=== PATIENT | female | born 1955 | race Hispanic/Latino ===

== ENCOUNTER 2016-11-04 11:19 | Inpatient (IN) | payer OTHER ==
--- NOTE | 2016-11-04 11:56 | C.PDOC ---
History Of Present Illness 61 y/o female PMHx diabetes, HTN, hyperthyroidism, depression, anxiety, peripheral edema brought in by EMS in rapid AFib, given 12.5 mg cardizem in the field. Pt states she "can't think straight" and reports occasional SOB. Denies headache, chest pain, nausea, vomiting, fever, abdominal pain, diarrhea, constipation or any other complaints. Pt is poor historian. Time Seen by Provider: 11/04/16 11:21 Chief Complaint (Nursing): Weakness/Neurological Deficit History Per: Patient History/Exam Limitations: no limitations Current Symptoms Are (Timing): Still Present Recent travel outside of the [place]: No Additional History Per: EMS Past Medical History Reviewed: Historical Data, Nursing Documentation, Vital Signs Vital Signs: Last Vital Signs Temp 99.4 F 11/04/16 11:32 Pulse 154 H 11/04/16 11:32 Resp 25 H 11/04/16 11:32 BP 148/88 11/04/16 11:32 Pulse Ox 90 L 11/04/16 12:00 - Medical History PMH: Anxiety, Arthritis, Bronchitis, Depression, Diabetes, HTN, Hyperthyroidism , Peripheral Edema - [facility] Procedures CENTRAL VENOUS CATHETER PLACEMENT WITH GUIDANCE (04/14/15) Family History: States: Unknown Family Hx - Social History Hx Tobacco Use: Yes Hx Alcohol Use: No Hx Substance Use: No - Immunization History Hx Tetanus Toxoid Vaccination: No Hx Influenza Vaccination: No Hx Pneumococcal Vaccination: No Review Of Systems Constitutional: Negative for: Fever, Chills Cardiovascular: Negative for: Chest Pain Respiratory: Positive for: Shortness of Breath Gastrointestinal: Negative for: Nausea, Vomiting, Abdominal Pain, Diarrhea, Constipation Neurological: Negative for: Headache Physical Exam - Physical Exam Appears: No Acute Distress, Unkempt, Other (obese) Skin: Warm, Dry Head: Atraumatic, Normacephalic Eye(s): bilateral: EOMI Neck: Normal ROM, Supple Chest: Symmetrical Cardiovascular: Rhythm Regular, No Murmur Respiratory: No Rales, No Rhonchi, Wheezing (scattered) Gastrointestinal/Abdominal: Soft, No Tenderness Extremity: Other (severe bilateral lower extremity cellulitis with bulla and oozing) Neurological/Psych: Oriented x3 ED Course And Treatment - Laboratory Results Result Diagrams: 11/04/16 12:14 11/04/16 12:14 O2 Sat by Pulse Oximetry: 90 (on room air) Pulse Ox Interpretation: Normal Medical Decision Making Medical Decision Making: Plan: EKG, CXR, labs, cardizem, UA Spoke with Dr. Carbajal, patient with DKA, needs ICU. Spoke with Dr. Redmond , will accept the admission Disposition Discussed With : Pablo Chin Doctor Will See Patient In The: Hospital - Disposition Disposition: HOSPITALIZED Disposition Time: 13:16 Condition: CRITICAL - Clinical Impression Clinical Impression: DKA (diabetic ketoacidoses), Diabetes, Bilateral lower leg cellulitis - Scribe Statement The provider has reviewed the documentation as recorded by the Emma Chen Provider Attestation: All medical record entries made by the Emma were at my direction and personally dictated by me. I have reviewed the chart and agree that the record accurately reflects my personal performance of the history, physical exam, medical decision making, and the department course for this patient. I have also personally directed, reviewed, and agree with the discharge instructions and disposition. Decision To Admit - Pt Status Changed To: Hospital Disposition Of: Inpatient - Admit Certification Admit to Inpatient:: After my assessment, the patient will require hospitalization for at least two midnights. This is because of the severity of symptoms shown, intensity of services needed, and/or the medical risk in this patient being treated as an outpatient. - InPatient: Physician Admission Certification: I certify that this patient requires 2 or more midnights of care for the following reason:: dka - . Bed Request Type: ICU Patient Diagnosis: DKA (diabetic ketoacidoses), Diabetes, Bilateral lower leg cellulitis
--- NOTE | 2016-11-04 12:04 | RAD ---
HISTORY: Sepsis Patient COMPARISON: 04/16/2015. FINDINGS: LUNGS: No focal airspace opacity. Hilar enlargement bilaterally. PLEURA: No significant pleural effusion identified, no pneumothorax apparent. CARDIOVASCULAR: Mildly enlarged cardiomediastinal silhouette when compared to prior radiograph. OSSEOUS STRUCTURES: No significant abnormalities. VISUALIZED UPPER ABDOMEN: Upper abdomen is suboptimally evaluated. OTHER FINDINGS: Interval removal of left-sided PICC. IMPRESSION: Bilateral hilar enlargement again noted. Interval removal of left-sided PICC. Mildly enlarged cardiomediastinal silhouette when compared to prior radiograph. Recommend PA lateral chest radiograph if possible.
[2016-11-04] MEDS ORDERED: (Novolin R) Insulin Human Regular 100 units/ml vial IV ONE (12:11)
[2016-11-04 12:22] LABS: BASO % 0.3 % (0.0-2.0)
[2016-11-04 12:26] LABS: CHLORIDE 91 mmol/L (98-107)
[2016-11-04 12:27] LABS: POTASSIUM 5.1 mmol/L (3.6-5.2); SODIUM 129 mmol/L (132-148)
[2016-11-04 12:28] LABS: INR 1.3
[2016-11-04 12:29] LABS: CARBON DIOXIDE 18 mmol/L (22-30); GFR AFRICAN-AMERICAN 55
[2016-11-04 12:30] LABS: ALB/GLOB RATIO 1.3 (1.0-2.1); ALKALINE PHOSPHATASE 157 U/L (38-126); ALT/SGPT 96 U/L (9-52); AST/SGOT 77 U/L (14-36); BILIRUBIN,TOTAL 1.3 mg/dL (0.2-1.3); BLOOD UREA NITROGEN 44 mg/dL (7-17); CALCIUM 8.9 mg/dl (8.6-10.4); TOTAL PROTEIN 6.1 g/dL (6.3-8.3)
[2016-11-04 12:31] LABS: MAGNESIUM 2.4 mg/dL (1.6-2.3)
[2016-11-04] MEDS ORDERED: (Novolin R) Insulin Human Regular 100 units/ml vial ONE (12:31)
[2016-11-04 12:34] LABS: VENOUS BLOOD GAS BASE EXCESS -4.5 mmol/L (0.0-2.0); VENOUS BLOOD GAS PCO2 59 mmHg (40-60); VENOUS BLOOD PH 7.22 (7.32-7.43)
[2016-11-04 12:40] LABS: RBC URINE 2 /hpf (0-3); URINE BACTERIA RARE (<OCC); URINE BILIRUBIN NEGATIVE (NEGATIVE); URINE BLOOD NEGATIVE (NEGATIVE); URINE COLOR Yellow (YELLOW); URINE GLUCOSE (UA) 3+ mg/dL (Normal); URINE KETONE NEGATIVE (NEGATIVE); URINE LEUKOCYTE ESTERASE NEG Leu/uL (Negative); URINE PROTEIN NEGATIVE (NEGATIVE); URINE UROBILINOGEN NORMAL mg/dL (0.2-1.0); WBC URINE 2 /hpf (0-5)
[2016-11-04 12:40] LABS: HEMATOCRIT 49.7 % (34.0-47.0); LYMPH % 9.5 % (20.0-40.0); MEAN CELL VOLUME 94.1 fL (81.0-99.0); MEAN CORPUSCULAR HEMOGLOBIN 29.2 pg (27.0-31.0); MEAN PLATELET VOLUME 9.4 fL (7.2-11.7); MONO # 0.9 K/uL (0.0-0.8); NRBC % 0.1 % (0.0-2.0); PLATELET COUNT 261 K/uL (130-400); RED CELL DISTRIBUTION WIDTH 15.2 % (11.5-14.5); WHITE BLOOD COUNT 10.5 K/uL (4.8-10.8)
[2016-11-04] MEDS ORDERED: Sodium Chloride 0.9% 1,000 ML IV ONE (12:43)
[2016-11-04 12:50] LABS: GLUCOSE,RANDOM 1023 mg/dL (65-105)
[2016-11-04 12:53] LABS: NEUTROPHIL 82 % (50-75); TOTAL CELLS COUNTED 100
[2016-11-04] MEDS ORDERED: Piperacillin/Tazobact 3.375 gm 100 ML IV STA (13:04)
[2016-11-04] MEDS ORDERED: Insulin Human Regular 100 UNIT in Sodium Chloride 0.9% 99 ML IV SCH ×2 (13:15→18:06)
--- NOTE | 2016-11-04 15:57 | CP.CCUPN ---
CCU Subjective - Physician Review Events Since Last Encounter (Free Text): 11/04/16 16:21 61 F with past medical history of diabetes, HTN, hyperthyroidism, depression, anxiety, and peripheral edema brought in by EMS in rapid A-fib and hyperglycemia. Patient was given 12.5 mg cardizem in the field. Patient had difficulties with thinking and reported occasional SOB. Patient was found to be in DKA, has a random glucose level of 1023. Urine is negative for ketones. Patient denies, headache, chest pain, nausea, vomiting, fever, abdominal pain, diarrhea, constipation. Patient is a poor historian due to altered mental status. She was started on IV Hydrations, insulin drip and cardiazem drip CCU Objective - Vital Signs / Intake & Output Vital Signs (Last 4 hours): Vital Signs Temp Pulse Resp BP Pulse Ox 11/04/16 14:30 98.9 F 133 H 22 156/98 H 96 11/04/16 13:18 90 L - Physical Exam Physical Exam Limitations: Positive for: Clinical Condition Head: Positive for: Atraumatic, Normocephalic Pupils: Positive for: PERRL. Negative for: Sluggish, Non-Reactive Extroacular Muscles: Positive for: EOMI. Negative for: Gaze Palsy Conjunctiva: Positive for: Normal. Negative for: Injected, Icteric Neck: Positive for: Normal Range of Motion, Trachea Midline. Negative for: Meningeal Signs, MIDLINE TENDERNESS, Paraspinal Tenderness, JVD, Lymphadenopathy , Bruit, Other Respiratory/Chest: Positive for: Wheezes, Decreased Breath Sounds. Negative for : Rales Cardiovascular: Positive for: Irregular Rhythm, Peripheal Pulses Present, Tachycardic. Negative for: Murmurs, Normal S1, S2 Abdomen: Negative for: Tenderness, Distention - Medications Active Medications: Active Medications Generic Name Dose Route Start Last Admin Trade Name Freq PRN Reason Stop Dose Admin Albuterol/Ipratropium 3 ml 11/04/16 15:49 Duoneb 3 Mg/0.5 Mg (3 Ml) Ud INH 11/04/16 15:50 RSTAT STA Diltiazem HCl 125 mg/ Sodium 125 mls @ 5 mls/hr 11/04/16 11:41 11/04/16 12:15 Chloride IV 11/05/16 11:40 5 mls/hr .Q24H ONE Administration 5 MG/HR Insulin Human Regular 100 unit 100 mls @ 2 mls/hr 11/04/16 13:15 11/04/16 14:00 / Sodium Chloride IV 2 mls/hr .Q24H CRISTOBAL Administration Vancomycin HCl 250 mls @ 166.667 mls/hr 11/04/16 13:15 Vancomycin 1gm In Normal Saline Addvantage IV STAT CRISTOBAL Nystatin 0 ea 11/04/16 18:00 Mycostatin Cream TOP TID CRISTOBAL - Patient Studies Lab Studies: Lab Studies 11/04/16 11/04/16 Range/Units 14:51 13:31 POC Glucose (mg/dL) > 500 H* > 500 H* (65-110) mg/dL Laboratory Results - last 24 hr 11/04/16 11/04/16 13:31 14:51 POC Glucose (mg/dL) > 500 H* > 500 H* Fingerstick Blood Sugar Results: 500 Assessment/Plan (1) DKA (diabetic ketoacidoses) Current Visit: Yes Status: Acute (2) Bilateral lower leg cellulitis Current Visit: Yes Status: Acute Comment: (3) Hypothyroidism Current Visit: No Status: Acute (4) Obesity (BMI 30-39.9) Current Visit: No Status: Acute (5) HTN (hypertension) Current Visit: No Status: Chronic Comment: (6) Lymphedema of both lower extremities Current Visit: No Status: Acute (7) Type II diabetes mellitus Current Visit: No Status: Acute (8) Hyperthyroidism Current Visit: No Status: Chronic Comment: TSH 0.05 follow up outpatient (9) Prophylactic measure Current Visit: No Status: Acute Comment: Lovenox 40mg SC daily Protonix 40mg PO Daily - Assessment and Plan (Free Text) Plan: Neuro: Neurochecks q4 Cardio: Rapid A-fib @ 168 bpm Diltiazem 125 @ 5 cc/hr IV Q24H, 15 mg/hr, titrate for HR control <100 NT Pro BNPL 9500 11/04 EKG: atrial fibrillation + RVR @ 153 bpm Pulm: Maintain O2 Sat >92% VBG pH 7.22, CO2 59, O2 45, HCO3 20.7, VBG O2 Sat 76.2 Imagin/17 CXR: bilateral hilar enlargement. Interval removal of left sided PICC, mildly enlarged cardiomediastinal silhouette when compared to prior radiographs. Lateral PA radiograph recommended. Endo: HHS Vs DKA SOsm 331, with glucose of 1023 Glucose 1023 Sodium 129 Potassium 5.1 Agressive hydration and volume resuscitations Insulin drip Human Regular 100 cc @ 2 cc/hr IV Q24H CRISTOBAL~ 100 units Novolin R / NS 99cc IV 2 cc/hr Accucheck q4 Monitor potassium q4~ GI: NPO, IV protonix Renal: BUN/Cr: 44/1.2 UA: pH 5.0, specific gravity 1.025, negative for ketones, 3+ H for Glucose Monitor I/Os Hyponatremic~ ID: Daily CBC IV Zosyn and IV Vancomycin Prophylaxis: DVT: SQ Lovenox GI: IV protonix
[2016-11-04] MEDS ORDERED: Albuterol-Ipratrop 3 mg / 0.5 (3 ml) UD INH STA (16:11)
[2016-11-04] MEDS ORDERED: Piperacillin/Tazobact 3.375 GM in Sodium Chloride 0.9% 100 ML IVPB STA (16:14)
--- NOTE | 2016-11-04 16:21 | RAD ---
HISTORY: R/O Congesion COMPARISON: Comparison is made to the previous study dated 11/04/2016 FINDINGS: LUNGS: No significant interval change in the lungs since the previous exam. PLEURA: Blunting of the right costophrenic angle. CARDIOVASCULAR: The heart is enlarged. OSSEOUS STRUCTURES: No significant abnormalities. VISUALIZED UPPER ABDOMEN: Normal. OTHER FINDINGS: None. IMPRESSION: No significant interval change compared to the previous study.
[2016-11-04] MEDS: Piperacill/Tazo 3.375gm in Dex 50 ML IVPB SCH ×2 (16:40→23:13)
[2016-11-04] MEDS ORDERED: Sodium Chloride 0.9% 1,000 ML IV SCH (18:15)
[2016-11-04] MEDS: Enoxaparin 40 mg Syringe SC SCH (18:24)
[2016-11-04] MEDS: Nystatin 100,000 Units/gm Cream(15 gm) TOP SCH (18:25)
[2016-11-04] MEDS: Vancomycin 1 gm/NS 200 ml 200 ML IVPB SCH (18:28)
[2016-11-04] MEDS ORDERED: Metoprolol 1 mg/ml Inj IVP STA (19:30)
[2016-11-04 19:41] LABS: ABG ALLEN TEST POS; ARTERIAL BLOOD HGB O2 SAT 96.9 % (95.0-98.0); DRAW SITE RRA; HHB 0.1 % (0.0-5.0)
[2016-11-04] MEDS: Metoprolol 1 mg/ml Inj IVP SCH (20:17)
[2016-11-04 21:49] LABS: POTASSIUM 4.3 mmol/L (3.6-5.2)
[2016-11-04 21:51] LABS: ALB/GLOB RATIO 1.2 (1.0-2.1); BILIRUBIN,TOTAL 0.8 mg/dL (0.2-1.3); PHOSPHOROUS 5.9 mg/dL (2.5-4.5); TOTAL PROTEIN 5.8 g/dL (6.3-8.3)
[2016-11-04 21:52] LABS: CALCIUM 8.8 mg/dl (8.6-10.4); MAGNESIUM 2.4 mg/dL (1.6-2.3)
[2016-11-05] MEDS: Dextrose 5%/0.45% NS 1,000 ML IV SCH ×2 (01:10→12:57)
[2016-11-05] MEDS ORDERED: Insulin Human Regular 100 UNIT in Sodium Chloride 0.9% 99 ML IV SCH (01:30)
[2016-11-05] MEDS: Metoprolol 1 mg/ml Inj IVP SCH ×4 (01:49→19:31)
[2016-11-05] MEDS: Vancomycin 1 gm/NS 200 ml 200 ML IVPB SCH ×2 (05:02→16:34)
[2016-11-05] MEDS: Piperacill/Tazo 3.375gm in Dex 50 ML IVPB SCH ×4 (05:02→21:45)
[2016-11-05 05:11] LABS: BASO % 0.2 % (0.0-2.0); EOS % 0.2 % (0.0-4.0); HEMATOCRIT 41.3 % (34.0-47.0); LYMPH # 3.1 K/uL (1.0-4.3); LYMPH % 16.8 % (20.0-40.0); MEAN CELL VOLUME 88.1 fL (81.0-99.0); MEAN CORPUSCULAR HEMOGLOBIN 29.3 pg (27.0-31.0); MEAN CORPUSCULAR HGB CONC 33.3 g/dL (33.0-37.0); MEAN PLATELET VOLUME 8.8 fL (7.2-11.7); MONO # 1.7 K/uL (0.0-0.8); RED CELL DISTRIBUTION WIDTH 14.3 % (11.5-14.5); WHITE BLOOD COUNT 18.6 K/uL (4.8-10.8)
[2016-11-05 05:24] LABS: POTASSIUM 4.3 mmol/L (3.6-5.2)
[2016-11-05 05:26] LABS: BILIRUBIN,TOTAL 1.2 mg/dL (0.2-1.3); TOTAL PROTEIN 5.5 g/dL (6.3-8.3)
[2016-11-05 05:27] LABS: CALCIUM 8.7 mg/dl (8.6-10.4)
[2016-11-05 05:28] LABS: MAGNESIUM 2.3 mg/dL (1.6-2.3)
[2016-11-05 08:35] LABS: ABG ALLEN TEST PO; ARTERIAL BLOOD HGB O2 SAT 96.2 % (95.0-98.0); CARBOXYHEMOGLOBIN 2.2 % (0.5-1.5); DRAW SITE RRA; HHB 0.6 % (0.0-5.0); METHEMOGLOBIN 0.9 % (0.0-3.0)
[2016-11-05] MEDS: Enoxaparin 40 mg Syringe SC SCH (09:11)
[2016-11-05] MEDS: Nystatin 100,000 Units/gm Cream(15 gm) TOP SCH ×3 (09:12→18:28)
[2016-11-05] MEDS: (Novolin R) Insulin Human Regular 100 units/ml vial SC SCH ×3 (12:56→21:30)
--- NOTE | 2016-11-05 18:58 | CP.CCUPN ---
CCU Subjective - Physician Review Events Since Last Encounter (Free Text): 11/05/16 18:55 Patient seen and examined in the intensive care unit. Case discussed in the morning rounds. Overnight placed on BiPAP for respiratory distress poorly Response Afebrile On Cardizem drip at 10 mg/h for atrial fibrillation with rapid ventricular response off insulin drip Swelling of the lower extremities CCU Objective - Vital Signs / Intake & Output Vital Signs (Last 4 hours): Vital Signs Temp Pulse Resp BP Pulse Ox 11/05/16 17:00 121 H 25 H 123/93 H 96 11/05/16 16:00 98.1 F 119 H 18 118/73 96 11/05/16 15:50 118 H 11/05/16 15:00 111 H 19 98 Intake and Output (Last 8hrs): Intake & Output 11/05/16 11/05/16 11/05/16 06:59 14:59 22:59 Intake Total 908 882 330 Output Total 375 340 225 Balance 533 542 105 Intake: Intake, IV Amount 908 882 330 Left Hand 80 80 30 Right Antecubital 800 800 300 Right Hand 28 2 Output: Urine 375 340 225 Urethral ([place]) 375 340 225 - Physical Exam Head: Positive for: Atraumatic, Normocephalic Pupils: Positive for: PERRL. Negative for: Sluggish, Non-Reactive Extroacular Muscles: Positive for: EOMI. Negative for: Gaze Palsy Conjunctiva: Positive for: Normal. Negative for: Injected, Icteric Neck: Positive for: Normal Range of Motion, Trachea Midline. Negative for: Meningeal Signs, MIDLINE TENDERNESS, Paraspinal Tenderness, JVD, Lymphadenopathy , Bruit, Other Respiratory/Chest: Positive for: Wheezes, Decreased Breath Sounds. Negative for : Rales Cardiovascular: Positive for: Irregular Rhythm, Peripheal Pulses Present, Tachycardic. Negative for: Murmurs, Normal S1, S2 Abdomen: Negative for: Tenderness, Distention Upper Extremity: Positive for: Normal Inspection Lower Extremity: Positive for: Edema - Medications Active Medications: Active Medications Generic Name Dose Route Start Last Admin Trade Name Freq PRN Reason Stop Dose Admin Enoxaparin Sodium 40 mg 11/04/16 16:45 11/05/16 09:11 Lovenox SC 40 mg DAILY CRISTOBAL Administration Piperacillin Sod/Tazobactam Sod 50 mls @ 100 mls/hr 11/04/16 16:45 11/05/16 16: 34 Zosyn 3.375 Gm Iv Premix IVPB 100 mls/hr Q6H CRISTOBAL Administration Vancomycin/Sodium Chloride 200 mls @ 133.333 mls/hr 11/04/16 17:00 11/05/16 16: 34 Vancocin IVPB 11/09/16 17:01 133.333 mls/hr Q12H CRISTOBAL Administration Dextrose/Sodium Chloride 1,000 mls @ 100 mls/hr 11/05/16 01:15 11/05/16 12:57 Dextrose 5%/0.45% Ns 1000 Ml IV 100 mls/hr .Q10H CRISTOBAL Administration Insulin Human Regular 0 unit 11/05/16 11:30 11/05/16 16:35 Novolin R SC 7 unit ACHS CRISTOBAL Administration Metoprolol Tartrate 5 mg 11/04/16 19:45 11/05/16 14:50 Lopressor IVP 5 mg Q6H CRISTOBAL Administration Nystatin 0 ea 11/04/16 18:00 11/05/16 18:28 Mycostatin Cream TOP 1 units TID CRISTOBAL Administration Pantoprazole Sodium 40 mg 11/04/16 16:45 11/05/16 09:11 Protonix Inj IVP 40 mg DAILY CRISTOBAL Administration - Patient Studies Lab Studies: Lab Studies 11/05/16 11/05/16 11/05/16 Range/Units 16:04 11:35 08:20 WBC (4.8-10.8) K/uL RBC (3.80-5.20) Mil/uL Hgb (11.0-16.0) g/dL Hct (34.0-47.0) % MCV (81.0-99.0) fL MCH (27.0-31.0) pg MCHC (33.0-37.0) g/dL RDW (11.5-14.5) % Plt Count (130-400) K/uL MPV (7.2-11.7) fL Neut % (Auto) (50.0-75.0) % Lymph % (Auto) (20.0-40.0) % Daggett % (Auto) (0.0-10.0) % Eos % (Auto) (0.0-4.0) % Baso % (Auto) (0.0-2.0) % Neut # (1.8-7.0) K/uL Lymph # (1.0-4.3) K/uL Daggett # (0.0-0.8) K/uL Eos # (0.0-0.7) K/uL Baso # (0.0-0.2) K/uL Puncture Site Rra pCO2 48 H (35-45) mm/Hg pO2 105 H (80-100) mm/Hg HCO3 27.5 (21-28) mmol/L ABG pH 7.39 (7.35-7.45) ABG Total CO2 30.6 H (22-28) mmol/L ABG O2 Saturation 99.4 H (95-98) % ABG Base Excess 3.3 H (-2.0-3.0) mmol/L ABG Hemoglobin 13.6 (11.7-17.4) g/dL ABG Carboxyhemoglobin 2.2 H (0.5-1.5) % POC ABG HHb (Measured) 0.6 (0.0-5.0) % ABG Methemoglobin 0.9 (0.0-3.0) % Chaz Test Po A-a O2 Difference 120.0 mm/Hg Respiratory Index 1.1 Hgb O2 Saturation 96.2 (95.0-98.0) % FiO2 40.0 % Inspiratory BiPAP 18 Expiratory BiPAP 5 Sodium (132-148) mmol/L Potassium (3.6-5.2) mmol/L Chloride (98-107) mmol/L Carbon Dioxide (22-30) mmol/L Anion Gap (10-20) BUN (7-17) mg/dL Creatinine (0.7-1.2) MG/DL Est GFR ( Amer) Est GFR (Non-Af Amer) POC Glucose (mg/dL) 273 H 307 H (65-110) mg/dL Random Glucose (65-105) mg/dL Calcium (8.6-10.4) mg/dl Phosphorus (2.5-4.5) mg/dL Magnesium (1.6-2.3) mg/dL Total Bilirubin (0.2-1.3) mg/dL AST (14-36) U/L ALT (9-52) U/L Alkaline Phosphatase (38-126) U/L Total Protein (6.3-8.3) g/dL Albumin (3.5-5.0) g/dL Globulin (2.2-3.9) gm/dL Albumin/Globulin Ratio (1.0-2.1) 11/05/16 11/05/16 11/05/16 Range/Units 07:47 07:03 06:08 WBC (4.8-10.8) K/uL RBC (3.80-5.20) Mil/uL Hgb (11.0-16.0) g/dL Hct (34.0-47.0) % MCV (81.0-99.0) fL MCH (27.0-31.0) pg MCHC (33.0-37.0) g/dL RDW (11.5-14.5) % Plt Count (130-400) K/uL MPV (7.2-11.7) fL Neut % (Auto) (50.0-75.0) % Lymph % (Auto) (20.0-40.0) % Daggett % (Auto) (0.0-10.0) % Eos % (Auto) (0.0-4.0) % Baso % (Auto) (0.0-2.0) % Neut # (1.8-7.0) K/uL Lymph # (1.0-4.3) K/uL Daggett # (0.0-0.8) K/uL Eos # (0.0-0.7) K/uL Baso # (0.0-0.2) K/uL Puncture Site pCO2 (35-45) mm/Hg pO2 (80-100) mm/Hg HCO3 (21-28) mmol/L ABG pH (7.35-7.45) ABG Total CO2 (22-28) mmol/L ABG O2 Saturation (95-98) % ABG Base Excess (-2.0-3.0) mmol/L ABG Hemoglobin (11.7-17.4) g/dL ABG Carboxyhemoglobin (0.5-1.5) % POC ABG HHb (Measured) (0.0-5.0) % ABG Methemoglobin (0.0-3.0) % Chaz Test A-a O2 Difference mm/Hg Respiratory Index Hgb O2 Saturation (95.0-98.0) % FiO2 % Inspiratory BiPAP Expiratory BiPAP Sodium (132-148) mmol/L Potassium (3.6-5.2) mmol/L Chloride (98-107) mmol/L Carbon Dioxide (22-30) mmol/L Anion Gap (10-20) BUN (7-17) mg/dL Creatinine (0.7-1.2) MG/DL Est GFR ( Amer) Est GFR (Non-Af Amer) POC Glucose (mg/dL) 217 H 215 H 186 H (65-110) mg/dL Random Glucose (65-105) mg/dL Calcium (8.6-10.4) mg/dl Phosphorus (2.5-4.5) mg/dL Magnesium (1.6-2.3) mg/dL Total Bilirubin (0.2-1.3) mg/dL AST (14-36) U/L ALT (9-52) U/L Alkaline Phosphatase (38-126) U/L Total Protein (6.3-8.3) g/dL Albumin (3.5-5.0) g/dL Globulin (2.2-3.9) gm/dL Albumin/Globulin Ratio (1.0-2.1) 11/05/16 11/05/16 11/05/16 Range/Units 05:08 05:01 04:03 WBC 18.6 H D (4.8-10.8) K/uL RBC 4.69 (3.80-5.20) Mil/uL Hgb 13.8 (11.0-16.0) g/dL Hct 41.3 (34.0-47.0) % MCV 88.1 D (81.0-99.0) fL MCH 29.3 (27.0-31.0) pg MCHC 33.3 (33.0-37.0) g/dL RDW 14.3 (11.5-14.5) % Plt Count 207 (130-400) K/uL MPV 8.8 (7.2-11.7) fL Neut % (Auto) 73.8 (50.0-75.0) % Lymph % (Auto) 16.8 L (20.0-40.0) % [place] % (Auto) 9.0 (0.0-10.0) % Eos % (Auto) 0.2 (0.0-4.0) % Baso % (Auto) 0.2 (0.0-2.0) % Neut # 13.7 H (1.8-7.0) K/uL Lymph # 3.1 (1.0-4.3) K/uL Daggett # 1.7 H (0.0-0.8) K/uL Eos # 0.0 (0.0-0.7) K/uL Baso # 0.0 (0.0-0.2) K/uL Puncture Site pCO2 (35-45) mm/Hg pO2 (80-100) mm/Hg HCO3 (21-28) mmol/L ABG pH (7.35-7.45) ABG Total CO2 (22-28) mmol/L ABG O2 Saturation (95-98) % ABG Base Excess (-2.0-3.0) mmol/L ABG Hemoglobin (11.7-17.4) g/dL ABG Carboxyhemoglobin (0.5-1.5) % POC ABG HHb (Measured) (0.0-5.0) % ABG Methemoglobin (0.0-3.0) % Chaz Test A-a O2 Difference mm/Hg Respiratory Index Hgb O2 Saturation (95.0-98.0) % FiO2 % Inspiratory BiPAP Expiratory BiPAP Sodium 138 (132-148) mmol/L Potassium 4.3 (3.6-5.2) mmol/L Chloride 102 (98-107) mmol/L Carbon Dioxide 25 (22-30) mmol/L Anion Gap 15 (10-20) BUN 52 H (7-17) mg/dL Creatinine 1.5 H (0.7-1.2) MG/DL Est GFR ( Amer) 43 Est GFR (Non-Af Amer) 35 POC Glucose (mg/dL) 175 H 116 H (65-110) mg/dL Random Glucose 163 H (65-105) mg/dL Calcium 8.7 (8.6-10.4) mg/dl Phosphorus 5.0 H (2.5-4.5) mg/dL Magnesium 2.3 (1.6-2.3) mg/dL Total Bilirubin 1.2 (0.2-1.3) mg/dL AST 105 H D (14-36) U/L ALT 122 H (9-52) U/L Alkaline Phosphatase 126 (38-126) U/L Total Protein 5.5 L (6.3-8.3) g/dL Albumin 2.7 L (3.5-5.0) g/dL Globulin 2.8 (2.2-3.9) gm/dL Albumin/Globulin Ratio 1.0 (1.0-2.1) 11/05/16 11/05/16 11/05/16 Range/Units 03:02 01:56 00:56 WBC (4.8-10.8) K/uL RBC (3.80-5.20) Mil/uL Hgb (11.0-16.0) g/dL Hct (34.0-47.0) % MCV (81.0-99.0) fL MCH (27.0-31.0) pg MCHC (33.0-37.0) g/dL RDW (11.5-14.5) % Plt Count (130-400) K/uL MPV (7.2-11.7) fL Neut % (Auto) (50.0-75.0) % Lymph % (Auto) (20.0-40.0) % [place] % (Auto) (0.0-10.0) % Eos % (Auto) (0.0-4.0) % Baso % (Auto) (0.0-2.0) % Neut # (1.8-7.0) K/uL Lymph # (1.0-4.3) K/uL [place] # (0.0-0.8) K/uL Eos # (0.0-0.7) K/uL Baso # (0.0-0.2) K/uL Puncture Site pCO2 (35-45) mm/Hg pO2 (80-100) mm/Hg HCO3 (21-28) mmol/L ABG pH (7.35-7.45) ABG Total CO2 (22-28) mmol/L ABG O2 Saturation (95-98) % ABG Base Excess (-2.0-3.0) mmol/L ABG Hemoglobin (11.7-17.4) g/dL ABG Carboxyhemoglobin (0.5-1.5) % POC ABG HHb (Measured) (0.0-5.0) % ABG Methemoglobin (0.0-3.0) % Chaz Test A-a O2 Difference mm/Hg Respiratory Index Hgb O2 Saturation (95.0-98.0) % FiO2 % Inspiratory BiPAP Expiratory BiPAP Sodium (132-148) mmol/L Potassium (3.6-5.2) mmol/L Chloride (98-107) mmol/L Carbon Dioxide (22-30) mmol/L Anion Gap (10-20) BUN (7-17) mg/dL Creatinine (0.7-1.2) MG/DL Est GFR ( Amer) Est GFR (Non-Af Amer) POC Glucose (mg/dL) 77 99 136 H (65-110) mg/dL Random Glucose (65-105) mg/dL Calcium (8.6-10.4) mg/dl Phosphorus (2.5-4.5) mg/dL Magnesium (1.6-2.3) mg/dL Total Bilirubin (0.2-1.3) mg/dL AST (14-36) U/L ALT (9-52) U/L Alkaline Phosphatase (38-126) U/L Total Protein (6.3-8.3) g/dL Albumin (3.5-5.0) g/dL Globulin (2.2-3.9) gm/dL Albumin/Globulin Ratio (1.0-2.1) 11/04/16 11/04/16 11/04/16 Range/Units 23:08 22:11 21:40 WBC (4.8-10.8) K/uL RBC (3.80-5.20) Mil/uL Hgb (11.0-16.0) g/dL Hct (34.0-47.0) % MCV (81.0-99.0) fL MCH (27.0-31.0) pg MCHC (33.0-37.0) g/dL RDW (11.5-14.5) % Plt Count (130-400) K/uL MPV (7.2-11.7) fL Neut % (Auto) (50.0-75.0) % Lymph % (Auto) (20.0-40.0) % [place] % (Auto) (0.0-10.0) % Eos % (Auto) (0.0-4.0) % Baso % (Auto) (0.0-2.0) % Neut # (1.8-7.0) K/uL Lymph # (1.0-4.3) K/uL [place]gett # (0.0-0.8) K/uL Eos # (0.0-0.7) K/uL Baso # (0.0-0.2) K/uL Puncture Site pCO2 (35-45) mm/Hg pO2 (80-100) mm/Hg HCO3 (21-28) mmol/L ABG pH (7.35-7.45) ABG Total CO2 (22-28) mmol/L ABG O2 Saturation (95-98) % ABG Base Excess (-2.0-3.0) mmol/L ABG Hemoglobin (11.7-17.4) g/dL ABG Carboxyhemoglobin (0.5-1.5) % POC ABG HHb (Measured) (0.0-5.0) % ABG Methemoglobin (0.0-3.0) % Chaz Test A-a O2 Difference mm/Hg Respiratory Index Hgb O2 Saturation (95.0-98.0) % FiO2 % Inspiratory BiPAP Expiratory BiPAP Sodium 139 (132-148) mmol/L Potassium 4.3 (3.6-5.2) mmol/L Chloride 100 (98-107) mmol/L Carbon Dioxide 21 L (22-30) mmol/L Anion Gap 22 H (10-20) BUN 47 H (7-17) mg/dL Creatinine 1.5 H (0.7-1.2) MG/DL Est GFR ( Amer) 43 Est GFR (Non-Af Amer) 35 POC Glucose (mg/dL) 211 H 232 H (65-110) mg/dL Random Glucose 365 H (65-105) mg/dL Calcium 8.8 (8.6-10.4) mg/dl Phosphorus 5.9 H (2.5-4.5) mg/dL Magnesium 2.4 H (1.6-2.3) mg/dL Total Bilirubin 0.8 (0.2-1.3) mg/dL AST 87 H (14-36) U/L ALT 105 H (9-52) U/L Alkaline Phosphatase 127 H (38-126) U/L Total Protein 5.8 L (6.3-8.3) g/dL Albumin 3.1 L (3.5-5.0) g/dL Globulin 2.6 (2.2-3.9) gm/dL Albumin/Globulin Ratio 1.2 (1.0-2.1) 11/04/16 11/04/16 11/04/16 Range/Units 20:59 20:04 19:35 WBC (4.8-10.8) K/uL RBC (3.80-5.20) Mil/uL Hgb (11.0-16.0) g/dL Hct (34.0-47.0) % MCV (81.0-99.0) fL MCH (27.0-31.0) pg MCHC (33.0-37.0) g/dL RDW (11.5-14.5) % Plt Count (130-400) K/uL MPV (7.2-11.7) fL Neut % (Auto) (50.0-75.0) % Lymph % (Auto) (20.0-40.0) % [place] % (Auto) (0.0-10.0) % Eos % (Auto) (0.0-4.0) % Baso % (Auto) (0.0-2.0) % Neut # (1.8-7.0) K/uL Lymph # (1.0-4.3) K/uL Daggett # (0.0-0.8) K/uL Eos # (0.0-0.7) K/uL Baso # (0.0-0.2) K/uL Puncture Site Rra pCO2 63 H (35-45) mm/Hg pO2 173 H (80-100) mm/Hg HCO3 21.8 (21-28) mmol/L ABG pH 7.21 L (7.35-7.45) ABG Total CO2 27.1 (22-28) mmol/L ABG O2 Saturation 99.9 H (95-98) % ABG Base Excess -4.0 L (-2.0-3.0) mmol/L ABG Hemoglobin 14.9 (11.7-17.4) g/dL ABG Carboxyhemoglobin 2.0 H (0.5-1.5) % POC ABG HHb (Measured) 0.1 (0.0-5.0) % ABG Methemoglobin 1.0 (0.0-3.0) % Chaz Test Pos A-a O2 Difference 176.0 mm/Hg Respiratory Index 1.0 Hgb O2 Saturation 96.9 (95.0-98.0) % FiO2 60.0 % Inspiratory BiPAP 12 Expiratory BiPAP 6 Sodium (132-148) mmol/L Potassium (3.6-5.2) mmol/L Chloride (98-107) mmol/L Carbon Dioxide (22-30) mmol/L Anion Gap (10-20) BUN (7-17) mg/dL Creatinine (0.7-1.2) MG/DL Est GFR ( Amer) Est GFR (Non-Af Amer) POC Glucose (mg/dL) 326 H 353 H (65-110) mg/dL Random Glucose (65-105) mg/dL Calcium (8.6-10.4) mg/dl Phosphorus (2.5-4.5) mg/dL Magnesium (1.6-2.3) mg/dL Total Bilirubin (0.2-1.3) mg/dL AST (14-36) U/L ALT (9-52) U/L Alkaline Phosphatase (38-126) U/L Total Protein (6.3-8.3) g/dL Albumin (3.5-5.0) g/dL Globulin (2.2-3.9) gm/dL Albumin/Globulin Ratio (1.0-2.1) 11/04/16 11/04/16 Range/Units 19:29 17:53 WBC (4.8-10.8) K/uL RBC (3.80-5.20) Mil/uL Hgb (11.0-16.0) g/dL Hct (34.0-47.0) % MCV (81.0-99.0) fL MCH (27.0-31.0) pg MCHC (33.0-37.0) g/dL RDW (11.5-14.5) % Plt Count (130-400) K/uL MPV (7.2-11.7) fL Neut % (Auto) (50.0-75.0) % Lymph % (Auto) (20.0-40.0) % [place]gett % (Auto) (0.0-10.0) % Eos % (Auto) (0.0-4.0) % Baso % (Auto) (0.0-2.0) % Neut # (1.8-7.0) K/uL Lymph # (1.0-4.3) K/uL [place]gett # (0.0-0.8) K/uL Eos # (0.0-0.7) K/uL Baso # (0.0-0.2) K/uL Puncture Site pCO2 (35-45) mm/Hg pO2 (80-100) mm/Hg HCO3 (21-28) mmol/L ABG pH (7.35-7.45) ABG Total CO2 (22-28) mmol/L ABG O2 Saturation (95-98) % ABG Base Excess (-2.0-3.0) mmol/L ABG Hemoglobin (11.7-17.4) g/dL ABG Carboxyhemoglobin (0.5-1.5) % POC ABG HHb (Measured) (0.0-5.0) % ABG Methemoglobin (0.0-3.0) % Chaz Test A-a O2 Difference mm/Hg Respiratory Index Hgb O2 Saturation (95.0-98.0) % FiO2 % Inspiratory BiPAP Expiratory BiPAP Sodium (132-148) mmol/L Potassium (3.6-5.2) mmol/L Chloride (98-107) mmol/L Carbon Dioxide (22-30) mmol/L Anion Gap (10-20) BUN (7-17) mg/dL Creatinine (0.7-1.2) MG/DL Est GFR ( Amer) Est GFR (Non-Af Amer) POC Glucose (mg/dL) 466 H* > 500 H* (65-110) mg/dL Random Glucose (65-105) mg/dL Calcium (8.6-10.4) mg/dl Phosphorus (2.5-4.5) mg/dL Magnesium (1.6-2.3) mg/dL Total Bilirubin (0.2-1.3) mg/dL AST (14-36) U/L ALT (9-52) U/L Alkaline Phosphatase (38-126) U/L Total Protein (6.3-8.3) g/dL Albumin (3.5-5.0) g/dL Globulin (2.2-3.9) gm/dL Albumin/Globulin Ratio (1.0-2.1) Laboratory Results - last 24 hr 11/04/16 11/04/16 11/04/16 17:53 19:29 19:35 WBC RBC Hgb Hct MCV MCH MCHC RDW Plt Count MPV Neut % (Auto) Lymph % (Auto) [place]gett % (Auto) Eos % (Auto) Baso % (Auto) Neut # Lymph # Daggett # Eos # Baso # Puncture Site Rra pCO2 63 H pO2 173 H HCO3 21.8 ABG pH 7.21 L ABG Total CO2 27.1 ABG O2 Saturation 99.9 H ABG Base Excess -4.0 L ABG Hemoglobin 14.9 ABG Carboxyhemoglobin 2.0 H POC ABG HHb (Measured) 0.1 ABG Methemoglobin 1.0 Chaz Test Pos A-a O2 Difference 176.0 Respiratory Index 1.0 Hgb O2 Saturation 96.9 FiO2 60.0 Inspiratory BiPAP 12 Expiratory BiPAP 6 Sodium Potassium Chloride Carbon Dioxide Anion Gap BUN Creatinine Est GFR ( Amer) Est GFR (Non-Af Amer) POC Glucose (mg/dL) > 500 H* 466 H* Random Glucose Calcium Phosphorus Magnesium Total Bilirubin AST ALT Alkaline Phosphatase Total Protein Albumin Globulin Albumin/Globulin Ratio 11/04/16 11/04/16 11/04/16 20:04 20:59 21:40 WBC RBC Hgb Hct MCV MCH MCHC RDW Plt Count MPV Neut % (Auto) Lymph % (Auto) [place] % (Auto) Eos % (Auto) Baso % (Auto) Neut # Lymph # [place]gett # Eos # Baso # Puncture Site pCO2 pO2 HCO3 ABG pH ABG Total CO2 ABG O2 Saturation ABG Base Excess ABG Hemoglobin ABG Carboxyhemoglobin POC ABG HHb (Measured) ABG Methemoglobin Chaz Test A-a O2 Difference Respiratory Index Hgb O2 Saturation FiO2 Inspiratory BiPAP Expiratory BiPAP Sodium 139 Potassium 4.3 Chloride 100 Carbon Dioxide 21 L Anion Gap 22 H BUN 47 H Creatinine 1.5 H Est GFR ( Amer) 43 Est GFR (Non-Af Amer) 35 POC Glucose (mg/dL) 353 H 326 H Random Glucose 365 H Calcium 8.8 Phosphorus 5.9 H Magnesium 2.4 H Total Bilirubin 0.8 AST 87 H ALT 105 H Alkaline Phosphatase 127 H Total Protein 5.8 L Albumin 3.1 L Globulin 2.6 Albumin/Globulin Ratio 1.2 11/04/16 11/04/16 11/05/16 22:11 23:08 00:56 WBC RBC Hgb Hct MCV MCH MCHC RDW Plt Count MPV Neut % (Auto) Lymph % (Auto) [place]gett % (Auto) Eos % (Auto) Baso % (Auto) Neut # Lymph # [place]gett # Eos # Baso # Puncture Site pCO2 pO2 HCO3 ABG pH ABG Total CO2 ABG O2 Saturation ABG Base Excess ABG Hemoglobin ABG Carboxyhemoglobin POC ABG HHb (Measured) ABG Methemoglobin Chaz Test A-a O2 Difference Respiratory Index Hgb O2 Saturation FiO2 Inspiratory BiPAP Expiratory BiPAP Sodium Potassium Chloride Carbon Dioxide Anion Gap BUN Creatinine Est GFR ( Amer) Est GFR (Non-Af Amer) POC Glucose (mg/dL) 232 H 211 H 136 H Random Glucose Calcium Phosphorus Magnesium Total Bilirubin AST ALT Alkaline Phosphatase Total Protein Albumin Globulin Albumin/Globulin Ratio 11/05/16 11/05/16 11/05/16 01:56 03:02 04:03 WBC RBC Hgb Hct MCV MCH MCHC RDW Plt Count MPV Neut % (Auto) Lymph % (Auto) [place] % (Auto) Eos % (Auto) Baso % (Auto) Neut # Lymph # [place]gett # Eos # Baso # Puncture Site pCO2 pO2 HCO3 ABG pH ABG Total CO2 ABG O2 Saturation ABG Base Excess ABG Hemoglobin ABG Carboxyhemoglobin POC ABG HHb (Measured) ABG Methemoglobin Chaz Test A-a O2 Difference Respiratory Index Hgb O2 Saturation FiO2 Inspiratory BiPAP Expiratory BiPAP Sodium Potassium Chloride Carbon Dioxide Anion Gap BUN Creatinine Est GFR ( Amer) Est GFR (Non-Af Amer) POC Glucose (mg/dL) 99 77 116 H Random Glucose Calcium Phosphorus Magnesium Total Bilirubin AST ALT Alkaline Phosphatase Total Protein Albumin Globulin Albumin/Globulin Ratio 11/05/16 11/05/16 11/05/16 05:01 05:08 06:08 WBC 18.6 H D RBC 4.69 Hgb 13.8 Hct 41.3 MCV 88.1 D MCH 29.3 MCHC 33.3 RDW 14.3 Plt Count 207 MPV 8.8 Neut % (Auto) 73.8 Lymph % (Auto) 16.8 L [place] % (Auto) 9.0 Eos % (Auto) 0.2 Baso % (Auto) 0.2 Neut # 13.7 H Lymph # 3.1 Daggett # 1.7 H Eos # 0.0 Baso # 0.0 Puncture Site pCO2 pO2 HCO3 ABG pH ABG Total CO2 ABG O2 Saturation ABG Base Excess ABG Hemoglobin ABG Carboxyhemoglobin POC ABG HHb (Measured) ABG Methemoglobin Chaz Test A-a O2 Difference Respiratory Index Hgb O2 Saturation FiO2 Inspiratory BiPAP Expiratory BiPAP Sodium 138 Potassium 4.3 Chloride 102 Carbon Dioxide 25 Anion Gap 15 BUN 52 H Creatinine 1.5 H Est GFR ( Amer) 43 Est GFR (Non-Af Amer) 35 POC Glucose (mg/dL) 175 H 186 H Random Glucose 163 H Calcium 8.7 Phosphorus 5.0 H Magnesium 2.3 Total Bilirubin 1.2 AST 105 H D ALT 122 H Alkaline Phosphatase 126 Total Protein 5.5 L Albumin 2.7 L Globulin 2.8 Albumin/Globulin Ratio 1.0 11/05/16 11/05/16 11/05/16 07:03 07:47 08:20 WBC RBC Hgb Hct MCV MCH MCHC RDW Plt Count MPV Neut % (Auto) Lymph % (Auto) [place] % (Auto) Eos % (Auto) Baso % (Auto) Neut # Lymph # [place] # Eos # Baso # Puncture Site Rra pCO2 48 H pO2 105 H HCO3 27.5 ABG pH 7.39 ABG Total CO2 30.6 H ABG O2 Saturation 99.4 H ABG Base Excess 3.3 H ABG Hemoglobin 13.6 ABG Carboxyhemoglobin 2.2 H POC ABG HHb (Measured) 0.6 ABG Methemoglobin 0.9 Chaz Test Po A-a O2 Difference 120.0 Respiratory Index 1.1 Hgb O2 Saturation 96.2 FiO2 40.0 Inspiratory BiPAP 18 Expiratory BiPAP 5 Sodium Potassium Chloride Carbon Dioxide Anion Gap BUN Creatinine Est GFR ( Amer) Est GFR (Non-Af Amer) POC Glucose (mg/dL) 215 H 217 H Random Glucose Calcium Phosphorus Magnesium Total Bilirubin AST ALT Alkaline Phosphatase Total Protein Albumin Globulin Albumin/Globulin Ratio 11/05/16 11/05/16 11:35 16:04 WBC RBC Hgb Hct MCV MCH MCHC RDW Plt Count MPV Neut % (Auto) Lymph % (Auto) [place] % (Auto) Eos % (Auto) Baso % (Auto) Neut # Lymph # [place] # Eos # Baso # Puncture Site pCO2 pO2 HCO3 ABG pH ABG Total CO2 ABG O2 Saturation ABG Base Excess ABG Hemoglobin ABG Carboxyhemoglobin POC ABG HHb (Measured) ABG Methemoglobin Chaz Test A-a O2 Difference Respiratory Index Hgb O2 Saturation FiO2 Inspiratory BiPAP Expiratory BiPAP Sodium Potassium Chloride Carbon Dioxide Anion Gap BUN Creatinine Est GFR ( Amer) Est GFR (Non-Af Amer) POC Glucose (mg/dL) 307 H 273 H Random Glucose Calcium Phosphorus Magnesium Total Bilirubin AST ALT Alkaline Phosphatase Total Protein Albumin Globulin Albumin/Globulin Ratio Fingerstick Blood Sugar Results: 273 Review of Systems - Review of Systems Systems not reviewed;Unavailable: Other (On BiPAP) Assessment/Plan (1) Atrial fibrillation with rapid ventricular response Current Visit: Yes Status: Acute Comment: Continue Cardizem drip Echocardiogram Anticoagulation (2) Bilateral lower leg cellulitis Current Visit: Yes Status: Acute Comment: Continue antibiotics and follow up culture and sensitivity (3) Hyperosmolar non-ketotic state in patient with type 2 diabetes mellitus Current Visit: Yes Status: Acute (4) Respiratory failure with hypoxia Current Visit: Yes Status: Acute
[2016-11-05] MEDS ORDERED: Enoxaparin 80 mg Syringe SC SCH (19:10)
[2016-11-05] MEDS: Sodium Chloride 0.9% 1,000 ML IV SCH (19:52)
[2016-11-06] MEDS: Metoprolol 1 mg/ml Inj IVP SCH ×4 (02:10→20:06)
[2016-11-06] MEDS: Piperacill/Tazo 3.375gm in Dex 50 ML IVPB SCH ×4 (04:19→21:50)
[2016-11-06] MEDS: Vancomycin 1 gm/NS 200 ml 200 ML IVPB SCH ×2 (04:20→17:42)
[2016-11-06 06:41] LABS: BASO % 0.2 % (0.0-2.0); EOS % 0.2 % (0.0-4.0); HEMATOCRIT 43.1 % (34.0-47.0); LYMPH # 1.5 K/uL (1.0-4.3); LYMPH % 12.2 % (20.0-40.0); MEAN CORPUSCULAR HEMOGLOBIN 29.1 pg (27.0-31.0); MEAN PLATELET VOLUME 8.9 fL (7.2-11.7); MONO # 0.9 K/uL (0.0-0.8); MONO % 7.7 % (0.0-10.0); RED CELL DISTRIBUTION WIDTH 14.7 % (11.5-14.5); WHITE BLOOD COUNT 12.3 K/uL (4.8-10.8)
[2016-11-06 06:52] LABS: CHLORIDE 102 mmol/L (98-107); POTASSIUM 4.4 mmol/L (3.6-5.2); SODIUM 141 mmol/L (132-148)
[2016-11-06 06:54] LABS: BILIRUBIN,TOTAL 1.8 mg/dL (0.2-1.3); CARBON DIOXIDE 29 mmol/L (22-30); GFR AFRICAN-AMERICAN > 60
[2016-11-06 06:55] LABS: MAGNESIUM 2.4 mg/dL (1.6-2.3); PHOSPHOROUS 3.9 mg/dL (2.5-4.5); TOTAL PROTEIN 5.7 g/dL (6.3-8.3)
[2016-11-06 07:12] LABS: ALB/GLOB RATIO 0.9 (1.0-2.1); ALKALINE PHOSPHATASE 152 U/L (38-126); AST/SGOT 99 U/L (14-36); BLOOD UREA NITROGEN 56 mg/dL (7-17); GLUCOSE,RANDOM 191 mg/dL (65-105)
[2016-11-06 07:13] LABS: ALT/SGPT 119 U/L (9-52); CALCIUM 8.6 mg/dl (8.6-10.4)
[2016-11-06] MEDS: (Novolin R) Insulin Human Regular 100 units/ml vial SC SCH ×4 (07:45→21:49)
[2016-11-06] MEDS: Nystatin 100,000 Units/gm Cream(15 gm) TOP SCH ×3 (09:51→17:43)
[2016-11-06 12:27] LABS: ABG ALLEN TEST PO; CARBOXYHEMOGLOBIN 2.1 % (0.5-1.5); DRAW SITE RRA; METHEMOGLOBIN 0.9 % (0.0-3.0)
--- NOTE | 2016-11-06 18:55 | CP.CCUPN ---
CCU Subjective - Physician Review Events Since Last Encounter (Free Text): 11/06/16 18:55 patient still requiring BiPAP, no clinical changes CCU Objective - Vital Signs / Intake & Output Vital Signs (Last 4 hours): Vital Signs Temp Pulse Resp BP Pulse Ox 11/06/16 18:00 111 H 18 130/73 96 11/06/16 17:00 112 H 18 116/78 96 11/06/16 16:00 98.1 F 98 H 16 109/60 99 11/06/16 15:43 108 H 11/06/16 15:00 108 H 15 94 L Intake and Output (Last 8hrs): Intake & Output 11/06/16 11/06/16 11/06/16 06:59 14:59 22:59 Intake Total 1108 940 420 Output Total 425 380 80 Balance 683 560 340 Weight 274 lb 6.4 oz Intake: Intake, IV Amount 1108 940 420 Left Hand 58 40 20 Right Antecubital 800 800 400 Right Hand 250 100 Output: Urine 425 380 80 Urethral ([place]) 425 380 80 Other: # Bowel Movements 0 0 0 - Physical Exam Head: Positive for: Atraumatic, Normocephalic Pupils: Positive for: PERRL. Negative for: Sluggish, Non-Reactive Extroacular Muscles: Positive for: EOMI. Negative for: Gaze Palsy Conjunctiva: Positive for: Normal. Negative for: Injected, Icteric Neck: Positive for: Normal Range of Motion, Trachea Midline. Negative for: Meningeal Signs, MIDLINE TENDERNESS, Paraspinal Tenderness, JVD, Lymphadenopathy , Bruit, Other Respiratory/Chest: Positive for: Wheezes, Decreased Breath Sounds. Negative for : Rales Cardiovascular: Positive for: Irregular Rhythm, Peripheal Pulses Present, Tachycardic. Negative for: Murmurs, Normal S1, S2 Abdomen: Negative for: Tenderness, Distention Upper Extremity: Positive for: Normal Inspection Lower Extremity: Positive for: Edema - Medications Active Medications: Active Medications Generic Name Dose Route Start Last Admin Trade Name Freq PRN Reason Stop Dose Admin Enoxaparin Sodium 70 mg 11/05/16 19:10 11/06/16 10:52 Lovenox SC 70 mg DAILY [facility] Administration Piperacillin Sod/Tazobactam Sod 50 mls @ 100 mls/hr 11/04/16 16:45 11/06/16 17: 42 Zosyn 3.375 Gm Iv Premix IVPB 100 mls/hr Q6H [facility] Administration Vancomycin/Sodium Chloride 200 mls @ 133.333 mls/hr 11/04/16 17:00 11/06/16 17: 42 Vancocin IVPB 11/09/16 17:01 133.333 mls/hr Q12H [facility] Administration Sodium Chloride 1,000 mls @ 100 mls/hr 11/05/16 19:30 11/05/16 19:52 Sodium Chloride 0.9% IV 100 mls/hr .Q10H [facility] Administration Diltiazem HCl 125 mg/ Sodium 125 mls @ 5 mls/hr 11/05/16 22:00 11/05/16 22:26 Chloride IV 5 mls/hr .Q24H [facility] Administration Protocol 5 MG/HR Insulin Human Regular 0 unit 11/05/16 11:30 11/06/16 17:45 Novolin R SC 4 unit ACHS [facility] Administration Metoprolol Tartrate 5 mg 11/04/16 19:45 11/06/16 15:09 Lopressor IVP 5 mg Q6H [facility] Administration Nystatin 0 ea 11/04/16 18:00 11/06/16 17:43 Mycostatin Cream TOP 1 units TID [facility] Administration Pantoprazole Sodium 40 mg 11/04/16 16:45 11/06/16 09:50 Protonix Inj IVP 40 mg DAILY [facility] Administration - Patient Studies Lab Studies: Microbiology Studies 11/04/16 17:30 MRSA Culture (Admit) - Final Naris MRSA NOT DETECTED Lab Studies 11/06/16 11/06/16 11/06/16 Range/Units 16:09 12:35 12:24 WBC (4.8-10.8) K/uL RBC (3.80-5.20) Mil/uL Hgb (11.0-16.0) g/dL Hct (34.0-47.0) % MCV (81.0-99.0) fL MCH (27.0-31.0) pg MCHC (33.0-37.0) g/dL RDW (11.5-14.5) % Plt Count (130-400) K/uL MPV (7.2-11.7) fL Neut % (Auto) (50.0-75.0) % Lymph % (Auto) (20.0-40.0) % Runnels % (Auto) (0.0-10.0) % Eos % (Auto) (0.0-4.0) % Baso % (Auto) (0.0-2.0) % Neut # (1.8-7.0) K/uL Lymph # (1.0-4.3) K/uL Runnels # (0.0-0.8) K/uL Eos # (0.0-0.7) K/uL Baso # (0.0-0.2) K/uL Puncture Site Rra pCO2 55 H (35-45) mm/Hg pO2 102 H (80-100) mm/Hg HCO3 24.7 (21-28) mmol/L ABG pH 7.30 L (7.35-7.45) ABG Total CO2 28.8 H (22-28) mmol/L ABG O2 Saturation 99.0 H (95-98) % ABG Base Excess -0.3 (-2.0-3.0) mmol/L ABG Hemoglobin 13.6 (11.7-17.4) g/dL ABG Carboxyhemoglobin 2.1 H (0.5-1.5) % POC ABG HHb (Measured) 1.0 (0.0-5.0) % ABG Methemoglobin 0.9 (0.0-3.0) % Chaz Test Po A-a O2 Difference 114.0 mm/Hg Respiratory Index 1.1 Hgb O2 Saturation 96.0 (95.0-98.0) % FiO2 40.0 % Inspiratory BiPAP 18 Expiratory BiPAP 5 Sodium (132-148) mmol/L Potassium (3.6-5.2) mmol/L Chloride (98-107) mmol/L Carbon Dioxide (22-30) mmol/L Anion Gap (10-20) BUN (7-17) mg/dL Creatinine (0.7-1.2) MG/DL Est GFR ( Amer) Est GFR (Non-Af Amer) POC Glucose (mg/dL) 202 H 222 H (65-110) mg/dL Random Glucose (65-105) mg/dL Calcium (8.6-10.4) mg/dl Phosphorus (2.5-4.5) mg/dL Magnesium (1.6-2.3) mg/dL Total Bilirubin (0.2-1.3) mg/dL AST (14-36) U/L ALT (9-52) U/L Alkaline Phosphatase (38-126) U/L Total Protein (6.3-8.3) g/dL Albumin (3.5-5.0) g/dL Globulin (2.2-3.9) gm/dL Albumin/Globulin Ratio (1.0-2.1) 11/06/16 11/06/16 11/05/16 Range/Units 08:14 06:28 21:09 WBC 12.3 H (4.8-10.8) K/uL RBC 4.73 (3.80-5.20) Mil/uL Hgb 13.8 (11.0-16.0) g/dL Hct 43.1 (34.0-47.0) % MCV 91.0 D (81.0-99.0) fL MCH 29.1 (27.0-31.0) pg MCHC 32.0 L (33.0-37.0) g/dL RDW 14.7 H (11.5-14.5) % Plt Count 185 (130-400) K/uL MPV 8.9 (7.2-11.7) fL Neut % (Auto) 79.7 H (50.0-75.0) % Lymph % (Auto) 12.2 L (20.0-40.0) % Runnels % (Auto) 7.7 (0.0-10.0) % Eos % (Auto) 0.2 (0.0-4.0) % Baso % (Auto) 0.2 (0.0-2.0) % Neut # 9.8 H (1.8-7.0) K/uL Lymph # 1.5 (1.0-4.3) K/uL Runnels # 0.9 H (0.0-0.8) K/uL Eos # 0.0 (0.0-0.7) K/uL Baso # 0.0 (0.0-0.2) K/uL Puncture Site pCO2 (35-45) mm/Hg pO2 (80-100) mm/Hg HCO3 (21-28) mmol/L ABG pH (7.35-7.45) ABG Total CO2 (22-28) mmol/L ABG O2 Saturation (95-98) % ABG Base Excess (-2.0-3.0) mmol/L ABG Hemoglobin (11.7-17.4) g/dL ABG Carboxyhemoglobin (0.5-1.5) % POC ABG HHb (Measured) (0.0-5.0) % ABG Methemoglobin (0.0-3.0) % Chaz Test A-a O2 Difference mm/Hg Respiratory Index Hgb O2 Saturation (95.0-98.0) % FiO2 % Inspiratory BiPAP Expiratory BiPAP Sodium 141 (132-148) mmol/L Potassium 4.4 (3.6-5.2) mmol/L Chloride 102 (98-107) mmol/L Carbon Dioxide 29 (22-30) mmol/L Anion Gap 13 (10-20) BUN 56 H (7-17) mg/dL Creatinine 1.0 (0.7-1.2) MG/DL Est GFR ( Amer) > 60 Est GFR (Non-Af Amer) 56 POC Glucose (mg/dL) 228 H 256 H (65-110) mg/dL Random Glucose 191 H (65-105) mg/dL Calcium 8.6 (8.6-10.4) mg/dl Phosphorus 3.9 (2.5-4.5) mg/dL Magnesium 2.4 H (1.6-2.3) mg/dL Total Bilirubin 1.8 H (0.2-1.3) mg/dL AST 99 H (14-36) U/L ALT 119 H (9-52) U/L Alkaline Phosphatase 152 H D (38-126) U/L Total Protein 5.7 L (6.3-8.3) g/dL Albumin 2.7 L (3.5-5.0) g/dL Globulin 3.1 (2.2-3.9) gm/dL Albumin/Globulin Ratio 0.9 L (1.0-2.1) Laboratory Results - last 24 hr 11/05/16 11/06/16 11/06/16 21:09 06:28 08:14 WBC 12.3 H RBC 4.73 Hgb 13.8 Hct 43.1 MCV 91.0 D MCH 29.1 MCHC 32.0 L RDW 14.7 H Plt Count 185 MPV 8.9 Neut % (Auto) 79.7 H Lymph % (Auto) 12.2 L Runnels % (Auto) 7.7 Eos % (Auto) 0.2 Baso % (Auto) 0.2 Neut # 9.8 H Lymph # 1.5 Runnels # 0.9 H Eos # 0.0 Baso # 0.0 Puncture Site pCO2 pO2 HCO3 ABG pH ABG Total CO2 ABG O2 Saturation ABG Base Excess ABG Hemoglobin ABG Carboxyhemoglobin POC ABG HHb (Measured) ABG Methemoglobin Chaz Test A-a O2 Difference Respiratory Index Hgb O2 Saturation FiO2 Inspiratory BiPAP Expiratory BiPAP Sodium 141 Potassium 4.4 Chloride 102 Carbon Dioxide 29 Anion Gap 13 BUN 56 H Creatinine 1.0 Est GFR ( Amer) > 60 Est GFR (Non-Af Amer) 56 POC Glucose (mg/dL) 256 H 228 H Random Glucose 191 H Calcium 8.6 Phosphorus 3.9 Magnesium 2.4 H Total Bilirubin 1.8 H AST 99 H ALT 119 H Alkaline Phosphatase 152 H D Total Protein 5.7 L Albumin 2.7 L Globulin 3.1 Albumin/Globulin Ratio 0.9 L 11/06/16 11/06/16 11/06/16 12:24 12:35 16:09 WBC RBC Hgb Hct MCV MCH MCHC RDW Plt Count MPV Neut % (Auto) Lymph % (Auto) Runnels % (Auto) Eos % (Auto) Baso % (Auto) Neut # Lymph # Runnels # Eos # Baso # Puncture Site Rra pCO2 55 H pO2 102 H HCO3 24.7 ABG pH 7.30 L ABG Total CO2 28.8 H ABG O2 Saturation 99.0 H ABG Base Excess -0.3 ABG Hemoglobin 13.6 ABG Carboxyhemoglobin 2.1 H POC ABG HHb (Measured) 1.0 ABG Methemoglobin 0.9 Chaz Test Po A-a O2 Difference 114.0 Respiratory Index 1.1 Hgb O2 Saturation 96.0 FiO2 40.0 Inspiratory BiPAP 18 Expiratory BiPAP 5 Sodium Potassium Chloride Carbon Dioxide Anion Gap BUN Creatinine Est GFR ( Amer) Est GFR (Non-Af Amer) POC Glucose (mg/dL) 222 H 202 H Random Glucose Calcium Phosphorus Magnesium Total Bilirubin AST ALT Alkaline Phosphatase Total Protein Albumin Globulin Albumin/Globulin Ratio Fingerstick Blood Sugar Results: 202 Review of Systems - Review of Systems All systems: reviewed and no additional remarkable complaints except Critical Care Progress Note - Nutrition Nutrition: Nutrition Category Date Time Status Dysphagia/Modified Consistency Diet [DIET] Diets 11/06/16 Lunch Active Assessment/Plan (1) Respiratory failure with hypoxia Assessment and plan: 61 F with past medical history of diabetes, HTN, hyperthyroidism, depression, anxiety, and peripheral edema brought in by EMS in rapid A-fib and hyperglycemia. Patient was given 12.5 mg cardizem in the field. Patient had difficulties with thinking and reported occasional SOB. Patient was found to be in DKA, has a random glucose level of 1023. Neuro: Alert and oriented 3 Pulm: Acute hypercarbic respiratory failure now on BiPAP, patient is not weaning well. CV: A. fib rate controlled with Cardizem drip and Lopressor 5 IV every 6 Hem: No acute issues Renal: No acute issues Endo: DM type II on short acting insulin sliding scale GI: Nothing by mouth while on BiPAP, if patient is able to come off BiPAP for at least 2 hours can start on dysphagia diet ID: Severe sepsis from cellulitis, continue vancomycin and Zosyn DVT proph - Lovenox GI proph - Protonix campa for strict I/O's during acute illness Code status - full code Crtical Care Time spent 35 minutes Multi-disciplinary rounds were performed with house staff, nursing, speech therapy, respiratory therapy, pharmacy and nutrition with integrated input from the primary team/attending and other consulting services. The documented time is cumulative and includes review of patient data/exams/labs/chart review and examination of the patient on rounds and throughout the day; time is exclusive of any procedures or teaching time. Current Visit: Yes Status: Acute
[2016-11-06] MEDS: Sodium Chloride 0.9% 1,000 ML IV SCH (19:17)
[2016-11-06] MEDS ORDERED: Albumin Human 25% (12.5 gm/50 ml) IV ONE (23:14)
--- NOTE | 2016-11-06 23:47 | CARD ---
APPROVED REPORT EKG Measurement Heart [id number] <Conclusion> Atrial fibrillation with rapid ventricular response with premature ventricular or aberrantly conducted complexes Rightward axis Abnormal QRS-T angle, consider primary T wave abnormality Abnormal ECG
--- NOTE | 2016-11-07 00:08 | CT ---
EXAM: CT Head Without Intravenous Contrast. CLINICAL HISTORY: 61 years old, female; Pain; Headache; Headache not specified; Additional info: Sepsis, lethargy, hypoxia, transaminitis. Exam contains motion due to patients state TECHNIQUE: Axial computed tomography images of the head/brain without intravenous contrast. This CT exam was performed using one or more of the following dose reduction techniques: automated exposure control, adjustment of the mA and/or kV according to patient size, and/or use of iterative reconstruction technique. EXAM DATE/TIME: Exam ordered 11/06/2016 10:06 PM COMPARISON: No relevant prior studies available. FINDINGS: Brain: Intracranial hemorrhage. There is extensive periventricular hypoattenuation which could reflect chronic small vessel ischemic changes, clinical correlation. There is question of mildly asymmetric hypoattenuation in the left frontal region for example series 3 it series 4 image 39. Clinical correlation. Ventricles are concordant with sulci. Ventricles: See above. Bones/joints: No fractures. Soft tissues: Unremarkable. Sinuses: Paranasal sinuses appear clear. Mastoid air cells: Mastoid air cells appear clear. IMPRESSION: No fracture , no hemorrhage, and no sinusitis. Hypoattenuation in the left frontal region, this may be mildly asymmetric, clinical correlation. If there is clinical suspicion for stroke, please note that other modalities are considered to be more specific and more sensitive than noncontrast head CT.
[2016-11-07] MEDS: Metoprolol 1 mg/ml Inj IVP SCH ×5 (00:33→19:44)
--- NOTE | 2016-11-07 00:46 | CT ---
EXAM: CT Abdomen and Pelvis Without Intravenous Contrast. CLINICAL HISTORY: 61 years old, female; Pain; Abdominal pain; Generalized; Chest pain; Type not specified; Additional info: Sepsis, lethargy, hypoxia, transaminitis. Exam contains motion due to patients state TECHNIQUE: Axial computed tomography images of the abdomen and pelvis without intravenous contrast. This CT exam was performed using one or more of the following dose reduction techniques: automated exposure control, adjustment of the mA and/or kV according to patient size, and/or use of iterative reconstruction technique. Coronal and sagittal reformatted images were created and reviewed. COMPARISON: No relevant prior studies available. FINDINGS: Lower thorax: see chest ct. ABDOMEN: Liver: Liver is prominent, 20 cm. questionable finding of a focal lesion coronal image 70 in the right lobe, this may be approximately 2.4 cm, this is not a definite finding on this limited study. Gallbladder and bile ducts: Unremarkable. No calcified stones. No ductal dilation. Pancreas: Unremarkable. No ductal dilation. Spleen: Unremarkable. No splenomegaly. Adrenals: Surgical clip versus calcification associated with the left adrenal gland. Diffuse prominence of the left adrenal gland with a discrete nodule not appreciated on this limited study. Severe diffuse prominence of the right adrenal gland. Noting extensive bilateral adrenal abnormalities in this clinical context advise laboratory correlation to exclude adrenal insufficiency. Kidneys and ureters: Bilateral perinephric stranding, correlate for infection. There is a 4 cm essentially hypoattenuating mass in the interpolar region of the right kidney as best seen coronal series 604 image 79, this finding is suspicious for neoplasm of renal origin. There is a finding isointense to kidney at the posterior aspect of the left kidney series 9 image 70, this 16 mm finding is not fully characterized. Stomach and bowel: There are no abdominal wall hernias containing bowel. Very limited evaluation of the bowel with no evidence to suggests obstruction. High attenuation which appears to represent oral contrast noted in the fecal material in the rectum. No mucosal thickening on both areas where the wall can be evaluated.. Appendix: No findings to suggest acute appendicitis. PELVIS: Bladder: Bladder collapsed around a Hemphill catheter. Reproductive: The left ovary as seen coronal series 604 image 68 may be mildly prominent for age, with details of ovarian anatomy not well seen on this noncontrast CT. ABDOMEN and PELVIS: Intraperitoneal space: No free intraperitoneal air. There is presacral ascites, with otherwise relatively little pathologic ascites noted. Bones/joints: Bony structures with no acute fractures, sclerotic finding left wing of the sacrum series 5 image 99 for which clinical correlation is suggested, statistically this is possibly a bone island. Severe degenerative spine changes. No dislocation. Soft tissues: There is extensive body wall edema in keeping with anasarca. There is a small amount of air in the subcutaneous tissues of the anterior abdomen on the left series 9 image 138, please correlate whether there may have been injection. There is no other evidence to suggest any acute abdominal process. Vasculature: Atherosclerotic changes with no evidence of abdominal aortic aneurysm. Lymph nodes: Lymph nodes in the abdomen and pelvis are of note for suspicion of paraesophageal nodes noted limitations of this study, pathologically enlarged left common iliac node series 5 image 94 is favored, prominent right common iliac node series 5 image 97 and may not meet size criteria for pathologic enlargement. Portacaval node series 5 image 68 may be upper limit of normal. Other findings: There is right greater than left induration about the superficial upper thigh and correlation for cellulitis or other pathology of the right lower extremity suggested. He there is fluid tracking in the show planes of the left thigh as seen series 9 image 198 and correlation for infection including possibilities of fasciitis/myositis is advised. IMPRESSION: Very limited evaluation for free air noting extensive artifacts with free air not favored . Changes of anasarca. Bilateral markedly abnormal adrenal glands, laboratory correlation for acute adrenal insufficiency advised. Renal lesion, 4 cm, solid, suspicious for malignancy. Correlation for possibilities of infectious processes in the lower extremities is advised noting findings in the upper thighs . Please refer to chest CT. Favored that the anasarca and presacral ascites are related to heart failure. The absence of intravenous contrast greatly limits evaluation of the parenchymal organs. The absence of oral contrast limits evaluation of the gastrointestinal tract. Motion is an additional source of limitations. EXAM: CT Chest Without Intravenous Contrast. CLINICAL HISTORY: 61 years old, female; Pain; Abdominal pain; Generalized; Chest pain; Type not specified; Additional info: Sepsis, lethargy, hypoxia, transaminitis. Exam contains motion due to patients state TECHNIQUE: Axial computed tomography images of the chest without intravenous contrast. This CT exam was performed using one or more of the following dose reduction techniques: automated exposure control, adjustment of the mA and/or kV according to patient size, and/or use of iterative reconstruction technique. Coronal and sagittal reformatted images were created and reviewed. EXAM DATE/TIME: Exam ordered 11/06/2016 10:06 PM COMPARISON: No relevant prior studies available. FINDINGS: Lungs: Lungs. Probable tree in bud findings in the lingula, it suggestive of infection. Atelectatic changes bilaterally associated with the pleural effusions. Left lung base, series 5 image 49, very limited evaluation cannot exclude a small mass or consolidation in that area. Pleural space: No pneumothorax. Pleural effusions, bilateral, right moderate to large, left is relatively small. Heart: There is massive cardiomegaly. There is calcification as seen series 5 image 44 not clearly localized but possibly associated with a papillary muscle. Calcification series 5 image 36 in keeping with coronary artery disease. There is pericardial fluid most prominent in the superior recesses, see for example series 5 image 21, clinical correlation. Thyroid: The thyroid gland is greatly enlarged with multiple calcified nodules, see for example series 6 image 10, with a calcified hypoattenuating mixed nodule in the right lobe, series 6 image 11 there is partial calcification of a nodule in the left lobe. Further investigation if these findings have not been previously evaluated. Bones/joints: Degenerative spine changes. No acute fracture. No dislocation. Soft tissues: Anasarca. Vasculature: The thoracic aorta shows no evidence of aneurysm. This noncontrast study is limited in evaluation for dissection. Lymph nodes: Lymph nodes. Coarse calcification in the left aspect of the neck series 6 image 9 could represent a calcified node although other suggest vascular calcification not excluded. Mediastinal nodes are abnormally prominent, for example precarinal series 6 image 50 multiple pathologically enlarged nodes are seen, favor that there are multiple additional, pathologically enlarged right paratracheal node favored series 6 image 45, as well as a pathologically enlarged node in the left para-aortic region series 6 image 47,13 mm short axis. Other findings: Changes of anasarca. IMPRESSION: Bilateral pleural effusions. Additional lung findings, clinical correlation for infection, although favor that majority of the pulmonary abnormalities are related to pulmonary vascular overload. Correlation for fluid status and exclusion of an acute coronary syndrome recommended. Extensive adenopathy and further evaluation for neoplasm is advised. Thyroid lesions as above, laboratory correlation and clarification of pathology is recommended. The absence of intravenous contrast limits evaluation. Motion is an additional source of limitations.
[2016-11-07 01:24] LABS: THYROID STIMULATING HORMONE < 0.02 mIU/L (0.46-4.68)
[2016-11-07] MEDS: Piperacill/Tazo 3.375gm in Dex 50 ML IVPB SCH ×4 (05:00→23:28)
[2016-11-07 05:35] LABS: ABG ALLEN TEST POS; ABG MECHANICAL RATE 16; ARTERIAL BLOOD HGB O2 SAT 96.3 % (95.0-98.0); CARBOXYHEMOGLOBIN 2.2 % (0.5-1.5); DRAW SITE RR; HHB 0.4 % (0.0-5.0); METHEMOGLOBIN 1.1 % (0.0-3.0)
[2016-11-07 06:41] LABS: BASO % 0.1 % (0.0-2.0); EOS % 0.4 % (0.0-4.0); HEMATOCRIT 42.9 % (34.0-47.0); LYMPH # 0.8 K/uL (1.0-4.3); LYMPH % 7.5 % (20.0-40.0); MEAN CELL VOLUME 91.7 fL (81.0-99.0); MEAN CORPUSCULAR HEMOGLOBIN 29.4 pg (27.0-31.0); MONO # 0.7 K/uL (0.0-0.8); MONO % 6.6 % (0.0-10.0); PLATELET COUNT 180 K/uL (130-400); RED CELL DISTRIBUTION WIDTH 14.6 % (11.5-14.5); WHITE BLOOD COUNT 10.2 K/uL (4.8-10.8)
[2016-11-07 06:46] LABS: CHLORIDE 101 mmol/L (98-107)
[2016-11-07 06:47] LABS: POTASSIUM 3.5 mmol/L (3.6-5.2); SODIUM 146 mmol/L (132-148)
[2016-11-07 06:49] LABS: ALB/GLOB RATIO 1.2 (1.0-2.1); ALKALINE PHOSPHATASE 177 U/L (38-126); ALT/SGPT 122 U/L (9-52); AST/SGOT 82 U/L (14-36); BILIRUBIN,TOTAL 1.8 mg/dL (0.2-1.3); BLOOD UREA NITROGEN 51 mg/dL (7-17); CARBON DIOXIDE 32 mmol/L (22-30); GFR AFRICAN-AMERICAN > 60; GLUCOSE,RANDOM 158 mg/dL (65-105); TOTAL PROTEIN 5.8 g/dL (6.3-8.3)
[2016-11-07 06:50] LABS: CALCIUM 8.6 mg/dl (8.6-10.4); MAGNESIUM 2.1 mg/dL (1.6-2.3); PHOSPHOROUS 3.8 mg/dL (2.5-4.5)
--- NOTE | 2016-11-07 07:29 | CP.PCM.PN ---
Subjective - Date & Time of Evaluation Date of Evaluation: 11/07/16 Time of Evaluation: 01:00 - Subjective Subjective: Patient evaluated earlier, as continuously needing bipap due to resp acidosis, hypoxia, patient also found to be anasarca, has afib, prior labs showing hyperthyroidism. Exam vitals reviewed Chest clear Abd soft, nt Ext 3+ pitting and nonpitting edema all 4 ext [employer] arousable, but confused CVS irregular tachycardia Skin anasarca TSH, b12, ammonia levels ordered. CT head ordered for any subacute event Ct chest/abd/pelvis ordered for anasarca, transaminitis Objective findings/Assessment TSH very low suggesting hyperthyroid with afib, ? tachycardia induced cardiomypathy CT brain shows left frontal area hypoatneuation subacute infarct likely CT chest abd/pelvis show b/l pleural effusion contributing probably co2 retention, cmg probably cause of anasarca, transaminitis b/l lower leg redness with lymphoedematous changes likely dermatitis patient is empirically on abx Plan DC ivf Asa for subacute stroke Therapeutic lovenox for afib Lasix anasarca and chf Echo for chf Carotid doppler for subacute stroke Tapazole for hyperthyroidism, pt also on cardizem, lopressor See orders for detail, critical care time 45mins. Objective - Vital Signs/Intake and Output Vital Signs (last 24 hours): Temp Pulse Resp BP Pulse Ox 98.8 F 112 H 18 144/65 98 11/07/16 04:00 11/07/16 07:00 11/07/16 07:00 11/07/16 07:00 11/07/16 07:00 Intake and Output: 11/07/16 11/07/16 06:59 18:59 Intake Total 447.5 Output Total 1205 Balance -757.5 - Medications Medications: Current Medications Aspirin (Aspirin Chewable) 81 mg PO DAILY CRISTOBAL Enoxaparin Sodium (Lovenox) 110 mg SC Q12 [facility] Furosemide (Lasix) 40 mg IVP DAILY [facility] Piperacillin Sod/Tazobactam Sod (Zosyn 3.375 Gm Iv Premix) 50 mls @ 100 mls/hr IVPB Q6H [facility]RIST[facility] Last Admin: 11/07/16 05:00 Dose: 100 mls/hr Vancomycin/Sodium Chloride (Vancocin) 200 mls @ 133.333 mls/hr IVPB Q12H [facility]ST[facility] Stop: 11/09/16 17:01 Last Admin: 11/06/16 17:42 Dose: 133.333 mls/hr Diltiazem HCl 125 mg/ Sodium (Chloride) 125 mls @ 5 mls/hr IV .Q24H CRISTOBAL; 5 MG/ HR PRN Reason: Protocol Last Admin: 11/06/16 21:44 Dose: 5 mls/hr Insulin Human Regular (Novolin R) 0 unit SC ACHS [facility] Last Admin: 11/06/16 21:49 Dose: 2 unit Methimazole (Tapazole) 5 mg PO TID [facility] Metoprolol Tartrate (Lopressor) 5 mg IVP Q6H [facility] Last Admin: 11/07/16 02:22 Dose: Not Given Nystatin (Mycostatin Cream) 0 ea TOP TID [facility] Last Admin: 11/06/16 17:43 Dose: 1 units Pantoprazole Sodium (Protonix Inj) 40 mg IVP DAILY [facility] Last Admin: 11/06/16 09:50 Dose: 40 mg - Labs Labs: 11/07/16 06:21 11/07/16 06:21 PT 14.3 SECONDS (9.7-12.2) H 11/04/16 12:14 INR 1.3 11/04/16 12:14 APTT 21 SECONDS (21-34) 11/04/16 12:14
[2016-11-07] MEDS: Vancomycin 1 gm/NS 200 ml 200 ML IVPB SCH (07:38)
[2016-11-07] MEDS: (Novolin R) Insulin Human Regular 100 units/ml vial SC SCH ×4 (08:28→23:00)
--- NOTE | 2016-11-07 08:41 | CP.CCUPN ---
<Eloina Allen - Last Filed: 11/07/16 08:41> CCU Objective - Vital Signs / Intake & Output Vital Signs (Last 4 hours): Vital Signs Pulse Resp BP Pulse Ox 11/07/16 07:49 112 H 11/07/16 07:00 112 H 18 144/65 98 11/07/16 06:10 118 H 11/07/16 06:00 106 H 16 144/57 L 99 11/07/16 05:00 114 H 17 133/67 97 Intake and Output (Last 8hrs): Intake & Output 11/06/16 11/07/16 11/07/16 22:59 06:59 14:59 Intake Total 790 77.5 10 Output Total 220 1065 75 Balance 570 -987.5 -65 Weight 268 lb 9.6 oz Intake: Intake, IV Amount 790 77.5 10 Left Hand 40 40 10 Right Antecubital 700 37.5 Right Hand 50 Oral 0 Output: Urine 220 1065 75 Urethral ([place]) 220 1065 75 Other: # Bowel Movements 1 0 0 - Physical Exam Head: Positive for: Atraumatic, Normocephalic Pupils: Positive for: PERRL. Negative for: Sluggish, Non-Reactive Extroacular Muscles: Positive for: EOMI. Negative for: Gaze Palsy Conjunctiva: Positive for: Normal. Negative for: Injected, Icteric Neck: Positive for: Normal Range of Motion, Trachea Midline. Negative for: Meningeal Signs, MIDLINE TENDERNESS, Paraspinal Tenderness, JVD, Lymphadenopathy , Bruit, Other Respiratory/Chest: Positive for: Wheezes, Decreased Breath Sounds. Negative for : Rales Cardiovascular: Positive for: Irregular Rhythm, Peripheal Pulses Present, Tachycardic. Negative for: Murmurs, Normal S1, S2 Abdomen: Negative for: Tenderness, Distention Upper Extremity: Positive for: Normal Inspection Lower Extremity: Positive for: Edema - Medications Active Medications: Active Medications Generic Name Dose Route Start Last Admin Trade Name Freq PRN Reason Stop Dose Admin Aspirin 81 mg 11/07/16 10:00 Aspirin Chewable PO DAILY [facility] Enoxaparin Sodium 110 mg 11/07/16 10:00 Lovenox SC Q12 [facility] Furosemide 40 mg 11/07/16 10:00 Lasix IVP DAILY [facility] Piperacillin Sod/Tazobactam Sod 50 mls @ 100 mls/hr 11/04/16 16:45 11/07/16 05: 00 Zosyn 3.375 Gm Iv Premix IVPB 100 mls/hr Q6H [facility] Administration Vancomycin/Sodium Chloride 200 mls @ 133.333 mls/hr 11/04/16 17:00 11/07/16 07: 38 Vancocin IVPB 11/09/16 17:01 133.333 mls/hr Q12H [facility] Administration Diltiazem HCl 125 mg/ Sodium 125 mls @ 5 mls/hr 11/05/16 22:00 11/06/16 21:44 Chloride IV 5 mls/hr .Q24H [facility] Administration Protocol 5 MG/HR Insulin Human Regular 0 unit 11/05/16 11:30 11/07/16 08:28 Novolin R SC 2 unit ACHS [facility] Administration Methimazole 5 mg 11/07/16 10:00 Tapazole PO TID [facility] Metoprolol Tartrate 5 mg 11/04/16 19:45 11/07/16 08:23 Lopressor IVP 5 mg Q6H [facility] Administration Nystatin 0 ea 11/04/16 18:00 11/06/16 17:43 Mycostatin Cream TOP 1 units TID [facility] Administration Pantoprazole Sodium 40 mg 11/04/16 16:45 11/06/16 09:50 Protonix Inj IVP 40 mg DAILY [facility] Administration - Patient Studies Lab Studies: Lab Studies 11/07/16 11/07/16 11/07/16 Range/Units 06:21 05:11 00:19 WBC 10.2 (4.8-10.8) K/uL RBC 4.68 (3.80-5.20) Mil/uL Hgb 13.8 (11.0-16.0) g/dL Hct 42.9 (34.0-47.0) % MCV 91.7 (81.0-99.0) fL MCH 29.4 (27.0-31.0) pg MCHC 32.0 L (33.0-37.0) g/dL RDW 14.6 H (11.5-14.5) % Plt Count 180 (130-400) K/uL MPV 9.0 (7.2-11.7) fL Neut % (Auto) 85.4 H (50.0-75.0) % Lymph % (Auto) 7.5 L (20.0-40.0) % [place] % (Auto) 6.6 (0.0-10.0) % Eos % (Auto) 0.4 (0.0-4.0) % Baso % (Auto) 0.1 (0.0-2.0) % Neut # 8.7 H (1.8-7.0) K/uL Lymph # 0.8 L (1.0-4.3) K/uL [place] # 0.7 (0.0-0.8) K/uL Eos # 0.0 (0.0-0.7) K/uL Baso # 0.0 (0.0-0.2) K/uL Puncture Site Rr pCO2 60 H (35-45) mm/Hg pO2 142 H (80-100) mm/Hg HCO3 28.6 H (21-28) mmol/L ABG pH 7.34 L (7.35-7.45) ABG Total CO2 34.2 H (22-28) mmol/L ABG O2 Saturation 99.6 H (95-98) % ABG Base Excess 4.8 H (-2.0-3.0) mmol/L ABG Hemoglobin 13.9 (11.7-17.4) g/dL ABG Carboxyhemoglobin 2.2 H (0.5-1.5) % POC ABG HHb (Measured) 0.4 (0.0-5.0) % ABG Methemoglobin 1.1 (0.0-3.0) % Chaz Test Pos A-a O2 Difference 140.0 mm/Hg Respiratory Index 1.0 Hgb O2 Saturation 96.3 (95.0-98.0) % Mechanical Rate 16 FiO2 50.0 % Inspiratory BiPAP 18 Expiratory BiPAP 5 Sodium 146 (132-148) mmol/L Potassium 3.5 L (3.6-5.2) mmol/L Chloride 101 (98-107) mmol/L Carbon Dioxide 32 H (22-30) mmol/L Anion Gap 17 (10-20) BUN 51 H (7-17) mg/dL Creatinine 0.9 (0.7-1.2) MG/DL Est GFR ( Amer) > 60 Est GFR (Non-Af Amer) > 60 POC Glucose (mg/dL) (65-110) mg/dL Random Glucose 158 H (65-105) mg/dL Calcium 8.6 (8.6-10.4) mg/dl Phosphorus 3.8 (2.5-4.5) mg/dL Magnesium 2.1 (1.6-2.3) mg/dL Total Bilirubin 1.8 H (0.2-1.3) mg/dL AST 82 H (14-36) U/L ALT 122 H (9-52) U/L Alkaline Phosphatase 177 H (38-126) U/L Ammonia 33 (9-33) umol/L Total Protein 5.8 L (6.3-8.3) g/dL Albumin 3.2 L (3.5-5.0) g/dL Globulin 2.7 (2.2-3.9) gm/dL Albumin/Globulin Ratio 1.2 (1.0-2.1) Vitamin B12 > 1000 H (239-931) pg/mL Free T4 3.13 H (0.78-2.19) ng/dL TSH 3rd Generation < 0.02 L (0.46-4.68) mIU/L Vancomycin Trough 15.9 H (5.0-10.0) ug/mL 11/06/16 11/06/16 11/06/16 Range/Units 21:11 16:09 12:35 WBC (4.8-10.8) K/uL RBC (3.80-5.20) Mil/uL Hgb (11.0-16.0) g/dL Hct (34.0-47.0) % MCV (81.0-99.0) fL MCH (27.0-31.0) pg MCHC (33.0-37.0) g/dL RDW (11.5-14.5) % Plt Count (130-400) K/uL MPV (7.2-11.7) fL Neut % (Auto) (50.0-75.0) % Lymph % (Auto) (20.0-40.0) % [place] % (Auto) (0.0-10.0) % Eos % (Auto) (0.0-4.0) % Baso % (Auto) (0.0-2.0) % Neut # (1.8-7.0) K/uL Lymph # (1.0-4.3) K/uL [place] # (0.0-0.8) K/uL Eos # (0.0-0.7) K/uL Baso # (0.0-0.2) K/uL Puncture Site pCO2 (35-45) mm/Hg pO2 (80-100) mm/Hg HCO3 (21-28) mmol/L ABG pH (7.35-7.45) ABG Total CO2 (22-28) mmol/L ABG O2 Saturation (95-98) % ABG Base Excess (-2.0-3.0) mmol/L ABG Hemoglobin (11.7-17.4) g/dL ABG Carboxyhemoglobin (0.5-1.5) % POC ABG HHb (Measured) (0.0-5.0) % ABG Methemoglobin (0.0-3.0) % Chaz Test A-a O2 Difference mm/Hg Respiratory Index Hgb O2 Saturation (95.0-98.0) % Mechanical Rate FiO2 % Inspiratory BiPAP Expiratory BiPAP Sodium (132-148) mmol/L Potassium (3.6-5.2) mmol/L Chloride (98-107) mmol/L Carbon Dioxide (22-30) mmol/L Anion Gap (10-20) BUN (7-17) mg/dL Creatinine (0.7-1.2) MG/DL Est GFR ( Amer) Est GFR (Non-Af Amer) POC Glucose (mg/dL) 159 H 202 H 222 H (65-110) mg/dL Random Glucose (65-105) mg/dL Calcium (8.6-10.4) mg/dl Phosphorus (2.5-4.5) mg/dL Magnesium (1.6-2.3) mg/dL Total Bilirubin (0.2-1.3) mg/dL AST (14-36) U/L ALT (9-52) U/L Alkaline Phosphatase (38-126) U/L Ammonia (9-33) umol/L Total Protein (6.3-8.3) g/dL Albumin (3.5-5.0) g/dL Globulin (2.2-3.9) gm/dL Albumin/Globulin Ratio (1.0-2.1) Vitamin B12 (239-931) pg/mL Free T4 (0.78-2.19) ng/dL TSH 3rd Generation (0.46-4.68) mIU/L Vancomycin Trough (5.0-10.0) ug/mL 11/06/16 Range/Units 12:24 WBC (4.8-10.8) K/uL RBC (3.80-5.20) Mil/uL Hgb (11.0-16.0) g/dL Hct (34.0-47.0) % MCV (81.0-99.0) fL MCH (27.0-31.0) pg MCHC (33.0-37.0) g/dL RDW (11.5-14.5) % Plt Count (130-400) K/uL MPV (7.2-11.7) fL Neut % (Auto) (50.0-75.0) % Lymph % (Auto) (20.0-40.0) % [place] % (Auto) (0.0-10.0) % Eos % (Auto) (0.0-4.0) % Baso % (Auto) (0.0-2.0) % Neut # (1.8-7.0) K/uL Lymph # (1.0-4.3) K/uL [place] # (0.0-0.8) K/uL Eos # (0.0-0.7) K/uL Baso # (0.0-0.2) K/uL Puncture Site Rra pCO2 55 H (35-45) mm/Hg pO2 102 H (80-100) mm/Hg HCO3 24.7 (21-28) mmol/L ABG pH 7.30 L (7.35-7.45) ABG Total CO2 28.8 H (22-28) mmol/L ABG O2 Saturation 99.0 H (95-98) % ABG Base Excess -0.3 (-2.0-3.0) mmol/L ABG Hemoglobin 13.6 (11.7-17.4) g/dL ABG Carboxyhemoglobin 2.1 H (0.5-1.5) % POC ABG HHb (Measured) 1.0 (0.0-5.0) % ABG Methemoglobin 0.9 (0.0-3.0) % Chaz Test Po A-a O2 Difference 114.0 mm/Hg Respiratory Index 1.1 Hgb O2 Saturation 96.0 (95.0-98.0) % Mechanical Rate FiO2 40.0 % Inspiratory BiPAP 18 Expiratory BiPAP 5 Sodium (132-148) mmol/L Potassium (3.6-5.2) mmol/L Chloride (98-107) mmol/L Carbon Dioxide (22-30) mmol/L Anion Gap (10-20) BUN (7-17) mg/dL Creatinine (0.7-1.2) MG/DL Est GFR ( Amer) Est GFR (Non-Af Amer) POC Glucose (mg/dL) (65-110) mg/dL Random Glucose (65-105) mg/dL Calcium (8.6-10.4) mg/dl Phosphorus (2.5-4.5) mg/dL Magnesium (1.6-2.3) mg/dL Total Bilirubin (0.2-1.3) mg/dL AST (14-36) U/L ALT (9-52) U/L Alkaline Phosphatase (38-126) U/L Ammonia (9-33) umol/L Total Protein (6.3-8.3) g/dL Albumin (3.5-5.0) g/dL Globulin (2.2-3.9) gm/dL Albumin/Globulin Ratio (1.0-2.1) Vitamin B12 (239-931) pg/mL Free T4 (0.78-2.19) ng/dL TSH 3rd Generation (0.46-4.68) mIU/L Vancomycin Trough (5.0-10.0) ug/mL Laboratory Results - last 24 hr 11/06/16 11/06/16 11/06/16 12:24 12:35 16:09 WBC RBC Hgb Hct MCV MCH MCHC RDW Plt Count MPV Neut % (Auto) Lymph % (Auto) [place] % (Auto) Eos % (Auto) Baso % (Auto) Neut # Lymph # [place] # Eos # Baso # Puncture Site Rra pCO2 55 H pO2 102 H HCO3 24.7 ABG pH 7.30 L ABG Total CO2 28.8 H ABG O2 Saturation 99.0 H ABG Base Excess -0.3 ABG Hemoglobin 13.6 ABG Carboxyhemoglobin 2.1 H POC ABG HHb (Measured) 1.0 ABG Methemoglobin 0.9 Chaz Test Po A-a O2 Difference 114.0 Respiratory Index 1.1 Hgb O2 Saturation 96.0 Mechanical Rate FiO2 40.0 Inspiratory BiPAP 18 Expiratory BiPAP 5 Sodium Potassium Chloride Carbon Dioxide Anion Gap BUN Creatinine Est GFR ( Amer) Est GFR (Non-Af Amer) POC Glucose (mg/dL) 222 H 202 H Random Glucose Calcium Phosphorus Magnesium Total Bilirubin AST ALT Alkaline Phosphatase Ammonia Total Protein Albumin Globulin Albumin/Globulin Ratio Vitamin B12 Free T4 TSH 3rd Generation Vancomycin Trough 11/06/16 11/07/16 11/07/16 21:11 00:19 05:11 WBC RBC Hgb Hct MCV MCH MCHC RDW Plt Count MPV Neut % (Auto) Lymph % (Auto) [place] % (Auto) Eos % (Auto) Baso % (Auto) Neut # Lymph # [place] # Eos # Baso # Puncture Site Rr pCO2 60 H pO2 142 H HCO3 28.6 H ABG pH 7.34 L ABG Total CO2 34.2 H ABG O2 Saturation 99.6 H ABG Base Excess 4.8 H ABG Hemoglobin 13.9 ABG Carboxyhemoglobin 2.2 H POC ABG HHb (Measured) 0.4 ABG Methemoglobin 1.1 Chaz Test Pos A-a O2 Difference 140.0 Respiratory Index 1.0 Hgb O2 Saturation 96.3 Mechanical Rate 16 FiO2 50.0 Inspiratory BiPAP 18 Expiratory BiPAP 5 Sodium Potassium Chloride Carbon Dioxide Anion Gap BUN Creatinine Est GFR ( Amer) Est GFR (Non-Af Amer) POC Glucose (mg/dL) 159 H Random Glucose Calcium Phosphorus Magnesium Total Bilirubin AST ALT Alkaline Phosphatase Ammonia 33 Total Protein Albumin Globulin Albumin/Globulin Ratio Vitamin B12 > 1000 H Free T4 3.13 H TSH 3rd Generation < 0.02 L Vancomycin Trough 11/07/16 06:21 WBC 10.2 RBC 4.68 Hgb 13.8 Hct 42.9 MCV 91.7 MCH 29.4 MCHC 32.0 L RDW 14.6 H Plt Count 180 MPV 9.0 Neut % (Auto) 85.4 H Lymph % (Auto) 7.5 L [place] % (Auto) 6.6 Eos % (Auto) 0.4 Baso % (Auto) 0.1 Neut # 8.7 H Lymph # 0.8 L [place] # 0.7 Eos # 0.0 Baso # 0.0 Puncture Site pCO2 pO2 HCO3 ABG pH ABG Total CO2 ABG O2 Saturation ABG Base Excess ABG Hemoglobin ABG Carboxyhemoglobin POC ABG HHb (Measured) ABG Methemoglobin Chaz Test A-a O2 Difference Respiratory Index Hgb O2 Saturation Mechanical Rate FiO2 Inspiratory BiPAP Expiratory BiPAP Sodium 146 Potassium 3.5 L Chloride 101 Carbon Dioxide 32 H Anion Gap 17 BUN 51 H Creatinine 0.9 Est GFR ( Amer) > 60 Est GFR (Non-Af Amer) > 60 POC Glucose (mg/dL) Random Glucose 158 H Calcium 8.6 Phosphorus 3.8 Magnesium 2.1 Total Bilirubin 1.8 H AST 82 H ALT 122 H Alkaline Phosphatase 177 H Ammonia Total Protein 5.8 L Albumin 3.2 L Globulin 2.7 Albumin/Globulin Ratio 1.2 Vitamin B12 Free T4 TSH 3rd Generation Vancomycin Trough 15.9 H Fingerstick Blood Sugar Results: 184 Critical Care Progress Note - Nutrition Nutrition: Nutrition Category Date Time Status Dysphagia/Modified Consistency Diet [DIET] Diets 11/06/16 Lunch Active <Darlene Baum - Last Filed: 11/07/16 16:04> CCU Subjective - Physician Review Events Since Last Encounter (Free Text): 11/07/16 16:04 61-year-old female with history of hypertension hyperthyroidism, anxiety depression peripheral edema. Patient was hospitalized with the altered mental status, and she was brought into the ICU. Patient also had episode of respiratory distress, placed on BiPAP. Currently in the intensive care unit. On BiPAP. Lastly the patient was treated for atrial fibrillation. On also congestive heart failure. Lasix was given. Responding to fluids. Overall condition is stable at this time,a history of hypertension hyperactive thyroidism depression anxiety peripheral edema. History of atrial fibrillation recently. Respiratory disturbance stable. Currently on antibiotic IV fluid. Lasix. We'll continue to monitor the respiratory status, BiPAP. Overall prognosis is guarded. CCU Objective - Vital Signs / Intake & Output Vital Signs (Last 4 hours): Vital Signs Pulse Resp BP Pulse Ox 11/07/16 15:48 123 H 11/07/16 14:00 106 H 18 131/59 L 98 11/07/16 13:12 100 H 11/07/16 13:00 100 H 19 127/63 97 Intake and Output (Last 8hrs): Intake & Output 11/07/16 11/07/16 11/07/16 06:59 14:59 22:59 Intake Total 77.5 295 Output Total 1065 75 Balance -987.5 220 Weight 268 lb 9.6 oz Intake: Intake, IV Amount 77.5 295 Left Hand 40 45 Right Antecubital 37.5 250 Oral 0 Output: Urine 1065 75 Urethral ([place]) 1065 75 Other: # Bowel Movements 0 0 - Medications Active Medications: Active Medications Generic Name Dose Route Start Last Admin Trade Name Freq PRN Reason Stop Dose Admin Aspirin 81 mg 11/07/16 10:00 11/07/16 09:13 Aspirin Chewable PO Not Given DAILY [facility] Enoxaparin Sodium 110 mg 11/07/16 10:00 11/07/16 09:19 Lovenox SC 110 mg Q12 [facility] Administration Furosemide 40 mg 11/07/16 10:00 11/07/16 09:13 Lasix IVP 40 mg DAILY [facility] Administration Piperacillin Sod/Tazobactam Sod 50 mls @ 100 mls/hr 11/04/16 16:45 11/07/16 11: 00 Zosyn 3.375 Gm Iv Premix IVPB 100 mls/hr Q6H [facility] Administration Diltiazem HCl 125 mg/ Sodium 125 mls @ 5 mls/hr 11/05/16 22:00 11/06/16 21:44 Chloride IV 5 mls/hr .Q24H [facility] Administration Protocol 5 MG/HR Insulin Human Regular 0 unit 11/05/16 11:30 11/07/16 12:10 Novolin R SC 2 unit ACHS [facility] Administration Methimazole 5 mg 11/07/16 10:00 11/07/16 13:57 Tapazole PO Not Given TID [facility] Metoprolol Tartrate 5 mg 11/04/16 19:45 11/07/16 13:56 Lopressor IVP 5 mg Q6H [facility] Administration Nystatin 0 ea 11/04/16 18:00 11/07/16 13:56 Mycostatin Cream TOP 1 units TID [facility] Administration Pantoprazole Sodium 40 mg 11/04/16 16:45 11/07/16 09:12 Protonix Inj IVP 40 mg DAILY [facility] Administration - Patient Studies Lab Studies: Lab Studies 11/07/16 11/07/16 11/07/16 Range/Units 12:05 08:28 06:21 WBC 10.2 (4.8-10.8) K/uL RBC 4.68 (3.80-5.20) Mil/uL Hgb 13.8 (11.0-16.0) g/dL Hct 42.9 (34.0-47.0) % MCV 91.7 (81.0-99.0) fL MCH 29.4 (27.0-31.0) pg MCHC 32.0 L (33.0-37.0) g/dL RDW 14.6 H (11.5-14.5) % Plt Count 180 (130-400) K/uL MPV 9.0 (7.2-11.7) fL Neut % (Auto) 85.4 H (50.0-75.0) % Lymph % (Auto) 7.5 L (20.0-40.0) % [place] % (Auto) 6.6 (0.0-10.0) % Eos % (Auto) 0.4 (0.0-4.0) % Baso % (Auto) 0.1 (0.0-2.0) % Neut # 8.7 H (1.8-7.0) K/uL Lymph # 0.8 L (1.0-4.3) K/uL [place] # 0.7 (0.0-0.8) K/uL Eos # 0.0 (0.0-0.7) K/uL Baso # 0.0 (0.0-0.2) K/uL Neutrophils % (Manual) 84 H (50-75) % Lymphocytes % (Manual) 8 L (20-40) % Reactive Lymphs % 2 H (0-0) % Monocytes % (Manual) 6 (0-10) % Platelet Estimate Normal (NORMAL) RBC Morphology Normal Puncture Site pCO2 (35-45) mm/Hg pO2 (80-100) mm/Hg HCO3 (21-28) mmol/L ABG pH (7.35-7.45) ABG Total CO2 (22-28) mmol/L ABG O2 Saturation (95-98) % ABG Base Excess (-2.0-3.0) mmol/L ABG Hemoglobin (11.7-17.4) g/dL ABG Carboxyhemoglobin (0.5-1.5) % POC ABG HHb (Measured) (0.0-5.0) % ABG Methemoglobin (0.0-3.0) % Chaz Test A-a O2 Difference mm/Hg Respiratory Index Hgb O2 Saturation (95.0-98.0) % Mechanical Rate FiO2 % Inspiratory BiPAP Expiratory BiPAP Sodium 146 (132-148) mmol/L Potassium 3.5 L (3.6-5.2) mmol/L Chloride 101 (98-107) mmol/L Carbon Dioxide 32 H (22-30) mmol/L Anion Gap 17 (10-20) BUN 51 H (7-17) mg/dL Creatinine 0.9 (0.7-1.2) MG/DL Est GFR ( Amer) > 60 Est GFR (Non-Af Amer) > 60 POC Glucose (mg/dL) 191 H 184 H (65-110) mg/dL Random Glucose 158 H (65-105) mg/dL Calcium 8.6 (8.6-10.4) mg/dl Phosphorus 3.8 (2.5-4.5) mg/dL Magnesium 2.1 (1.6-2.3) mg/dL Total Bilirubin 1.8 H (0.2-1.3) mg/dL AST 82 H (14-36) U/L ALT 122 H (9-52) U/L Alkaline Phosphatase 177 H (38-126) U/L Ammonia (9-33) umol/L Total Protein 5.8 L (6.3-8.3) g/dL Albumin 3.2 L (3.5-5.0) g/dL Globulin 2.7 (2.2-3.9) gm/dL Albumin/Globulin Ratio 1.2 (1.0-2.1) Vitamin B12 (239-931) pg/mL Free T4 (0.78-2.19) ng/dL TSH 3rd Generation (0.46-4.68) mIU/L Vancomycin Trough 15.9 H (5.0-10.0) ug/mL 11/07/16 11/07/16 11/06/16 Range/Units 05:11 00:19 21:11 WBC (4.8-10.8) K/uL RBC (3.80-5.20) Mil/uL Hgb (11.0-16.0) g/dL Hct (34.0-47.0) % MCV (81.0-99.0) fL MCH (27.0-31.0) pg MCHC (33.0-37.0) g/dL RDW (11.5-14.5) % Plt Count (130-400) K/uL MPV (7.2-11.7) fL Neut % (Auto) (50.0-75.0) % Lymph % (Auto) (20.0-40.0) % [place] % (Auto) (0.0-10.0) % Eos % (Auto) (0.0-4.0) % Baso % (Auto) (0.0-2.0) % Neut # (1.8-7.0) K/uL Lymph # (1.0-4.3) K/uL [place] # (0.0-0.8) K/uL Eos # (0.0-0.7) K/uL Baso # (0.0-0.2) K/uL Neutrophils % (Manual) (50-75) % Lymphocytes % (Manual) (20-40) % Reactive Lymphs % (0-0) % Monocytes % (Manual) (0-10) % Platelet Estimate (NORMAL) RBC Morphology Puncture Site Rr pCO2 60 H (35-45) mm/Hg pO2 142 H (80-100) mm/Hg HCO3 28.6 H (21-28) mmol/L ABG pH 7.34 L (7.35-7.45) ABG Total CO2 34.2 H (22-28) mmol/L ABG O2 Saturation 99.6 H (95-98) % ABG Base Excess 4.8 H (-2.0-3.0) mmol/L ABG Hemoglobin 13.9 (11.7-17.4) g/dL ABG Carboxyhemoglobin 2.2 H (0.5-1.5) % POC ABG HHb (Measured) 0.4 (0.0-5.0) % ABG Methemoglobin 1.1 (0.0-3.0) % Chaz Test Pos A-a O2 Difference 140.0 mm/Hg Respiratory Index 1.0 Hgb O2 Saturation 96.3 (95.0-98.0) % Mechanical Rate 16 FiO2 50.0 % Inspiratory BiPAP 18 Expiratory BiPAP 5 Sodium (132-148) mmol/L Potassium (3.6-5.2) mmol/L Chloride (98-107) mmol/L Carbon Dioxide (22-30) mmol/L Anion Gap (10-20) BUN (7-17) mg/dL Creatinine (0.7-1.2) MG/DL Est GFR ( Amer) Est GFR (Non-Af Amer) POC Glucose (mg/dL) 159 H (65-110) mg/dL Random Glucose (65-105) mg/dL Calcium (8.6-10.4) mg/dl Phosphorus (2.5-4.5) mg/dL Magnesium (1.6-2.3) mg/dL Total Bilirubin (0.2-1.3) mg/dL AST (14-36) U/L ALT (9-52) U/L Alkaline Phosphatase (38-126) U/L Ammonia 33 (9-33) umol/L Total Protein (6.3-8.3) g/dL Albumin (3.5-5.0) g/dL Globulin (2.2-3.9) gm/dL Albumin/Globulin Ratio (1.0-2.1) Vitamin B12 > 1000 H (239-931) pg/mL Free T4 3.13 H (0.78-2.19) ng/dL TSH 3rd Generation < 0.02 L (0.46-4.68) mIU/L Vancomycin Trough (5.0-10.0) ug/mL 11/06/16 Range/Units 16:09 WBC (4.8-10.8) K/uL RBC (3.80-5.20) Mil/uL Hgb (11.0-16.0) g/dL Hct (34.0-47.0) % MCV (81.0-99.0) fL MCH (27.0-31.0) pg MCHC (33.0-37.0) g/dL RDW (11.5-14.5) % Plt Count (130-400) K/uL MPV (7.2-11.7) fL Neut % (Auto) (50.0-75.0) % Lymph % (Auto) (20.0-40.0) % [place] % (Auto) (0.0-10.0) % Eos % (Auto) (0.0-4.0) % Baso % (Auto) (0.0-2.0) % Neut # (1.8-7.0) K/uL Lymph # (1.0-4.3) K/uL [place] # (0.0-0.8) K/uL Eos # (0.0-0.7) K/uL Baso # (0.0-0.2) K/uL Neutrophils % (Manual) (50-75) % Lymphocytes % (Manual) (20-40) % Reactive Lymphs % (0-0) % Monocytes % (Manual) (0-10) % Platelet Estimate (NORMAL) RBC Morphology Puncture Site pCO2 (35-45) mm/Hg pO2 (80-100) mm/Hg HCO3 (21-28) mmol/L ABG pH (7.35-7.45) ABG Total CO2 (22-28) mmol/L ABG O2 Saturation (95-98) % ABG Base Excess (-2.0-3.0) mmol/L ABG Hemoglobin (11.7-17.4) g/dL ABG Carboxyhemoglobin (0.5-1.5) % POC ABG HHb (Measured) (0.0-5.0) % ABG Methemoglobin (0.0-3.0) % Chaz Test A-a O2 Difference mm/Hg Respiratory Index Hgb O2 Saturation (95.0-98.0) % Mechanical Rate FiO2 % Inspiratory BiPAP Expiratory BiPAP Sodium (132-148) mmol/L Potassium (3.6-5.2) mmol/L Chloride (98-107) mmol/L Carbon Dioxide (22-30) mmol/L Anion Gap (10-20) BUN (7-17) mg/dL Creatinine (0.7-1.2) MG/DL Est GFR ( Amer) Est GFR (Non-Af Amer) POC Glucose (mg/dL) 202 H (65-110) mg/dL Random Glucose (65-105) mg/dL Calcium (8.6-10.4) mg/dl Phosphorus (2.5-4.5) mg/dL Magnesium (1.6-2.3) mg/dL Total Bilirubin (0.2-1.3) mg/dL AST (14-36) U/L ALT (9-52) U/L Alkaline Phosphatase (38-126) U/L Ammonia (9-33) umol/L Total Protein (6.3-8.3) g/dL Albumin (3.5-5.0) g/dL Globulin (2.2-3.9) gm/dL Albumin/Globulin Ratio (1.0-2.1) Vitamin B12 (239-931) pg/mL Free T4 (0.78-2.19) ng/dL TSH 3rd Generation (0.46-4.68) mIU/L Vancomycin Trough (5.0-10.0) ug/mL Laboratory Results - last 24 hr 11/06/16 11/06/16 11/07/16 16:09 21:11 00:19 WBC RBC Hgb Hct MCV MCH MCHC RDW Plt Count MPV Neut % (Auto) Lymph % (Auto) [place] % (Auto) Eos % (Auto) Baso % (Auto) Neut # Lymph # [place] # Eos # Baso # Neutrophils % (Manual) Lymphocytes % (Manual) Reactive Lymphs % Monocytes % (Manual) Platelet Estimate RBC Morphology Puncture Site pCO2 pO2 HCO3 ABG pH ABG Total CO2 ABG O2 Saturation ABG Base Excess ABG Hemoglobin ABG Carboxyhemoglobin POC ABG HHb (Measured) ABG Methemoglobin Chaz Test A-a O2 Difference Respiratory Index Hgb O2 Saturation Mechanical Rate FiO2 Inspiratory BiPAP Expiratory BiPAP Sodium Potassium Chloride Carbon Dioxide Anion Gap BUN Creatinine Est GFR ( Amer) Est GFR (Non-Af Amer) POC Glucose (mg/dL) 202 H 159 H Random Glucose Calcium Phosphorus Magnesium Total Bilirubin AST ALT Alkaline Phosphatase Ammonia 33 Total Protein Albumin Globulin Albumin/Globulin Ratio Vitamin B12 > 1000 H Free T4 3.13 H TSH 3rd Generation < 0.02 L Vancomycin Trough 11/07/16 11/07/16 11/07/16 05:11 06:21 08:28 WBC 10.2 RBC 4.68 Hgb 13.8 Hct 42.9 MCV 91.7 MCH 29.4 MCHC 32.0 L RDW 14.6 H Plt Count 180 MPV 9.0 Neut % (Auto) 85.4 H Lymph % (Auto) 7.5 L [place] % (Auto) 6.6 Eos % (Auto) 0.4 Baso % (Auto) 0.1 Neut # 8.7 H Lymph # 0.8 L [place] # 0.7 Eos # 0.0 Baso # 0.0 Neutrophils % (Manual) 84 H Lymphocytes % (Manual) 8 L Reactive Lymphs % 2 H Monocytes % (Manual) 6 Platelet Estimate Normal RBC Morphology Normal Puncture Site Rr pCO2 60 H pO2 142 H HCO3 28.6 H ABG pH 7.34 L ABG Total CO2 34.2 H ABG O2 Saturation 99.6 H ABG Base Excess 4.8 H ABG Hemoglobin 13.9 ABG Carboxyhemoglobin 2.2 H POC ABG HHb (Measured) 0.4 ABG Methemoglobin 1.1 Chaz Test Pos A-a O2 Difference 140.0 Respiratory Index 1.0 Hgb O2 Saturation 96.3 Mechanical Rate 16 FiO2 50.0 Inspiratory BiPAP 18 Expiratory BiPAP 5 Sodium 146 Potassium 3.5 L Chloride 101 Carbon Dioxide 32 H Anion Gap 17 BUN 51 H Creatinine 0.9 Est GFR ( Amer) > 60 Est GFR (Non-Af Amer) > 60 POC Glucose (mg/dL) 184 H Random Glucose 158 H Calcium 8.6 Phosphorus 3.8 Magnesium 2.1 Total Bilirubin 1.8 H AST 82 H ALT 122 H Alkaline Phosphatase 177 H Ammonia Total Protein 5.8 L Albumin 3.2 L Globulin 2.7 Albumin/Globulin Ratio 1.2 Vitamin B12 Free T4 TSH 3rd Generation Vancomycin Trough 15.9 H 11/07/16 12:05 WBC RBC Hgb Hct MCV MCH MCHC RDW Plt Count MPV Neut % (Auto) Lymph % (Auto) [place] % (Auto) Eos % (Auto) Baso % (Auto) Neut # Lymph # [place] # Eos # Baso # Neutrophils % (Manual) Lymphocytes % (Manual) Reactive Lymphs % Monocytes % (Manual) Platelet Estimate RBC Morphology Puncture Site pCO2 pO2 HCO3 ABG pH ABG Total CO2 ABG O2 Saturation ABG Base Excess ABG Hemoglobin ABG Carboxyhemoglobin POC ABG HHb (Measured) ABG Methemoglobin Chaz Test A-a O2 Difference Respiratory Index Hgb O2 Saturation Mechanical Rate FiO2 Inspiratory BiPAP Expiratory BiPAP Sodium Potassium Chloride Carbon Dioxide Anion Gap BUN Creatinine Est GFR ( Amer) Est GFR (Non-Af Amer) POC Glucose (mg/dL) 191 H Random Glucose Calcium Phosphorus Magnesium Total Bilirubin AST ALT Alkaline Phosphatase Ammonia Total Protein Albumin Globulin Albumin/Globulin Ratio Vitamin B12 Free T4 TSH 3rd Generation Vancomycin Trough Critical Care Progress Note - Nutrition Nutrition: Nutrition Category Date Time Status Dysphagia/Modified Consistency Diet [DIET] Diets 11/06/16 Lunch Active
[2016-11-07] MEDS ORDERED: Potassium Chloride 20 mEq 100 ML IVPB SCH (09:00)
[2016-11-07] MEDS: Potassium Chloride 10 mEq 100 ML IVPB SCH ×2 (09:12→12:06)
[2016-11-07] MEDS: Enoxaparin 120 mg Syringe SC SCH ×2 (09:19→23:00)
[2016-11-07] MEDS ORDERED: methIMAzole 5 MG TAB PO SCH (10:00)
[2016-11-07] MEDS: methIMAzole 5 MG TAB PO SCH ×3 (10:00→17:03)
[2016-11-07] MEDS: Nystatin 100,000 Units/gm Cream(15 gm) TOP SCH ×3 (10:00→17:06)
[2016-11-07 10:24] LABS: NEUTROPHIL 84 % (50-75); REACTIVE LYMPHOCYTES 2 % (0-0); TOTAL CELLS COUNTED 100
--- NOTE | 2016-11-07 11:05 | RAD ---
HISTORY: aspiration COMPARISON: Comparison chest 11/04/2016 FINDINGS: LUNGS: Bilateral lower lobe opacities may represent atelectasis and or infiltrate. Suspect bilateral effusions. Central pulmonary vasculature is also slightly increased ; findings could represent mild chronic compensated pulmonary edema/CHF PLEURA: No significant pleural effusion identified, no pneumothorax apparent. CARDIOVASCULAR: Cardiomegaly. OSSEOUS STRUCTURES: No significant abnormalities. VISUALIZED UPPER ABDOMEN: Normal. OTHER FINDINGS: None. IMPRESSION: Bilateral lower lobe opacities may represent atelectasis and or infiltrate. . Suspect bilateral effusions. Central pulmonary vasculature is also slightly increased ; findings could represent mild chronic compensated pulmonary edema/CHF Cardiomegaly.
--- NOTE | 2016-11-07 15:14 | CP.CCUPN ---
CCU Subjective - Physician Review Events Since Last Encounter (Free Text): 11/07/16 15:12 Patient is a 61 year old female who was brought to [facility] by EMS, where she was found to be in Rapid AFib. Patient was admitted and has since been given Cardizem drip. Additionally, patient required BiPAP for continuing shortness of breath. Patient seen and examined in ICU Patient continues to have difficulty conversing. Patient continues to require BiPAP for respiratory distress On Cardizem drip at 10 mg/h for atrial fibrillation with rapid ventricular response off insulin drip Subjective (Free Text): 11/07/16 15:16 Patient continues to demonstrate pitting edema in all extremities. Patient is arousable when questions are directed to her, however cannot respond with words, and furthermore appears confused. CCU Objective - Vital Signs / Intake & Output Vital Signs (Last 4 hours): Vital Signs Temp Pulse Resp BP Pulse Ox 11/07/16 14:00 106 H 18 131/59 L 98 11/07/16 13:12 100 H 11/07/16 13:00 100 H 19 127/63 97 11/07/16 12:00 97.7 F 98 H 18 127/63 98 Intake and Output (Last 8hrs): Intake & Output 11/07/16 11/07/16 11/07/16 06:59 14:59 22:59 Intake Total 77.5 295 Output Total 1065 75 Balance -987.5 220 Weight 268 lb 9.6 oz Intake: Intake, IV Amount 77.5 295 Left Hand 40 45 Right Antecubital 37.5 250 Oral 0 Output: Urine 1065 75 Urethral ([place]) 1065 75 Other: # Bowel Movements 0 0 - Physical Exam Head: Positive for: Atraumatic, Normocephalic Pupils: Positive for: PERRL. Negative for: Sluggish, Non-Reactive Extroacular Muscles: Positive for: EOMI. Negative for: Gaze Palsy Conjunctiva: Positive for: Normal. Negative for: Injected, Icteric Neck: Positive for: Normal Range of Motion, Trachea Midline. Negative for: Meningeal Signs, MIDLINE TENDERNESS, Paraspinal Tenderness, JVD, Lymphadenopathy , Bruit, Other Respiratory/Chest: Positive for: Wheezes, Decreased Breath Sounds. Negative for : Rales Cardiovascular: Positive for: Irregular Rhythm, Peripheal Pulses Present, Tachycardic. Negative for: Murmurs, Normal S1, S2 Abdomen: Negative for: Tenderness, Distention Upper Extremity: Positive for: Normal Inspection Lower Extremity: Positive for: Edema Neurological: Negative for: Speech Normal Psychiatric: Negative for: Alert, Oriented x 3 - Medications Active Medications: Active Medications Generic Name Dose Route Start Last Admin Trade Name Freq PRN Reason Stop Dose Admin Aspirin 81 mg 11/07/16 10:00 11/07/16 09:13 Aspirin Chewable PO Not Given DAILY CRISTOBAL Enoxaparin Sodium 110 mg 11/07/16 10:00 11/07/16 09:19 Lovenox SC 110 mg Q12 CRISTOBAL Administration Furosemide 40 mg 11/07/16 10:00 11/07/16 09:13 Lasix IVP 40 mg DAILY CRISTOBAL Administration Piperacillin Sod/Tazobactam Sod 50 mls @ 100 mls/hr 11/04/16 16:45 11/07/16 11: 00 Zosyn 3.375 Gm Iv Premix IVPB 100 mls/hr Q6H C[facility]STOBAL Administration Diltiazem HCl 125 mg/ Sodium 125 mls @ 5 mls/hr 11/05/16 22:00 11/06/16 21:44 Chloride IV 5 mls/hr .Q24H CRISTOBAL Administration Protocol 5 MG/HR Insulin Human Regular 0 unit 11/05/16 11:30 11/07/16 12:10 Novolin R SC 2 unit ACHS CRISTOBAL Administration Methimazole 5 mg 11/07/16 10:00 11/07/16 13:57 Tapazole PO Not Given TID CRISTOBAL Metoprolol Tartrate 5 mg 11/04/16 19:45 11/07/16 13:56 Lopressor IVP 5 mg Q6H [facility]AL Administration Nystatin 0 ea 11/04/16 18:00 11/07/16 13:56 Mycostatin Cream TOP 1 units TID CRISTOBAL Administration Pantoprazole Sodium 40 mg 11/04/16 16:45 11/07/16 09:12 Protonix Inj IVP 40 mg DAILY CRISTOBAL Administration - Patient Studies Lab Studies: Lab Studies 11/07/16 11/07/16 11/07/16 Range/Units 12:05 08:28 06:21 WBC 10.2 (4.8-10.8) K/uL RBC 4.68 (3.80-5.20) Mil/uL Hgb 13.8 (11.0-16.0) g/dL Hct 42.9 (34.0-47.0) % MCV 91.7 (81.0-99.0) fL MCH 29.4 (27.0-31.0) pg MCHC 32.0 L (33.0-37.0) g/dL RDW 14.6 H (11.5-14.5) % Plt Count 180 (130-400) K/uL MPV 9.0 (7.2-11.7) fL Neut % (Auto) 85.4 H (50.0-75.0) % Lymph % (Auto) 7.5 L (20.0-40.0) % Mcleod % (Auto) 6.6 (0.0-10.0) % Eos % (Auto) 0.4 (0.0-4.0) % Baso % (Auto) 0.1 (0.0-2.0) % Neut # 8.7 H (1.8-7.0) K/uL Lymph # 0.8 L (1.0-4.3) K/uL Mcleod # 0.7 (0.0-0.8) K/uL Eos # 0.0 (0.0-0.7) K/uL Baso # 0.0 (0.0-0.2) K/uL Neutrophils % (Manual) 84 H (50-75) % Lymphocytes % (Manual) 8 L (20-40) % Reactive Lymphs % 2 H (0-0) % Monocytes % (Manual) 6 (0-10) % Platelet Estimate Normal (NORMAL) RBC Morphology Normal Puncture Site pCO2 (35-45) mm/Hg pO2 (80-100) mm/Hg HCO3 (21-28) mmol/L ABG pH (7.35-7.45) ABG Total CO2 (22-28) mmol/L ABG O2 Saturation (95-98) % ABG Base Excess (-2.0-3.0) mmol/L ABG Hemoglobin (11.7-17.4) g/dL ABG Carboxyhemoglobin (0.5-1.5) % POC ABG HHb (Measured) (0.0-5.0) % ABG Methemoglobin (0.0-3.0) % Chaz Test A-a O2 Difference mm/Hg Respiratory Index Hgb O2 Saturation (95.0-98.0) % Mechanical Rate FiO2 % Inspiratory BiPAP Expiratory BiPAP Sodium 146 (132-148) mmol/L Potassium 3.5 L (3.6-5.2) mmol/L Chloride 101 (98-107) mmol/L Carbon Dioxide 32 H (22-30) mmol/L Anion Gap 17 (10-20) BUN 51 H (7-17) mg/dL Creatinine 0.9 (0.7-1.2) MG/DL Est GFR ( Amer) > 60 Est GFR (Non-Af Amer) > 60 POC Glucose (mg/dL) 191 H 184 H (65-110) mg/dL Random Glucose 158 H (65-105) mg/dL Calcium 8.6 (8.6-10.4) mg/dl Phosphorus 3.8 (2.5-4.5) mg/dL Magnesium 2.1 (1.6-2.3) mg/dL Total Bilirubin 1.8 H (0.2-1.3) mg/dL AST 82 H (14-36) U/L ALT 122 H (9-52) U/L Alkaline Phosphatase 177 H (38-126) U/L Ammonia (9-33) umol/L Total Protein 5.8 L (6.3-8.3) g/dL Albumin 3.2 L (3.5-5.0) g/dL Globulin 2.7 (2.2-3.9) gm/dL Albumin/Globulin Ratio 1.2 (1.0-2.1) Vitamin B12 (239-931) pg/mL Free T4 (0.78-2.19) ng/dL TSH 3rd Generation (0.46-4.68) mIU/L Vancomycin Trough 15.9 H (5.0-10.0) ug/mL 11/07/16 11/07/16 11/06/16 Range/Units 05:11 00:19 21:11 WBC (4.8-10.8) K/uL RBC (3.80-5.20) Mil/uL Hgb (11.0-16.0) g/dL Hct (34.0-47.0) % MCV (81.0-99.0) fL MCH (27.0-31.0) pg MCHC (33.0-37.0) g/dL RDW (11.5-14.5) % Plt Count (130-400) K/uL MPV (7.2-11.7) fL Neut % (Auto) (50.0-75.0) % Lymph % (Auto) (20.0-40.0) % Mcleod % (Auto) (0.0-10.0) % Eos % (Auto) (0.0-4.0) % Baso % (Auto) (0.0-2.0) % Neut # (1.8-7.0) K/uL Lymph # (1.0-4.3) K/uL Mcleod # (0.0-0.8) K/uL Eos # (0.0-0.7) K/uL Baso # (0.0-0.2) K/uL Neutrophils % (Manual) (50-75) % Lymphocytes % (Manual) (20-40) % Reactive Lymphs % (0-0) % Monocytes % (Manual) (0-10) % Platelet Estimate (NORMAL) RBC Morphology Puncture Site Rr pCO2 60 H (35-45) mm/Hg pO2 142 H (80-100) mm/Hg HCO3 28.6 H (21-28) mmol/L ABG pH 7.34 L (7.35-7.45) ABG Total CO2 34.2 H (22-28) mmol/L ABG O2 Saturation 99.6 H (95-98) % ABG Base Excess 4.8 H (-2.0-3.0) mmol/L ABG Hemoglobin 13.9 (11.7-17.4) g/dL ABG Carboxyhemoglobin 2.2 H (0.5-1.5) % POC ABG HHb (Measured) 0.4 (0.0-5.0) % ABG Methemoglobin 1.1 (0.0-3.0) % Chaz Test Pos A-a O2 Difference 140.0 mm/Hg Respiratory Index 1.0 Hgb O2 Saturation 96.3 (95.0-98.0) % Mechanical Rate 16 FiO2 50.0 % Inspiratory BiPAP 18 Expiratory BiPAP 5 Sodium (132-148) mmol/L Potassium (3.6-5.2) mmol/L Chloride (98-107) mmol/L Carbon Dioxide (22-30) mmol/L Anion Gap (10-20) BUN (7-17) mg/dL Creatinine (0.7-1.2) MG/DL Est GFR ( Amer) Est GFR (Non-Af Amer) POC Glucose (mg/dL) 159 H (65-110) mg/dL Random Glucose (65-105) mg/dL Calcium (8.6-10.4) mg/dl Phosphorus (2.5-4.5) mg/dL Magnesium (1.6-2.3) mg/dL Total Bilirubin (0.2-1.3) mg/dL AST (14-36) U/L ALT (9-52) U/L Alkaline Phosphatase (38-126) U/L Ammonia 33 (9-33) umol/L Total Protein (6.3-8.3) g/dL Albumin (3.5-5.0) g/dL Globulin (2.2-3.9) gm/dL Albumin/Globulin Ratio (1.0-2.1) Vitamin B12 > 1000 H (239-931) pg/mL Free T4 3.13 H (0.78-2.19) ng/dL TSH 3rd Generation < 0.02 L (0.46-4.68) mIU/L Vancomycin Trough (5.0-10.0) ug/mL 11/06/16 Range/Units 16:09 WBC (4.8-10.8) K/uL RBC (3.80-5.20) Mil/uL Hgb (11.0-16.0) g/dL Hct (34.0-47.0) % MCV (81.0-99.0) fL MCH (27.0-31.0) pg MCHC (33.0-37.0) g/dL RDW (11.5-14.5) % Plt Count (130-400) K/uL MPV (7.2-11.7) fL Neut % (Auto) (50.0-75.0) % Lymph % (Auto) (20.0-40.0) % Mcleod % (Auto) (0.0-10.0) % Eos % (Auto) (0.0-4.0) % Baso % (Auto) (0.0-2.0) % Neut # (1.8-7.0) K/uL Lymph # (1.0-4.3) K/uL Mcleod # (0.0-0.8) K/uL Eos # (0.0-0.7) K/uL Baso # (0.0-0.2) K/uL Neutrophils % (Manual) (50-75) % Lymphocytes % (Manual) (20-40) % Reactive Lymphs % (0-0) % Monocytes % (Manual) (0-10) % Platelet Estimate (NORMAL) RBC Morphology Puncture Site pCO2 (35-45) mm/Hg pO2 (80-100) mm/Hg HCO3 (21-28) mmol/L ABG pH (7.35-7.45) ABG Total CO2 (22-28) mmol/L ABG O2 Saturation (95-98) % ABG Base Excess (-2.0-3.0) mmol/L ABG Hemoglobin (11.7-17.4) g/dL ABG Carboxyhemoglobin (0.5-1.5) % POC ABG HHb (Measured) (0.0-5.0) % ABG Methemoglobin (0.0-3.0) % Chaz Test A-a O2 Difference mm/Hg Respiratory Index Hgb O2 Saturation (95.0-98.0) % Mechanical Rate FiO2 % Inspiratory BiPAP Expiratory BiPAP Sodium (132-148) mmol/L Potassium (3.6-5.2) mmol/L Chloride (98-107) mmol/L Carbon Dioxide (22-30) mmol/L Anion Gap (10-20) BUN (7-17) mg/dL Creatinine (0.7-1.2) MG/DL Est GFR ( Amer) Est GFR (Non-Af Amer) POC Glucose (mg/dL) 202 H (65-110) mg/dL Random Glucose (65-105) mg/dL Calcium (8.6-10.4) mg/dl Phosphorus (2.5-4.5) mg/dL Magnesium (1.6-2.3) mg/dL Total Bilirubin (0.2-1.3) mg/dL AST (14-36) U/L ALT (9-52) U/L Alkaline Phosphatase (38-126) U/L Ammonia (9-33) umol/L Total Protein (6.3-8.3) g/dL Albumin (3.5-5.0) g/dL Globulin (2.2-3.9) gm/dL Albumin/Globulin Ratio (1.0-2.1) Vitamin B12 (239-931) pg/mL Free T4 (0.78-2.19) ng/dL TSH 3rd Generation (0.46-4.68) mIU/L Vancomycin Trough (5.0-10.0) ug/mL Laboratory Results - last 24 hr 11/06/16 11/06/16 11/07/16 16:09 21:11 00:19 WBC RBC Hgb Hct MCV MCH MCHC RDW Plt Count MPV Neut % (Auto) Lymph % (Auto) Mcleod % (Auto) Eos % (Auto) Baso % (Auto) Neut # Lymph # Mcleod # Eos # Baso # Neutrophils % (Manual) Lymphocytes % (Manual) Reactive Lymphs % Monocytes % (Manual) Platelet Estimate RBC Morphology Puncture Site pCO2 pO2 HCO3 ABG pH ABG Total CO2 ABG O2 Saturation ABG Base Excess ABG Hemoglobin ABG Carboxyhemoglobin POC ABG HHb (Measured) ABG Methemoglobin Chaz Test A-a O2 Difference Respiratory Index Hgb O2 Saturation Mechanical Rate FiO2 Inspiratory BiPAP Expiratory BiPAP Sodium Potassium Chloride Carbon Dioxide Anion Gap BUN Creatinine Est GFR ( Amer) Est GFR (Non-Af Amer) POC Glucose (mg/dL) 202 H 159 H Random Glucose Calcium Phosphorus Magnesium Total Bilirubin AST ALT Alkaline Phosphatase Ammonia 33 Total Protein Albumin Globulin Albumin/Globulin Ratio Vitamin B12 > 1000 H Free T4 3.13 H TSH 3rd Generation < 0.02 L Vancomycin Trough 11/07/16 11/07/16 11/07/16 05:11 06:21 08:28 WBC 10.2 RBC 4.68 Hgb 13.8 Hct 42.9 MCV 91.7 MCH 29.4 MCHC 32.0 L RDW 14.6 H Plt Count 180 MPV 9.0 Neut % (Auto) 85.4 H Lymph % (Auto) 7.5 L Mcleod % (Auto) 6.6 Eos % (Auto) 0.4 Baso % (Auto) 0.1 Neut # 8.7 H Lymph # 0.8 L Mcleod # 0.7 Eos # 0.0 Baso # 0.0 Neutrophils % (Manual) 84 H Lymphocytes % (Manual) 8 L Reactive Lymphs % 2 H Monocytes % (Manual) 6 Platelet Estimate Normal RBC Morphology Normal Puncture Site Rr pCO2 60 H pO2 142 H HCO3 28.6 H ABG pH 7.34 L ABG Total CO2 34.2 H ABG O2 Saturation 99.6 H ABG Base Excess 4.8 H ABG Hemoglobin 13.9 ABG Carboxyhemoglobin 2.2 H POC ABG HHb (Measured) 0.4 ABG Methemoglobin 1.1 Chaz Test Pos A-a O2 Difference 140.0 Respiratory Index 1.0 Hgb O2 Saturation 96.3 Mechanical Rate 16 FiO2 50.0 Inspiratory BiPAP 18 Expiratory BiPAP 5 Sodium 146 Potassium 3.5 L Chloride 101 Carbon Dioxide 32 H Anion Gap 17 BUN 51 H Creatinine 0.9 Est GFR ( Amer) > 60 Est GFR (Non-Af Amer) > 60 POC Glucose (mg/dL) 184 H Random Glucose 158 H Calcium 8.6 Phosphorus 3.8 Magnesium 2.1 Total Bilirubin 1.8 H AST 82 H ALT 122 H Alkaline Phosphatase 177 H Ammonia Total Protein 5.8 L Albumin 3.2 L Globulin 2.7 Albumin/Globulin Ratio 1.2 Vitamin B12 Free T4 TSH 3rd Generation Vancomycin Trough 15.9 H 11/07/16 12:05 WBC RBC Hgb Hct MCV MCH MCHC RDW Plt Count MPV Neut % (Auto) Lymph % (Auto) Mcleod % (Auto) Eos % (Auto) Baso % (Auto) Neut # Lymph # Mcleod # Eos # Baso # Neutrophils % (Manual) Lymphocytes % (Manual) Reactive Lymphs % Monocytes % (Manual) Platelet Estimate RBC Morphology Puncture Site pCO2 pO2 HCO3 ABG pH ABG Total CO2 ABG O2 Saturation ABG Base Excess ABG Hemoglobin ABG Carboxyhemoglobin POC ABG HHb (Measured) ABG Methemoglobin Chaz Test A-a O2 Difference Respiratory Index Hgb O2 Saturation Mechanical Rate FiO2 Inspiratory BiPAP Expiratory BiPAP Sodium Potassium Chloride Carbon Dioxide Anion Gap BUN Creatinine Est GFR ( Amer) Est GFR (Non-Af Amer) POC Glucose (mg/dL) 191 H Random Glucose Calcium Phosphorus Magnesium Total Bilirubin AST ALT Alkaline Phosphatase Ammonia Total Protein Albumin Globulin Albumin/Globulin Ratio Vitamin B12 Free T4 TSH 3rd Generation Vancomycin Trough Fingerstick Blood Sugar Results: 184 Review of Systems - Review of Systems Systems not reviewed;Unavailable: Altered Mental Status Critical Care Progress Note - Nutrition Nutrition: Nutrition Category Date Time Status Dysphagia/Modified Consistency Diet [DIET] Diets 11/06/16 Lunch Active Assessment/Plan (1) Atrial fibrillation with rapid ventricular response Current Visit: Yes Status: Acute Comment: taper off Cardizem drip Continue Lopressor and start Cardizem through NG tube Continue anticoagulation and aspirin Check echocardiogram (2) Bilateral lower leg cellulitis Current Visit: Yes Status: Acute Comment: Continue antibiotics and follow up culture and sensitivity (3) Hyperosmolar non-ketotic state in patient with type 2 diabetes mellitus Current Visit: Yes Status: Acute (4) Respiratory failure with hypoxia Current Visit: Yes Status: Acute
[2016-11-07 17:41] LABS: ABG ALLEN TEST POS; CARBOXYHEMOGLOBIN 2.2 % (0.5-1.5); DRAW SITE RRA; HHB 0.9 % (0.0-5.0); METHEMOGLOBIN 0.9 % (0.0-3.0)
--- NOTE | 2016-11-07 20:22 | CP.PCM.CON ---
History of Present Illness - History of Present Illness History of Present Illness: Elderly female with rapid atrial fibrillation and CHF, poor historian. Past Patient History - Tetanus Immunizations Tetanus Immunization: Unknown - Past Medical History & Family History Past Medical History?: Yes - Past Social History Smoking Status: Current Some Days Smoker - CARDIAC Hx Hypertension: Yes Hx Peripheral Edema: Yes - PULMONARY Hx Bronchitis: Yes - NEUROLOGICAL Hx Neurological Disorder: No - HEENT Hx HEENT Problems: No Other/Comment: WEARS READING GLASSES. - RENAL Hx Chronic Kidney Disease: No - ENDOCRINE/METABOLIC Hx Hyperthyroidism: Yes - HEMATOLOGICAL/ONCOLOGICAL Hx Blood Disorders: Yes Hx Blood Transfusions: Yes Hx Blood Transfusion Reaction: No - INTEGUMENTARY Hx Cellulitis: Yes - MUSCULOSKELETAL/RHEUMATOLOGICAL Hx Arthritis: Yes Hx Falls: Yes - GASTROINTESTINAL Hx Gastrointestinal Disorders: No - GENITOURINARY/GYNECOLOGICAL Hx Genitourinary Disorders: No - PSYCHIATRIC Hx Anxiety: Yes Hx Depression: Yes Hx Substance Use: No - SURGICAL HISTORY Hx Surgeries: Yes Other/Comment: TUMOR FROM OVARIES REMOVED - ANESTHESIA Hx Anesthesia: Yes Hx Anesthesia Reactions: No Hx Malignant Hyperthermia: No Meds Allergies/Adverse Reactions: Allergies Allergy/AdvReac Type Severity Reaction Status Date / Time No Known Allergies Allergy Verified 11/04/16 11:37 - Medications Medications: Current Medications Aspirin (Aspirin Chewable) 81 mg PO DAILY [facility] Last Admin: 11/07/16 09:13 Dose: Not Given Enoxaparin Sodium (Lovenox) 110 mg SC Q12 [facility] Last Admin: 11/07/16 09:19 Dose: 110 mg Furosemide (Lasix) 40 mg IVP DAILY [facility] Last Admin: 11/07/16 09:13 Dose: 40 mg Piperacillin Sod/Tazobactam Sod (Zosyn 3.375 Gm Iv Premix) 50 mls @ 100 mls/hr IVPB Q6H [facility] Last Admin: 11/07/16 17:02 Dose: 100 mls/hr Diltiazem HCl 125 mg/ Sodium (Chloride) 125 mls @ 5 mls/hr IV .Q24H CRISTOBAL; 5 MG/ HR PRN Reason: Protocol Last Admin: 11/06/16 21:44 Dose: 5 mls/hr Insulin Human Regular (Novolin R) 0 unit SC ACHS [facility] Last Admin: 11/07/16 17:08 Dose: 6 unit Methimazole (Tapazole) 5 mg PO TID [facility] Last Admin: 11/07/16 17:03 Dose: Not Given Metoprolol Tartrate (Lopressor) 5 mg IVP Q6H [facility] Last Admin: 11/07/16 19:44 Dose: 5 mg Nystatin (Mycostatin Cream) 0 ea TOP TID [facility] Last Admin: 11/07/16 17:06 Dose: 1 units Pantoprazole Sodium (Protonix Inj) 40 mg IVP DAILY [facility] Last Admin: 11/07/16 09:12 Dose: 40 mg Physical Exam - Head Exam Head Exam: NORMAL INSPECTION - Neck Exam Neck exam: Positive for: Normal Inspection - Respiratory Exam Respiratory Exam: Decreased Breath Sounds - Cardiovascular Exam Cardiovascular Exam: Irregular Rhythm - Extremities Exam Extremities exam: Positive for: pedal edema Results - Vital Signs Recent Vital Signs: Last Vital Signs Temp 98.1 F 11/07/16 16:00 Pulse 116 H 11/07/16 19:00 Resp 21 11/07/16 19:00 BP 127/56 L 11/07/16 19:00 Pulse Ox 97 11/07/16 19:00 - Labs Result Diagrams: 11/07/16 06:21 11/07/16 06:21 Labs: Laboratory Results - last 24 hr 11/06/16 11/07/16 11/07/16 21:11 00:19 05:11 WBC RBC Hgb Hct MCV MCH MCHC RDW Plt Count MPV Neut % (Auto) Lymph % (Auto) [place] % (Auto) Eos % (Auto) Baso % (Auto) Neut # Lymph # [place] # Eos # Baso # Neutrophils % (Manual) Lymphocytes % (Manual) Reactive Lymphs % Monocytes % (Manual) Platelet Estimate RBC Morphology Puncture Site Rr pCO2 60 H pO2 142 H HCO3 28.6 H ABG pH 7.34 L ABG Total CO2 34.2 H ABG O2 Saturation 99.6 H ABG Base Excess 4.8 H ABG Hemoglobin 13.9 ABG Carboxyhemoglobin 2.2 H POC ABG HHb (Measured) 0.4 ABG Methemoglobin 1.1 Chaz Test Pos A-a O2 Difference 140.0 Respiratory Index 1.0 Hgb O2 Saturation 96.3 Liter Flow Mechanical Rate 16 FiO2 50.0 Inspiratory BiPAP 18 Expiratory BiPAP 5 Sodium Potassium Chloride Carbon Dioxide Anion Gap BUN Creatinine Est GFR ( Amer) Est GFR (Non-Af Amer) POC Glucose (mg/dL) 159 H Random Glucose Calcium Phosphorus Magnesium Total Bilirubin AST ALT Alkaline Phosphatase Ammonia 33 Total Protein Albumin Globulin Albumin/Globulin Ratio Vitamin B12 > 1000 H Free T4 3.13 H TSH 3rd Generation < 0.02 L Vancomycin Trough 11/07/16 11/07/16 11/07/16 06:21 08:28 12:05 WBC 10.2 RBC 4.68 Hgb 13.8 Hct 42.9 MCV 91.7 MCH 29.4 MCHC 32.0 L RDW 14.6 H Plt Count 180 MPV 9.0 Neut % (Auto) 85.4 H Lymph % (Auto) 7.5 L [place] % (Auto) 6.6 Eos % (Auto) 0.4 Baso % (Auto) 0.1 Neut # 8.7 H Lymph # 0.8 L [place] # 0.7 Eos # 0.0 Baso # 0.0 Neutrophils % (Manual) 84 H Lymphocytes % (Manual) 8 L Reactive Lymphs % 2 H Monocytes % (Manual) 6 Platelet Estimate Normal RBC Morphology Normal Puncture Site pCO2 pO2 HCO3 ABG pH ABG Total CO2 ABG O2 Saturation ABG Base Excess ABG Hemoglobin ABG Carboxyhemoglobin POC ABG HHb (Measured) ABG Methemoglobin Chaz Test A-a O2 Difference Respiratory Index Hgb O2 Saturation Liter Flow Mechanical Rate FiO2 Inspiratory BiPAP Expiratory BiPAP Sodium 146 Potassium 3.5 L Chloride 101 Carbon Dioxide 32 H Anion Gap 17 BUN 51 H Creatinine 0.9 Est GFR ( Amer) > 60 Est GFR (Non-Af Amer) > 60 POC Glucose (mg/dL) 184 H 191 H Random Glucose 158 H Calcium 8.6 Phosphorus 3.8 Magnesium 2.1 Total Bilirubin 1.8 H AST 82 H ALT 122 H Alkaline Phosphatase 177 H Ammonia Total Protein 5.8 L Albumin 3.2 L Globulin 2.7 Albumin/Globulin Ratio 1.2 Vitamin B12 Free T4 TSH 3rd Generation Vancomycin Trough 15.9 H 11/07/16 11/07/16 17:07 17:35 WBC RBC Hgb Hct MCV MCH MCHC RDW Plt Count MPV Neut % (Auto) Lymph % (Auto) [place] % (Auto) Eos % (Auto) Baso % (Auto) Neut # Lymph # [place] # Eos # Baso # Neutrophils % (Manual) Lymphocytes % (Manual) Reactive Lymphs % Monocytes % (Manual) Platelet Estimate RBC Morphology Puncture Site Rra pCO2 56 H pO2 97 HCO3 27.3 ABG pH 7.34 L ABG Total CO2 31.9 H ABG O2 Saturation 99.1 H ABG Base Excess 3.1 H ABG Hemoglobin 12.9 ABG Carboxyhemoglobin 2.2 H POC ABG HHb (Measured) 0.9 ABG Methemoglobin 0.9 Chaz Test Pos A-a O2 Difference 118.0 Respiratory Index 1.2 Hgb O2 Saturation 96.0 Liter Flow 40.0 Mechanical Rate FiO2 40.0 Inspiratory BiPAP 18 Expiratory BiPAP 5 Sodium Potassium Chloride Carbon Dioxide Anion Gap BUN Creatinine Est GFR ( Amer) Est GFR (Non-Af Amer) POC Glucose (mg/dL) 251 H Random Glucose Calcium Phosphorus Magnesium Total Bilirubin AST ALT Alkaline Phosphatase Ammonia Total Protein Albumin Globulin Albumin/Globulin Ratio Vitamin B12 Free T4 TSH 3rd Generation Vancomycin Trough - EKG Data EKG comments: Atrial fibrillation. Assessment & Plan (1) Atrial fibrillation with rapid ventricular response Assessment and Plan: Atrial fibrillation with rapid ventricular rate, Most likely hypertension and CHF may be contributing factor. Her LV systolic function appears to be normal with mild MR and diastolic dysfunction. May increase cardizem infusion to control rate. When patient is alert consider starting PO cardizem. For now continue lovenox and later start Eliquis BID. MaintainK more around 4 meq and Mg around 2. Supplement K. Status: Acute (2) Bilateral lower leg cellulitis Assessment and Plan: Most likely secondary to cellulitis and CHF. ABx and diuretics. Status: Acute (3) CHF (congestive heart failure) Assessment and Plan: Diastolic dysfunction. Continue diuretics. Treat cellulitis. Fluid restriction to 1.5 liter/24 hours. Status: Acute
[2016-11-07] MEDS ORDERED: Potassium Chloride 20 mEq 100 ML IVPB ONE (21:00)
[2016-11-08] MEDS: Metoprolol 1 mg/ml Inj IVP SCH ×4 (01:09→20:15)
[2016-11-08] MEDS: Piperacill/Tazo 3.375gm in Dex 50 ML IVPB SCH ×4 (04:02→23:00)
[2016-11-08 05:35] LABS: ABG ALLEN TEST POS; ARTERIAL BLOOD HGB O2 SAT 95.6 % (95.0-98.0); DRAW SITE RR; HHB -0.1 % (0.0-5.0); METHEMOGLOBIN 1.5 % (0.0-3.0)
[2016-11-08 06:01] LABS: BASO % 0.6 % (0.0-2.0); EOS % 0.4 % (0.0-4.0); HEMATOCRIT 41.5 % (34.0-47.0); LYMPH # 0.6 K/uL (1.0-4.3); LYMPH % 8.3 % (20.0-40.0); MEAN CELL VOLUME 92.3 fL (81.0-99.0); MEAN CORPUSCULAR HGB CONC 31.4 g/dL (33.0-37.0); MONO # 0.7 K/uL (0.0-0.8); MONO % 9.1 % (0.0-10.0); NRBC % 0.1 % (0.0-2.0); PLATELET COUNT 146 K/uL (130-400); RED CELL DISTRIBUTION WIDTH 15.2 % (11.5-14.5); WHITE BLOOD COUNT 7.6 K/uL (4.8-10.8)
[2016-11-08 06:10] LABS: CHLORIDE 105 mmol/L (98-107); SODIUM 151 mmol/L (132-148)
[2016-11-08 06:11] LABS: POTASSIUM 3.3 mmol/L (3.6-5.2)
[2016-11-08 06:12] LABS: ALB/GLOB RATIO 1.2 (1.0-2.1); BILIRUBIN,DIRECT 0.8 mg/dL (0.0-0.4); BILIRUBIN,TOTAL 1.7 mg/dL (0.2-1.3); GFR AFRICAN-AMERICAN > 60; TOTAL PROTEIN 5.4 g/dL (6.3-8.3)
[2016-11-08 06:13] LABS: ALB/GLOB RATIO 1.1 (1.0-2.1); ALKALINE PHOSPHATASE 135 U/L (38-126); ALT/SGPT 93 U/L (9-52); AST/SGOT 52 U/L (14-36); BILIRUBIN,TOTAL 1.6 mg/dL (0.2-1.3); BLOOD UREA NITROGEN 43 mg/dL (7-17); CARBON DIOXIDE 30 mmol/L (22-30); GLUCOSE,RANDOM 230 mg/dL (65-105); TOTAL PROTEIN 5.4 g/dL (6.3-8.3)
[2016-11-08 06:14] LABS: CALCIUM 8.9 mg/dl (8.6-10.4); MAGNESIUM 2.2 mg/dL (1.6-2.3); PHOSPHOROUS 2.4 mg/dL (2.5-4.5)
[2016-11-08] MEDS ORDERED: Potassium Chloride 20 mEq 100 ML IVPB ONE (06:27)
[2016-11-08] MEDS: (Novolin R) Insulin Human Regular 100 units/ml vial SC SCH ×3 (07:52→17:34)
[2016-11-08 08:20] LABS: NEUTROPHIL 85 % (50-75); REACTIVE LYMPHOCYTES 1 % (0-0); TOTAL CELLS COUNTED 100
[2016-11-08] MEDS ORDERED: Propofol 10 mg/ml Inj (20 ML) ONE (08:25)
[2016-11-08 09:37] LABS: ABG ALLEN TEST PS; ABG MECHANICAL RATE 16; ARTERIAL BLOOD HGB O2 SAT 96.5 % (95.0-98.0); ATERIAL BLOOD GAS PEEP 5; DRAW SITE RR; HHB 0.1 % (0.0-5.0); METHEMOGLOBIN 1.4 % (0.0-3.0)
[2016-11-08] MEDS: Nystatin 100,000 Units/gm Cream(15 gm) TOP SCH ×3 (09:59→17:21)
[2016-11-08] MEDS ORDERED: Potassium Phosphate 15 MMOLE in Sodium Chloride 0.9% 250 ML IVPB ONE (10:30)
--- NOTE | 2016-11-08 10:49 | CP.PCM.CON ---
History of Present Illness - History of Present Illness History of Present Illness: Patient is a 61 year old female who was brought to [facility] by EMS, where she was found to be in Rapid AFib. Patient was admitted and has since been given Cardizem drip. Additionally, patient required BiPAP for continuing shortness of breath. Patient seen and examined in ICU Patient continues to have difficulty conversing. Patient continues to require BiPAP for respiratory distress On Cardizem drip at 10 mg/h for atrial fibrillation with rapid ventricular response off insulin drip Review of Systems - Review of Systems Systems not reviewed;Unavailable: Respiratory Distress, Altered Mental Status Past Patient History - Tetanus Immunizations Tetanus Immunization: Unknown - Past Medical History & Family History Past Medical History?: Yes - Past Social History Smoking Status: Current Some Days Smoker - CARDIAC Hx Hypertension: Yes Hx Peripheral Edema: Yes - PULMONARY Hx Bronchitis: Yes - NEUROLOGICAL Hx Neurological Disorder: No - HEENT Hx HEENT Problems: No Other/Comment: WEARS READING GLASSES. - RENAL Hx Chronic Kidney Disease: No - ENDOCRINE/METABOLIC Hx Hyperthyroidism: Yes - HEMATOLOGICAL/ONCOLOGICAL Hx Blood Disorders: Yes Hx Blood Transfusions: Yes Hx Blood Transfusion Reaction: No - INTEGUMENTARY Hx Cellulitis: Yes - MUSCULOSKELETAL/RHEUMATOLOGICAL Hx Arthritis: Yes Hx Falls: Yes - GASTROINTESTINAL Hx Gastrointestinal Disorders: No - GENITOURINARY/GYNECOLOGICAL Hx Genitourinary Disorders: No - PSYCHIATRIC Hx Anxiety: Yes Hx Depression: Yes Hx Substance Use: No - SURGICAL HISTORY Hx Surgeries: Yes Other/Comment: TUMOR FROM OVARIES REMOVED - ANESTHESIA Hx Anesthesia: Yes Hx Anesthesia Reactions: No Hx Malignant Hyperthermia: No Meds Allergies/Adverse Reactions: Allergies Allergy/AdvReac Type Severity Reaction Status Date / Time No Known Allergies Allergy Verified 11/04/16 11:37 - Medications Medications: Current Medications Aspirin (Aspirin Chewable) 81 mg PO DAILY [facility] Last Admin: 11/07/16 09:13 Dose: Not Given Enoxaparin Sodium (Lovenox) 110 mg SC Q12 [facility] Last Admin: 11/07/16 23:00 Dose: 110 mg Furosemide (Lasix) 40 mg IVP DAILY [facility] Last Admin: 11/08/16 09:59 Dose: 40 mg Piperacillin Sod/Tazobactam Sod (Zosyn 3.375 Gm Iv Premix) 50 mls @ 100 mls/hr IVPB Q6H [facility] Last Admin: 11/08/16 10:01 Dose: 100 mls/hr Diltiazem HCl 125 mg/ Sodium (Chloride) 125 mls @ 5 mls/hr IV .Q24H CRISTOBAL; 5 MG/ HR PRN Reason: Protocol Last Admin: 11/07/16 21:02 Dose: 10 mls/hr Propofol (Diprivan) 100 mls @ 3.493 mls/hr IV .Q24H PRN; Protocol; 5 MCG/KG/MIN PRN Reason: TITRATE PER MD ORDER Last Admin: 11/08/16 08:50 Dose: 13.972 mls/hr Potassium Phosphate 15 mmole/ (Sodium Chloride) 255 mls @ 42.5 mls/hr IVPB ONCE ONE Stop: 11/08/16 16:29 Sodium Chloride (Sodium Chloride 0.45%) 1,000 mls @ 100 mls/hr IV .Q10H [facility] Insulin Human Regular (Novolin R) 0 unit SC ACHS [facility] Last Admin: 11/08/16 07:52 Dose: 2 unit Methimazole (Tapazole) 5 mg PO TID [facility] Last Admin: 11/07/16 17:03 Dose: Not Given Metoprolol Tartrate (Lopressor) 5 mg IVP Q6H [facility] Last Admin: 11/08/16 07:53 Dose: 5 mg Nystatin (Mycostatin Cream) 0 ea TOP TID [facility] Last Admin: 11/08/16 09:59 Dose: 1 units Pantoprazole Sodium (Protonix Inj) 40 mg IVP DAILY [facility] Last Admin: 11/08/16 09:58 Dose: 40 mg Physical Exam - Constitutional Appears: Unkempt - Head Exam Head Exam: NORMAL INSPECTION - Eye Exam Eye Exam: EOMI, PERRL - ENT Exam ENT Exam: Mucous Membranes Moist - Neck Exam Neck exam: Positive for: Normal Inspection - Respiratory Exam Respiratory Exam: Decreased Breath Sounds, Wheezes. absent: Rales - Cardiovascular Exam Cardiovascular Exam: Tachycardia, Irregular Rhythm, +S1, +S2. absent: Diastolic murmur, Systolic Murmur - GI/Abdominal Exam GI & Abdominal Exam: absent: Distended, Tenderness - Extremities Exam Extremities exam: Positive for: pedal edema - Neurological Exam Neurological exam: Altered Results - Vital Signs Recent Vital Signs: Last Vital Signs Temp 98.5 F 11/08/16 08:00 Pulse 101 H 11/08/16 10:00 Resp 17 03/21/17 10:00 BP 159/60 H 11/08/16 10:00 Pulse Ox 98 11/08/16 10:00 - Labs Result Diagrams: 11/08/16 05:53 11/08/16 05:53 Labs: Laboratory Results - last 24 hr 11/07/16 11/07/16 11/07/16 08:28 12:05 17:07 WBC RBC Hgb Hct MCV MCH MCHC RDW Plt Count MPV Neut % (Auto) Lymph % (Auto) [place] % (Auto) Eos % (Auto) Baso % (Auto) Neut # Lymph # [place] # Eos # Baso # Neutrophils % (Manual) Band Neutrophils % Lymphocytes % (Manual) Reactive Lymphs % Monocytes % (Manual) Platelet Estimate Anisocytosis (manual) Puncture Site pCO2 pO2 HCO3 ABG pH ABG Total CO2 ABG O2 Saturation ABG Base Excess ABG Hemoglobin ABG Carboxyhemoglobin POC ABG HHb (Measured) ABG Methemoglobin Chaz Test A-a O2 Difference Respiratory Index Hgb O2 Saturation Liter Flow Mechanical Rate FiO2 Tidal Volume PEEP Inspiratory BiPAP Expiratory BiPAP Sodium Potassium Chloride Carbon Dioxide Anion Gap BUN Creatinine Est GFR ( Amer) Est GFR (Non-Af Amer) POC Glucose (mg/dL) 184 H 191 H 251 H Random Glucose Hemoglobin A1c Calcium Phosphorus Magnesium Total Bilirubin Direct Bilirubin AST ALT Alkaline Phosphatase Total Protein Albumin Globulin Albumin/Globulin Ratio Triglycerides Cholesterol LDL Cholesterol Direct HDL Cholesterol 11/07/16 11/07/16 11/08/16 17:35 21:15 05:12 WBC RBC Hgb Hct MCV MCH MCHC RDW Plt Count MPV Neut % (Auto) Lymph % (Auto) [place] % (Auto) Eos % (Auto) Baso % (Auto) Neut # Lymph # [place] # Eos # Baso # Neutrophils % (Manual) Band Neutrophils % Lymphocytes % (Manual) Reactive Lymphs % Monocytes % (Manual) Platelet Estimate Anisocytosis (manual) Puncture Site Rra Rr pCO2 56 H 46 H pO2 97 109 H HCO3 27.3 24.5 ABG pH 7.34 L 7.35 ABG Total CO2 31.9 H 26.8 ABG O2 Saturation 99.1 H 100.1 H ABG Base Excess 3.1 H -0.5 ABG Hemoglobin 12.9 10.8 L ABG Carboxyhemoglobin 2.2 H 3.0 H POC ABG HHb (Measured) 0.9 -0.1 L ABG Methemoglobin 0.9 1.5 Chaz Test Pos Pos A-a O2 Difference 118.0 119.0 Respiratory Index 1.2 1.1 Hgb O2 Saturation 96.0 95.6 Liter Flow 40.0 Mechanical Rate FiO2 40.0 40.0 Tidal Volume PEEP Inspiratory BiPAP 18 18 Expiratory BiPAP 5 5 Sodium Potassium Chloride Carbon Dioxide Anion Gap BUN Creatinine Est GFR ( Amer) Est GFR (Non-Af Amer) POC Glucose (mg/dL) 183 H Random Glucose Hemoglobin A1c Calcium Phosphorus Magnesium Total Bilirubin Direct Bilirubin AST ALT Alkaline Phosphatase Total Protein Albumin Globulin Albumin/Globulin Ratio Triglycerides Cholesterol LDL Cholesterol Direct HDL Cholesterol 11/08/16 11/08/16 11/08/16 05:53 07:31 09:34 WBC 7.6 RBC 4.49 Hgb 13.0 Hct 41.5 MCV 92.3 MCH 29.0 MCHC 31.4 L RDW 15.2 H Plt Count 146 MPV 9.0 Neut % (Auto) 81.6 H Lymph % (Auto) 8.3 L [place] % (Auto) 9.1 Eos % (Auto) 0.4 Baso % (Auto) 0.6 Neut # 6.2 Lymph # 0.6 L [place] # 0.7 Eos # 0.0 Baso # 0.0 Neutrophils % (Manual) 85 H Band Neutrophils % 3 H Lymphocytes % (Manual) 6 L Reactive Lymphs % 1 H Monocytes % (Manual) 5 Platelet Estimate Normal Anisocytosis (manual) Slight Puncture Site Rr pCO2 65 H pO2 345 H HCO3 29.3 H ABG pH 7.32 L ABG Total CO2 35.5 H ABG O2 Saturation 99.9 H ABG Base Excess 5.6 H ABG Hemoglobin 12.1 ABG Carboxyhemoglobin 2.0 H POC ABG HHb (Measured) 0.1 ABG Methemoglobin 1.4 Chaz Test Ps A-a O2 Difference 287.0 Respiratory Index 0.8 Hgb O2 Saturation 96.5 Liter Flow Mechanical Rate 16 FiO2 100.0 Tidal Volume 500 PEEP 5 Inspiratory BiPAP Expiratory BiPAP Sodium 151 H Potassium 3.3 L Chloride 105 Carbon Dioxide 30 Anion Gap 19 BUN 43 H Creatinine 0.8 Est GFR ( Amer) > 60 Est GFR (Non-Af Amer) > 60 POC Glucose (mg/dL) 187 H Random Glucose 230 H Hemoglobin A1c 14.3 H D Calcium 8.9 Phosphorus 2.4 L Magnesium 2.2 Total Bilirubin 1.6 H Direct Bilirubin 0.8 H AST 52 H D ALT 93 H D Alkaline Phosphatase 135 H D Total Protein 5.4 L Albumin 2.8 L Globulin 2.6 Albumin/Globulin Ratio 1.1 Triglycerides 154 H D Cholesterol 108 LDL Cholesterol Direct 71 HDL Cholesterol 17 L Assessment & Plan (1) Atrial fibrillation with rapid ventricular response Assessment and Plan: Continue lopressor and start cardizem through NG tube Continue anticoagulation and ASA Check results of Echocardiogram Status: Acute (2) Bilateral lower leg cellulitis Status: Acute (3) Hyperosmolar non-ketotic state in patient with type 2 diabetes mellitus Status: Acute (4) Respiratory failure with hypoxia Status: Acute
[2016-11-08] MEDS: Sodium Chloride 0.45% 1,000 ML IV SCH ×2 (10:56→20:45)
[2016-11-08] MEDS: methIMAzole 5 MG TAB PO SCH ×3 (11:00→17:21)
[2016-11-08] MEDS: Enoxaparin 120 mg Syringe SC SCH ×2 (12:00→22:59)
--- NOTE | 2016-11-08 12:30 | RAD ---
HISTORY: post intubation COMPARISON: 11/08/2016 FINDINGS: Upper the endotracheal tube terminates 4.3 cm proximal to the elier. LUNGS: There is interval worsening of pulmonary venous congestion and development of interstitial pulmonary edema. PLEURA: There are worsening bilateral pleural effusions, larger on the right. CARDIOVASCULAR: There is mild cardiomegaly and prominent central vasculature. OSSEOUS STRUCTURES: No significant abnormalities. VISUALIZED UPPER ABDOMEN: Normal. OTHER FINDINGS: None. IMPRESSION: Worsening congestive heart failure. Endotracheal tube terminates 4.3 cm proximal to the elier.
--- NOTE | 2016-11-08 12:54 | VASCLAB ---
PROCEDURE: HISTORY: subacute stroke in the ct COMPARISON: None available. TECHNIQUE: Grayscale and duplex Doppler evaluation of the cervical carotid and vertebral arteries were performed. The common carotid, carotid bifurcations and cervical Internal Carotid Artery (ICA) and proximal External Carotid Artery (ECA) were evaluated. The vertebral arteries were evaluated for gross patency and flow direction. Report prepared by Jalen Valenzuela, BS, RVT FINDINGS: RIGHT CAROTID ARTERIES: 1. Common Carotid Artery: No significant focal plaque formation of the right common carotid artery. Maximum Peak Systolic velocity: 86 cm/sec: End-diastolic velocity 23 cm/sec. 2. Carotid Bifurcation: Calcific plaque formation. Maximum Peak Systolic velocity: 84 cm/sec: End-diastolic velocity 15 cm/sec. 3. Internal Carotid Artery: Plaque description: 3.1. Proximal Segment: Peak systolic velocity 88 cm/sec: End-diastolic velocity 21 cm/sec - % stenosis 0-15% 3.2. Middle Segment: Peak systolic velocity 100 cm/sec: End-diastolic velocity 23 cm/sec - % stenosis 0-15% 3.3. Distal Segment: Peak systolic velocity 112 cm/sec: End-diastolic velocity 33 cm/sec - % stenosis 0-15% 4. External Carotid Artery: No significant focal plaque formation. Peak systolic velocity 132 cm/sec 5. ICA/CCA Ratio: 1.3 LEFT CAROTID ARTERIES: 1. Common Carotid Artery: No significant focal plaque formation of the left common carotid artery. Maximum Peak Systolic velocity: 114 cm/sec: End-diastolic velocity 15 cm/sec. 2. Carotid Bifurcation: plaque formation. Maximum Peak Systolic velocity: 77 cm/sec: End-diastolic velocity 21 cm/sec. 3. Internal Carotid Artery: Plaque description: 3.1. Proximal Segment: Peak systolic velocity 93 cm/sec: End-diastolic velocity 27 cm/sec - % stenosis 0-15% 3.2. Middle Segment: Peak systolic velocity 111 cm/sec: End-diastolic velocity 37 cm/sec - % stenosis 0-15% 3.3. Distal Segment: Peak systolic velocity 119 cm/sec: End-diastolic velocity 35 cm/sec - % stenosis 0-15% 4. External Carotid Artery: No significant focal plaque formation. Peak systolic velocity 180 cm/sec 5. ICA/CCA Ratio: 1.0 VERTEBRAL ARTERIES: 1. Right Vertebral Artery: The right vertebral artery flow direction is antegrade. 2. Left Vertebral Artery: The left vertebral artery flow direction is antegrade. OTHER FINDINGS: 1. Right Brachial Blood pressure: 126 mmHg. 2. Left Brachial Blood pressure: mmHg. IMPRESSION: RIGHT: Duplex scan does not suggest hemodynamically significant stenosis of the right extracranial carotid arteries. LEFT: Duplex scan does not suggest hemodynamically significant stenosis of the left extracranial carotid arteries.
--- NOTE | 2016-11-08 12:55 | RAD ---
HISTORY: respiratory failure req bipap COMPARISON: 11/07/2016 FINDINGS: LUNGS: There is pulmonary venous congestion. There is a left retrocardiac opacity. PLEURA: No significant pleural effusion identified, no pneumothorax apparent. CARDIOVASCULAR: There is mild cardiomegaly. OSSEOUS STRUCTURES: No significant abnormalities. VISUALIZED UPPER ABDOMEN: Normal. OTHER FINDINGS: None. IMPRESSION: Mild cardiomegaly and pulmonary venous congestion. Left retrocardiac opacity may represent atelectasis/ pneumonia or pleural effusion. Follow-up is advised.
--- NOTE | 2016-11-08 12:59 | RAD ---
HISTORY: post TLC insertion COMPARISON: 11/08/2016 at 9:55 a.m. FINDINGS: Upper the endotracheal tube terminates 4.3 cm proximal to the elier. The right IJV line terminates in the SVC. The nasogastric tube terminates in the stomach. LUNGS: There is redemonstration of bilateral lower lobe airspace disease, worse on the right. There is no significant interval change in pulmonary venous congestion. PLEURA: There are bilateral pleural effusions. CARDIOVASCULAR: Normal. OSSEOUS STRUCTURES: No significant abnormalities. VISUALIZED UPPER ABDOMEN: Normal. OTHER FINDINGS: None. IMPRESSION: No change in bilateral lower lobe pneumonia and pleural effusions, worse on the right.
--- NOTE | 2016-11-08 13:06 | CP.CCUPN ---
<Eloina Allen - Last Filed: 11/08/16 13:20> CCU Subjective - Physician Review Subjective (Free Text): 11/08/16 13:06 Pt seen in mild distress requiring intubation. Two large pieces of dried mucus were extracted from the patient's throat obstructing vocal cords. Patient intubated. TLC line was also placed to ensure better IV access. As there is no power of management recruiter or legal guardian, an administrative consent was obtained for central line. An ROS could not be obtained at this time because patient is intubated and sedated. 11/08/16 13:21 CCU Objective - Vital Signs / Intake & Output Vital Signs (Last 4 hours): Vital Signs Temp Pulse Resp BP Pulse Ox 11/08/16 13:00 98 H 19 148/52 L 98 11/08/16 12:00 98.7 F 95 H 19 149/50 L 99 11/08/16 11:00 110 H 18 166/52 H 99 11/08/16 10:00 101 H 17 159/60 H 98 11/08/16 09:59 146/55 L Intake and Output (Last 8hrs): Intake & Output 11/07/16 11/08/16 11/08/16 22:59 06:59 14:59 Intake Total 150 130 146.6 Output Total 785 710 Balance -635 -580 146.6 Weight 256 lb 11.2 oz Intake: Intake, IV Amount 150 130 146.6 Left Hand 50 80 15 Right Hand 100 50 Left Forearm 131.6 Oral 0 0 Output: Urine 785 710 Urethral ([place]) 785 710 Other: # Bowel Movements 0 1 - Physical Exam Head: Positive for: Atraumatic, Normocephalic Pupils: Positive for: PERRL. Negative for: Sluggish, Non-Reactive Extroacular Muscles: Positive for: EOMI. Negative for: Gaze Palsy Conjunctiva: Positive for: Normal. Negative for: Injected, Icteric Neck: Positive for: Normal Range of Motion, Trachea Midline. Negative for: Meningeal Signs, MIDLINE TENDERNESS, Paraspinal Tenderness, JVD, Lymphadenopathy , Bruit, Other Respiratory/Chest: Positive for: Wheezes, Decreased Breath Sounds. Negative for : Rales Cardiovascular: Positive for: Irregular Rhythm, Peripheal Pulses Present, Tachycardic. Negative for: Murmurs, Normal S1, S2 Abdomen: Negative for: Tenderness, Distention Upper Extremity: Positive for: Normal Inspection Lower Extremity: Positive for: Edema Neurological: Negative for: Speech Normal Psychiatric: Negative for: Alert, Oriented x 3 - Medications Active Medications: Active Medications Generic Name Dose Route Start Last Admin Trade Name Freq PRN Reason Stop Dose Admin Aspirin 81 mg 11/07/16 10:00 11/08/16 11:00 Aspirin Chewable PO 81 mg DAILY CRISTOBAL Administration Enoxaparin Sodium 110 mg 11/07/16 10:00 11/07/16 23:00 Lovenox SC 110 mg Q12 CRISTOBAL Administration Furosemide 40 mg 11/07/16 10:00 11/08/16 09:59 Lasix IVP 40 mg DAILY CRISTOBAL Administration Piperacillin Sod/Tazobactam Sod 50 mls @ 100 mls/hr 11/04/16 16:45 11/08/16 10: 01 Zosyn 3.375 Gm Iv Premix IVPB 100 mls/hr Q6H CRISTOBAL Administration Diltiazem HCl 125 mg/ Sodium 125 mls @ 5 mls/hr 11/05/16 22:00 11/07/16 21:02 Chloride IV 10 mls/hr .Q24H CRISTOBAL Administration Protocol 5 MG/HR Propofol 100 mls @ 3.493 mls/hr 11/08/16 08:29 11/08/16 11:03 Diprivan IV 27.945 mls/hr .Q24H PRN Administration TITRATE PER MD ORDER Protocol 5 MCG/KG/MIN Potassium Phosphate 15 mmole/ 255 mls @ 42.5 mls/hr 11/08/16 10:30 11/08/16 10: 55 Sodium Chloride IVPB 11/08/16 16:29 42.5 mls/hr ONCE ONE Administration Sodium Chloride 1,000 mls @ 100 mls/hr 11/08/16 10:15 11/08/16 10:56 Sodium Chloride 0.45% IV 100 mls/hr .Q10H CRISTOBAL Administration Insulin Human Regular 0 unit 11/05/16 11:30 11/08/16 07:52 Novolin R SC 2 unit ACHS CRISTOBAL Administration Methimazole 5 mg 11/07/16 10:00 11/08/16 11:00 Tapazole PO 5 mg TID CRISTOBAL Administration Metoprolol Tartrate 5 mg 11/04/16 19:45 11/08/16 07:53 Lopressor IVP 5 mg Q6H CRISTOBAL Administration Nystatin 0 ea 11/04/16 18:00 11/08/16 09:59 Mycostatin Cream TOP 1 units TID CRISTOBAL Administration Pantoprazole Sodium 40 mg 11/04/16 16:45 11/08/16 09:58 Protonix Inj IVP 40 mg DAILY CRISTOBAL Administration - Patient Studies Lab Studies: Lab Studies 11/08/16 11/08/16 11/08/16 Range/Units 12:19 09:34 07:31 WBC (4.8-10.8) K/uL RBC (3.80-5.20) Mil/uL Hgb (11.0-16.0) g/dL Hct (34.0-47.0) % MCV (81.0-99.0) fL MCH (27.0-31.0) pg MCHC (33.0-37.0) g/dL RDW (11.5-14.5) % Plt Count (130-400) K/uL MPV (7.2-11.7) fL Neut % (Auto) (50.0-75.0) % Lymph % (Auto) (20.0-40.0) % Curry % (Auto) (0.0-10.0) % Eos % (Auto) (0.0-4.0) % Baso % (Auto) (0.0-2.0) % Neut # (1.8-7.0) K/uL Lymph # (1.0-4.3) K/uL Curry # (0.0-0.8) K/uL Eos # (0.0-0.7) K/uL Baso # (0.0-0.2) K/uL Neutrophils % (Manual) (50-75) % Band Neutrophils % (0-2) % Lymphocytes % (Manual) (20-40) % Reactive Lymphs % (0-0) % Monocytes % (Manual) (0-10) % Platelet Estimate (NORMAL) Anisocytosis (manual) Puncture Site Rr pCO2 65 H (35-45) mm/Hg pO2 345 H (80-100) mm/Hg HCO3 29.3 H (21-28) mmol/L ABG pH 7.32 L (7.35-7.45) ABG Total CO2 35.5 H (22-28) mmol/L ABG O2 Saturation 99.9 H (95-98) % ABG Base Excess 5.6 H (-2.0-3.0) mmol/L ABG Hemoglobin 12.1 (11.7-17.4) g/dL ABG Carboxyhemoglobin 2.0 H (0.5-1.5) % POC ABG HHb (Measured) 0.1 (0.0-5.0) % ABG Methemoglobin 1.4 (0.0-3.0) % Chaz Test Ps A-a O2 Difference 287.0 mm/Hg Respiratory Index 0.8 Hgb O2 Saturation 96.5 (95.0-98.0) % Liter Flow Mechanical Rate 16 FiO2 100.0 % Tidal Volume 500 PEEP 5 Inspiratory BiPAP Expiratory BiPAP Sodium (132-148) mmol/L Potassium (3.6-5.2) mmol/L Chloride (98-107) mmol/L Carbon Dioxide (22-30) mmol/L Anion Gap (10-20) BUN (7-17) mg/dL Creatinine (0.7-1.2) MG/DL Est GFR ( Amer) Est GFR (Non-Af Amer) POC Glucose (mg/dL) 286 H 187 H (65-110) mg/dL Random Glucose (65-105) mg/dL Hemoglobin A1c (4.2-6.5) % Calcium (8.6-10.4) mg/dl Phosphorus (2.5-4.5) mg/dL Magnesium (1.6-2.3) mg/dL Total Bilirubin (0.2-1.3) mg/dL Direct Bilirubin (0.0-0.4) mg/dL AST (14-36) U/L ALT (9-52) U/L Alkaline Phosphatase (38-126) U/L Total Protein (6.3-8.3) g/dL Albumin (3.5-5.0) g/dL Globulin (2.2-3.9) gm/dL Albumin/Globulin Ratio (1.0-2.1) Triglycerides (0-149) mg/dL Cholesterol (0-199) mg/dL LDL Cholesterol Direct (0-129) mg/dL HDL Cholesterol (30-70) mg/dL 11/08/16 11/08/16 11/07/16 Range/Units 05:53 05:12 21:15 WBC 7.6 (4.8-10.8) K/uL RBC 4.49 (3.80-5.20) Mil/uL Hgb 13.0 (11.0-16.0) g/dL Hct 41.5 (34.0-47.0) % MCV 92.3 (81.0-99.0) fL MCH 29.0 (27.0-31.0) pg MCHC 31.4 L (33.0-37.0) g/dL RDW 15.2 H (11.5-14.5) % Plt Count 146 (130-400) K/uL MPV 9.0 (7.2-11.7) fL Neut % (Auto) 81.6 H (50.0-75.0) % Lymph % (Auto) 8.3 L (20.0-40.0) % Curry % (Auto) 9.1 (0.0-10.0) % Eos % (Auto) 0.4 (0.0-4.0) % Baso % (Auto) 0.6 (0.0-2.0) % Neut # 6.2 (1.8-7.0) K/uL Lymph # 0.6 L (1.0-4.3) K/uL Curry # 0.7 (0.0-0.8) K/uL Eos # 0.0 (0.0-0.7) K/uL Baso # 0.0 (0.0-0.2) K/uL Neutrophils % (Manual) 85 H (50-75) % Band Neutrophils % 3 H (0-2) % Lymphocytes % (Manual) 6 L (20-40) % Reactive Lymphs % 1 H (0-0) % Monocytes % (Manual) 5 (0-10) % Platelet Estimate Normal (NORMAL) Anisocytosis (manual) Slight Puncture Site Rr pCO2 46 H (35-45) mm/Hg pO2 109 H (80-100) mm/Hg HCO3 24.5 (21-28) mmol/L ABG pH 7.35 (7.35-7.45) ABG Total CO2 26.8 (22-28) mmol/L ABG O2 Saturation 100.1 H (95-98) % ABG Base Excess -0.5 (-2.0-3.0) mmol/L ABG Hemoglobin 10.8 L (11.7-17.4) g/dL ABG Carboxyhemoglobin 3.0 H (0.5-1.5) % POC ABG HHb (Measured) -0.1 L (0.0-5.0) % ABG Methemoglobin 1.5 (0.0-3.0) % Chaz Test Pos A-a O2 Difference 119.0 mm/Hg Respiratory Index 1.1 Hgb O2 Saturation 95.6 (95.0-98.0) % Liter Flow Mechanical Rate FiO2 40.0 % Tidal Volume PEEP Inspiratory BiPAP 18 Expiratory BiPAP 5 Sodium 151 H (132-148) mmol/L Potassium 3.3 L (3.6-5.2) mmol/L Chloride 105 (98-107) mmol/L Carbon Dioxide 30 (22-30) mmol/L Anion Gap 19 (10-20) BUN 43 H (7-17) mg/dL Creatinine 0.8 (0.7-1.2) MG/DL Est GFR ( Amer) > 60 Est GFR (Non-Af Amer) > 60 POC Glucose (mg/dL) 183 H (65-110) mg/dL Random Glucose 230 H (65-105) mg/dL Hemoglobin A1c 14.3 H D (4.2-6.5) % Calcium 8.9 (8.6-10.4) mg/dl Phosphorus 2.4 L (2.5-4.5) mg/dL Magnesium 2.2 (1.6-2.3) mg/dL Total Bilirubin 1.7 H (0.2-1.3) mg/dL Direct Bilirubin 0.8 H (0.0-0.4) mg/dL AST 54 H (14-36) U/L ALT 101 H (9-52) U/L Alkaline Phosphatase 139 H (38-126) U/L Total Protein 5.4 L (6.3-8.3) g/dL Albumin 2.9 L (3.5-5.0) g/dL Globulin 2.5 (2.2-3.9) gm/dL Albumin/Globulin Ratio 1.2 (1.0-2.1) Triglycerides 154 H D (0-149) mg/dL Cholesterol 108 (0-199) mg/dL LDL Cholesterol Direct 71 (0-129) mg/dL HDL Cholesterol 17 L (30-70) mg/dL 11/07/16 11/07/16 Range/Units 17:35 17:07 WBC (4.8-10.8) K/uL RBC (3.80-5.20) Mil/uL Hgb (11.0-16.0) g/dL Hct (34.0-47.0) % MCV (81.0-99.0) fL MCH (27.0-31.0) pg MCHC (33.0-37.0) g/dL RDW (11.5-14.5) % Plt Count (130-400) K/uL MPV (7.2-11.7) fL Neut % (Auto) (50.0-75.0) % Lymph % (Auto) (20.0-40.0) % Curry % (Auto) (0.0-10.0) % Eos % (Auto) (0.0-4.0) % Baso % (Auto) (0.0-2.0) % Neut # (1.8-7.0) K/uL Lymph # (1.0-4.3) K/uL Curry # (0.0-0.8) K/uL Eos # (0.0-0.7) K/uL Baso # (0.0-0.2) K/uL Neutrophils % (Manual) (50-75) % Band Neutrophils % (0-2) % Lymphocytes % (Manual) (20-40) % Reactive Lymphs % (0-0) % Monocytes % (Manual) (0-10) % Platelet Estimate (NORMAL) Anisocytosis (manual) Puncture Site Rra pCO2 56 H (35-45) mm/Hg pO2 97 (80-100) mm/Hg HCO3 27.3 (21-28) mmol/L ABG pH 7.34 L (7.35-7.45) ABG Total CO2 31.9 H (22-28) mmol/L ABG O2 Saturation 99.1 H (95-98) % ABG Base Excess 3.1 H (-2.0-3.0) mmol/L ABG Hemoglobin 12.9 (11.7-17.4) g/dL ABG Carboxyhemoglobin 2.2 H (0.5-1.5) % POC ABG HHb (Measured) 0.9 (0.0-5.0) % ABG Methemoglobin 0.9 (0.0-3.0) % Chaz Test Pos A-a O2 Difference 118.0 mm/Hg Respiratory Index 1.2 Hgb O2 Saturation 96.0 (95.0-98.0) % Liter Flow 40.0 Mechanical Rate FiO2 40.0 % Tidal Volume PEEP Inspiratory BiPAP 18 Expiratory BiPAP 5 Sodium (132-148) mmol/L Potassium (3.6-5.2) mmol/L Chloride (98-107) mmol/L Carbon Dioxide (22-30) mmol/L Anion Gap (10-20) BUN (7-17) mg/dL Creatinine (0.7-1.2) MG/DL Est GFR ( Amer) Est GFR (Non-Af Amer) POC Glucose (mg/dL) 251 H (65-110) mg/dL Random Glucose (65-105) mg/dL Hemoglobin A1c (4.2-6.5) % Calcium (8.6-10.4) mg/dl Phosphorus (2.5-4.5) mg/dL Magnesium (1.6-2.3) mg/dL Total Bilirubin (0.2-1.3) mg/dL Direct Bilirubin (0.0-0.4) mg/dL AST (14-36) U/L ALT (9-52) U/L Alkaline Phosphatase (38-126) U/L Total Protein (6.3-8.3) g/dL Albumin (3.5-5.0) g/dL Globulin (2.2-3.9) gm/dL Albumin/Globulin Ratio (1.0-2.1) Triglycerides (0-149) mg/dL Cholesterol (0-199) mg/dL LDL Cholesterol Direct (0-129) mg/dL HDL Cholesterol (30-70) mg/dL Laboratory Results - last 24 hr 11/07/16 11/07/16 11/07/16 17:07 17:35 21:15 WBC RBC Hgb Hct MCV MCH MCHC RDW Plt Count MPV Neut % (Auto) Lymph % (Auto) Curry % (Auto) Eos % (Auto) Baso % (Auto) Neut # Lymph # Curry # Eos # Baso # Neutrophils % (Manual) Band Neutrophils % Lymphocytes % (Manual) Reactive Lymphs % Monocytes % (Manual) Platelet Estimate Anisocytosis (manual) Puncture Site Rra pCO2 56 H pO2 97 HCO3 27.3 ABG pH 7.34 L ABG Total CO2 31.9 H ABG O2 Saturation 99.1 H ABG Base Excess 3.1 H ABG Hemoglobin 12.9 ABG Carboxyhemoglobin 2.2 H POC ABG HHb (Measured) 0.9 ABG Methemoglobin 0.9 Chaz Test Pos A-a O2 Difference 118.0 Respiratory Index 1.2 Hgb O2 Saturation 96.0 Liter Flow 40.0 Mechanical Rate FiO2 40.0 Tidal Volume PEEP Inspiratory BiPAP 18 Expiratory BiPAP 5 Sodium Potassium Chloride Carbon Dioxide Anion Gap BUN Creatinine Est GFR ( Amer) Est GFR (Non-Af Amer) POC Glucose (mg/dL) 251 H 183 H Random Glucose Hemoglobin A1c Calcium Phosphorus Magnesium Total Bilirubin Direct Bilirubin AST ALT Alkaline Phosphatase Total Protein Albumin Globulin Albumin/Globulin Ratio Triglycerides Cholesterol LDL Cholesterol Direct HDL Cholesterol 11/08/16 11/08/16 11/08/16 05:12 05:53 07:31 WBC 7.6 RBC 4.49 Hgb 13.0 Hct 41.5 MCV 92.3 MCH 29.0 MCHC 31.4 L RDW 15.2 H Plt Count 146 MPV 9.0 Neut % (Auto) 81.6 H Lymph % (Auto) 8.3 L Curry % (Auto) 9.1 Eos % (Auto) 0.4 Baso % (Auto) 0.6 Neut # 6.2 Lymph # 0.6 L Curry # 0.7 Eos # 0.0 Baso # 0.0 Neutrophils % (Manual) 85 H Band Neutrophils % 3 H Lymphocytes % (Manual) 6 L Reactive Lymphs % 1 H Monocytes % (Manual) 5 Platelet Estimate Normal Anisocytosis (manual) Slight Puncture Site Rr pCO2 46 H pO2 109 H HCO3 24.5 ABG pH 7.35 ABG Total CO2 26.8 ABG O2 Saturation 100.1 H ABG Base Excess -0.5 ABG Hemoglobin 10.8 L ABG Carboxyhemoglobin 3.0 H POC ABG HHb (Measured) -0.1 L ABG Methemoglobin 1.5 Chaz Test Pos A-a O2 Difference 119.0 Respiratory Index 1.1 Hgb O2 Saturation 95.6 Liter Flow Mechanical Rate FiO2 40.0 Tidal Volume PEEP Inspiratory BiPAP 18 Expiratory BiPAP 5 Sodium 151 H Potassium 3.3 L Chloride 105 Carbon Dioxide 30 Anion Gap 19 BUN 43 H Creatinine 0.8 Est GFR ( Amer) > 60 Est GFR (Non-Af Amer) > 60 POC Glucose (mg/dL) 187 H Random Glucose 230 H Hemoglobin A1c 14.3 H D Calcium 8.9 Phosphorus 2.4 L Magnesium 2.2 Total Bilirubin 1.6 H Direct Bilirubin 0.8 H AST 52 H D ALT 93 H D Alkaline Phosphatase 135 H D Total Protein 5.4 L Albumin 2.8 L Globulin 2.6 Albumin/Globulin Ratio 1.1 Triglycerides 154 H D Cholesterol 108 LDL Cholesterol Direct 71 HDL Cholesterol 17 L 11/08/16 11/08/16 09:34 12:19 WBC RBC Hgb Hct MCV MCH MCHC RDW Plt Count MPV Neut % (Auto) Lymph % (Auto) Curry % (Auto) Eos % (Auto) Baso % (Auto) Neut # Lymph # Curry # Eos # Baso # Neutrophils % (Manual) Band Neutrophils % Lymphocytes % (Manual) Reactive Lymphs % Monocytes % (Manual) Platelet Estimate Anisocytosis (manual) Puncture Site Rr pCO2 65 H pO2 345 H HCO3 29.3 H ABG pH 7.32 L ABG Total CO2 35.5 H ABG O2 Saturation 99.9 H ABG Base Excess 5.6 H ABG Hemoglobin 12.1 ABG Carboxyhemoglobin 2.0 H POC ABG HHb (Measured) 0.1 ABG Methemoglobin 1.4 Chaz Test Ps A-a O2 Difference 287.0 Respiratory Index 0.8 Hgb O2 Saturation 96.5 Liter Flow Mechanical Rate 16 FiO2 100.0 Tidal Volume 500 PEEP 5 Inspiratory BiPAP Expiratory BiPAP Sodium Potassium Chloride Carbon Dioxide Anion Gap BUN Creatinine Est GFR ( Amer) Est GFR (Non-Af Amer) POC Glucose (mg/dL) 286 H Random Glucose Hemoglobin A1c Calcium Phosphorus Magnesium Total Bilirubin Direct Bilirubin AST ALT Alkaline Phosphatase Total Protein Albumin Globulin Albumin/Globulin Ratio Triglycerides Cholesterol LDL Cholesterol Direct HDL Cholesterol Fingerstick Blood Sugar Results: 184 Critical Care Progress Note - Nutrition Nutrition: Nutrition Category Date Time Status Dysphagia/Modified Consistency Diet [DIET] Diets 11/06/16 Lunch Active Assessment/Plan - Assessment and Plan (Free Text) Assessment: Patient with past medical history of diabetes, HTN, hyperthyroidism, depression , anxiety, peripheral edema brought in by EMS with altered mental status and in rapid A-fib and hyperglycemia. Patient continues to be observed and managed in the ICU with improving glucose levels and mentation. Patient continues to have a -fib @ 101 bpm. Patient intubated and sedated today. Plan: Neuro: Altered mental status Neurochecks q4 11/06 CT Head: hypoattenuation of the left frontal region. No fracture, no hemorrhage, and no sinusitis. Propofol @ 3.493 cc/hr IV Q24H (5 mcg/kg/min) Cardio: Rapid A-fib @ 168 bpm on admission Telemetry: 11/07: A-fib @ 90 bpm 11/04 NT Pro BNPL [id number] Imagin/20 Carotid doppler: preliminary report bilateral mild disease 11/07 Echocardiogram: EF 63% 11/04 EKG: atrial fibrillation + RVR @ 153 bpm Metoprolol titrate 5 mg IVP Q6H Diltiazem 125 @ 5 cc/hr IV Q24H, 5 mg/hr F/U Dr. Salomon [facility] Continue diuretic treatment Lasix 40 mg IVP Pulm: Maintain O2 Sat >92% ABG 11/08 pH 7.32 , CO2 65, O2 345, HCO3 29.3 11/07 pH 7.34, CO2 60, O2 142, HCO3 28.6 11/07 pH 7.30, CO2 55, O2 102, HCO3 24.7 VBG 11/04 pH 7.22, CO2 59, O2 45, HCO3 20.7, VBG O2 Sat 76.2 Imagin/21 CXR: pneumonia and effusions, lines adequately placed 11/07 CXR: bilateral lower lobe opacities parts counter representative of atelectasis and/or infiltrate. Suspect bilateral effusions. Central pulmonary vasculature is slightly increased. Findings represent mild chronic compensated pulmonary edema/ CHF 11/04 CXR: bilateral hilar enlargement. Interval removal of left sided PICC, mildly enlarged cardiomediastinal silhouette when compared to prior radiographs. Lateral PA radiograph recommended. 11/06 CT Abdomen/Pelvis: bilateral pleural effusions. Extensive adenopathy, thyroid lesions Endo: On admission: HHS v DKA . Dr. Thompson on board- F/U Hypokalemia - repleted Hemoglobin A1c - 14.3 Accucheck q4 Monitor potassium q4 Methimazole 5 mg PO TID 100 units Novolin R / NS 99cc IV 2 cc/hr GI: Tube Feeding F/U dietary reccs AST/ALT 52/93 ALP 135 ALP: 177 Daily CMP IVF NS @ 50 cc/hr : I/Os = 575/2215 = -1640 cc Monitor I/Os Renal: BUN/Cr: 43/0.8 UA: pH 5.0, specific gravity 1.025, negative ketones, 3+ Glucose Monitor I/Os Hypokalemia (3.3) - repleted Maintain K close to 4 and Mag close to 2 Heme: H&H: 13.0/41.5 Daily CBC ID: WBC: 7.6 (12.3>10.2>7.6) Neutro: 85 (82>84>85) Bands: 3 Daily CBC Zosyn 3.375 gm 50 cc @ 100cc/hr Nystatin TOP TID MSK: Hx of Cellulitis and venous insufficiency on bilateral anterior tibias - contraindication for SCDs Prophylaxis: DVT: ASA 81 mg PO daily, Lovenox 110 mg SC Q12 SCD contraindication due to venous insufficiency and cellulitis of bilateral lower extremities GI: Protonix 40 mg IVP daily <Aki Calle - Last Filed: 11/08/16 17:44> CCU Objective - Vital Signs / Intake & Output Vital Signs (Last 4 hours): Vital Signs Temp Pulse Resp BP Pulse Ox 11/08/16 17:00 89 21 123/62 99 11/08/16 16:00 97.8 F 92 H 20 111/51 L 100 11/08/16 15:00 88 20 153/65 H 99 11/08/16 14:00 92 H 21 153/55 H 99 Intake and Output (Last 8hrs): Intake & Output 11/08/16 11/08/16 11/08/16 06:59 14:59 22:59 Intake Total 130 310.5 217 Output Total 710 Balance -580 310.5 217 Weight 256 lb 11.2 oz Intake: Intake, IV Amount 130 300.5 187 Left Hand 80 15 Right Hand 50 Left Forearm 159.5 20 Right Internal Jugular 41 Right Distal Port 126 126 Internal Jugular Oral 0 10 30 Output: Urine 710 Urethral ([place]ill) 710 Other: # Bowel Movements 1 - Medications Active Medications: Active Medications Generic Name Dose Route Start Last Admin Trade Name Freq PRN Reason Stop Dose Admin Aspirin 81 mg 11/07/16 10:00 11/08/16 11:00 Aspirin Chewable PO 81 mg DAILY CRISTOBAL Administration Enoxaparin Sodium 110 mg 11/07/16 10:00 11/08/16 12:00 Lovenox SC 110 mg Q12 CRISTOBAL Administration Furosemide 40 mg 11/07/16 10:00 11/08/16 09:59 Lasix IVP 40 mg DAILY CRISTOBAL Administration Piperacillin Sod/Tazobactam Sod 50 mls @ 100 mls/hr 11/04/16 16:45 11/08/16 17: 20 Zosyn 3.375 Gm Iv Premix IVPB 100 mls/hr Q6H CRISTOBAL Administration Diltiazem HCl 125 mg/ Sodium 125 mls @ 5 mls/hr 11/05/16 22:00 11/08/16 10:30 Chloride IV 0 mg/hr .Q24H CRISTOBAL Titration Protocol 5 MG/HR Propofol 100 mls @ 3.493 mls/hr 11/08/16 08:29 11/08/16 17:22 Diprivan IV 20 mcg/kg/min .Q24H PRN Titration TITRATE PER MD ORDER Protocol 5 MCG/KG/MIN Sodium Chloride 1,000 mls @ 100 mls/hr 11/08/16 10:15 11/08/16 10:56 Sodium Chloride 0.45% IV 100 mls/hr .Q10H CRISTOBAL Administration Insulin Human Regular 0 unit 11/08/16 18:00 11/08/16 17:34 Novolin R SC 4 unit Q6H CRISTOBAL Administration Methimazole 5 mg 11/07/16 10:00 11/08/16 17:21 Tapazole PO 5 mg TID CRISTOBAL Administration Metoprolol Tartrate 5 mg 11/04/16 19:45 11/08/16 14:00 Lopressor IVP 5 mg Q6H CRISTOBAL Administration Nystatin 0 ea 11/04/16 18:00 11/08/16 17:21 Mycostatin Cream TOP 1 units TID CRISTOBAL Administration Pantoprazole Sodium 40 mg 11/04/16 16:45 11/08/16 09:58 Protonix Inj IVP 40 mg DAILY CRISTOBAL Administration - Patient Studies Lab Studies: Lab Studies 11/08/16 11/08/16 11/08/16 Range/Units 17:30 12:19 09:34 WBC (4.8-10.8) K/uL RBC (3.80-5.20) Mil/uL Hgb (11.0-16.0) g/dL Hct (34.0-47.0) % MCV (81.0-99.0) fL MCH (27.0-31.0) pg MCHC (33.0-37.0) g/dL RDW (11.5-14.5) % Plt Count (130-400) K/uL MPV (7.2-11.7) fL Neut % (Auto) (50.0-75.0) % Lymph % (Auto) (20.0-40.0) % Curry % (Auto) (0.0-10.0) % Eos % (Auto) (0.0-4.0) % Baso % (Auto) (0.0-2.0) % Neut # (1.8-7.0) K/uL Lymph # (1.0-4.3) K/uL Curry # (0.0-0.8) K/uL Eos # (0.0-0.7) K/uL Baso # (0.0-0.2) K/uL Neutrophils % (Manual) (50-75) % Band Neutrophils % (0-2) % Lymphocytes % (Manual) (20-40) % Reactive Lymphs % (0-0) % Monocytes % (Manual) (0-10) % Platelet Estimate (NORMAL) Anisocytosis (manual) Puncture Site Rr pCO2 65 H (35-45) mm/Hg pO2 345 H (80-100) mm/Hg HCO3 29.3 H (21-28) mmol/L ABG pH 7.32 L (7.35-7.45) ABG Total CO2 35.5 H (22-28) mmol/L ABG O2 Saturation 99.9 H (95-98) % ABG Base Excess 5.6 H (-2.0-3.0) mmol/L ABG Hemoglobin 12.1 (11.7-17.4) g/dL ABG Carboxyhemoglobin 2.0 H (0.5-1.5) % POC ABG HHb (Measured) 0.1 (0.0-5.0) % ABG Methemoglobin 1.4 (0.0-3.0) % Chaz Test Ps A-a O2 Difference 287.0 mm/Hg Respiratory Index 0.8 Hgb O2 Saturation 96.5 (95.0-98.0) % Liter Flow Mechanical Rate 16 FiO2 100.0 % Tidal Volume 500 PEEP 5 Inspiratory BiPAP Expiratory BiPAP Sodium (132-148) mmol/L Potassium (3.6-5.2) mmol/L Chloride (98-107) mmol/L Carbon Dioxide (22-30) mmol/L Anion Gap (10-20) BUN (7-17) mg/dL Creatinine (0.7-1.2) MG/DL Est GFR ( Amer) Est GFR (Non-Af Amer) POC Glucose (mg/dL) 241 H 286 H (65-110) mg/dL Random Glucose (65-105) mg/dL Hemoglobin A1c (4.2-6.5) % Calcium (8.6-10.4) mg/dl Phosphorus (2.5-4.5) mg/dL Magnesium (1.6-2.3) mg/dL Total Bilirubin (0.2-1.3) mg/dL Direct Bilirubin (0.0-0.4) mg/dL AST (14-36) U/L ALT (9-52) U/L Alkaline Phosphatase (38-126) U/L Total Protein (6.3-8.3) g/dL Albumin (3.5-5.0) g/dL Globulin (2.2-3.9) gm/dL Albumin/Globulin Ratio (1.0-2.1) Triglycerides (0-149) mg/dL Cholesterol (0-199) mg/dL LDL Cholesterol Direct (0-129) mg/dL HDL Cholesterol (30-70) mg/dL 11/08/16 11/08/16 11/08/16 Range/Units 07:31 05:53 05:12 WBC 7.6 (4.8-10.8) K/uL RBC 4.49 (3.80-5.20) Mil/uL Hgb 13.0 (11.0-16.0) g/dL Hct 41.5 (34.0-47.0) % MCV 92.3 (81.0-99.0) fL MCH 29.0 (27.0-31.0) pg MCHC 31.4 L (33.0-37.0) g/dL RDW 15.2 H (11.5-14.5) % Plt Count 146 (130-400) K/uL MPV 9.0 (7.2-11.7) fL Neut % (Auto) 81.6 H (50.0-75.0) % Lymph % (Auto) 8.3 L (20.0-40.0) % Curry % (Auto) 9.1 (0.0-10.0) % Eos % (Auto) 0.4 (0.0-4.0) % Baso % (Auto) 0.6 (0.0-2.0) % Neut # 6.2 (1.8-7.0) K/uL Lymph # 0.6 L (1.0-4.3) K/uL Curry # 0.7 (0.0-0.8) K/uL Eos # 0.0 (0.0-0.7) K/uL Baso # 0.0 (0.0-0.2) K/uL Neutrophils % (Manual) 85 H (50-75) % Band Neutrophils % 3 H (0-2) % Lymphocytes % (Manual) 6 L (20-40) % Reactive Lymphs % 1 H (0-0) % Monocytes % (Manual) 5 (0-10) % Platelet Estimate Normal (NORMAL) Anisocytosis (manual) Slight Puncture Site Rr pCO2 46 H (35-45) mm/Hg pO2 109 H (80-100) mm/Hg HCO3 24.5 (21-28) mmol/L ABG pH 7.35 (7.35-7.45) ABG Total CO2 26.8 (22-28) mmol/L ABG O2 Saturation 100.1 H (95-98) % ABG Base Excess -0.5 (-2.0-3.0) mmol/L ABG Hemoglobin 10.8 L (11.7-17.4) g/dL ABG Carboxyhemoglobin 3.0 H (0.5-1.5) % POC ABG HHb (Measured) -0.1 L (0.0-5.0) % ABG Methemoglobin 1.5 (0.0-3.0) % Chaz Test Pos A-a O2 Difference 119.0 mm/Hg Respiratory Index 1.1 Hgb O2 Saturation 95.6 (95.0-98.0) % Liter Flow Mechanical Rate FiO2 40.0 % Tidal Volume PEEP Inspiratory BiPAP 18 Expiratory BiPAP 5 Sodium 151 H (132-148) mmol/L Potassium 3.3 L (3.6-5.2) mmol/L Chloride 105 (98-107) mmol/L Carbon Dioxide 30 (22-30) mmol/L Anion Gap 19 (10-20) BUN 43 H (7-17) mg/dL Creatinine 0.8 (0.7-1.2) MG/DL Est GFR ( Amer) > 60 Est GFR (Non-Af Amer) > 60 POC Glucose (mg/dL) 187 H (65-110) mg/dL Random Glucose 230 H (65-105) mg/dL Hemoglobin A1c 14.3 H D (4.2-6.5) % Calcium 8.9 (8.6-10.4) mg/dl Phosphorus 2.4 L (2.5-4.5) mg/dL Magnesium 2.2 (1.6-2.3) mg/dL Total Bilirubin 1.7 H (0.2-1.3) mg/dL Direct Bilirubin 0.8 H (0.0-0.4) mg/dL AST 54 H (14-36) U/L ALT 101 H (9-52) U/L Alkaline Phosphatase 139 H (38-126) U/L Total Protein 5.4 L (6.3-8.3) g/dL Albumin 2.9 L (3.5-5.0) g/dL Globulin 2.5 (2.2-3.9) gm/dL Albumin/Globulin Ratio 1.2 (1.0-2.1) Triglycerides 154 H D (0-149) mg/dL Cholesterol 108 (0-199) mg/dL LDL Cholesterol Direct 71 (0-129) mg/dL HDL Cholesterol 17 L (30-70) mg/dL 11/07/16 11/07/16 Range/Units 21:15 17:35 WBC (4.8-10.8) K/uL RBC (3.80-5.20) Mil/uL Hgb (11.0-16.0) g/dL Hct (34.0-47.0) % MCV (81.0-99.0) fL MCH (27.0-31.0) pg MCHC (33.0-37.0) g/dL RDW (11.5-14.5) % Plt Count (130-400) K/uL MPV (7.2-11.7) fL Neut % (Auto) (50.0-75.0) % Lymph % (Auto) (20.0-40.0) % Curry % (Auto) (0.0-10.0) % Eos % (Auto) (0.0-4.0) % Baso % (Auto) (0.0-2.0) % Neut # (1.8-7.0) K/uL Lymph # (1.0-4.3) K/uL Curry # (0.0-0.8) K/uL Eos # (0.0-0.7) K/uL Baso # (0.0-0.2) K/uL Neutrophils % (Manual) (50-75) % Band Neutrophils % (0-2) % Lymphocytes % (Manual) (20-40) % Reactive Lymphs % (0-0) % Monocytes % (Manual) (0-10) % Platelet Estimate (NORMAL) Anisocytosis (manual) Puncture Site Rra pCO2 56 H (35-45) mm/Hg pO2 97 (80-100) mm/Hg HCO3 27.3 (21-28) mmol/L ABG pH 7.34 L (7.35-7.45) ABG Total CO2 31.9 H (22-28) mmol/L ABG O2 Saturation 99.1 H (95-98) % ABG Base Excess 3.1 H (-2.0-3.0) mmol/L ABG Hemoglobin 12.9 (11.7-17.4) g/dL ABG Carboxyhemoglobin 2.2 H (0.5-1.5) % POC ABG HHb (Measured) 0.9 (0.0-5.0) % ABG Methemoglobin 0.9 (0.0-3.0) % Chaz Test Pos A-a O2 Difference 118.0 mm/Hg Respiratory Index 1.2 Hgb O2 Saturation 96.0 (95.0-98.0) % Liter Flow 40.0 Mechanical Rate FiO2 40.0 % Tidal Volume PEEP Inspiratory BiPAP 18 Expiratory BiPAP 5 Sodium (132-148) mmol/L Potassium (3.6-5.2) mmol/L Chloride (98-107) mmol/L Carbon Dioxide (22-30) mmol/L Anion Gap (10-20) BUN (7-17) mg/dL Creatinine (0.7-1.2) MG/DL Est GFR ( Amer) Est GFR (Non-Af Amer) POC Glucose (mg/dL) 183 H (65-110) mg/dL Random Glucose (65-105) mg/dL Hemoglobin A1c (4.2-6.5) % Calcium (8.6-10.4) mg/dl Phosphorus (2.5-4.5) mg/dL Magnesium (1.6-2.3) mg/dL Total Bilirubin (0.2-1.3) mg/dL Direct Bilirubin (0.0-0.4) mg/dL AST (14-36) U/L ALT (9-52) U/L Alkaline Phosphatase (38-126) U/L Total Protein (6.3-8.3) g/dL Albumin (3.5-5.0) g/dL Globulin (2.2-3.9) gm/dL Albumin/Globulin Ratio (1.0-2.1) Triglycerides (0-149) mg/dL Cholesterol (0-199) mg/dL LDL Cholesterol Direct (0-129) mg/dL HDL Cholesterol (30-70) mg/dL Laboratory Results - last 24 hr 11/07/16 11/07/16 11/08/16 17:35 21:15 05:12 WBC RBC Hgb Hct MCV MCH MCHC RDW Plt Count MPV Neut % (Auto) Lymph % (Auto) Curry % (Auto) Eos % (Auto) Baso % (Auto) Neut # Lymph # Curry # Eos # Baso # Neutrophils % (Manual) Band Neutrophils % Lymphocytes % (Manual) Reactive Lymphs % Monocytes % (Manual) Platelet Estimate Anisocytosis (manual) Puncture Site Rra Rr pCO2 56 H 46 H pO2 97 109 H HCO3 27.3 24.5 ABG pH 7.34 L 7.35 ABG Total CO2 31.9 H 26.8 ABG O2 Saturation 99.1 H 100.1 H ABG Base Excess 3.1 H -0.5 ABG Hemoglobin 12.9 10.8 L ABG Carboxyhemoglobin 2.2 H 3.0 H POC ABG HHb (Measured) 0.9 -0.1 L ABG Methemoglobin 0.9 1.5 Chaz Test Pos Pos A-a O2 Difference 118.0 119.0 Respiratory Index 1.2 1.1 Hgb O2 Saturation 96.0 95.6 Liter Flow 40.0 Mechanical Rate FiO2 40.0 40.0 Tidal Volume PEEP Inspiratory BiPAP 18 18 Expiratory BiPAP 5 5 Sodium Potassium Chloride Carbon Dioxide Anion Gap BUN Creatinine Est GFR ( Amer) Est GFR (Non-Af Amer) POC Glucose (mg/dL) 183 H Random Glucose Hemoglobin A1c Calcium Phosphorus Magnesium Total Bilirubin Direct Bilirubin AST ALT Alkaline Phosphatase Total Protein Albumin Globulin Albumin/Globulin Ratio Triglycerides Cholesterol LDL Cholesterol Direct HDL Cholesterol 11/08/16 11/08/16 11/08/16 05:53 07:31 09:34 WBC 7.6 RBC 4.49 Hgb 13.0 Hct 41.5 MCV 92.3 MCH 29.0 MCHC 31.4 L RDW 15.2 H Plt Count 146 MPV 9.0 Neut % (Auto) 81.6 H Lymph % (Auto) 8.3 L Curry % (Auto) 9.1 Eos % (Auto) 0.4 Baso % (Auto) 0.6 Neut # 6.2 Lymph # 0.6 L Curry # 0.7 Eos # 0.0 Baso # 0.0 Neutrophils % (Manual) 85 H Band Neutrophils % 3 H Lymphocytes % (Manual) 6 L Reactive Lymphs % 1 H Monocytes % (Manual) 5 Platelet Estimate Normal Anisocytosis (manual) Slight Puncture Site Rr pCO2 65 H pO2 345 H HCO3 29.3 H ABG pH 7.32 L ABG Total CO2 35.5 H ABG O2 Saturation 99.9 H ABG Base Excess 5.6 H ABG Hemoglobin 12.1 ABG Carboxyhemoglobin 2.0 H POC ABG HHb (Measured) 0.1 ABG Methemoglobin 1.4 Chaz Test Ps A-a O2 Difference 287.0 Respiratory Index 0.8 Hgb O2 Saturation 96.5 Liter Flow Mechanical Rate 16 FiO2 100.0 Tidal Volume 500 PEEP 5 Inspiratory BiPAP Expiratory BiPAP Sodium 151 H Potassium 3.3 L Chloride 105 Carbon Dioxide 30 Anion Gap 19 BUN 43 H Creatinine 0.8 Est GFR ( Amer) > 60 Est GFR (Non-Af Amer) > 60 POC Glucose (mg/dL) 187 H Random Glucose 230 H Hemoglobin A1c 14.3 H D Calcium 8.9 Phosphorus 2.4 L Magnesium 2.2 Total Bilirubin 1.6 H Direct Bilirubin 0.8 H AST 52 H D ALT 93 H D Alkaline Phosphatase 135 H D Total Protein 5.4 L Albumin 2.8 L Globulin 2.6 Albumin/Globulin Ratio 1.1 Triglycerides 154 H D Cholesterol 108 LDL Cholesterol Direct 71 HDL Cholesterol 17 L 11/08/16 11/08/16 12:19 17:30 WBC RBC Hgb Hct MCV MCH MCHC RDW Plt Count MPV Neut % (Auto) Lymph % (Auto) Curry % (Auto) Eos % (Auto) Baso % (Auto) Neut # Lymph # Curry # Eos # Baso # Neutrophils % (Manual) Band Neutrophils % Lymphocytes % (Manual) Reactive Lymphs % Monocytes % (Manual) Platelet Estimate Anisocytosis (manual) Puncture Site pCO2 pO2 HCO3 ABG pH ABG Total CO2 ABG O2 Saturation ABG Base Excess ABG Hemoglobin ABG Carboxyhemoglobin POC ABG HHb (Measured) ABG Methemoglobin Chaz Test A-a O2 Difference Respiratory Index Hgb O2 Saturation Liter Flow Mechanical Rate FiO2 Tidal Volume PEEP Inspiratory BiPAP Expiratory BiPAP Sodium Potassium Chloride Carbon Dioxide Anion Gap BUN Creatinine Est GFR ( Amer) Est GFR (Non-Af Amer) POC Glucose (mg/dL) 286 H 241 H Random Glucose Hemoglobin A1c Calcium Phosphorus Magnesium Total Bilirubin Direct Bilirubin AST ALT Alkaline Phosphatase Total Protein Albumin Globulin Albumin/Globulin Ratio Triglycerides Cholesterol LDL Cholesterol Direct HDL Cholesterol Assessment/Plan (1) Atrial fibrillation with rapid ventricular response Current Visit: Yes Status: Acute Comment: taper off Cardizem drip Continue Lopressor and start Cardizem through NG tube Continue anticoagulation and aspirin Check echocardiogram (2) Bilateral lower leg cellulitis Current Visit: Yes Status: Acute Comment: Continue antibiotics and follow up culture and sensitivity (3) Hyperosmolar non-ketotic state in patient with type 2 diabetes mellitus Current Visit: Yes Status: Acute (4) Respiratory failure with hypoxia Current Visit: Yes Status: Acute Attending/Attestation - Attestation I have personally seen and examined this patient.: Yes I have fully participated in the care of the patient.: Yes I have reviewed all pertinent clinical information: Yes Notes (Text): 11/08/16 17:37 Patient seen and examined in the intensive care unit. Case discussed with all stress in the morning rounds. Patient intubated and put on ventilatory support for increasing respiratory distress and lethargy. Thick chunk of mucous plug removed from the throat TLC Catheter inserted in right internal jugular vein under aseptic conditions and local anesthesia without any complications Continue antibiotics, bronchodilators Follow-up culture and sensitivity Start NG tube feeding taper off Cardizem drip. Continue Lopressor and Lovenox
--- NOTE | 2016-11-08 18:15 | CP.PCM.PN ---
Subjective - Date & Time of Evaluation Date of Evaluation: 11/08/16 Time of Evaluation: 18:12 - Subjective Subjective: Got intubated due to respiratory distress, A-fib rate is controlled. Objective - Vital Signs/Intake and Output Vital Signs (last 24 hours): Temp Pulse Resp BP Pulse Ox 97.8 F 89 21 123/62 99 11/08/16 16:00 11/08/16 17:00 11/08/16 17:00 11/08/16 17:00 11/08/16 17:00 Intake and Output: 11/08/16 11/08/16 06:59 18:59 Intake Total 260 527.5 Output Total 1160 Balance -900 527.5 - Medications Medications: Current Medications Aspirin (Aspirin Chewable) 81 mg PO DAILY [facility] Last Admin: 11/08/16 11:00 Dose: 81 mg Enoxaparin Sodium (Lovenox) 110 mg SC Q12 [facility] Last Admin: 11/08/16 12:00 Dose: 110 mg Furosemide (Lasix) 40 mg IVP DAILY [facility] Last Admin: 11/08/16 09:59 Dose: 40 mg Piperacillin Sod/Tazobactam Sod (Zosyn 3.375 Gm Iv Premix) 50 mls @ 100 mls/hr IVPB Q6H [facility] Last Admin: 11/08/16 17:20 Dose: 100 mls/hr Diltiazem HCl 125 mg/ Sodium (Chloride) 125 mls @ 5 mls/hr IV .Q24H [facility]; 5 MG/ HR PRN Reason: Protocol Last Titration: 11/08/16 10:30 Dose: 0 mg/hr Propofol (Diprivan) 100 mls @ 3.493 mls/hr IV .Q24H PRN; Protocol; 5 MCG/KG/MIN PRN Reason: TITRATE PER MD ORDER Last Titration: 11/08/16 17:22 Dose: 20 mcg/kg/min Sodium Chloride (Sodium Chloride 0.45%) 1,000 mls @ 100 mls/hr IV .Q10H [facility] Last Admin: 11/08/16 10:56 Dose: 100 mls/hr Insulin Human Regular (Novolin R) 0 unit SC Q6H [facility] Last Admin: 11/08/16 17:34 Dose: 4 unit Methimazole (Tapazole) 5 mg PO TID [facility] Last Admin: 11/08/16 17:21 Dose: 5 mg Metoprolol Tartrate (Lopressor) 5 mg IVP Q6H [facility] Last Admin: 11/08/16 14:00 Dose: 5 mg Nystatin (Mycostatin Cream) 0 ea TOP TID [facility] Last Admin: 11/08/16 17:21 Dose: 1 units Pantoprazole Sodium (Protonix Inj) 40 mg IVP DAILY [facility] Last Admin: 11/08/16 09:58 Dose: 40 mg - Labs Labs: 11/08/16 05:53 11/08/16 05:53 PT 14.3 SECONDS (9.7-12.2) H 11/04/16 12:14 INR 1.3 11/04/16 12:14 APTT 21 SECONDS (21-34) 11/04/16 12:14 - Head Exam Head Exam: NORMOCEPHALIC - Neck Exam Neck Exam: Normal Inspection - Respiratory Exam Additional comments: Intubated and sedated. - Cardiovascular Exam Cardiovascular Exam: Irregular Rhythm Assessment and Plan (1) Atrial fibrillation with rapid ventricular response Assessment & Plan: Rate is controlled, need to treat underlying cause of distress. May use PRN cardizem infusion. Status: Acute (2) Bilateral lower leg cellulitis Assessment & Plan: Diurese as tolerated and maintain electrolyte balance. Status: Acute (3) CHF (congestive heart failure) Assessment & Plan: Diastolic dysfunction , fluid restriction. diuresis and electrolyte balance. Status: Acute
[2016-11-09] MEDS: (Novolin R) Insulin Human Regular 100 units/ml vial SC SCH ×4 (00:46→17:17)
[2016-11-09] MEDS: Metoprolol 1 mg/ml Inj IVP SCH ×4 (00:52→20:15)
[2016-11-09] MEDS: Piperacill/Tazo 3.375gm in Dex 50 ML IVPB SCH ×4 (04:30→22:00)
[2016-11-09 04:42] LABS: ABG ALLEN TEST POS; ABG MECHANICAL RATE 16; ARTERIAL BLOOD HGB O2 SAT 96.7 % (95.0-98.0); ATERIAL BLOOD GAS PEEP 5; CARBOXYHEMOGLOBIN 1.8 % (0.5-1.5); DRAW SITE RR; HHB 0.3 % (0.0-5.0); METHEMOGLOBIN 1.1 % (0.0-3.0)
[2016-11-09] MEDS: Sodium Chloride 0.45% 1,000 ML IV SCH ×2 (06:44→17:09)
[2016-11-09 06:51] LABS: CHLORIDE 106 mmol/L (98-107); SODIUM 153 mmol/L (132-148)
[2016-11-09 06:52] LABS: POTASSIUM 2.9 mmol/L (3.6-5.2)
[2016-11-09 06:53] LABS: GFR AFRICAN-AMERICAN > 60
[2016-11-09 06:54] LABS: ALKALINE PHOSPHATASE 117 U/L (38-126); ALT/SGPT 77 U/L (9-52); AST/SGOT 34 U/L (14-36); BILIRUBIN,TOTAL 1.5 mg/dL (0.2-1.3); BLOOD UREA NITROGEN 38 mg/dL (7-17); CARBON DIOXIDE 35 mmol/L (22-30); GLUCOSE,RANDOM 218 mg/dL (65-105); PHOSPHOROUS 1.8 mg/dL (2.5-4.5); TOTAL PROTEIN 5.1 g/dL (6.3-8.3)
[2016-11-09 06:55] LABS: CALCIUM 8.3 mg/dl (8.6-10.4); MAGNESIUM 2.2 mg/dL (1.6-2.3)
[2016-11-09 07:11] LABS: BASO % 0.1 % (0.0-2.0); EOS # 0.3 K/uL (0.0-0.7); EOS % 4.5 % (0.0-4.0); HEMATOCRIT 40.1 % (34.0-47.0); LYMPH # 1.1 K/uL (1.0-4.3); LYMPH % 18.5 % (20.0-40.0); MEAN CELL VOLUME 91.7 fL (81.0-99.0); MEAN CORPUSCULAR HEMOGLOBIN 29.5 pg (27.0-31.0); MEAN CORPUSCULAR HGB CONC 32.1 g/dL (33.0-37.0); MEAN PLATELET VOLUME 8.9 fL (7.2-11.7); MONO # 0.7 K/uL (0.0-0.8); MONO % 11.4 % (0.0-10.0); RED CELL DISTRIBUTION WIDTH 15.3 % (11.5-14.5); WHITE BLOOD COUNT 5.8 K/uL (4.8-10.8)
[2016-11-09] MEDS ORDERED: Potassium Phosphate 15 MMOLE in Sodium Chloride 0.9% 250 ML IVPB ONE (08:02)
--- NOTE | 2016-11-09 08:05 | CP.CCUPN ---
<Eloina Allen - Last Filed: 11/09/16 13:21> CCU Subjective - Physician Review Subjective (Free Text): 11/08/16 13:06 Pt seen in mild distress requiring intubation. Two large pieces of dried mucus were extracted from the patient's throat obstructing vocal cords. Patient intubated. TLC line was also placed to ensure better IV access. As there is no power of erisa attorney or legal guardian, an administrative consent was obtained for central line. An ROS could not be obtained at this time because patient is intubated and sedated. 11/09/16 13:15 Patient seen at beside intubated and sedated. GCS 8T (FiO2 60 PEEP 5 VT 500 RR 16). No acute events overnight per nursing. A fib is rate controlled. Patient is stable. New vent settings after rounds PRVC (FiO2 60, PEEP 5, RR 12 VT 500). ROS couldn't be obtained because patient is intubated and sedated. CCU Objective - Vital Signs / Intake & Output Intake and Output (Last 8hrs): Intake & Output 11/08/16 11/09/16 11/09/16 22:59 06:59 14:59 Intake Total 787 992 Output Total 610 480 Balance 177 512 Weight 245 lb Intake: Intake, IV Amount 707 912 Left Forearm 20 Right Internal Jugular 111 112 Right Distal Port 576 800 Internal Jugular Oral 80 80 Output: Urine 610 480 Urethral ([place]) 610 480 - Physical Exam Head: Positive for: Atraumatic, Normocephalic Pupils: Positive for: PERRL. Negative for: Sluggish, Non-Reactive Extroacular Muscles: Positive for: EOMI. Negative for: Gaze Palsy Conjunctiva: Positive for: Normal. Negative for: Injected, Icteric Neck: Positive for: Normal Range of Motion, Trachea Midline. Negative for: Meningeal Signs, MIDLINE TENDERNESS, Paraspinal Tenderness, JVD, Lymphadenopathy , Bruit, Other Respiratory/Chest: Positive for: Wheezes, Decreased Breath Sounds, Other ( intubated). Negative for: Rales Cardiovascular: Positive for: Irregular Rhythm, Peripheal Pulses Present, Tachycardic. Negative for: Murmurs, Normal S1, S2 Abdomen: Negative for: Tenderness, Distention Upper Extremity: Positive for: Normal Inspection Lower Extremity: Positive for: Edema Neurological: Negative for: Speech Normal Psychiatric: Negative for: Alert, Oriented x 3 - Medications Active Medications: Active Medications Generic Name Dose Route Start Last Admin Trade Name Freq PRN Reason Stop Dose Admin Aspirin 81 mg 11/07/16 10:00 11/08/16 11:00 Aspirin Chewable PO 81 mg DAILY CRISTOBAL Administration Enoxaparin Sodium 110 mg 11/07/16 10:00 11/08/16 22:59 Lovenox SC 110 mg Q12 CRISTOBAL Administration Furosemide 40 mg 11/07/16 10:00 11/08/16 09:59 Lasix IVP 40 mg DAILY CRISTOBAL Administration Piperacillin Sod/Tazobactam Sod 50 mls @ 100 mls/hr 11/04/16 16:45 11/09/16 04: 30 Zosyn 3.375 Gm Iv Premix IVPB 100 mls/hr Q6H CRISTOBAL Administration Diltiazem HCl 125 mg/ Sodium 125 mls @ 5 mls/hr 11/05/16 22:00 11/08/16 22:57 Chloride IV Not Given .Q24H CRISTOBAL Protocol 5 MG/HR Propofol 100 mls @ 3.493 mls/hr 11/08/16 08:29 11/09/16 06:46 Diprivan IV 14 mls/hr .Q24H PRN Administration TITRATE PER MD ORDER Protocol 5 MCG/KG/MIN Sodium Chloride 1,000 mls @ 100 mls/hr 11/08/16 10:15 11/09/16 06:44 Sodium Chloride 0.45% IV 100 mls/hr .Q10H CRISTOBAL Administration Potassium Chloride 100 mls @ 50 mls/hr 11/09/16 08:00 Potassium Chloride 20 Meq/100 Ml IVPB 11/09/16 13:59 Q2H CRISTOBAL Potassium Phosphate 15 mmole/ 255 mls @ 42.5 mls/hr 11/09/16 08:02 Sodium Chloride IVPB 11/09/16 14:01 ONCE ONE Insulin Human Regular 0 unit 11/08/16 18:00 11/09/16 06:37 Novolin R SC 4 unit Q6H CRISTOBAL Administration Methimazole 5 mg 11/07/16 10:00 11/08/16 17:21 Tapazole PO 5 mg TID CRISTOBAL Administration Metoprolol Tartrate 5 mg 11/04/16 19:45 11/09/16 00:52 Lopressor IVP 5 mg Q6H CRISTOBAL Administration Nystatin 0 ea 11/04/16 18:00 11/08/16 17:21 Mycostatin Cream TOP 1 units TID CRISTOBAL Administration Pantoprazole Sodium 40 mg 11/04/16 16:45 11/08/16 09:58 Protonix Inj IVP 40 mg DAILY CRISTOBAL Administration - Patient Studies Lab Studies: Lab Studies 11/09/16 11/09/16 11/09/16 Range/Units 06:30 06:05 04:25 WBC 5.8 (4.8-10.8) K/uL RBC 4.37 (3.80-5.20) Mil/uL Hgb 12.9 (11.0-16.0) g/dL Hct 40.1 (34.0-47.0) % MCV 91.7 (81.0-99.0) fL MCH 29.5 (27.0-31.0) pg MCHC 32.1 L (33.0-37.0) g/dL RDW 15.3 H (11.5-14.5) % Plt Count 125 L D (130-400) K/uL MPV 8.9 (7.2-11.7) fL Neut % (Auto) 65.5 (50.0-75.0) % Lymph % (Auto) 18.5 L (20.0-40.0) % Churchill % (Auto) 11.4 H (0.0-10.0) % Eos % (Auto) 4.5 H (0.0-4.0) % Baso % (Auto) 0.1 (0.0-2.0) % Neut # 3.8 (1.8-7.0) K/uL Lymph # 1.1 (1.0-4.3) K/uL Churchill # 0.7 (0.0-0.8) K/uL Eos # 0.3 (0.0-0.7) K/uL Baso # 0.0 (0.0-0.2) K/uL Neutrophils % (Manual) (50-75) % Band Neutrophils % (0-2) % Lymphocytes % (Manual) (20-40) % Reactive Lymphs % (0-0) % Monocytes % (Manual) (0-10) % Platelet Estimate (NORMAL) Anisocytosis (manual) Puncture Site Rr pCO2 44 (35-45) mm/Hg pO2 126 H (80-100) mm/Hg HCO3 36.2 H (21-28) mmol/L ABG pH 7.55 H (7.35-7.45) ABG Total CO2 39.9 H (22-28) mmol/L ABG O2 Saturation 99.7 H (95-98) % ABG Base Excess 14.5 H (-2.0-3.0) mmol/L ABG Hemoglobin 11.9 (11.7-17.4) g/dL ABG Carboxyhemoglobin 1.8 H (0.5-1.5) % POC ABG HHb (Measured) 0.3 (0.0-5.0) % ABG Methemoglobin 1.1 (0.0-3.0) % Chaz Test Pos A-a O2 Difference 247.0 mm/Hg Respiratory Index 2.0 Hgb O2 Saturation 96.7 (95.0-98.0) % Mechanical Rate 16 FiO2 60.0 % Tidal Volume 500 PEEP 5 Sodium 153 H (132-148) mmol/L Potassium 2.9 L (3.6-5.2) mmol/L Chloride 106 (98-107) mmol/L Carbon Dioxide 35 H (22-30) mmol/L Anion Gap 15 (10-20) BUN 38 H (7-17) mg/dL Creatinine 0.6 L (0.7-1.2) MG/DL Est GFR ( Amer) > 60 Est GFR (Non-Af Amer) > 60 POC Glucose (mg/dL) 215 H (65-110) mg/dL Random Glucose 218 H (65-105) mg/dL Hemoglobin A1c (4.2-6.5) % Calcium 8.3 L (8.6-10.4) mg/dl Phosphorus 1.8 L (2.5-4.5) mg/dL Magnesium 2.2 (1.6-2.3) mg/dL Total Bilirubin 1.5 H (0.2-1.3) mg/dL AST 34 (14-36) U/L ALT 77 H D (9-52) U/L Alkaline Phosphatase 117 (38-126) U/L Total Protein 5.1 L (6.3-8.3) g/dL Albumin 2.6 L (3.5-5.0) g/dL Globulin 2.5 (2.2-3.9) gm/dL Albumin/Globulin Ratio 1.0 (1.0-2.1) 11/08/16 11/08/16 11/08/16 Range/Units 23:56 17:30 12:19 WBC (4.8-10.8) K/uL RBC (3.80-5.20) Mil/uL Hgb (11.0-16.0) g/dL Hct (34.0-47.0) % MCV (81.0-99.0) fL MCH (27.0-31.0) pg MCHC (33.0-37.0) g/dL RDW (11.5-14.5) % Plt Count (130-400) K/uL MPV (7.2-11.7) fL Neut % (Auto) (50.0-75.0) % Lymph % (Auto) (20.0-40.0) % Churchill % (Auto) (0.0-10.0) % Eos % (Auto) (0.0-4.0) % Baso % (Auto) (0.0-2.0) % Neut # (1.8-7.0) K/uL Lymph # (1.0-4.3) K/uL Churchill # (0.0-0.8) K/uL Eos # (0.0-0.7) K/uL Baso # (0.0-0.2) K/uL Neutrophils % (Manual) (50-75) % Band Neutrophils % (0-2) % Lymphocytes % (Manual) (20-40) % Reactive Lymphs % (0-0) % Monocytes % (Manual) (0-10) % Platelet Estimate (NORMAL) Anisocytosis (manual) Puncture Site pCO2 (35-45) mm/Hg pO2 (80-100) mm/Hg HCO3 (21-28) mmol/L ABG pH (7.35-7.45) ABG Total CO2 (22-28) mmol/L ABG O2 Saturation (95-98) % ABG Base Excess (-2.0-3.0) mmol/L ABG Hemoglobin (11.7-17.4) g/dL ABG Carboxyhemoglobin (0.5-1.5) % POC ABG HHb (Measured) (0.0-5.0) % ABG Methemoglobin (0.0-3.0) % Chaz Test A-a O2 Difference mm/Hg Respiratory Index Hgb O2 Saturation (95.0-98.0) % Mechanical Rate FiO2 % Tidal Volume PEEP Sodium (132-148) mmol/L Potassium (3.6-5.2) mmol/L Chloride (98-107) mmol/L Carbon Dioxide (22-30) mmol/L Anion Gap (10-20) BUN (7-17) mg/dL Creatinine (0.7-1.2) MG/DL Est GFR ( Amer) Est GFR (Non-Af Amer) POC Glucose (mg/dL) 246 H 241 H 286 H (65-110) mg/dL Random Glucose (65-105) mg/dL Hemoglobin A1c (4.2-6.5) % Calcium (8.6-10.4) mg/dl Phosphorus (2.5-4.5) mg/dL Magnesium (1.6-2.3) mg/dL Total Bilirubin (0.2-1.3) mg/dL AST (14-36) U/L ALT (9-52) U/L Alkaline Phosphatase (38-126) U/L Total Protein (6.3-8.3) g/dL Albumin (3.5-5.0) g/dL Globulin (2.2-3.9) gm/dL Albumin/Globulin Ratio (1.0-2.1) 11/08/16 11/08/16 Range/Units 09:34 05:53 WBC (4.8-10.8) K/uL RBC (3.80-5.20) Mil/uL Hgb (11.0-16.0) g/dL Hct (34.0-47.0) % MCV (81.0-99.0) fL MCH (27.0-31.0) pg MCHC (33.0-37.0) g/dL RDW (11.5-14.5) % Plt Count (130-400) K/uL MPV (7.2-11.7) fL Neut % (Auto) (50.0-75.0) % Lymph % (Auto) (20.0-40.0) % Churchill % (Auto) (0.0-10.0) % Eos % (Auto) (0.0-4.0) % Baso % (Auto) (0.0-2.0) % Neut # (1.8-7.0) K/uL Lymph # (1.0-4.3) K/uL Churchill # (0.0-0.8) K/uL Eos # (0.0-0.7) K/uL Baso # (0.0-0.2) K/uL Neutrophils % (Manual) 85 H (50-75) % Band Neutrophils % 3 H (0-2) % Lymphocytes % (Manual) 6 L (20-40) % Reactive Lymphs % 1 H (0-0) % Monocytes % (Manual) 5 (0-10) % Platelet Estimate Normal (NORMAL) Anisocytosis (manual) Slight Puncture Site Rr pCO2 65 H (35-45) mm/Hg pO2 345 H (80-100) mm/Hg HCO3 29.3 H (21-28) mmol/L ABG pH 7.32 L (7.35-7.45) ABG Total CO2 35.5 H (22-28) mmol/L ABG O2 Saturation 99.9 H (95-98) % ABG Base Excess 5.6 H (-2.0-3.0) mmol/L ABG Hemoglobin 12.1 (11.7-17.4) g/dL ABG Carboxyhemoglobin 2.0 H (0.5-1.5) % POC ABG HHb (Measured) 0.1 (0.0-5.0) % ABG Methemoglobin 1.4 (0.0-3.0) % Chaz Test Ps A-a O2 Difference 287.0 mm/Hg Respiratory Index 0.8 Hgb O2 Saturation 96.5 (95.0-98.0) % Mechanical Rate 16 FiO2 100.0 % Tidal Volume 500 PEEP 5 Sodium (132-148) mmol/L Potassium (3.6-5.2) mmol/L Chloride (98-107) mmol/L Carbon Dioxide (22-30) mmol/L Anion Gap (10-20) BUN (7-17) mg/dL Creatinine (0.7-1.2) MG/DL Est GFR ( Amer) Est GFR (Non-Af Amer) POC Glucose (mg/dL) (65-110) mg/dL Random Glucose (65-105) mg/dL Hemoglobin A1c 14.3 H D (4.2-6.5) % Calcium (8.6-10.4) mg/dl Phosphorus (2.5-4.5) mg/dL Magnesium (1.6-2.3) mg/dL Total Bilirubin (0.2-1.3) mg/dL AST (14-36) U/L ALT (9-52) U/L Alkaline Phosphatase (38-126) U/L Total Protein (6.3-8.3) g/dL Albumin (3.5-5.0) g/dL Globulin (2.2-3.9) gm/dL Albumin/Globulin Ratio (1.0-2.1) Laboratory Results - last 24 hr 11/08/16 11/08/16 11/08/16 05:53 09:34 12:19 WBC RBC Hgb Hct MCV MCH MCHC RDW Plt Count MPV Neut % (Auto) Lymph % (Auto) Churchill % (Auto) Eos % (Auto) Baso % (Auto) Neut # Lymph # Churchill # Eos # Baso # Neutrophils % (Manual) 85 H Band Neutrophils % 3 H Lymphocytes % (Manual) 6 L Reactive Lymphs % 1 H Monocytes % (Manual) 5 Platelet Estimate Normal Anisocytosis (manual) Slight Puncture Site Rr pCO2 65 H pO2 345 H HCO3 29.3 H ABG pH 7.32 L ABG Total CO2 35.5 H ABG O2 Saturation 99.9 H ABG Base Excess 5.6 H ABG Hemoglobin 12.1 ABG Carboxyhemoglobin 2.0 H POC ABG HHb (Measured) 0.1 ABG Methemoglobin 1.4 Chaz Test Ps A-a O2 Difference 287.0 Respiratory Index 0.8 Hgb O2 Saturation 96.5 Mechanical Rate 16 FiO2 100.0 Tidal Volume 500 PEEP 5 Sodium Potassium Chloride Carbon Dioxide Anion Gap BUN Creatinine Est GFR ( Amer) Est GFR (Non-Af Amer) POC Glucose (mg/dL) 286 H Random Glucose Hemoglobin A1c 14.3 H D Calcium Phosphorus Magnesium Total Bilirubin AST ALT Alkaline Phosphatase Total Protein Albumin Globulin Albumin/Globulin Ratio 11/08/16 11/08/16 11/09/16 17:30 23:56 04:25 WBC RBC Hgb Hct MCV MCH MCHC RDW Plt Count MPV Neut % (Auto) Lymph % (Auto) Churchill % (Auto) Eos % (Auto) Baso % (Auto) Neut # Lymph # Churchill # Eos # Baso # Neutrophils % (Manual) Band Neutrophils % Lymphocytes % (Manual) Reactive Lymphs % Monocytes % (Manual) Platelet Estimate Anisocytosis (manual) Puncture Site Rr pCO2 44 pO2 126 H HCO3 36.2 H ABG pH 7.55 H ABG Total CO2 39.9 H ABG O2 Saturation 99.7 H ABG Base Excess 14.5 H ABG Hemoglobin 11.9 ABG Carboxyhemoglobin 1.8 H POC ABG HHb (Measured) 0.3 ABG Methemoglobin 1.1 Chaz Test Pos A-a O2 Difference 247.0 Respiratory Index 2.0 Hgb O2 Saturation 96.7 Mechanical Rate 16 FiO2 60.0 Tidal Volume 500 PEEP 5 Sodium Potassium Chloride Carbon Dioxide Anion Gap BUN Creatinine Est GFR ( Amer) Est GFR (Non-Af Amer) POC Glucose (mg/dL) 241 H 246 H Random Glucose Hemoglobin A1c Calcium Phosphorus Magnesium Total Bilirubin AST ALT Alkaline Phosphatase Total Protein Albumin Globulin Albumin/Globulin Ratio 11/09/16 11/09/16 06:05 06:30 WBC 5.8 RBC 4.37 Hgb 12.9 Hct 40.1 MCV 91.7 MCH 29.5 MCHC 32.1 L RDW 15.3 H Plt Count 125 L D MPV 8.9 Neut % (Auto) 65.5 Lymph % (Auto) 18.5 L Churchill % (Auto) 11.4 H Eos % (Auto) 4.5 H Baso % (Auto) 0.1 Neut # 3.8 Lymph # 1.1 Churchill # 0.7 Eos # 0.3 Baso # 0.0 Neutrophils % (Manual) Band Neutrophils % Lymphocytes % (Manual) Reactive Lymphs % Monocytes % (Manual) Platelet Estimate Anisocytosis (manual) Puncture Site pCO2 pO2 HCO3 ABG pH ABG Total CO2 ABG O2 Saturation ABG Base Excess ABG Hemoglobin ABG Carboxyhemoglobin POC ABG HHb (Measured) ABG Methemoglobin Chaz Test A-a O2 Difference Respiratory Index Hgb O2 Saturation Mechanical Rate FiO2 Tidal Volume PEEP Sodium 153 H Potassium 2.9 L Chloride 106 Carbon Dioxide 35 H Anion Gap 15 BUN 38 H Creatinine 0.6 L Est GFR ( Amer) > 60 Est GFR (Non-Af Amer) > 60 POC Glucose (mg/dL) 215 H Random Glucose 218 H Hemoglobin A1c Calcium 8.3 L Phosphorus 1.8 L Magnesium 2.2 Total Bilirubin 1.5 H AST 34 ALT 77 H D Alkaline Phosphatase 117 Total Protein 5.1 L Albumin 2.6 L Globulin 2.5 Albumin/Globulin Ratio 1.0 Fingerstick Blood Sugar Results: 215 Review of Systems - Review of Systems Review of Systems: as noted in subjective Assessment/Plan - Assessment and Plan (Free Text) Assessment: Patient with past medical history of diabetes, HTN, hyperthyroidism, depression , anxiety, peripheral edema brought in by EMS with altered mental status and in rapid A-fib and hyperglycemia. Patient continues to be observed and managed in the ICU with improving glucose levels. Patient continues to have a-fib @ 95 bpm. Atrial fibrillation is rate controlled. Plan: Neuro: Altered mental status Neurochecks q4 11/06 CT Head: hypoattenuation of the left frontal region. No fracture, no hemorrhage, and no sinusitis. Propofol @ 3.493 cc/hr IV Q24H (5 mcg/kg/min) Cardio: Hx of a-fib- rate controlled Telemetry: 11/07: A-fib @ 90 bpm 11/04 NT Pro BNPL 9500 Imagin/20 Carotid doppler: preliminary report bilateral mild disease 11/07 Echocardiogram: EF 65%, calcified mitral valve chordae leaflets. 11/04 EKG: atrial fibrillation + RVR @ 153 bpm Metoprolol titrate 5 mg IVP Q6H Diltiazem 125 @ 5 cc/hr IV Q24H, 5 mg/hr Pulm: Maintain O2 Sat >92% ABG 11/09 pH 7.55, CO2 44, O2 36.2, HCO3 36.2 Metabolic alkalosis- dec RR to 12 11/08 pH 7.32 , CO2 65, O2 345, HCO3 29.3 11/07 pH 7.34, CO2 60, O2 142, HCO3 28.6 11/07 pH 7.30, CO2 55, O2 102, HCO3 24.7 VBG 11/04 pH 7.22, CO2 59, O2 45, HCO3 20.7, VBG O2 Sat 76.2 Imagin/22 CXR: F/U final read 11/08 CXR: no change in bilateral lower blobe pneumonia and pleural effusions. Worse on right. Right IJ and NG tube in correct place. 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 Suspect bilateral effusions. Central pulmonary vasculature is slightly increased. Findings represent mild chronic compensated pulmonary edema/ CHF 11/04 CXR: bilateral hilar enlargement. Interval removal of left sided PICC, mildly enlarged cardiomediastinal silhouette when compared to prior radiographs. Lateral PA radiograph recommended. 11/06 CT Abdomen/Pelvis: bilateral pleural effusions. Extensive adenopathy, thyroid lesions Endo: HHS v DKA Admitting Glucose level 1023 Hypokalemia - repleted Hemoglobin A1c - 14.3 Accucheck q4 Methimazole 5 mg PO TID 100 units Novolin R / NS 99cc IV 2 cc/hr GI: Tube Feeding goal rrates 50 cc per dietary and include free water flushes AST/ALT 52/93 ALP 135 ALP: 177 Daily CMP IVF NS @ 100 cc/hr : I/Os = 2089.12/1749 = 339.5 Monitor I/Os Renal: BUN/Cr: 38/0.6 (43/0.8 > 48/0.6) UA: pH 5.0, specific gravity 1.025, negative ketones, 3+ Glucose Monitor I/Os Hypokalemia (2.9) - repleted Hypernatremia (153) - free water flushes Hypophosphatemia (1.8) - repleted Heme: H&H: 12.9/40.1 (13.0/41.5 > 12.9/40.1) Daily CBC ID: WBC: 5.8 (12.3>10.2>7.6>5.8) Daily CBC Zosyn 3.375 gm 50 cc @ 100cc/hr Nystatin TOP TID MSK: Hx of Cellulitis and venous insufficiency on bilateral anterior tibias - contraindication for SCDs Prophylaxis: DVT: ASA 81 mg PO daily, Lovenox 110 mg SC Q12 SCD contraindication due to venous insufficiency and cellulitis of bilateral lower extremities GI: Protonix 40 mg IVP daily <Aki Calle - Last Filed: 11/09/16 14:55> CCU Objective - Vital Signs / Intake & Output Vital Signs (Last 4 hours): Vital Signs Temp Pulse Resp BP Pulse Ox 11/09/16 14:00 109 H 21 133/56 L 100 11/09/16 13:00 108 H 19 130/55 L 100 11/09/16 12:00 98.6 F 93 H 18 127/66 100 11/09/16 11:00 99 H 16 140/64 100 Intake and Output (Last 8hrs): Intake & Output 11/08/16 11/09/16 11/09/16 22:59 06:59 14:59 Intake Total 787 992 889.5 Output Total 610 480 Balance 177 512 889.5 Weight 245 lb Intake: Intake, IV Amount 707 912 749.5 Left Forearm 20 Right Internal Jugular 111 112 112 Right Distal Port 576 800 637.5 Internal Jugular Oral 80 80 140 Output: Urine 610 480 Urethral ([place]) 610 480 - Medications Active Medications: Active Medications Generic Name Dose Route Start Last Admin Trade Name Freq PRN Reason Stop Dose Admin Aspirin 81 mg 11/07/16 10:00 11/09/16 09:59 Aspirin Chewable PO 81 mg DAILY CRISTOBAL Administration Enoxaparin Sodium 110 mg 11/07/16 10:00 11/09/16 09:59 Lovenox SC 110 mg Q12 CRISTOBAL Administration Furosemide 40 mg 11/07/16 10:00 11/09/16 09:59 Lasix IVP 40 mg DAILY CRISTOBAL Administration Piperacillin Sod/Tazobactam Sod 50 mls @ 100 mls/hr 11/04/16 16:45 11/09/16 10: 00 Zosyn 3.375 Gm Iv Premix IVPB 100 mls/hr Q6H CRISTOBAL Administration Diltiazem HCl 125 mg/ Sodium 125 mls @ 5 mls/hr 11/05/16 22:00 11/08/16 22:57 Chloride IV Not Given .Q24H CRISTOBAL Protocol 5 MG/HR Propofol 100 mls @ 3.493 mls/hr 11/08/16 08:29 11/09/16 11:06 Diprivan IV 14 mls/hr .Q24H PRN Administration TITRATE PER MD ORDER Protocol 5 MCG/KG/MIN Sodium Chloride 1,000 mls @ 100 mls/hr 11/08/16 10:15 11/09/16 06:44 Sodium Chloride 0.45% IV 100 mls/hr .Q10H CRISTOBAL Administration Insulin Human Regular 0 unit 11/08/16 18:00 11/09/16 12:40 Novolin R SC 6 unit Q6H CRISTOBAL Administration Methimazole 5 mg 11/07/16 10:00 11/09/16 09:59 Tapazole PO 5 mg TID CRISTOBAL Administration Metoprolol Tartrate 5 mg 11/04/16 19:45 11/09/16 12:44 Lopressor IVP 5 mg Q6H CRISTOBAL Administration Nystatin 0 ea 11/04/16 18:00 11/09/16 14:43 Mycostatin Cream TOP 1 units TID CRISTOBAL Administration Pantoprazole Sodium 40 mg 11/04/16 16:45 11/09/16 09:59 Protonix Inj IVP 40 mg DAILY CRISTOBAL Administration - Patient Studies Lab Studies: Lab Studies 11/09/16 11/09/16 11/09/16 Range/Units 11:54 06:30 06:05 WBC 5.8 (4.8-10.8) K/uL RBC 4.37 (3.80-5.20) Mil/uL Hgb 12.9 (11.0-16.0) g/dL Hct 40.1 (34.0-47.0) % MCV 91.7 (81.0-99.0) fL MCH 29.5 (27.0-31.0) pg MCHC 32.1 L (33.0-37.0) g/dL RDW 15.3 H (11.5-14.5) % Plt Count 125 L D (130-400) K/uL MPV 8.9 (7.2-11.7) fL Neut % (Auto) 65.5 (50.0-75.0) % Lymph % (Auto) 18.5 L (20.0-40.0) % Churchill % (Auto) 11.4 H (0.0-10.0) % Eos % (Auto) 4.5 H (0.0-4.0) % Baso % (Auto) 0.1 (0.0-2.0) % Neut # 3.8 (1.8-7.0) K/uL Lymph # 1.1 (1.0-4.3) K/uL Churchill # 0.7 (0.0-0.8) K/uL Eos # 0.3 (0.0-0.7) K/uL Baso # 0.0 (0.0-0.2) K/uL Puncture Site pCO2 (35-45) mm/Hg pO2 (80-100) mm/Hg HCO3 (21-28) mmol/L ABG pH (7.35-7.45) ABG Total CO2 (22-28) mmol/L ABG O2 Saturation (95-98) % ABG Base Excess (-2.0-3.0) mmol/L ABG Hemoglobin (11.7-17.4) g/dL ABG Carboxyhemoglobin (0.5-1.5) % POC ABG HHb (Measured) (0.0-5.0) % ABG Methemoglobin (0.0-3.0) % Chaz Test A-a O2 Difference mm/Hg Respiratory Index Hgb O2 Saturation (95.0-98.0) % Mechanical Rate FiO2 % Tidal Volume PEEP Sodium 153 H (132-148) mmol/L Potassium 2.9 L (3.6-5.2) mmol/L Chloride 106 (98-107) mmol/L Carbon Dioxide 35 H (22-30) mmol/L Anion Gap 15 (10-20) BUN 38 H (7-17) mg/dL Creatinine 0.6 L (0.7-1.2) MG/DL Est GFR ( Amer) > 60 Est GFR (Non-Af Amer) > 60 POC Glucose (mg/dL) 268 H 215 H (65-110) mg/dL Random Glucose 218 H (65-105) mg/dL Calcium 8.3 L (8.6-10.4) mg/dl Phosphorus 1.8 L (2.5-4.5) mg/dL Magnesium 2.2 (1.6-2.3) mg/dL Total Bilirubin 1.5 H (0.2-1.3) mg/dL AST 34 (14-36) U/L ALT 77 H D (9-52) U/L Alkaline Phosphatase 117 (38-126) U/L Total Protein 5.1 L (6.3-8.3) g/dL Albumin 2.6 L (3.5-5.0) g/dL Globulin 2.5 (2.2-3.9) gm/dL Albumin/Globulin Ratio 1.0 (1.0-2.1) 11/09/16 11/08/16 11/08/16 Range/Units 04:25 23:56 17:30 WBC (4.8-10.8) K/uL RBC (3.80-5.20) Mil/uL Hgb (11.0-16.0) g/dL Hct (34.0-47.0) % MCV (81.0-99.0) fL MCH (27.0-31.0) pg MCHC (33.0-37.0) g/dL RDW (11.5-14.5) % Plt Count (130-400) K/uL MPV (7.2-11.7) fL Neut % (Auto) (50.0-75.0) % Lymph % (Auto) (20.0-40.0) % Churchill % (Auto) (0.0-10.0) % Eos % (Auto) (0.0-4.0) % Baso % (Auto) (0.0-2.0) % Neut # (1.8-7.0) K/uL Lymph # (1.0-4.3) K/uL Churchill # (0.0-0.8) K/uL Eos # (0.0-0.7) K/uL Baso # (0.0-0.2) K/uL Puncture Site Rr pCO2 44 (35-45) mm/Hg pO2 126 H (80-100) mm/Hg HCO3 36.2 H (21-28) mmol/L ABG pH 7.55 H (7.35-7.45) ABG Total CO2 39.9 H (22-28) mmol/L ABG O2 Saturation 99.7 H (95-98) % ABG Base Excess 14.5 H (-2.0-3.0) mmol/L ABG Hemoglobin 11.9 (11.7-17.4) g/dL ABG Carboxyhemoglobin 1.8 H (0.5-1.5) % POC ABG HHb (Measured) 0.3 (0.0-5.0) % ABG Methemoglobin 1.1 (0.0-3.0) % Chaz Test Pos A-a O2 Difference 247.0 mm/Hg Respiratory Index 2.0 Hgb O2 Saturation 96.7 (95.0-98.0) % Mechanical Rate 16 FiO2 60.0 % Tidal Volume 500 PEEP 5 Sodium (132-148) mmol/L Potassium (3.6-5.2) mmol/L Chloride (98-107) mmol/L Carbon Dioxide (22-30) mmol/L Anion Gap (10-20) BUN (7-17) mg/dL Creatinine (0.7-1.2) MG/DL Est GFR ( Amer) Est GFR (Non-Af Amer) POC Glucose (mg/dL) 246 H 241 H (65-110) mg/dL Random Glucose (65-105) mg/dL Calcium (8.6-10.4) mg/dl Phosphorus (2.5-4.5) mg/dL Magnesium (1.6-2.3) mg/dL Total Bilirubin (0.2-1.3) mg/dL AST (14-36) U/L ALT (9-52) U/L Alkaline Phosphatase (38-126) U/L Total Protein (6.3-8.3) g/dL Albumin (3.5-5.0) g/dL Globulin (2.2-3.9) gm/dL Albumin/Globulin Ratio (1.0-2.1) Laboratory Results - last 24 hr 11/08/16 11/08/16 11/09/16 17:30 23:56 04:25 WBC RBC Hgb Hct MCV MCH MCHC RDW Plt Count MPV Neut % (Auto) Lymph % (Auto) Churchill % (Auto) Eos % (Auto) Baso % (Auto) Neut # Lymph # Churchill # Eos # Baso # Puncture Site Rr pCO2 44 pO2 126 H HCO3 36.2 H ABG pH 7.55 H ABG Total CO2 39.9 H ABG O2 Saturation 99.7 H ABG Base Excess 14.5 H ABG Hemoglobin 11.9 ABG Carboxyhemoglobin 1.8 H POC ABG HHb (Measured) 0.3 ABG Methemoglobin 1.1 Chaz Test Pos A-a O2 Difference 247.0 Respiratory Index 2.0 Hgb O2 Saturation 96.7 Mechanical Rate 16 FiO2 60.0 Tidal Volume 500 PEEP 5 Sodium Potassium Chloride Carbon Dioxide Anion Gap BUN Creatinine Est GFR ( Amer) Est GFR (Non-Af Amer) POC Glucose (mg/dL) 241 H 246 H Random Glucose Calcium Phosphorus Magnesium Total Bilirubin AST ALT Alkaline Phosphatase Total Protein Albumin Globulin Albumin/Globulin Ratio 11/09/16 11/09/16 11/09/16 06:05 06:30 11:54 WBC 5.8 RBC 4.37 Hgb 12.9 Hct 40.1 MCV 91.7 MCH 29.5 MCHC 32.1 L RDW 15.3 H Plt Count 125 L D MPV 8.9 Neut % (Auto) 65.5 Lymph % (Auto) 18.5 L Churchill % (Auto) 11.4 H Eos % (Auto) 4.5 H Baso % (Auto) 0.1 Neut # 3.8 Lymph # 1.1 Churchill # 0.7 Eos # 0.3 Baso # 0.0 Puncture Site pCO2 pO2 HCO3 ABG pH ABG Total CO2 ABG O2 Saturation ABG Base Excess ABG Hemoglobin ABG Carboxyhemoglobin POC ABG HHb (Measured) ABG Methemoglobin Chaz Test A-a O2 Difference Respiratory Index Hgb O2 Saturation Mechanical Rate FiO2 Tidal Volume PEEP Sodium 153 H Potassium 2.9 L Chloride 106 Carbon Dioxide 35 H Anion Gap 15 BUN 38 H Creatinine 0.6 L Est GFR ( Amer) > 60 Est GFR (Non-Af Amer) > 60 POC Glucose (mg/dL) 215 H 268 H Random Glucose 218 H Calcium 8.3 L Phosphorus 1.8 L Magnesium 2.2 Total Bilirubin 1.5 H AST 34 ALT 77 H D Alkaline Phosphatase 117 Total Protein 5.1 L Albumin 2.6 L Globulin 2.5 Albumin/Globulin Ratio 1.0 Assessment/Plan (1) Atrial fibrillation with rapid ventricular response Current Visit: Yes Status: Acute Comment: taper off Cardizem drip Continue Lopressor and start Cardizem through NG tube Continue anticoagulation and aspirin Check echocardiogram (2) Bilateral lower leg cellulitis Current Visit: Yes Status: Acute Comment: Continue antibiotics and follow up culture and sensitivity (3) Hyperosmolar non-ketotic state in patient with type 2 diabetes mellitus Current Visit: Yes Status: Acute (4) Respiratory failure with hypoxia Current Visit: Yes Status: Acute Attending/Attestation - Attestation I have personally seen and examined this patient.: Yes I have fully participated in the care of the patient.: Yes I have reviewed all pertinent clinical information: Yes Notes (Text): 11/09/16 14:51 Patient seen and examined in the intensive care unit. Case discussed with STAFF in the morning rounds. Remains intubated on ventilatory support Continue treatment for cellulitis and pneumonia Increase NG tube feeding as tolerated Cardizem drip Continue Lopressor
[2016-11-09] MEDS: Potassium Chloride 20 mEq 100 ML IVPB SCH ×3 (08:10→11:02)
--- NOTE | 2016-11-09 08:38 | CARD ---
APPROVED REPORT EXAM: Two-dimensional and M-mode echocardiogram with Doppler and color Doppler. Other Information Quality : GoodRhythm : NSR INDICATION Atrial Fibrillation RISK FACTORS Hypertension Diabetes M-Mode DIMENSIONS RVDd2.19 (2.1-3.2cm)Left Atrium (MM)3.83 (2.5-4.0cm) IVSd0.78 (0.7-1.1cm)Aortic Root2.69 (2.2-3.7cm) LVDd5.43 (4.0-5.6cm)Aortic Cusp Exc.1.91 (1.5-2.0cm) PWd1.13 (0.7-1.1cm)FS (%) 35 % LVDs3.55 (2.0-3.8cm)LVEF (%)63 (>50%) Aortic Valve AoV Peak Djqkcmej022.6cm/Marcos Peak GR.14mmHg Mitral Valve MV E Ntfqdgvz999.2cm/sMV A Lmrjjtrh58.1cm/sE/A ratio3.8 TDI E/Lateral E'0.0E/Medial E'0.0 Tricuspid Valve TR Peak [id number]/sTR Peak Gr.[id number] <Conclusion> Left ventricle: thickness: normal; size: normal; overall ejection fraction: 65%: diastolic filling pressures: elevated Mitral valve: calcified chordae leaflets: normal: excursion: normal; no significant trans-mitral gradient: mild incompetence: left atrium: normal Aortic valve: leaflets: normal: excursion: normal; no significant trans-aortic gradient: No significant incompetence: aortic root: normal Right sided Structures: Pulmonary valve: normal; no significant incompetence; Tricuspid valve: normal; no significant incompetence: Intra-cardiac hemodynamics: pulmonary systolic pressures: 36mmhg; central venous pressures: normal No pericardial effusion
--- NOTE | 2016-11-09 09:34 | HP ---
CHIEF COMPLAINT: Shortness of breath, feeling fatigued and tired. HISTORY OF PRESENT ILLNESS: The patient is a 61-year-old female with past medical history of hypertension, diabetes mellitus, hyperthyroidism, depression , anxiety, peripheral edema. Brought to the Emergency Room of [facility] by EMS in rapid atrial fibrillation. Given 12.5 of Cardizem in the field. The patient states she cannot think straight and her reports occasionally shortness of breath. Denies headache. No chest pain. No nausea, vomiting, diarrhea. No hematuria, no hematochezia. No swelling of the legs. No fever, no chills. We admitted the patient for weakness, neurological deficit. FAMILY HISTORY: Father and mother noncontributory. HABITS: No smoking, no drugs, no ethanol. PAST MEDICAL HISTORY: Hypertension, arthritis, bronchitis, depression, diabetes mellitus, hypertension, hyperthyroidism, peripheral edema, central venous catheter placement 04/14/2015. REVIEW OF SYSTEMS: The patient seen and examined on the bedside in the unit, still intubated, is not able to give a review of systems, but looks like no fever, no chills, no nausea, vomiting, diarrhea. PHYSICAL EXAMINATION: VITAL SIGNS: Temperature 99, blood pressure 120/90, respiratory rate 18, pulse oximetry 93%. HEENT: Head normocephalic, atraumatic. Eyes closed. Nose patent. Mucous membranes moist. The patient is intubated. NECK: Supple. No carotid bruit, no JVD, no thyromegaly. CHEST: Bilaterally symmetrical. HEART: S1, S2 positive. LUNGS: Clear to auscultation. ABDOMEN: Soft. Bowel sounds positive. No organomegaly. EXTREMITIES: No edema, no cyanosis, but there are kaur of stasis dermatitis. MEDICATIONS: Aspirin, Cardizem, NS, Diprivan, Lasix, Lopressor, Lovenox, Mycostatin cream, Novolin, Protonix, Tapazole, piperacillin/tazobactam, Zosyn. LABORATORIES: White blood cells 7.9, hemoglobin 13.hematocrit 41.5, platelets 149. Sodium 141, potassium 3.3, BUN 43, creatinine 0.8. Glucose 246, 241. Phosphorus 2.4. Total bilirubin 1.6, ASSESSMENT AND PLAN: The patient is a 61-year-old lady with , hypokalemia, diabetes mellitus, hypophosphatemia, abnormal liver function test, is admitted on the unit. Seen by chain sales consultant, Dr. Salomon. Got intubated due to respiratory distress, atrial fibrillation, rate controlled. Need to treat underlying cause of distress. May use p.r.n. Cardizem infusion. Bilateral lower extremity cellulitis, diuretics are tolerated and maintain electrolyte balance. Congestive heart failure. Appreciated Dr. Salomon's notes. Appreciated other doctor's input. Repeat labs. We will follow up. Lori Redmond MD cc: [id number] TT: 11/09/2016 08:04:43 en MTDD
[2016-11-09] MEDS: methIMAzole 5 MG TAB PO SCH ×3 (09:59→17:05)
[2016-11-09] MEDS: Enoxaparin 120 mg Syringe SC SCH ×2 (09:59→22:00)
[2016-11-09] MEDS: Nystatin 100,000 Units/gm Cream(15 gm) TOP SCH ×3 (10:05→17:09)
--- NOTE | 2016-11-09 12:19 | RAD ---
HISTORY: intubated COMPARISON: 11/08/2016 FINDINGS: LUNGS: Hazy opacity in both lung bases. PLEURA: Layering pleural effusions bilaterally right greater than left. CARDIOVASCULAR: Stable cardiomediastinal silhouette. OSSEOUS STRUCTURES: The osseous structures demonstrate degenerative changes. VISUALIZED UPPER ABDOMEN: Normal. OTHER FINDINGS: Right-sided catheter overlying the projection of the SVC. ET tube above the level of the tracheal bifurcation. Feeding tube with the distal tip coursing below the diaphragm. IMPRESSION: Bilateral pleural effusions with associated compressive atelectasis.
[2016-11-09] MEDS: Vitamins A & D Oint UD Foilpak TOP SCH (17:08)
[2016-11-09 18:00] LABS: POTASSIUM 3.9 mmol/L (3.6-5.2)
[2016-11-09 18:04] LABS: PHOSPHOROUS 2.9 mg/dL (2.5-4.5)
[2016-11-10] MEDS: Metoprolol 1 mg/ml Inj IVP SCH ×4 (02:01→21:11)
[2016-11-10] MEDS: (Novolin R) Insulin Human Regular 100 units/ml vial SC SCH ×4 (02:26→17:17)
[2016-11-10] MEDS: Sodium Chloride 0.45% 1,000 ML IV SCH (02:28)
--- NOTE | 2016-11-10 04:01 | PN ---
DATE: 11/09/2016 SUBJECTIVE: The patient is a 61-year-old female. The patient was seen and examined at the bedside, still intubated, sedated. No acute event noted overnight. Atrial fibrillation is rate controlled. The patient is stable. Has new setting of the vent. Cannot do review of systems because of the patient's condition. According to staff, 2 large pieces of dried mucus were extracted from the patient's throat, obstructing vocal cords. The patient is placed to get better IV access. No [id number] or legal guardian. No admission consent was obtained for central line. PHYSICAL EXAMINATION: VITAL SIGNS: Pulse 107, respiratory rate 13, oxygenation 93, blood pressure 126 /58, temperature 99.2. HEENT: Head normocephalic, atraumatic. Eyes closed. Nose: Patent. Mucous membranes: Moist. Still intubated. NECK: No JVD, no carotid bruit. CHEST: Bilaterally symmetrical. HEART: S1, S2 positive. LUNGS: Clear to auscultation. ABDOMEN: Soft. Bowel sounds positive. No organomegaly. EXTREMITIES: Swollen. MEDICATIONS: Aspirin, diltiazem, Lasix, Lovenox, Tapazole, Zosyn. LABORATORY DATA: White blood cells 5.8, hemoglobin 12.9, hematocrit 40.1, platelets 125. Sodium 152, potassium 2.9, BUN 13, creatinine 0.6, glucose 244. ASSESSMENT AND PLAN: The patient is a 61-year-old lady with leukocytosis, improved, thrombocytopenia, hypernatremia, hypokalemia, replaced with repeat potassium 3.9, renal insufficiency, hyperglycemia, hypocalcemia, hypophosphatemia, abnormal liver function tests, glucosuria, has respiratory failure and intubated, hyperosmolar nonketotic state in patient with type 2 diabetes mellitus, atrial fibrillation with rapid ventricular response. Tapering off Cardizem drip, continue Lopressor, and start Cardizem through NG tube. Continue anticoagulation, aspirin, and check echocardiogram for bilateral lower leg cellulitis. Seen by car refinisher, Dr. Salomon and reel stripper, Dr. Calle. GI prophylaxis, repeat labs. We will follow up. Lori Redmond MD cc: [id number] TT: 11/10/2016 04:00:35 Confirmation # [id number] Dictation # [id number] MTDD
[2016-11-10] MEDS: Piperacill/Tazo 3.375gm in Dex 50 ML IVPB SCH ×4 (04:37→21:55)
[2016-11-10 04:44] LABS: ABG ALLEN TEST POS; ABG MECHANICAL RATE 12; ARTERIAL BLOOD HGB O2 SAT 96.3 % (95.0-98.0); ATERIAL BLOOD GAS PEEP 5; CARBOXYHEMOGLOBIN 1.7 % (0.5-1.5); DRAW SITE RR
[2016-11-10 06:41] LABS: BASO % 0.4 % (0.0-2.0); CHLORIDE 109 mmol/L (98-107); EOS # 0.2 K/uL (0.0-0.7); EOS % 3.2 % (0.0-4.0); LYMPH # 1.4 K/uL (1.0-4.3); LYMPH % 18.8 % (20.0-40.0); MEAN CELL VOLUME 92.2 fL (81.0-99.0); MEAN CORPUSCULAR HEMOGLOBIN 29.1 pg (27.0-31.0); MEAN CORPUSCULAR HGB CONC 31.5 g/dL (33.0-37.0); MEAN PLATELET VOLUME 9.7 fL (7.2-11.7); MONO # 0.7 K/uL (0.0-0.8); MONO % 9.9 % (0.0-10.0); POTASSIUM 3.8 mmol/L (3.6-5.2); RED CELL DISTRIBUTION WIDTH 15.7 % (11.5-14.5); SODIUM 156 mmol/L (132-148); WHITE BLOOD COUNT 7.4 K/uL (4.8-10.8)
[2016-11-10 06:43] LABS: GFR AFRICAN-AMERICAN > 60
[2016-11-10 06:44] LABS: ALB/GLOB RATIO 0.8 (1.0-2.1); ALKALINE PHOSPHATASE 95 U/L (38-126); ALT/SGPT 64 U/L (9-52); AST/SGOT 22 U/L (14-36); BLOOD UREA NITROGEN 40 mg/dL (7-17); CALCIUM 8.5 mg/dl (8.6-10.4); CARBON DIOXIDE 36 mmol/L (22-30); GLUCOSE,RANDOM 229 mg/dL (65-105); PHOSPHOROUS 2.5 mg/dL (2.5-4.5); TOTAL PROTEIN 5.5 g/dL (6.3-8.3)
[2016-11-10 06:45] LABS: MAGNESIUM 2.2 mg/dL (1.6-2.3)
[2016-11-10] MEDS ORDERED: Acetaminophen 650mg/20.3ml solution UD PO PRN (07:59)
--- NOTE | 2016-11-10 08:50 | CP.CCUPN ---
<Eloina Allen - Last Filed: 11/10/16 17:19> CCU Subjective - Physician Review Subjective (Free Text): 11/08/16 13:06 Pt seen in mild distress requiring intubation. Two large pieces of dried mucus were extracted from the patient's throat obstructing vocal cords. Patient intubated. TLC line was also placed to ensure better IV access. As there is no power of roll former or legal guardian, an administrative consent was obtained for central line. An ROS could not be obtained at this time because patient is intubated and sedated. 11/09/16 13:15 Patient seen at beside intubated and sedated. GCS 8T (FiO2 60 PEEP 5 VT 500 RR 16). No acute events overnight per nursing. A fib is rate controlled. Patient is stable. New vent settings after rounds PRVC (FiO2 60, PEEP 5, RR 12 VT 500). ROS couldn't be obtained because patient is intubated and sedated. 11/10/16 16:50 Pt seen and examined in no acute distress. Patient spiked a fever during overnight shift which initially responded to Tylenol and later returned during the morning shift. Patient administered tylenol and cooling blankets. Patient underwent thoracentesis for pleural effusion. Tolerated procedure well. Patient is rate controlled. ROS couldn't be obtained because patient is intubated and sedated. CCU Objective - Vital Signs / Intake & Output Vital Signs (Last 4 hours): Vital Signs Pulse Resp BP Pulse Ox 11/10/16 06:11 105 H 13 111/54 L 99 11/10/16 06:00 101 H 13 98 11/10/16 05:53 108 H 12 99 11/10/16 05:11 113 H 11 L 128/51 L 95 11/10/16 05:00 110 H 20 98 Intake and Output (Last 8hrs): Intake & Output 11/09/16 11/10/16 11/10/16 22:59 06:59 14:59 Intake Total 1239.5 1237 Output Total 350 325 Balance 889.5 912 Weight 265 lb 11.2 oz Intake: Intake, IV Amount 919.5 997 Right Internal Jugular 112 112 Right Distal Port 712.5 800 Internal Jugular Right Distal Port 95 85 Oral 220 240 Other 100 Output: Urine 350 325 Urethral ([place]) 350 325 - Physical Exam Head: Positive for: Atraumatic, Normocephalic Pupils: Positive for: PERRL. Negative for: Sluggish, Non-Reactive Extroacular Muscles: Positive for: EOMI. Negative for: Gaze Palsy Conjunctiva: Positive for: Normal. Negative for: Injected, Icteric Neck: Positive for: Normal Range of Motion, Trachea Midline. Negative for: Meningeal Signs, MIDLINE TENDERNESS, Paraspinal Tenderness, JVD, Lymphadenopathy , Bruit, Other Respiratory/Chest: Positive for: Wheezes, Decreased Breath Sounds, Other ( intubated). Negative for: Rales Cardiovascular: Positive for: Irregular Rhythm, Peripheal Pulses Present, Tachycardic. Negative for: Murmurs, Normal S1, S2 Abdomen: Negative for: Tenderness, Distention Upper Extremity: Positive for: Normal Inspection Lower Extremity: Positive for: Edema Neurological: Negative for: Speech Normal Psychiatric: Negative for: Alert, Oriented x 3 - Medications Active Medications: Active Medications Generic Name Dose Route Start Last Admin Trade Name Freq PRN Reason Stop Dose Admin Acetaminophen 650 mg 11/10/16 07:59 11/10/16 08:06 Tylenol 650mg/20.3ml Solution Ud PO 650 mg Q6 PRN Administration Fever >100.4 F Aspirin 81 mg 11/07/16 10:00 11/09/16 09:59 Aspirin Chewable PO 81 mg DAILY CRISTOBAL Administration Enoxaparin Sodium 110 mg 11/07/16 10:00 11/09/16 22:00 Lovenox SC 110 mg Q12 CRISTOBAL Administration Furosemide 40 mg 11/07/16 10:00 11/09/16 09:59 Lasix IVP 40 mg DAILY CRISTOBAL Administration Piperacillin Sod/Tazobactam Sod 50 mls @ 100 mls/hr 11/04/16 16:45 11/10/16 04: 37 Zosyn 3.375 Gm Iv Premix IVPB 100 mls/hr Q6H CRISTOBAL Administration Diltiazem HCl 125 mg/ Sodium 125 mls @ 5 mls/hr 11/05/16 22:00 11/09/16 22:02 Chloride IV 10 mls/hr .Q24H CRISTOBAL Administration Protocol 5 MG/HR Propofol 100 mls @ 3.493 mls/hr 11/08/16 08:29 11/10/16 07:03 Diprivan IV 14 mls/hr .Q24H PRN Administration TITRATE PER MD ORDER Protocol 5 MCG/KG/MIN Sodium Chloride 1,000 mls @ 100 mls/hr 11/08/16 10:15 11/10/16 02:28 Sodium Chloride 0.45% IV 100 mls/hr .Q10H CRISTOBAL Administration Insulin Human Regular 0 unit 11/08/16 18:00 11/10/16 06:57 Novolin R SC 2 unit Q6H CRISTOBAL Administration Methimazole 5 mg 11/07/16 10:00 11/09/16 17:05 Tapazole PO 5 mg TID CRISTOBAL Administration Metoprolol Tartrate 5 mg 11/04/16 19:45 11/10/16 06:58 Lopressor IVP 5 mg Q6H CRISTOBAL Administration Nystatin 0 ea 11/04/16 18:00 11/09/16 17:09 Mycostatin Cream TOP 1 units TID CRISTOBAL Administration Pantoprazole Sodium 40 mg 11/04/16 16:45 11/09/16 09:59 Protonix Inj IVP 40 mg DAILY CRISTOBAL Administration Vitamin A 1 ea 11/09/16 18:00 11/09/16 17:08 Vitamin A & D Oint Ud Foilpak TOP 1 ea BID CRISTOBAL Administration - Patient Studies Lab Studies: Lab Studies 11/10/16 11/10/16 11/10/16 Range/Units 06:25 05:50 04:30 WBC 7.4 (4.8-10.8) K/uL RBC 4.44 (3.80-5.20) Mil/uL Hgb 12.9 (11.0-16.0) g/dL Hct 41.0 (34.0-47.0) % MCV 92.2 (81.0-99.0) fL MCH 29.1 (27.0-31.0) pg MCHC 31.5 L (33.0-37.0) g/dL RDW 15.7 H (11.5-14.5) % Plt Count 135 (130-400) K/uL MPV 9.7 (7.2-11.7) fL Neut % (Auto) 67.7 (50.0-75.0) % Lymph % (Auto) 18.8 L (20.0-40.0) % [place] % (Auto) 9.9 (0.0-10.0) % Eos % (Auto) 3.2 (0.0-4.0) % Baso % (Auto) 0.4 (0.0-2.0) % Neut # 5.0 (1.8-7.0) K/uL Lymph # 1.4 (1.0-4.3) K/uL [place] # 0.7 (0.0-0.8) K/uL Eos # 0.2 (0.0-0.7) K/uL Baso # 0.0 (0.0-0.2) K/uL Puncture Site Rr pCO2 52 H (35-45) mm/Hg pO2 118 H (80-100) mm/Hg HCO3 31.6 H (21-28) mmol/L ABG pH 7.43 (7.35-7.45) ABG Total CO2 36.1 H (22-28) mmol/L ABG O2 Saturation 99.0 H (95-98) % ABG Base Excess 8.6 H (-2.0-3.0) mmol/L ABG Hemoglobin 12.7 (11.7-17.4) g/dL ABG Carboxyhemoglobin 1.7 H (0.5-1.5) % POC ABG HHb (Measured) 1.0 (0.0-5.0) % ABG Methemoglobin 1.0 (0.0-3.0) % Chaz Test Pos A-a O2 Difference 174.0 mm/Hg Respiratory Index 1.5 Hgb O2 Saturation 96.3 (95.0-98.0) % Mechanical Rate 12 FiO2 50.0 % Tidal Volume 500 PEEP 5 Sodium 156 H (132-148) mmol/L Potassium 3.8 (3.6-5.2) mmol/L Chloride 109 H (98-107) mmol/L Carbon Dioxide 36 H (22-30) mmol/L Anion Gap 15 (10-20) BUN 40 H (7-17) mg/dL Creatinine 0.8 (0.7-1.2) MG/DL Est GFR ( Amer) > 60 Est GFR (Non-Af Amer) > 60 POC Glucose (mg/dL) 195 H (65-110) mg/dL Random Glucose 229 H (65-105) mg/dL Calcium 8.5 L (8.6-10.4) mg/dl Phosphorus 2.5 (2.5-4.5) mg/dL Magnesium 2.2 (1.6-2.3) mg/dL Total Bilirubin 1.0 (0.2-1.3) mg/dL AST 22 (14-36) U/L ALT 64 H (9-52) U/L Alkaline Phosphatase 95 (38-126) U/L Total Protein 5.5 L (6.3-8.3) g/dL Albumin 2.5 L (3.5-5.0) g/dL Globulin 3.0 (2.2-3.9) gm/dL Albumin/Globulin Ratio 0.8 L (1.0-2.1) 11/09/16 11/09/16 11/09/16 Range/Units 23:53 17:43 17:11 WBC (4.8-10.8) K/uL RBC (3.80-5.20) Mil/uL Hgb (11.0-16.0) g/dL Hct (34.0-47.0) % MCV (81.0-99.0) fL MCH (27.0-31.0) pg MCHC (33.0-37.0) g/dL RDW (11.5-14.5) % Plt Count (130-400) K/uL MPV (7.2-11.7) fL Neut % (Auto) (50.0-75.0) % Lymph % (Auto) (20.0-40.0) % [place] % (Auto) (0.0-10.0) % Eos % (Auto) (0.0-4.0) % Baso % (Auto) (0.0-2.0) % Neut # (1.8-7.0) K/uL Lymph # (1.0-4.3) K/uL [place] # (0.0-0.8) K/uL Eos # (0.0-0.7) K/uL Baso # (0.0-0.2) K/uL Puncture Site pCO2 (35-45) mm/Hg pO2 (80-100) mm/Hg HCO3 (21-28) mmol/L ABG pH (7.35-7.45) ABG Total CO2 (22-28) mmol/L ABG O2 Saturation (95-98) % ABG Base Excess (-2.0-3.0) mmol/L ABG Hemoglobin (11.7-17.4) g/dL ABG Carboxyhemoglobin (0.5-1.5) % POC ABG HHb (Measured) (0.0-5.0) % ABG Methemoglobin (0.0-3.0) % Chaz Test A-a O2 Difference mm/Hg Respiratory Index Hgb O2 Saturation (95.0-98.0) % Mechanical Rate FiO2 % Tidal Volume PEEP Sodium (132-148) mmol/L Potassium 3.9 (3.6-5.2) mmol/L Chloride (98-107) mmol/L Carbon Dioxide (22-30) mmol/L Anion Gap (10-20) BUN (7-17) mg/dL Creatinine (0.7-1.2) MG/DL Est GFR ( Amer) Est GFR (Non-Af Amer) POC Glucose (mg/dL) 191 H 244 H (65-110) mg/dL Random Glucose (65-105) mg/dL Calcium (8.6-10.4) mg/dl Phosphorus 2.9 (2.5-4.5) mg/dL Magnesium (1.6-2.3) mg/dL Total Bilirubin (0.2-1.3) mg/dL AST (14-36) U/L ALT (9-52) U/L Alkaline Phosphatase (38-126) U/L Total Protein (6.3-8.3) g/dL Albumin (3.5-5.0) g/dL Globulin (2.2-3.9) gm/dL Albumin/Globulin Ratio (1.0-2.1) 11/09/16 Range/Units 11:54 WBC (4.8-10.8) K/uL RBC (3.80-5.20) Mil/uL Hgb (11.0-16.0) g/dL Hct (34.0-47.0) % MCV (81.0-99.0) fL MCH (27.0-31.0) pg MCHC (33.0-37.0) g/dL RDW (11.5-14.5) % Plt Count (130-400) K/uL MPV (7.2-11.7) fL Neut % (Auto) (50.0-75.0) % Lymph % (Auto) (20.0-40.0) % [place] % (Auto) (0.0-10.0) % Eos % (Auto) (0.0-4.0) % Baso % (Auto) (0.0-2.0) % Neut # (1.8-7.0) K/uL Lymph # (1.0-4.3) K/uL [place] # (0.0-0.8) K/uL Eos # (0.0-0.7) K/uL Baso # (0.0-0.2) K/uL Puncture Site pCO2 (35-45) mm/Hg pO2 (80-100) mm/Hg HCO3 (21-28) mmol/L ABG pH (7.35-7.45) ABG Total CO2 (22-28) mmol/L ABG O2 Saturation (95-98) % ABG Base Excess (-2.0-3.0) mmol/L ABG Hemoglobin (11.7-17.4) g/dL ABG Carboxyhemoglobin (0.5-1.5) % POC ABG HHb (Measured) (0.0-5.0) % ABG Methemoglobin (0.0-3.0) % Chaz Test A-a O2 Difference mm/Hg Respiratory Index Hgb O2 Saturation (95.0-98.0) % Mechanical Rate FiO2 % Tidal Volume PEEP Sodium (132-148) mmol/L Potassium (3.6-5.2) mmol/L Chloride (98-107) mmol/L Carbon Dioxide (22-30) mmol/L Anion Gap (10-20) BUN (7-17) mg/dL Creatinine (0.7-1.2) MG/DL Est GFR ( Amer) Est GFR (Non-Af Amer) POC Glucose (mg/dL) 268 H (65-110) mg/dL Random Glucose (65-105) mg/dL Calcium (8.6-10.4) mg/dl Phosphorus (2.5-4.5) mg/dL Magnesium (1.6-2.3) mg/dL Total Bilirubin (0.2-1.3) mg/dL AST (14-36) U/L ALT (9-52) U/L Alkaline Phosphatase (38-126) U/L Total Protein (6.3-8.3) g/dL Albumin (3.5-5.0) g/dL Globulin (2.2-3.9) gm/dL Albumin/Globulin Ratio (1.0-2.1) Laboratory Results - last 24 hr 11/09/16 11/09/16 11/09/16 11:54 17:11 17:43 WBC RBC Hgb Hct MCV MCH MCHC RDW Plt Count MPV Neut % (Auto) Lymph % (Auto) [place] % (Auto) Eos % (Auto) Baso % (Auto) Neut # Lymph # [place] # Eos # Baso # Puncture Site pCO2 pO2 HCO3 ABG pH ABG Total CO2 ABG O2 Saturation ABG Base Excess ABG Hemoglobin ABG Carboxyhemoglobin POC ABG HHb (Measured) ABG Methemoglobin Chaz Test A-a O2 Difference Respiratory Index Hgb O2 Saturation Mechanical Rate FiO2 Tidal Volume PEEP Sodium Potassium 3.9 Chloride Carbon Dioxide Anion Gap BUN Creatinine Est GFR ( Amer) Est GFR (Non-Af Amer) POC Glucose (mg/dL) 268 H 244 H Random Glucose Calcium Phosphorus 2.9 Magnesium Total Bilirubin AST ALT Alkaline Phosphatase Total Protein Albumin Globulin Albumin/Globulin Ratio 11/09/16 11/10/16 11/10/16 23:53 04:30 05:50 WBC RBC Hgb Hct MCV MCH MCHC RDW Plt Count MPV Neut % (Auto) Lymph % (Auto) [place] % (Auto) Eos % (Auto) Baso % (Auto) Neut # Lymph # [place] # Eos # Baso # Puncture Site Rr pCO2 52 H pO2 118 H HCO3 31.6 H ABG pH 7.43 ABG Total CO2 36.1 H ABG O2 Saturation 99.0 H ABG Base Excess 8.6 H ABG Hemoglobin 12.7 ABG Carboxyhemoglobin 1.7 H POC ABG HHb (Measured) 1.0 ABG Methemoglobin 1.0 Chaz Test Pos A-a O2 Difference 174.0 Respiratory Index 1.5 Hgb O2 Saturation 96.3 Mechanical Rate 12 FiO2 50.0 Tidal Volume 500 PEEP 5 Sodium Potassium Chloride Carbon Dioxide Anion Gap BUN Creatinine Est GFR ( Amer) Est GFR (Non-Af Amer) POC Glucose (mg/dL) 191 H 195 H Random Glucose Calcium Phosphorus Magnesium Total Bilirubin AST ALT Alkaline Phosphatase Total Protein Albumin Globulin Albumin/Globulin Ratio 11/10/16 06:25 WBC 7.4 RBC 4.44 Hgb 12.9 Hct 41.0 MCV 92.2 MCH 29.1 MCHC 31.5 L RDW 15.7 H Plt Count 135 MPV 9.7 Neut % (Auto) 67.7 Lymph % (Auto) 18.8 L [place] % (Auto) 9.9 Eos % (Auto) 3.2 Baso % (Auto) 0.4 Neut # 5.0 Lymph # 1.4 [place] # 0.7 Eos # 0.2 Baso # 0.0 Puncture Site pCO2 pO2 HCO3 ABG pH ABG Total CO2 ABG O2 Saturation ABG Base Excess ABG Hemoglobin ABG Carboxyhemoglobin POC ABG HHb (Measured) ABG Methemoglobin Chaz Test A-a O2 Difference Respiratory Index Hgb O2 Saturation Mechanical Rate FiO2 Tidal Volume PEEP Sodium 156 H Potassium 3.8 Chloride 109 H Carbon Dioxide 36 H Anion Gap 15 BUN 40 H Creatinine 0.8 Est GFR ( Amer) > 60 Est GFR (Non-Af Amer) > 60 POC Glucose (mg/dL) Random Glucose 229 H Calcium 8.5 L Phosphorus 2.5 Magnesium 2.2 Total Bilirubin 1.0 AST 22 ALT 64 H Alkaline Phosphatase 95 Total Protein 5.5 L Albumin 2.5 L Globulin 3.0 Albumin/Globulin Ratio 0.8 L Fingerstick Blood Sugar Results: 195 Review of Systems - Review of Systems Review of Systems: as noted in subjective Assessment/Plan - Assessment and Plan (Free Text) Assessment: Patient with past medical history of diabetes, HTN, hyperthyroidism, depression , anxiety, peripheral edema brought in by EMS with altered mental status and in rapid A-fib and hyperglycemia. Patient continues to be observed and managed in the ICU with uncontrolled blood sugar levels. A fib is rate controlled. Patient is s/p thoracentesis. Plan: Neuro: Altered mental status Neurochecks q4 11/06 CT Head: hypoattenuation of the left frontal region. No fracture, no hemorrhage, and no sinusitis. Propofol @ 3.493 cc/hr IV Q24H (5 mcg/kg/min) Cardio: Intermittently in A-fib- rate controlled with Diltiazem drip Lopressor 5 mg IV Q6 ASA 81 mg Telemetry: 11/07: A-fib @ 90 bpm 11/04 NT Pro BNPL 9500 Imagin/20 Carotid doppler: preliminary report bilateral mild disease 11/07 Echocardiogram: EF 65%, calcified mitral valve chordae leaflets. 11/04 EKG: atrial fibrillation + RVR @ 153 bpm Metoprolol titrate 5 mg IVP Q6H Diltiazem 125 @ 5 cc/hr IV Q24H, 5 mg/hr . Will attempt to slowly wean off drip. Monitor Pulm: Maintain O2 Sat >92% ABG 11/10 pH 7.43, CO@ 52, O2118, HCO3 31.6 (Inc RR to 14) 11/09 pH 7.55, CO2 44, O2 36.2, HCO3 36.2 Metabolic alkalosis- dec RR to 12 11/10: CXR- mild central pulm vascular congestive changes with b/l lower lobe alveolar infiltrates and b/l effusions- Thoracentesis today 700 cc of yellow fluid removed from right lung. F/U studies Solumedrol 40 mg IV q12 Endo: HHS v DKA ISS high dose Levemir 10 units now, begin Insulin SC Q6 Hemoglobin A1c - 14.3 Accucheck q4 Methimazole 5 mg PO TID GI: Tube Feeding goal rates 50 cc per dietary and include free water flushes Daily CMP : Monitor I/Os [place] in place Renal: BUN/Cr: 40/0.8 Hypernatremia (153) - free water flushes Heme: Daily CBC ID: Stable 7.4 Daily CBC Zosyn 3.375 gm D/C tmrw Nystatin TOP TID MSK: Hx of Cellulitis and venous insufficiency on bilateral anterior tibias - contraindication for SCDs Venous dopplers- F/U Prophylaxis: DVT: ASA 81 mg PO daily, Lovenox 110 mg SC Q12 SCD contraindication due to venous insufficiency and cellulitis of bilateral lower extremities GI: Protonix 40 mg IVP daily <Andrew Plaza - Last Filed: 11/10/16 18:36> CCU Objective - Vital Signs / Intake & Output Vital Signs (Last 4 hours): Vital Signs Temp Pulse Resp BP Pulse Ox 11/10/16 18:00 98.2 F 92 H 14 146/80 100 11/10/16 17:00 92 H 14 114/67 100 11/10/16 16:00 97.7 F 86 16 110/71 99 11/10/16 15:00 85 14 123/66 99 Intake and Output (Last 8hrs): Intake & Output 11/10/16 11/10/16 11/10/16 06:59 14:59 22:59 Intake Total 1237 929 295.5 Output Total 325 340 465 Balance 912 589 -169.5 Weight 265 lb 11.2 oz Intake: Intake, IV Amount 997 609 15.5 Right Internal Jugular 112 46 15.5 Right Distal Port 800 500 Internal Jugular Right Distal Port 85 63 Oral 240 270 180 Other 50 100 Output: Urine 325 340 465 Urethral ([place]) 325 340 465 - Medications Active Medications: Active Medications Generic Name Dose Route Start Last Admin Trade Name Freq PRN Reason Stop Dose Admin Acetaminophen 650 mg 11/10/16 07:59 11/10/16 08:06 Tylenol 650mg/20.3ml Solution Ud PO 650 mg Q6 PRN Administration Fever >100.4 F Aspirin 81 mg 11/07/16 10:00 11/10/16 09:11 Aspirin Chewable PO 81 mg DAILY CRISTOBAL Administration Enoxaparin Sodium 110 mg 11/07/16 10:00 11/10/16 09:12 Lovenox SC 110 mg Q12 CRISTOBAL Administration Furosemide 40 mg 11/07/16 10:00 11/10/16 09:11 Lasix IVP 40 mg DAILY CRISTOBAL Administration Piperacillin Sod/Tazobactam Sod 50 mls @ 100 mls/hr 11/04/16 16:45 11/10/16 17: 22 Zosyn 3.375 Gm Iv Premix IVPB 11/11/16 23:00 100 mls/hr Q6H CRISTOBAL Administration Diltiazem HCl 125 mg/ Sodium 125 mls @ 5 mls/hr 11/05/16 22:00 11/10/16 13:00 Chloride IV 0 mg/hr .Q24H CRISTOBAL Titration Protocol 5 MG/HR Propofol 100 mls @ 3.493 mls/hr 11/08/16 08:29 11/10/16 17:33 Diprivan IV 6.986 mls/hr .Q24H PRN Administration TITRATE PER MD ORDER Protocol 5 MCG/KG/MIN Insulin Human Regular 0 unit 11/10/16 12:00 11/10/16 17:17 Novolin R SC 4 unit Q6 CRISTOBAL Administration Protocol Methimazole 5 mg 11/07/16 10:00 11/10/16 17:12 Tapazole PO 5 mg TID CRISTOBAL Administration Methylprednisolone 40 mg 11/10/16 22:00 Solu-Medrol IVP Q12 CRISTOBAL Metoprolol Tartrate 5 mg 11/04/16 19:45 11/10/16 15:00 Lopressor IVP 5 mg Q6H CRISTOBAL Administration Nystatin 0 ea 11/04/16 18:00 11/10/16 17:13 Mycostatin Cream TOP 1 units TID CRISTOBAL Administration Pantoprazole Sodium 40 mg 11/04/16 16:45 11/10/16 09:11 Protonix Inj IVP 40 mg DAILY CRISTOBAL Administration Vitamin A 1 ea 11/09/16 18:00 11/10/16 17:23 Vitamin A & D Oint Ud Foilpak TOP 1 ea BID CRISTOBAL Administration - Patient Studies Lab Studies: Lab Studies 11/10/16 11/10/16 11/10/16 Range/Units 17:16 15:30 11:58 WBC (4.8-10.8) K/uL RBC (3.80-5.20) Mil/uL Hgb (11.0-16.0) g/dL Hct (34.0-47.0) % MCV (81.0-99.0) fL MCH (27.0-31.0) pg MCHC (33.0-37.0) g/dL RDW (11.5-14.5) % Plt Count (130-400) K/uL MPV (7.2-11.7) fL Neut % (Auto) (50.0-75.0) % Lymph % (Auto) (20.0-40.0) % [place] % (Auto) (0.0-10.0) % Eos % (Auto) (0.0-4.0) % Baso % (Auto) (0.0-2.0) % Neut # (1.8-7.0) K/uL Lymph # (1.0-4.3) K/uL [place] # (0.0-0.8) K/uL Eos # (0.0-0.7) K/uL Baso # (0.0-0.2) K/uL PT (9.7-12.2) SECONDS INR APTT (21-34) SECONDS Puncture Site pCO2 (35-45) mm/Hg pO2 (80-100) mm/Hg HCO3 (21-28) mmol/L ABG pH (7.35-7.45) ABG Total CO2 (22-28) mmol/L ABG O2 Saturation (95-98) % ABG Base Excess (-2.0-3.0) mmol/L ABG Hemoglobin (11.7-17.4) g/dL ABG Carboxyhemoglobin (0.5-1.5) % POC ABG HHb (Measured) (0.0-5.0) % ABG Methemoglobin (0.0-3.0) % Chaz Test A-a O2 Difference mm/Hg Respiratory Index Hgb O2 Saturation (95.0-98.0) % Mechanical Rate FiO2 % Tidal Volume PEEP Sodium (132-148) mmol/L Potassium (3.6-5.2) mmol/L Chloride (98-107) mmol/L Carbon Dioxide (22-30) mmol/L Anion Gap (10-20) BUN (7-17) mg/dL Creatinine (0.7-1.2) MG/DL Est GFR ( Amer) Est GFR (Non-Af Amer) POC Glucose (mg/dL) 168 H 245 H (65-110) mg/dL Random Glucose (65-105) mg/dL Calcium (8.6-10.4) mg/dl Phosphorus (2.5-4.5) mg/dL Magnesium (1.6-2.3) mg/dL Total Bilirubin (0.2-1.3) mg/dL AST (14-36) U/L ALT (9-52) U/L Alkaline Phosphatase (38-126) U/L Total Protein (6.3-8.3) g/dL Albumin (3.5-5.0) g/dL Globulin (2.2-3.9) gm/dL Albumin/Globulin Ratio (1.0-2.1) Fluid Source Pleural/thoracentesi 11/10/16 11/10/16 11/10/16 Range/Units 11:37 06:25 05:50 WBC 7.4 (4.8-10.8) K/uL RBC 4.44 (3.80-5.20) Mil/uL Hgb 12.9 (11.0-16.0) g/dL Hct 41.0 (34.0-47.0) % MCV 92.2 (81.0-99.0) fL MCH 29.1 (27.0-31.0) pg MCHC 31.5 L (33.0-37.0) g/dL RDW 15.7 H (11.5-14.5) % Plt Count 135 (130-400) K/uL MPV 9.7 (7.2-11.7) fL Neut % (Auto) 67.7 (50.0-75.0) % Lymph % (Auto) 18.8 L (20.0-40.0) % [place] % (Auto) 9.9 (0.0-10.0) % Eos % (Auto) 3.2 (0.0-4.0) % Baso % (Auto) 0.4 (0.0-2.0) % Neut # 5.0 (1.8-7.0) K/uL Lymph # 1.4 (1.0-4.3) K/uL [place] # 0.7 (0.0-0.8) K/uL Eos # 0.2 (0.0-0.7) K/uL Baso # 0.0 (0.0-0.2) K/uL PT 13.1 H (9.7-12.2) SECONDS INR 1.2 APTT 54 H (21-34) SECONDS Puncture Site pCO2 (35-45) mm/Hg pO2 (80-100) mm/Hg HCO3 (21-28) mmol/L ABG pH (7.35-7.45) ABG Total CO2 (22-28) mmol/L ABG O2 Saturation (95-98) % ABG Base Excess (-2.0-3.0) mmol/L ABG Hemoglobin (11.7-17.4) g/dL ABG Carboxyhemoglobin (0.5-1.5) % POC ABG HHb (Measured) (0.0-5.0) % ABG Methemoglobin (0.0-3.0) % Chaz Test A-a O2 Difference mm/Hg Respiratory Index Hgb O2 Saturation (95.0-98.0) % Mechanical Rate FiO2 % Tidal Volume PEEP Sodium 156 H (132-148) mmol/L Potassium 3.8 (3.6-5.2) mmol/L Chloride 109 H (98-107) mmol/L Carbon Dioxide 36 H (22-30) mmol/L Anion Gap 15 (10-20) BUN 40 H (7-17) mg/dL Creatinine 0.8 (0.7-1.2) MG/DL Est GFR ( Amer) > 60 Est GFR (Non-Af Amer) > 60 POC Glucose (mg/dL) 195 H (65-110) mg/dL Random Glucose 229 H (65-105) mg/dL Calcium 8.5 L (8.6-10.4) mg/dl Phosphorus 2.5 (2.5-4.5) mg/dL Magnesium 2.2 (1.6-2.3) mg/dL Total Bilirubin 1.0 (0.2-1.3) mg/dL AST 22 (14-36) U/L ALT 64 H (9-52) U/L Alkaline Phosphatase 95 (38-126) U/L Total Protein 5.5 L (6.3-8.3) g/dL Albumin 2.5 L (3.5-5.0) g/dL Globulin 3.0 (2.2-3.9) gm/dL Albumin/Globulin Ratio 0.8 L (1.0-2.1) Fluid Source 11/10/16 11/09/16 Range/Units 04:30 23:53 WBC (4.8-10.8) K/uL RBC (3.80-5.20) Mil/uL Hgb (11.0-16.0) g/dL Hct (34.0-47.0) % MCV (81.0-99.0) fL MCH (27.0-31.0) pg MCHC (33.0-37.0) g/dL RDW (11.5-14.5) % Plt Count (130-400) K/uL MPV (7.2-11.7) fL Neut % (Auto) (50.0-75.0) % Lymph % (Auto) (20.0-40.0) % [place] % (Auto) (0.0-10.0) % Eos % (Auto) (0.0-4.0) % Baso % (Auto) (0.0-2.0) % Neut # (1.8-7.0) K/uL Lymph # (1.0-4.3) K/uL [place] # (0.0-0.8) K/uL Eos # (0.0-0.7) K/uL Baso # (0.0-0.2) K/uL PT (9.7-12.2) SECONDS INR APTT (21-34) SECONDS Puncture Site Rr pCO2 52 H (35-45) mm/Hg pO2 118 H (80-100) mm/Hg HCO3 31.6 H (21-28) mmol/L ABG pH 7.43 (7.35-7.45) ABG Total CO2 36.1 H (22-28) mmol/L ABG O2 Saturation 99.0 H (95-98) % ABG Base Excess 8.6 H (-2.0-3.0) mmol/L ABG Hemoglobin 12.7 (11.7-17.4) g/dL ABG Carboxyhemoglobin 1.7 H (0.5-1.5) % POC ABG HHb (Measured) 1.0 (0.0-5.0) % ABG Methemoglobin 1.0 (0.0-3.0) % Chaz Test Pos A-a O2 Difference 174.0 mm/Hg Respiratory Index 1.5 Hgb O2 Saturation 96.3 (95.0-98.0) % Mechanical Rate 12 FiO2 50.0 % Tidal Volume 500 PEEP 5 Sodium (132-148) mmol/L Potassium (3.6-5.2) mmol/L Chloride (98-107) mmol/L Carbon Dioxide (22-30) mmol/L Anion Gap (10-20) BUN (7-17) mg/dL Creatinine (0.7-1.2) MG/DL Est GFR ( Amer) Est GFR (Non-Af Amer) POC Glucose (mg/dL) 191 H (65-110) mg/dL Random Glucose (65-105) mg/dL Calcium (8.6-10.4) mg/dl Phosphorus (2.5-4.5) mg/dL Magnesium (1.6-2.3) mg/dL Total Bilirubin (0.2-1.3) mg/dL AST (14-36) U/L ALT (9-52) U/L Alkaline Phosphatase (38-126) U/L Total Protein (6.3-8.3) g/dL Albumin (3.5-5.0) g/dL Globulin (2.2-3.9) gm/dL Albumin/Globulin Ratio (1.0-2.1) Fluid Source Laboratory Results - last 24 hr 11/09/16 11/10/16 11/10/16 23:53 04:30 05:50 WBC RBC Hgb Hct MCV MCH MCHC RDW Plt Count MPV Neut % (Auto) Lymph % (Auto) [place] % (Auto) Eos % (Auto) Baso % (Auto) Neut # Lymph # [place] # Eos # Baso # PT INR APTT Puncture Site Rr pCO2 52 H pO2 118 H HCO3 31.6 H ABG pH 7.43 ABG Total CO2 36.1 H ABG O2 Saturation 99.0 H ABG Base Excess 8.6 H ABG Hemoglobin 12.7 ABG Carboxyhemoglobin 1.7 H POC ABG HHb (Measured) 1.0 ABG Methemoglobin 1.0 Chaz Test Pos A-a O2 Difference 174.0 Respiratory Index 1.5 Hgb O2 Saturation 96.3 Mechanical Rate 12 FiO2 50.0 Tidal Volume 500 PEEP 5 Sodium Potassium Chloride Carbon Dioxide Anion Gap BUN Creatinine Est GFR ( Amer) Est GFR (Non-Af Amer) POC Glucose (mg/dL) 191 H 195 H Random Glucose Calcium Phosphorus Magnesium Total Bilirubin AST ALT Alkaline Phosphatase Total Protein Albumin Globulin Albumin/Globulin Ratio Fluid Source 11/10/16 11/10/16 11/10/16 06:25 11:37 11:58 WBC 7.4 RBC 4.44 Hgb 12.9 Hct 41.0 MCV 92.2 MCH 29.1 MCHC 31.5 L RDW 15.7 H Plt Count 135 MPV 9.7 Neut % (Auto) 67.7 Lymph % (Auto) 18.8 L [place] % (Auto) 9.9 Eos % (Auto) 3.2 Baso % (Auto) 0.4 Neut # 5.0 Lymph # 1.4 [place] # 0.7 Eos # 0.2 Baso # 0.0 PT 13.1 H INR 1.2 APTT 54 H Puncture Site pCO2 pO2 HCO3 ABG pH ABG Total CO2 ABG O2 Saturation ABG Base Excess ABG Hemoglobin ABG Carboxyhemoglobin POC ABG HHb (Measured) ABG Methemoglobin Chaz Test A-a O2 Difference Respiratory Index Hgb O2 Saturation Mechanical Rate FiO2 Tidal Volume PEEP Sodium 156 H Potassium 3.8 Chloride 109 H Carbon Dioxide 36 H Anion Gap 15 BUN 40 H Creatinine 0.8 Est GFR ( Amer) > 60 Est GFR (Non-Af Amer) > 60 POC Glucose (mg/dL) 245 H Random Glucose 229 H Calcium 8.5 L Phosphorus 2.5 Magnesium 2.2 Total Bilirubin 1.0 AST 22 ALT 64 H Alkaline Phosphatase 95 Total Protein 5.5 L Albumin 2.5 L Globulin 3.0 Albumin/Globulin Ratio 0.8 L Fluid Source 11/10/16 11/10/16 15:30 17:16 WBC RBC Hgb Hct MCV MCH MCHC RDW Plt Count MPV Neut % (Auto) Lymph % (Auto) [place] % (Auto) Eos % (Auto) Baso % (Auto) Neut # Lymph # [place] # Eos # Baso # PT INR APTT Puncture Site pCO2 pO2 HCO3 ABG pH ABG Total CO2 ABG O2 Saturation ABG Base Excess ABG Hemoglobin ABG Carboxyhemoglobin POC ABG HHb (Measured) ABG Methemoglobin Chaz Test A-a O2 Difference Respiratory Index Hgb O2 Saturation Mechanical Rate FiO2 Tidal Volume PEEP Sodium Potassium Chloride Carbon Dioxide Anion Gap BUN Creatinine Est GFR ( Amer) Est GFR (Non-Af Amer) POC Glucose (mg/dL) 168 H Random Glucose Calcium Phosphorus Magnesium Total Bilirubin AST ALT Alkaline Phosphatase Total Protein Albumin Globulin Albumin/Globulin Ratio Fluid Source Pleural/thoracentesi Assessment/Plan (1) Respiratory failure with hypoxia Current Visit: Yes Status: Acute Attending/Attestation - Attestation I have personally seen and examined this patient.: Yes I have fully participated in the care of the patient.: Yes I have reviewed all pertinent clinical information: Yes Notes (Text): 11/10/16 18:36 I have seen and examined the patient. Medical records, lab studies, and imaging were reviewed by me and a management plan was formulated on multidisciplinary rounds with resident Dr. Allen. I agree with their above documented assessment and plan. Critical Care Time 35 minutes. Multi-disciplinary rounds were performed with house staff, nursing, speech therapy, respiratory therapy, pharmacy and nutrition with integrated input from the primary team/attending and other consulting services. The documented time is cumulative and includes review of patient data/exams/labs/chart review and examination of the patient on rounds and throughout the day; time is exclusive of any procedures or teaching time.
[2016-11-10] MEDS: Vitamins A & D Oint UD Foilpak TOP SCH ×2 (09:11→17:23)
[2016-11-10] MEDS: Enoxaparin 120 mg Syringe SC SCH ×2 (09:12→21:11)
[2016-11-10] MEDS: methIMAzole 5 MG TAB PO SCH ×3 (09:12→17:12)
[2016-11-10] MEDS: Nystatin 100,000 Units/gm Cream(15 gm) TOP SCH ×3 (09:13→17:13)
--- NOTE | 2016-11-10 11:35 | CP.PCM.PN ---
Subjective - Date & Time of Evaluation Date of Evaluation: 11/10/16 Time of Evaluation: 10:50 - Subjective Subjective: Patient seen and examined in the intensive care unit. Remains intubated on ventilatory support Sedated on Diprivan Tolerating feeding Afebrile Restarted on Cardizem drip Objective - Vital Signs/Intake and Output Vital Signs (last 24 hours): Temp Pulse Resp BP Pulse Ox 102.3 F H 114 H 14 134/61 98 11/10/16 09:00 11/10/16 09:00 11/10/16 09:00 11/10/16 09:11 11/10/16 09:00 Intake and Output: 11/10/16 11/10/16 06:59 18:59 Intake Total 1868 512 Output Total 480 125 Balance 1388 387 - Medications Medications: Current Medications Acetaminophen (Tylenol 650mg/20.3ml Solution Ud) 650 mg PO Q6 PRN PRN Reason: Fever >100.4 F Last Admin: 11/10/16 08:06 Dose: 650 mg Aspirin (Aspirin Chewable) 81 mg PO DAILY [facility] Last Admin: 11/10/16 09:11 Dose: 81 mg Enoxaparin Sodium (Lovenox) 110 mg SC Q12 [facility] Last Admin: 11/10/16 09:12 Dose: 110 mg Furosemide (Lasix) 40 mg IVP DAILY [facility] Last Admin: 11/10/16 09:11 Dose: 40 mg Piperacillin Sod/Tazobactam Sod (Zosyn 3.375 Gm Iv Premix) 50 mls @ 100 mls/hr IVPB Q6H [facility] Last Admin: 11/10/16 04:37 Dose: 100 mls/hr Diltiazem HCl 125 mg/ Sodium (Chloride) 125 mls @ 5 mls/hr IV .Q24H [facility]; 5 MG/ HR PRN Reason: Protocol Last Admin: 11/09/16 22:02 Dose: 10 mls/hr Propofol (Diprivan) 100 mls @ 3.493 mls/hr IV .Q24H PRN; Protocol; 5 MCG/KG/MIN PRN Reason: TITRATE PER MD ORDER Last Admin: 11/10/16 07:03 Dose: 14 mls/hr Sodium Chloride (Sodium Chloride 0.45%) 1,000 mls @ 100 mls/hr IV .Q10H [facility] Last Admin: 11/10/16 02:28 Dose: 100 mls/hr Insulin Human Regular (Novolin R) 0 unit SC Q6H [facility] Last Admin: 11/10/16 06:57 Dose: 2 unit Methimazole (Tapazole) 5 mg PO TID [facility] Last Admin: 11/10/16 09:12 Dose: 5 mg Methylprednisolone (Solu-Medrol) 40 mg IVP Q12 [facility] Metoprolol Tartrate (Lopressor) 5 mg IVP Q6H [facility] Last Admin: 11/10/16 06:58 Dose: 5 mg Nystatin (Mycostatin Cream) 0 ea TOP TID [facility] Last Admin: 11/10/16 09:13 Dose: 1 units Pantoprazole Sodium (Protonix Inj) 40 mg IVP DAILY [facility] Last Admin: 11/10/16 09:11 Dose: 40 mg Vitamin A (Vitamin A & D Oint Ud Foilpak) 1 ea TOP BID [facility] Last Admin: 11/10/16 09:11 Dose: 1 ea - Labs Labs: 11/10/16 06:25 11/10/16 06:25 PT 14.3 SECONDS (9.7-12.2) H 11/04/16 12:14 INR 1.3 11/04/16 12:14 APTT 21 SECONDS (21-34) 11/04/16 12:14 - Head Exam Head Exam: ATRAUMATIC, NORMOCEPHALIC - Eye Exam Eye Exam: Normal appearance - ENT Exam ENT Exam: Mucous Membranes Moist - Neck Exam Neck Exam: Normal Inspection - Respiratory Exam Respiratory Exam: Decreased Breath Sounds - Cardiovascular Exam Cardiovascular Exam: Irregular Rhythm - GI/Abdominal Exam GI & Abdominal Exam: Soft, Normal Bowel Sounds - Extremities Exam Extremities Exam: Pedal Edema Assessment and Plan (1) Respiratory failure with hypoxia Assessment & Plan: WEAN TOLERATED increasing Rt pleural effusion, possible thoracentesis Continue antibiotics Continue feeding Status: Acute (2) Atrial fibrillation with rapid ventricular response Status: Acute (3) Bilateral lower leg cellulitis Status: Acute (4) Hyperosmolar non-ketotic state in patient with type 2 diabetes mellitus Status: Acute
[2016-11-10] MEDS ORDERED: Insulin Detemir 100 units/ml Vial (Levemir) SC STA (11:40)
[2016-11-10] MEDS ORDERED: (Novolin R) Insulin Human Regular 100 units/ml vial SC SCH (11:45)
[2016-11-10 11:51] LABS: INR 1.2
--- NOTE | 2016-11-10 13:26 | RAD ---
HISTORY: intubated COMPARISON: Comparison made with chest radiograph 11/09/2016. FINDINGS: LUNGS: In situ ETT, tip of which lies approximately 5.3 cm above elier. NGT is present, the tip of which has not been included on this film though distal aspect does lie well below EG junction. No change right IJ central venous line with tip in the SVC. Mild central pulmonary vascular congestion with bilateral lower lobe alveolar-type infiltrates and bilateral effusions. PLEURA: No apparent pneumothorax apparent. CARDIOVASCULAR: Cardiomegaly. OSSEOUS STRUCTURES: No significant abnormalities. VISUALIZED UPPER ABDOMEN: Normal. OTHER FINDINGS: None. IMPRESSION: No support lines and tubes as above. Mild central pulmonary vascular congestive changes with bilateral lower lobe alveolar-type infiltrates and bilateral effusions.
--- NOTE | 2016-11-10 14:17 | PCM.SURG1 ---
Surgeon's Initial Post Op Note - Surgeon's Notes Surgeon: Jasbir Catalan MD Bridge Crane Operator: NONE Type of Anesthesia: Local Pre-Operative Diagnosis: Right pleural effusion Operative Findings: US showed moderate right effusion Post-Operative Diagnosis: Right pleural effusion Operation Performed: US guided right thoracentesis. Specimen/Specimens Removed: 700 cc of yellow fluid Estimated Blood Loss: EBL {In ML}: 0 Blood Products Given: N/A Drains Used: No Drains Post-Op Condition: Poor Date of Surgery/Procedure: 11/10/16 Time of Surgery/Procedure: 14:25
[2016-11-10 15:32] LABS: BODY FLUID TYPE PLEURAL/THORACENTESI
[2016-11-10 19:59] LABS: BF GROSS APPEARANCE CLEAR (CLEAR)
[2016-11-10 20:00] LABS: BODY FLUID TOTAL COUNT 100 (0-0)
[2016-11-10] MEDS: MethylPREDNISolone 40 mg Vial IVP SCH (21:11)
[2016-11-11] MEDS: (Novolin R) Insulin Human Regular 100 units/ml vial SC SCH ×4 (01:10→18:00)
[2016-11-11] MEDS: Metoprolol 1 mg/ml Inj IVP SCH ×4 (01:13→22:10)
[2016-11-11 04:24] LABS: ABG ALLEN TEST POS; ABG MECHANICAL RATE 14; ARTERIAL BLOOD HGB O2 SAT 96.6 % (95.0-98.0); ATERIAL BLOOD GAS PEEP 5; CARBOXYHEMOGLOBIN 1.8 % (0.5-1.5); DRAW SITE RR; HHB 0.5 % (0.0-5.0); METHEMOGLOBIN 1.2 % (0.0-3.0)
[2016-11-11] MEDS: Piperacill/Tazo 3.375gm in Dex 50 ML IVPB SCH ×4 (05:12→22:16)
[2016-11-11 06:44] LABS: CHLORIDE 110 mmol/L (98-107)
[2016-11-11 06:45] LABS: POTASSIUM 4.1 mmol/L (3.6-5.2); SODIUM 155 mmol/L (132-148)
[2016-11-11 06:46] LABS: BASO % 0.2 % (0.0-2.0); EOS % 0.3 % (0.0-4.0); HEMATOCRIT 43.6 % (34.0-47.0); LYMPH # 0.8 K/uL (1.0-4.3); LYMPH % 14.5 % (20.0-40.0); MEAN CELL VOLUME 92.2 fL (81.0-99.0); MEAN CORPUSCULAR HEMOGLOBIN 28.9 pg (27.0-31.0); MEAN CORPUSCULAR HGB CONC 31.4 g/dL (33.0-37.0); MEAN PLATELET VOLUME 9.8 fL (7.2-11.7); MONO # 0.4 K/uL (0.0-0.8); MONO % 6.4 % (0.0-10.0); RED CELL DISTRIBUTION WIDTH 15.5 % (11.5-14.5); WHITE BLOOD COUNT 5.6 K/uL (4.8-10.8)
[2016-11-11 06:47] LABS: ALB/GLOB RATIO 0.9 (1.0-2.1); ALKALINE PHOSPHATASE 89 U/L (38-126); ALT/SGPT 56 U/L (9-52); AST/SGOT 29 U/L (14-36); BLOOD UREA NITROGEN 37 mg/dL (7-17); CARBON DIOXIDE 36 mmol/L (22-30); GFR AFRICAN-AMERICAN > 60; GLUCOSE,RANDOM 222 mg/dL (65-105); PHOSPHOROUS 3.7 mg/dL (2.5-4.5); TOTAL PROTEIN 5.8 g/dL (6.3-8.3)
[2016-11-11 06:48] LABS: CALCIUM 8.6 mg/dl (8.6-10.4); MAGNESIUM 2.2 mg/dL (1.6-2.3)
[2016-11-11] MEDS: MethylPREDNISolone 40 mg Vial IVP SCH ×2 (09:27→22:11)
[2016-11-11] MEDS: Enoxaparin 120 mg Syringe SC SCH ×2 (09:28→22:17)
[2016-11-11] MEDS: Vitamins A & D Oint UD Foilpak TOP SCH ×2 (09:28→18:10)
[2016-11-11] MEDS: methIMAzole 5 MG TAB PO SCH ×3 (09:29→18:10)
--- NOTE | 2016-11-11 09:34 | CP.PCM.PN ---
Subjective - Date & Time of Evaluation Date of Evaluation: 11/11/16 Time of Evaluation: 07:30 - Subjective Subjective: Patient seen and examined in the intensive care unit. Remains intubated on ventilatory support Status post thoracentesis 700 mL of fluid removed awake But does not follow commands Afebrile Objective - Vital Signs/Intake and Output Vital Signs (last 24 hours): Temp Pulse Resp BP Pulse Ox 99.7 F H 123 H 14 143/55 L 100 11/11/16 08:00 11/11/16 09:13 11/11/16 09:13 11/11/16 09:28 11/11/16 09:13 Intake and Output: 11/11/16 11/11/16 06:59 18:59 Intake Total 352.5 181.5 Output Total 250 95 Balance 102.5 86.5 - Medications Medications: Current Medications Acetaminophen (Tylenol 650mg/20.3ml Solution Ud) 650 mg PO Q6 PRN PRN Reason: Fever >100.4 F Last Admin: 11/10/16 08:06 Dose: 650 mg Aspirin (Aspirin Chewable) 81 mg PO DAILY [facility] Last Admin: 11/11/16 09:28 Dose: 81 mg Enoxaparin Sodium (Lovenox) 110 mg SC Q12 [facility] Last Admin: 11/11/16 09:28 Dose: 110 mg Furosemide (Lasix) 40 mg IVP DAILY [facility] Last Admin: 11/11/16 09:28 Dose: 40 mg Piperacillin Sod/Tazobactam Sod (Zosyn 3.375 Gm Iv Premix) 50 mls @ 100 mls/hr IVPB Q6H [facility] Stop: 11/11/16 23:00 Last Admin: 11/11/16 05:12 Dose: 100 mls/hr Propofol (Diprivan) 100 mls @ 3.493 mls/hr IV .Q24H PRN; Protocol; 5 MCG/KG/MIN PRN Reason: TITRATE PER MD ORDER Last Admin: 11/11/16 03:57 Dose: 10.479 mls/hr Insulin Human Regular (Novolin R) 0 unit SC Q6 [facility] PRN Reason: Protocol Last Admin: 11/11/16 06:11 Dose: 6 unit Methimazole (Tapazole) 5 mg PO TID [facility] Last Admin: 11/11/16 09:29 Dose: 5 mg Methylprednisolone (Solu-Medrol) 40 mg IVP Q12 [facility] Last Admin: 11/11/16 09:27 Dose: 40 mg Metoprolol Tartrate (Lopressor) 2.5 mg IVP Q6H [facility] Last Admin: 11/11/16 08:25 Dose: 2.5 mg Nystatin (Mycostatin Cream) 0 ea TOP TID [facility] Last Admin: 11/10/16 17:13 Dose: 1 units Pantoprazole Sodium (Protonix Inj) 40 mg IVP DAILY [facility] Last Admin: 11/11/16 09:27 Dose: 40 mg Vitamin A (Vitamin A & D Oint Ud Foilpak) 1 ea TOP BID [facility] Last Admin: 11/11/16 09:28 Dose: 1 ea - Labs Labs: 11/11/16 06:00 11/11/16 06:00 PT 13.1 SECONDS (9.7-12.2) H 11/10/16 11:37 INR 1.2 11/10/16 11:37 APTT 54 SECONDS (21-34) H 11/10/16 11:37 - Head Exam Head Exam: ATRAUMATIC, NORMOCEPHALIC - ENT Exam ENT Exam: Mucous Membranes Moist - Neck Exam Neck Exam: Normal Inspection - Respiratory Exam Respiratory Exam: Decreased Breath Sounds - Cardiovascular Exam Cardiovascular Exam: Irregular Rhythm - GI/Abdominal Exam GI & Abdominal Exam: Soft, Normal Bowel Sounds - Extremities Exam Extremities Exam: Pedal Edema Assessment and Plan (1) Respiratory failure with hypoxia Assessment & Plan: Continue ventilatory support and CPAP trial Taper off sedation Continue antibiotics Status post thoracentesis On IV steroids and nebulizer Status: Acute (2) Atrial fibrillation with rapid ventricular response Status: Acute (3) Bilateral lower leg cellulitis Status: Acute (4) Hyperosmolar non-ketotic state in patient with type 2 diabetes mellitus Status: Acute
[2016-11-11] MEDS: Nystatin 100,000 Units/gm Cream(15 gm) TOP SCH ×3 (09:52→18:10)
--- NOTE | 2016-11-11 10:06 | RAD ---
HISTORY: s/p thoracentesis- intubated COMPARISON: No prior. FINDINGS: LUNGS: Hazy opacity in both lung bases. PLEURA: Previously seen layering right-sided pleural effusion has somewhat resolved. Small left-sided pleural effusions seen. No pneumothorax seen. CARDIOVASCULAR: Mildly enlarged cardiomediastinal silhouette essentially unchanged. OSSEOUS STRUCTURES: The osseous structures demonstrate degenerative changes. VISUALIZED UPPER ABDOMEN: Upper abdomen is suboptimally evaluated. OTHER FINDINGS: Presumed right-sided vascular catheter with the tip overlying the projection of the SVC, it ET tube with the tip above the tracheal bifurcation and the feeding tube with the tip below the diaphragms again seen. IMPRESSION: Somewhat resolved right-sided pleural effusion. No pneumothorax apparent.
--- NOTE | 2016-11-11 10:58 | CP.CCUPN ---
CCU Subjective - Physician Review Subjective (Free Text): 11/08/16 13:06 Pt seen in mild distress requiring intubation. Two large pieces of dried mucus were extracted from the patient's throat obstructing vocal cords. Patient intubated. TLC line was also placed to ensure better IV access. As there is no power of real estate associate attorney or legal guardian, an administrative consent was obtained for central line. An ROS could not be obtained at this time because patient is intubated and sedated. 11/09/16 13:15 Patient seen at beside intubated and sedated. GCS 8T (FiO2 60 PEEP 5 VT 500 RR 16). No acute events overnight per nursing. A fib is rate controlled. Patient is stable. New vent settings after rounds PRVC (FiO2 60, PEEP 5, RR 12 VT 500). ROS couldn't be obtained because patient is intubated and sedated. 11/10/16 16:50 Pt seen and examined in no acute distress. Patient spiked a fever during overnight shift which initially responded to Tylenol and later returned during the morning shift. Patient administered tylenol and cooling blankets. Patient underwent thoracentesis for pleural effusion. Tolerated procedure well. Patient is rate controlled. ROS couldn't be obtained because patient is intubated and sedated. 11/11/16 8:34 Pt seen and examined in no acute distress. Patient seen at beside intubated and sedated. (FiO2 50 PEEP 5 RR 14 VT 500). Patient is awake, but does not follow commands. Patient has low grade fever this morning (T max 100.2, T 99.0-100.2). A fib is rate controlled. Patient is stable. ROS couldn't be obtained because patient was intubated and sedated at the time of evaluation Critical Care Time Spent (in minutes): 36 CCU Objective - Vital Signs / Intake & Output Vital Signs (Last 4 hours): Vital Signs Temp Pulse Resp BP Pulse Ox 11/11/16 10:13 133 H 12 130/80 100 11/11/16 10:00 112 H 14 99 11/11/16 09:28 143/55 L 11/11/16 09:22 118 H 12 100 11/11/16 09:13 123 H 14 143/55 L 100 11/11/16 09:00 117 H 15 100 11/11/16 08:13 119 H 14 151/72 H 99 11/11/16 08:00 99.7 F H 11/11/16 07:18 113 H 14 143/81 99 Intake and Output (Last 8hrs): Intake & Output 11/10/16 11/11/16 11/11/16 22:59 06:59 14:59 Intake Total 587.5 60.5 292.0 Output Total 665 50 195 Balance -77.5 10.5 97.0 Intake: Intake, IV Amount 107.5 10.5 42.0 Right Internal Jugular 57.5 10.5 42.0 Right Distal Port 50 Internal Jugular Oral 380 50 Tube Feeding 200 Other 100 50 Output: Urine 665 50 195 Urethral ([place]) 665 50 195 - Physical Exam Head: Positive for: Atraumatic, Normocephalic Pupils: Positive for: PERRL. Negative for: Sluggish, Non-Reactive Extroacular Muscles: Positive for: EOMI. Negative for: Gaze Palsy Conjunctiva: Positive for: Normal. Negative for: Injected, Icteric Mouth: Positive for: Moist Mucous Membranes Neck: Positive for: Normal Range of Motion, Trachea Midline. Negative for: Meningeal Signs, MIDLINE TENDERNESS, Paraspinal Tenderness, JVD, Lymphadenopathy , Bruit, Other Respiratory/Chest: Positive for: Wheezes, Decreased Breath Sounds, Other ( intubated). Negative for: Rales Cardiovascular: Positive for: Irregular Rhythm, Peripheal Pulses Present, Tachycardic. Negative for: Murmurs, Normal S1, S2 Abdomen: Negative for: Tenderness, Distention Upper Extremity: Positive for: Normal Inspection Lower Extremity: Positive for: Edema Neurological: Negative for: Speech Normal Psychiatric: Negative for: Alert, Oriented x 3 - Medications Active Medications: Active Medications Generic Name Dose Route Start Last Admin Trade Name Freq PRN Reason Stop Dose Admin Acetaminophen 650 mg 11/10/16 07:59 11/10/16 08:06 Tylenol 650mg/20.3ml Solution Ud PO 650 mg Q6 PRN Administration Fever >100.4 F Aspirin 81 mg 11/07/16 10:00 11/11/16 09:28 Aspirin Chewable PO 81 mg DAILY CRISTOBAL Administration Diltiazem HCl 180 mg 11/11/16 11:00 Cardizem Cd PO DAILY [facility] Enoxaparin Sodium 110 mg 11/07/16 10:00 11/11/16 09:28 Lovenox SC 110 mg Q12 CRISTOBAL Administration Furosemide 40 mg 11/07/16 10:00 11/11/16 09:28 Lasix IVP 40 mg DAILY CRISTOBAL Administration Piperacillin Sod/Tazobactam Sod 50 mls @ 100 mls/hr 11/04/16 16:45 11/11/16 10: 31 Zosyn 3.375 Gm Iv Premix IVPB 11/11/16 23:00 100 mls/hr Q6H CRISTOBAL Administration Propofol 100 mls @ 3.493 mls/hr 11/08/16 08:29 11/11/16 03:57 Diprivan IV 10.479 mls/hr .Q24H PRN Administration TITRATE PER MD ORDER Protocol 5 MCG/KG/MIN Insulin Human Regular 0 unit 11/10/16 12:00 11/11/16 06:11 Novolin R SC 6 unit Q6 CRISTOBAL Administration Protocol Methimazole 5 mg 11/07/16 10:00 11/11/16 09:29 Tapazole PO 5 mg TID CRISTOBAL Administration Methylprednisolone 40 mg 11/10/16 22:00 11/11/16 09:27 Solu-Medrol IVP 40 mg Q12 CRISTOBAL Administration Metoprolol Tartrate 2.5 mg 11/10/16 20:14 11/11/16 08:25 Lopressor IVP 2.5 mg Q6H CRISTOBAL Administration Nystatin 0 ea 11/04/16 18:00 11/11/16 09:52 Mycostatin Cream TOP 1 units TID CRISTOBAL Administration Pantoprazole Sodium 40 mg 11/04/16 16:45 11/11/16 09:27 Protonix Inj IVP 40 mg DAILY CRISTOBAL Administration Vitamin A 1 ea 11/09/16 18:00 11/11/16 09:28 Vitamin A & D Oint Ud Foilpak TOP 1 ea BID CRISTOBAL Administration - Patient Studies Lab Studies: Lab Studies 11/11/16 11/11/16 11/11/16 Range/Units 06:00 05:54 04:15 WBC 5.6 (4.8-10.8) K/uL RBC 4.73 (3.80-5.20) Mil/uL Hgb 13.7 (11.0-16.0) g/dL Hct 43.6 (34.0-47.0) % MCV 92.2 (81.0-99.0) fL MCH 28.9 (27.0-31.0) pg MCHC 31.4 L (33.0-37.0) g/dL RDW 15.5 H (11.5-14.5) % Plt Count 129 L (130-400) K/uL MPV 9.8 (7.2-11.7) fL Neut % (Auto) 78.6 H (50.0-75.0) % Lymph % (Auto) 14.5 L (20.0-40.0) % [place] % (Auto) 6.4 (0.0-10.0) % Eos % (Auto) 0.3 (0.0-4.0) % Baso % (Auto) 0.2 (0.0-2.0) % Neut # 4.4 (1.8-7.0) K/uL Lymph # 0.8 L (1.0-4.3) K/uL [place] # 0.4 (0.0-0.8) K/uL Eos # 0.0 (0.0-0.7) K/uL Baso # 0.0 (0.0-0.2) K/uL PT (9.7-12.2) SECONDS INR APTT (21-34) SECONDS Puncture Site Rr pCO2 51 H (35-45) mm/Hg pO2 155 H (80-100) mm/Hg HCO3 33.9 H (21-28) mmol/L ABG pH 7.47 H (7.35-7.45) ABG Total CO2 38.7 H (22-28) mmol/L ABG O2 Saturation 99.5 H (95-98) % ABG Base Excess 11.5 H (-2.0-3.0) mmol/L ABG Hemoglobin 13.7 (11.7-17.4) g/dL ABG Carboxyhemoglobin 1.8 H (0.5-1.5) % POC ABG HHb (Measured) 0.5 (0.0-5.0) % ABG Methemoglobin 1.2 (0.0-3.0) % Chaz Test Pos A-a O2 Difference 138.0 mm/Hg Respiratory Index 0.9 Hgb O2 Saturation 96.6 (95.0-98.0) % Mechanical Rate 14 FiO2 50.0 % Tidal Volume 500 PEEP 5 Sodium 155 H (132-148) mmol/L Potassium 4.1 (3.6-5.2) mmol/L Chloride 110 H (98-107) mmol/L Carbon Dioxide 36 H (22-30) mmol/L Anion Gap 13 (10-20) BUN 37 H (7-17) mg/dL Creatinine 0.7 (0.7-1.2) MG/DL Est GFR ( Amer) > 60 Est GFR (Non-Af Amer) > 60 POC Glucose (mg/dL) 228 H (65-110) mg/dL Random Glucose 222 H (65-105) mg/dL Calcium 8.6 (8.6-10.4) mg/dl Phosphorus 3.7 (2.5-4.5) mg/dL Magnesium 2.2 (1.6-2.3) mg/dL Total Bilirubin 1.0 (0.2-1.3) mg/dL AST 29 (14-36) U/L ALT 56 H (9-52) U/L Alkaline Phosphatase 89 (38-126) U/L Total Protein 5.8 L (6.3-8.3) g/dL Albumin 2.7 L (3.5-5.0) g/dL Globulin 3.1 (2.2-3.9) gm/dL Albumin/Globulin Ratio 0.9 L (1.0-2.1) Fluid Source Fluid Appearance (CLEAR) Fluid WBC (0.0-300.0) /mm3 Fluid RBC (0.0-0.0) /mm3 Fluid Tot Cell Count (0-0) Fluid Neutrophils (0-0) % Fluid Lymphocytes (0-0) % Fld Monocyte/Macrophag (0-0) % Fluid Comment 11/11/16 11/10/16 11/10/16 Range/Units 00:28 17:16 15:30 WBC (4.8-10.8) K/uL RBC (3.80-5.20) Mil/uL Hgb (11.0-16.0) g/dL Hct (34.0-47.0) % MCV (81.0-99.0) fL MCH (27.0-31.0) pg MCHC (33.0-37.0) g/dL RDW (11.5-14.5) % Plt Count (130-400) K/uL MPV (7.2-11.7) fL Neut % (Auto) (50.0-75.0) % Lymph % (Auto) (20.0-40.0) % [place] % (Auto) (0.0-10.0) % Eos % (Auto) (0.0-4.0) % Baso % (Auto) (0.0-2.0) % Neut # (1.8-7.0) K/uL Lymph # (1.0-4.3) K/uL [place] # (0.0-0.8) K/uL Eos # (0.0-0.7) K/uL Baso # (0.0-0.2) K/uL PT (9.7-12.2) SECONDS INR APTT (21-34) SECONDS Puncture Site pCO2 (35-45) mm/Hg pO2 (80-100) mm/Hg HCO3 (21-28) mmol/L ABG pH (7.35-7.45) ABG Total CO2 (22-28) mmol/L ABG O2 Saturation (95-98) % ABG Base Excess (-2.0-3.0) mmol/L ABG Hemoglobin (11.7-17.4) g/dL ABG Carboxyhemoglobin (0.5-1.5) % POC ABG HHb (Measured) (0.0-5.0) % ABG Methemoglobin (0.0-3.0) % Chaz Test A-a O2 Difference mm/Hg Respiratory Index Hgb O2 Saturation (95.0-98.0) % Mechanical Rate FiO2 % Tidal Volume PEEP Sodium (132-148) mmol/L Potassium (3.6-5.2) mmol/L Chloride (98-107) mmol/L Carbon Dioxide (22-30) mmol/L Anion Gap (10-20) BUN (7-17) mg/dL Creatinine (0.7-1.2) MG/DL Est GFR ( Amer) Est GFR (Non-Af Amer) POC Glucose (mg/dL) 193 H 168 H (65-110) mg/dL Random Glucose (65-105) mg/dL Calcium (8.6-10.4) mg/dl Phosphorus (2.5-4.5) mg/dL Magnesium (1.6-2.3) mg/dL Total Bilirubin (0.2-1.3) mg/dL AST (14-36) U/L ALT (9-52) U/L Alkaline Phosphatase (38-126) U/L Total Protein (6.3-8.3) g/dL Albumin (3.5-5.0) g/dL Globulin (2.2-3.9) gm/dL Albumin/Globulin Ratio (1.0-2.1) Fluid Source Pleural/thoracentesi Fluid Appearance Clear (CLEAR) Fluid WBC 170.0 (0.0-300.0) /mm3 Fluid RBC 424.0 H (0.0-0.0) /mm3 Fluid Tot Cell Count 100 H (0-0) Fluid Neutrophils 2.0 H (0-0) % Fluid Lymphocytes 90.0 H (0-0) % Fld Monocyte/Macrophag 8 H (0-0) % Fluid Comment 11/10/16 11/10/16 Range/Units 11:58 11:37 WBC (4.8-10.8) K/uL RBC (3.80-5.20) Mil/uL Hgb (11.0-16.0) g/dL Hct (34.0-47.0) % MCV (81.0-99.0) fL MCH (27.0-31.0) pg MCHC (33.0-37.0) g/dL RDW (11.5-14.5) % Plt Count (130-400) K/uL MPV (7.2-11.7) fL Neut % (Auto) (50.0-75.0) % Lymph % (Auto) (20.0-40.0) % [place] % (Auto) (0.0-10.0) % Eos % (Auto) (0.0-4.0) % Baso % (Auto) (0.0-2.0) % Neut # (1.8-7.0) K/uL Lymph # (1.0-4.3) K/uL [place] # (0.0-0.8) K/uL Eos # (0.0-0.7) K/uL Baso # (0.0-0.2) K/uL PT 13.1 H (9.7-12.2) SECONDS INR 1.2 APTT 54 H (21-34) SECONDS Puncture Site pCO2 (35-45) mm/Hg pO2 (80-100) mm/Hg HCO3 (21-28) mmol/L ABG pH (7.35-7.45) ABG Total CO2 (22-28) mmol/L ABG O2 Saturation (95-98) % ABG Base Excess (-2.0-3.0) mmol/L ABG Hemoglobin (11.7-17.4) g/dL ABG Carboxyhemoglobin (0.5-1.5) % POC ABG HHb (Measured) (0.0-5.0) % ABG Methemoglobin (0.0-3.0) % Chaz Test A-a O2 Difference mm/Hg Respiratory Index Hgb O2 Saturation (95.0-98.0) % Mechanical Rate FiO2 % Tidal Volume PEEP Sodium (132-148) mmol/L Potassium (3.6-5.2) mmol/L Chloride (98-107) mmol/L Carbon Dioxide (22-30) mmol/L Anion Gap (10-20) BUN (7-17) mg/dL Creatinine (0.7-1.2) MG/DL Est GFR ( Amer) Est GFR (Non-Af Amer) POC Glucose (mg/dL) 245 H (65-110) mg/dL Random Glucose (65-105) mg/dL Calcium (8.6-10.4) mg/dl Phosphorus (2.5-4.5) mg/dL Magnesium (1.6-2.3) mg/dL Total Bilirubin (0.2-1.3) mg/dL AST (14-36) U/L ALT (9-52) U/L Alkaline Phosphatase (38-126) U/L Total Protein (6.3-8.3) g/dL Albumin (3.5-5.0) g/dL Globulin (2.2-3.9) gm/dL Albumin/Globulin Ratio (1.0-2.1) Fluid Source Fluid Appearance (CLEAR) Fluid WBC (0.0-300.0) /mm3 Fluid RBC (0.0-0.0) /mm3 Fluid Tot Cell Count (0-0) Fluid Neutrophils (0-0) % Fluid Lymphocytes (0-0) % Fld Monocyte/Macrophag (0-0) % Fluid Comment Laboratory Results - last 24 hr 11/10/16 11/10/16 11/10/16 11:37 11:58 15:30 WBC RBC Hgb Hct MCV MCH MCHC RDW Plt Count MPV Neut % (Auto) Lymph % (Auto) [place] % (Auto) Eos % (Auto) Baso % (Auto) Neut # Lymph # [place] # Eos # Baso # PT 13.1 H INR 1.2 APTT 54 H Puncture Site pCO2 pO2 HCO3 ABG pH ABG Total CO2 ABG O2 Saturation ABG Base Excess ABG Hemoglobin ABG Carboxyhemoglobin POC ABG HHb (Measured) ABG Methemoglobin Chaz Test A-a O2 Difference Respiratory Index Hgb O2 Saturation Mechanical Rate FiO2 Tidal Volume PEEP Sodium Potassium Chloride Carbon Dioxide Anion Gap BUN Creatinine Est GFR ( Amer) Est GFR (Non-Af Amer) POC Glucose (mg/dL) 245 H Random Glucose Calcium Phosphorus Magnesium Total Bilirubin AST ALT Alkaline Phosphatase Total Protein Albumin Globulin Albumin/Globulin Ratio Fluid Source Pleural/thoracentesi Fluid Appearance Clear Fluid WBC 170.0 Fluid RBC 424.0 H Fluid Tot Cell Count 100 H Fluid Neutrophils 2.0 H Fluid Lymphocytes 90.0 H Fld Monocyte/Macrophag 8 H Fluid Comment 11/10/16 11/11/16 11/11/16 17:16 00:28 04:15 WBC RBC Hgb Hct MCV MCH MCHC RDW Plt Count MPV Neut % (Auto) Lymph % (Auto) [place] % (Auto) Eos % (Auto) Baso % (Auto) Neut # Lymph # [place] # Eos # Baso # PT INR APTT Puncture Site Rr pCO2 51 H pO2 155 H HCO3 33.9 H ABG pH 7.47 H ABG Total CO2 38.7 H ABG O2 Saturation 99.5 H ABG Base Excess 11.5 H ABG Hemoglobin 13.7 ABG Carboxyhemoglobin 1.8 H POC ABG HHb (Measured) 0.5 ABG Methemoglobin 1.2 Chaz Test Pos A-a O2 Difference 138.0 Respiratory Index 0.9 Hgb O2 Saturation 96.6 Mechanical Rate 14 FiO2 50.0 Tidal Volume 500 PEEP 5 Sodium Potassium Chloride Carbon Dioxide Anion Gap BUN Creatinine Est GFR ( Amer) Est GFR (Non-Af Amer) POC Glucose (mg/dL) 168 H 193 H Random Glucose Calcium Phosphorus Magnesium Total Bilirubin AST ALT Alkaline Phosphatase Total Protein Albumin Globulin Albumin/Globulin Ratio Fluid Source Fluid Appearance Fluid WBC Fluid RBC Fluid Tot Cell Count Fluid Neutrophils Fluid Lymphocytes Fld Monocyte/Macrophag Fluid Comment 11/11/16 11/11/16 05:54 06:00 WBC 5.6 RBC 4.73 Hgb 13.7 Hct 43.6 MCV 92.2 MCH 28.9 MCHC 31.4 L RDW 15.5 H Plt Count 129 L MPV 9.8 Neut % (Auto) 78.6 H Lymph % (Auto) 14.5 L [place] % (Auto) 6.4 Eos % (Auto) 0.3 Baso % (Auto) 0.2 Neut # 4.4 Lymph # 0.8 L [place] # 0.4 Eos # 0.0 Baso # 0.0 PT INR APTT Puncture Site pCO2 pO2 HCO3 ABG pH ABG Total CO2 ABG O2 Saturation ABG Base Excess ABG Hemoglobin ABG Carboxyhemoglobin POC ABG HHb (Measured) ABG Methemoglobin Chaz Test A-a O2 Difference Respiratory Index Hgb O2 Saturation Mechanical Rate FiO2 Tidal Volume PEEP Sodium 155 H Potassium 4.1 Chloride 110 H Carbon Dioxide 36 H Anion Gap 13 BUN 37 H Creatinine 0.7 Est GFR ( Amer) > 60 Est GFR (Non-Af Amer) > 60 POC Glucose (mg/dL) 228 H Random Glucose 222 H Calcium 8.6 Phosphorus 3.7 Magnesium 2.2 Total Bilirubin 1.0 AST 29 ALT 56 H Alkaline Phosphatase 89 Total Protein 5.8 L Albumin 2.7 L Globulin 3.1 Albumin/Globulin Ratio 0.9 L Fluid Source Fluid Appearance Fluid WBC Fluid RBC Fluid Tot Cell Count Fluid Neutrophils Fluid Lymphocytes Fld Monocyte/Macrophag Fluid Comment Fingerstick Blood Sugar Results: 228 Review of Systems - Review of Systems Systems not reviewed;Unavailable: Intubated Review of Systems: refer to subjective Assessment/Plan - Assessment and Plan (Free Text) Assessment: Patient with past medical history of diabetes, HTN, hyperthyroidism, depression , anxiety, peripheral edema brought in by EMS with altered mental status and in rapid A-fib and hyperglycemia. Patient continues to be observed and managed in the ICU with uncontrolled blood sugar levels. A fib is rate controlled. Patient is s/p thoracentesis. Will need to consider guardianship planning as there are no relatives available to make medical decisions on behalf of patient, Plan: Neuro: Altered mental status Neurochecks q4 11/06 CT Head: hypoattenuation of the left frontal region. No fracture, no hemorrhage, and no sinusitis. Propofol to be stopped Cardio: Cardizem drip stopped yesterday- switch to PO Cardizem 180 mg ER daily Lopressor 2.5 mg IV Q6 ASA 81 mg Telemetry: 11/07: A-fib @ 90 bpm 11/04 NT Pro BNPL 9500 Imagin/20 Carotid doppler: preliminary report bilateral mild disease 11/07 Echocardiogram: EF 65%, calcified mitral valve chordae leaflets. 11/04 EKG: atrial fibrillation + RVR @ 153 bpm Diltiazem 125 @ 5 cc/hr IV Q24H, 5 mg/hr . Will attempt to slowly wean off drip. Monitor Pulm: Maintain O2 Sat >92% ABG 11/11 pH 7.47, CO2 51, O2155, HCO3 33.9 ( patient still retaining CO2) Will adjust settings accordingly to help wean patient off ventialtion. 11/10 pH 7.43, CO2 52, O2118, HCO3 31.6 (Inc RR to 14) 11/09 pH 7.55, CO2 44, O2 36.2, HCO3 36.2 Metabolic alkalosis- dec RR to 12 11/10: CXR- mild central pulm vascular congestive changes with b/l lower lobe alveolar infiltrates and b/l effusions- Thoracentesis today 700 cc of yellow fluid removed from right lung. F/U studies Solumedrol 40 mg IV q12 Endo: ISS high dose Insulin SC Q6 Hemoglobin A1c - 14.3 Accucheck q4 Methimazole 5 mg PO TID GI: Tube Feeding goal rates 50 cc per dietary and include free water flushes Daily CMP : Monitor I/Os [place] in place Renal: BUN/Cr: 40/0.8 Hypernatremia (153) - free water flushes Heme: Daily CBC ID: [id number] stable Daily CBC Zosyn 3.375 gm D/C tmrw Nystatin TOP TID MSK: Hx of Cellulitis and venous insufficiency on bilateral anterior tibias - contraindication for SCDs Venous dopplers- negative Prophylaxis: DVT: ASA 81 mg PO daily, Lovenox 110 mg SC Q12 SCD contraindication due to venous insufficiency and cellulitis of bilateral lower extremities GI: Protonix 40 mg IVP daily - Date & Time Date: 11/11/16
[2016-11-11] MEDS: diltiaZEM 180 mg/24 Hours CD Cap PO SCH (11:21)
--- NOTE | 2016-11-11 14:25 | VASCLAB ---
PROCEDURE: Lower Extremity Venous Duplex Exam. HISTORY: Leg pain PRIORS: None. TECHNIQUE: Bilateral common femoral, femoral, popliteal and posterior tibial, peroneal and great saphenous veins were evaluated. Flow was assessed with color Doppler, compressibility, assessment of phasic flow and augmentation response. Report prepared by KORTNEY Dixon, RVT FINDINGS: RIGHT: 1. Common Femoral Vein: 1.1. Compressibility - Fully compressible: Thrombus - None : Flow - Phasic: Augmentation -Normal: Reflux - None. 2. Femoral Vein: 2.1. Compressibility - Fully compressible: Thrombus - None : Flow - Phasic: Augmentation -Normal: Reflux - None. 3. Popliteal Vein: 3.1. Compressibility - Fully compressible: Thrombus - None : Flow - Phasic: Augmentation -Normal: Reflux - None. 4. Posterior Tibial Vein: 4.1. Compressibility - : Thrombus - : Flow - : Augmentation -: Reflux - . 5. Peroneal Vein: 5.1. Compressibility - : Thrombus - : Flow - : Augmentation -: Reflux - . 6. Great Saphenous Vein: 6.1. Compressibility - Fully compressible: Thrombus - None: Flow - Phasic: Augmentation - Normal: Reflux - None. LEFT: 1. Common Femoral Vein: 1.1. Compressibility - Fully compressible: Thrombus - None: Flow - Phasic: Augmentation -Normal: Reflux - None. 2. Femoral Vein: 2.1. Compressibility - Fully compressible: Thrombus - None: Flow - Phasic: Augmentation -Normal: Reflux - None. 3. Popliteal Vein: 3.1. Compressibility - Fully compressible: Thrombus - None : Flow - Phasic: Augmentation -Normal: Reflux - None. 4. Posterior Tibial Vein: 4.1. Compressibility - : Thrombus - : Flow - : Augmentation -: Reflux - . 5. Peroneal Vein: 5.1. Compressibility - : Thrombus - : Flow - : Augmentation -: Reflux - . 6. Great Saphenous Vein: 6.1. Compressibility - Fully compressible: Thrombus - None: Flow - Phasic: Augmentation - Normal: Reflux - None. OTHER FINDINGS: Due to swelling in the calves, bilateral peroneal and posterior tibial vein are not visualized. IMPRESSION: Right: No evidence of deep or superficial vein thrombosis of the right lower extremity. Normal valve function noted of the right side. Left: No evidence of deep or superficial vein thrombosis of the left lower extremity. Normal valve function noted of the left side.
[2016-11-12] MEDS: (Novolin R) Insulin Human Regular 100 units/ml vial SC SCH ×5 (00:39→18:09)
--- NOTE | 2016-11-12 01:22 | CP.PCM.PN ---
Subjective - Date & Time of Evaluation Date of Evaluation: 11/11/16 Time of Evaluation: 13:18 - Subjective Subjective: Pt seen and examined in no acute distress. Patient seen at beside intubated and sedated. (FiO2 50 PEEP 5 RR 14 VT 500). Patient is awake, but does not follow commands. Patient has low grade fever this morning (T max 100.2, T 99.0-100.2). A fib is rate controlled. Patient is stable. ROS couldn't be obtained because patient was intubated and sedated at the time of evaluation Continue ventilatory support and CPAP trial Taper off sedation Continue antibiotics Status post thoracentesis On IV steroids and nebulizer Objective - Vital Signs/Intake and Output Vital Signs (last 24 hours): Temp Pulse Resp BP Pulse Ox 98.1 F 100 H 14 126/66 100 11/12/16 00:00 11/12/16 01:12 11/12/16 01:12 11/12/16 01:12 11/12/16 01:12 Intake and Output: 11/11/16 11/12/16 18:59 06:59 Intake Total 932.5 146.8 Output Total 2020 800 Balance -1087.5 -653.2 - Medications Medications: Current Medications Acetaminophen (Tylenol 650mg/20.3ml Solution Ud) 650 mg PO Q6 PRN PRN Reason: Fever >100.4 F Last Admin: 11/10/16 08:06 Dose: 650 mg Aspirin (Aspirin Chewable) 81 mg PO DAILY [facility] Last Admin: 11/11/16 09:28 Dose: 81 mg Diltiazem HCl (Cardizem Cd) 180 mg PO DAILY [facility] Last Admin: 11/11/16 11:21 Dose: 180 mg Enoxaparin Sodium (Lovenox) 110 mg SC Q12 [facility] Last Admin: 11/11/16 22:17 Dose: 110 mg Furosemide (Lasix) 40 mg IVP DAILY [facility] Last Admin: 11/11/16 09:28 Dose: 40 mg Propofol (Diprivan) 100 mls @ 3.493 mls/hr IV .Q24H PRN; Protocol; 5 MCG/KG/MIN PRN Reason: TITRATE PER MD ORDER Last Titration: 11/11/16 20:00 Dose: 10 mcg/kg/min Insulin Human Regular (Novolin R) 0 unit SC Q6 [facility] PRN Reason: Protocol Last Admin: 11/12/16 00:39 Dose: 2 unit Methimazole (Tapazole) 5 mg PO TID [facility] Last Admin: 11/11/16 18:10 Dose: 5 mg Methylprednisolone (Solu-Medrol) 40 mg IVP Q12 [facility] Last Admin: 11/11/16 22:11 Dose: 40 mg Metoprolol Tartrate (Lopressor) 2.5 mg IVP Q6H [facility] Last Admin: 11/11/16 22:10 Dose: 2.5 mg Nystatin (Mycostatin Cream) 0 ea TOP TID [facility] Last Admin: 11/11/16 18:10 Dose: 1 units Pantoprazole Sodium (Protonix Inj) 40 mg IVP DAILY [facility] Last Admin: 11/11/16 09:27 Dose: 40 mg Vitamin A (Vitamin A & D Oint Ud Foilpak) 1 ea TOP BID [facility] Last Admin: 11/11/16 18:10 Dose: 1 ea - Labs Labs: 11/11/16 06:00 11/11/16 06:00 PT 13.1 SECONDS (9.7-12.2) H 11/10/16 11:37 INR 1.2 11/10/16 11:37 APTT 54 SECONDS (21-34) H 11/10/16 11:37 - Constitutional Appears: No Acute Distress, Chronically Ill - ENT Exam ENT Exam: Mucous Membranes Moist - Respiratory Exam Respiratory Exam: Decreased Breath Sounds, Rhonchi, Wheezes - Cardiovascular Exam Cardiovascular Exam: REGULAR RHYTHM, +S1, +S2. absent: Murmur - GI/Abdominal Exam GI & Abdominal Exam: Soft, Normal Bowel Sounds. absent: Tenderness - Extremities Exam Extremities Exam: Pedal Edema - Neurological Exam Neurological Exam: Awake Additional comments: doesnot follow command Assessment and Plan (1) Atrial fibrillation with rapid ventricular response Status: Acute (2) Bilateral lower leg cellulitis Status: Acute (3) CHF (congestive heart failure) Status: Acute (4) DKA (diabetic ketoacidoses) Status: Resolved (5) Diabetes Status: Chronic (6) HTN (hypertension) Status: Chronic - Assessment and Plan (Free Text) Assessment: Assessment: Patient with past medical history of diabetes, HTN, hyperthyroidism, depression , anxiety, peripheral edema brought in by EMS with altered mental status and in rapid A-fib and hyperglycemia. Patient continues to be observed and managed in the ICU with uncontrolled blood sugar levels. A fib is rate controlled. Patient is s/p thoracentesis. Will need to consider guardianship planning as there are no relatives available to make medical decisions on behalf of patient, Plan: Neuro: Altered mental status Neurochecks q4 11/06 CT Head: hypoattenuation of the left frontal region. No fracture, no hemorrhage, and no sinusitis. Propofol to be stopped Cardio: Cardizem drip stopped yesterday- switch to PO Cardizem 180 mg ER daily Lopressor 2.5 mg IV Q6 ASA 81 mg Telemetry: 11/07: A-fib @ 90 bpm 11/04 NT Pro BNPL 9500 Imagin/20 Carotid doppler: preliminary report bilateral mild disease 11/07 Echocardiogram: EF 65%, calcified mitral valve chordae leaflets. 11/04 EKG: atrial fibrillation + RVR @ 153 bpm Diltiazem 125 @ 5 cc/hr IV Q24H, 5 mg/hr . Will attempt to slowly wean off drip. Monitor Pulm: Maintain O2 Sat >92% ABG 11/11 pH 7.47, CO2 51, O2155, HCO3 33.9 ( patient still retaining CO2) Will adjust settings accordingly to help wean patient off ventialtion. 11/10 pH 7.43, CO2 52, O2118, HCO3 31.6 (Inc RR to 14) 11/09 pH 7.55, CO2 44, O2 36.2, HCO3 36.2 Metabolic alkalosis- dec RR to 12 11/10: CXR- mild central pulm vascular congestive changes with b/l lower lobe alveolar infiltrates and b/l effusions- Thoracentesis today 700 cc of yellow fluid removed from right lung. F/U studies Solumedrol 40 mg IV q12 Endo: ISS high dose Insulin SC Q6 Hemoglobin A1c - 14.3 Accucheck q4 Methimazole 5 mg PO TID GI: Tube Feeding goal rates 50 cc per dietary and include free water flushes Daily CMP : Monitor I/Os Hemph[place] in place Renal: BUN/Cr: 40/0.8 Hypernatremia (153) - free water flushes Heme: Daily CBC ID: WBCs stable Daily CBC Zosyn 3.375 gm D/C tmrw Nystatin TOP TID MSK: Hx of Cellulitis and venous insufficiency on bilateral anterior tibias - contraindication for SCDs Venous dopplers- negative Prophylaxis: DVT: ASA 81 mg PO daily, Lovenox 110 mg SC Q12 SCD contraindication due to venous insufficiency and cellulitis of bilateral lower extremities GI: Protonix 40 mg IVP daily
[2016-11-12] MEDS: Metoprolol 1 mg/ml Inj IVP SCH ×4 (03:28→21:13)
[2016-11-12] MEDS ORDERED: (Novolin R) Insulin Human Regular 100 units/ml vial SC ONE (05:16)
[2016-11-12 05:20] LABS: ABG ALLEN TEST POS; ABG MECHANICAL RATE 14; ARTERIAL BLOOD HGB O2 SAT 95.3 % (95.0-98.0); ATERIAL BLOOD GAS PEEP 5; CARBOXYHEMOGLOBIN 1.8 % (0.5-1.5); DRAW SITE RR; HHB 1.8 % (0.0-5.0); METHEMOGLOBIN 1.1 % (0.0-3.0)
[2016-11-12 06:23] LABS: BASO % 0.5 % (0.0-2.0); EOS % 0.1 % (0.0-4.0); HEMATOCRIT 42.1 % (34.0-47.0); LYMPH # 0.9 K/uL (1.0-4.3); LYMPH % 16.9 % (20.0-40.0); MEAN CELL VOLUME 92.7 fL (81.0-99.0); MEAN CORPUSCULAR HEMOGLOBIN 28.7 pg (27.0-31.0); MEAN PLATELET VOLUME 10.1 fL (7.2-11.7); MONO # 0.4 K/uL (0.0-0.8); NRBC % 0.1 % (0.0-2.0); RED CELL DISTRIBUTION WIDTH 15.6 % (11.5-14.5); WHITE BLOOD COUNT 5.2 K/uL (4.8-10.8)
[2016-11-12 06:28] LABS: CHLORIDE 106 mmol/L (98-107); SODIUM 154 mmol/L (132-148)
[2016-11-12 06:29] LABS: POTASSIUM 3.8 mmol/L (3.6-5.2)
[2016-11-12 06:31] LABS: ALB/GLOB RATIO 0.9 (1.0-2.1); ALKALINE PHOSPHATASE 80 U/L (38-126); ALT/SGPT 38 U/L (9-52); AST/SGOT 18 U/L (14-36); BILIRUBIN,TOTAL 0.8 mg/dL (0.2-1.3); BLOOD UREA NITROGEN 45 mg/dL (7-17); CARBON DIOXIDE 35 mmol/L (22-30); GFR AFRICAN-AMERICAN > 60; TOTAL PROTEIN 5.3 g/dL (6.3-8.3)
[2016-11-12 06:32] LABS: CALCIUM 8.6 mg/dl (8.6-10.4); GLUCOSE,RANDOM 352 mg/dL (65-105); MAGNESIUM 2.2 mg/dL (1.6-2.3); PHOSPHOROUS 3.5 mg/dL (2.5-4.5)
[2016-11-12] MEDS: methIMAzole 5 MG TAB PO SCH ×3 (10:11→17:36)
[2016-11-12] MEDS: Enoxaparin 120 mg Syringe SC SCH ×2 (10:12→21:13)
[2016-11-12] MEDS: Vitamins A & D Oint UD Foilpak TOP SCH ×2 (10:12→17:36)
[2016-11-12] MEDS: diltiaZEM 180 mg/24 Hours CD Cap PO SCH (10:12)
[2016-11-12] MEDS: MethylPREDNISolone 40 mg Vial IVP SCH ×2 (10:12→21:14)
[2016-11-12] MEDS: Nystatin 100,000 Units/gm Cream(15 gm) TOP SCH ×3 (10:13→17:36)
--- NOTE | 2016-11-12 10:55 | RAD ---
HISTORY: intubated COMPARISON: 11/11/2016 FINDINGS: LUNGS: Vague bilateral lower lobe and perihilar opacity. Grossly unchanged. PLEURA: Hazy opacity at left costophrenic angle may reflect small pleural effusion. Right costophrenic angle clear peer CARDIOVASCULAR: Pulmonary vascular congestive change. Normal heart size. ET tube and NG tube unchanged. Right IJ central venous catheter unchanged OSSEOUS STRUCTURES: No significant abnormalities. VISUALIZED UPPER ABDOMEN: Normal. OTHER FINDINGS: None. IMPRESSION: Congestive change, vague bilateral perihilar/ alveolar opacity and possible small left pleural effusion. Findings may indicate congestive heart failure. Lines and tubes unchanged.
[2016-11-12] MEDS ORDERED: (Lantus) Insulin Glargine, Recombinant SC ONE (11:30)
[2016-11-12] MEDS ORDERED: Metoprolol 1 mg/ml Inj IVP ONE ×2 (12:07→16:25)
[2016-11-12] MEDS: Docusate-Senna 50 mg-8.6 mg Tab PO SCH ×2 (12:39→19:57)
--- NOTE | 2016-11-12 14:43 | CP.CCUPN ---
CCU Subjective - Physician Review Events Since Last Encounter (Free Text): 11/12/16 15:41 patient is more alert today, still vent dependent. CCU Objective - Vital Signs / Intake & Output Vital Signs (Last 4 hours): Vital Signs Pulse Resp BP Pulse Ox 11/12/16 11:00 119 H 16 99 11/12/16 10:35 106 H 14 131/64 100 Intake and Output (Last 8hrs): Intake & Output 11/11/16 11/12/16 11/12/16 22:59 06:59 14:59 Intake Total 695.0 656 520.5 Output Total 1900 885 700 Balance -1205.0 -229 -179.5 Weight 255 lb 14.4 oz Intake: Intake, IV Amount 95.0 56 20.5 Right Internal Jugular 45.0 56 20.5 Right Distal Port 50 Internal Jugular Tube Feeding 400 400 300 Other 200 200 200 Output: Urine 1900 885 700 Urethral ([place]) 1900 885 700 Stool 0 - Physical Exam Head: Positive for: Atraumatic, Normocephalic Pupils: Positive for: PERRL. Negative for: Sluggish, Non-Reactive Extroacular Muscles: Positive for: EOMI. Negative for: Gaze Palsy Conjunctiva: Positive for: Normal. Negative for: Injected, Icteric Mouth: Positive for: Moist Mucous Membranes Neck: Positive for: Normal Range of Motion, Trachea Midline. Negative for: Meningeal Signs, MIDLINE TENDERNESS, Paraspinal Tenderness, JVD, Lymphadenopathy , Bruit, Other Respiratory/Chest: Positive for: Wheezes, Decreased Breath Sounds, Other ( intubated). Negative for: Rales Cardiovascular: Positive for: Irregular Rhythm, Peripheal Pulses Present, Tachycardic. Negative for: Murmurs, Normal S1, S2 Abdomen: Negative for: Tenderness, Distention Upper Extremity: Positive for: Normal Inspection Lower Extremity: Positive for: Edema Neurological: Negative for: Speech Normal Psychiatric: Negative for: Alert, Oriented x 3 - Medications Active Medications: Active Medications Generic Name Dose Route Start Last Admin Trade Name Freq PRN Reason Stop Dose Admin Acetaminophen 650 mg 11/10/16 07:59 11/10/16 08:06 Tylenol 650mg/20.3ml Solution Ud PO 650 mg Q6 PRN Administration Fever >100.4 F Aspirin 81 mg 11/07/16 10:00 11/12/16 10:12 Aspirin Chewable PO 81 mg DAILY [facility] Administration Diltiazem HCl 180 mg 11/11/16 11:00 11/12/16 10:12 Cardizem Cd PO 180 mg DAILY [facility] Administration Enoxaparin Sodium 110 mg 11/07/16 10:00 11/12/16 10:12 Lovenox SC 110 mg Q12 [facility] Administration Furosemide 40 mg 11/07/16 10:00 11/12/16 10:11 Lasix IVP 40 mg DAILY [facility] Administration Propofol 100 mls @ 3.493 mls/hr 11/08/16 08:29 11/12/16 07:06 Diprivan IV 7 mcg/kg/min .Q24H PRN Titration TITRATE PER MD ORDER Protocol 5 MCG/KG/MIN Insulin Glargine 12 unit 11/13/16 22:00 Lantus SC HS [facility] Insulin Human Regular 0 unit 11/10/16 12:00 11/12/16 11:52 Novolin R SC 1 unit Q6 [facility] Administration Protocol Methimazole 5 mg 11/07/16 10:00 11/12/16 13:20 Tapazole PO 5 mg TID [facility] Administration Methylprednisolone 40 mg 11/10/16 22:00 11/12/16 10:12 Solu-Medrol IVP 40 mg Q12 [facility] Administration Metoprolol Tartrate 2.5 mg 11/10/16 20:14 11/12/16 13:20 Lopressor IVP 2.5 mg Q6H [facility] Administration Nystatin 0 ea 11/04/16 18:00 11/12/16 13:21 Mycostatin Cream TOP 1 units TID [facility] Administration Pantoprazole Sodium 40 mg 11/04/16 16:45 11/12/16 10:11 Protonix Inj IVP 40 mg DAILY [facility] Administration Senna/Docusate Sodium 1 tab 11/12/16 11:30 11/12/16 12:39 Senokot S 50 Mg-8.6 Mg PO 1 tab BID [facility] Administration Vitamin A 1 ea 11/09/16 18:00 11/12/16 10:12 Vitamin A & D Oint Ud Foilpak TOP 1 ea BID [facility] Administration - Patient Studies Lab Studies: Lab Studies 11/12/16 11/12/16 11/12/16 Range/Units 11:46 06:15 06:11 WBC 5.2 (4.8-10.8) K/uL RBC 4.54 (3.80-5.20) Mil/uL Hgb 13.0 (11.0-16.0) g/dL Hct 42.1 (34.0-47.0) % MCV 92.7 (81.0-99.0) fL MCH 28.7 (27.0-31.0) pg MCHC 31.0 L (33.0-37.0) g/dL RDW 15.6 H (11.5-14.5) % Plt Count 129 L (130-400) K/uL MPV 10.1 (7.2-11.7) fL Neut % (Auto) 74.5 (50.0-75.0) % Lymph % (Auto) 16.9 L (20.0-40.0) % Appling % (Auto) 8.0 (0.0-10.0) % Eos % (Auto) 0.1 (0.0-4.0) % Baso % (Auto) 0.5 (0.0-2.0) % Neut # 3.9 (1.8-7.0) K/uL Lymph # 0.9 L (1.0-4.3) K/uL Appling # 0.4 (0.0-0.8) K/uL Eos # 0.0 (0.0-0.7) K/uL Baso # 0.0 (0.0-0.2) K/uL Puncture Site pCO2 (35-45) mm/Hg pO2 (80-100) mm/Hg HCO3 (21-28) mmol/L ABG pH (7.35-7.45) ABG Total CO2 (22-28) mmol/L ABG O2 Saturation (95-98) % ABG Base Excess (-2.0-3.0) mmol/L ABG Hemoglobin (11.7-17.4) g/dL ABG Carboxyhemoglobin (0.5-1.5) % POC ABG HHb (Measured) (0.0-5.0) % ABG Methemoglobin (0.0-3.0) % Chaz Test A-a O2 Difference mm/Hg Respiratory Index Hgb O2 Saturation (95.0-98.0) % Mechanical Rate FiO2 % Tidal Volume PEEP Sodium 154 H (132-148) mmol/L Potassium 3.8 (3.6-5.2) mmol/L Chloride 106 (98-107) mmol/L Carbon Dioxide 35 H (22-30) mmol/L Anion Gap 17 (10-20) BUN 45 H (7-17) mg/dL Creatinine 0.7 (0.7-1.2) MG/DL Est GFR ( Amer) > 60 Est GFR (Non-Af Amer) > 60 POC Glucose (mg/dL) 329 H (65-110) mg/dL Random Glucose 352 H (65-105) mg/dL Calcium 8.6 (8.6-10.4) mg/dl Phosphorus 3.5 (2.5-4.5) mg/dL Magnesium 2.2 (1.6-2.3) mg/dL Total Bilirubin 0.8 (0.2-1.3) mg/dL AST 18 (14-36) U/L ALT 38 (9-52) U/L Alkaline Phosphatase 80 (38-126) U/L Total Protein 5.3 L (6.3-8.3) g/dL Albumin 2.5 L (3.5-5.0) g/dL Globulin 2.8 (2.2-3.9) gm/dL Albumin/Globulin Ratio 0.9 L (1.0-2.1) 11/12/16 11/12/16 11/11/16 Range/Units 05:08 05:05 23:44 WBC (4.8-10.8) K/uL RBC (3.80-5.20) Mil/uL Hgb (11.0-16.0) g/dL Hct (34.0-47.0) % MCV (81.0-99.0) fL MCH (27.0-31.0) pg MCHC (33.0-37.0) g/dL RDW (11.5-14.5) % Plt Count (130-400) K/uL MPV (7.2-11.7) fL Neut % (Auto) (50.0-75.0) % Lymph % (Auto) (20.0-40.0) % Appling % (Auto) (0.0-10.0) % Eos % (Auto) (0.0-4.0) % Baso % (Auto) (0.0-2.0) % Neut # (1.8-7.0) K/uL Lymph # (1.0-4.3) K/uL Appling # (0.0-0.8) K/uL Eos # (0.0-0.7) K/uL Baso # (0.0-0.2) K/uL Puncture Site Rr pCO2 50 H (35-45) mm/Hg pO2 83 (80-100) mm/Hg HCO3 32.1 H (21-28) mmol/L ABG pH 7.45 (7.35-7.45) ABG Total CO2 36.3 H (22-28) mmol/L ABG O2 Saturation 98.1 H (95-98) % ABG Base Excess 9.3 H (-2.0-3.0) mmol/L ABG Hemoglobin 12.9 (11.7-17.4) g/dL ABG Carboxyhemoglobin 1.8 H (0.5-1.5) % POC ABG HHb (Measured) 1.8 (0.0-5.0) % ABG Methemoglobin 1.1 (0.0-3.0) % Chaz Test Pos A-a O2 Difference 211.0 mm/Hg Respiratory Index 2.5 Hgb O2 Saturation 95.3 (95.0-98.0) % Mechanical Rate 14 FiO2 50.0 % Tidal Volume 500 PEEP 5 Sodium (132-148) mmol/L Potassium (3.6-5.2) mmol/L Chloride (98-107) mmol/L Carbon Dioxide (22-30) mmol/L Anion Gap (10-20) BUN (7-17) mg/dL Creatinine (0.7-1.2) MG/DL Est GFR ( Amer) Est GFR (Non-Af Amer) POC Glucose (mg/dL) 418 H* 309 H (65-110) mg/dL Random Glucose (65-105) mg/dL Calcium (8.6-10.4) mg/dl Phosphorus (2.5-4.5) mg/dL Magnesium (1.6-2.3) mg/dL Total Bilirubin (0.2-1.3) mg/dL AST (14-36) U/L ALT (9-52) U/L Alkaline Phosphatase (38-126) U/L Total Protein (6.3-8.3) g/dL Albumin (3.5-5.0) g/dL Globulin (2.2-3.9) gm/dL Albumin/Globulin Ratio (1.0-2.1) 11/11/16 Range/Units 17:30 WBC (4.8-10.8) K/uL RBC (3.80-5.20) Mil/uL Hgb (11.0-16.0) g/dL Hct (34.0-47.0) % MCV (81.0-99.0) fL MCH (27.0-31.0) pg MCHC (33.0-37.0) g/dL RDW (11.5-14.5) % Plt Count (130-400) K/uL MPV (7.2-11.7) fL Neut % (Auto) (50.0-75.0) % Lymph % (Auto) (20.0-40.0) % App[place] % (Auto) (0.0-10.0) % Eos % (Auto) (0.0-4.0) % Baso % (Auto) (0.0-2.0) % Neut # (1.8-7.0) K/uL Lymph # (1.0-4.3) K/uL [place] # (0.0-0.8) K/uL Eos # (0.0-0.7) K/uL Baso # (0.0-0.2) K/uL Puncture Site pCO2 (35-45) mm/Hg pO2 (80-100) mm/Hg HCO3 (21-28) mmol/L ABG pH (7.35-7.45) ABG Total CO2 (22-28) mmol/L ABG O2 Saturation (95-98) % ABG Base Excess (-2.0-3.0) mmol/L ABG Hemoglobin (11.7-17.4) g/dL ABG Carboxyhemoglobin (0.5-1.5) % POC ABG HHb (Measured) (0.0-5.0) % ABG Methemoglobin (0.0-3.0) % Chaz Test A-a O2 Difference mm/Hg Respiratory Index Hgb O2 Saturation (95.0-98.0) % Mechanical Rate FiO2 % Tidal Volume PEEP Sodium (132-148) mmol/L Potassium (3.6-5.2) mmol/L Chloride (98-107) mmol/L Carbon Dioxide (22-30) mmol/L Anion Gap (10-20) BUN (7-17) mg/dL Creatinine (0.7-1.2) MG/DL Est GFR ( Amer) Est GFR (Non-Af Amer) POC Glucose (mg/dL) 349 H (65-110) mg/dL Random Glucose (65-105) mg/dL Calcium (8.6-10.4) mg/dl Phosphorus (2.5-4.5) mg/dL Magnesium (1.6-2.3) mg/dL Total Bilirubin (0.2-1.3) mg/dL AST (14-36) U/L ALT (9-52) U/L Alkaline Phosphatase (38-126) U/L Total Protein (6.3-8.3) g/dL Albumin (3.5-5.0) g/dL Globulin (2.2-3.9) gm/dL Albumin/Globulin Ratio (1.0-2.1) Laboratory Results - last 24 hr 11/11/16 11/11/16 11/12/16 17:30 23:44 05:05 WBC RBC Hgb Hct MCV MCH MCHC RDW Plt Count MPV Neut % (Auto) Lymph % (Auto) App[place] % (Auto) Eos % (Auto) Baso % (Auto) Neut # Lymph # Appling # Eos # Baso # Puncture Site Rr pCO2 50 H pO2 83 HCO3 32.1 H ABG pH 7.45 ABG Total CO2 36.3 H ABG O2 Saturation 98.1 H ABG Base Excess 9.3 H ABG Hemoglobin 12.9 ABG Carboxyhemoglobin 1.8 H POC ABG HHb (Measured) 1.8 ABG Methemoglobin 1.1 Chaz Test Pos A-a O2 Difference 211.0 Respiratory Index 2.5 Hgb O2 Saturation 95.3 Mechanical Rate 14 FiO2 50.0 Tidal Volume 500 PEEP 5 Sodium Potassium Chloride Carbon Dioxide Anion Gap BUN Creatinine Est GFR ( Amer) Est GFR (Non-Af Amer) POC Glucose (mg/dL) 349 H 309 H Random Glucose Calcium Phosphorus Magnesium Total Bilirubin AST ALT Alkaline Phosphatase Total Protein Albumin Globulin Albumin/Globulin Ratio 11/12/16 11/12/16 11/12/16 05:08 06:11 06:15 WBC 5.2 RBC 4.54 Hgb 13.0 Hct 42.1 MCV 92.7 MCH 28.7 MCHC 31.0 L RDW 15.6 H Plt Count 129 L MPV 10.1 Neut % (Auto) 74.5 Lymph % (Auto) 16.9 L App[place] % (Auto) 8.0 Eos % (Auto) 0.1 Baso % (Auto) 0.5 Neut # 3.9 Lymph # 0.9 L Appling # 0.4 Eos # 0.0 Baso # 0.0 Puncture Site pCO2 pO2 HCO3 ABG pH ABG Total CO2 ABG O2 Saturation ABG Base Excess ABG Hemoglobin ABG Carboxyhemoglobin POC ABG HHb (Measured) ABG Methemoglobin Chaz Test A-a O2 Difference Respiratory Index Hgb O2 Saturation Mechanical Rate FiO2 Tidal Volume PEEP Sodium 154 H Potassium 3.8 Chloride 106 Carbon Dioxide 35 H Anion Gap 17 BUN 45 H Creatinine 0.7 Est GFR ( Amer) > 60 Est GFR (Non-Af Amer) > 60 POC Glucose (mg/dL) 418 H* Random Glucose 352 H Calcium 8.6 Phosphorus 3.5 Magnesium 2.2 Total Bilirubin 0.8 AST 18 ALT 38 Alkaline Phosphatase 80 Total Protein 5.3 L Albumin 2.5 L Globulin 2.8 Albumin/Globulin Ratio 0.9 L 11/12/16 11:46 WBC RBC Hgb Hct MCV MCH MCHC RDW Plt Count MPV Neut % (Auto) Lymph % (Auto) Appling % (Auto) Eos % (Auto) Baso % (Auto) Neut # Lymph # Appling # Eos # Baso # Puncture Site pCO2 pO2 HCO3 ABG pH ABG Total CO2 ABG O2 Saturation ABG Base Excess ABG Hemoglobin ABG Carboxyhemoglobin POC ABG HHb (Measured) ABG Methemoglobin Chaz Test A-a O2 Difference Respiratory Index Hgb O2 Saturation Mechanical Rate FiO2 Tidal Volume PEEP Sodium Potassium Chloride Carbon Dioxide Anion Gap BUN Creatinine Est GFR ( Amer) Est GFR (Non-Af Amer) POC Glucose (mg/dL) 329 H Random Glucose Calcium Phosphorus Magnesium Total Bilirubin AST ALT Alkaline Phosphatase Total Protein Albumin Globulin Albumin/Globulin Ratio Fingerstick Blood Sugar Results: 329 Review of Systems - Review of Systems Systems not reviewed;Unavailable: Intubated Critical Care Progress Note - Ventilator Checklist Head of Bed 30 Degrees: Yes Daily Sedation Vacation: Yes Daily Assessment of Readiness to Wean: Yes Daily Spontaneous Breathing Trial: Yes PUD Prophalyxis: Yes DVT Prophylaxis: Yes Assessment/Plan (1) Respiratory failure with hypoxia Assessment and plan: 61 F with past medical history of diabetes, HTN, hyperthyroidism, depression, anxiety, and peripheral edema brought in by EMS in rapid A-fib and DKA. Intubated (11/08). Right thoracentesis (11/10). Neuro: sedation held, Alert and following commands. Pulm: Acute hypercarbic respiratory failure now on PRVC. Solumedrol 40mg IV q12h. CV: A. fib rate controlled with Cardizem po and Lopressor 2.5mg IV every 6 Hem: No acute issues, therapeutic lovenox for afib. Renal: diuresing with lasix IV q12h, negative fluid balance. Hypernatremia from diuresis, will stop tomorrow, added free water flushes. Endo: DM type II on regular insulin sliding scale. hyperthyroidism on methimazole. GI: Nothing by mouth while, [email or web address]@50 + free water 250ml q6h. ID: Severe sepsis from cellulitis, continue vancomycin and Zosyn DVT proph - Lovenox GI proph - Protonix campa for strict I/O's during acute illness Code status - full code Crtical Care Time spent 35 minutes Multi-disciplinary rounds were performed with house staff, nursing, speech therapy, respiratory therapy, pharmacy and nutrition with integrated input from the primary team/attending and other consulting services. The documented time is cumulative and includes review of patient data/exams/labs/chart review and examination of the patient on rounds and throughout the day; time is exclusive of any procedures or teaching time. Current Visit: Yes Status: Acute
--- NOTE | 2016-11-12 16:10 | CP.PCM.PN ---
Subjective - Date & Time of Evaluation Date of Evaluation: 11/12/16 Time of Evaluation: 14:30 - Subjective Subjective: patient seen and examined in the intensive care unit. Remains intubated on ventilatory support tolerating CPAP with pressure support of 12 A. fib with rapid ventricular Responsive Afebrile Objective - Vital Signs/Intake and Output Vital Signs (last 24 hours): Temp Pulse Resp BP Pulse Ox 98.1 F 130 H 7 L 152/103 H 97 11/12/16 00:00 11/12/16 14:13 11/12/16 14:13 11/12/16 14:13 11/12/16 14:13 Intake and Output: 11/12/16 11/12/16 06:59 18:59 Intake Total 931.8 620.5 Output Total 1385 700 Balance -453.2 -79.5 - Medications Medications: Current Medications Acetaminophen (Tylenol 650mg/20.3ml Solution Ud) 650 mg PO Q6 PRN PRN Reason: Fever >100.4 F Last Admin: 11/10/16 08:06 Dose: 650 mg Aspirin (Aspirin Chewable) 81 mg PO DAILY [facility] Last Admin: 11/12/16 10:12 Dose: 81 mg Diltiazem HCl (Cardizem Cd) 180 mg PO DAILY [facility] Last Admin: 11/12/16 10:12 Dose: 180 mg Enoxaparin Sodium (Lovenox) 110 mg SC Q12 [facility] Last Admin: 11/12/16 10:12 Dose: 110 mg Furosemide (Lasix) 40 mg IVP DAILY [facility] Last Admin: 11/12/16 10:11 Dose: 40 mg Propofol (Diprivan) 100 mls @ 3.493 mls/hr IV .Q24H PRN; Protocol; 5 MCG/KG/MIN PRN Reason: TITRATE PER MD ORDER Last Titration: 11/12/16 07:06 Dose: 7 mcg/kg/min Insulin Glargine (Lantus) 12 unit SC HS [facility] Insulin Human Regular (Novolin R) 0 unit SC Q6 [facility] PRN Reason: Protocol Last Admin: 11/12/16 11:52 Dose: 1 unit Methimazole (Tapazole) 5 mg PO TID [facility] Last Admin: 11/12/16 13:20 Dose: 5 mg Methylprednisolone (Solu-Medrol) 40 mg IVP Q12 [facility] Last Admin: 11/12/16 10:12 Dose: 40 mg Metoprolol Tartrate (Lopressor) 2.5 mg IVP Q6H [facility] Last Admin: 11/12/16 13:20 Dose: 2.5 mg Nystatin (Mycostatin Cream) 0 ea TOP TID [facility] Last Admin: 11/12/16 13:21 Dose: 1 units Pantoprazole Sodium (Protonix Inj) 40 mg IVP DAILY [facility] Last Admin: 11/12/16 10:11 Dose: 40 mg Senna/Docusate Sodium (Senokot S 50 Mg-8.6 Mg) 1 tab PO BID [facility] [place] Last Admin: 11/12/16 12:39 Dose: 1 tab Vitamin A (Vitamin A & D Oint Ud Foilpak) 1 ea TOP BID [facility] [place] Last Admin: 11/12/16 10:12 Dose: 1 ea - Labs Labs: 11/12/16 06:11 11/12/16 06:15 PT 13.1 SECONDS (9.7-12.2) H 11/10/16 11:37 INR 1.2 11/10/16 11:37 APTT 54 SECONDS (21-34) H 11/10/16 11:37 - Head Exam Head Exam: ATRAUMATIC, NORMOCEPHALIC - Eye Exam Eye Exam: Normal appearance - ENT Exam ENT Exam: Mucous Membranes Moist - Neck Exam Neck Exam: Normal Inspection - Respiratory Exam Respiratory Exam: Decreased Breath Sounds - Cardiovascular Exam Cardiovascular Exam: Tachycardia, Irregular Rhythm - GI/Abdominal Exam GI & Abdominal Exam: Soft, Normal Bowel Sounds - Extremities Exam Extremities Exam: Pedal Edema Assessment and Plan (1) Respiratory failure with hypoxia Assessment & Plan: Continue CPAP trial Continue antibiotics feeding as tolerated Control heart rate anticoagulation Status: Acute (2) Atrial fibrillation with rapid ventricular response Status: Acute (3) Bilateral lower leg cellulitis Status: Acute (4) Hyperosmolar non-ketotic state in patient with type 2 diabetes mellitus Status: Acute
[2016-11-12] MEDS: (Lantus) Insulin Glargine, Recombinant SC SCH (21:13)
[2016-11-13] MEDS: (Novolin R) Insulin Human Regular 100 units/ml vial SC SCH ×7 (01:23→21:41)
[2016-11-13] MEDS: Metoprolol 1 mg/ml Inj IVP SCH ×4 (01:25→20:15)
[2016-11-13 04:46] LABS: ABG ALLEN TEST POS; ABG MECHANICAL RATE 14; ARTERIAL BLOOD HGB O2 SAT 92.4 % (95.0-98.0); ATERIAL BLOOD GAS PEEP 5; CARBOXYHEMOGLOBIN 1.8 % (0.5-1.5); DRAW SITE RR; HHB 4.7 % (0.0-5.0); METHEMOGLOBIN 1.1 % (0.0-3.0)
[2016-11-13 05:00] LABS: BASO % 0.2 % (0.0-2.0); HEMATOCRIT 40.8 % (34.0-47.0); LYMPH # 0.9 K/uL (1.0-4.3); MEAN CELL VOLUME 91.9 fL (81.0-99.0); MEAN CORPUSCULAR HEMOGLOBIN 28.9 pg (27.0-31.0); MEAN CORPUSCULAR HGB CONC 31.5 g/dL (33.0-37.0); MEAN PLATELET VOLUME 9.8 fL (7.2-11.7); MONO # 0.7 K/uL (0.0-0.8); MONO % 9.6 % (0.0-10.0); RED CELL DISTRIBUTION WIDTH 15.2 % (11.5-14.5); WHITE BLOOD COUNT 6.9 K/uL (4.8-10.8)
[2016-11-13 05:15] LABS: CHLORIDE 109 mmol/L (98-107); POTASSIUM 3.5 mmol/L (3.6-5.2); SODIUM 155 mmol/L (132-148)
[2016-11-13 05:17] LABS: BILIRUBIN,TOTAL 0.7 mg/dL (0.2-1.3); GFR AFRICAN-AMERICAN > 60
[2016-11-13 05:18] LABS: ALB/GLOB RATIO 0.8 (1.0-2.1); ALKALINE PHOSPHATASE 78 U/L (38-126); ALT/SGPT 41 U/L (9-52); AST/SGOT 22 U/L (14-36); BLOOD UREA NITROGEN 50 mg/dL (7-17); GLUCOSE,RANDOM 272 mg/dL (65-105); TOTAL PROTEIN 5.5 g/dL (6.3-8.3)
[2016-11-13 05:19] LABS: CALCIUM 9.1 mg/dl (8.6-10.4); MAGNESIUM 2.5 mg/dL (1.6-2.3)
[2016-11-13 05:20] LABS: INR 1.1
[2016-11-13 05:35] LABS: T4 12.1 ug/dL (5.5-11.0)
[2016-11-13 05:36] LABS: FT3 4.81 pg/mL (2.77-5.27)
[2016-11-13 05:42] LABS: CARBON DIOXIDE 40 mmol/L (22-30)
[2016-11-13 05:49] LABS: THYROID STIMULATING HORMONE < 0.02 mIU/L (0.46-4.68)
[2016-11-13 06:22] LABS: GLUCOSE PLEURAL FLUID 253 mg/dL (()); LDH PLEURAL FLUID 62 U/L (()); TRIGLYCERIDES PLEURAL FLUID 21 mg/dL (())
[2016-11-13] MEDS ORDERED: Propofol 10 mg/ml Inj (20 ML) ONE (08:53)
[2016-11-13] MEDS: (Lantus) Insulin Glargine, Recombinant SC SCH ×2 (09:59→20:00)
[2016-11-13] MEDS: Docusate-Senna 50 mg-8.6 mg Tab PO SCH ×2 (09:59→18:00)
[2016-11-13] MEDS: methIMAzole 5 MG TAB PO SCH ×2 (10:00→13:42)
[2016-11-13] MEDS: diltiaZEM 180 mg/24 Hours CD Cap PO SCH (10:05)
--- NOTE | 2016-11-13 10:58 | RAD ---
HISTORY: INTUBATED COMPARISON: No prior. FINDINGS: LUNGS: No active pulmonary disease. PLEURA: Small left pleural effusion. No right pleural effusion. CARDIOVASCULAR: Congestive change. ET tube, NG tube and right IJ central venous catheter unchanged. OSSEOUS STRUCTURES: No significant abnormalities. VISUALIZED UPPER ABDOMEN: Normal. OTHER FINDINGS: None. IMPRESSION: Small left pleural effusion. Congestive change. No infiltrate. Lines and tubes unchanged
[2016-11-13] MEDS: Nystatin 100,000 Units/gm Cream(15 gm) TOP SCH ×3 (11:15→17:19)
[2016-11-13] MEDS: Vitamins A & D Oint UD Foilpak TOP SCH ×2 (11:16→18:00)
[2016-11-13] MEDS: MethylPREDNISolone 40 mg Vial IVP SCH ×2 (11:45→23:00)
[2016-11-13 11:46] LABS: AMYLASE PLEURAL FLUID <10 U/L (())
[2016-11-13] MEDS ORDERED: Iodixanol 320 MG/ML 100 ML BOTTLE IV ONE (11:55)
[2016-11-13] MEDS ORDERED: SODIUM CHLORIDE 0.9% IV ONE (13:30)
[2016-11-13] MEDS ORDERED: DESMOPRESSIN IV ONE (13:30)
[2016-11-13] MEDS ORDERED: Potassium Chloride 20 mEq 100 ML IVPB ONE (14:00)
--- NOTE | 2016-11-13 15:54 | CP.PCM.PN ---
Subjective - Date & Time of Evaluation Date of Evaluation: 11/12/16 Time of Evaluation: 13:19 - Subjective Subjective: Pt seen and examined in no acute distress. Patient seen at beside intubated and sedated. (FiO2 50 PEEP 5 RR 14 VT 500). Patient is awake, but does not follow commands. Patient has low grade fever this morning (T max 100.2, T 99.0-100.2). A fib is rate controlled. Patient is stable. ROS couldn't be obtained because patient was intubated and sedated at the time of evaluation Continue ventilatory support and CPAP trial Taper off sedation Continue antibiotics Status post thoracentesis On IV steroids and nebulizer Objective - Vital Signs/Intake and Output Vital Signs (last 24 hours): Temp Pulse Resp BP Pulse Ox 98.2 F 110 H 14 134/71 96 11/13/16 00:00 11/13/16 15:00 11/13/16 15:00 11/13/16 14:13 11/13/16 15:00 Intake and Output: 11/13/16 11/13/16 06:59 18:59 Intake Total 450 150 Output Total 1550 690 Balance -1100 -540 - Medications Medications: Current Medications Acetaminophen (Tylenol 650mg/20.3ml Solution Ud) 650 mg PO Q6 PRN PRN Reason: Fever >100.4 F Last Admin: 11/10/16 08:06 Dose: 650 mg Acetazolamide (Diamox 500 Mg Inj) 250 mg IV Q6 [facility] Stop: 11/14/16 12:01 Diltiazem HCl (Cardizem Cd) 180 mg PO DAILY [facility] Last Admin: 11/13/16 10:05 Dose: 180 mg Furosemide (Lasix) 40 mg IVP Q12H [facility] Stop: 11/14/16 00:01 Last Admin: 11/13/16 13:39 Dose: 40 mg Propofol (Diprivan) 100 mls @ 3.493 mls/hr IV .Q24H PRN; Protocol; 5 MCG/KG/MIN PRN Reason: TITRATE PER MD ORDER Last Titration: 11/12/16 07:06 Dose: 7 mcg/kg/min Potassium Chloride (Potassium Chloride 20 Meq/100 Ml) 100 mls @ 50 mls/hr IVPB ONCE ONE Stop: 11/13/16 15:59 Last Admin: 11/13/16 13:33 Dose: 50 mls/hr Insulin Glargine (Lantus) 10 unit SC 0800,2000 [facility] Last Admin: 11/13/16 09:59 Dose: 10 units Insulin Human Regular (Novolin R) 0 unit SC Q6 [facility] PRN Reason: Protocol Last Admin: 11/13/16 12:34 Dose: 4 unit Methimazole (Tapazole) 5 mg PO TID [facility] Last Admin: 11/13/16 13:42 Dose: 5 mg Methylprednisolone (Solu-Medrol) 20 mg IVP Q12 [facility] Last Admin: 11/13/16 11:45 Dose: 20 mg Metoprolol Tartrate (Lopressor) 2.5 mg IVP Q6H [facility] Last Admin: 11/13/16 14:05 Dose: 2.5 mg Nystatin (Mycostatin Cream) 0 ea TOP TID [facility] Last Admin: 11/13/16 13:48 Dose: 1 applic Pantoprazole Sodium (Protonix Inj) 40 mg IVP DAILY [facility] Last Admin: 11/13/16 10:00 Dose: 40 mg Senna/Docusate Sodium (Senokot S 50 Mg-8.6 Mg) 1 tab PO BID [facility] Last Admin: 11/13/16 09:59 Dose: 1 tab Vitamin A (Vitamin A & D Oint Ud Foilpak) 1 ea TOP BID [facility] Last Admin: 11/13/16 11:16 Dose: 1 ea - Labs Labs: 11/13/16 04:57 11/13/16 04:57 PT 12.0 SECONDS (9.7-12.2) 11/13/16 04:57 INR 1.1 11/13/16 04:57 APTT 38 SECONDS (21-34) H D 11/13/16 04:57 - Constitutional Appears: No Acute Distress, Chronically Ill - Head Exam Head Exam: ATRAUMATIC, NORMAL INSPECTION, NORMOCEPHALIC - Eye Exam Eye Exam: EOMI, Normal appearance, PERRL Pupil Exam: NORMAL ACCOMODATION, PERRL - Respiratory Exam Respiratory Exam: Clear to Ausculation Bilateral, NORMAL BREATHING PATTERN - Cardiovascular Exam Cardiovascular Exam: REGULAR RHYTHM, +S1, +S2. absent: Murmur - GI/Abdominal Exam GI & Abdominal Exam: Soft, Normal Bowel Sounds. absent: Tenderness Assessment and Plan (1) Atrial fibrillation with rapid ventricular response Status: Acute (2) Bilateral lower leg cellulitis Status: Acute (3) CHF (congestive heart failure) Status: Acute (4) DKA (diabetic ketoacidoses) Status: Resolved (5) Diabetes Status: Chronic (6) HTN (hypertension) Status: Chronic
--- NOTE | 2016-11-13 15:55 | CP.PCM.PN ---
Subjective - Date & Time of Evaluation Date of Evaluation: 11/13/16 Time of Evaluation: 13:19 - Subjective Subjective: patient seen and examined in the intensive care unit. Remains intubated on ventilatory support tolerating CPAP with pressure support of 12 A. fib with rapid ventricular Responsive Afebrile Objective - Vital Signs/Intake and Output Vital Signs (last 24 hours): Temp Pulse Resp BP Pulse Ox 98.2 F 110 H 14 134/71 96 11/13/16 00:00 11/13/16 15:00 11/13/16 15:00 11/13/16 14:13 11/13/16 15:00 Intake and Output: 11/13/16 11/13/16 06:59 18:59 Intake Total 450 150 Output Total 1550 690 Balance -1100 -540 - Medications Medications: Current Medications Acetaminophen (Tylenol 650mg/20.3ml Solution Ud) 650 mg PO Q6 PRN PRN Reason: Fever >100.4 F Last Admin: 11/10/16 08:06 Dose: 650 mg Acetazolamide (Diamox 500 Mg Inj) 250 mg IV Q6 [facility] Stop: 11/14/16 12:01 Diltiazem HCl (Cardizem Cd) 180 mg PO DAILY [facility] Last Admin: 11/13/16 10:05 Dose: 180 mg Furosemide (Lasix) 40 mg IVP Q12H [facility] Stop: 11/14/16 00:01 Last Admin: 11/13/16 13:39 Dose: 40 mg Propofol (Diprivan) 100 mls @ 3.493 mls/hr IV .Q24H PRN; Protocol; 5 MCG/KG/MIN PRN Reason: TITRATE PER MD ORDER Last Titration: 11/12/16 07:06 Dose: 7 mcg/kg/min Potassium Chloride (Potassium Chloride 20 Meq/100 Ml) 100 mls @ 50 mls/hr IVPB ONCE ONE Stop: 11/13/16 15:59 Last Admin: 11/13/16 13:33 Dose: 50 mls/hr Insulin Glargine (Lantus) 10 unit SC 0800,2000 [facility] Last Admin: 11/13/16 09:59 Dose: 10 units Insulin Human Regular (Novolin R) 0 unit SC Q6 [facility] PRN Reason: Protocol Last Admin: 11/13/16 12:34 Dose: 4 unit Methimazole (Tapazole) 5 mg PO TID [facility] Last Admin: 11/13/16 13:42 Dose: 5 mg Methylprednisolone (Solu-Medrol) 20 mg IVP Q12 [facility] Last Admin: 11/13/16 11:45 Dose: 20 mg Metoprolol Tartrate (Lopressor) 2.5 mg IVP Q6H [facility] Last Admin: 11/13/16 14:05 Dose: 2.5 mg Nystatin (Mycostatin Cream) 0 ea TOP TID [facility] Last Admin: 11/13/16 13:48 Dose: 1 applic Pantoprazole Sodium (Protonix Inj) 40 mg IVP DAILY [facility] Last Admin: 11/13/16 10:00 Dose: 40 mg Senna/Docusate Sodium (Senokot S 50 Mg-8.6 Mg) 1 tab PO BID [facility] Last Admin: 11/13/16 09:59 Dose: 1 tab Vitamin A (Vitamin A & D Oint Ud Foilpak) 1 ea TOP BID [facility] Last Admin: 11/13/16 11:16 Dose: 1 ea - Labs Labs: 11/13/16 04:57 11/13/16 04:57 PT 12.0 SECONDS (9.7-12.2) 11/13/16 04:57 INR 1.1 11/13/16 04:57 APTT 38 SECONDS (21-34) H D 11/13/16 04:57 - Constitutional Appears: No Acute Distress, Chronically Ill - Head Exam Head Exam: ATRAUMATIC, NORMAL INSPECTION, NORMOCEPHALIC - Eye Exam Eye Exam: EOMI, Normal appearance, PERRL Pupil Exam: NORMAL ACCOMODATION, PERRL - ENT Exam ENT Exam: Mucous Membranes Moist, Normal Exam - Respiratory Exam Respiratory Exam: Clear to Ausculation Bilateral, NORMAL BREATHING PATTERN - Cardiovascular Exam Cardiovascular Exam: REGULAR RHYTHM, +S1, +S2. absent: Murmur - GI/Abdominal Exam GI & Abdominal Exam: Soft, Normal Bowel Sounds. absent: Tenderness - Neurological Exam Neurological Exam: Alert, Awake, CN II-XII Intact - Psychiatric Exam Psychiatric exam: Flat Affect Assessment and Plan (1) Atrial fibrillation with rapid ventricular response Status: Acute (2) Bilateral lower leg cellulitis Status: Acute (3) CHF (congestive heart failure) Status: Acute (4) DKA (diabetic ketoacidoses) Status: Resolved (5) Diabetes Status: Chronic (6) HTN (hypertension) Status: Chronic
--- NOTE | 2016-11-13 16:28 | CP.CCUPN ---
CCU Subjective - Physician Review Events Since Last Encounter (Free Text): 11/13/16 16:27 Patient is alert, not tolerating pressure support trials well, is having nasopharyngeal bleed today. CCU Objective - Vital Signs / Intake & Output Vital Signs (Last 4 hours): Vital Signs Pulse Resp BP Pulse Ox 11/13/16 15:00 110 H 14 96 11/13/16 14:13 110 H 14 134/71 97 11/13/16 14:00 106 H 14 97 11/13/16 13:39 144/66 11/13/16 13:13 110 H 14 134/66 97 11/13/16 13:00 98 H 14 96 Intake and Output (Last 8hrs): Intake & Output 11/13/16 11/13/16 11/13/16 06:59 14:59 22:59 Intake Total 250 150 0 Output Total 3426 773 1334 Balance -925 -190 -1300 Weight 255 lb 14.4 oz Intake: Intake, IV Amount 150 0 Right Distal Port 150 Internal Jugular Right Distal Port 0 0 Tube Feeding 250 0 0 Output: Urine 750 721 3351 Urethral ([place]) [phone] Stool 0 0 Other 200 - Physical Exam Head: Positive for: Atraumatic, Normocephalic Pupils: Positive for: PERRL. Negative for: Sluggish, Non-Reactive Extroacular Muscles: Positive for: EOMI. Negative for: Gaze Palsy Conjunctiva: Positive for: Normal. Negative for: Injected, Icteric Mouth: Positive for: Moist Mucous Membranes Neck: Positive for: Normal Range of Motion, Trachea Midline. Negative for: Meningeal Signs, MIDLINE TENDERNESS, Paraspinal Tenderness, JVD, Lymphadenopathy , Bruit, Other Respiratory/Chest: Positive for: Wheezes, Decreased Breath Sounds, Other ( intubated). Negative for: Rales Cardiovascular: Positive for: Irregular Rhythm, Peripheal Pulses Present, Tachycardic. Negative for: Murmurs, Normal S1, S2 Abdomen: Negative for: Tenderness, Distention Upper Extremity: Positive for: Normal Inspection Lower Extremity: Positive for: Edema Neurological: Negative for: Speech Normal Psychiatric: Negative for: Alert, Oriented x 3 - Medications Active Medications: Active Medications Generic Name Dose Route Start Last Admin Trade Name Freq PRN Reason Stop Dose Admin Acetaminophen 650 mg 11/10/16 07:59 11/10/16 08:06 Tylenol 650mg/20.3ml Solution Ud PO 650 mg Q6 PRN Administration Fever >100.4 F Acetazolamide 250 mg 11/13/16 18:00 Diamox 500 Mg Inj IV 11/14/16 12:01 Q6 [facility] Diltiazem HCl 180 mg 11/11/16 11:00 11/13/16 10:05 Cardizem Cd PO 180 mg DAILY [facility] Administration Furosemide 40 mg 11/13/16 12:00 11/13/16 13:39 Lasix IVP 11/14/16 00:01 40 mg Q12H [facility] Administration Propofol 100 mls @ 3.493 mls/hr 11/08/16 08:29 11/12/16 07:06 Diprivan IV 7 mcg/kg/min .Q24H PRN Titration TITRATE PER MD ORDER Protocol 5 MCG/KG/MIN Insulin Glargine 10 unit 11/12/16 21:00 11/13/16 09:59 Lantus SC 10 units 0800,2000 [facility] Administration Insulin Human Regular 0 unit 11/13/16 08:40 11/13/16 12:34 Novolin R SC 4 unit Q6 [facility] Administration Protocol Methimazole 5 mg 11/07/16 10:00 11/13/16 13:42 Tapazole PO 5 mg TID [facility] Administration Methylprednisolone 20 mg 11/13/16 09:30 11/13/16 11:45 Solu-Medrol IVP 20 mg Q12 [facility] Administration Metoprolol Tartrate 2.5 mg 11/10/16 20:14 11/13/16 14:05 Lopressor IVP 2.5 mg Q6H [facility] Administration Nystatin 0 ea 11/04/16 18:00 11/13/16 13:48 Mycostatin Cream TOP 1 applic TID [facility] Administration Oxymetazoline HCl 0 ml 11/13/16 16:30 Afrin 0.05% NS Q12H [facility] Pantoprazole Sodium 40 mg 11/04/16 16:45 11/13/16 10:00 Protonix Inj IVP 40 mg DAILY [facility] Administration Senna/Docusate Sodium 1 tab 11/12/16 11:30 11/13/16 09:59 Senokot S 50 Mg-8.6 Mg PO 1 tab BID [facility] Administration Vitamin A 1 ea 11/09/16 18:00 11/13/16 11:16 Vitamin A & D Oint Ud Foilpak TOP 1 ea BID [facility] Administration - Patient Studies Lab Studies: Lab Studies 11/13/16 11/13/16 11/13/16 Range/Units 13:43 12:05 04:57 WBC 6.9 (4.8-10.8) K/uL RBC 4.44 (3.80-5.20) Mil/uL Hgb 12.8 (11.0-16.0) g/dL Hct 40.8 (34.0-47.0) % MCV 91.9 (81.0-99.0) fL MCH 28.9 (27.0-31.0) pg MCHC 31.5 L (33.0-37.0) g/dL RDW 15.2 H (11.5-14.5) % Plt Count 147 (130-400) K/uL MPV 9.8 (7.2-11.7) fL Neut % (Auto) 77.2 H (50.0-75.0) % Lymph % (Auto) 13.0 L (20.0-40.0) % Howell % (Auto) 9.6 (0.0-10.0) % Eos % (Auto) 0.0 (0.0-4.0) % Baso % (Auto) 0.2 (0.0-2.0) % Neut # 5.3 (1.8-7.0) K/uL Lymph # 0.9 L (1.0-4.3) K/uL Howell # 0.7 (0.0-0.8) K/uL Eos # 0.0 (0.0-0.7) K/uL Baso # 0.0 (0.0-0.2) K/uL PT 12.0 (9.7-12.2) SECONDS INR 1.1 APTT 38 H D (21-34) SECONDS Puncture Site pCO2 (35-45) mm/Hg pO2 (80-100) mm/Hg HCO3 (21-28) mmol/L ABG pH (7.35-7.45) ABG Total CO2 (22-28) mmol/L ABG O2 Saturation (95-98) % ABG Base Excess (-2.0-3.0) mmol/L ABG Hemoglobin (11.7-17.4) g/dL ABG Carboxyhemoglobin (0.5-1.5) % POC ABG HHb (Measured) (0.0-5.0) % ABG Methemoglobin (0.0-3.0) % Chaz Test A-a O2 Difference mm/Hg Respiratory Index Hgb O2 Saturation (95.0-98.0) % Mechanical Rate FiO2 % Tidal Volume PEEP Sodium 155 H (132-148) mmol/L Potassium 3.5 L (3.6-5.2) mmol/L Chloride 109 H (98-107) mmol/L Carbon Dioxide 40 H* (22-30) mmol/L Anion Gap 10 (10-20) BUN 50 H (7-17) mg/dL Creatinine 0.8 (0.7-1.2) MG/DL Est GFR ( Amer) > 60 Est GFR (Non-Af Amer) > 60 POC Glucose (mg/dL) 204 H (65-110) mg/dL Random Glucose 272 H (65-105) mg/dL Calcium 9.1 (8.6-10.4) mg/dl Phosphorus 3.0 (2.5-4.5) mg/dL Magnesium 2.5 H (1.6-2.3) mg/dL Total Bilirubin 0.7 (0.2-1.3) mg/dL AST 22 (14-36) U/L ALT 41 (9-52) U/L Alkaline Phosphatase 78 (38-126) U/L Total Protein 5.5 L (6.3-8.3) g/dL Albumin 2.4 L (3.5-5.0) g/dL Globulin 3.1 (2.2-3.9) gm/dL Albumin/Globulin Ratio 0.8 L (1.0-2.1) Free T4 2.31 H (0.78-2.19) ng/dL Thyroxine (T4) 12.1 H (5.5-11.0) ug/dL Total T3 2.00 (1.49-2.60) nmol/L TSH 3rd Generation < 0.02 L (0.46-4.68) mIU/L Pleural Total Protein (()) g/dL Pleural LDH (()) U/L Pleural Glucose (()) mg/dL Pleural Amylase (()) U/L Pleural Lipase (<10) U/L Pleural Cholesterol (()) Pleural Triglycerides (()) mg/dL Blood Type A POSITIVE Blood Type Confirm A POSITIVE Antibody Screen Negative 11/13/16 11/12/16 11/12/16 Range/Units 04:35 23:35 17:59 WBC (4.8-10.8) K/uL RBC (3.80-5.20) Mil/uL Hgb (11.0-16.0) g/dL Hct (34.0-47.0) % MCV (81.0-99.0) fL MCH (27.0-31.0) pg MCHC (33.0-37.0) g/dL RDW (11.5-14.5) % Plt Count (130-400) K/uL MPV (7.2-11.7) fL Neut % (Auto) (50.0-75.0) % Lymph % (Auto) (20.0-40.0) % Howell % (Auto) (0.0-10.0) % Eos % (Auto) (0.0-4.0) % Baso % (Auto) (0.0-2.0) % Neut # (1.8-7.0) K/uL Lymph # (1.0-4.3) K/uL Howell # (0.0-0.8) K/uL Eos # (0.0-0.7) K/uL Baso # (0.0-0.2) K/uL PT (9.7-12.2) SECONDS INR APTT (21-34) SECONDS Puncture Site Rr pCO2 57 H (35-45) mm/Hg pO2 63 L (80-100) mm/Hg HCO3 38.2 H (21-28) mmol/L ABG pH 7.49 H (7.35-7.45) ABG Total CO2 45.1 H (22-28) mmol/L ABG O2 Saturation 95.2 (95-98) % ABG Base Excess 17.2 H (-2.0-3.0) mmol/L ABG Hemoglobin 12.9 (11.7-17.4) g/dL ABG Carboxyhemoglobin 1.8 H (0.5-1.5) % POC ABG HHb (Measured) 4.7 (0.0-5.0) % ABG Methemoglobin 1.1 (0.0-3.0) % Chaz Test Pos A-a O2 Difference 222.0 mm/Hg Respiratory Index 3.5 Hgb O2 Saturation 92.4 L (95.0-98.0) % Mechanical Rate 14 FiO2 50.0 % Tidal Volume 500 PEEP 5 Sodium (132-148) mmol/L Potassium (3.6-5.2) mmol/L Chloride (98-107) mmol/L Carbon Dioxide (22-30) mmol/L Anion Gap (10-20) BUN (7-17) mg/dL Creatinine (0.7-1.2) MG/DL Est GFR ( Amer) Est GFR (Non-Af Amer) POC Glucose (mg/dL) 339 H 331 H (65-110) mg/dL Random Glucose (65-105) mg/dL Calcium (8.6-10.4) mg/dl Phosphorus (2.5-4.5) mg/dL Magnesium (1.6-2.3) mg/dL Total Bilirubin (0.2-1.3) mg/dL AST (14-36) U/L ALT (9-52) U/L Alkaline Phosphatase (38-126) U/L Total Protein (6.3-8.3) g/dL Albumin (3.5-5.0) g/dL Globulin (2.2-3.9) gm/dL Albumin/Globulin Ratio (1.0-2.1) Free T4 (0.78-2.19) ng/dL Thyroxine (T4) (5.5-11.0) ug/dL Total T3 (1.49-2.60) nmol/L TSH 3rd Generation (0.46-4.68) mIU/L Pleural Total Protein (()) g/dL Pleural LDH (()) U/L Pleural Glucose (()) mg/dL Pleural Amylase (()) U/L Pleural Lipase (<10) U/L Pleural Cholesterol (()) Pleural Triglycerides (()) mg/dL Blood Type Blood Type Confirm Antibody Screen 11/12/16 11/10/16 Range/Units 17:43 15:30 WBC (4.8-10.8) K/uL RBC (3.80-5.20) Mil/uL Hgb (11.0-16.0) g/dL Hct (34.0-47.0) % MCV (81.0-99.0) fL MCH (27.0-31.0) pg MCHC (33.0-37.0) g/dL RDW (11.5-14.5) % Plt Count (130-400) K/uL MPV (7.2-11.7) fL Neut % (Auto) (50.0-75.0) % Lymph % (Auto) (20.0-40.0) % Howell % (Auto) (0.0-10.0) % Eos % (Auto) (0.0-4.0) % Baso % (Auto) (0.0-2.0) % Neut # (1.8-7.0) K/uL Lymph # (1.0-4.3) K/uL Howell # (0.0-0.8) K/uL Eos # (0.0-0.7) K/uL Baso # (0.0-0.2) K/uL PT (9.7-12.2) SECONDS INR APTT (21-34) SECONDS Puncture Site pCO2 (35-45) mm/Hg pO2 (80-100) mm/Hg HCO3 (21-28) mmol/L ABG pH (7.35-7.45) ABG Total CO2 (22-28) mmol/L ABG O2 Saturation (95-98) % ABG Base Excess (-2.0-3.0) mmol/L ABG Hemoglobin (11.7-17.4) g/dL ABG Carboxyhemoglobin (0.5-1.5) % POC ABG HHb (Measured) (0.0-5.0) % ABG Methemoglobin (0.0-3.0) % Chaz Test A-a O2 Difference mm/Hg Respiratory Index Hgb O2 Saturation (95.0-98.0) % Mechanical Rate FiO2 % Tidal Volume PEEP Sodium (132-148) mmol/L Potassium (3.6-5.2) mmol/L Chloride (98-107) mmol/L Carbon Dioxide (22-30) mmol/L Anion Gap (10-20) BUN (7-17) mg/dL Creatinine (0.7-1.2) MG/DL Est GFR ( Amer) Est GFR (Non-Af Amer) POC Glucose (mg/dL) > 500 H* (65-110) mg/dL Random Glucose (65-105) mg/dL Calcium (8.6-10.4) mg/dl Phosphorus (2.5-4.5) mg/dL Magnesium (1.6-2.3) mg/dL Total Bilirubin (0.2-1.3) mg/dL AST (14-36) U/L ALT (9-52) U/L Alkaline Phosphatase (38-126) U/L Total Protein (6.3-8.3) g/dL Albumin (3.5-5.0) g/dL Globulin (2.2-3.9) gm/dL Albumin/Globulin Ratio (1.0-2.1) Free T4 (0.78-2.19) ng/dL Thyroxine (T4) (5.5-11.0) ug/dL Total T3 (1.49-2.60) nmol/L TSH 3rd Generation (0.46-4.68) mIU/L Pleural Total Protein <3.0 (()) g/dL Pleural LDH 62 (()) U/L Pleural Glucose 253 (()) mg/dL Pleural Amylase <10 (()) U/L Pleural Lipase 8.0 (<10) U/L Pleural Cholesterol see note (()) Pleural Triglycerides 21 (()) mg/dL Blood Type Blood Type Confirm Antibody Screen Laboratory Results - last 24 hr 11/10/16 11/12/16 11/12/16 15:30 17:43 17:59 WBC RBC Hgb Hct MCV MCH MCHC RDW Plt Count MPV Neut % (Auto) Lymph % (Auto) Howell % (Auto) Eos % (Auto) Baso % (Auto) Neut # Lymph # Howell # Eos # Baso # PT INR APTT Puncture Site pCO2 pO2 HCO3 ABG pH ABG Total CO2 ABG O2 Saturation ABG Base Excess ABG Hemoglobin ABG Carboxyhemoglobin POC ABG HHb (Measured) ABG Methemoglobin Chaz Test A-a O2 Difference Respiratory Index Hgb O2 Saturation Mechanical Rate FiO2 Tidal Volume PEEP Sodium Potassium Chloride Carbon Dioxide Anion Gap BUN Creatinine Est GFR ( Amer) Est GFR (Non-Af Amer) POC Glucose (mg/dL) > 500 H* 331 H Random Glucose Calcium Phosphorus Magnesium Total Bilirubin AST ALT Alkaline Phosphatase Total Protein Albumin Globulin Albumin/Globulin Ratio Free T4 Thyroxine (T4) Total T3 TSH 3rd Generation Pleural Total Protein <3.0 Pleural LDH 62 Pleural Glucose 253 Pleural Amylase <10 Pleural Lipase 8.0 Pleural Cholesterol see note Pleural Triglycerides 21 Blood Type Blood Type Confirm Antibody Screen 11/12/16 11/13/16 11/13/16 23:35 04:35 04:57 WBC 6.9 RBC 4.44 Hgb 12.8 Hct 40.8 MCV 91.9 MCH 28.9 MCHC 31.5 L RDW 15.2 H Plt Count 147 MPV 9.8 Neut % (Auto) 77.2 H Lymph % (Auto) 13.0 L Howell % (Auto) 9.6 Eos % (Auto) 0.0 Baso % (Auto) 0.2 Neut # 5.3 Lymph # 0.9 L Howell # 0.7 Eos # 0.0 Baso # 0.0 PT 12.0 INR 1.1 APTT 38 H D Puncture Site Rr pCO2 57 H pO2 63 L HCO3 38.2 H ABG pH 7.49 H ABG Total CO2 45.1 H ABG O2 Saturation 95.2 ABG Base Excess 17.2 H ABG Hemoglobin 12.9 ABG Carboxyhemoglobin 1.8 H POC ABG HHb (Measured) 4.7 ABG Methemoglobin 1.1 Chaz Test Pos A-a O2 Difference 222.0 Respiratory Index 3.5 Hgb O2 Saturation 92.4 L Mechanical Rate 14 FiO2 50.0 Tidal Volume 500 PEEP 5 Sodium 155 H Potassium 3.5 L Chloride 109 H Carbon Dioxide 40 H* Anion Gap 10 BUN 50 H Creatinine 0.8 Est GFR ( Amer) > 60 Est GFR (Non-Af Amer) > 60 POC Glucose (mg/dL) 339 H Random Glucose 272 H Calcium 9.1 Phosphorus 3.0 Magnesium 2.5 H Total Bilirubin 0.7 AST 22 ALT 41 Alkaline Phosphatase 78 Total Protein 5.5 L Albumin 2.4 L Globulin 3.1 Albumin/Globulin Ratio 0.8 L Free T4 2.31 H Thyroxine (T4) 12.1 H Total T3 2.00 TSH 3rd Generation < 0.02 L Pleural Total Protein Pleural LDH Pleural Glucose Pleural Amylase Pleural Lipase Pleural Cholesterol Pleural Triglycerides Blood Type Blood Type Confirm Antibody Screen 11/13/16 11/13/16 12:05 13:43 WBC RBC Hgb Hct MCV MCH MCHC RDW Plt Count MPV Neut % (Auto) Lymph % (Auto) Howell % (Auto) Eos % (Auto) Baso % (Auto) Neut # Lymph # Howell # Eos # Baso # PT INR APTT Puncture Site pCO2 pO2 HCO3 ABG pH ABG Total CO2 ABG O2 Saturation ABG Base Excess ABG Hemoglobin ABG Carboxyhemoglobin POC ABG HHb (Measured) ABG Methemoglobin Chaz Test A-a O2 Difference Respiratory Index Hgb O2 Saturation Mechanical Rate FiO2 Tidal Volume PEEP Sodium Potassium Chloride Carbon Dioxide Anion Gap BUN Creatinine Est GFR ( Amer) Est GFR (Non-Af Amer) POC Glucose (mg/dL) 204 H Random Glucose Calcium Phosphorus Magnesium Total Bilirubin AST ALT Alkaline Phosphatase Total Protein Albumin Globulin Albumin/Globulin Ratio Free T4 Thyroxine (T4) Total T3 TSH 3rd Generation Pleural Total Protein Pleural LDH Pleural Glucose Pleural Amylase Pleural Lipase Pleural Cholesterol Pleural Triglycerides Blood Type A POSITIVE Blood Type Confirm A POSITIVE Antibody Screen Negative Fingerstick Blood Sugar Results: 204 Review of Systems - Review of Systems Systems not reviewed;Unavailable: Intubated Critical Care Progress Note - Ventilator Checklist Head of Bed 30 Degrees: Yes Daily Sedation Vacation: Yes Daily Assessment of Readiness to Wean: Yes Daily Spontaneous Breathing Trial: Yes PUD Prophalyxis: Yes DVT Prophylaxis: Yes Assessment/Plan (1) Respiratory failure with hypoxia Assessment and plan: 61 F with past medical history of diabetes, HTN, hyperthyroidism, depression, anxiety, and peripheral edema brought in by EMS in rapid A-fib and DKA. Intubated (11/08). Right thoracentesis (11/10). Neuro: sedation held, Alert and following commands. Pulm: Acute hypercarbic respiratory failure now on PRVC. Tapering Solumedrol 20mg IV q12h. CV: A. fib rate controlled with Cardizem po and Lopressor 2.5mg IV every 6 Hem: Bleeding from nasal or oropharynx, holding therapeutic lovenox for afib; and holding aspirin, giving platelets and DDAVP. Renal: Stopping diuresis today as patient was becoming alkalotic which was corrected with Diamox, negative fluid balance. Hypernatremia from diuresis, will stop tomorrow, added free water flushes. Endo: DM type II on regular insulin sliding scale, lantus 10 units q12h. hyperthyroidism on methimazole. GI: Nothing by mouth while, [email or web address]@50 + free water 250ml q6h. ID: Severe sepsis from cellulitis, continue vancomycin and Zosyn DVT proph - Lovenox GI proph - Protonix campa for strict I/O's during acute illness Code status - full code Crtical Care Time spent 35 minutes Multi-disciplinary rounds were performed with house staff, nursing, speech therapy, respiratory therapy, pharmacy and nutrition with integrated input from the primary team/attending and other consulting services. The documented time is cumulative and includes review of patient data/exams/labs/chart review and examination of the patient on rounds and throughout the day; time is exclusive of any procedures or teaching time. Current Visit: Yes Status: Acute
--- NOTE | 2016-11-13 16:31 | CP.PCM.PN ---
Subjective - Date & Time of Evaluation Date of Evaluation: 11/13/16 Time of Evaluation: 15:00 - Subjective Subjective: Patient seen and examined in the intensive care unit. Bleeding from the mouth and through the NG tube noted Lovenox and aspirin on hold since yesterday Patient received DDAVP and getting platelets Awake on ventilator support A. fib with rapid rate Objective - Vital Signs/Intake and Output Vital Signs (last 24 hours): Temp Pulse Resp BP Pulse Ox 98.2 F 110 H 14 134/71 96 11/13/16 00:00 11/13/16 15:00 11/13/16 15:00 11/13/16 14:13 11/13/16 15:00 Intake and Output: 11/13/16 11/13/16 06:59 18:59 Intake Total 450 150 Output Total 1550 1640 Balance -1100 -1490 - Medications Medications: Current Medications Acetaminophen (Tylenol 650mg/20.3ml Solution Ud) 650 mg PO Q6 PRN PRN Reason: Fever >100.4 F Last Admin: 11/10/16 08:06 Dose: 650 mg Acetazolamide (Diamox 500 Mg Inj) 250 mg IV Q6 [facility] Stop: 11/14/16 12:01 Diltiazem HCl (Cardizem Cd) 180 mg PO DAILY [facility] Last Admin: 11/13/16 10:05 Dose: 180 mg Furosemide (Lasix) 40 mg IVP Q12H [facility] Stop: 11/14/16 00:01 Last Admin: 11/13/16 13:39 Dose: 40 mg Propofol (Diprivan) 100 mls @ 3.493 mls/hr IV .Q24H PRN; Protocol; 5 MCG/KG/MIN PRN Reason: TITRATE PER MD ORDER Last Titration: 11/12/16 07:06 Dose: 7 mcg/kg/min Insulin Glargine (Lantus) 10 unit SC 0800,1999 [facility] Last Admin: 11/13/16 09:59 Dose: 10 units Insulin Human Regular (Novolin R) 0 unit SC Q6 [facility] PRN Reason: Protocol Last Admin: 11/13/16 12:34 Dose: 4 unit Methimazole (Tapazole) 5 mg PO TID [facility] Last Admin: 11/13/16 13:42 Dose: 5 mg Methylprednisolone (Solu-Medrol) 20 mg IVP Q12 [facility] Last Admin: 11/13/16 11:45 Dose: 20 mg Metoprolol Tartrate (Lopressor) 2.5 mg IVP Q6H [facility] Last Admin: 11/13/16 14:05 Dose: 2.5 mg Nystatin (Mycostatin Cream) 0 ea TOP TID [facility] Last Admin: 11/13/16 13:48 Dose: 1 applic Oxymetazoline HCl (Afrin 0.05%) 0 ml NS Q12H [facility] Pantoprazole Sodium (Protonix Inj) 40 mg IVP DAILY [facility] Last Admin: 11/13/16 10:00 Dose: 40 mg Senna/Docusate Sodium (Senokot S 50 Mg-8.6 Mg) 1 tab PO BID [facility] Last Admin: 11/13/16 09:59 Dose: 1 tab Vitamin A (Vitamin A & D Oint Ud Foilpak) 1 ea TOP BID [facility] Last Admin: 11/13/16 11:16 Dose: 1 ea - Labs Labs: 11/13/16 04:57 11/13/16 04:57 PT 12.0 SECONDS (9.7-12.2) 11/13/16 04:57 INR 1.1 11/13/16 04:57 APTT 38 SECONDS (21-34) H D 11/13/16 04:57 - Head Exam Head Exam: ATRAUMATIC, NORMOCEPHALIC - Eye Exam Eye Exam: Normal appearance - ENT Exam ENT Exam: Mucous Membranes Moist - Neck Exam Neck Exam: Normal Inspection - Respiratory Exam Respiratory Exam: Rales - Cardiovascular Exam Cardiovascular Exam: Irregular Rhythm - GI/Abdominal Exam GI & Abdominal Exam: Soft, Normal Bowel Sounds Assessment and Plan (1) Respiratory failure with hypoxia Assessment & Plan: ENT evaluation from bleeding from the mouth, most likely bleeding from nose Platelet transfusion ventilatory support Status: Acute (2) Atrial fibrillation with rapid ventricular response Status: Acute (3) Bilateral lower leg cellulitis Status: Acute (4) Hyperosmolar non-ketotic state in patient with type 2 diabetes mellitus Status: Acute
[2016-11-13 16:44] LABS: FUNCTIONING PLTS 79 K/uL; PLT BASE COUNT 148 K/uL; PLT(ADP) 69 K/uL
[2016-11-13] MEDS ORDERED: Oxymetazoline 0.05% Nasal Spray (30 ml) NS SCH (16:45)
[2016-11-13 17:46] LABS: BASO # 0.1 K/uL (0.0-0.2); BASO % 0.5 % (0.0-2.0); EOS % 0.1 % (0.0-4.0); HEMATOCRIT 39.6 % (34.0-47.0); LYMPH # 1.5 K/uL (1.0-4.3); LYMPH % 14.5 % (20.0-40.0); MEAN CELL VOLUME 91.7 fL (81.0-99.0); MEAN CORPUSCULAR HGB CONC 31.6 g/dL (33.0-37.0); MEAN PLATELET VOLUME 9.9 fL (7.2-11.7); MONO % 9.8 % (0.0-10.0); RED CELL DISTRIBUTION WIDTH 15.1 % (11.5-14.5); WHITE BLOOD COUNT 10.4 K/uL (4.8-10.8)
[2016-11-13] MEDS ORDERED: Iodixanol 320 mg/ml 150 ml Bottle IV ONE (17:58)
--- NOTE | 2016-11-13 18:01 | PCM.PROC ---
Procedures Attestation:: I certify that I have explained the specified Operation(s) or Procedure(s), risks, benefits and reasonable alternatives to the Patient and/or other person responsible. The opportunity was given to ask questions and all questions answered - Epistaxis Control Consent Obtained: verbal consent Nostril: Right Nose Prepped With: oxymetazoline Direct Inspection: unable to visualize Clots Removed by: suction Device Inserted: hemostatic balloon Patient Tolerated Procedure: well, no complications
[2016-11-13 20:46] LABS: BASO # 0.1 K/uL (0.0-0.2); BASO % 0.6 % (0.0-2.0); EOS % 0.1 % (0.0-4.0); LYMPH # 1.3 K/uL (1.0-4.3); LYMPH % 15.5 % (20.0-40.0); MEAN CELL VOLUME 91.5 fL (81.0-99.0); MEAN CORPUSCULAR HEMOGLOBIN 28.9 pg (27.0-31.0); MEAN CORPUSCULAR HGB CONC 31.5 g/dL (33.0-37.0); MEAN PLATELET VOLUME 9.5 fL (7.2-11.7); MONO # 0.6 K/uL (0.0-0.8); MONO % 7.6 % (0.0-10.0); RED CELL DISTRIBUTION WIDTH 14.9 % (11.5-14.5); WHITE BLOOD COUNT 8.4 K/uL (4.8-10.8)
--- NOTE | 2016-11-13 20:56 | CP.PCM.CON ---
History of Present Illness - History of Present Illness History of Present Illness: uncontrolled DM Past Patient History - Tetanus Immunizations Tetanus Immunization: Unknown - Past Medical History & Family History Past Medical History?: Yes - Past Social History Smoking Status: Current Some Days Smoker - CARDIAC Hx Hypertension: Yes Hx Peripheral Edema: Yes - PULMONARY Hx Bronchitis: Yes - NEUROLOGICAL Hx Neurological Disorder: No - HEENT Hx HEENT Problems: No Other/Comment: WEARS READING GLASSES. - RENAL Hx Chronic Kidney Disease: No - ENDOCRINE/METABOLIC Hx Hyperthyroidism: Yes - HEMATOLOGICAL/ONCOLOGICAL Hx Blood Disorders: Yes Hx Blood Transfusions: Yes Hx Blood Transfusion Reaction: No - INTEGUMENTARY Hx Cellulitis: Yes - MUSCULOSKELETAL/RHEUMATOLOGICAL Hx Arthritis: Yes Hx Falls: Yes - GASTROINTESTINAL Hx Gastrointestinal Disorders: No - GENITOURINARY/GYNECOLOGICAL Hx Genitourinary Disorders: No - PSYCHIATRIC Hx Anxiety: Yes Hx Depression: Yes Hx Substance Use: No - SURGICAL HISTORY Hx Surgeries: Yes Other/Comment: TUMOR FROM OVARIES REMOVED - ANESTHESIA Hx Anesthesia: Yes Hx Anesthesia Reactions: No Hx Malignant Hyperthermia: No Meds Allergies/Adverse Reactions: Allergies Allergy/AdvReac Type Severity Reaction Status Date / Time No Known Allergies Allergy Verified 11/04/16 11:37 - Medications Medications: Current Medications Acetaminophen (Tylenol 650 Mg Supp) 650 mg WA Q6 PRN PRN Reason: temperature >101 F Last Admin: 11/13/16 20:15 Dose: 650 mg Acetazolamide (Diamox 500 Mg Inj) 250 mg IV Q6 [facility] Stop: 11/14/16 12:01 Last Admin: 11/13/16 17:20 Dose: 250 mg Diltiazem HCl (Cardizem Cd) 180 mg PO DAILY [facility] Last Admin: 11/13/16 10:05 Dose: 180 mg Furosemide (Lasix) 40 mg IVP Q12H [facility] Stop: 11/14/16 00:01 Last Admin: 11/13/16 13:39 Dose: 40 mg Propofol (Diprivan) 100 mls @ 3.493 mls/hr IV .Q24H PRN; Protocol; 5 MCG/KG/MIN PRN Reason: TITRATE PER MD ORDER Last Titration: 11/12/16 07:06 Dose: 7 mcg/kg/min Insulin Glargine (Lantus) 10 unit SC 0800,2000 [facility] Last Admin: 11/13/16 20:00 Dose: Not Given Insulin Human Regular (Novolin R) 0 unit SC Q6 [facility] PRN Reason: Protocol Last Admin: 11/13/16 12:34 Dose: 4 unit Methimazole (Tapazole) 10 mg PO BID [facility] Methylprednisolone (Solu-Medrol) 20 mg IVP Q12 [facility] Last Admin: 11/13/16 11:45 Dose: 20 mg Metoprolol Tartrate (Lopressor) 2.5 mg IVP Q6H [facility] Last Admin: 11/13/16 20:15 Dose: 2.5 mg Nystatin (Mycostatin Cream) 0 ea TOP TID [facility] Last Admin: 11/13/16 17:19 Dose: 1 applic Oxymetazoline HCl (Afrin 0.05%) 0 ml NS Q12H [facility] Pantoprazole Sodium (Protonix Inj) 40 mg IVP DAILY [facility] Last Admin: 11/13/16 10:00 Dose: 40 mg Senna/Docusate Sodium (Senokot S 50 Mg-8.6 Mg) 1 tab PO BID [facility] Last Admin: 11/13/16 09:59 Dose: 1 tab Vitamin A (Vitamin A & D Oint Ud Foilpak) 1 ea TOP BID [facility] Last Admin: 11/13/16 11:16 Dose: 1 ea Results - Vital Signs Recent Vital Signs: Last Vital Signs Temp 101.1 F H 11/13/16 20:15 Pulse 110 H 11/13/16 15:00 Resp 14 11/13/16 15:00 BP 134/71 11/13/16 14:13 Pulse Ox 96 11/13/16 15:00 - Labs Result Diagrams: 11/13/16 17:40 11/13/16 04:57 Labs: Laboratory Results - last 24 hr 11/10/16 11/12/16 11/13/16 15:30 23:35 04:35 WBC RBC Hgb Hct MCV MCH MCHC RDW Plt Count MPV Neut % (Auto) Lymph % (Auto) Collier % (Auto) Eos % (Auto) Baso % (Auto) Neut # Lymph # Collier # Eos # Baso # PT INR APTT Plt Function Assay Puncture Site Rr pCO2 57 H pO2 63 L HCO3 38.2 H ABG pH 7.49 H ABG Total CO2 45.1 H ABG O2 Saturation 95.2 ABG Base Excess 17.2 H ABG Hemoglobin 12.9 ABG Carboxyhemoglobin 1.8 H POC ABG HHb (Measured) 4.7 ABG Methemoglobin 1.1 Chaz Test Pos A-a O2 Difference 222.0 Respiratory Index 3.5 Hgb O2 Saturation 92.4 L Mechanical Rate 14 FiO2 50.0 Tidal Volume 500 PEEP 5 Sodium Potassium Chloride Carbon Dioxide Anion Gap BUN Creatinine Est GFR ( Amer) Est GFR (Non-Af Amer) POC Glucose (mg/dL) 339 H Random Glucose Calcium Phosphorus Magnesium Total Bilirubin AST ALT Alkaline Phosphatase Total Protein Albumin Globulin Albumin/Globulin Ratio Free T4 Thyroxine (T4) Total T3 TSH 3rd Generation Pleural Total Protein <3.0 Pleural LDH 62 Pleural Glucose 253 Pleural Amylase <10 Pleural Lipase 8.0 Pleural Cholesterol see note Pleural Triglycerides 21 Blood Type Blood Type Confirm Antibody Screen 11/13/16 11/13/16 11/13/16 04:57 12:05 13:43 WBC 6.9 RBC 4.44 Hgb 12.8 Hct 40.8 MCV 91.9 MCH 28.9 MCHC 31.5 L RDW 15.2 H Plt Count 147 MPV 9.8 Neut % (Auto) 77.2 H Lymph % (Auto) 13.0 L Collier % (Auto) 9.6 Eos % (Auto) 0.0 Baso % (Auto) 0.2 Neut # 5.3 Lymph # 0.9 L Collier # 0.7 Eos # 0.0 Baso # 0.0 PT 12.0 INR 1.1 APTT 38 H D Plt Function Assay Puncture Site pCO2 pO2 HCO3 ABG pH ABG Total CO2 ABG O2 Saturation ABG Base Excess ABG Hemoglobin ABG Carboxyhemoglobin POC ABG HHb (Measured) ABG Methemoglobin Chaz Test A-a O2 Difference Respiratory Index Hgb O2 Saturation Mechanical Rate FiO2 Tidal Volume PEEP Sodium 155 H Potassium 3.5 L Chloride 109 H Carbon Dioxide 40 H* Anion Gap 10 BUN 50 H Creatinine 0.8 Est GFR ( Amer) > 60 Est GFR (Non-Af Amer) > 60 POC Glucose (mg/dL) 204 H Random Glucose 272 H Calcium 9.1 Phosphorus 3.0 Magnesium 2.5 H Total Bilirubin 0.7 AST 22 ALT 41 Alkaline Phosphatase 78 Total Protein 5.5 L Albumin 2.4 L Globulin 3.1 Albumin/Globulin Ratio 0.8 L Free T4 2.31 H Thyroxine (T4) 12.1 H Total T3 2.00 TSH 3rd Generation < 0.02 L Pleural Total Protein Pleural LDH Pleural Glucose Pleural Amylase Pleural Lipase Pleural Cholesterol Pleural Triglycerides Blood Type A POSITIVE Blood Type Confirm A POSITIVE Antibody Screen Negative 11/13/16 11/13/16 11/13/16 16:26 17:40 17:59 WBC 10.4 D RBC 4.32 Hgb 12.5 Hct 39.6 MCV 91.7 MCH 29.0 MCHC 31.6 L RDW 15.1 H Plt Count 164 MPV 9.9 Neut % (Auto) 75.1 H Lymph % (Auto) 14.5 L Collier % (Auto) 9.8 Eos % (Auto) 0.1 Baso % (Auto) 0.5 Neut # 7.8 H Lymph # 1.5 Collier # 1.0 H Eos # 0.0 Baso # 0.1 PT INR APTT Plt Function Assay 79 Puncture Site pCO2 pO2 HCO3 ABG pH ABG Total CO2 ABG O2 Saturation ABG Base Excess ABG Hemoglobin ABG Carboxyhemoglobin POC ABG HHb (Measured) ABG Methemoglobin Chaz Test A-a O2 Difference Respiratory Index Hgb O2 Saturation Mechanical Rate FiO2 Tidal Volume PEEP Sodium Potassium Chloride Carbon Dioxide Anion Gap BUN Creatinine Est GFR ( Amer) Est GFR (Non-Af Amer) POC Glucose (mg/dL) 158 H Random Glucose Calcium Phosphorus Magnesium Total Bilirubin AST ALT Alkaline Phosphatase Total Protein Albumin Globulin Albumin/Globulin Ratio Free T4 Thyroxine (T4) Total T3 TSH 3rd Generation Pleural Total Protein Pleural LDH Pleural Glucose Pleural Amylase Pleural Lipase Pleural Cholesterol Pleural Triglycerides Blood Type Blood Type Confirm Antibody Screen Assessment & Plan (1) Diabetes mellitus, insulin dependent (IDDM), uncontrolled Assessment and Plan: Endocrine consult reason for consult: uncontrolled diabetes source : chrart review , pt awake , alert with OGT tube for bleeding unable to give history & as per chart review poor historian is 61 y/o admitted for a fib with rapid venttirucular resonse & DKA / bilateral lower extremities cellulites ,pt was intubated & also started on insulin drip glucose on admission 1023 . also was started on steroid 40 mg po bid , endocrine was contacted yesterday 11/12 for uncontrolled IDDM glucose in 300- 400 , lantus was changed to 10 bid & d/c novolog coverage high dose , start humalin R low dose coverage q6h & start humalin R 4 units q6h while on continous feeding . & also pt with hyperthyroidism started on tapazole 5 mg po tid today continous feeding on hold for bleeding epistaxis vs upper GI , steroids was decreased to 20 bid blood glucose log :150-200 today , NO hypoglycemia Allergy NKDA Past medical history : HTN , pedal edema Past surgical history : not documented Psychiatry history : (+) psychiatry disorder Social history : (+)smoking , ETOH use , illicit drug use Family history : unknown ROS: Constitutional: no fever ,tiredness/weakness .HEENT: no earache, change in voice .Respiratory: no cough, sob . CVS :no chest pain, no palpitations . Abdomen : no abdominal pain, no nausea /vomiting , no change bowel movement . 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 Extremities : (+) edema , no tremors . Skin: no itching, no rash Physical exam Well developed Awake & alert , with tube , bleeding bp 134/71 R 14 R pulse 110 , T 101.1 HEENT: norm cephalic, atraumatic , no lid lag , no exophthalmos , mild stare NECK: supple, no palpable lymphadenopathy THYROID: unable to palpable thyroid , not tender CHEST: fair air entry, bilateral, CVS: S1,S2 , tachycardia ABDOMEN: bowel sound present, benign, obese, no wide purple striae , no bruises EXTREMITIES: bilateral hyper pigmented skin with edema, clubbing or cyanosis, no palpable hand tremors Skin : acanthosis nigricans lab: tsh < 0.02 ,ft4 2.31 , t4 12.1 , a1c 14 , wbc 10.4 Assessment uncontrolled IDDM hyperthyroidisim with afib , on cardiazem & lopressor bilateral cellutitis a fib bleeding /fever obesity Plan -continue lantus 10 units bid continue humalin R low dose coverage q6h hold humalin r 4 units q6h , off feeding increase tapazole 10 mg po bid f/u thyroid antibodies Status: Chronic (2) Hyperthyroidism Status: Chronic (3) Atrial fibrillation with rapid ventricular response Status: Acute (4) Bilateral lower leg cellulitis Status: Acute
[2016-11-13] MEDS ORDERED: (Lantus) Insulin Glargine, Recombinant SC SCH ×2 (22:00)
--- NOTE | 2016-11-14 00:07 | OP ---
PROCEDURE DATE: 11/13/2016 PREOPERATIVE DIAGNOSIS: Posterior epistaxis. POSTOPERATIVE DIAGNOSIS: Posterior epistaxis. PROCEDURE: Posterior pack. PROCEDURE IN DETAIL: The patient was already intubated in the supine position. A Hemphill catheter was inserted in the nasal cavity. The balloon was inflated into the nasopharynx. Vaseline gauze was us ed to pack the nose going from posterior to anterior direction on the right where the Hemphill catheter was placed. The left side was also packed using Vaseline gauze going from a posterior to anterior di rection. Clamp was placed on the Hemphill catheter and was secured in position. Care was taken to make sure that the clamp was not putting pressure on the nasal ala. Bleeding was controlled. The patien t tolerated procedure well. Alexis Gupta MD cc: [id number] TT: 11/14/2016 00:06:51 [email or web address]
[2016-11-14] MEDS: Metoprolol 1 mg/ml Inj IVP SCH ×4 (02:00→19:49)
[2016-11-14 04:58] LABS: ABG ALLEN TEST POS; ABG MECHANICAL RATE 14; ARTERIAL BLOOD HGB O2 SAT 96.7 % (95.0-98.0); ATERIAL BLOOD GAS PEEP 5; CARBOXYHEMOGLOBIN 2.1 % (0.5-1.5); DRAW SITE RR; METHEMOGLOBIN 1.2 % (0.0-3.0)
[2016-11-14] MEDS: (Novolin R) Insulin Human Regular 100 units/ml vial SC SCH ×4 (05:50→18:08)
[2016-11-14] MEDS: Oxymetazoline 0.05% Nasal Spray (30 ml) NS SCH ×2 (06:00→17:22)
[2016-11-14 06:44] LABS: HEMATOCRIT 37.4 % (34.0-47.0); MEAN CELL VOLUME 91.8 fL (81.0-99.0); MEAN CORPUSCULAR HEMOGLOBIN 28.9 pg (27.0-31.0); MEAN CORPUSCULAR HGB CONC 31.5 g/dL (33.0-37.0); MEAN PLATELET VOLUME 10.1 fL (7.2-11.7); RED CELL DISTRIBUTION WIDTH 14.6 % (11.5-14.5); WHITE BLOOD COUNT 11.1 K/uL (4.8-10.8)
[2016-11-14 07:07] LABS: CHLORIDE 104 mmol/L (98-107); POTASSIUM 3.2 mmol/L (3.6-5.2); SODIUM 151 mmol/L (132-148)
[2016-11-14 07:09] LABS: ALB/GLOB RATIO 0.9 (1.0-2.1); ALKALINE PHOSPHATASE 72 U/L (38-126); ALT/SGPT 43 U/L (9-52); AST/SGOT 32 U/L (14-36); BILIRUBIN,TOTAL 1.4 mg/dL (0.2-1.3); BLOOD UREA NITROGEN 41 mg/dL (7-17); CARBON DIOXIDE 35 mmol/L (22-30); GFR AFRICAN-AMERICAN > 60; TOTAL PROTEIN 5.2 g/dL (6.3-8.3)
[2016-11-14 07:10] LABS: GLUCOSE,RANDOM 288 mg/dL (65-105); MAGNESIUM 2.1 mg/dL (1.6-2.3); PHOSPHOROUS 4.5 mg/dL (2.5-4.5)
--- NOTE | 2016-11-14 07:30 | CP.CCUPN ---
<Eloina Allen - Last Filed: 11/14/16 15:35> CCU Subjective - Physician Review Subjective (Free Text): 11/08/16 13:06 Pt seen in mild distress requiring intubation. Two large pieces of dried mucus were extracted from the patient's throat obstructing vocal cords. Patient intubated. TLC line was also placed to ensure better IV access. As there is no power of deputy attorney general or legal guardian, an administrative consent was obtained for central line. An ROS could not be obtained at this time because patient is intubated and sedated. 11/09/16 13:15 Patient seen at beside intubated and sedated. GCS 8T (FiO2 60 PEEP 5 VT 500 RR 16). No acute events overnight per nursing. A fib is rate controlled. Patient is stable. New vent settings after rounds PRVC (FiO2 60, PEEP 5, RR 12 VT 500). ROS couldn't be obtained because patient is intubated and sedated. 11/10/16 16:50 Pt seen and examined in no acute distress. Patient spiked a fever during overnight shift which initially responded to Tylenol and later returned during the morning shift. Patient administered tylenol and cooling blankets. Patient underwent thoracentesis for pleural effusion. Tolerated procedure well. Patient is rate controlled. ROS couldn't be obtained because patient is intubated and sedated. 11/11/16 8:34 Pt seen and examined in no acute distress. Patient seen at beside intubated and sedated. (FiO2 50 PEEP 5 RR 14 VT 500). Patient is awake, but does not follow commands. Patient has low grade fever this morning (T max 100.2, T 99.0-100.2). A fib is rate controlled. Patient is stable. ROS couldn't be obtained because patient was intubated and sedated at the time of evaluation 11/14/16 15:35 Patient seen at bedside in no acute distress. Patient intubated with vent settings of FiO2 50%, RR 14, PEEP 5, TV 500% and is saturating well at 100%. GCS 10T (E4 VT M6). Patient's last dose of propofol was given 11/12. Patient opens eyes spontaneously and moves extremities on her own. CPAP trial was done after morning rounds. Patient was tachycardic prior to morning rounds, but is currently rate controlled. Patient is stable. Patient spiked a fever overnight and is currently having a low grade fever (T max 101.1, T current 99.3). ROS could not be obtained because patient is intubated at time of evaluation. Over the weekend, NGT removed and replaced with OGT with Afrin spray in nose bilaterally. Right sided nasal packing inserted where NGT had been. CCU Objective - Vital Signs / Intake & Output Vital Signs (Last 4 hours): Vital Signs Temp Pulse Resp BP Pulse Ox 11/14/16 06:03 118 H 13 104/59 L 100 11/14/16 05:03 108 H 14 105/60 100 11/14/16 04:04 106 H 14 123/57 L 100 11/14/16 04:00 98.7 F Intake and Output (Last 8hrs): Intake & Output 11/13/16 11/14/16 11/14/16 22:59 06:59 14:59 Intake Total 200 500 Output Total 2200 4200 Balance -2000 -3700 Weight 239 lb 10.279 oz Intake: Intake, IV Amount 200 Right Distal Port 0 Right Proximal Port 200 Internal Jugular Oral 500 Tube Feeding 0 Output: Drainage 400 OGT 400 Urine 1900 3800 Urethral ([place]) 1900 3800 Stool 0 Other 300 - Physical Exam Head: Positive for: Atraumatic, Normocephalic Pupils: Positive for: PERRL. Negative for: Sluggish, Non-Reactive Extroacular Muscles: Positive for: EOMI. Negative for: Gaze Palsy Conjunctiva: Positive for: Normal. Negative for: Injected, Icteric Mouth: Positive for: Moist Mucous Membranes Nose (Internal): Positive for: Other (packing in place) Neck: Positive for: Normal Range of Motion, Trachea Midline. Negative for: Meningeal Signs, MIDLINE TENDERNESS, Paraspinal Tenderness, JVD, Lymphadenopathy , Bruit, Other Respiratory/Chest: Positive for: Wheezes, Decreased Breath Sounds, Other ( intubated). Negative for: Rales Cardiovascular: Positive for: Irregular Rhythm, Peripheal Pulses Present, Tachycardic. Negative for: Murmurs, Normal S1, S2 Abdomen: Negative for: Tenderness, Distention Upper Extremity: Positive for: Normal Inspection Lower Extremity: Positive for: Edema Neurological: Negative for: Speech Normal Psychiatric: Negative for: Alert, Oriented x 3 - Medications Active Medications: Active Medications Generic Name Dose Route Start Last Admin Trade Name Freq PRN Reason Stop Dose Admin Acetaminophen 650 mg 11/13/16 20:13 11/13/16 20:15 Tylenol 650 Mg Supp TN 650 mg Q6 PRN Administration temperature >101 F Acetazolamide 250 mg 11/13/16 18:00 11/14/16 05:50 Diamox 500 Mg Inj IV 11/14/16 12:01 250 mg Q6 CRISTOBAL Administration Diltiazem HCl 180 mg 11/11/16 11:00 11/13/16 10:05 Cardizem Cd PO 180 mg DAILY CRISTOBAL Administration Propofol 100 mls @ 3.493 mls/hr 11/08/16 08:29 11/12/16 07:06 Diprivan IV 7 mcg/kg/min .Q24H PRN Titration TITRATE PER MD ORDER Protocol 5 MCG/KG/MIN Insulin Glargine 10 unit 11/12/16 21:00 11/13/16 20:00 Lantus SC Not Given 08,1999 [facility] Insulin Human Regular 0 unit 11/13/16 08:40 11/14/16 05:50 Novolin R SC 8 unit Q6 CRISTOBAL Administration Protocol Methimazole 10 mg 11/14/16 10:00 Tapazole PO BID CRISTOBAL Methylprednisolone 20 mg 11/13/16 09:30 11/13/16 23:00 Solu-Medrol IVP 20 mg Q12 CRISTOBAL Administration Metoprolol Tartrate 2.5 mg 11/10/16 20:14 11/14/16 02:00 Lopressor IVP 2.5 mg Q6H CRISTOBAL Administration Nystatin 0 ea 11/04/16 18:00 11/13/16 17:19 Mycostatin Cream TOP 1 applic TID CRISTOBAL Administration Oxymetazoline HCl 0 ml 11/14/16 06:00 11/14/16 06:00 Afrin 0.05% NS Not Given Q12H CRISTOBAL Pantoprazole Sodium 40 mg 11/04/16 16:45 11/13/16 10:00 Protonix Inj IVP 40 mg DAILY CRISTOBAL Administration Senna/Docusate Sodium 1 tab 11/12/16 11:30 11/13/16 18:00 Senokot S 50 Mg-8.6 Mg PO Not Given BID CRISTOBAL Vitamin A 1 ea 11/09/16 18:00 11/13/16 18:00 Vitamin A & D Oint Ud Foilpak TOP 1 ea BID CRISTOBAL Administration - Patient Studies Lab Studies: Lab Studies 11/14/16 11/14/16 11/14/16 Range/Units 06:34 06:33 05:45 WBC 11.1 H (4.8-10.8) K/uL RBC 4.08 (3.80-5.20) Mil/uL Hgb 11.8 (11.0-16.0) g/dL Hct 37.4 (34.0-47.0) % MCV 91.8 (81.0-99.0) fL MCH 28.9 (27.0-31.0) pg MCHC 31.5 L (33.0-37.0) g/dL RDW 14.6 H (11.5-14.5) % Plt Count 160 (130-400) K/uL MPV 10.1 (7.2-11.7) fL Neut % (Auto) (50.0-75.0) % Lymph % (Auto) (20.0-40.0) % Robertson % (Auto) (0.0-10.0) % Eos % (Auto) (0.0-4.0) % Baso % (Auto) (0.0-2.0) % Neut # (1.8-7.0) K/uL Lymph # (1.0-4.3) K/uL Robertson # (0.0-0.8) K/uL Eos # (0.0-0.7) K/uL Baso # (0.0-0.2) K/uL Plt Function Assay K/uL Puncture Site pCO2 (35-45) mm/Hg pO2 (80-100) mm/Hg HCO3 (21-28) mmol/L ABG pH (7.35-7.45) ABG Total CO2 (22-28) mmol/L ABG O2 Saturation (95-98) % ABG Base Excess (-2.0-3.0) mmol/L ABG Hemoglobin (11.7-17.4) g/dL ABG Carboxyhemoglobin (0.5-1.5) % POC ABG HHb (Measured) (0.0-5.0) % ABG Methemoglobin (0.0-3.0) % Chaz Test A-a O2 Difference mm/Hg Respiratory Index Hgb O2 Saturation (95.0-98.0) % Mechanical Rate FiO2 % Tidal Volume PEEP Sodium 151 H (132-148) mmol/L Potassium 3.2 L (3.6-5.2) mmol/L Chloride 104 (98-107) mmol/L Carbon Dioxide 35 H (22-30) mmol/L Anion Gap 15 (10-20) BUN 41 H (7-17) mg/dL Creatinine 0.9 (0.7-1.2) MG/DL Est GFR ( Amer) > 60 Est GFR (Non-Af Amer) > 60 POC Glucose (mg/dL) 311 H (65-110) mg/dL Random Glucose 288 H (65-105) mg/dL Calcium 9.0 (8.6-10.4) mg/dl Phosphorus 4.5 (2.5-4.5) mg/dL Magnesium 2.1 (1.6-2.3) mg/dL Total Bilirubin 1.4 H (0.2-1.3) mg/dL AST 32 (14-36) U/L ALT 43 (9-52) U/L Alkaline Phosphatase 72 (38-126) U/L Total Protein 5.2 L (6.3-8.3) g/dL Albumin 2.5 L (3.5-5.0) g/dL Globulin 2.7 (2.2-3.9) gm/dL Albumin/Globulin Ratio 0.9 L (1.0-2.1) Pleural Amylase (()) U/L Pleural Lipase (<10) U/L Blood Type Blood Type Confirm Antibody Screen 11/14/16 11/14/16 11/13/16 Range/Units 04:35 00:01 20:41 WBC 8.4 (4.8-10.8) K/uL RBC 4.04 (3.80-5.20) Mil/uL Hgb 11.7 (11.0-16.0) g/dL Hct 37.0 (34.0-47.0) % MCV 91.5 (81.0-99.0) fL MCH 28.9 (27.0-31.0) pg MCHC 31.5 L (33.0-37.0) g/dL RDW 14.9 H (11.5-14.5) % Plt Count 158 (130-400) K/uL MPV 9.5 (7.2-11.7) fL Neut % (Auto) 76.2 H (50.0-75.0) % Lymph % (Auto) 15.5 L (20.0-40.0) % Robertson % (Auto) 7.6 (0.0-10.0) % Eos % (Auto) 0.1 (0.0-4.0) % Baso % (Auto) 0.6 (0.0-2.0) % Neut # 6.4 (1.8-7.0) K/uL Lymph # 1.3 (1.0-4.3) K/uL Robertson # 0.6 (0.0-0.8) K/uL Eos # 0.0 (0.0-0.7) K/uL Baso # 0.1 (0.0-0.2) K/uL Plt Function Assay K/uL Puncture Site Rr pCO2 43 (35-45) mm/Hg pO2 198 H (80-100) mm/Hg HCO3 32.9 H (21-28) mmol/L ABG pH 7.51 H (7.35-7.45) ABG Total CO2 35.6 H (22-28) mmol/L ABG O2 Saturation 100.0 H (95-98) % ABG Base Excess 10.2 H (-2.0-3.0) mmol/L ABG Hemoglobin 11.6 L (11.7-17.4) g/dL ABG Carboxyhemoglobin 2.1 H (0.5-1.5) % POC ABG HHb (Measured) 0.0 (0.0-5.0) % ABG Methemoglobin 1.2 (0.0-3.0) % Chaz Test Pos A-a O2 Difference 105.0 mm/Hg Respiratory Index 0.5 Hgb O2 Saturation 96.7 (95.0-98.0) % Mechanical Rate 14 FiO2 50.0 % Tidal Volume 500 PEEP 5 Sodium (132-148) mmol/L Potassium (3.6-5.2) mmol/L Chloride (98-107) mmol/L Carbon Dioxide (22-30) mmol/L Anion Gap (10-20) BUN (7-17) mg/dL Creatinine (0.7-1.2) MG/DL Est GFR ( Amer) Est GFR (Non-Af Amer) POC Glucose (mg/dL) 226 H (65-110) mg/dL Random Glucose (65-105) mg/dL Calcium (8.6-10.4) mg/dl Phosphorus (2.5-4.5) mg/dL Magnesium (1.6-2.3) mg/dL Total Bilirubin (0.2-1.3) mg/dL AST (14-36) U/L ALT (9-52) U/L Alkaline Phosphatase (38-126) U/L Total Protein (6.3-8.3) g/dL Albumin (3.5-5.0) g/dL Globulin (2.2-3.9) gm/dL Albumin/Globulin Ratio (1.0-2.1) Pleural Amylase (()) U/L Pleural Lipase (<10) U/L Blood Type Blood Type Confirm Antibody Screen 11/13/16 11/13/16 11/13/16 Range/Units 17:59 17:40 16:26 WBC 10.4 D (4.8-10.8) K/uL RBC 4.32 (3.80-5.20) Mil/uL Hgb 12.5 (11.0-16.0) g/dL Hct 39.6 (34.0-47.0) % MCV 91.7 (81.0-99.0) fL MCH 29.0 (27.0-31.0) pg MCHC 31.6 L (33.0-37.0) g/dL RDW 15.1 H (11.5-14.5) % Plt Count 164 (130-400) K/uL MPV 9.9 (7.2-11.7) fL Neut % (Auto) 75.1 H (50.0-75.0) % Lymph % (Auto) 14.5 L (20.0-40.0) % Robertson % (Auto) 9.8 (0.0-10.0) % Eos % (Auto) 0.1 (0.0-4.0) % Baso % (Auto) 0.5 (0.0-2.0) % Neut # 7.8 H (1.8-7.0) K/uL Lymph # 1.5 (1.0-4.3) K/uL Robertson # 1.0 H (0.0-0.8) K/uL Eos # 0.0 (0.0-0.7) K/uL Baso # 0.1 (0.0-0.2) K/uL Plt Function Assay 79 K/uL Puncture Site pCO2 (35-45) mm/Hg pO2 (80-100) mm/Hg HCO3 (21-28) mmol/L ABG pH (7.35-7.45) ABG Total CO2 (22-28) mmol/L ABG O2 Saturation (95-98) % ABG Base Excess (-2.0-3.0) mmol/L ABG Hemoglobin (11.7-17.4) g/dL ABG Carboxyhemoglobin (0.5-1.5) % POC ABG HHb (Measured) (0.0-5.0) % ABG Methemoglobin (0.0-3.0) % Chaz Test A-a O2 Difference mm/Hg Respiratory Index Hgb O2 Saturation (95.0-98.0) % Mechanical Rate FiO2 % Tidal Volume PEEP Sodium (132-148) mmol/L Potassium (3.6-5.2) mmol/L Chloride (98-107) mmol/L Carbon Dioxide (22-30) mmol/L Anion Gap (10-20) BUN (7-17) mg/dL Creatinine (0.7-1.2) MG/DL Est GFR ( Amer) Est GFR (Non-Af Amer) POC Glucose (mg/dL) 158 H (65-110) mg/dL Random Glucose (65-105) mg/dL Calcium (8.6-10.4) mg/dl Phosphorus (2.5-4.5) mg/dL Magnesium (1.6-2.3) mg/dL Total Bilirubin (0.2-1.3) mg/dL AST (14-36) U/L ALT (9-52) U/L Alkaline Phosphatase (38-126) U/L Total Protein (6.3-8.3) g/dL Albumin (3.5-5.0) g/dL Globulin (2.2-3.9) gm/dL Albumin/Globulin Ratio (1.0-2.1) Pleural Amylase (()) U/L Pleural Lipase (<10) U/L Blood Type Blood Type Confirm Antibody Screen 11/13/16 11/13/16 11/10/16 Range/Units 13:43 12:05 15:30 WBC (4.8-10.8) K/uL RBC (3.80-5.20) Mil/uL Hgb (11.0-16.0) g/dL Hct (34.0-47.0) % MCV (81.0-99.0) fL MCH (27.0-31.0) pg MCHC (33.0-37.0) g/dL RDW (11.5-14.5) % Plt Count (130-400) K/uL MPV (7.2-11.7) fL Neut % (Auto) (50.0-75.0) % Lymph % (Auto) (20.0-40.0) % Robertson % (Auto) (0.0-10.0) % Eos % (Auto) (0.0-4.0) % Baso % (Auto) (0.0-2.0) % Neut # (1.8-7.0) K/uL Lymph # (1.0-4.3) K/uL Robertson # (0.0-0.8) K/uL Eos # (0.0-0.7) K/uL Baso # (0.0-0.2) K/uL Plt Function Assay K/uL Puncture Site pCO2 (35-45) mm/Hg pO2 (80-100) mm/Hg HCO3 (21-28) mmol/L ABG pH (7.35-7.45) ABG Total CO2 (22-28) mmol/L ABG O2 Saturation (95-98) % ABG Base Excess (-2.0-3.0) mmol/L ABG Hemoglobin (11.7-17.4) g/dL ABG Carboxyhemoglobin (0.5-1.5) % POC ABG HHb (Measured) (0.0-5.0) % ABG Methemoglobin (0.0-3.0) % Chaz Test A-a O2 Difference mm/Hg Respiratory Index Hgb O2 Saturation (95.0-98.0) % Mechanical Rate FiO2 % Tidal Volume PEEP Sodium (132-148) mmol/L Potassium (3.6-5.2) mmol/L Chloride (98-107) mmol/L Carbon Dioxide (22-30) mmol/L Anion Gap (10-20) BUN (7-17) mg/dL Creatinine (0.7-1.2) MG/DL Est GFR ( Amer) Est GFR (Non-Af Amer) POC Glucose (mg/dL) 204 H (65-110) mg/dL Random Glucose (65-105) mg/dL Calcium (8.6-10.4) mg/dl Phosphorus (2.5-4.5) mg/dL Magnesium (1.6-2.3) mg/dL Total Bilirubin (0.2-1.3) mg/dL AST (14-36) U/L ALT (9-52) U/L Alkaline Phosphatase (38-126) U/L Total Protein (6.3-8.3) g/dL Albumin (3.5-5.0) g/dL Globulin (2.2-3.9) gm/dL Albumin/Globulin Ratio (1.0-2.1) Pleural Amylase <10 (()) U/L Pleural Lipase 8.0 (<10) U/L Blood Type A POSITIVE Blood Type Confirm A POSITIVE Antibody Screen Negative Laboratory Results - last 24 hr 11/10/16 11/13/16 11/13/16 15:30 12:05 13:43 WBC RBC Hgb Hct MCV MCH MCHC RDW Plt Count MPV Neut % (Auto) Lymph % (Auto) Robertson % (Auto) Eos % (Auto) Baso % (Auto) Neut # Lymph # Robertson # Eos # Baso # Plt Function Assay Puncture Site pCO2 pO2 HCO3 ABG pH ABG Total CO2 ABG O2 Saturation ABG Base Excess ABG Hemoglobin ABG Carboxyhemoglobin POC ABG HHb (Measured) ABG Methemoglobin Chaz Test A-a O2 Difference Respiratory Index Hgb O2 Saturation Mechanical Rate FiO2 Tidal Volume PEEP Sodium Potassium Chloride Carbon Dioxide Anion Gap BUN Creatinine Est GFR ( Amer) Est GFR (Non-Af Amer) POC Glucose (mg/dL) 204 H Random Glucose Calcium Phosphorus Magnesium Total Bilirubin AST ALT Alkaline Phosphatase Total Protein Albumin Globulin Albumin/Globulin Ratio Pleural Amylase <10 Pleural Lipase 8.0 Blood Type A POSITIVE Blood Type Confirm A POSITIVE Antibody Screen Negative 11/13/16 11/13/16 11/13/16 16:26 17:40 17:59 WBC 10.4 D RBC 4.32 Hgb 12.5 Hct 39.6 MCV 91.7 MCH 29.0 MCHC 31.6 L RDW 15.1 H Plt Count 164 MPV 9.9 Neut % (Auto) 75.1 H Lymph % (Auto) 14.5 L Robertson % (Auto) 9.8 Eos % (Auto) 0.1 Baso % (Auto) 0.5 Neut # 7.8 H Lymph # 1.5 Robertson # 1.0 H Eos # 0.0 Baso # 0.1 Plt Function Assay 79 Puncture Site pCO2 pO2 HCO3 ABG pH ABG Total CO2 ABG O2 Saturation ABG Base Excess ABG Hemoglobin ABG Carboxyhemoglobin POC ABG HHb (Measured) ABG Methemoglobin Chaz Test A-a O2 Difference Respiratory Index Hgb O2 Saturation Mechanical Rate FiO2 Tidal Volume PEEP Sodium Potassium Chloride Carbon Dioxide Anion Gap BUN Creatinine Est GFR ( Amer) Est GFR (Non-Af Amer) POC Glucose (mg/dL) 158 H Random Glucose Calcium Phosphorus Magnesium Total Bilirubin AST ALT Alkaline Phosphatase Total Protein Albumin Globulin Albumin/Globulin Ratio Pleural Amylase Pleural Lipase Blood Type Blood Type Confirm Antibody Screen 11/13/16 11/14/16 11/14/16 20:41 00:01 04:35 WBC 8.4 RBC 4.04 Hgb 11.7 Hct 37.0 MCV 91.5 MCH 28.9 MCHC 31.5 L RDW 14.9 H Plt Count 158 MPV 9.5 Neut % (Auto) 76.2 H Lymph % (Auto) 15.5 L Robertson % (Auto) 7.6 Eos % (Auto) 0.1 Baso % (Auto) 0.6 Neut # 6.4 Lymph # 1.3 Robertson # 0.6 Eos # 0.0 Baso # 0.1 Plt Function Assay Puncture Site Rr pCO2 43 pO2 198 H HCO3 32.9 H ABG pH 7.51 H ABG Total CO2 35.6 H ABG O2 Saturation 100.0 H ABG Base Excess 10.2 H ABG Hemoglobin 11.6 L ABG Carboxyhemoglobin 2.1 H POC ABG HHb (Measured) 0.0 ABG Methemoglobin 1.2 Chaz Test Pos A-a O2 Difference 105.0 Respiratory Index 0.5 Hgb O2 Saturation 96.7 Mechanical Rate 14 FiO2 50.0 Tidal Volume 500 PEEP 5 Sodium Potassium Chloride Carbon Dioxide Anion Gap BUN Creatinine Est GFR ( Amer) Est GFR (Non-Af Amer) POC Glucose (mg/dL) 226 H Random Glucose Calcium Phosphorus Magnesium Total Bilirubin AST ALT Alkaline Phosphatase Total Protein Albumin Globulin Albumin/Globulin Ratio Pleural Amylase Pleural Lipase Blood Type Blood Type Confirm Antibody Screen 11/14/16 11/14/16 11/14/16 05:45 06:33 06:34 WBC 11.1 H RBC 4.08 Hgb 11.8 Hct 37.4 MCV 91.8 MCH 28.9 MCHC 31.5 L RDW 14.6 H Plt Count 160 MPV 10.1 Neut % (Auto) Lymph % (Auto) Robertson % (Auto) Eos % (Auto) Baso % (Auto) Neut # Lymph # Robertson # Eos # Baso # Plt Function Assay Puncture Site pCO2 pO2 HCO3 ABG pH ABG Total CO2 ABG O2 Saturation ABG Base Excess ABG Hemoglobin ABG Carboxyhemoglobin POC ABG HHb (Measured) ABG Methemoglobin Chaz Test A-a O2 Difference Respiratory Index Hgb O2 Saturation Mechanical Rate FiO2 Tidal Volume PEEP Sodium 151 H Potassium 3.2 L Chloride 104 Carbon Dioxide 35 H Anion Gap 15 BUN 41 H Creatinine 0.9 Est GFR ( Amer) > 60 Est GFR (Non-Af Amer) > 60 POC Glucose (mg/dL) 311 H Random Glucose 288 H Calcium 9.0 Phosphorus 4.5 Magnesium 2.1 Total Bilirubin 1.4 H AST 32 ALT 43 Alkaline Phosphatase 72 Total Protein 5.2 L Albumin 2.5 L Globulin 2.7 Albumin/Globulin Ratio 0.9 L Pleural Amylase Pleural Lipase Blood Type Blood Type Confirm Antibody Screen Fingerstick Blood Sugar Results: 311 Review of Systems - Review of Systems Systems not reviewed;Unavailable: Intubated Review of Systems: see subjective Assessment/Plan - Assessment and Plan (Free Text) Assessment: 61 F with history of hyperthyroidism, admitted to ED for hyperglycemia, altered mental status, and a-fib. Patient was admitted to ICU for treatment of DKA and patient continues to be monitored in the ICU. Over the weekend, patient had an episode of epistaxis, which is currently being monitored. Patient will be tried on CPAP today. Plan: Neuro: Neurochecks Q4 GCS 10T (E4 VT M6) Sedation: Propofol 100 cc @ 3.493 cc/hr IV Q24H (5 mcg/kg/min) Cardiovascular: HR stable, continue to monitor. May need to adjust BP meds if HR unstable Imagin/26 CT neck: no significant evidence of lymphadenopathy, moderately enlarged ET and NG tube CTA of chest/abdomen/pelvis: suspicious mass lesion at right kidney midpole 4.2 x 4.5. Moderate enlargement of bilateral adrenal gland with right > left. low attenuation nodules. increase in size of left pleural effusion since pervious study. complete collapse of left lower lobe. 2.8 cm low-attenuation lesion at anterior upper portion of spleen. foci of cortical irregularity and lucency in spine and right ribs. cardiomegaly 11/13 CTA of chest/abdomen/pelvis: f/u 11/10 Duplex scan lower extremity artery: no evidence of deep or superficial vein thrombosis of Right and Left lower extremity. 11/09 Echocardiogram: LVEF 65%, elevated diastolic filling pressures. Metoprolol 2.5 mg IVP Q6H CRISTOBAL Acetazolamide 250 mg IV Q6 CRISTOBAL Amiodarone HCl 200 mg PO TID Pulmonary: f/u CPAP trial vent settings 11/14 Vent Setings: FiO2 50%, RR 14, PEEP 5, TV 500% and is saturating well at 100%. 11/14 pH 7.51, CO2 43, O2 198, HCO3 32.9 Imagin/27 CXR: biapical thickening with upper lobe granulomatous changes. moderate venous congestion. prominent bibasilar airspace opacities with moderate left and small right pleural effusion 11/13 CXR: small left pleural effusion. congestive change. no infiltrates Endo: DKA v HHS Diabetes History of Hyperthyroidism Methimazole 10 mg PO BID CRISTOBAL Novolin R Q6H CRISTOBAL Lantus 15 units 0600 and 2000 CRISTOBAL Accucheck Q6 ACHS GI: Fluid differential Pathologist review - few sheets of reactive mesothelial cells. scattered lymphocytes, macrophages, and RBCs negative for malignant cells. mildly inflamed pleural fluid negative for malignant cells. Senna/Docusate 50 mg - 8.6 mg 1 tab PO BID Vitamin A & D oint UD foilpak 1 ea TOP BID CRISTOBAL Daily CMP /Nephro: 850/6740 = -5890 Monitor I/Os Hemphill Inserted Maintain Hemphill care BUN/Cr: 41/0.9 Hypokalemia - repleted Monitor I/Os Daily CMP Heme: H&H 11.8/37.4 epistaxis episode x 1 Oxymetazoline Hcl NS Q12H CRISTOBAL Daily CBC ID: Daily CBC Nystatin TOP TID CRISTOBAL Acetaminophen 650 mg TN Q6 PRN temperature >101 F Prophylaxis: DVT: SCDs, other anticoagulation held due to episode of epistaxis GI: Protonix 40 mg IVP daily <Darlene Baum - Last Filed: 11/14/16 19:00> CCU Objective - Vital Signs / Intake & Output Vital Signs (Last 4 hours): Vital Signs Temp Pulse Resp BP Pulse Ox 11/14/16 17:04 118 H 14 146/60 100 11/14/16 16:04 123 H 14 144/57 L 100 11/14/16 16:00 99.9 F H 128 H 14 100 11/14/16 15:03 119 H 15 129/37 L 100 11/14/16 15:00 124 H 17 100 Intake and Output (Last 8hrs): Intake & Output 11/14/16 11/14/16 11/14/16 06:59 14:59 22:59 Intake Total 500 360 100 Output Total 4200 1055 475 Balance -3700 -695 -375 Weight 239 lb 10.279 oz Intake: Intake, IV Amount 300 Right Proximal Port 300 Internal Jugular Oral 500 Tube Feeding 60 100 Output: Drainage 400 OGT 400 Urine 3800 1055 475 Urethral (Hemphill) 3800 1055 475 - Medications Active Medications: Active Medications Generic Name Dose Route Start Last Admin Trade Name Freq PRN Reason Stop Dose Admin Acetaminophen 650 mg 11/13/16 20:13 11/14/16 14:46 Tylenol 650 Mg Supp TN 650 mg Q6 PRN Administration temperature >101 F Amiodarone HCl 200 mg 11/14/16 10:00 11/14/16 17:25 Cordarone PO 200 mg TID CRISTOBAL Administration Propofol 100 mls @ 3.493 mls/hr 11/08/16 08:29 11/12/16 07:06 Diprivan IV 7 mcg/kg/min .Q24H PRN Titration TITRATE PER MD ORDER Protocol 5 MCG/KG/MIN Diltiazem HCl 125 mg/ Sodium 125 mls @ 5 mls/hr 11/14/16 19:00 Chloride IV .Q24H [facility] Protocol 5 MG/HR Insulin Glargine 15 unit 11/14/16 10:14 Lantus SC 0800,2000 [facility] Insulin Human Regular 0 unit 11/13/16 08:40 11/14/16 18:08 Novolin R SC 8 unit Q6 CRISTOBAL Administration Protocol Methimazole 10 mg 11/14/16 10:00 11/14/16 17:26 Tapazole PO 10 mg BID [facility] Administration Methylprednisolone 20 mg 11/13/16 09:30 11/14/16 09:14 Solu-Medrol IVP 20 mg Q12 [facility] Administration Metoprolol Tartrate 2.5 mg 11/10/16 20:14 11/14/16 14:47 Lopressor IVP 2.5 mg Q6H [facility] Administration Nystatin 0 ea 11/04/16 18:00 11/14/16 17:26 Mycostatin Cream TOP 1 applic TID [facility] Administration Oxymetazoline HCl 0 ml 11/14/16 06:00 11/14/16 17:22 Afrin 0.05% NS Not Given Q12H [facility] Pantoprazole Sodium 40 mg 11/04/16 16:45 11/14/16 09:13 Protonix Inj IVP 40 mg DAILY [facility] Administration Senna/Docusate Sodium 1 tab 11/12/16 11:30 11/14/16 17:26 Senokot S 50 Mg-8.6 Mg PO 1 tab BID [facility] Administration Vitamin A 1 ea 11/09/16 18:00 11/14/16 17:26 Vitamin A & D Oint Ud Foilpak TOP 1 ea BID [facility] Administration - Patient Studies Lab Studies: Lab Studies 11/14/16 11/14/16 11/14/16 Range/Units 17:48 11:26 06:34 WBC 11.1 H (4.8-10.8) K/uL RBC 4.08 (3.80-5.20) Mil/uL Hgb 11.8 (11.0-16.0) g/dL Hct 37.4 (34.0-47.0) % MCV 91.8 (81.0-99.0) fL MCH 28.9 (27.0-31.0) pg MCHC 31.5 L (33.0-37.0) g/dL RDW 14.6 H (11.5-14.5) % Plt Count 160 (130-400) K/uL MPV 10.1 (7.2-11.7) fL Neut % (Auto) (50.0-75.0) % Lymph % (Auto) (20.0-40.0) % Robertson % (Auto) (0.0-10.0) % Eos % (Auto) (0.0-4.0) % Baso % (Auto) (0.0-2.0) % Neut # (1.8-7.0) K/uL Lymph # (1.0-4.3) K/uL Robertson # (0.0-0.8) K/uL Eos # (0.0-0.7) K/uL Baso # (0.0-0.2) K/uL Puncture Site pCO2 (35-45) mm/Hg pO2 (80-100) mm/Hg HCO3 (21-28) mmol/L ABG pH (7.35-7.45) ABG Total CO2 (22-28) mmol/L ABG O2 Saturation (95-98) % ABG Base Excess (-2.0-3.0) mmol/L ABG Hemoglobin (11.7-17.4) g/dL ABG Carboxyhemoglobin (0.5-1.5) % POC ABG HHb (Measured) (0.0-5.0) % ABG Methemoglobin (0.0-3.0) % Chaz Test A-a O2 Difference mm/Hg Respiratory Index Hgb O2 Saturation (95.0-98.0) % Mechanical Rate FiO2 % Tidal Volume PEEP Sodium (132-148) mmol/L Potassium (3.6-5.2) mmol/L Chloride (98-107) mmol/L Carbon Dioxide (22-30) mmol/L Anion Gap (10-20) BUN (7-17) mg/dL Creatinine (0.7-1.2) MG/DL Est GFR ( Amer) Est GFR (Non-Af Amer) POC Glucose (mg/dL) 302 H 255 H (65-110) mg/dL Random Glucose (65-105) mg/dL Calcium (8.6-10.4) mg/dl Phosphorus (2.5-4.5) mg/dL Magnesium (1.6-2.3) mg/dL Total Bilirubin (0.2-1.3) mg/dL AST (14-36) U/L ALT (9-52) U/L Alkaline Phosphatase (38-126) U/L Total Protein (6.3-8.3) g/dL Albumin (3.5-5.0) g/dL Globulin (2.2-3.9) gm/dL Albumin/Globulin Ratio (1.0-2.1) 11/14/16 11/14/16 11/14/16 Range/Units 06:33 05:45 04:35 WBC (4.8-10.8) K/uL RBC (3.80-5.20) Mil/uL Hgb (11.0-16.0) g/dL Hct (34.0-47.0) % MCV (81.0-99.0) fL MCH (27.0-31.0) pg MCHC (33.0-37.0) g/dL RDW (11.5-14.5) % Plt Count (130-400) K/uL MPV (7.2-11.7) fL Neut % (Auto) (50.0-75.0) % Lymph % (Auto) (20.0-40.0) % Robertson % (Auto) (0.0-10.0) % Eos % (Auto) (0.0-4.0) % Baso % (Auto) (0.0-2.0) % Neut # (1.8-7.0) K/uL Lymph # (1.0-4.3) K/uL Robertson # (0.0-0.8) K/uL Eos # (0.0-0.7) K/uL Baso # (0.0-0.2) K/uL Puncture Site Rr pCO2 43 (35-45) mm/Hg pO2 198 H (80-100) mm/Hg HCO3 32.9 H (21-28) mmol/L ABG pH 7.51 H (7.35-7.45) ABG Total CO2 35.6 H (22-28) mmol/L ABG O2 Saturation 100.0 H (95-98) % ABG Base Excess 10.2 H (-2.0-3.0) mmol/L ABG Hemoglobin 11.6 L (11.7-17.4) g/dL ABG Carboxyhemoglobin 2.1 H (0.5-1.5) % POC ABG HHb (Measured) 0.0 (0.0-5.0) % ABG Methemoglobin 1.2 (0.0-3.0) % Chaz Test Pos A-a O2 Difference 105.0 mm/Hg Respiratory Index 0.5 Hgb O2 Saturation 96.7 (95.0-98.0) % Mechanical Rate 14 FiO2 50.0 % Tidal Volume 500 PEEP 5 Sodium 151 H (132-148) mmol/L Potassium 3.2 L (3.6-5.2) mmol/L Chloride 104 (98-107) mmol/L Carbon Dioxide 35 H (22-30) mmol/L Anion Gap 15 (10-20) BUN 41 H (7-17) mg/dL Creatinine 0.9 (0.7-1.2) MG/DL Est GFR ( Amer) > 60 Est GFR (Non-Af Amer) > 60 POC Glucose (mg/dL) 311 H (65-110) mg/dL Random Glucose 288 H (65-105) mg/dL Calcium 9.0 (8.6-10.4) mg/dl Phosphorus 4.5 (2.5-4.5) mg/dL Magnesium 2.1 (1.6-2.3) mg/dL Total Bilirubin 1.4 H (0.2-1.3) mg/dL AST 32 (14-36) U/L ALT 43 (9-52) U/L Alkaline Phosphatase 72 (38-126) U/L Total Protein 5.2 L (6.3-8.3) g/dL Albumin 2.5 L (3.5-5.0) g/dL Globulin 2.7 (2.2-3.9) gm/dL Albumin/Globulin Ratio 0.9 L (1.0-2.1) 11/14/16 11/13/16 Range/Units 00:01 20:41 WBC 8.4 (4.8-10.8) K/uL RBC 4.04 (3.80-5.20) Mil/uL Hgb 11.7 (11.0-16.0) g/dL Hct 37.0 (34.0-47.0) % MCV 91.5 (81.0-99.0) fL MCH 28.9 (27.0-31.0) pg MCHC 31.5 L (33.0-37.0) g/dL RDW 14.9 H (11.5-14.5) % Plt Count 158 (130-400) K/uL MPV 9.5 (7.2-11.7) fL Neut % (Auto) 76.2 H (50.0-75.0) % Lymph % (Auto) 15.5 L (20.0-40.0) % Robertson % (Auto) 7.6 (0.0-10.0) % Eos % (Auto) 0.1 (0.0-4.0) % Baso % (Auto) 0.6 (0.0-2.0) % Neut # 6.4 (1.8-7.0) K/uL Lymph # 1.3 (1.0-4.3) K/uL Robertson # 0.6 (0.0-0.8) K/uL Eos # 0.0 (0.0-0.7) K/uL Baso # 0.1 (0.0-0.2) K/uL Puncture Site pCO2 (35-45) mm/Hg pO2 (80-100) mm/Hg HCO3 (21-28) mmol/L ABG pH (7.35-7.45) ABG Total CO2 (22-28) mmol/L ABG O2 Saturation (95-98) % ABG Base Excess (-2.0-3.0) mmol/L ABG Hemoglobin (11.7-17.4) g/dL ABG Carboxyhemoglobin (0.5-1.5) % POC ABG HHb (Measured) (0.0-5.0) % ABG Methemoglobin (0.0-3.0) % Chaz Test A-a O2 Difference mm/Hg Respiratory Index Hgb O2 Saturation (95.0-98.0) % Mechanical Rate FiO2 % Tidal Volume PEEP Sodium (132-148) mmol/L Potassium (3.6-5.2) mmol/L Chloride (98-107) mmol/L Carbon Dioxide (22-30) mmol/L Anion Gap (10-20) BUN (7-17) mg/dL Creatinine (0.7-1.2) MG/DL Est GFR ( Amer) Est GFR (Non-Af Amer) POC Glucose (mg/dL) 226 H (65-110) mg/dL Random Glucose (65-105) mg/dL Calcium (8.6-10.4) mg/dl Phosphorus (2.5-4.5) mg/dL Magnesium (1.6-2.3) mg/dL Total Bilirubin (0.2-1.3) mg/dL AST (14-36) U/L ALT (9-52) U/L Alkaline Phosphatase (38-126) U/L Total Protein (6.3-8.3) g/dL Albumin (3.5-5.0) g/dL Globulin (2.2-3.9) gm/dL Albumin/Globulin Ratio (1.0-2.1) Laboratory Results - last 24 hr 11/13/16 11/14/16 11/14/16 20:41 00:01 04:35 WBC 8.4 RBC 4.04 Hgb 11.7 Hct 37.0 MCV 91.5 MCH 28.9 MCHC 31.5 L RDW 14.9 H Plt Count 158 MPV 9.5 Neut % (Auto) 76.2 H Lymph % (Auto) 15.5 L Robertson % (Auto) 7.6 Eos % (Auto) 0.1 Baso % (Auto) 0.6 Neut # 6.4 Lymph # 1.3 Robertson # 0.6 Eos # 0.0 Baso # 0.1 Puncture Site Rr pCO2 43 pO2 198 H HCO3 32.9 H ABG pH 7.51 H ABG Total CO2 35.6 H ABG O2 Saturation 100.0 H ABG Base Excess 10.2 H ABG Hemoglobin 11.6 L ABG Carboxyhemoglobin 2.1 H POC ABG HHb (Measured) 0.0 ABG Methemoglobin 1.2 Chaz Test Pos A-a O2 Difference 105.0 Respiratory Index 0.5 Hgb O2 Saturation 96.7 Mechanical Rate 14 FiO2 50.0 Tidal Volume 500 PEEP 5 Sodium Potassium Chloride Carbon Dioxide Anion Gap BUN Creatinine Est GFR ( Amer) Est GFR (Non-Af Amer) POC Glucose (mg/dL) 226 H Random Glucose Calcium Phosphorus Magnesium Total Bilirubin AST ALT Alkaline Phosphatase Total Protein Albumin Globulin Albumin/Globulin Ratio 11/14/16 11/14/16 11/14/16 05:45 06:33 06:34 WBC 11.1 H RBC 4.08 Hgb 11.8 Hct 37.4 MCV 91.8 MCH 28.9 MCHC 31.5 L RDW 14.6 H Plt Count 160 MPV 10.1 Neut % (Auto) Lymph % (Auto) Robertson % (Auto) Eos % (Auto) Baso % (Auto) Neut # Lymph # Robertson # Eos # Baso # Puncture Site pCO2 pO2 HCO3 ABG pH ABG Total CO2 ABG O2 Saturation ABG Base Excess ABG Hemoglobin ABG Carboxyhemoglobin POC ABG HHb (Measured) ABG Methemoglobin Chaz Test A-a O2 Difference Respiratory Index Hgb O2 Saturation Mechanical Rate FiO2 Tidal Volume PEEP Sodium 151 H Potassium 3.2 L Chloride 104 Carbon Dioxide 35 H Anion Gap 15 BUN 41 H Creatinine 0.9 Est GFR ( Amer) > 60 Est GFR (Non-Af Amer) > 60 POC Glucose (mg/dL) 311 H Random Glucose 288 H Calcium 9.0 Phosphorus 4.5 Magnesium 2.1 Total Bilirubin 1.4 H AST 32 ALT 43 Alkaline Phosphatase 72 Total Protein 5.2 L Albumin 2.5 L Globulin 2.7 Albumin/Globulin Ratio 0.9 L 11/14/16 11/14/16 11:26 17:48 WBC RBC Hgb Hct MCV MCH MCHC RDW Plt Count MPV Neut % (Auto) Lymph % (Auto) Robertson % (Auto) Eos % (Auto) Baso % (Auto) Neut # Lymph # Robertson # Eos # Baso # Puncture Site pCO2 pO2 HCO3 ABG pH ABG Total CO2 ABG O2 Saturation ABG Base Excess ABG Hemoglobin ABG Carboxyhemoglobin POC ABG HHb (Measured) ABG Methemoglobin Chaz Test A-a O2 Difference Respiratory Index Hgb O2 Saturation Mechanical Rate FiO2 Tidal Volume PEEP Sodium Potassium Chloride Carbon Dioxide Anion Gap BUN Creatinine Est GFR ( Amer) Est GFR (Non-Af Amer) POC Glucose (mg/dL) 255 H 302 H Random Glucose Calcium Phosphorus Magnesium Total Bilirubin AST ALT Alkaline Phosphatase Total Protein Albumin Globulin Albumin/Globulin Ratio Attending/Attestation - Attestation I have personally seen and examined this patient.: Yes I have fully participated in the care of the patient.: Yes I have reviewed all pertinent clinical information: Yes Notes (Text): 11/14/16 19:00 Patient is still on ventilator, currently unable to extubate, tachycardia noted , not able to control the ventricular rate, started Cardizem drip. Overall prognosis is poor. Patient is not sedated, but the drowsiness noted. Continue the current ventilator. Continue the supportive care, CPAP trial as tolerated and will follow the patient
[2016-11-14] MEDS: Potassium Chloride 20 mEq 100 ML IVPB SCH ×3 (08:15→10:59)
--- NOTE | 2016-11-14 08:36 | RAD ---
PROCEDURE: CHEST RADIOGRAPH, 1 VIEW HISTORY: pt intubated COMPARISON: 11/13/2016 FINDINGS: LUNGS: Lines and tubes in stable position. Biapical pleural thickening with upper lobe granulomatous changes. Moderate venous congestion. Prominent bibasilar airspace opacities with moderate left and small right pleural effusion. PLEURA: As above. CARDIOVASCULAR: Normal. OSSEOUS STRUCTURES: Degenerative changes in the spine and shoulders. VISUALIZED UPPER ABDOMEN: Normal. OTHER FINDINGS: None. IMPRESSION: Lines and tubes in stable position. Biapical pleural thickening with upper lobe granulomatous changes. Moderate venous congestion. Prominent bibasilar airspace opacities with moderate left and small right pleural effusion.
[2016-11-14] MEDS: (Lantus) Insulin Glargine, Recombinant SC SCH ×2 (08:39→19:52)
[2016-11-14] MEDS: diltiaZEM 180 mg/24 Hours CD Cap PO SCH (09:12)
[2016-11-14] MEDS: Docusate-Senna 50 mg-8.6 mg Tab PO SCH ×2 (09:13→17:26)
[2016-11-14] MEDS: Nystatin 100,000 Units/gm Cream(15 gm) TOP SCH ×3 (09:13→17:26)
[2016-11-14] MEDS: MethylPREDNISolone 40 mg Vial IVP SCH ×2 (09:14→22:00)
[2016-11-14] MEDS: Vitamins A & D Oint UD Foilpak TOP SCH ×2 (09:15→17:26)
--- NOTE | 2016-11-14 10:59 | CP.PCM.PN ---
Subjective - Date & Time of Evaluation Date of Evaluation: 11/14/16 Time of Evaluation: 08:30 - Subjective Subjective: Patient seen and examined in the intensive care unit. Status post nasal packing with no further bleeding Sedated on ventilatory support Objective - Vital Signs/Intake and Output Vital Signs (last 24 hours): Temp Pulse Resp BP Pulse Ox 99.3 F 103 H 14 134/74 100 11/14/16 08:00 11/14/16 10:03 11/14/16 10:03 11/14/16 10:03 11/14/16 10:03 Intake and Output: 11/14/16 11/14/16 06:59 18:59 Intake Total 700 200 Output Total 5100 550 Balance -4400 -350 - Medications Medications: Current Medications Acetaminophen (Tylenol 650 Mg Supp) 650 mg DC Q6 PRN PRN Reason: temperature >101 F Last Admin: 11/13/16 20:15 Dose: 650 mg Acetazolamide (Diamox 500 Mg Inj) 250 mg IV Q6 [facility] Stop: 11/14/16 12:01 Last Admin: 11/14/16 05:50 Dose: 250 mg Amiodarone HCl (Cordarone) 200 mg PO TID [facility] Last Admin: 11/14/16 09:13 Dose: 200 mg Diltiazem HCl (Cardizem Cd) 180 mg PO DAILY [facility] Last Admin: 11/14/16 09:12 Dose: 180 mg Propofol (Diprivan) 100 mls @ 3.493 mls/hr IV .Q24H PRN; Protocol; 5 MCG/KG/MIN PRN Reason: TITRATE PER MD ORDER Last Titration: 11/12/16 07:06 Dose: 7 mcg/kg/min Potassium Chloride (Potassium Chloride 20 Meq/100 Ml) 100 mls @ 50 mls/hr IVPB Q2H [facility] Stop: 11/14/16 13:44 Last Admin: 11/14/16 09:21 Dose: 50 mls/hr Insulin Glargine (Lantus) 15 unit SC 0800,2000 [facility] Insulin Human Regular (Novolin R) 0 unit SC Q6 [facility] PRN Reason: Protocol Last Admin: 11/14/16 05:50 Dose: 8 unit Methimazole (Tapazole) 10 mg PO BID [facility] Last Admin: 11/14/16 09:14 Dose: 10 mg Methylprednisolone (Solu-Medrol) 20 mg IVP Q12 [facility] Last Admin: 11/14/16 09:14 Dose: 20 mg Metoprolol Tartrate (Lopressor) 2.5 mg IVP Q6H [facility] Last Admin: 11/14/16 08:35 Dose: 2.5 mg Nystatin (Mycostatin Cream) 0 ea TOP TID [facility] Last Admin: 11/14/16 09:13 Dose: 1 applic Oxymetazoline HCl (Afrin 0.05%) 0 ml NS Q12H [facility] Last Admin: 11/14/16 06:00 Dose: Not Given Pantoprazole Sodium (Protonix Inj) 40 mg IVP DAILY [facility] Last Admin: 11/14/16 09:13 Dose: 40 mg Senna/Docusate Sodium (Senokot S 50 Mg-8.6 Mg) 1 tab PO BID [facility] Last Admin: 11/14/16 09:13 Dose: 1 tab Vitamin A (Vitamin A & D Oint Ud Foilpak) 1 ea TOP BID [facility] Last Admin: 11/14/16 09:15 Dose: 1 ea - Labs Labs: 11/14/16 06:34 11/14/16 06:33 PT 12.0 SECONDS (9.7-12.2) 11/13/16 04:57 INR 1.1 11/13/16 04:57 APTT 38 SECONDS (21-34) H D 11/13/16 04:57 - Head Exam Head Exam: ATRAUMATIC, NORMOCEPHALIC - Eye Exam Eye Exam: Normal appearance - ENT Exam ENT Exam: Mucous Membranes Moist - Neck Exam Neck Exam: Normal Inspection - Respiratory Exam Respiratory Exam: Decreased Breath Sounds - Cardiovascular Exam Cardiovascular Exam: Irregular Rhythm - GI/Abdominal Exam GI & Abdominal Exam: Soft, Normal Bowel Sounds Assessment and Plan (1) Respiratory failure with hypoxia Status: Acute (2) Atrial fibrillation with rapid ventricular response Status: Acute (3) Bilateral lower leg cellulitis Status: Acute (4) Hyperosmolar non-ketotic state in patient with type 2 diabetes mellitus Status: Acute
--- NOTE | 2016-11-14 12:31 | CT ---
PROCEDURE: CT Chest, Abdomen and Pelvis with intravenous contrast HISTORY: r/o PE, assess abdomen for sources of infection COMPARISON: COMPARISON IS MADE TO THE PREVIOUS STUDY DATED 11/06/2016 TECHNIQUE: IV dose administered: 70 mL of Visipaque 320 Radiation dose: Total exam DLP = 1827.92 mGy-cm. FINDINGS: No evidence of filling defect in the pulmonary artery to suggest acute pulmonary embolus. CT CHEST WITH CONTRAST: LUNGS: Complete collapse of the left lower lobe. Partial atelectasis of the right lower lobe. The ET tube is seen at appropriate position. MEDIASTINUM: The thoracic aorta is ectatic and tortuous. The main pulmonary artery is mildly to moderately enlarged. The heart is enlarged. LYMPH NODES: Mildly enlarged precarinal lymph nodes are seen. There is NG tube seen extending to the stomach. PLEURA: Interval increase in the size of the left pleural effusion since the previous exam. Moderate to large right pleural effusion is again seen BONES: Foci of cortical irregularity seen at the right ribs of uncertain etiology. The possibility of osseous metastasis is not totally excluded. OTHER FINDINGS: None. CT ABDOMEN AND PELVIS: LIVER: Mild hepatomegaly is noted. No evidence of mass lesion in the liver. GALLBLADDER AND BILE DUCTS: Unremarkable. PANCREAS: Unremarkable. No gross lesion or ductal dilatation. SPLEEN: Slightly low-attenuation 2.8 centimeter lesion seen at the anterior aspect of the spleen. ADRENALS: Nodular enlargement of the adrenal glands is again noted right larger than left. KIDNEYS AND URETERS: Suspicious for 4.2 x 4.5 centimeter mass lesion at the midpole right kidney. No evidence of hydronephrosis. There is high attenuation exophytic lesion at the midpole left kidney measures 1.7 centimeter. VASCULATURE: Unremarkable. No aortic aneurysm. BOWEL: Unremarkable. No obstruction. No gross mural thickening. APPENDIX: No evidence of appendicitis PERITONEUM: Unremarkable. No free fluid. No free air. LYMPH NODES: Unremarkable. No enlarged lymph nodes. BLADDER: Hemphill catheter is seen in the bladder. The bladder is partially distended contains small amount of air. REPRODUCTIVE: The uterus and adnexa are not visualized. BONES: Heterogeneous density in the osseous structures. OTHER FINDINGS: None. IMPRESSION: Suspicious for mass lesion at the right kidney midpole measures 4.2 x 4.5. If indicated further assessment by ultrasound may be obtained. Moderate enlargement of the adrenal glands seen right more than left contains slightly low-attenuation nodules. Findings could be due to adrenal hyperplasia versus adrenal neoplasm. Interval increase in the size of left pleural effusion since the previous study. Complete collapse of the left lower lobe. 2.8 centimeter slightly low-attenuation lesion at the anterior upper portion of the spleen. Mild anasarca. Suspicious for foci of cortical irregularity and lucency seen in the spine and right ribs. If clinically warranted further assessment by bone scan may be obtained. Cardiomegaly. Preliminary report was submitted by [facility].
--- NOTE | 2016-11-14 13:59 | CT ---
PROCEDURE: CT NECK WITH CONTRAST HISTORY: esophageal bleeding COMPARISON: None TECHNIQUE: CT of the neck with intravenous contrast. Coronal and sagittal reformats generated. Intravenous contrast dose: 35 mL Visipaque 320 Radiation dose: DLP 500.99 mGy-cm FINDINGS: NASOPHARYNX: Fullness and fluid density seen at the nasopharynx. The possibility of soft tissue swelling also is not totally excluded. There is occlusion of the posterior nasal cavity more severe on the left side. SUPRAHYOID NECK: There is endotracheal tube and OG tube seen in place. There is also fluid density surrounding the tubes and filling the oral cavity and hypopharynx. INFRAHYOID NECK: The assessment is limited with the presence of ETT and OG tube. MASS: Limited assessment. GLANDS: Parotid and submandibular glands unremarkable. The thyroid gland is mildly to moderately enlarged. There are multiple low-attenuation nodules. LYMPH NODES: Normal. No lymphadenopathy. CERVICAL SPINE: Moderate degenerative changes. VASCULAR STRUCTURES: Unremarkable. OTHER FINDINGS: None. IMPRESSION: ET tube and OG tube seen in place surrounding with fluid density which filling the nasopharynx and oropharynx. Right jugular catheter in place. No evidence of significant lymphadenopathy. Limited assessment of the nasopharynx ,oropharynx and the hypopharynx with the presence of ET tube and NG tube. Moderately enlarged thyroid gland contains multiple nodules. Preliminary report was submitted by [facility].
--- NOTE | 2016-11-14 16:52 | CT ---
PROCEDURE: CT of the lower extremities with contrast. HISTORY: r/o osteomyelitis COMPARISON: No prior similar study available for comparison. TECHNIQUE: Axial and reformatted coronal and sagittal CT images of the lower extremities were obtained from above the knee to the toes after IV contrast administration. FINDINGS: There is diffuse soft tissue swelling and subcutaneous stranding in the legs more prominent at the proximal and midportion and around the knees. There is also skin thickening which is more prominent medially. No evidence of discrete fluid collection. No evidence of osteomyelitis. Moderate osteoarthritic degenerative changes at the knee joints. [id number] arthritic degenerative changes at the ankles. IMPRESSION: Soft tissue swelling and stranding associated with skin thickening suggestive of cellulitis. No evidence of discrete abscess formation. Moderate to severe osteoarthritic changes at the knees and [id number] degenerative changes at the ankles. Preliminary report was submitted by [facility].
[2016-11-14] MEDS: Acetaminophen 650mg/20.3ml solution UD GT PRN (20:29)
--- NOTE | 2016-11-14 22:38 | CP.PCM.PN ---
Subjective - Date & Time of Evaluation Date of Evaluation: 11/14/16 Time of Evaluation: 13:34 - Subjective Subjective: Patient seen at bedside in no acute distress. Patient intubated with vent settings of FiO2 50%, RR 14, PEEP 5, TV 500% and is saturating well at 100%. GCS 10T (E4 VT M6). Patient's last dose of propofol was given 11/12. Patient opens eyes spontaneously and moves extremities on her own. CPAP trial was done after morning rounds. Patient was tachycardic prior to morning rounds, but is currently rate controlled. Patient is stable. Patient spiked a fever overnight and is currently having a low grade fever (T max 101.1, T current 99.3). ROS could not be obtained because patient is intubated at time of evaluation. Over the weekend, NGT removed and replaced with OGT with Afrin spray in nose bilaterally. Right sided nasal packing inserted where NGT had been. Objective - Vital Signs/Intake and Output Vital Signs (last 24 hours): Temp Pulse Resp BP Pulse Ox 101 F H 146 H 17 137/77 100 11/14/16 20:00 11/14/16 20:00 11/14/16 20:00 11/14/16 19:53 11/14/16 20:00 Intake and Output: 11/14/16 11/15/16 18:59 06:59 Intake Total 750 235 Output Total 1680 175 Balance -930 60 - Medications Medications: Current Medications Acetaminophen (Tylenol 650mg/20.3ml Solution Ud) 650 mg GT Q6 PRN PRN Reason: Fever >100.4 F Last Admin: 11/14/16 20:29 Dose: 650 mg Amiodarone HCl (Cordarone) 200 mg PO TID [facility] Last Admin: 11/14/16 17:25 Dose: 200 mg Propofol (Diprivan) 100 mls @ 3.493 mls/hr IV .Q24H PRN; Protocol; 5 MCG/KG/MIN PRN Reason: TITRATE PER MD ORDER Last Titration: 11/14/16 07:00 Dose: 0 mcg/kg/min Diltiazem HCl 125 mg/ Sodium (Chloride) 125 mls @ 5 mls/hr IV .Q24H [facility]; 5 MG/ HR PRN Reason: Protocol Last Admin: 11/14/16 19:49 Dose: 5 mls/hr Insulin Glargine (Lantus) 15 unit SC 0800,2000 [facility] Last Admin: 11/14/16 19:52 Dose: 15 units Insulin Human Regular (Novolin R) 0 unit SC Q6 [facility] PRN Reason: Protocol Last Admin: 11/14/16 18:08 Dose: 8 unit Methimazole (Tapazole) 10 mg PO BID [facility] Last Admin: 11/14/16 17:26 Dose: 10 mg Methylprednisolone (Solu-Medrol) 20 mg IVP Q12 [facility] Last Admin: 11/14/16 09:14 Dose: 20 mg Metoprolol Tartrate (Lopressor) 2.5 mg IVP Q6H [facility] Last Admin: 11/14/16 19:49 Dose: 2.5 mg Nystatin (Mycostatin Cream) 0 ea TOP TID [facility] Last Admin: 11/14/16 17:26 Dose: 1 applic Oxymetazoline HCl (Afrin 0.05%) 0 ml NS Q12H [facility] Last Admin: 11/14/16 17:22 Dose: Not Given Pantoprazole Sodium (Protonix Inj) 40 mg IVP DAILY [facility] Last Admin: 11/14/16 09:13 Dose: 40 mg Senna/Docusate Sodium (Senokot S 50 Mg-8.6 Mg) 1 tab PO BID [facility] Last Admin: 11/14/16 17:26 Dose: 1 tab Vitamin A (Vitamin A & D Oint Ud Foilpak) 1 ea TOP BID [facility] Last Admin: 11/14/16 17:26 Dose: 1 ea - Labs Labs: 11/14/16 06:34 11/14/16 06:33 PT 12.0 SECONDS (9.7-12.2) 11/13/16 04:57 INR 1.1 11/13/16 04:57 APTT 38 SECONDS (21-34) H D 11/13/16 04:57 - Constitutional Appears: No Acute Distress, Chronically Ill - Head Exam Head Exam: ATRAUMATIC, NORMAL INSPECTION, NORMOCEPHALIC - Eye Exam Eye Exam: EOMI, Normal appearance, PERRL Pupil Exam: NORMAL ACCOMODATION, PERRL - ENT Exam ENT Exam: Mucous Membranes Moist, Normal Exam - Respiratory Exam Respiratory Exam: Decreased Breath Sounds, Rales, Rhonchi - Cardiovascular Exam Cardiovascular Exam: REGULAR RHYTHM, +S1, +S2. absent: Murmur - GI/Abdominal Exam GI & Abdominal Exam: Soft, Normal Bowel Sounds. absent: Tenderness - Rectal Exam Rectal Exam: Deferred - Extremities Exam Extremities Exam: Pedal Edema - Neurological Exam Neurological Exam: Alert, Awake - Skin Skin Exam: Erythema, Pallor, Rash Assessment and Plan (1) Atrial fibrillation with rapid ventricular response Status: Acute (2) Bilateral lower leg cellulitis Status: Acute (3) CHF (congestive heart failure) Status: Acute (4) DKA (diabetic ketoacidoses) Status: Resolved (5) Diabetes Status: Chronic (6) HTN (hypertension) Status: Chronic
[2016-11-15] MEDS: (Novolin R) Insulin Human Regular 100 units/ml vial SC SCH ×5 (00:48→23:59)
[2016-11-15] MEDS: Metoprolol 1 mg/ml Inj IVP SCH ×4 (02:17→20:29)
[2016-11-15 05:00] LABS: ABG ALLEN TEST POS; ABG MECHANICAL RATE 14; ARTERIAL BLOOD HGB O2 SAT 94.7 % (95.0-98.0); ATERIAL BLOOD GAS PEEP 5; CARBOXYHEMOGLOBIN 2.3 % (0.5-1.5); DRAW SITE RR; HHB 2.1 % (0.0-5.0); METHEMOGLOBIN 0.9 % (0.0-3.0)
[2016-11-15] MEDS: Oxymetazoline 0.05% Nasal Spray (30 ml) NS SCH (05:37)
[2016-11-15 06:50] LABS: CHLORIDE 107 mmol/L (98-107); POTASSIUM 3.1 mmol/L (3.6-5.2); SODIUM 152 mmol/L (132-148)
[2016-11-15 06:52] LABS: BILIRUBIN,TOTAL 1.1 mg/dL (0.2-1.3); GFR AFRICAN-AMERICAN > 60
[2016-11-15 06:53] LABS: ALKALINE PHOSPHATASE 77 U/L (38-126); ALT/SGPT 37 U/L (9-52); AST/SGOT 20 U/L (14-36); BLOOD UREA NITROGEN 39 mg/dL (7-17); CARBON DIOXIDE 35 mmol/L (22-30); GLUCOSE,RANDOM 229 mg/dL (65-105); PHOSPHOROUS 3.1 mg/dL (2.5-4.5); TOTAL PROTEIN 5.5 g/dL (6.3-8.3)
[2016-11-15 06:54] LABS: CALCIUM 9.1 mg/dl (8.6-10.4); MAGNESIUM 2.3 mg/dL (1.6-2.3)
[2016-11-15 07:14] LABS: BASO # 0.1 K/uL (0.0-0.2); BASO % 0.3 % (0.0-2.0); HEMATOCRIT 36.5 % (34.0-47.0); LYMPH # 0.9 K/uL (1.0-4.3); LYMPH % 5.1 % (20.0-40.0); MEAN CELL VOLUME 91.5 fL (81.0-99.0); MEAN CORPUSCULAR HEMOGLOBIN 28.6 pg (27.0-31.0); MEAN CORPUSCULAR HGB CONC 31.2 g/dL (33.0-37.0); MEAN PLATELET VOLUME 10.4 fL (7.2-11.7); MONO # 0.7 K/uL (0.0-0.8); MONO % 4.1 % (0.0-10.0); PLATELET COUNT 172 K/uL (130-400); RED CELL DISTRIBUTION WIDTH 14.7 % (11.5-14.5); WHITE BLOOD COUNT 17.2 K/uL (4.8-10.8)
[2016-11-15] MEDS: (Lantus) Insulin Glargine, Recombinant SC SCH ×2 (08:32→20:28)
--- NOTE | 2016-11-15 08:43 | RAD ---
HISTORY: intubated COMPARISON: 11/14/2016 FINDINGS: LUNGS: Lines and tubes stable position. Persistent moderate left and small right pleural effusion. Moderate to severe venous congestion. Bibasilar airspace opacities. PLEURA: As above. CARDIOVASCULAR: Calcification at the aortic knob. Mild cardiomegaly. OSSEOUS STRUCTURES: No significant abnormalities. VISUALIZED UPPER ABDOMEN: Normal. OTHER FINDINGS: None. IMPRESSION: No significant interval change.
[2016-11-15 09:02] LABS: NEUTROPHIL 85 % (50-75); TOTAL CELLS COUNTED 100
[2016-11-15] MEDS: MethylPREDNISolone 40 mg Vial IVP SCH (10:09)
[2016-11-15] MEDS: Nystatin 100,000 Units/gm Cream(15 gm) TOP SCH ×3 (10:10→18:24)
[2016-11-15] MEDS: Vitamins A & D Oint UD Foilpak TOP SCH ×2 (10:10→18:23)
[2016-11-15] MEDS ORDERED: Potassium Chloride 20 mEq/15 ml LIQ UD PO ONE ×2 (10:30→13:00)
[2016-11-15] MEDS: Docusate-Senna 50 mg-8.6 mg Tab PO SCH ×2 (10:33→18:20)
--- NOTE | 2016-11-15 11:06 | CP.PCM.PN ---
Subjective - Date & Time of Evaluation Date of Evaluation: 11/15/16 Time of Evaluation: 11:03 - Subjective Subjective: no epistaxis. Pack removed. patient on vent and can not give history. Pack removed. head: atraumatic face: can not assess const: well fed com: can not assess external nose and ears: no masses, no lesions nose: deviated septum, no bleeding oc/op: limited exam due to et tube and og tube. NO masses, no lesions, no bloody PND lips/gums: limited exam due to et tube and og tube. neck: supple thyroid: no goiter lymph: no lad a/p: epistaxis resolved deviated septum Objective - Vital Signs/Intake and Output Vital Signs (last 24 hours): Temp Pulse Resp BP Pulse Ox 98.4 F 102 H 16 133/60 99 11/15/16 04:00 11/15/16 09:00 11/15/16 09:00 11/15/16 08:01 11/15/16 09:00 Intake and Output: 11/15/16 11/15/16 06:59 18:59 Intake Total 1255 165 Output Total 1170 165 Balance 85 0 - Medications Medications: Current Medications Acetaminophen (Tylenol 650mg/20.3ml Solution Ud) 650 mg GT Q6 PRN PRN Reason: Fever >100.4 F Last Admin: 11/14/16 20:29 Dose: 650 mg Amiodarone HCl (Cordarone) 200 mg PO TID [facility] Last Admin: 11/15/16 10:09 Dose: 200 mg Propofol (Diprivan) 100 mls @ 3.493 mls/hr IV .Q24H PRN; Protocol; 5 MCG/KG/MIN PRN Reason: TITRATE PER MD ORDER Last Titration: 11/14/16 07:00 Dose: 0 mcg/kg/min Diltiazem HCl 125 mg/ Sodium (Chloride) 125 mls @ 5 mls/hr IV .Q24H [facility]; 5 MG/ HR PRN Reason: Protocol Last Admin: 11/14/16 19:49 Dose: 5 mls/hr Insulin Glargine (Lantus) 15 unit SC 0800,2000 [facility] Last Admin: 11/15/16 08:32 Dose: 15 units Insulin Human Regular (Novolin R) 0 unit SC Q6 [facility] PRN Reason: Protocol Last Admin: 11/15/16 05:56 Dose: 6 unit Methimazole (Tapazole) 10 mg PO BID [facility] Last Admin: 11/15/16 10:09 Dose: 10 mg Methylprednisolone (Solu-Medrol) 20 mg IVP Q12 [facility] Last Admin: 11/15/16 10:09 Dose: 20 mg Metoprolol Tartrate (Lopressor) 2.5 mg IVP Q6H [facility] Last Admin: 11/15/16 08:32 Dose: 2.5 mg Nystatin (Mycostatin Cream) 0 ea TOP TID [facility] Last Admin: 11/15/16 10:10 Dose: 1 applic Oxymetazoline HCl (Afrin 0.05%) 0 ml NS Q12H [facility] Last Admin: 11/15/16 05:37 Dose: Not Given Pantoprazole Sodium (Protonix Inj) 40 mg IVP DAILY [facility] Last Admin: 11/15/16 10:09 Dose: 40 mg Potassium Chloride (Potassium Chloride Oral Soln) 20 meq PO ONCE ONE Stop: 11/15/16 13:01 Senna/Docusate Sodium (Senokot S 50 Mg-8.6 Mg) 1 tab PO BID [facility] Last Admin: 11/15/16 10:33 Dose: Not Given Vitamin A (Vitamin A & D Oint Ud Foilpak) 1 ea TOP BID [facility] Last Admin: 11/15/16 10:10 Dose: 1 ea - Labs Labs: 11/15/16 06:30 11/15/16 06:30 PT 12.0 SECONDS (9.7-12.2) 11/13/16 04:57 INR 1.1 11/13/16 04:57 APTT 38 SECONDS (21-34) H D 11/13/16 04:57
--- NOTE | 2016-11-15 12:32 | CP.PCM.PN ---
Subjective - Date & Time of Evaluation Date of Evaluation: 11/15/16 Time of Evaluation: 09:30 - Subjective Subjective: patient seen and examined in the intensive care unit. Remains intubated on ventilatory support Sedated on Diprivan Nasal packing removed and no more epistaxis CAT scan of the chest noted Being treated for pneumonia Objective - Vital Signs/Intake and Output Vital Signs (last 24 hours): Temp Pulse Resp BP Pulse Ox 98.4 F 102 H 16 133/60 99 11/15/16 04:00 11/15/16 09:00 11/15/16 09:00 11/15/16 08:01 11/15/16 09:00 Intake and Output: 11/15/16 11/15/16 06:59 18:59 Intake Total 1255 165 Output Total 1170 165 Balance 85 0 - Medications Medications: Current Medications Acetaminophen (Tylenol 650mg/20.3ml Solution Ud) 650 mg GT Q6 PRN PRN Reason: Fever >100.4 F Last Admin: 11/14/16 20:29 Dose: 650 mg Acetazolamide (Diamox 500 Mg Inj) 500 mg IV Q8H [facility] Stop: 11/16/16 03:46 Amiodarone HCl (Cordarone) 200 mg PO Q8H [facility] Diltiazem HCl (Cardizem) 60 mg PO Q6 [facility] Propofol (Diprivan) 100 mls @ 3.493 mls/hr IV .Q24H PRN; Protocol; 5 MCG/KG/MIN PRN Reason: TITRATE PER MD ORDER Last Titration: 11/14/16 07:00 Dose: 0 mcg/kg/min Diltiazem HCl 125 mg/ Sodium (Chloride) 125 mls @ 5 mls/hr IV .Q24H [facility]; 5 MG/ HR PRN Reason: Protocol Last Admin: 11/14/16 19:49 Dose: 5 mls/hr Imipenem/Cilastatin Sodium 1, (000 mg/ Sodium Chloride) 250 mls @ 250 mls/hr IVPB Q8H [facility] Vancomycin HCl 1,500 mg/ (Sodium Chloride) 500 mls @ 250 mls/hr IVPB Q12H [facility] Insulin Glargine (Lantus) 15 unit SC 0800,2000 [facility] Last Admin: 11/15/16 08:32 Dose: 15 units Insulin Human Regular (Novolin R) 0 unit SC Q6 [facility] PRN Reason: Protocol Last Admin: 11/15/16 05:56 Dose: 6 unit Methimazole (Tapazole) 10 mg PO BID [facility] Last Admin: 11/15/16 10:09 Dose: 10 mg Methylprednisolone (Solu-Medrol) 20 mg IVP Q12 [facility] Last Admin: 11/15/16 10:09 Dose: 20 mg Metoprolol Tartrate (Lopressor) 2.5 mg IVP Q6H [facility] Last Admin: 11/15/16 08:32 Dose: 2.5 mg Nystatin (Mycostatin Cream) 0 ea TOP TID [facility] Last Admin: 11/15/16 10:10 Dose: 1 applic Pantoprazole Sodium (Protonix Inj) 40 mg IVP DAILY [facility] Last Admin: 11/15/16 10:09 Dose: 40 mg Potassium Chloride (Potassium Chloride Oral Soln) 20 meq PO ONCE ONE Stop: 11/15/16 13:01 Senna/Docusate Sodium (Senokot S 50 Mg-8.6 Mg) 1 tab PO BID [facility] Last Admin: 11/15/16 10:33 Dose: Not Given Vitamin A (Vitamin A & D Oint Ud Foilpak) 1 ea TOP BID [facility] Last Admin: 11/15/16 10:10 Dose: 1 ea - Labs Labs: 11/15/16 06:30 11/15/16 06:30 PT 12.0 SECONDS (9.7-12.2) 11/13/16 04:57 INR 1.1 11/13/16 04:57 APTT 38 SECONDS (21-34) H D 11/13/16 04:57 - Head Exam Head Exam: ATRAUMATIC, NORMOCEPHALIC - Neck Exam Neck Exam: Normal Inspection - Respiratory Exam Respiratory Exam: Decreased Breath Sounds - Extremities Exam Extremities Exam: Pedal Edema - Neurological Exam Neurological Exam: Altered Assessment and Plan (1) Respiratory failure with hypoxia Assessment & Plan: Continue ventilatory support Sedation vacation and CPAP trial Continue antibiotics per ID Consider left thoracentesis Fiberoptic bronchoscopy to rule out left lung collapse Continue feeding and amiodarone Status: Acute (2) Atrial fibrillation with rapid ventricular response Status: Acute (3) Bilateral lower leg cellulitis Status: Acute (4) Hyperosmolar non-ketotic state in patient with type 2 diabetes mellitus Status: Acute
[2016-11-15] MEDS ORDERED: EPINEPHrine 1 mg/ml (1:1000) Inj ONE (12:47)
[2016-11-15] MEDS ORDERED: Sodium Chloride 0.9% 0 ML IV ONE (12:47)
[2016-11-15] MEDS ORDERED: Lidocaine 2% Inj (20ml) ONE (12:59)
[2016-11-15] MEDS: Potassium Chloride 20 mEq 100 ML IVPB SCH ×2 (13:27→16:19)
[2016-11-15] MEDS ORDERED: Rocuronium 10 mg/ml (5 ml) IV ONE (13:50)
[2016-11-15] MEDS ORDERED: Midazolam 2 MG/2 ML VIAL IVP ONE (13:50)
[2016-11-15] MEDS ORDERED: Propofol 10 mg/ml Inj (20 ML) IV ONE (13:50)
[2016-11-15 14:25] LABS: URINE BILIRUBIN NEGATIVE (NEGATIVE); URINE BLOOD NEGATIVE (NEGATIVE); URINE COLOR Yellow (YELLOW); URINE GLUCOSE (UA) 3+ mg/dL (Normal); URINE KETONE NEGATIVE (NEGATIVE); URINE LEUKOCYTE ESTERASE NEG Leu/uL (Negative); URINE PROTEIN NEGATIVE (NEGATIVE)
[2016-11-15 14:29] LABS: WBC URINE 3 /hpf (0-5)
--- NOTE | 2016-11-15 14:55 | CP.PCM.CON ---
History of Present Illness - History of Present Illness History of Present Illness: Surgery: Dr. Avalos CC: pleural effusions HPI: Patient is a 61 y/o female currently intubated in the ICU 2/2 respiratory failure on 11/08/16. History obtained from EMR. Patient was brought to ER on for AMS and feeling weak found to be in Afib w/ RVR as well as DKA. Patient was admitted and medically treated in the ICU. Patient was requiring bipap for respiratory distress and subsequently got intubated on 11/08 for failure. Patient had underwent CT scan on the which showed bilateral pleural effusions, adenopathy, and atelectasis (see full report). Repeat Ct scan was performed on 11/13 which showed similar findings w/ in increase in size of pleural effusions. Patient was also noted to have a leukocytosis yesteday so antibiotics subsequently started. No procedures to drain pleural effusions has been attempted up to date. Patient to undergo bedside bronch with ICU attending today. PMH: DMII, A fib, HTN, Hyperthyroid, Depression, Anxiety PSH: unknown-documented hx of ovarian tumor removed Social: documented hx of tobacco use Review of Systems - Review of Systems Systems not reviewed;Unavailable: Intubated Past Patient History - Tetanus Immunizations Tetanus Immunization: Unknown - Past Medical History & Family History Past Medical History?: Yes - Past Social History Smoking Status: Current Some Days Smoker - CARDIAC Hx Hypertension: Yes Hx Peripheral Edema: Yes - PULMONARY Hx Bronchitis: Yes - NEUROLOGICAL Hx Neurological Disorder: No - HEENT Hx HEENT Problems: No Other/Comment: WEARS READING GLASSES. - RENAL Hx Chronic Kidney Disease: No - ENDOCRINE/METABOLIC Hx Hyperthyroidism: Yes - HEMATOLOGICAL/ONCOLOGICAL Hx Blood Disorders: Yes Hx Blood Transfusions: Yes Hx Blood Transfusion Reaction: No - INTEGUMENTARY Hx Cellulitis: Yes - MUSCULOSKELETAL/RHEUMATOLOGICAL Hx Arthritis: Yes Hx Falls: Yes - GASTROINTESTINAL Hx Gastrointestinal Disorders: No - GENITOURINARY/GYNECOLOGICAL Hx Genitourinary Disorders: No - PSYCHIATRIC Hx Anxiety: Yes Hx Depression: Yes Hx Substance Use: No - SURGICAL HISTORY Hx Surgeries: Yes Other/Comment: TUMOR FROM OVARIES REMOVED - ANESTHESIA Hx Anesthesia: Yes Hx Anesthesia Reactions: No Hx Malignant Hyperthermia: No Meds Allergies/Adverse Reactions: Allergies Allergy/AdvReac Type Severity Reaction Status Date / Time No Known Allergies Allergy Verified 11/04/16 11:37 - Medications Medications: Current Medications Acetaminophen (Tylenol 650mg/20.3ml Solution Ud) 650 mg GT Q6 PRN PRN Reason: Fever >100.4 F Last Admin: 11/14/16 20:29 Dose: 650 mg Acetazolamide (Diamox 500 Mg Inj) 500 mg IV Q8H [facility] Stop: 11/16/16 07:01 Amiodarone HCl (Cordarone) 200 mg PO Q8H [facility] Diltiazem HCl (Cardizem) 60 mg PO Q6 [facility] Propofol (Diprivan) 100 mls @ 3.493 mls/hr IV .Q24H PRN; Protocol; 5 MCG/KG/MIN PRN Reason: TITRATE PER MD ORDER Last Titration: 11/14/16 07:00 Dose: 0 mcg/kg/min Diltiazem HCl 125 mg/ Sodium (Chloride) 125 mls @ 5 mls/hr IV .Q24H [facility]; 5 MG/ HR PRN Reason: Protocol Last Admin: 11/14/16 19:49 Dose: 5 mls/hr Imipenem/Cilastatin Sodium 1, (000 mg/ Sodium Chloride) 250 mls @ 250 mls/hr IVPB Q8H [facility] Last Admin: 11/15/16 13:16 Dose: 250 mls/hr Vancomycin HCl 1,500 mg/ (Sodium Chloride) 500 mls @ 250 mls/hr IVPB Q12H [facility] Potassium Chloride (Potassium Chloride 20 Meq/100 Ml) 100 mls @ 50 mls/hr IVPB Q2H [facility] Stop: 11/15/16 17:59 Last Admin: 11/15/16 13:27 Dose: 50 mls/hr Insulin Glargine (Lantus) 15 unit SC 0800,1999 [facility] Last Admin: 11/15/16 08:32 Dose: 15 units Insulin Human Regular (Novolin R) 0 unit SC Q6 [facility] PRN Reason: Protocol Last Admin: 11/15/16 13:16 Dose: 6 unit Methimazole (Tapazole) 10 mg PO BID [facility] Last Admin: 11/15/16 10:09 Dose: 10 mg Methylprednisolone (Solu-Medrol) 20 mg IVP Q12 [facility] Last Admin: 11/15/16 10:09 Dose: 20 mg Metoprolol Tartrate (Lopressor) 2.5 mg IVP Q6H [facility] Last Admin: 11/15/16 08:32 Dose: 2.5 mg Nystatin (Mycostatin Cream) 0 ea TOP TID [facility] Last Admin: 11/15/16 10:10 Dose: 1 applic Pantoprazole Sodium (Protonix Inj) 40 mg IVP DAILY [facility] Last Admin: 11/15/16 10:09 Dose: 40 mg Senna/Docusate Sodium (Senokot S 50 Mg-8.6 Mg) 1 tab PO BID [facility] Last Admin: 11/15/16 10:33 Dose: Not Given Vitamin A (Vitamin A & D Oint Ud Foilpak) 1 ea TOP BID [facility] Last Admin: 11/15/16 10:10 Dose: 1 ea Physical Exam - Constitutional Appears: Non-toxic, Chronically Ill Additional comments: intubated and sedated - Head Exam Head Exam: ATRAUMATIC, NORMOCEPHALIC Additional comments: ET and OGT in place - ENT Exam ENT Exam: Mucous Membranes Dry - Respiratory Exam Respiratory Exam: absent: Respiratory Distress Additional comments: on mechanical ventilation - Cardiovascular Exam Cardiovascular Exam: Tachycardia, Irregular Rhythm - GI/Abdominal Exam GI & Abdominal Exam: Soft. absent: Distended, Tenderness - Extremities Exam Extremities exam: Positive for: pedal edema. Negative for: calf tenderness - Neurological Exam Additional comments: sedated Results - Vital Signs Recent Vital Signs: Last Vital Signs Temp 98.4 F 11/15/16 04:00 Pulse 102 H 11/15/16 09:00 Resp 16 11/15/16 09:00 BP 133/60 11/15/16 08:01 Pulse Ox 99 11/15/16 09:00 - Labs Result Diagrams: 11/15/16 06:30 11/15/16 06:30 Labs: Laboratory Results - last 24 hr 11/10/16 11/13/16 11/14/16 15:30 04:57 17:48 WBC RBC Hgb Hct MCV MCH MCHC RDW Plt Count MPV Neut % (Auto) Lymph % (Auto) [place] % (Auto) Eos % (Auto) Baso % (Auto) Neut # Lymph # [place] # Eos # Baso # Neutrophils % (Manual) Band Neutrophils % Lymphocytes % (Manual) Monocytes % (Manual) Platelet Estimate RBC Morphology Puncture Site pCO2 pO2 HCO3 ABG pH ABG Total CO2 ABG O2 Saturation ABG Base Excess ABG Hemoglobin ABG Carboxyhemoglobin POC ABG HHb (Measured) ABG Methemoglobin Chaz Test A-a O2 Difference Respiratory Index Hgb O2 Saturation Mechanical Rate FiO2 Tidal Volume PEEP Sodium Potassium Chloride Carbon Dioxide Anion Gap BUN Creatinine Est GFR ( Amer) Est GFR (Non-Af Amer) POC Glucose (mg/dL) 302 H Random Glucose Calcium Phosphorus Magnesium Total Bilirubin AST ALT Alkaline Phosphatase Total Protein Albumin Globulin Albumin/Globulin Ratio Urine Color Urine Clarity Urine pH Ur Specific [place] Urine Protein Urine Glucose (UA) Urine Ketones Urine Blood Urine Nitrate Urine Bilirubin Urine Urobilinogen Ur Leukocyte Esterase Urine WBC (Auto) Urine Yeast (Budding) Fluid Albumin 0.6 Thyroperoxidase Ab <1 Thyroglobulin Antibody <1 11/14/16 11/15/16 11/15/16 23:42 04:30 05:38 WBC RBC Hgb Hct MCV MCH MCHC RDW Plt Count MPV Neut % (Auto) Lymph % (Auto) [place] % (Auto) Eos % (Auto) Baso % (Auto) Neut # Lymph # [place] # Eos # Baso # Neutrophils % (Manual) Band Neutrophils % Lymphocytes % (Manual) Monocytes % (Manual) Platelet Estimate RBC Morphology Puncture Site Rr pCO2 61 H pO2 76 L HCO3 31.6 H ABG pH 7.38 ABG Total CO2 38.0 H ABG O2 Saturation 97.8 ABG Base Excess 8.7 H ABG Hemoglobin 13.7 ABG Carboxyhemoglobin 2.3 H POC ABG HHb (Measured) 2.1 ABG Methemoglobin 0.9 Chaz Test Pos A-a O2 Difference 204.0 Respiratory Index 2.7 Hgb O2 Saturation 94.7 L Mechanical Rate 14 FiO2 50.0 Tidal Volume 500 PEEP 5 Sodium Potassium Chloride Carbon Dioxide Anion Gap BUN Creatinine Est GFR ( Amer) Est GFR (Non-Af Amer) POC Glucose (mg/dL) 282 H < 20 L* Random Glucose Calcium Phosphorus Magnesium Total Bilirubin AST ALT Alkaline Phosphatase Total Protein Albumin Globulin Albumin/Globulin Ratio Urine Color Urine Clarity Urine pH Ur Specific [place] Urine Protein Urine Glucose (UA) Urine Ketones Urine Blood Urine Nitrate Urine Bilirubin Urine Urobilinogen Ur Leukocyte Esterase Urine WBC (Auto) Urine Yeast (Budding) Fluid Albumin Thyroperoxidase Ab Thyroglobulin Antibody 11/15/16 11/15/16 11/15/16 05:41 06:30 12:49 WBC 17.2 H D RBC 3.99 Hgb 11.4 Hct 36.5 MCV 91.5 MCH 28.6 MCHC 31.2 L RDW 14.7 H Plt Count 172 MPV 10.4 Neut % (Auto) 90.5 H Lymph % (Auto) 5.1 L [place] % (Auto) 4.1 Eos % (Auto) 0.0 Baso % (Auto) 0.3 Neut # 15.5 H Lymph # 0.9 L [place] # 0.7 Eos # 0.0 Baso # 0.1 Neutrophils % (Manual) 85 H Band Neutrophils % 3 H Lymphocytes % (Manual) 10 L Monocytes % (Manual) 2 Platelet Estimate Normal RBC Morphology Normal Puncture Site pCO2 pO2 HCO3 ABG pH ABG Total CO2 ABG O2 Saturation ABG Base Excess ABG Hemoglobin ABG Carboxyhemoglobin POC ABG HHb (Measured) ABG Methemoglobin Chaz Test A-a O2 Difference Respiratory Index Hgb O2 Saturation Mechanical Rate FiO2 Tidal Volume PEEP Sodium 152 H Potassium 3.1 L Chloride 107 Carbon Dioxide 35 H Anion Gap 13 BUN 39 H Creatinine 0.7 Est GFR ( Amer) > 60 Est GFR (Non-Af Amer) > 60 POC Glucose (mg/dL) 267 H 288 H Random Glucose 229 H Calcium 9.1 Phosphorus 3.1 Magnesium 2.3 Total Bilirubin 1.1 AST 20 ALT 37 Alkaline Phosphatase 77 Total Protein 5.5 L Albumin 2.8 L Globulin 2.8 Albumin/Globulin Ratio 1.0 Urine Color Urine Clarity Urine pH Ur Specific [place] Urine Protein Urine Glucose (UA) Urine Ketones Urine Blood Urine Nitrate Urine Bilirubin Urine Urobilinogen Ur Leukocyte Esterase Urine WBC (Auto) Urine Yeast (Budding) Fluid Albumin Thyroperoxidase Ab Thyroglobulin Antibody 11/15/16 13:25 WBC RBC Hgb Hct MCV MCH MCHC RDW Plt Count MPV Neut % (Auto) Lymph % (Auto) [place] % (Auto) Eos % (Auto) Baso % (Auto) Neut # Lymph # [place] # Eos # Baso # Neutrophils % (Manual) Band Neutrophils % Lymphocytes % (Manual) Monocytes % (Manual) Platelet Estimate RBC Morphology Puncture Site pCO2 pO2 HCO3 ABG pH ABG Total CO2 ABG O2 Saturation ABG Base Excess ABG Hemoglobin ABG Carboxyhemoglobin POC ABG HHb (Measured) ABG Methemoglobin Chaz Test A-a O2 Difference Respiratory Index Hgb O2 Saturation Mechanical Rate FiO2 Tidal Volume PEEP Sodium Potassium Chloride Carbon Dioxide Anion Gap BUN Creatinine Est GFR ( Amer) Est GFR (Non-Af Amer) POC Glucose (mg/dL) Random Glucose Calcium Phosphorus Magnesium Total Bilirubin AST ALT Alkaline Phosphatase Total Protein Albumin Globulin Albumin/Globulin Ratio Urine Color Yellow Urine Clarity Hazy Urine pH 6.0 Ur Specific [place] 1.028 Urine Protein Negative Urine Glucose (UA) 3+ H Urine Ketones Negative Urine Blood Negative Urine Nitrate Negative Urine Bilirubin Negative Urine Urobilinogen 4.0 H Ur Leukocyte Esterase Neg Urine WBC (Auto) 3 Urine Yeast (Budding) Many H Fluid Albumin Thyroperoxidase Ab Thyroglobulin Antibody Assessment & Plan - Assessment and Plan (Free Text) Assessment: 61 y/o female w/ respiratory failure, intubated on 11/08, w/ bilateral pleural effusions Plan: -f/u bronch results and sputum studies -cont abx at this time for underlying pna -chest PT -will review CT scans further to determine need for surgical intervention -medical management per primary -d/w Dr. Robbie Bruno PGY1 - Date & Time Date: 11/15/16 Time: 15:08
--- NOTE | 2016-11-15 15:42 | CP.CCUPN ---
Addendum entered and electronically signed by Eloina Allen DO 11/15/16 15 :52: Pulm: Considerations for thoracentesis vs VATS procedure due to suspected loculations noted on imaging. Surgery will review CT scans to determine need for surgical intervention. F/U Surg and Pulm reccs. Original Note: <Eloina Allen - Last Filed: 11/15/16 15:39> CCU Subjective - Physician Review Subjective (Free Text): 11/08/16 13:06 Pt seen in mild distress requiring intubation. Two large pieces of dried mucus were extracted from the patient's throat obstructing vocal cords. Patient intubated. TLC line was also placed to ensure better IV access. 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 An ROS could not be obtained at this time because patient is intubated and sedated. 11/09/16 13:15 Patient seen at beside intubated and sedated. GCS 8T (FiO2 60 PEEP 5 VT 500 RR 16). No acute events overnight per nursing. A fib is rate controlled. Patient is stable. New vent settings after rounds PRVC (FiO2 60, PEEP 5, RR 12 VT 500). ROS couldn't be obtained because patient is intubated and sedated. 11/10/16 16:50 Pt seen and examined in no acute distress. Patient spiked a fever during overnight shift which initially responded to Tylenol and later returned during the morning shift. Patient administered tylenol and cooling blankets. Patient underwent thoracentesis for pleural effusion. Tolerated procedure well. Patient is rate controlled. ROS couldn't be obtained because patient is intubated and sedated. 11/11/16 8:34 Pt seen and examined in no acute distress. Patient seen at beside intubated and sedated. (FiO2 50 PEEP 5 RR 14 VT 500). Patient is awake, but does not follow commands. Patient has low grade fever this morning (T max 100.2, T 99.0-100.2). A fib is rate controlled. Patient is stable. ROS couldn't be obtained because patient was intubated and sedated at the time of evaluation 11/14/16 15:35 Patient seen at bedside in no acute distress. Patient intubated with vent settings of FiO2 50%, RR 14, PEEP 5, TV 500% and is saturating well at 100%. GCS 10T (E4 VT M6). Patient's last dose of propofol was given 11/12. Patient opens eyes spontaneously and moves extremities on her own. CPAP trial was done after morning rounds. Patient was tachycardic prior to morning rounds, but is currently rate controlled. Patient is stable. Patient spiked a fever overnight and is currently having a low grade fever (T max 101.1, T current 99.3). ROS could not be obtained because patient is intubated at time of evaluation. Over the weekend, NGT removed and replaced with OGT with Afrin spray in nose bilaterally. Right sided nasal packing inserted where NGT had been. 11/15/16 15:39 Patient seen at bedside in no acute distress. Patient intubated with vent settings of FiO2 50%, RR 14, PEEP 5, TV 500% and is saturating well at 100%. GCS 10T (E4 VT M6). Patient's last dose of propofol was given 11/12. Patient opens eyes spontaneously and moves extremities on her own. Patient is stable but still lethargic. Patient spiked a fever overnight and has normal temperature now (T max 101, T current 98.4). ROS could not be obtained because patient is intubated and lethargic at time of evaluation. CCU Objective - Vital Signs / Intake & Output Intake and Output (Last 8hrs): Intake & Output 11/15/16 11/15/16 11/15/16 06:59 14:59 22:59 Intake Total 930 165 Output Total 825 165 Balance 105 0 Weight 256 lb 9.889 oz Intake: Intake, IV Amount 40 15 Right Proximal Port 40 15 Internal Jugular Tube Feeding 390 150 Other 500 Output: Urine 825 165 Urethral ([place]) 825 165 - Physical Exam Head: Positive for: Atraumatic, Normocephalic Pupils: Positive for: PERRL. Negative for: Sluggish, Non-Reactive Extroacular Muscles: Positive for: EOMI. Negative for: Gaze Palsy Conjunctiva: Positive for: Normal. Negative for: Injected, Icteric Mouth: Positive for: Moist Mucous Membranes Neck: Positive for: Normal Range of Motion, Trachea Midline. Negative for: Meningeal Signs, MIDLINE TENDERNESS, Paraspinal Tenderness, JVD, Lymphadenopathy , Bruit, Other Respiratory/Chest: Positive for: Wheezes, Decreased Breath Sounds, Other ( intubated). Negative for: Rales Cardiovascular: Positive for: Irregular Rhythm, Peripheal Pulses Present, Tachycardic. Negative for: Murmurs, Normal S1, S2 Abdomen: Negative for: Tenderness, Distention Upper Extremity: Positive for: Normal Inspection Lower Extremity: Positive for: Edema Neurological: Negative for: Speech Normal Psychiatric: Negative for: Alert, Oriented x 3 - Medications Active Medications: Active Medications Generic Name Dose Route Start Last Admin Trade Name Freq PRN Reason Stop Dose Admin Acetaminophen 650 mg 11/14/16 20:10 11/14/16 20:29 Tylenol 650mg/20.3ml Solution Ud GT 650 mg Q6 PRN Administration Fever >100.4 F Acetazolamide 500 mg 11/15/16 15:00 11/15/16 15:12 Diamox 500 Mg Inj IV 11/16/16 07:01 500 mg Q8H CRISTOBAL Administration Amiodarone HCl 200 mg 11/15/16 18:00 Cordarone PO Q8H CRISTOBAL Diltiazem HCl 60 mg 11/15/16 12:00 11/15/16 12:00 Cardizem PO Not Given Q6 CRISTOBAL Propofol 100 mls @ 3.493 mls/hr 11/08/16 08:29 11/14/16 07:00 Diprivan IV 0 mcg/kg/min .Q24H PRN Titration TITRATE PER MD ORDER Protocol 5 MCG/KG/MIN Diltiazem HCl 125 mg/ Sodium 125 mls @ 5 mls/hr 11/14/16 19:00 11/14/16 19:49 Chloride IV 5 mls/hr .Q24H CRISTOBAL Administration Protocol 5 MG/HR Imipenem/Cilastatin Sodium 1, 250 mls @ 250 mls/hr 11/15/16 13:00 11/15/16 13: 16 000 mg/ Sodium Chloride IVPB 250 mls/hr Q8H CRISTOBAL Administration Vancomycin HCl 1,500 mg/ 500 mls @ 250 mls/hr 11/15/16 12:00 11/15/16 15:14 Sodium Chloride IVPB 250 mls/hr Q12H CRISTOBAL Administration Potassium Chloride 100 mls @ 50 mls/hr 11/15/16 14:00 11/15/16 13:27 Potassium Chloride 20 Meq/100 Ml IVPB 11/15/16 17:59 50 mls/hr Q2H CRISTOBAL Administration Insulin Glargine 15 unit 11/14/16 10:14 11/15/16 08:32 Lantus SC 15 units 0800,1999 CRISTOBAL Administration Insulin Human Regular 0 unit 11/13/16 08:40 11/15/16 13:16 Novolin R SC 6 unit Q6 CRISTOBAL Administration Protocol Methimazole 10 mg 11/14/16 10:00 11/15/16 10:09 Tapazole PO 10 mg BID CRISTOBAL Administration Methylprednisolone 20 mg 11/13/16 09:30 11/15/16 10:09 Solu-Medrol IVP 20 mg Q12 CRISTOBAL Administration Metoprolol Tartrate 2.5 mg 11/10/16 20:14 11/15/16 15:07 Lopressor IVP 2.5 mg Q6H CRISTOBAL Administration Nystatin 0 ea 11/04/16 18:00 11/15/16 15:13 Mycostatin Cream TOP 1 applic TID CRISTOBAL Administration Pantoprazole Sodium 40 mg 11/04/16 16:45 11/15/16 10:09 Protonix Inj IVP 40 mg DAILY CRISTOBAL Administration Senna/Docusate Sodium 1 tab 11/12/16 11:30 11/15/16 10:33 Senokot S 50 Mg-8.6 Mg PO Not Given BID CRISTOBAL Vitamin A 1 ea 11/09/16 18:00 11/15/16 10:10 Vitamin A & D Oint Ud Foilpak TOP 1 ea BID CRISTOBAL Administration - Patient Studies Lab Studies: Lab Studies 11/15/16 11/15/16 11/15/16 Range/Units 13:25 12:49 06:30 WBC 17.2 H D (4.8-10.8) K/uL RBC 3.99 (3.80-5.20) Mil/uL Hgb 11.4 (11.0-16.0) g/dL Hct 36.5 (34.0-47.0) % MCV 91.5 (81.0-99.0) fL MCH 28.6 (27.0-31.0) pg MCHC 31.2 L (33.0-37.0) g/dL RDW 14.7 H (11.5-14.5) % Plt Count 172 (130-400) K/uL MPV 10.4 (7.2-11.7) fL Neut % (Auto) 90.5 H (50.0-75.0) % Lymph % (Auto) 5.1 L (20.0-40.0) % Holt % (Auto) 4.1 (0.0-10.0) % Eos % (Auto) 0.0 (0.0-4.0) % Baso % (Auto) 0.3 (0.0-2.0) % Neut # 15.5 H (1.8-7.0) K/uL Lymph # 0.9 L (1.0-4.3) K/uL Holt # 0.7 (0.0-0.8) K/uL Eos # 0.0 (0.0-0.7) K/uL Baso # 0.1 (0.0-0.2) K/uL Neutrophils % (Manual) 85 H (50-75) % Band Neutrophils % 3 H (0-2) % Lymphocytes % (Manual) 10 L (20-40) % Monocytes % (Manual) 2 (0-10) % Platelet Estimate Normal (NORMAL) RBC Morphology Normal Puncture Site pCO2 (35-45) mm/Hg pO2 (80-100) mm/Hg HCO3 (21-28) mmol/L ABG pH (7.35-7.45) ABG Total CO2 (22-28) mmol/L ABG O2 Saturation (95-98) % ABG Base Excess (-2.0-3.0) mmol/L ABG Hemoglobin (11.7-17.4) g/dL ABG Carboxyhemoglobin (0.5-1.5) % POC ABG HHb (Measured) (0.0-5.0) % ABG Methemoglobin (0.0-3.0) % Chaz Test A-a O2 Difference mm/Hg Respiratory Index Hgb O2 Saturation (95.0-98.0) % Mechanical Rate FiO2 % Tidal Volume PEEP Sodium 152 H (132-148) mmol/L Potassium 3.1 L (3.6-5.2) mmol/L Chloride 107 (98-107) mmol/L Carbon Dioxide 35 H (22-30) mmol/L Anion Gap 13 (10-20) BUN 39 H (7-17) mg/dL Creatinine 0.7 (0.7-1.2) MG/DL Est GFR ( Amer) > 60 Est GFR (Non-Af Amer) > 60 POC Glucose (mg/dL) 288 H (65-110) mg/dL Random Glucose 229 H (65-105) mg/dL Calcium 9.1 (8.6-10.4) mg/dl Phosphorus 3.1 (2.5-4.5) mg/dL Magnesium 2.3 (1.6-2.3) mg/dL Total Bilirubin 1.1 (0.2-1.3) mg/dL AST 20 (14-36) U/L ALT 37 (9-52) U/L Alkaline Phosphatase 77 (38-126) U/L Total Protein 5.5 L (6.3-8.3) g/dL Albumin 2.8 L (3.5-5.0) g/dL Globulin 2.8 (2.2-3.9) gm/dL Albumin/Globulin Ratio 1.0 (1.0-2.1) Urine Color Yellow (YELLOW) Urine Clarity Hazy (Clear) Urine pH 6.0 (5.0-8.0) Ur Specific [place] 1.028 (1.003-1.030) Urine Protein Negative (NEGATIVE) mg/dL Urine Glucose (UA) 3+ H (Normal) mg/dL Urine Ketones Negative (NEGATIVE) mg/dL Urine Blood Negative (NEGATIVE) Urine Nitrate Negative (NEGATIVE) Urine Bilirubin Negative (NEGATIVE) Urine Urobilinogen 4.0 H (0.2-1.0) mg/dL Ur Leukocyte Esterase Neg (Negative) Mary/uL Urine WBC (Auto) 3 (0-5) /hpf Urine Yeast (Budding) Many H (NEGATIVE) /hpf Fluid Albumin (()) g/dL Thyroperoxidase Ab (<9) IU/mL Thyroglobulin Antibody (< OR = 1) IU/mL 11/15/16 11/15/16 11/15/16 Range/Units 05:41 05:38 04:30 WBC (4.8-10.8) K/uL RBC (3.80-5.20) Mil/uL Hgb (11.0-16.0) g/dL Hct (34.0-47.0) % MCV (81.0-99.0) fL MCH (27.0-31.0) pg MCHC (33.0-37.0) g/dL RDW (11.5-14.5) % Plt Count (130-400) K/uL MPV (7.2-11.7) fL Neut % (Auto) (50.0-75.0) % Lymph % (Auto) (20.0-40.0) % Holt % (Auto) (0.0-10.0) % Eos % (Auto) (0.0-4.0) % Baso % (Auto) (0.0-2.0) % Neut # (1.8-7.0) K/uL Lymph # (1.0-4.3) K/uL Holt # (0.0-0.8) K/uL Eos # (0.0-0.7) K/uL Baso # (0.0-0.2) K/uL Neutrophils % (Manual) (50-75) % Band Neutrophils % (0-2) % Lymphocytes % (Manual) (20-40) % Monocytes % (Manual) (0-10) % Platelet Estimate (NORMAL) RBC Morphology Puncture Site Rr pCO2 61 H (35-45) mm/Hg pO2 76 L (80-100) mm/Hg HCO3 31.6 H (21-28) mmol/L ABG pH 7.38 (7.35-7.45) ABG Total CO2 38.0 H (22-28) mmol/L ABG O2 Saturation 97.8 (95-98) % ABG Base Excess 8.7 H (-2.0-3.0) mmol/L ABG Hemoglobin 13.7 (11.7-17.4) g/dL ABG Carboxyhemoglobin 2.3 H (0.5-1.5) % POC ABG HHb (Measured) 2.1 (0.0-5.0) % ABG Methemoglobin 0.9 (0.0-3.0) % Chaz Test Pos A-a O2 Difference 204.0 mm/Hg Respiratory Index 2.7 Hgb O2 Saturation 94.7 L (95.0-98.0) % Mechanical Rate 14 FiO2 50.0 % Tidal Volume 500 PEEP 5 Sodium (132-148) mmol/L Potassium (3.6-5.2) mmol/L Chloride (98-107) mmol/L Carbon Dioxide (22-30) mmol/L Anion Gap (10-20) BUN (7-17) mg/dL Creatinine (0.7-1.2) MG/DL Est GFR ( Amer) Est GFR (Non-Af Amer) POC Glucose (mg/dL) 267 H < 20 L* (65-110) mg/dL Random Glucose (65-105) mg/dL Calcium (8.6-10.4) mg/dl Phosphorus (2.5-4.5) mg/dL Magnesium (1.6-2.3) mg/dL Total Bilirubin (0.2-1.3) mg/dL AST (14-36) U/L ALT (9-52) U/L Alkaline Phosphatase (38-126) U/L Total Protein (6.3-8.3) g/dL Albumin (3.5-5.0) g/dL Globulin (2.2-3.9) gm/dL Albumin/Globulin Ratio (1.0-2.1) Urine Color (YELLOW) Urine Clarity (Clear) Urine pH (5.0-8.0) Ur Specific [place] (1.003-1.030) Urine Protein (NEGATIVE) mg/dL Urine Glucose (UA) (Normal) mg/dL Urine Ketones (NEGATIVE) mg/dL Urine Blood (NEGATIVE) Urine Nitrate (NEGATIVE) Urine Bilirubin (NEGATIVE) Urine Urobilinogen (0.2-1.0) mg/dL Ur Leukocyte Esterase (Negative) Mary/uL Urine WBC (Auto) (0-5) /hpf Urine Yeast (Budding) (NEGATIVE) /hpf Fluid Albumin (()) g/dL Thyroperoxidase Ab (<9) IU/mL Thyroglobulin Antibody (< OR = 1) IU/mL 11/14/16 11/14/16 11/13/16 Range/Units 23:42 17:48 04:57 WBC (4.8-10.8) K/uL RBC (3.80-5.20) Mil/uL Hgb (11.0-16.0) g/dL Hct (34.0-47.0) % MCV (81.0-99.0) fL MCH (27.0-31.0) pg MCHC (33.0-37.0) g/dL RDW (11.5-14.5) % Plt Count (130-400) K/uL MPV (7.2-11.7) fL Neut % (Auto) (50.0-75.0) % Lymph % (Auto) (20.0-40.0) % Holt % (Auto) (0.0-10.0) % Eos % (Auto) (0.0-4.0) % Baso % (Auto) (0.0-2.0) % Neut # (1.8-7.0) K/uL Lymph # (1.0-4.3) K/uL Holt # (0.0-0.8) K/uL Eos # (0.0-0.7) K/uL Baso # (0.0-0.2) K/uL Neutrophils % (Manual) (50-75) % Band Neutrophils % (0-2) % Lymphocytes % (Manual) (20-40) % Monocytes % (Manual) (0-10) % Platelet Estimate (NORMAL) RBC Morphology Puncture Site pCO2 (35-45) mm/Hg pO2 (80-100) mm/Hg HCO3 (21-28) mmol/L ABG pH (7.35-7.45) ABG Total CO2 (22-28) mmol/L ABG O2 Saturation (95-98) % ABG Base Excess (-2.0-3.0) mmol/L ABG Hemoglobin (11.7-17.4) g/dL ABG Carboxyhemoglobin (0.5-1.5) % POC ABG HHb (Measured) (0.0-5.0) % ABG Methemoglobin (0.0-3.0) % Chaz Test A-a O2 Difference mm/Hg Respiratory Index Hgb O2 Saturation (95.0-98.0) % Mechanical Rate FiO2 % Tidal Volume PEEP Sodium (132-148) mmol/L Potassium (3.6-5.2) mmol/L Chloride (98-107) mmol/L Carbon Dioxide (22-30) mmol/L Anion Gap (10-20) BUN (7-17) mg/dL Creatinine (0.7-1.2) MG/DL Est GFR ( Amer) Est GFR (Non-Af Amer) POC Glucose (mg/dL) 282 H 302 H (65-110) mg/dL Random Glucose (65-105) mg/dL Calcium (8.6-10.4) mg/dl Phosphorus (2.5-4.5) mg/dL Magnesium (1.6-2.3) mg/dL Total Bilirubin (0.2-1.3) mg/dL AST (14-36) U/L ALT (9-52) U/L Alkaline Phosphatase (38-126) U/L Total Protein (6.3-8.3) g/dL Albumin (3.5-5.0) g/dL Globulin (2.2-3.9) gm/dL Albumin/Globulin Ratio (1.0-2.1) Urine Color (YELLOW) Urine Clarity (Clear) Urine pH (5.0-8.0) Ur Specific [place] (1.003-1.030) Urine Protein (NEGATIVE) mg/dL Urine Glucose (UA) (Normal) mg/dL Urine Ketones (NEGATIVE) mg/dL Urine Blood (NEGATIVE) Urine Nitrate (NEGATIVE) Urine Bilirubin (NEGATIVE) Urine Urobilinogen (0.2-1.0) mg/dL Ur Leukocyte Esterase (Negative) Mary/uL Urine WBC (Auto) (0-5) /hpf Urine Yeast (Budding) (NEGATIVE) /hpf Fluid Albumin (()) g/dL Thyroperoxidase Ab <1 (<9) IU/mL Thyroglobulin Antibody <1 (< OR = 1) IU/mL 11/10/16 Range/Units 15:30 WBC (4.8-10.8) K/uL RBC (3.80-5.20) Mil/uL Hgb (11.0-16.0) g/dL Hct (34.0-47.0) % MCV (81.0-99.0) fL MCH (27.0-31.0) pg MCHC (33.0-37.0) g/dL RDW (11.5-14.5) % Plt Count (130-400) K/uL MPV (7.2-11.7) fL Neut % (Auto) (50.0-75.0) % Lymph % (Auto) (20.0-40.0) % Holt % (Auto) (0.0-10.0) % Eos % (Auto) (0.0-4.0) % Baso % (Auto) (0.0-2.0) % Neut # (1.8-7.0) K/uL Lymph # (1.0-4.3) K/uL Holt # (0.0-0.8) K/uL Eos # (0.0-0.7) K/uL Baso # (0.0-0.2) K/uL Neutrophils % (Manual) (50-75) % Band Neutrophils % (0-2) % Lymphocytes % (Manual) (20-40) % Monocytes % (Manual) (0-10) % Platelet Estimate (NORMAL) RBC Morphology Puncture Site pCO2 (35-45) mm/Hg pO2 (80-100) mm/Hg HCO3 (21-28) mmol/L ABG pH (7.35-7.45) ABG Total CO2 (22-28) mmol/L ABG O2 Saturation (95-98) % ABG Base Excess (-2.0-3.0) mmol/L ABG Hemoglobin (11.7-17.4) g/dL ABG Carboxyhemoglobin (0.5-1.5) % POC ABG HHb (Measured) (0.0-5.0) % ABG Methemoglobin (0.0-3.0) % Chaz Test A-a O2 Difference mm/Hg Respiratory Index Hgb O2 Saturation (95.0-98.0) % Mechanical Rate FiO2 % Tidal Volume PEEP Sodium (132-148) mmol/L Potassium (3.6-5.2) mmol/L Chloride (98-107) mmol/L Carbon Dioxide (22-30) mmol/L Anion Gap (10-20) BUN (7-17) mg/dL Creatinine (0.7-1.2) MG/DL Est GFR ( Amer) Est GFR (Non-Af Amer) POC Glucose (mg/dL) (65-110) mg/dL Random Glucose (65-105) mg/dL Calcium (8.6-10.4) mg/dl Phosphorus (2.5-4.5) mg/dL Magnesium (1.6-2.3) mg/dL Total Bilirubin (0.2-1.3) mg/dL AST (14-36) U/L ALT (9-52) U/L Alkaline Phosphatase (38-126) U/L Total Protein (6.3-8.3) g/dL Albumin (3.5-5.0) g/dL Globulin (2.2-3.9) gm/dL Albumin/Globulin Ratio (1.0-2.1) Urine Color (YELLOW) Urine Clarity (Clear) Urine pH (5.0-8.0) Ur Specific [place] (1.003-1.030) Urine Protein (NEGATIVE) mg/dL Urine Glucose (UA) (Normal) mg/dL Urine Ketones (NEGATIVE) mg/dL Urine Blood (NEGATIVE) Urine Nitrate (NEGATIVE) Urine Bilirubin (NEGATIVE) Urine Urobilinogen (0.2-1.0) mg/dL Ur Leukocyte Esterase (Negative) Mary/uL Urine WBC (Auto) (0-5) /hpf Urine Yeast (Budding) (NEGATIVE) /hpf Fluid Albumin 0.6 (()) g/dL Thyroperoxidase Ab (<9) IU/mL Thyroglobulin Antibody (< OR = 1) IU/mL Laboratory Results - last 24 hr 11/10/16 11/13/16 11/14/16 15:30 04:57 17:48 WBC RBC Hgb Hct MCV MCH MCHC RDW Plt Count MPV Neut % (Auto) Lymph % (Auto) Holt % (Auto) Eos % (Auto) Baso % (Auto) Neut # Lymph # Holt # Eos # Baso # Neutrophils % (Manual) Band Neutrophils % Lymphocytes % (Manual) Monocytes % (Manual) Platelet Estimate RBC Morphology Puncture Site pCO2 pO2 HCO3 ABG pH ABG Total CO2 ABG O2 Saturation ABG Base Excess ABG Hemoglobin ABG Carboxyhemoglobin POC ABG HHb (Measured) ABG Methemoglobin Chaz Test A-a O2 Difference Respiratory Index Hgb O2 Saturation Mechanical Rate FiO2 Tidal Volume PEEP Sodium Potassium Chloride Carbon Dioxide Anion Gap BUN Creatinine Est GFR ( Amer) Est GFR (Non-Af Amer) POC Glucose (mg/dL) 302 H Random Glucose Calcium Phosphorus Magnesium Total Bilirubin AST ALT Alkaline Phosphatase Total Protein Albumin Globulin Albumin/Globulin Ratio Urine Color Urine Clarity Urine pH Ur Specific [place] Urine Protein Urine Glucose (UA) Urine Ketones Urine Blood Urine Nitrate Urine Bilirubin Urine Urobilinogen Ur Leukocyte Esterase Urine WBC (Auto) Urine Yeast (Budding) Fluid Albumin 0.6 Thyroperoxidase Ab <1 Thyroglobulin Antibody <1 03/11/15/16 11/15/16 23:42 04:30 05:38 WBC RBC Hgb Hct MCV MCH MCHC RDW Plt Count MPV Neut % (Auto) Lymph % (Auto) Holt % (Auto) Eos % (Auto) Baso % (Auto) Neut # Lymph # Holt # Eos # Baso # Neutrophils % (Manual) Band Neutrophils % Lymphocytes % (Manual) Monocytes % (Manual) Platelet Estimate RBC Morphology Puncture Site Rr pCO2 61 H pO2 76 L HCO3 31.6 H ABG pH 7.38 ABG Total CO2 38.0 H ABG O2 Saturation 97.8 ABG Base Excess 8.7 H ABG Hemoglobin 13.7 ABG Carboxyhemoglobin 2.3 H POC ABG HHb (Measured) 2.1 ABG Methemoglobin 0.9 Chaz Test Pos A-a O2 Difference 204.0 Respiratory Index 2.7 Hgb O2 Saturation 94.7 L Mechanical Rate 14 FiO2 50.0 Tidal Volume 500 PEEP 5 Sodium Potassium Chloride Carbon Dioxide Anion Gap BUN Creatinine Est GFR ( Amer) Est GFR (Non-Af Amer) POC Glucose (mg/dL) 282 H < 20 L* Random Glucose Calcium Phosphorus Magnesium Total Bilirubin AST ALT Alkaline Phosphatase Total Protein Albumin Globulin Albumin/Globulin Ratio Urine Color Urine Clarity Urine pH Ur Specific [place] Urine Protein Urine Glucose (UA) Urine Ketones Urine Blood Urine Nitrate Urine Bilirubin Urine Urobilinogen Ur Leukocyte Esterase Urine WBC (Auto) Urine Yeast (Budding) Fluid Albumin Thyroperoxidase Ab Thyroglobulin Antibody 11/15/16 11/15/16 11/15/16 05:41 06:30 12:49 WBC 17.2 H D RBC 3.99 Hgb 11.4 Hct 36.5 MCV 91.5 MCH 28.6 MCHC 31.2 L RDW 14.7 H Plt Count 172 MPV 10.4 Neut % (Auto) 90.5 H Lymph % (Auto) 5.1 L Holt % (Auto) 4.1 Eos % (Auto) 0.0 Baso % (Auto) 0.3 Neut # 15.5 H Lymph # 0.9 L Holt # 0.7 Eos # 0.0 Baso # 0.1 Neutrophils % (Manual) 85 H Band Neutrophils % 3 H Lymphocytes % (Manual) 10 L Monocytes % (Manual) 2 Platelet Estimate Normal RBC Morphology Normal Puncture Site pCO2 pO2 HCO3 ABG pH ABG Total CO2 ABG O2 Saturation ABG Base Excess ABG Hemoglobin ABG Carboxyhemoglobin POC ABG HHb (Measured) ABG Methemoglobin Chaz Test A-a O2 Difference Respiratory Index Hgb O2 Saturation Mechanical Rate FiO2 Tidal Volume PEEP Sodium 152 H Potassium 3.1 L Chloride 107 Carbon Dioxide 35 H Anion Gap 13 BUN 39 H Creatinine 0.7 Est GFR ( Amer) > 60 Est GFR (Non-Af Amer) > 60 POC Glucose (mg/dL) 267 H 288 H Random Glucose 229 H Calcium 9.1 Phosphorus 3.1 Magnesium 2.3 Total Bilirubin 1.1 AST 20 ALT 37 Alkaline Phosphatase 77 Total Protein 5.5 L Albumin 2.8 L Globulin 2.8 Albumin/Globulin Ratio 1.0 Urine Color Urine Clarity Urine pH Ur Specific [place] Urine Protein Urine Glucose (UA) Urine Ketones Urine Blood Urine Nitrate Urine Bilirubin Urine Urobilinogen Ur Leukocyte Esterase Urine WBC (Auto) Urine Yeast (Budding) Fluid Albumin Thyroperoxidase Ab Thyroglobulin Antibody 11/15/16 13:25 WBC RBC Hgb Hct MCV MCH MCHC RDW Plt Count MPV Neut % (Auto) Lymph % (Auto) Holt % (Auto) Eos % (Auto) Baso % (Auto) Neut # Lymph # [place] # Eos # Baso # Neutrophils % (Manual) Band Neutrophils % Lymphocytes % (Manual) Monocytes % (Manual) Platelet Estimate RBC Morphology Puncture Site pCO2 pO2 HCO3 ABG pH ABG Total CO2 ABG O2 Saturation ABG Base Excess ABG Hemoglobin ABG Carboxyhemoglobin POC ABG HHb (Measured) ABG Methemoglobin Chaz Test A-a O2 Difference Respiratory Index Hgb O2 Saturation Mechanical Rate FiO2 Tidal Volume PEEP Sodium Potassium Chloride Carbon Dioxide Anion Gap BUN Creatinine Est GFR ( Amer) Est GFR (Non-Af Amer) POC Glucose (mg/dL) Random Glucose Calcium Phosphorus Magnesium Total Bilirubin AST ALT Alkaline Phosphatase Total Protein Albumin Globulin Albumin/Globulin Ratio Urine Color Yellow Urine Clarity Hazy Urine pH 6.0 Ur Specific [place] 1.028 Urine Protein Negative Urine Glucose (UA) 3+ H Urine Ketones Negative Urine Blood Negative Urine Nitrate Negative Urine Bilirubin Negative Urine Urobilinogen 4.0 H Ur Leukocyte Esterase Neg Urine WBC (Auto) 3 Urine Yeast (Budding) Many H Fluid Albumin Thyroperoxidase Ab Thyroglobulin Antibody Fingerstick Blood Sugar Results: 288 Review of Systems - Review of Systems Systems not reviewed;Unavailable: Intubated Review of Systems: see subjective Assessment/Plan - Assessment and Plan (Free Text) Assessment: 61 F with history of hyperthyroidism, admitted to ED for hyperglycemia, altered mental status, and a-fib. Patient was admitted to ICU for treatment of DKA and patient continues to be monitored in the ICU. Over the weekend, patient had an episode of epistaxis, which appears to have resolved. Plan: Neuro: Neurochecks Q4 Sedation: Propofol 100 cc @ 3.493 cc/hr IV Q24H (5 mcg/kg/min) HEENT: Packing removed. Cont to monitor site. Cont to monitor Hgb/Hct Afrin discontinued Cardiovascular: Imagin/26 CT soft tissue neck: no significant evidence of lymphadenopathy, moderately enlarged ET and NG tube. 11/13 CT Lower extremity: soft tissue swelling/stranding suggestive of cellulitis. no evidence of abscess. 11/13 CTA of chest/abdomen/pelvis: suspicious mass lesion at right kidney midpole 4.2 x 4.5. Moderate enlargement of bilateral adrenal gland with right > left. low attenuation nodules. increase in size of left pleural effusion since pervious study. complete collapse of left lower lobe. 2.8 cm low-attenuation lesion at anterior upper portion of spleen. foci of cortical irregularity and lucency in spine and right ribs. cardiomegaly 11/10 Duplex scan lower extremity artery: no evidence of deep or superficial vein thrombosis of Right and Left lower extremity. 11/09 Echocardiogram: LVEF 65%, elevated diastolic filling pressures. 11/04 EKG: atrial fibrillation with RVR, PVCs @ [address] consult - Dr. Scooter Avalos - f/u on VATS consideration d/t pleural effusion/ loculations found on CTA of chest Metoprolol 2.5 mg IVP Q6H CRISTOBAL Acetazolamide 250 mg IV Q6 CRISTOBAL Amiodarone HCl 200 mg PO TID Pulmonary ET tube advanced 2 cm Vent settings: 11/15 FiO2 50%, RR 14, PEEP 5, TV 500 11/14 FiO2 50%, RR 14, PEEP 5, TV 500 and is saturating well at 100%. AB/28 pH 7.38, CO2 61, O2 76, HCO3 31.6 11/14 pH 7.51, CO2 43, O2 198, HCO3 32.9 Imagin/28 CXR: no significant interval change from 11/14. Considerations for bronch in light of uptrending WBCs, fever. F/U bronch studies .Solumedrol 10 Q12 IV 11/14 CXR: biapical thickening with upper lobe granulomatous changes. moderate venous congestion. prominent bibasilar airspace opacities with moderate left and small right pleural effusion 11/13 CXR: small left pleural effusion. congestive change. no infiltrates Endo: HHS Diabetes History of Hyperthyroidism Methimazole 10 mg PO BID CRISTOBAL Novolin R Q6H CRISTOBAL Lantus 15 units 0600 and 2000 CRISTOBAL Accucheck Q6 ACHS GI Fluid differential Pathologist review - few sheets of reactive mesothelial cells. scattered lymphocytes, macrophages, and RBCs negative for malignant cells. mildly inflamed pleural fluid negative for malignant cells. Senna/Docusate 50 mg - 8.6 mg 1 tab PO BID Vitamin A & D oint UD foilpak 1 ea TOP BID CRISTOBAL Daily CMP Nephro/: = -845 Monitor I/Os Hemphill Inserted Maintain Hemphill care BUN/Cr:39/0.7 (41/0.9>39/0.7) Hypokalemia - repleted Monitor I/Os Daily CMP Heme: H&H 11.4/36.5 Daily CBC ID: Uptrending WBCs Neutrophil 85 Bands 3 Daily CBC Nystatin TOP TID CRISTOBAL Acetaminophen 650 mg VT Q6 PRN temperature >101 F Vancomycin 1500 mg, 500 cc @ 250 cc/hr IVPB Q12H Imipenem/Cilastatin 1 Gm 250 cc @ 250 cc/hr IVPB Q8H CRISTOBAL F/U Vanco trough in AM F/U Bates cultures, bronch cultures smear Prophylaxis DVT: SCDs, ASA 81 mg, Lovenox 110mg SC Q12 GI: Pepcid <Jeny-FittaMorena - Last Filed: 11/15/16 16:12> CCU Objective - Vital Signs / Intake & Output Intake and Output (Last 8hrs): Intake & Output 11/15/16 11/15/16 11/15/16 06:59 14:59 22:59 Intake Total 930 165 Output Total 825 165 Balance 105 0 Weight 256 lb 9.889 oz Intake: Intake, IV Amount 40 15 Right Proximal Port 40 15 Internal Jugular Tube Feeding 390 150 Other 500 Output: Urine 825 165 Urethral (Hemphill) 825 165 - Medications Active Medications: Active Medications Generic Name Dose Route Start Last Admin Trade Name Freq PRN Reason Stop Dose Admin Acetaminophen 650 mg 11/14/16 20:10 11/14/16 20:29 Tylenol 650mg/20.3ml Solution Ud GT 650 mg Q6 PRN Administration Fever >100.4 F Acetazolamide 500 mg 11/15/16 15:00 11/15/16 15:12 Diamox 500 Mg Inj IV 11/16/16 07:01 500 mg Q8H CRISTOBAL Administration Amiodarone HCl 200 mg 11/15/16 18:00 Cordarone PO Q8H CRISTOBAL Diltiazem HCl 60 mg 11/15/16 12:00 11/15/16 12:00 Cardizem PO Not Given Q6 CRISTOBAL Enoxaparin Sodium 110 mg 11/15/16 22:00 Lovenox SC Q12 CRISTOBAL Propofol 100 mls @ 3.493 mls/hr 11/08/16 08:29 11/14/16 07:00 Diprivan IV 0 mcg/kg/min .Q24H PRN Titration TITRATE PER MD ORDER Protocol 5 MCG/KG/MIN Diltiazem HCl 125 mg/ Sodium 125 mls @ 5 mls/hr 11/14/16 19:00 11/14/16 19:49 Chloride IV 5 mls/hr .Q24H CRISTOBAL Administration Protocol 5 MG/HR Imipenem/Cilastatin Sodium 1, 250 mls @ 250 mls/hr 11/15/16 13:00 11/15/16 13: 16 000 mg/ Sodium Chloride IVPB 250 mls/hr Q8H CRISTOBAL Administration Vancomycin HCl 1,500 mg/ 500 mls @ 250 mls/hr 11/15/16 12:00 11/15/16 15:14 Sodium Chloride IVPB 250 mls/hr Q12H CRISTOBAL Administration Potassium Chloride 100 mls @ 50 mls/hr 11/15/16 14:00 11/15/16 13:27 Potassium Chloride 20 Meq/100 Ml IVPB 11/15/16 17:59 50 mls/hr Q2H CRISTOBAL Administration Insulin Glargine 15 unit 11/14/16 10:14 11/15/16 08:32 Lantus SC 15 units 0800,2000 CRISTOBAL Administration Insulin Human Regular 0 unit 11/13/16 08:40 11/15/16 13:16 Novolin R SC 6 unit Q6 CRISTOBAL Administration Protocol Methimazole 10 mg 11/14/16 10:00 11/15/16 10:09 Tapazole PO 10 mg BID CRISTOBAL Administration Methylprednisolone 10 mg 11/15/16 22:00 Solu-Medrol IVP Q12 CRISTOBAL Metoprolol Tartrate 2.5 mg 11/10/16 20:14 11/15/16 15:07 Lopressor IVP 2.5 mg Q6H CRISTOBAL Administration Nystatin 0 ea 11/04/16 18:00 11/15/16 15:13 Mycostatin Cream TOP 1 applic TID CRISTOBAL Administration Pantoprazole Sodium 40 mg 11/04/16 16:45 11/15/16 10:09 Protonix Inj IVP 40 mg DAILY CRISTOBAL Administration Senna/Docusate Sodium 1 tab 11/12/16 11:30 11/15/16 10:33 Senokot S 50 Mg-8.6 Mg PO Not Given BID CRISTOBAL Vitamin A 1 ea 11/09/16 18:00 11/15/16 10:10 Vitamin A & D Oint Ud Foilpak TOP 1 ea BID CRISTOBAL Administration - Patient Studies Lab Studies: Lab Studies 11/15/16 11/15/16 11/15/16 Range/Units 13:25 12:49 06:30 WBC 17.2 H D (4.8-10.8) K/uL RBC 3.99 (3.80-5.20) Mil/uL Hgb 11.4 (11.0-16.0) g/dL Hct 36.5 (34.0-47.0) % MCV 91.5 (81.0-99.0) fL MCH 28.6 (27.0-31.0) pg MCHC 31.2 L (33.0-37.0) g/dL RDW 14.7 H (11.5-14.5) % Plt Count 172 (130-400) K/uL MPV 10.4 (7.2-11.7) fL Neut % (Auto) 90.5 H (50.0-75.0) % Lymph % (Auto) 5.1 L (20.0-40.0) % Holt % (Auto) 4.1 (0.0-10.0) % Eos % (Auto) 0.0 (0.0-4.0) % Baso % (Auto) 0.3 (0.0-2.0) % Neut # 15.5 H (1.8-7.0) K/uL Lymph # 0.9 L (1.0-4.3) K/uL Holt # 0.7 (0.0-0.8) K/uL Eos # 0.0 (0.0-0.7) K/uL Baso # 0.1 (0.0-0.2) K/uL Neutrophils % (Manual) 85 H (50-75) % Band Neutrophils % 3 H (0-2) % Lymphocytes % (Manual) 10 L (20-40) % Monocytes % (Manual) 2 (0-10) % Platelet Estimate Normal (NORMAL) RBC Morphology Normal Puncture Site pCO2 (35-45) mm/Hg pO2 (80-100) mm/Hg HCO3 (21-28) mmol/L ABG pH (7.35-7.45) ABG Total CO2 (22-28) mmol/L ABG O2 Saturation (95-98) % ABG Base Excess (-2.0-3.0) mmol/L ABG Hemoglobin (11.7-17.4) g/dL ABG Carboxyhemoglobin (0.5-1.5) % POC ABG HHb (Measured) (0.0-5.0) % ABG Methemoglobin (0.0-3.0) % Chaz Test A-a O2 Difference mm/Hg Respiratory Index Hgb O2 Saturation (95.0-98.0) % Mechanical Rate FiO2 % Tidal Volume PEEP Sodium 152 H (132-148) mmol/L Potassium 3.1 L (3.6-5.2) mmol/L Chloride 107 (98-107) mmol/L Carbon Dioxide 35 H (22-30) mmol/L Anion Gap 13 (10-20) BUN 39 H (7-17) mg/dL Creatinine 0.7 (0.7-1.2) MG/DL Est GFR ( Amer) > 60 Est GFR (Non-Af Amer) > 60 POC Glucose (mg/dL) 288 H (65-110) mg/dL Random Glucose 229 H (65-105) mg/dL Calcium 9.1 (8.6-10.4) mg/dl Phosphorus 3.1 (2.5-4.5) mg/dL Magnesium 2.3 (1.6-2.3) mg/dL Total Bilirubin 1.1 (0.2-1.3) mg/dL AST 20 (14-36) U/L ALT 37 (9-52) U/L Alkaline Phosphatase 77 (38-126) U/L Total Protein 5.5 L (6.3-8.3) g/dL Albumin 2.8 L (3.5-5.0) g/dL Globulin 2.8 (2.2-3.9) gm/dL Albumin/Globulin Ratio 1.0 (1.0-2.1) Urine Color Yellow (YELLOW) Urine Clarity Hazy (Clear) Urine pH 6.0 (5.0-8.0) Ur Specific [place] 1.028 (1.003-1.030) Urine Protein Negative (NEGATIVE) mg/dL Urine Glucose (UA) 3+ H (Normal) mg/dL Urine Ketones Negative (NEGATIVE) mg/dL Urine Blood Negative (NEGATIVE) Urine Nitrate Negative (NEGATIVE) Urine Bilirubin Negative (NEGATIVE) Urine Urobilinogen 4.0 H (0.2-1.0) mg/dL Ur Leukocyte Esterase Neg (Negative) Mary/uL Urine WBC (Auto) 3 (0-5) /hpf Urine Yeast (Budding) Many H (NEGATIVE) /hpf Fluid Albumin (()) g/dL Thyroperoxidase Ab (<9) IU/mL Thyroglobulin Antibody (< OR = 1) IU/mL 11/15/16 11/15/16 11/15/16 Range/Units 05:41 05:38 04:30 WBC (4.8-10.8) K/uL RBC (3.80-5.20) Mil/uL Hgb (11.0-16.0) g/dL Hct (34.0-47.0) % MCV (81.0-99.0) fL MCH (27.0-31.0) pg MCHC (33.0-37.0) g/dL RDW (11.5-14.5) % Plt Count (130-400) K/uL MPV (7.2-11.7) fL Neut % (Auto) (50.0-75.0) % Lymph % (Auto) (20.0-40.0) % Holt % (Auto) (0.0-10.0) % Eos % (Auto) (0.0-4.0) % Baso % (Auto) (0.0-2.0) % Neut # (1.8-7.0) K/uL Lymph # (1.0-4.3) K/uL Holt # (0.0-0.8) K/uL Eos # (0.0-0.7) K/uL Baso # (0.0-0.2) K/uL Neutrophils % (Manual) (50-75) % Band Neutrophils % (0-2) % Lymphocytes % (Manual) (20-40) % Monocytes % (Manual) (0-10) % Platelet Estimate (NORMAL) RBC Morphology Puncture Site Rr pCO2 61 H (35-45) mm/Hg pO2 76 L (80-100) mm/Hg HCO3 31.6 H (21-28) mmol/L ABG pH 7.38 (7.35-7.45) ABG Total CO2 38.0 H (22-28) mmol/L ABG O2 Saturation 97.8 (95-98) % ABG Base Excess 8.7 H (-2.0-3.0) mmol/L ABG Hemoglobin 13.7 (11.7-17.4) g/dL ABG Carboxyhemoglobin 2.3 H (0.5-1.5) % POC ABG HHb (Measured) 2.1 (0.0-5.0) % ABG Methemoglobin 0.9 (0.0-3.0) % Chaz Test Pos A-a O2 Difference 204.0 mm/Hg Respiratory Index 2.7 Hgb O2 Saturation 94.7 L (95.0-98.0) % Mechanical Rate 14 FiO2 50.0 % Tidal Volume 500 PEEP 5 Sodium (132-148) mmol/L Potassium (3.6-5.2) mmol/L Chloride (98-107) mmol/L Carbon Dioxide (22-30) mmol/L Anion Gap (10-20) BUN (7-17) mg/dL Creatinine (0.7-1.2) MG/DL Est GFR ( Amer) Est GFR (Non-Af Amer) POC Glucose (mg/dL) 267 H < 20 L* (65-110) mg/dL Random Glucose (65-105) mg/dL Calcium (8.6-10.4) mg/dl Phosphorus (2.5-4.5) mg/dL Magnesium (1.6-2.3) mg/dL Total Bilirubin (0.2-1.3) mg/dL AST (14-36) U/L ALT (9-52) U/L Alkaline Phosphatase (38-126) U/L Total Protein (6.3-8.3) g/dL Albumin (3.5-5.0) g/dL Globulin (2.2-3.9) gm/dL Albumin/Globulin Ratio (1.0-2.1) Urine Color (YELLOW) Urine Clarity (Clear) Urine pH (5.0-8.0) Ur Specific [place] (1.003-1.030) Urine Protein (NEGATIVE) mg/dL Urine Glucose (UA) (Normal) mg/dL Urine Ketones (NEGATIVE) mg/dL Urine Blood (NEGATIVE) Urine Nitrate (NEGATIVE) Urine Bilirubin (NEGATIVE) Urine Urobilinogen (0.2-1.0) mg/dL Ur Leukocyte Esterase (Negative) Mary/uL Urine WBC (Auto) (0-5) /hpf Urine Yeast (Budding) (NEGATIVE) /hpf Fluid Albumin (()) g/dL Thyroperoxidase Ab (<9) IU/mL Thyroglobulin Antibody (< OR = 1) IU/mL 11/14/16 11/14/16 11/13/16 Range/Units 23:42 17:48 04:57 WBC (4.8-10.8) K/uL RBC (3.80-5.20) Mil/uL Hgb (11.0-16.0) g/dL Hct (34.0-47.0) % MCV (81.0-99.0) fL MCH (27.0-31.0) pg MCHC (33.0-37.0) g/dL RDW (11.5-14.5) % Plt Count (130-400) K/uL MPV (7.2-11.7) fL Neut % (Auto) (50.0-75.0) % Lymph % (Auto) (20.0-40.0) % Holt % (Auto) (0.0-10.0) % Eos % (Auto) (0.0-4.0) % Baso % (Auto) (0.0-2.0) % Neut # (1.8-7.0) K/uL Lymph # (1.0-4.3) K/uL Holt # (0.0-0.8) K/uL Eos # (0.0-0.7) K/uL Baso # (0.0-0.2) K/uL Neutrophils % (Manual) (50-75) % Band Neutrophils % (0-2) % Lymphocytes % (Manual) (20-40) % Monocytes % (Manual) (0-10) % Platelet Estimate (NORMAL) RBC Morphology Puncture Site pCO2 (35-45) mm/Hg pO2 (80-100) mm/Hg HCO3 (21-28) mmol/L ABG pH (7.35-7.45) ABG Total CO2 (22-28) mmol/L ABG O2 Saturation (95-98) % ABG Base Excess (-2.0-3.0) mmol/L ABG Hemoglobin (11.7-17.4) g/dL ABG Carboxyhemoglobin (0.5-1.5) % POC ABG HHb (Measured) (0.0-5.0) % ABG Methemoglobin (0.0-3.0) % Chaz Test A-a O2 Difference mm/Hg Respiratory Index Hgb O2 Saturation (95.0-98.0) % Mechanical Rate FiO2 % Tidal Volume PEEP Sodium (132-148) mmol/L Potassium (3.6-5.2) mmol/L Chloride (98-107) mmol/L Carbon Dioxide (22-30) mmol/L Anion Gap (10-20) BUN (7-17) mg/dL Creatinine (0.7-1.2) MG/DL Est GFR ( Amer) Est GFR (Non-Af Amer) POC Glucose (mg/dL) 282 H 302 H (65-110) mg/dL Random Glucose (65-105) mg/dL Calcium (8.6-10.4) mg/dl Phosphorus (2.5-4.5) mg/dL Magnesium (1.6-2.3) mg/dL Total Bilirubin (0.2-1.3) mg/dL AST (14-36) U/L ALT (9-52) U/L Alkaline Phosphatase (38-126) U/L Total Protein (6.3-8.3) g/dL Albumin (3.5-5.0) g/dL Globulin (2.2-3.9) gm/dL Albumin/Globulin Ratio (1.0-2.1) Urine Color (YELLOW) Urine Clarity (Clear) Urine pH (5.0-8.0) Ur Specific [place] (1.003-1.030) Urine Protein (NEGATIVE) mg/dL Urine Glucose (UA) (Normal) mg/dL Urine Ketones (NEGATIVE) mg/dL Urine Blood (NEGATIVE) Urine Nitrate (NEGATIVE) Urine Bilirubin (NEGATIVE) Urine Urobilinogen (0.2-1.0) mg/dL Ur Leukocyte Esterase (Negative) Mary/uL Urine WBC (Auto) (0-5) /hpf Urine Yeast (Budding) (NEGATIVE) /hpf Fluid Albumin (()) g/dL Thyroperoxidase Ab <1 (<9) IU/mL Thyroglobulin Antibody <1 (< OR = 1) IU/mL 11/10/16 Range/Units 15:30 WBC (4.8-10.8) K/uL RBC (3.80-5.20) Mil/uL Hgb (11.0-16.0) g/dL Hct (34.0-47.0) % MCV (81.0-99.0) fL MCH (27.0-31.0) pg MCHC (33.0-37.0) g/dL RDW (11.5-14.5) % Plt Count (130-400) K/uL MPV (7.2-11.7) fL Neut % (Auto) (50.0-75.0) % Lymph % (Auto) (20.0-40.0) % Holt % (Auto) (0.0-10.0) % Eos % (Auto) (0.0-4.0) % Baso % (Auto) (0.0-2.0) % Neut # (1.8-7.0) K/uL Lymph # (1.0-4.3) K/uL Holt # (0.0-0.8) K/uL Eos # (0.0-0.7) K/uL Baso # (0.0-0.2) K/uL Neutrophils % (Manual) (50-75) % Band Neutrophils % (0-2) % Lymphocytes % (Manual) (20-40) % Monocytes % (Manual) (0-10) % Platelet Estimate (NORMAL) RBC Morphology Puncture Site pCO2 (35-45) mm/Hg pO2 (80-100) mm/Hg HCO3 (21-28) mmol/L ABG pH (7.35-7.45) ABG Total CO2 (22-28) mmol/L ABG O2 Saturation (95-98) % ABG Base Excess (-2.0-3.0) mmol/L ABG Hemoglobin (11.7-17.4) g/dL ABG Carboxyhemoglobin (0.5-1.5) % POC ABG HHb (Measured) (0.0-5.0) % ABG Methemoglobin (0.0-3.0) % Chaz Test A-a O2 Difference mm/Hg Respiratory Index Hgb O2 Saturation (95.0-98.0) % Mechanical Rate FiO2 % Tidal Volume PEEP Sodium (132-148) mmol/L Potassium (3.6-5.2) mmol/L Chloride (98-107) mmol/L Carbon Dioxide (22-30) mmol/L Anion Gap (10-20) BUN (7-17) mg/dL Creatinine (0.7-1.2) MG/DL Est GFR ( Amer) Est GFR (Non-Af Amer) POC Glucose (mg/dL) (65-110) mg/dL Random Glucose (65-105) mg/dL Calcium (8.6-10.4) mg/dl Phosphorus (2.5-4.5) mg/dL Magnesium (1.6-2.3) mg/dL Total Bilirubin (0.2-1.3) mg/dL AST (14-36) U/L ALT (9-52) U/L Alkaline Phosphatase (38-126) U/L Total Protein (6.3-8.3) g/dL Albumin (3.5-5.0) g/dL Globulin (2.2-3.9) gm/dL Albumin/Globulin Ratio (1.0-2.1) Urine Color (YELLOW) Urine Clarity (Clear) Urine pH (5.0-8.0) Ur Specific [place] (1.003-1.030) Urine Protein (NEGATIVE) mg/dL Urine Glucose (UA) (Normal) mg/dL Urine Ketones (NEGATIVE) mg/dL Urine Blood (NEGATIVE) Urine Nitrate (NEGATIVE) Urine Bilirubin (NEGATIVE) Urine Urobilinogen (0.2-1.0) mg/dL Ur Leukocyte Esterase (Negative) Mary/uL Urine WBC (Auto) (0-5) /hpf Urine Yeast (Budding) (NEGATIVE) /hpf Fluid Albumin 0.6 (()) g/dL Thyroperoxidase Ab (<9) IU/mL Thyroglobulin Antibody (< OR = 1) IU/mL Laboratory Results - last 24 hr 11/10/16 11/13/16 11/14/16 15:30 04:57 17:48 WBC RBC Hgb Hct MCV MCH MCHC RDW Plt Count MPV Neut % (Auto) Lymph % (Auto) Holt % (Auto) Eos % (Auto) Baso % (Auto) Neut # Lymph # Holt # Eos # Baso # Neutrophils % (Manual) Band Neutrophils % Lymphocytes % (Manual) Monocytes % (Manual) Platelet Estimate RBC Morphology Puncture Site pCO2 pO2 HCO3 ABG pH ABG Total CO2 ABG O2 Saturation ABG Base Excess ABG Hemoglobin ABG Carboxyhemoglobin POC ABG HHb (Measured) ABG Methemoglobin Chaz Test A-a O2 Difference Respiratory Index Hgb O2 Saturation Mechanical Rate FiO2 Tidal Volume PEEP Sodium Potassium Chloride Carbon Dioxide Anion Gap BUN Creatinine Est GFR ( Amer) Est GFR (Non-Af Amer) POC Glucose (mg/dL) 302 H Random Glucose Calcium Phosphorus Magnesium Total Bilirubin AST ALT Alkaline Phosphatase Total Protein Albumin Globulin Albumin/Globulin Ratio Urine Color Urine Clarity Urine pH Ur Specific [place] Urine Protein Urine Glucose (UA) Urine Ketones Urine Blood Urine Nitrate Urine Bilirubin Urine Urobilinogen Ur Leukocyte Esterase Urine WBC (Auto) Urine Yeast (Budding) Fluid Albumin 0.6 Thyroperoxidase Ab <1 Thyroglobulin Antibody <1 11/14/16 11/15/16 11/15/16 23:42 04:30 05:38 WBC RBC Hgb Hct MCV MCH MCHC RDW Plt Count MPV Neut % (Auto) Lymph % (Auto) Holt % (Auto) Eos % (Auto) Baso % (Auto) Neut # Lymph # Holt # Eos # Baso # Neutrophils % (Manual) Band Neutrophils % Lymphocytes % (Manual) Monocytes % (Manual) Platelet Estimate RBC Morphology Puncture Site Rr pCO2 61 H pO2 76 L HCO3 31.6 H ABG pH 7.38 ABG Total CO2 38.0 H ABG O2 Saturation 97.8 ABG Base Excess 8.7 H ABG Hemoglobin 13.7 ABG Carboxyhemoglobin 2.3 H POC ABG HHb (Measured) 2.1 ABG Methemoglobin 0.9 Chaz Test Pos A-a O2 Difference 204.0 Respiratory Index 2.7 Hgb O2 Saturation 94.7 L Mechanical Rate 14 FiO2 50.0 Tidal Volume 500 PEEP 5 Sodium Potassium Chloride Carbon Dioxide Anion Gap BUN Creatinine Est GFR ( Amer) Est GFR (Non-Af Amer) POC Glucose (mg/dL) 282 H < 20 L* Random Glucose Calcium Phosphorus Magnesium Total Bilirubin AST ALT Alkaline Phosphatase Total Protein Albumin Globulin Albumin/Globulin Ratio Urine Color Urine Clarity Urine pH Ur Specific [place] Urine Protein Urine Glucose (UA) Urine Ketones Urine Blood Urine Nitrate Urine Bilirubin Urine Urobilinogen Ur Leukocyte Esterase Urine WBC (Auto) Urine Yeast (Budding) Fluid Albumin Thyroperoxidase Ab Thyroglobulin Antibody 11/15/16 11/15/16 11/15/16 05:41 06:30 12:49 WBC 17.2 H D RBC 3.99 Hgb 11.4 Hct 36.5 MCV 91.5 MCH 28.6 MCHC 31.2 L RDW 14.7 H Plt Count 172 MPV 10.4 Neut % (Auto) 90.5 H Lymph % (Auto) 5.1 L Holt % (Auto) 4.1 Eos % (Auto) 0.0 Baso % (Auto) 0.3 Neut # 15.5 H Lymph # 0.9 L Holt # 0.7 Eos # 0.0 Baso # 0.1 Neutrophils % (Manual) 85 H Band Neutrophils % 3 H Lymphocytes % (Manual) 10 L Monocytes % (Manual) 2 Platelet Estimate Normal RBC Morphology Normal Puncture Site pCO2 pO2 HCO3 ABG pH ABG Total CO2 ABG O2 Saturation ABG Base Excess ABG Hemoglobin ABG Carboxyhemoglobin POC ABG HHb (Measured) ABG Methemoglobin Chaz Test A-a O2 Difference Respiratory Index Hgb O2 Saturation Mechanical Rate FiO2 Tidal Volume PEEP Sodium 152 H Potassium 3.1 L Chloride 107 Carbon Dioxide 35 H Anion Gap 13 BUN 39 H Creatinine 0.7 Est GFR ( Amer) > 60 Est GFR (Non-Af Amer) > 60 POC Glucose (mg/dL) 267 H 288 H Random Glucose 229 H Calcium 9.1 Phosphorus 3.1 Magnesium 2.3 Total Bilirubin 1.1 AST 20 ALT 37 Alkaline Phosphatase 77 Total Protein 5.5 L Albumin 2.8 L Globulin 2.8 Albumin/Globulin Ratio 1.0 Urine Color Urine Clarity Urine pH Ur Specific [place] Urine Protein Urine Glucose (UA) Urine Ketones Urine Blood Urine Nitrate Urine Bilirubin Urine Urobilinogen Ur Leukocyte Esterase Urine WBC (Auto) Urine Yeast (Budding) Fluid Albumin Thyroperoxidase Ab Thyroglobulin Antibody 11/15/16 13:25 WBC RBC Hgb Hct MCV MCH MCHC RDW Plt Count MPV Neut % (Auto) Lymph % (Auto) Holt % (Auto) Eos % (Auto) Baso % (Auto) Neut # Lymph # Holt # Eos # Baso # Neutrophils % (Manual) Band Neutrophils % Lymphocytes % (Manual) Monocytes % (Manual) Platelet Estimate RBC Morphology Puncture Site pCO2 pO2 HCO3 ABG pH ABG Total CO2 ABG O2 Saturation ABG Base Excess ABG Hemoglobin ABG Carboxyhemoglobin POC ABG HHb (Measured) ABG Methemoglobin Chaz Test A-a O2 Difference Respiratory Index Hgb O2 Saturation Mechanical Rate FiO2 Tidal Volume PEEP Sodium Potassium Chloride Carbon Dioxide Anion Gap BUN Creatinine Est GFR ( Amer) Est GFR (Non-Af Amer) POC Glucose (mg/dL) Random Glucose Calcium Phosphorus Magnesium Total Bilirubin AST ALT Alkaline Phosphatase Total Protein Albumin Globulin Albumin/Globulin Ratio Urine Color Yellow Urine Clarity Hazy Urine pH 6.0 Ur Specific [place] 1.028 Urine Protein Negative Urine Glucose (UA) 3+ H Urine Ketones Negative Urine Blood Negative Urine Nitrate Negative Urine Bilirubin Negative Urine Urobilinogen 4.0 H Ur Leukocyte Esterase Neg Urine WBC (Auto) 3 Urine Yeast (Budding) Many H Fluid Albumin Thyroperoxidase Ab Thyroglobulin Antibody Attending/Attestation - Attestation I have personally seen and examined this patient.: Yes I have fully participated in the care of the patient.: Yes I have reviewed all pertinent clinical information: Yes Notes (Text): 11/15/16 16:07 Patient seen and examined in the morning. Clinically deteriorating. she was very communicative this past monday. Still on a. fib, rythm changs to a. fibe/flutter, on cardizem drip, add cardizem po. minimal secretions, but review of CT scan of the chest done over the weekend shows possible loculated effusion and lung collapse. bronchoscopy done with no occlusion, moderate amount of thick white-green mucosa in deep bronchi, sample suctioned and sent to lab. Started patient on meropenem and vancomycin, bal sent , ua sent. Spoke to Ct for possible VATS. Decrease steroids to 10 mg IV q12h.
[2016-11-15] MEDS: Enoxaparin 120 mg Syringe SC SCH (21:21)
[2016-11-15] MEDS ORDERED: MethylPREDNISolone 40 mg Vial IVP SCH (22:00)
--- NOTE | 2016-11-15 22:14 | CP.PCM.PN ---
Subjective - Date & Time of Evaluation Date of Evaluation: 11/15/16 Time of Evaluation: 22:11 - Subjective Subjective: uncontrolled IDDM Objective - Vital Signs/Intake and Output Vital Signs (last 24 hours): Temp Pulse Resp BP Pulse Ox 100.1 F H 97 H 14 151/79 H 98 11/15/16 16:00 11/15/16 22:00 11/15/16 22:00 11/15/16 22:00 11/15/16 20:00 Intake and Output: 11/15/16 11/16/16 18:59 06:59 Intake Total 1280 490 Output Total 800 375 Balance 480 115 - Medications Medications: Current Medications Acetaminophen (Tylenol 650mg/20.3ml Solution Ud) 650 mg GT Q6 PRN PRN Reason: Fever >100.4 F Last Admin: 11/14/16 20:29 Dose: 650 mg Acetazolamide (Diamox 500 Mg Inj) 500 mg IV Q8H CRISTOBAL Stop: 11/16/16 07:01 Last Admin: 11/15/16 15:12 Dose: 500 mg Amiodarone HCl (Cordarone) 200 mg PO Q8H CRISTOBAL Last Admin: 11/15/16 18:19 Dose: 200 mg Diltiazem HCl (Cardizem) 60 mg PO Q6 CRISTOBAL Last Admin: 11/15/16 18:19 Dose: 60 mg Enoxaparin Sodium (Lovenox) 110 mg SC Q12 CRISTOBAL Last Admin: 11/15/16 21:21 Dose: 110 mg Propofol (Diprivan) 100 mls @ 3.493 mls/hr IV .Q24H PRN; Protocol; 5 MCG/KG/MIN PRN Reason: TITRATE PER MD ORDER Last Titration: 11/14/16 07:00 Dose: 0 mcg/kg/min Diltiazem HCl 125 mg/ Sodium (Chloride) 125 mls @ 5 mls/hr IV .Q24H CRISTOBAL; 5 MG/ HR PRN Reason: Protocol Last Admin: 11/15/16 15:00 Dose: 10 mls/hr Imipenem/Cilastatin Sodium 1, (000 mg/ Sodium Chloride) 250 mls @ 250 mls/hr IVPB Q8H CRISTOBAL Last Admin: 11/15/16 20:29 Dose: 250 mls/hr Vancomycin HCl 1,500 mg/ (Sodium Chloride) 500 mls @ 250 mls/hr IVPB Q12H [facility] Last Admin: 11/15/16 15:14 Dose: 250 mls/hr Insulin Glargine (Lantus) 15 unit SC 0800,2000 [facility] Last Admin: 11/15/16 20:28 Dose: 15 units Insulin Human Regular (Novolin R) 0 unit SC Q6 [facility] PRN Reason: Protocol Last Admin: 11/15/16 18:20 Dose: 4 unit Methimazole (Tapazole) 10 mg PO BID [facility] Last Admin: 11/15/16 18:20 Dose: 10 mg Methylprednisolone (Solu-Medrol) 10 mg IVP Q12 [facility] Last Admin: 11/15/16 21:20 Dose: 10 mg Metoprolol Tartrate (Lopressor) 2.5 mg IVP Q6H [facility] Last Admin: 11/15/16 20:29 Dose: 2.5 mg Nystatin (Mycostatin Cream) 0 ea TOP TID [facility] Last Admin: 11/15/16 18:24 Dose: 1 applic Pantoprazole Sodium (Protonix Inj) 40 mg IVP DAILY [facility] Last Admin: 11/15/16 10:09 Dose: 40 mg Senna/Docusate Sodium (Senokot S 50 Mg-8.6 Mg) 1 tab PO BID [facility] Last Admin: 11/15/16 18:20 Dose: 1 tab Vitamin A (Vitamin A & D Oint Ud Foilpak) 1 ea TOP BID [facility] Last Admin: 11/15/16 18:23 Dose: 1 ea - Labs Labs: 11/15/16 06:30 11/15/16 06:30 PT 12.0 SECONDS (9.7-12.2) 11/13/16 04:57 INR 1.1 11/13/16 04:57 APTT 38 SECONDS (21-34) H D 11/13/16 04:57 Assessment and Plan (1) Diabetes mellitus, insulin dependent (IDDM), uncontrolled Assessment & Plan: Endocrine consult reason for consult: uncontrolled diabetes source : chrart review , pt awake , alert with OGT tube for bleeding unable to give history & as per chart review poor historian is 61 y/o admitted for a fib with rapid venttirucular resonse & DKA / bilateral lower extremities cellulites ,pt was intubated & also started on insulin drip glucose on admission 1023 . also was started on steroid 40 mg po bid , endocrine was contacted yesterday 11/12 for uncontrolled IDDM glucose in 300- 400 , lantus was changed to 10 bid & d/c novolog coverage high dose , start humalin R low dose coverage q6h & start humalin R 4 units q6h while on continous feeding . & also pt with hyperthyroidism started on tapazole 5 mg po tid blood glucose log : 200 -300 , now on steroid 10 mg bid NO hypoglycemia Allergy NKDA Past medical history : HTN , pedal edema Past surgical history : not documented Psychiatry history : (+) psychiatry disorder Social history : (+)smoking , ETOH use , illicit drug use Family history : unknown ROS: Constitutional: no fever ,tiredness/weakness .HEENT: no earache, change in voice .Respiratory: no cough, sob . CVS :no chest pain, no palpitations . Abdomen : no abdominal pain, no nausea /vomiting , no change bowel movement . STEMHOLE BORER : no light-headedness, dizziness. Extremities : (+) edema , no tremors . Skin: no itching, no rash Physical exam Well developed intubated , on continuos feeding bp 151/79 pulse 93 , T 101.1 HEENT: norm cephalic, atraumatic , no lid lag , no exophthalmos , mild stare NECK: supple, no palpable lymphadenopathy THYROID: unable to palpable thyroid , not tender CHEST: fair air entry, bilateral, CVS: S1,S2 , ABDOMEN: bowel sound present, benign, obese, no wide purple striae , no bruises EXTREMITIES: bilateral hyper pigmented skin with edema, clubbing or cyanosis, no palpable hand tremors Skin : acanthosis nigricans lab: thyroid antibodies (-) tsh < 0.02 ,ft4 2.31 , t4 12.1 , a1c 14 , wbc 10.4 Assessment uncontrolled IDDM steroids induced hyperglycemia hyperthyroidisim with afib , on cardiazem & lopressor bilateral cellutitis a fib bleeding /fever /sepsis obesity Plan -increase lantus 17 bid decrease humalin R low dose coverage q6h resume humalin R 4 units q6h if glucose >200 continue tapazole 10 mg po bid obtain TSH , free t3& ft4 Status: Chronic (2) Hyperthyroidism Status: Chronic (3) Atrial fibrillation with rapid ventricular response Status: Acute (4) Bilateral lower leg cellulitis Status: Acute
[2016-11-15] MEDS ORDERED: (Novolin R) Insulin Human Regular 100 units/ml vial SC SCH (22:21)
[2016-11-15] MEDS ORDERED: (Lantus) Insulin Glargine, Recombinant SC SCH (22:26)
[2016-11-16] MEDS: Metoprolol 1 mg/ml Inj IVP SCH ×2 (02:13→08:58)
[2016-11-16] MEDS: (Novolin R) Insulin Human Regular 100 units/ml vial SC SCH ×3 (05:32→19:03)
[2016-11-16 05:51] LABS: ABG ALLEN TEST POS; ABG MECHANICAL RATE 14; ARTERIAL BLOOD HGB O2 SAT 96.9 % (95.0-98.0); ATERIAL BLOOD GAS PEEP 5; CARBOXYHEMOGLOBIN 1.6 % (0.5-1.5); DRAW SITE RRAD; HHB 0.4 % (0.0-5.0); METHEMOGLOBIN 1.1 % (0.0-3.0)
[2016-11-16 06:05] LABS: BASO % 0.2 % (0.0-2.0); EOS % 0.1 % (0.0-4.0); HEMATOCRIT 30.2 % (34.0-47.0); LYMPH # 0.8 K/uL (1.0-4.3); LYMPH % 7.1 % (20.0-40.0); MEAN CELL VOLUME 92.6 fL (81.0-99.0); MEAN CORPUSCULAR HEMOGLOBIN 28.6 pg (27.0-31.0); MEAN CORPUSCULAR HGB CONC 30.9 g/dL (33.0-37.0); MEAN PLATELET VOLUME 10.4 fL (7.2-11.7); MONO # 0.8 K/uL (0.0-0.8); MONO % 6.8 % (0.0-10.0); PLATELET COUNT 151 K/uL (130-400); RED CELL DISTRIBUTION WIDTH 15.2 % (11.5-14.5); WHITE BLOOD COUNT 11.6 K/uL (4.8-10.8)
[2016-11-16 06:19] LABS: CHLORIDE 114 mmol/L (98-107); POTASSIUM 3.3 mmol/L (3.6-5.2); SODIUM 153 mmol/L (132-148)
[2016-11-16 06:21] LABS: GFR AFRICAN-AMERICAN > 60
[2016-11-16 06:22] LABS: ALB/GLOB RATIO 0.8 (1.0-2.1); ALKALINE PHOSPHATASE 63 U/L (38-126); ALT/SGPT 33 U/L (9-52); AST/SGOT 11 U/L (14-36); BILIRUBIN,TOTAL 0.6 mg/dL (0.2-1.3); BLOOD UREA NITROGEN 37 mg/dL (7-17); CARBON DIOXIDE 32 mmol/L (22-30); GLUCOSE,RANDOM 287 mg/dL (65-105); PHOSPHOROUS 2.5 mg/dL (2.5-4.5); TOTAL PROTEIN 5.1 g/dL (6.3-8.3)
[2016-11-16 06:23] LABS: CALCIUM 9.2 mg/dl (8.6-10.4); MAGNESIUM 2.3 mg/dL (1.6-2.3)
[2016-11-16 06:39] LABS: FT3 4.63 pg/mL (2.77-5.27); T4 8.88 ug/dL (5.5-11.0)
[2016-11-16 06:53] LABS: THYROID STIMULATING HORMONE < 0.02 mIU/L (0.46-4.68)
--- NOTE | 2016-11-16 08:11 | CP.CCUPN ---
<Eloina Allen - Last Filed: 11/16/16 13:09> CCU Subjective - Physician Review Subjective (Free Text): 11/08/16 13:06 Pt seen in mild distress requiring intubation. Two large pieces of dried mucus were extracted from the patient's throat obstructing vocal cords. Patient intubated. TLC line was also placed to ensure better IV access. As there is no power of finance attorney or legal guardian, an administrative consent was obtained for central line. An ROS could not be obtained at this time because patient is intubated and sedated. 11/09/16 13:15 Patient seen at beside intubated and sedated. GCS 8T (FiO2 60 PEEP 5 VT 500 RR 16). No acute events overnight per nursing. A fib is rate controlled. Patient is stable. New vent settings after rounds PRVC (FiO2 60, PEEP 5, RR 12 VT 500). ROS couldn't be obtained because patient is intubated and sedated. 11/10/16 16:50 Pt seen and examined in no acute distress. Patient spiked a fever during overnight shift which initially responded to Tylenol and later returned during the morning shift. Patient administered tylenol and cooling blankets. Patient underwent thoracentesis for pleural effusion. Tolerated procedure well. Patient is rate controlled. ROS couldn't be obtained because patient is intubated and sedated. 11/11/16 8:34 Pt seen and examined in no acute distress. Patient seen at beside intubated and sedated. (FiO2 50 PEEP 5 RR 14 VT 500). Patient is awake, but does not follow commands. Patient has low grade fever this morning (T max 100.2, T 99.0-100.2). A fib is rate controlled. Patient is stable. ROS couldn't be obtained because patient was intubated and sedated at the time of evaluation 11/14/16 15:35 Patient seen at bedside in no acute distress. Patient intubated with vent settings of FiO2 50%, RR 14, PEEP 5, TV 500% and is saturating well at 100%. GCS 10T (E4 VT M6). Patient's last dose of propofol was given 11/12. Patient opens eyes spontaneously and moves extremities on her own. CPAP trial was done after morning rounds. Patient was tachycardic prior to morning rounds, but is currently rate controlled. Patient is stable. Patient spiked a fever overnight and is currently having a low grade fever (T max 101.1, T current 99.3). ROS could not be obtained because patient is intubated at time of evaluation. Over the weekend, NGT removed and replaced with OGT with Afrin spray in nose bilaterally. Right sided nasal packing inserted where NGT had been. 11/15/16 15:39 Patient seen at bedside in no acute distress. Patient intubated with vent settings of FiO2 50%, RR 14, PEEP 5, TV 500% and is saturating well at 100%. GCS 10T (E4 VT M6). Patient's last dose of propofol was given 11/12. Patient opens eyes spontaneously and moves extremities on her own. Patient is stable but still lethargic. Patient spiked a fever overnight and has normal temperature now (T max 101, T current 98.4). ROS could not be obtained because patient is intubated and lethargic at time of evaluation. 11/16/16 13:09 Patient seen at bedside in no acute distress. Patient intubated with vent settings of FiO2 50%, RR 14, PEEP 5, TV 500% and is saturating well at 100%. Patient is stable but still lethargic. Patient spiked a fever overnight and has normal temperature now (T max 101.4, T current 101.3). ROS could not be obtained because patient is intubated at time of evaluation. CCU Objective - Vital Signs / Intake & Output Vital Signs (Last 4 hours): Vital Signs Pulse Resp BP Pulse Ox 11/16/16 07:00 84 14 98 11/16/16 06:50 93 H 19 125/56 L 11/16/16 06:17 89 13 99 11/16/16 06:00 70 14 99 11/16/16 05:50 78 14 120/55 L 99 11/16/16 05:16 82 14 99 11/16/16 05:00 89 15 96 11/16/16 04:50 98 H 16 131/65 96 11/16/16 04:14 78 14 98 Intake and Output (Last 8hrs): Intake & Output 11/15/16 11/16/16 11/16/16 22:59 06:59 14:59 Intake Total 1330 1430 60 Output Total 720 950 100 Balance 610 480 -40 Weight 250 lb 7.122 oz Intake: Intake, IV Amount 930 830 10 Right Distal Port 500 Right Proximal Port 80 80 10 Internal Jugular Right Medial Port 350 750 Internal Jugular Tube Feeding 400 400 50 Other 200 Output: Urine 720 950 100 Urethral ([place]) 720 950 100 Other: # Bowel Movements 1 - Physical Exam Head: Positive for: Atraumatic, Normocephalic Pupils: Positive for: PERRL. Negative for: Sluggish, Non-Reactive Extroacular Muscles: Positive for: EOMI. Negative for: Gaze Palsy Conjunctiva: Positive for: Normal. Negative for: Injected, Icteric Mouth: Positive for: Moist Mucous Membranes Neck: Positive for: Normal Range of Motion, Trachea Midline. Negative for: Meningeal Signs, MIDLINE TENDERNESS, Paraspinal Tenderness, JVD, Lymphadenopathy , Bruit, Other Respiratory/Chest: Positive for: Wheezes, Decreased Breath Sounds, Other ( intubated). Negative for: Rales Cardiovascular: Positive for: Irregular Rhythm, Peripheal Pulses Present, Tachycardic. Negative for: Murmurs, Normal S1, S2 Abdomen: Negative for: Tenderness, Distention Upper Extremity: Positive for: Normal Inspection Lower Extremity: Positive for: Edema Neurological: Negative for: Speech Normal Psychiatric: Negative for: Alert, Oriented x 3 - Medications Active Medications: Active Medications Generic Name Dose Route Start Last Admin Trade Name Freq PRN Reason Stop Dose Admin Acetaminophen 650 mg 11/14/16 20:10 11/14/16 20:29 Tylenol 650mg/20.3ml Solution Ud GT 650 mg Q6 PRN Administration Fever >100.4 F Amiodarone HCl 200 mg 11/15/16 18:00 11/16/16 02:14 Cordarone PO 200 mg Q8H CRISTOBAL Administration Diltiazem HCl 60 mg 11/15/16 12:00 11/16/16 06:29 Cardizem PO 60 mg Q6 CRISTOBAL Administration Enoxaparin Sodium 110 mg 11/15/16 22:00 11/15/16 21:21 Lovenox SC 110 mg Q12 CRISTOBAL Administration Propofol 100 mls @ 3.493 mls/hr 11/08/16 08:29 11/14/16 07:00 Diprivan IV 0 mcg/kg/min .Q24H PRN Titration TITRATE PER MD ORDER Protocol 5 MCG/KG/MIN Diltiazem HCl 125 mg/ Sodium 125 mls @ 5 mls/hr 11/14/16 19:00 11/16/16 04:03 Chloride IV 10 mls/hr .Q24H CRISTOBAL Administration Protocol 5 MG/HR Imipenem/Cilastatin Sodium 1, 250 mls @ 250 mls/hr 11/15/16 13:00 11/16/16 05: 12 000 mg/ Sodium Chloride IVPB 250 mls/hr Q8H CRISTOBAL Administration Vancomycin HCl 1,500 mg/ 500 mls @ 250 mls/hr 11/15/16 12:00 11/16/16 00:04 Sodium Chloride IVPB 250 mls/hr Q12H CRISTOBAL Administration Insulin Glargine 17 unit 11/15/16 22:26 Lantus SC 0800,2000 CRISTOBAL Insulin Human Regular 4 unit 11/15/16 22:38 11/16/16 05:32 Novolin R SC 4 unit Q6 CRISTOBAL Administration Protocol Methimazole 10 mg 11/14/16 10:00 11/15/16 18:20 Tapazole PO 10 mg BID CRISTOBAL Administration Methylprednisolone 10 mg 11/15/16 22:00 11/15/16 21:20 Solu-Medrol IVP 10 mg Q12 CRISTOBAL Administration Metoprolol Tartrate 2.5 mg 11/10/16 20:14 11/16/16 02:13 Lopressor IVP 2.5 mg Q6H CRISTOBAL Administration Nystatin 0 ea 11/04/16 18:00 11/15/16 18:24 Mycostatin Cream TOP 1 applic TID CRISTOBAL Administration Pantoprazole Sodium 40 mg 11/04/16 16:45 11/15/16 10:09 Protonix Inj IVP 40 mg DAILY CRISTOBAL Administration Senna/Docusate Sodium 1 tab 11/12/16 11:30 11/15/16 18:20 Senokot S 50 Mg-8.6 Mg PO 1 tab BID CRISTOBAL Administration Vitamin A 1 ea 11/09/16 18:00 11/15/16 18:23 Vitamin A & D Oint Ud Foilpak TOP 1 ea BID CRISTOBAL Administration - Patient Studies Lab Studies: Lab Studies 11/16/16 11/16/16 11/16/16 Range/Units 05:55 05:27 05:15 WBC 11.6 H (4.8-10.8) K/uL RBC 3.26 L (3.80-5.20) Mil/uL Hgb 9.3 L D (11.0-16.0) g/dL Hct 30.2 L (34.0-47.0) % MCV 92.6 (81.0-99.0) fL MCH 28.6 (27.0-31.0) pg MCHC 30.9 L (33.0-37.0) g/dL RDW 15.2 H (11.5-14.5) % Plt Count 151 (130-400) K/uL MPV 10.4 (7.2-11.7) fL Neut % (Auto) 85.8 H (50.0-75.0) % Lymph % (Auto) 7.1 L (20.0-40.0) % Mcmullen % (Auto) 6.8 (0.0-10.0) % Eos % (Auto) 0.1 (0.0-4.0) % Baso % (Auto) 0.2 (0.0-2.0) % Neut # 10.0 H (1.8-7.0) K/uL Lymph # 0.8 L (1.0-4.3) K/uL Mcmullen # 0.8 (0.0-0.8) K/uL Eos # 0.0 (0.0-0.7) K/uL Baso # 0.0 (0.0-0.2) K/uL Neutrophils % (Manual) (50-75) % Band Neutrophils % (0-2) % Lymphocytes % (Manual) (20-40) % Monocytes % (Manual) (0-10) % Platelet Estimate (NORMAL) RBC Morphology Puncture Site Rrad pCO2 48 H (35-45) mm/Hg pO2 129 H (80-100) mm/Hg HCO3 30.2 H (21-28) mmol/L ABG pH 7.43 (7.35-7.45) ABG Total CO2 33.4 H (22-28) mmol/L ABG O2 Saturation 99.6 H (95-98) % ABG Base Excess 6.7 H (-2.0-3.0) mmol/L ABG Hemoglobin 9.0 L (11.7-17.4) g/dL ABG Carboxyhemoglobin 1.6 H (0.5-1.5) % POC ABG HHb (Measured) 0.4 (0.0-5.0) % ABG Methemoglobin 1.1 (0.0-3.0) % Chaz Test Pos A-a O2 Difference 168.0 mm/Hg Respiratory Index 1.3 Hgb O2 Saturation 96.9 (95.0-98.0) % Mechanical Rate 14 FiO2 50.0 % Tidal Volume 500 PEEP 5 Sodium 153 H (132-148) mmol/L Potassium 3.3 L (3.6-5.2) mmol/L Chloride 114 H (98-107) mmol/L Carbon Dioxide 32 H (22-30) mmol/L Anion Gap 10 (10-20) BUN 37 H (7-17) mg/dL Creatinine 0.8 (0.7-1.2) MG/DL Est GFR ( Amer) > 60 Est GFR (Non-Af Amer) > 60 POC Glucose (mg/dL) 282 H (65-110) mg/dL Random Glucose 287 H (65-105) mg/dL Calcium 9.2 (8.6-10.4) mg/dl Phosphorus 2.5 (2.5-4.5) mg/dL Magnesium 2.3 (1.6-2.3) mg/dL Total Bilirubin 0.6 (0.2-1.3) mg/dL AST 11 L D (14-36) U/L ALT 33 (9-52) U/L Alkaline Phosphatase 63 (38-126) U/L Total Protein 5.1 L (6.3-8.3) g/dL Albumin 2.2 L D (3.5-5.0) g/dL Globulin 2.9 (2.2-3.9) gm/dL Albumin/Globulin Ratio 0.8 L (1.0-2.1) Free T4 2.59 H (0.78-2.19) ng/dL Thyroxine (T4) 8.88 (5.5-11.0) ug/dL TSH 3rd Generation < 0.02 L (0.46-4.68) mIU/L Urine Color (YELLOW) Urine Clarity (Clear) Urine pH (5.0-8.0) Ur Specific [place] (1.003-1.030) Urine Protein (NEGATIVE) mg/dL Urine Glucose (UA) (Normal) mg/dL Urine Ketones (NEGATIVE) mg/dL Urine Blood (NEGATIVE) Urine Nitrate (NEGATIVE) Urine Bilirubin (NEGATIVE) Urine Urobilinogen (0.2-1.0) mg/dL Ur Leukocyte Esterase (Negative) Mary/uL Urine WBC (Auto) (0-5) /hpf Urine Yeast (Budding) (NEGATIVE) /hpf Vancomycin Trough 27.6 H (5.0-10.0) ug/mL 11/15/16 11/15/16 11/15/16 Range/Units 23:52 18:07 16:14 WBC (4.8-10.8) K/uL RBC (3.80-5.20) Mil/uL Hgb (11.0-16.0) g/dL Hct (34.0-47.0) % MCV (81.0-99.0) fL MCH (27.0-31.0) pg MCHC (33.0-37.0) g/dL RDW (11.5-14.5) % Plt Count (130-400) K/uL MPV (7.2-11.7) fL Neut % (Auto) (50.0-75.0) % Lymph % (Auto) (20.0-40.0) % Mcmullen % (Auto) (0.0-10.0) % Eos % (Auto) (0.0-4.0) % Baso % (Auto) (0.0-2.0) % Neut # (1.8-7.0) K/uL Lymph # (1.0-4.3) K/uL Mcmullen # (0.0-0.8) K/uL Eos # (0.0-0.7) K/uL Baso # (0.0-0.2) K/uL Neutrophils % (Manual) (50-75) % Band Neutrophils % (0-2) % Lymphocytes % (Manual) (20-40) % Monocytes % (Manual) (0-10) % Platelet Estimate (NORMAL) RBC Morphology Puncture Site pCO2 (35-45) mm/Hg pO2 (80-100) mm/Hg HCO3 (21-28) mmol/L ABG pH (7.35-7.45) ABG Total CO2 (22-28) mmol/L ABG O2 Saturation (95-98) % ABG Base Excess (-2.0-3.0) mmol/L ABG Hemoglobin (11.7-17.4) g/dL ABG Carboxyhemoglobin (0.5-1.5) % POC ABG HHb (Measured) (0.0-5.0) % ABG Methemoglobin (0.0-3.0) % Chaz Test A-a O2 Difference mm/Hg Respiratory Index Hgb O2 Saturation (95.0-98.0) % Mechanical Rate FiO2 % Tidal Volume PEEP Sodium (132-148) mmol/L Potassium (3.6-5.2) mmol/L Chloride (98-107) mmol/L Carbon Dioxide (22-30) mmol/L Anion Gap (10-20) BUN (7-17) mg/dL Creatinine (0.7-1.2) MG/DL Est GFR ( Amer) Est GFR (Non-Af Amer) POC Glucose (mg/dL) 312 H 241 H 216 H (65-110) mg/dL Random Glucose (65-105) mg/dL Calcium (8.6-10.4) mg/dl Phosphorus (2.5-4.5) mg/dL Magnesium (1.6-2.3) mg/dL Total Bilirubin (0.2-1.3) mg/dL AST (14-36) U/L ALT (9-52) U/L Alkaline Phosphatase (38-126) U/L Total Protein (6.3-8.3) g/dL Albumin (3.5-5.0) g/dL Globulin (2.2-3.9) gm/dL Albumin/Globulin Ratio (1.0-2.1) Free T4 (0.78-2.19) ng/dL Thyroxine (T4) (5.5-11.0) ug/dL TSH 3rd Generation (0.46-4.68) mIU/L Urine Color (YELLOW) Urine Clarity (Clear) Urine pH (5.0-8.0) Ur Specific [place] (1.003-1.030) Urine Protein (NEGATIVE) mg/dL Urine Glucose (UA) (Normal) mg/dL Urine Ketones (NEGATIVE) mg/dL Urine Blood (NEGATIVE) Urine Nitrate (NEGATIVE) Urine Bilirubin (NEGATIVE) Urine Urobilinogen (0.2-1.0) mg/dL Ur Leukocyte Esterase (Negative) Mary/uL Urine WBC (Auto) (0-5) /hpf Urine Yeast (Budding) (NEGATIVE) /hpf Vancomycin Trough (5.0-10.0) ug/mL 11/15/16 11/15/16 11/15/16 Range/Units 13:25 12:49 06:30 WBC (4.8-10.8) K/uL RBC (3.80-5.20) Mil/uL Hgb (11.0-16.0) g/dL Hct (34.0-47.0) % MCV (81.0-99.0) fL MCH (27.0-31.0) pg MCHC (33.0-37.0) g/dL RDW (11.5-14.5) % Plt Count (130-400) K/uL MPV (7.2-11.7) fL Neut % (Auto) (50.0-75.0) % Lymph % (Auto) (20.0-40.0) % Mcmullen % (Auto) (0.0-10.0) % Eos % (Auto) (0.0-4.0) % Baso % (Auto) (0.0-2.0) % Neut # (1.8-7.0) K/uL Lymph # (1.0-4.3) K/uL Mcmullen # (0.0-0.8) K/uL Eos # (0.0-0.7) K/uL Baso # (0.0-0.2) K/uL Neutrophils % (Manual) 85 H (50-75) % Band Neutrophils % 3 H (0-2) % Lymphocytes % (Manual) 10 L (20-40) % Monocytes % (Manual) 2 (0-10) % Platelet Estimate Normal (NORMAL) RBC Morphology Normal Puncture Site pCO2 (35-45) mm/Hg pO2 (80-100) mm/Hg HCO3 (21-28) mmol/L ABG pH (7.35-7.45) ABG Total CO2 (22-28) mmol/L ABG O2 Saturation (95-98) % ABG Base Excess (-2.0-3.0) mmol/L ABG Hemoglobin (11.7-17.4) g/dL ABG Carboxyhemoglobin (0.5-1.5) % POC ABG HHb (Measured) (0.0-5.0) % ABG Methemoglobin (0.0-3.0) % Chaz Test A-a O2 Difference mm/Hg Respiratory Index Hgb O2 Saturation (95.0-98.0) % Mechanical Rate FiO2 % Tidal Volume PEEP Sodium (132-148) mmol/L Potassium (3.6-5.2) mmol/L Chloride (98-107) mmol/L Carbon Dioxide (22-30) mmol/L Anion Gap (10-20) BUN (7-17) mg/dL Creatinine (0.7-1.2) MG/DL Est GFR ( Amer) Est GFR (Non-Af Amer) POC Glucose (mg/dL) 288 H (65-110) mg/dL Random Glucose (65-105) mg/dL Calcium (8.6-10.4) mg/dl Phosphorus (2.5-4.5) mg/dL Magnesium (1.6-2.3) mg/dL Total Bilirubin (0.2-1.3) mg/dL AST (14-36) U/L ALT (9-52) U/L Alkaline Phosphatase (38-126) U/L Total Protein (6.3-8.3) g/dL Albumin (3.5-5.0) g/dL Globulin (2.2-3.9) gm/dL Albumin/Globulin Ratio (1.0-2.1) Free T4 (0.78-2.19) ng/dL Thyroxine (T4) (5.5-11.0) ug/dL TSH 3rd Generation (0.46-4.68) mIU/L Urine Color Yellow (YELLOW) Urine Clarity Hazy (Clear) Urine pH 6.0 (5.0-8.0) Ur Specific [place] 1.028 (1.003-1.030) Urine Protein Negative (NEGATIVE) mg/dL Urine Glucose (UA) 3+ H (Normal) mg/dL Urine Ketones Negative (NEGATIVE) mg/dL Urine Blood Negative (NEGATIVE) Urine Nitrate Negative (NEGATIVE) Urine Bilirubin Negative (NEGATIVE) Urine Urobilinogen 4.0 H (0.2-1.0) mg/dL Ur Leukocyte Esterase Neg (Negative) Mary/uL Urine WBC (Auto) 3 (0-5) /hpf Urine Yeast (Budding) Many H (NEGATIVE) /hpf Vancomycin Trough (5.0-10.0) ug/mL Laboratory Results - last 24 hr 11/15/16 11/15/16 11/15/16 06:30 12:49 13:25 WBC RBC Hgb Hct MCV MCH MCHC RDW Plt Count MPV Neut % (Auto) Lymph % (Auto) Mcmullen % (Auto) Eos % (Auto) Baso % (Auto) Neut # Lymph # Mcmullen # Eos # Baso # Neutrophils % (Manual) 85 H Band Neutrophils % 3 H Lymphocytes % (Manual) 10 L Monocytes % (Manual) 2 Platelet Estimate Normal RBC Morphology Normal Puncture Site pCO2 pO2 HCO3 ABG pH ABG Total CO2 ABG O2 Saturation ABG Base Excess ABG Hemoglobin ABG Carboxyhemoglobin POC ABG HHb (Measured) ABG Methemoglobin Chaz Test A-a O2 Difference Respiratory Index Hgb O2 Saturation Mechanical Rate FiO2 Tidal Volume PEEP Sodium Potassium Chloride Carbon Dioxide Anion Gap BUN Creatinine Est GFR ( Amer) Est GFR (Non-Af Amer) POC Glucose (mg/dL) 288 H Random Glucose Calcium Phosphorus Magnesium Total Bilirubin AST ALT Alkaline Phosphatase Total Protein Albumin Globulin Albumin/Globulin Ratio Free T4 Thyroxine (T4) TSH 3rd Generation Urine Color Yellow Urine Clarity Hazy Urine pH 6.0 Ur Specific [place] 1.028 Urine Protein Negative Urine Glucose (UA) 3+ H Urine Ketones Negative Urine Blood Negative Urine Nitrate Negative Urine Bilirubin Negative Urine Urobilinogen 4.0 H Ur Leukocyte Esterase Neg Urine WBC (Auto) 3 Urine Yeast (Budding) Many H Vancomycin Trough 11/15/16 11/15/16 11/15/16 16:14 18:07 23:52 WBC RBC Hgb Hct MCV MCH MCHC RDW Plt Count MPV Neut % (Auto) Lymph % (Auto) Mcmullen % (Auto) Eos % (Auto) Baso % (Auto) Neut # Lymph # Mcmullen # Eos # Baso # Neutrophils % (Manual) Band Neutrophils % Lymphocytes % (Manual) Monocytes % (Manual) Platelet Estimate RBC Morphology Puncture Site pCO2 pO2 HCO3 ABG pH ABG Total CO2 ABG O2 Saturation ABG Base Excess ABG Hemoglobin ABG Carboxyhemoglobin POC ABG HHb (Measured) ABG Methemoglobin Chaz Test A-a O2 Difference Respiratory Index Hgb O2 Saturation Mechanical Rate FiO2 Tidal Volume PEEP Sodium Potassium Chloride Carbon Dioxide Anion Gap BUN Creatinine Est GFR ( Amer) Est GFR (Non-Af Amer) POC Glucose (mg/dL) 216 H 241 H 312 H Random Glucose Calcium Phosphorus Magnesium Total Bilirubin AST ALT Alkaline Phosphatase Total Protein Albumin Globulin Albumin/Globulin Ratio Free T4 Thyroxine (T4) TSH 3rd Generation Urine Color Urine Clarity Urine pH Ur Specific [place] Urine Protein Urine Glucose (UA) Urine Ketones Urine Blood Urine Nitrate Urine Bilirubin Urine Urobilinogen Ur Leukocyte Esterase Urine WBC (Auto) Urine Yeast (Budding) Vancomycin Trough 11/16/16 11/16/16 11/16/16 05:15 05:27 05:55 WBC 11.6 H RBC 3.26 L Hgb 9.3 L D Hct 30.2 L MCV 92.6 MCH 28.6 MCHC 30.9 L RDW 15.2 H Plt Count 151 MPV 10.4 Neut % (Auto) 85.8 H Lymph % (Auto) 7.1 L Mcmullen % (Auto) 6.8 Eos % (Auto) 0.1 Baso % (Auto) 0.2 Neut # 10.0 H Lymph # 0.8 L Mcmullen # 0.8 Eos # 0.0 Baso # 0.0 Neutrophils % (Manual) Band Neutrophils % Lymphocytes % (Manual) Monocytes % (Manual) Platelet Estimate RBC Morphology Puncture Site Rrad pCO2 48 H pO2 129 H HCO3 30.2 H ABG pH 7.43 ABG Total CO2 33.4 H ABG O2 Saturation 99.6 H ABG Base Excess 6.7 H ABG Hemoglobin 9.0 L ABG Carboxyhemoglobin 1.6 H POC ABG HHb (Measured) 0.4 ABG Methemoglobin 1.1 Chaz Test Pos A-a O2 Difference 168.0 Respiratory Index 1.3 Hgb O2 Saturation 96.9 Mechanical Rate 14 FiO2 50.0 Tidal Volume 500 PEEP 5 Sodium 153 H Potassium 3.3 L Chloride 114 H Carbon Dioxide 32 H Anion Gap 10 BUN 37 H Creatinine 0.8 Est GFR ( Amer) > 60 Est GFR (Non-Af Amer) > 60 POC Glucose (mg/dL) 282 H Random Glucose 287 H Calcium 9.2 Phosphorus 2.5 Magnesium 2.3 Total Bilirubin 0.6 AST 11 L D ALT 33 Alkaline Phosphatase 63 Total Protein 5.1 L Albumin 2.2 L D Globulin 2.9 Albumin/Globulin Ratio 0.8 L Free T4 2.59 H Thyroxine (T4) 8.88 TSH 3rd Generation < 0.02 L Urine Color Urine Clarity Urine pH Ur Specific [place] Urine Protein Urine Glucose (UA) Urine Ketones Urine Blood Urine Nitrate Urine Bilirubin Urine Urobilinogen Ur Leukocyte Esterase Urine WBC (Auto) Urine Yeast (Budding) Vancomycin Trough 27.6 H Fingerstick Blood Sugar Results: 282 Review of Systems - Review of Systems Systems not reviewed;Unavailable: Intubated Review of Systems: see subjective Assessment/Plan - Assessment and Plan (Free Text) Assessment: 61 F with history of hyperthyroidism, admitted to ED for hyperglycemia, altered mental status, and a-fib. Patient was admitted to ICU for treatment of DKA and patient continues to be monitored in the ICU. Over the weekend, patient had an episode of epistaxis, which appears to have resolved. Patient's ventilatory status remains unchanged. Patient is s/p bronchoscopy 11/15 ; awaiting pathology read on specimen collection. Plan: Neuro: Neurochecks Q4 GCS 10T (E4 VT M6) Sedation: Propofol 100 cc @ 3.493 cc/hr IV Q24H (5 mcg/kg/min) Cardiovascular: Imagin/26 CT soft tissue neck: no significant evidence of lymphadenopathy, moderately enlarged ET and NG tube. 11/09 Echocardiogram: LVEF 65%, elevated diastolic filling pressures. 11/04 EKG: atrial fibrillation with RVR, PVCs @ 153 bpm Metoprolol 2.5 mg IVP Q6H CRISTOBAL Amiodarone HCl 200 mg PO TID Taper off diltiazem IV and change to PO Diltiazem 60 mg PO Q6 CRISTOBAL Pulmonary: CT Surgery consult - Dr. Avalos - f/u on VATS considerations pleural effusion/loculations found on CTA of chest 11/13 CTA of chest/abdomen/pelvis: suspicious mass lesion at right kidney midpole 4.2 x 4.5. Moderate enlargement of bilateral adrenal gland with right > left. low attenuation nodules. increase in size of left pleural effusion since pervious study. complete collapse of left lower lobe. 2.8 cm low-attenuation lesion at anterior upper portion of spleen. foci of cortical irregularity and lucency in spine and right ribs. cardiomegaly Vent settings: 11/16 FiO2 40%, RR 14, PEEP 5, TV 500 11/15 FiO2 50%, RR 14, PEEP 5, TV 500 11/14 FiO2 50%, RR 14, PEEP 5, TV 500 and is saturating well at 100%. AB/29 pH 7.43, CO2 48, O2 129, HCO3 30.2 11/15 pH 7.38, CO2 61, O2 76, HCO3 31.6 11/14 pH 7.51, CO2 43, O2 198, HCO3 32.9 Imagin/29 CXR: Moderate to severe venous congestion with bibasilar airspace opacities and bilateral pleural effusions 11/15 CXR: no significant interval change 11/14 CXR: biapical thickening with upper lobe granulomatous changes. moderate venous congestion. prominent bibasilar airspace opacities with moderate left and small right pleural effusion 11/13 CXR: small left pleural effusion. congestive change. no infiltrates Solumedrol 10 mg IVP daily Endo: HHS Diabetes - uncontrolled History of Hyperthyroidism T4 2.59 TSH <0.02 Methimazole 10 mg PO BID CRISTOBAL Novolin R 4 unit SC Q6H CRISTOBAL Lantus 20 units 0600 and 2000 CRISTOBAL Accucheck Q6 ACHS GI Tube feeds with free water flushes Fluid differential Pathologist review - few sheets of reactive mesothelial cells. scattered lymphocytes, macrophages, and RBCs negative for malignant cells. mildly inflamed pleural fluid negative for malignant cells. Daily CMP Albumin 2.2 Senna/Docusate 50 mg - DC Vitamin A & D oint UD foilpak 1 ea TOP BID CRISTOBAL : 3200/2125 = 1075 Monitor I/Os Hemphill Inserted Maintain Hemphill care Nephro: BUN/Cr:39/0.7 (41/0.9>39/0.7) Hypernatremia Hypokalemia - repleted Acetazolamide 500 mg IV Q8 [facility] ( 3 doses only) Monitor I/Os Daily CMP Heme: H&H 9.3/30.2 (11.4/36.5 > 9.3/30.2) Daily CBC MSK: 11/10 Duplex scan lower extremity artery: no evidence of deep or superficial vein thrombosis of Right and Left lower extremity. 11/13 CT Lower extremity: soft tissue swelling/stranding suggestive of cellulitis. no evidence of abscess. ID: WBC 11.6 (11.1>17.2>11.6) decrease in white count. Daily CBC Nystatin TOP TID CRISTOBAL Acetaminophen 650 mg HI Q6 PRN temperature >101 F Vancomycin 1500 mg, 500 cc @ 250 cc/hr IVPB Q12H Imipenem/Cilastatin 1 Gm 250 cc @ 250 cc/hr IVPB Q8H CRISTOBAL Prophylaxis DVT: SCDs, Lovenox 110 mg SC Q12 CRISTOBAL Social: Patient may require guardianship as there is no legal appointed guardian to make medical decisions on behalf of patient. <Morena Dean - Last Filed: 11/16/16 15:08> CCU Objective - Vital Signs / Intake & Output Vital Signs (Last 4 hours): Vital Signs Pulse Resp BP Pulse Ox 11/16/16 13:50 88 18 133/55 L 94 L 11/16/16 12:50 85 17 130/58 L 91 L 11/16/16 11:50 91 H 14 128/51 L 95 Intake and Output (Last 8hrs): Intake & Output 11/15/16 11/16/16 11/16/16 22:59 06:59 14:59 Intake Total 1330 1430 60 Output Total 720 950 100 Balance 610 480 -40 Weight 250 lb 7.122 oz Intake: Intake, IV Amount 930 830 10 Right Distal Port 500 Right Proximal Port 80 80 10 Internal Jugular Right Medial Port 350 750 Internal Jugular Tube Feeding 400 400 50 Other 200 Output: Urine 720 950 100 Urethral ([place]) 720 950 100 Other: # Bowel Movements 1 - Medications Active Medications: Active Medications Generic Name Dose Route Start Last Admin Trade Name Freq PRN Reason Stop Dose Admin Acetaminophen 650 mg 11/14/16 20:10 11/16/16 08:59 Tylenol 650mg/20.3ml Solution Ud GT 650 mg Q6 PRN Administration Fever >100.4 F Acetazolamide 500 mg 11/16/16 10:15 11/16/16 13:09 Diamox 500 Mg Inj IV 11/17/16 02:16 500 mg Q8H CRISTOBAL Administration Amiodarone HCl 200 mg 11/15/16 18:00 11/16/16 10:27 Cordarone PO 200 mg Q8H CRISTOBAL Administration Diltiazem HCl 60 mg 11/15/16 12:00 11/16/16 13:09 Cardizem PO 60 mg Q6 CRISTOBAL Administration Enoxaparin Sodium 110 mg 11/15/16 22:00 11/16/16 10:27 Lovenox SC 110 mg Q12 CRISTOBAL Administration Propofol 100 mls @ 3.493 mls/hr 11/08/16 08:29 11/14/16 07:00 Diprivan IV 0 mcg/kg/min .Q24H PRN Titration TITRATE PER MD ORDER Protocol 5 MCG/KG/MIN Diltiazem HCl 125 mg/ Sodium 125 mls @ 5 mls/hr 11/14/16 19:00 11/16/16 10:00 Chloride IV 8 mg/hr .Q24H CRISTOBAL Titration Protocol 5 MG/HR Imipenem/Cilastatin Sodium 1, 250 mls @ 250 mls/hr 11/15/16 13:00 11/16/16 05: 12 000 mg/ Sodium Chloride IVPB 250 mls/hr Q8H [facility] Administration Vancomycin HCl 1,500 mg/ 500 mls @ 250 mls/hr 11/15/16 12:00 11/16/16 13:10 Sodium Chloride IVPB 250 mls/hr Q12H [facility] Administration Insulin Glargine 20 unit 11/16/16 20:00 Lantus SC 0800,2000 [facility] Insulin Human Regular 4 unit 11/15/16 22:38 11/16/16 13:08 Novolin R SC 4 unit Q6 [facility] Administration Protocol Methimazole 10 mg 11/14/16 10:00 11/16/16 10:27 Tapazole PO 10 mg BID [facility] Administration Methylprednisolone 10 mg 11/17/16 10:00 Solu-Medrol IVP DAILY [facility] Metoprolol Succinate 12.5 mg 11/16/16 10:30 Toprol Xl PO DAILY [facility] Nystatin 0 ea 11/04/16 18:00 11/16/16 10:44 Mycostatin Cream TOP 1 applic TID [facility] Administration Pantoprazole Sodium 40 mg 11/04/16 16:45 11/16/16 10:26 Protonix Inj IVP 40 mg DAILY [facility] Administration Sodium Bicarbonate 50 meq 11/16/16 14:30 Sodium Bicarbonate (8.4%) 50 Meq Syringe IVP 11/16/16 14:31 ONCE ONE Vitamin A 1 ea 11/09/16 18:00 11/16/16 10:27 Vitamin A & D Oint Ud Foilpak TOP 1 ea BID [facility] Administration - Patient Studies Lab Studies: Lab Studies 11/16/16 11/16/16 11/16/16 Range/Units 11:58 05:55 05:27 WBC 11.6 H (4.8-10.8) K/uL RBC 3.26 L (3.80-5.20) Mil/uL Hgb 9.3 L D (11.0-16.0) g/dL Hct 30.2 L (34.0-47.0) % MCV 92.6 (81.0-99.0) fL MCH 28.6 (27.0-31.0) pg MCHC 30.9 L (33.0-37.0) g/dL RDW 15.2 H (11.5-14.5) % Plt Count 151 (130-400) K/uL MPV 10.4 (7.2-11.7) fL Neut % (Auto) 85.8 H (50.0-75.0) % Lymph % (Auto) 7.1 L (20.0-40.0) % Mcmullen % (Auto) 6.8 (0.0-10.0) % Eos % (Auto) 0.1 (0.0-4.0) % Baso % (Auto) 0.2 (0.0-2.0) % Neut # 10.0 H (1.8-7.0) K/uL Lymph # 0.8 L (1.0-4.3) K/uL Mcmullen # 0.8 (0.0-0.8) K/uL Eos # 0.0 (0.0-0.7) K/uL Baso # 0.0 (0.0-0.2) K/uL Neutrophils % (Manual) 80 H (50-75) % Lymphocytes % (Manual) 14 L (20-40) % Monocytes % (Manual) 5 (0-10) % Eosinophils % (Manual) 1 (0-4) % Platelet Estimate Normal (NORMAL) Hypochromasia (manual) Slight Poikilocytosis (manual Slight Anisocytosis (manual) Slight Puncture Site pCO2 (35-45) mm/Hg pO2 (80-100) mm/Hg HCO3 (21-28) mmol/L ABG pH (7.35-7.45) ABG Total CO2 (22-28) mmol/L ABG O2 Saturation (95-98) % ABG Base Excess (-2.0-3.0) mmol/L ABG Hemoglobin (11.7-17.4) g/dL ABG Carboxyhemoglobin (0.5-1.5) % POC ABG HHb (Measured) (0.0-5.0) % ABG Methemoglobin (0.0-3.0) % Chaz Test A-a O2 Difference mm/Hg Respiratory Index Hgb O2 Saturation (95.0-98.0) % Mechanical Rate FiO2 % Tidal Volume PEEP Sodium 153 H (132-148) mmol/L Potassium 3.3 L (3.6-5.2) mmol/L Chloride 114 H (98-107) mmol/L Carbon Dioxide 32 H (22-30) mmol/L Anion Gap 10 (10-20) BUN 37 H (7-17) mg/dL Creatinine 0.8 (0.7-1.2) MG/DL Est GFR ( Amer) > 60 Est GFR (Non-Af Amer) > 60 POC Glucose (mg/dL) 353 H 282 H (65-110) mg/dL Random Glucose 287 H (65-105) mg/dL Calcium 9.2 (8.6-10.4) mg/dl Phosphorus 2.5 (2.5-4.5) mg/dL Magnesium 2.3 (1.6-2.3) mg/dL Total Bilirubin 0.6 (0.2-1.3) mg/dL AST 11 L D (14-36) U/L ALT 33 (9-52) U/L Alkaline Phosphatase 63 (38-126) U/L Total Protein 5.1 L (6.3-8.3) g/dL Albumin 2.2 L D (3.5-5.0) g/dL Globulin 2.9 (2.2-3.9) gm/dL Albumin/Globulin Ratio 0.8 L (1.0-2.1) Free T4 2.59 H (0.78-2.19) ng/dL Thyroxine (T4) 8.88 (5.5-11.0) ug/dL TSH 3rd Generation < 0.02 L (0.46-4.68) mIU/L Vancomycin Trough 27.6 H (5.0-10.0) ug/mL 11/16/16 11/15/16 11/15/16 Range/Units 05:15 23:52 18:07 WBC (4.8-10.8) K/uL RBC (3.80-5.20) Mil/uL Hgb (11.0-16.0) g/dL Hct (34.0-47.0) % MCV (81.0-99.0) fL MCH (27.0-31.0) pg MCHC (33.0-37.0) g/dL RDW (11.5-14.5) % Plt Count (130-400) K/uL MPV (7.2-11.7) fL Neut % (Auto) (50.0-75.0) % Lymph % (Auto) (20.0-40.0) % Mcmullen % (Auto) (0.0-10.0) % Eos % (Auto) (0.0-4.0) % Baso % (Auto) (0.0-2.0) % Neut # (1.8-7.0) K/uL Lymph # (1.0-4.3) K/uL Mcmullen # (0.0-0.8) K/uL Eos # (0.0-0.7) K/uL Baso # (0.0-0.2) K/uL Neutrophils % (Manual) (50-75) % Lymphocytes % (Manual) (20-40) % Monocytes % (Manual) (0-10) % Eosinophils % (Manual) (0-4) % Platelet Estimate (NORMAL) Hypochromasia (manual) Poikilocytosis (manual Anisocytosis (manual) Puncture Site Rrad pCO2 48 H (35-45) mm/Hg pO2 129 H (80-100) mm/Hg HCO3 30.2 H (21-28) mmol/L ABG pH 7.43 (7.35-7.45) ABG Total CO2 33.4 H (22-28) mmol/L ABG O2 Saturation 99.6 H (95-98) % ABG Base Excess 6.7 H (-2.0-3.0) mmol/L ABG Hemoglobin 9.0 L (11.7-17.4) g/dL ABG Carboxyhemoglobin 1.6 H (0.5-1.5) % POC ABG HHb (Measured) 0.4 (0.0-5.0) % ABG Methemoglobin 1.1 (0.0-3.0) % Chaz Test Pos A-a O2 Difference 168.0 mm/Hg Respiratory Index 1.3 Hgb O2 Saturation 96.9 (95.0-98.0) % Mechanical Rate 14 FiO2 50.0 % Tidal Volume 500 PEEP 5 Sodium (132-148) mmol/L Potassium (3.6-5.2) mmol/L Chloride (98-107) mmol/L Carbon Dioxide (22-30) mmol/L Anion Gap (10-20) BUN (7-17) mg/dL Creatinine (0.7-1.2) MG/DL Est GFR ( Amer) Est GFR (Non-Af Amer) POC Glucose (mg/dL) 312 H 241 H (65-110) mg/dL Random Glucose (65-105) mg/dL Calcium (8.6-10.4) mg/dl Phosphorus (2.5-4.5) mg/dL Magnesium (1.6-2.3) mg/dL Total Bilirubin (0.2-1.3) mg/dL AST (14-36) U/L ALT (9-52) U/L Alkaline Phosphatase (38-126) U/L Total Protein (6.3-8.3) g/dL Albumin (3.5-5.0) g/dL Globulin (2.2-3.9) gm/dL Albumin/Globulin Ratio (1.0-2.1) Free T4 (0.78-2.19) ng/dL Thyroxine (T4) (5.5-11.0) ug/dL TSH 3rd Generation (0.46-4.68) mIU/L Vancomycin Trough (5.0-10.0) ug/mL 11/15/16 Range/Units 16:14 WBC (4.8-10.8) K/uL RBC (3.80-5.20) Mil/uL Hgb (11.0-16.0) g/dL Hct (34.0-47.0) % MCV (81.0-99.0) fL MCH (27.0-31.0) pg MCHC (33.0-37.0) g/dL RDW (11.5-14.5) % Plt Count (130-400) K/uL MPV (7.2-11.7) fL Neut % (Auto) (50.0-75.0) % Lymph % (Auto) (20.0-40.0) % Mcmullen % (Auto) (0.0-10.0) % Eos % (Auto) (0.0-4.0) % Baso % (Auto) (0.0-2.0) % Neut # (1.8-7.0) K/uL Lymph # (1.0-4.3) K/uL Mcmullen # (0.0-0.8) K/uL Eos # (0.0-0.7) K/uL Baso # (0.0-0.2) K/uL Neutrophils % (Manual) (50-75) % Lymphocytes % (Manual) (20-40) % Monocytes % (Manual) (0-10) % Eosinophils % (Manual) (0-4) % Platelet Estimate (NORMAL) Hypochromasia (manual) Poikilocytosis (manual Anisocytosis (manual) Puncture Site pCO2 (35-45) mm/Hg pO2 (80-100) mm/Hg HCO3 (21-28) mmol/L ABG pH (7.35-7.45) ABG Total CO2 (22-28) mmol/L ABG O2 Saturation (95-98) % ABG Base Excess (-2.0-3.0) mmol/L ABG Hemoglobin (11.7-17.4) g/dL ABG Carboxyhemoglobin (0.5-1.5) % POC ABG HHb (Measured) (0.0-5.0) % ABG Methemoglobin (0.0-3.0) % Chaz Test A-a O2 Difference mm/Hg Respiratory Index Hgb O2 Saturation (95.0-98.0) % Mechanical Rate FiO2 % Tidal Volume PEEP Sodium (132-148) mmol/L Potassium (3.6-5.2) mmol/L Chloride (98-107) mmol/L Carbon Dioxide (22-30) mmol/L Anion Gap (10-20) BUN (7-17) mg/dL Creatinine (0.7-1.2) MG/DL Est GFR ( Amer) Est GFR (Non-Af Amer) POC Glucose (mg/dL) 216 H (65-110) mg/dL Random Glucose (65-105) mg/dL Calcium (8.6-10.4) mg/dl Phosphorus (2.5-4.5) mg/dL Magnesium (1.6-2.3) mg/dL Total Bilirubin (0.2-1.3) mg/dL AST (14-36) U/L ALT (9-52) U/L Alkaline Phosphatase (38-126) U/L Total Protein (6.3-8.3) g/dL Albumin (3.5-5.0) g/dL Globulin (2.2-3.9) gm/dL Albumin/Globulin Ratio (1.0-2.1) Free T4 (0.78-2.19) ng/dL Thyroxine (T4) (5.5-11.0) ug/dL TSH 3rd Generation (0.46-4.68) mIU/L Vancomycin Trough (5.0-10.0) ug/mL Laboratory Results - last 24 hr 11/15/16 11/15/16 11/15/16 16:14 18:07 23:52 WBC RBC Hgb Hct MCV MCH MCHC RDW Plt Count MPV Neut % (Auto) Lymph % (Auto) Mcmullen % (Auto) Eos % (Auto) Baso % (Auto) Neut # Lymph # Mcmullen # Eos # Baso # Neutrophils % (Manual) Lymphocytes % (Manual) Monocytes % (Manual) Eosinophils % (Manual) Platelet Estimate Hypochromasia (manual) Poikilocytosis (manual Anisocytosis (manual) Puncture Site pCO2 pO2 HCO3 ABG pH ABG Total CO2 ABG O2 Saturation ABG Base Excess ABG Hemoglobin ABG Carboxyhemoglobin POC ABG HHb (Measured) ABG Methemoglobin Chaz Test A-a O2 Difference Respiratory Index Hgb O2 Saturation Mechanical Rate FiO2 Tidal Volume PEEP Sodium Potassium Chloride Carbon Dioxide Anion Gap BUN Creatinine Est GFR ( Amer) Est GFR (Non-Af Amer) POC Glucose (mg/dL) 216 H 241 H 312 H Random Glucose Calcium Phosphorus Magnesium Total Bilirubin AST ALT Alkaline Phosphatase Total Protein Albumin Globulin Albumin/Globulin Ratio Free T4 Thyroxine (T4) TSH 3rd Generation Vancomycin Trough 11/16/16 11/16/16 11/16/16 05:15 05:27 05:55 WBC 11.6 H RBC 3.26 L Hgb 9.3 L D Hct 30.2 L MCV 92.6 MCH 28.6 MCHC 30.9 L RDW 15.2 H Plt Count 151 MPV 10.4 Neut % (Auto) 85.8 H Lymph % (Auto) 7.1 L Mcmullen % (Auto) 6.8 Eos % (Auto) 0.1 Baso % (Auto) 0.2 Neut # 10.0 H Lymph # 0.8 L Mcmullen # 0.8 Eos # 0.0 Baso # 0.0 Neutrophils % (Manual) 80 H Lymphocytes % (Manual) 14 L Monocytes % (Manual) 5 Eosinophils % (Manual) 1 Platelet Estimate Normal Hypochromasia (manual) Slight Poikilocytosis (manual Slight Anisocytosis (manual) Slight Puncture Site Rrad pCO2 48 H pO2 129 H HCO3 30.2 H ABG pH 7.43 ABG Total CO2 33.4 H ABG O2 Saturation 99.6 H ABG Base Excess 6.7 H ABG Hemoglobin 9.0 L ABG Carboxyhemoglobin 1.6 H POC ABG HHb (Measured) 0.4 ABG Methemoglobin 1.1 Chaz Test Pos A-a O2 Difference 168.0 Respiratory Index 1.3 Hgb O2 Saturation 96.9 Mechanical Rate 14 FiO2 50.0 Tidal Volume 500 PEEP 5 Sodium 153 H Potassium 3.3 L Chloride 114 H Carbon Dioxide 32 H Anion Gap 10 BUN 37 H Creatinine 0.8 Est GFR ( Amer) > 60 Est GFR (Non-Af Amer) > 60 POC Glucose (mg/dL) 282 H Random Glucose 287 H Calcium 9.2 Phosphorus 2.5 Magnesium 2.3 Total Bilirubin 0.6 AST 11 L D ALT 33 Alkaline Phosphatase 63 Total Protein 5.1 L Albumin 2.2 L D Globulin 2.9 Albumin/Globulin Ratio 0.8 L Free T4 2.59 H Thyroxine (T4) 8.88 TSH 3rd Generation < 0.02 L Vancomycin Trough 27.6 H 11/16/16 11:58 WBC RBC Hgb Hct MCV MCH MCHC RDW Plt Count MPV Neut % (Auto) Lymph % (Auto) Mcmullen % (Auto) Eos % (Auto) Baso % (Auto) Neut # Lymph # Mcmullen # Eos # Baso # Neutrophils % (Manual) Lymphocytes % (Manual) Monocytes % (Manual) Eosinophils % (Manual) Platelet Estimate Hypochromasia (manual) Poikilocytosis (manual Anisocytosis (manual) Puncture Site pCO2 pO2 HCO3 ABG pH ABG Total CO2 ABG O2 Saturation ABG Base Excess ABG Hemoglobin ABG Carboxyhemoglobin POC ABG HHb (Measured) ABG Methemoglobin Chaz Test A-a O2 Difference Respiratory Index Hgb O2 Saturation Mechanical Rate FiO2 Tidal Volume PEEP Sodium Potassium Chloride Carbon Dioxide Anion Gap BUN Creatinine Est GFR ( Amer) Est GFR (Non-Af Amer) POC Glucose (mg/dL) 353 H Random Glucose Calcium Phosphorus Magnesium Total Bilirubin AST ALT Alkaline Phosphatase Total Protein Albumin Globulin Albumin/Globulin Ratio Free T4 Thyroxine (T4) TSH 3rd Generation Vancomycin Trough Attending/Attestation - Attestation I have personally seen and examined this patient.: Yes I have fully participated in the care of the patient.: Yes I have reviewed all pertinent clinical information: Yes Notes (Text): 11/16/16 14:54 Patient seen and examined in am. A little bit more awake than yesterday, grimacing to pain, opened eyes to voice some times. wbc count has decreased, spiked fever. minimal secretions through ET tube, bronchoscopy again today to clean secretions , as sooon as bronchoscopy reached left main bronchus lots of secretions visualized., more than yesterday, cleaned, no intrabronchial obstructions visualized. x-ray today shows LLL more opened compared to yesterday (after first bronchoscopy).
[2016-11-16 08:16] LABS: EOSINOPHIL 1 % (0-4); NEUTROPHIL 80 % (50-75); TOTAL CELLS COUNTED 100
[2016-11-16] MEDS ORDERED: Potassium Chloride 20 mEq/15 ml LIQ UD PO ONE ×3 (08:30→16:30)
--- NOTE | 2016-11-16 08:52 | RAD ---
HISTORY: intubated COMPARISON: 11/15/2016 FINDINGS: LUNGS: Lines and tubes stable position. Moderate to severe venous congestion with bibasilar airspace opacities and bilateral pleural effusions. PLEURA: As above. CARDIOVASCULAR: Cardiomegaly. Calcification at the aortic knob. OSSEOUS STRUCTURES: No significant abnormalities. VISUALIZED UPPER ABDOMEN: Normal. OTHER FINDINGS: None. IMPRESSION: Lines and tubes stable position. Moderate to severe venous congestion with bibasilar airspace opacities and bilateral pleural effusions. Cardiomegaly. Calcification at the aortic knob.
[2016-11-16] MEDS: Acetaminophen 650mg/20.3ml solution UD GT PRN (08:59)
--- NOTE | 2016-11-16 09:19 | CP.PCM.PN ---
Subjective - Date & Time of Evaluation Date of Evaluation: 11/16/16 Time of Evaluation: 07:30 - Subjective Subjective: patient seen and examined in the intensive care unit. Intubated on ventilatory support Sedated but responds by opening eyes Status post bronchoscopy with copious thick secretions Remains febrile Seen by surgery Objective - Vital Signs/Intake and Output Vital Signs (last 24 hours): Temp Pulse Resp BP Pulse Ox 98.3 F 84 14 125/56 L 98 11/16/16 04:00 11/16/16 07:00 11/16/16 07:00 11/16/16 06:50 11/16/16 07:00 Intake and Output: 11/16/16 11/16/16 06:59 18:59 Intake Total 1920 60 Output Total 1325 100 Balance 595 -40 - Medications Medications: Current Medications Acetaminophen (Tylenol 650mg/20.3ml Solution Ud) 650 mg GT Q6 PRN PRN Reason: Fever >100.4 F Last Admin: 11/16/16 08:59 Dose: 650 mg Amiodarone HCl (Cordarone) 200 mg PO Q8H [facility] Last Admin: 11/16/16 02:14 Dose: 200 mg Diltiazem HCl (Cardizem) 60 mg PO Q6 [facility] Last Admin: 11/16/16 06:29 Dose: 60 mg Enoxaparin Sodium (Lovenox) 110 mg SC Q12 [facility] Last Admin: 11/15/16 21:21 Dose: 110 mg Propofol (Diprivan) 100 mls @ 3.493 mls/hr IV .Q24H PRN; Protocol; 5 MCG/KG/MIN PRN Reason: TITRATE PER MD ORDER Last Titration: 11/14/16 07:00 Dose: 0 mcg/kg/min Diltiazem HCl 125 mg/ Sodium (Chloride) 125 mls @ 5 mls/hr IV .Q24H [facility]; 5 MG/ HR PRN Reason: Protocol Last Admin: 11/16/16 04:03 Dose: 10 mls/hr Imipenem/Cilastatin Sodium 1, (000 mg/ Sodium Chloride) 250 mls @ 250 mls/hr IVPB Q8H [facility] Last Admin: 11/16/16 05:12 Dose: 250 mls/hr Vancomycin HCl 1,500 mg/ (Sodium Chloride) 500 mls @ 250 mls/hr IVPB Q12H [facility] Last Admin: 11/16/16 00:04 Dose: 250 mls/hr Insulin Glargine (Lantus) 17 unit SC 0800,1999 [facility] Last Admin: 11/16/16 08:58 Dose: 17 u Insulin Human Regular (Novolin R) 4 unit SC Q6 [facility] PRN Reason: Protocol Last Admin: 11/16/16 05:32 Dose: 4 unit Methimazole (Tapazole) 10 mg PO BID [facility] Last Admin: 11/15/16 18:20 Dose: 10 mg Methylprednisolone (Solu-Medrol) 10 mg IVP Q12 [facility] Last Admin: 11/15/16 21:20 Dose: 10 mg Metoprolol Tartrate (Lopressor) 2.5 mg IVP Q6H [facility] Last Admin: 11/16/16 08:58 Dose: 2.5 mg Nystatin (Mycostatin Cream) 0 ea TOP TID [facility] Last Admin: 11/15/16 18:24 Dose: 1 applic Pantoprazole Sodium (Protonix Inj) 40 mg IVP DAILY [facility] Last Admin: 11/15/16 10:09 Dose: 40 mg Senna/Docusate Sodium (Senokot S 50 Mg-8.6 Mg) 1 tab PO BID [facility] Last Admin: 11/15/16 18:20 Dose: 1 tab Vitamin A (Vitamin A & D Oint Ud Foilpak) 1 ea TOP BID [facility] Last Admin: 11/15/16 18:23 Dose: 1 ea - Labs Labs: 11/16/16 05:55 11/16/16 05:55 PT 12.0 SECONDS (9.7-12.2) 11/13/16 04:57 INR 1.1 11/13/16 04:57 APTT 38 SECONDS (21-34) H D 11/13/16 04:57 - Head Exam Head Exam: ATRAUMATIC, NORMOCEPHALIC - ENT Exam ENT Exam: Mucous Membranes Moist - Neck Exam Neck Exam: Normal Inspection - Respiratory Exam Respiratory Exam: Decreased Breath Sounds - Cardiovascular Exam Cardiovascular Exam: Irregular Rhythm - GI/Abdominal Exam GI & Abdominal Exam: Soft, Normal Bowel Sounds Assessment and Plan (1) Respiratory failure with hypoxia Assessment & Plan: remains febrile with left possible loculated effusion rule out empyema Continue antibiotics wean as tolerated CT surgery consult Status: Acute (2) Atrial fibrillation with rapid ventricular response Status: Acute (3) Bilateral lower leg cellulitis Status: Acute (4) Hyperosmolar non-ketotic state in patient with type 2 diabetes mellitus Status: Acute
[2016-11-16] MEDS: Enoxaparin 120 mg Syringe SC SCH ×2 (10:27→21:05)
[2016-11-16] MEDS: Vitamins A & D Oint UD Foilpak TOP SCH ×2 (10:27→19:18)
[2016-11-16] MEDS ORDERED: (Lantus) Insulin Glargine, Recombinant SC SCH (10:30)
[2016-11-16] MEDS: Nystatin 100,000 Units/gm Cream(15 gm) TOP SCH ×3 (10:44→19:08)
[2016-11-16] MEDS ORDERED: EPINEPHrine 1 mg/ml (1:1000) Inj ONE (14:04)
[2016-11-16] MEDS ORDERED: Lidocaine 1% Inj (20ml) ONE (14:05)
--- NOTE | 2016-11-16 14:09 | CP.PCM.CON ---
History of Present Illness - History of Present Illness History of Present Illness: Reason for consultation: bilateral pleural effusions and resp failure. Requested by: The pt s/e and intubated on ventilator. Reviewed progress notes and imaging studies. The pt was brought to ER on 11/04 for AMS and Afib and DKA. Intubated on 11/[address] at that time showed bilat pleural effusions.(right effusion is removed). Repeat ct showed mediastinal shift to left, a completed atelectasis of basal seg of left lower lobe, and narrowing of bronchus leading to the basal seg.(most likely mucus plug), some pleural effusions without evidence of compressive atelectasis of lungs. a/p: 1. Bilateral pleural effusions. 2. Complete obstructive atelectasis from mucus plugs, basal segments of left lower lobe. 3. Pleural effusions -no surgical interventions at this time. Past Patient History - Tetanus Immunizations Tetanus Immunization: Unknown - Past Medical History & Family History Past Medical History?: Yes - Past Social History Smoking Status: Current Some Days Smoker - CARDIAC Hx Hypertension: Yes Hx Peripheral Edema: Yes - PULMONARY Hx Bronchitis: Yes - NEUROLOGICAL Hx Neurological Disorder: No - HEENT Hx HEENT Problems: No Other/Comment: WEARS READING GLASSES. - RENAL Hx Chronic Kidney Disease: No - ENDOCRINE/METABOLIC Hx Hyperthyroidism: Yes - HEMATOLOGICAL/ONCOLOGICAL Hx Blood Disorders: Yes Hx Blood Transfusions: Yes Hx Blood Transfusion Reaction: No - INTEGUMENTARY Hx Cellulitis: Yes - MUSCULOSKELETAL/RHEUMATOLOGICAL Hx Arthritis: Yes Hx Falls: Yes - GASTROINTESTINAL Hx Gastrointestinal Disorders: No - GENITOURINARY/GYNECOLOGICAL Hx Genitourinary Disorders: No - PSYCHIATRIC Hx Anxiety: Yes Hx Depression: Yes Hx Substance Use: No - SURGICAL HISTORY Hx Surgeries: Yes Other/Comment: TUMOR FROM OVARIES REMOVED - ANESTHESIA Hx Anesthesia: Yes Hx Anesthesia Reactions: No Hx Malignant Hyperthermia: No Meds Allergies/Adverse Reactions: Allergies Allergy/AdvReac Type Severity Reaction Status Date / Time No Known Allergies Allergy Verified 11/04/16 11:37 - Medications Medications: Current Medications Acetaminophen (Tylenol 650mg/20.3ml Solution Ud) 650 mg GT Q6 PRN PRN Reason: Fever >100.4 F Last Admin: 11/16/16 08:59 Dose: 650 mg Acetazolamide (Diamox 500 Mg Inj) 500 mg IV Q8H [facility] Stop: 11/17/16 02:16 Last Admin: 11/16/16 13:09 Dose: 500 mg Amiodarone HCl (Cordarone) 200 mg PO Q8H [facility] Last Admin: 11/16/16 10:27 Dose: 200 mg Diltiazem HCl (Cardizem) 60 mg PO Q6 [facility] Last Admin: 11/16/16 13:09 Dose: 60 mg Enoxaparin Sodium (Lovenox) 110 mg SC Q12 [facility] Last Admin: 11/16/16 10:27 Dose: 110 mg Propofol (Diprivan) 100 mls @ 3.493 mls/hr IV .Q24H PRN; Protocol; 5 MCG/KG/MIN PRN Reason: TITRATE PER MD ORDER Last Titration: 11/14/16 07:00 Dose: 0 mcg/kg/min Diltiazem HCl 125 mg/ Sodium (Chloride) 125 mls @ 5 mls/hr IV .Q24H [facility]; 5 MG/ HR PRN Reason: Protocol Last Titration: 11/16/16 10:00 Dose: 8 mg/hr Imipenem/Cilastatin Sodium 1, (000 mg/ Sodium Chloride) 250 mls @ 250 mls/hr IVPB Q8H [facility] Last Admin: 11/16/16 05:12 Dose: 250 mls/hr Vancomycin HCl 1,500 mg/ (Sodium Chloride) 500 mls @ 250 mls/hr IVPB Q12H [facility] Last Admin: 11/16/16 13:10 Dose: 250 mls/hr Insulin Glargine (Lantus) 20 unit SC 0800,2000 [facility] Insulin Human Regular (Novolin R) 4 unit SC Q6 [facility] PRN Reason: Protocol Last Admin: 11/16/16 13:08 Dose: 4 unit Methimazole (Tapazole) 10 mg PO BID [facility] Last Admin: 11/16/16 10:27 Dose: 10 mg Methylprednisolone (Solu-Medrol) 10 mg IVP DAILY [facility] Metoprolol Succinate (Toprol Xl) 12.5 mg PO DAILY [facility] Nystatin (Mycostatin Cream) 0 ea TOP TID [facility] Last Admin: 11/16/16 10:44 Dose: 1 applic Pantoprazole Sodium (Protonix Inj) 40 mg IVP DAILY [facility] Last Admin: 11/16/16 10:26 Dose: 40 mg Potassium Chloride (Potassium Chloride Oral Soln) 40 meq PO ONCE ONE Stop: 11/16/16 14:01 Vitamin A (Vitamin A & D Oint Ud Foilpak) 1 ea TOP BID [facility] Last Admin: 11/16/16 10:27 Dose: 1 ea Results - Vital Signs Recent Vital Signs: Last Vital Signs Temp 101.3 F H 11/16/16 09:59 Pulse 84 11/16/16 07:00 Resp 14 11/16/16 07:00 BP 125/56 L 11/16/16 06:50 Pulse Ox 98 11/16/16 07:00 - Labs Result Diagrams: 11/16/16 05:55 11/16/16 05:55 Labs: Laboratory Results - last 24 hr 11/15/16 11/15/16 11/15/16 13:25 16:14 18:07 WBC RBC Hgb Hct MCV MCH MCHC RDW Plt Count MPV Neut % (Auto) Lymph % (Auto) [place] % (Auto) Eos % (Auto) Baso % (Auto) Neut # Lymph # [place] # Eos # Baso # Neutrophils % (Manual) Lymphocytes % (Manual) Monocytes % (Manual) Eosinophils % (Manual) Platelet Estimate Hypochromasia (manual) Poikilocytosis (manual Anisocytosis (manual) Puncture Site pCO2 pO2 HCO3 ABG pH ABG Total CO2 ABG O2 Saturation ABG Base Excess ABG Hemoglobin ABG Carboxyhemoglobin POC ABG HHb (Measured) ABG Methemoglobin Chaz Test A-a O2 Difference Respiratory Index Hgb O2 Saturation Mechanical Rate FiO2 Tidal Volume PEEP Sodium Potassium Chloride Carbon Dioxide Anion Gap BUN Creatinine Est GFR ( Amer) Est GFR (Non-Af Amer) POC Glucose (mg/dL) 216 H 241 H Random Glucose Calcium Phosphorus Magnesium Total Bilirubin AST ALT Alkaline Phosphatase Total Protein Albumin Globulin Albumin/Globulin Ratio Free T4 Thyroxine (T4) TSH 3rd Generation Urine Color Yellow Urine Clarity Hazy Urine pH 6.0 Ur Specific [place] 1.028 Urine Protein Negative Urine Glucose (UA) 3+ H Urine Ketones Negative Urine Blood Negative Urine Nitrate Negative Urine Bilirubin Negative Urine Urobilinogen 4.0 H Ur Leukocyte Esterase Neg Urine WBC (Auto) 3 Urine Yeast (Budding) Many H Vancomycin Trough 11/15/16 11/16/16 11/16/16 23:52 05:15 05:27 WBC RBC Hgb Hct MCV MCH MCHC RDW Plt Count MPV Neut % (Auto) Lymph % (Auto) [place] % (Auto) Eos % (Auto) Baso % (Auto) Neut # Lymph # [place] # Eos # Baso # Neutrophils % (Manual) Lymphocytes % (Manual) Monocytes % (Manual) Eosinophils % (Manual) Platelet Estimate Hypochromasia (manual) Poikilocytosis (manual Anisocytosis (manual) Puncture Site Rrad pCO2 48 H pO2 129 H HCO3 30.2 H ABG pH 7.43 ABG Total CO2 33.4 H ABG O2 Saturation 99.6 H ABG Base Excess 6.7 H ABG Hemoglobin 9.0 L ABG Carboxyhemoglobin 1.6 H POC ABG HHb (Measured) 0.4 ABG Methemoglobin 1.1 Chaz Test Pos A-a O2 Difference 168.0 Respiratory Index 1.3 Hgb O2 Saturation 96.9 Mechanical Rate 14 FiO2 50.0 Tidal Volume 500 PEEP 5 Sodium Potassium Chloride Carbon Dioxide Anion Gap BUN Creatinine Est GFR ( Amer) Est GFR (Non-Af Amer) POC Glucose (mg/dL) 312 H 282 H Random Glucose Calcium Phosphorus Magnesium Total Bilirubin AST ALT Alkaline Phosphatase Total Protein Albumin Globulin Albumin/Globulin Ratio Free T4 Thyroxine (T4) TSH 3rd Generation Urine Color Urine Clarity Urine pH Ur Specific [place] Urine Protein Urine Glucose (UA) Urine Ketones Urine Blood Urine Nitrate Urine Bilirubin Urine Urobilinogen Ur Leukocyte Esterase Urine WBC (Auto) Urine Yeast (Budding) Vancomycin Trough 11/16/16 11/16/16 05:55 11:58 WBC 11.6 H RBC 3.26 L Hgb 9.3 L D Hct 30.2 L MCV 92.6 MCH 28.6 MCHC 30.9 L RDW 15.2 H Plt Count 151 MPV 10.4 Neut % (Auto) 85.8 H Lymph % (Auto) 7.1 L [place] % (Auto) 6.8 Eos % (Auto) 0.1 Baso % (Auto) 0.2 Neut # 10.0 H Lymph # 0.8 L [place] # 0.8 Eos # 0.0 Baso # 0.0 Neutrophils % (Manual) 80 H Lymphocytes % (Manual) 14 L Monocytes % (Manual) 5 Eosinophils % (Manual) 1 Platelet Estimate Normal Hypochromasia (manual) Slight Poikilocytosis (manual Slight Anisocytosis (manual) Slight Puncture Site pCO2 pO2 HCO3 ABG pH ABG Total CO2 ABG O2 Saturation ABG Base Excess ABG Hemoglobin ABG Carboxyhemoglobin POC ABG HHb (Measured) ABG Methemoglobin Chaz Test A-a O2 Difference Respiratory Index Hgb O2 Saturation Mechanical Rate FiO2 Tidal Volume PEEP Sodium 153 H Potassium 3.3 L Chloride 114 H Carbon Dioxide 32 H Anion Gap 10 BUN 37 H Creatinine 0.8 Est GFR ( Amer) > 60 Est GFR (Non-Af Amer) > 60 POC Glucose (mg/dL) 353 H Random Glucose 287 H Calcium 9.2 Phosphorus 2.5 Magnesium 2.3 Total Bilirubin 0.6 AST 11 L D ALT 33 Alkaline Phosphatase 63 Total Protein 5.1 L Albumin 2.2 L D Globulin 2.9 Albumin/Globulin Ratio 0.8 L Free T4 2.59 H Thyroxine (T4) 8.88 TSH 3rd Generation < 0.02 L Urine Color Urine Clarity Urine pH Ur Specific [place] Urine Protein Urine Glucose (UA) Urine Ketones Urine Blood Urine Nitrate Urine Bilirubin Urine Urobilinogen Ur Leukocyte Esterase Urine WBC (Auto) Urine Yeast (Budding) Vancomycin Trough 27.6 H
[2016-11-16] MEDS ORDERED: Propofol 10 mg/ml Inj (20 ML) IV ONE (14:15)
[2016-11-16] MEDS ORDERED: Midazolam 2 MG/2 ML VIAL IVP ONE (14:15)
[2016-11-16] MEDS ORDERED: Sodium Bicarbonate (8.4%) 50 Meq Syringe IVP ONE (14:30)
[2016-11-16] MEDS ORDERED: Sodium Bicarbonate (8.4%) 50 Meq Syringe ONE (14:31)
[2016-11-16] MEDS: Metoprolol Succinate 12.5 mg XL PO SCH (16:42)
[2016-11-16] MEDS: (Lantus) Insulin Glargine, Recombinant SC SCH (20:46)
--- NOTE | 2016-11-16 21:59 | CP.PCM.PN ---
Subjective - Date & Time of Evaluation Date of Evaluation: 11/15/16 Time of Evaluation: 13:40 - Subjective Subjective: Patient seen at bedside in no acute distress.Pt is on Mv with vent settings of FiO2 50%, RR 14, PEEP 5, TV 500% and is saturating well at 100%, is sick, has bilateral pleural effusion with infiltrates, DKA resolved, GCS 10T (E4 VT M6). Patient opens eyes spontaneously and moves extremities on her own. Patient is stable but still lethargic. Patient spiked a fever overnight and has normal temperature now (T max 101, T current 98.4). Objective - Vital Signs/Intake and Output Vital Signs (last 24 hours): Temp Pulse Resp BP Pulse Ox 97.7 F 86 17 125/49 L 100 11/16/16 20:00 11/16/16 20:49 11/16/16 20:49 11/16/16 20:50 11/16/16 20:49 Intake and Output: 11/16/16 11/17/16 18:59 06:59 Intake Total 1445 Output Total 850 Balance 595 - Medications Medications: Current Medications Acetaminophen (Tylenol 650mg/20.3ml Solution Ud) 650 mg GT Q6 PRN PRN Reason: Fever >100.4 F Last Admin: 11/16/16 08:59 Dose: 650 mg Acetazolamide (Diamox 500 Mg Inj) 500 mg IV Q8H [facility] Stop: 11/17/16 02:16 Last Admin: 11/16/16 19:53 Dose: 500 mg Amiodarone HCl (Cordarone) 200 mg PO Q8H [facility] Last Admin: 11/16/16 19:03 Dose: 200 mg Diltiazem HCl (Cardizem) 60 mg PO Q6 [facility] Last Admin: 11/16/16 19:03 Dose: 60 mg Enoxaparin Sodium (Lovenox) 110 mg SC Q12 [facility] Last Admin: 11/16/16 21:05 Dose: 110 mg Propofol (Diprivan) 100 mls @ 3.493 mls/hr IV .Q24H PRN; Protocol; 5 MCG/KG/MIN PRN Reason: TITRATE PER MD ORDER Last Titration: 11/14/16 07:00 Dose: 0 mcg/kg/min Diltiazem HCl 125 mg/ Sodium (Chloride) 125 mls @ 5 mls/hr IV .Q24H [facility]; 5 MG/ HR PRN Reason: Protocol Last Admin: 11/16/16 19:44 Dose: Not Given Imipenem/Cilastatin Sodium 1, (000 mg/ Sodium Chloride) 250 mls @ 250 mls/hr IVPB Q8H [facility] Last Admin: 11/16/16 20:49 Dose: 250 mls/hr Vancomycin HCl 1,500 mg/ (Sodium Chloride) 500 mls @ 250 mls/hr IVPB Q12H [facility] Last Admin: 11/16/16 13:10 Dose: 250 mls/hr Insulin Glargine (Lantus) 20 unit SC 0800,2000 [facility] Last Admin: 11/16/16 20:46 Dose: 20 units Insulin Human Regular (Novolin R) 4 unit SC Q6 [facility] PRN Reason: Protocol Last Admin: 11/16/16 19:03 Dose: 4 unit Methimazole (Tapazole) 10 mg PO BID [facility] Last Admin: 11/16/16 19:03 Dose: 10 mg Methylprednisolone (Solu-Medrol) 10 mg IVP DAILY [facility] Metoprolol Succinate (Toprol Xl) 12.5 mg PO DAILY [facility] Last Admin: 11/16/16 16:42 Dose: Not Given Nystatin (Mycostatin Cream) 0 ea TOP TID [facility] Last Admin: 11/16/16 19:08 Dose: 1 applic Pantoprazole Sodium (Protonix Inj) 40 mg IVP DAILY [facility] Last Admin: 11/16/16 10:26 Dose: 40 mg Vitamin A (Vitamin A & D Oint Ud Foilpak) 1 ea TOP BID [facility] Last Admin: 11/16/16 19:18 Dose: Not Given - Labs Labs: 11/16/16 05:55 11/16/16 05:55 PT 12.0 SECONDS (9.7-12.2) 11/13/16 04:57 INR 1.1 11/13/16 04:57 APTT 38 SECONDS (21-34) H D 11/13/16 04:57 - Constitutional Appears: Confused, Chronically Ill - Head Exam Head Exam: ATRAUMATIC, NORMAL INSPECTION, NORMOCEPHALIC - Eye Exam Eye Exam: EOMI, Normal appearance, PERRL Pupil Exam: NORMAL ACCOMODATION, PERRL - Respiratory Exam Respiratory Exam: Decreased Breath Sounds, Rales, Rhonchi - Cardiovascular Exam Cardiovascular Exam: REGULAR RHYTHM, +S1, +S2. absent: Murmur - GI/Abdominal Exam GI & Abdominal Exam: Soft, Normal Bowel Sounds. absent: Tenderness Assessment and Plan (1) Atrial fibrillation with rapid ventricular response Status: Acute (2) Bilateral lower leg cellulitis Status: Acute (3) CHF (congestive heart failure) Status: Acute (4) DKA (diabetic ketoacidoses) Status: Resolved (5) Diabetes Status: Chronic (6) HTN (hypertension) Status: Chronic
--- NOTE | 2016-11-16 22:02 | CP.PCM.PN ---
Subjective - Date & Time of Evaluation Date of Evaluation: 11/16/16 Time of Evaluation: 13:41 - Subjective Subjective: Patient seen at bedside in no acute distress.remains o mechanical ventilator with vent settings of FiO2 50%, RR 14, PEEP 5, TV 500% and is saturating well at 100%. Patient is stable but still lethargic Objective - Vital Signs/Intake and Output Vital Signs (last 24 hours): Temp Pulse Resp BP Pulse Ox 97.7 F 86 17 125/49 L 100 11/16/16 20:00 11/16/16 20:49 11/16/16 20:49 11/16/16 20:50 11/16/16 20:49 Intake and Output: 11/16/16 11/17/16 18:59 06:59 Intake Total 1445 Output Total 850 Balance 595 - Medications Medications: Current Medications Acetaminophen (Tylenol 650mg/20.3ml Solution Ud) 650 mg GT Q6 PRN PRN Reason: Fever >100.4 F Last Admin: 11/16/16 08:59 Dose: 650 mg Acetazolamide (Diamox 500 Mg Inj) 500 mg IV Q8H [facility] Stop: 11/17/16 02:16 Last Admin: 11/16/16 19:53 Dose: 500 mg Amiodarone HCl (Cordarone) 200 mg PO Q8H [facility] Last Admin: 11/16/16 19:03 Dose: 200 mg Diltiazem HCl (Cardizem) 60 mg PO Q6 [facility] Last Admin: 11/16/16 19:03 Dose: 60 mg Enoxaparin Sodium (Lovenox) 110 mg SC Q12 [facility] Last Admin: 11/16/16 21:05 Dose: 110 mg Propofol (Diprivan) 100 mls @ 3.493 mls/hr IV .Q24H PRN; Protocol; 5 MCG/KG/MIN PRN Reason: TITRATE PER MD ORDER Last Titration: 11/14/16 07:00 Dose: 0 mcg/kg/min Diltiazem HCl 125 mg/ Sodium (Chloride) 125 mls @ 5 mls/hr IV .Q24H [facility]; 5 MG/ HR PRN Reason: Protocol Last Admin: 11/16/16 19:44 Dose: Not Given Imipenem/Cilastatin Sodium 1, (000 mg/ Sodium Chloride) 250 mls @ 250 mls/hr IVPB Q8H [facility] Last Admin: 11/16/16 20:49 Dose: 250 mls/hr Vancomycin HCl 1,500 mg/ (Sodium Chloride) 500 mls @ 250 mls/hr IVPB Q12H [facility] Last Admin: 11/16/16 13:10 Dose: 250 mls/hr Insulin Glargine (Lantus) 20 unit SC 0800,2000 [facility] Last Admin: 11/16/16 20:46 Dose: 20 units Insulin Human Regular (Novolin R) 4 unit SC Q6 [facility] PRN Reason: Protocol Last Admin: 11/16/16 19:03 Dose: 4 unit Methimazole (Tapazole) 10 mg PO BID [facility] Last Admin: 11/16/16 19:03 Dose: 10 mg Methylprednisolone (Solu-Medrol) 10 mg IVP DAILY [facility] Metoprolol Succinate (Toprol Xl) 12.5 mg PO DAILY [facility] Last Admin: 11/16/16 16:42 Dose: Not Given Nystatin (Mycostatin Cream) 0 ea TOP TID [facility] Last Admin: 11/16/16 19:08 Dose: 1 applic Pantoprazole Sodium (Protonix Inj) 40 mg IVP DAILY [facility] Last Admin: 11/16/16 10:26 Dose: 40 mg Vitamin A (Vitamin A & D Oint Ud Foilpak) 1 ea TOP BID [facility] Last Admin: 11/16/16 19:18 Dose: Not Given - Labs Labs: 11/16/16 05:55 11/16/16 05:55 PT 12.0 SECONDS (9.7-12.2) 11/13/16 04:57 INR 1.1 11/13/16 04:57 APTT 38 SECONDS (21-34) H D 11/13/16 04:57 - Constitutional Appears: No Acute Distress, Chronically Ill - Head Exam Head Exam: ATRAUMATIC, NORMAL INSPECTION, NORMOCEPHALIC - Eye Exam Eye Exam: EOMI, Normal appearance, PERRL Pupil Exam: NORMAL ACCOMODATION, PERRL - Respiratory Exam Respiratory Exam: Decreased Breath Sounds, Rales, Rhonchi - Cardiovascular Exam Cardiovascular Exam: REGULAR RHYTHM, +S1, +S2. absent: Murmur - GI/Abdominal Exam GI & Abdominal Exam: Soft, Normal Bowel Sounds. absent: Tenderness Assessment and Plan (1) Atrial fibrillation with rapid ventricular response Status: Acute (2) Bilateral lower leg cellulitis Status: Acute (3) CHF (congestive heart failure) Status: Acute (4) DKA (diabetic ketoacidoses) Status: Resolved (5) Diabetes Assessment & Plan: un controlled blood sugars are fluctuating Status: Chronic (6) HTN (hypertension) Status: Chronic
[2016-11-17] MEDS: (Novolin R) Insulin Human Regular 100 units/ml vial SC SCH ×4 (00:10→17:49)
[2016-11-17 05:51] LABS: ABG ALLEN TEST POS; ABG MECHANICAL RATE 14; ARTERIAL BLOOD HGB O2 SAT 96.7 % (95.0-98.0); ATERIAL BLOOD GAS PEEP 5; CARBOXYHEMOGLOBIN 1.7 % (0.5-1.5); DRAW SITE RRAD; HHB 0.5 % (0.0-5.0); METHEMOGLOBIN 1.2 % (0.0-3.0)
--- NOTE | 2016-11-17 06:43 | CP.CCUPN ---
<Eloina Allen - Last Filed: 11/17/16 06:43> CCU Subjective - Physician Review Subjective (Free Text): 11/08/16 13:06 Pt seen in mild distress requiring intubation. Two large pieces of dried mucus were extracted from the patient's throat obstructing vocal cords. Patient intubated. TLC line was also placed to ensure better IV access. 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 An ROS could not be obtained at this time because patient is intubated and sedated. 11/09/16 13:15 Patient seen at beside intubated and sedated. GCS 8T (FiO2 60 PEEP 5 VT 500 RR 16). No acute events overnight per nursing. A fib is rate controlled. Patient is stable. New vent settings after rounds PRVC (FiO2 60, PEEP 5, RR 12 VT 500). ROS couldn't be obtained because patient is intubated and sedated. 11/10/16 16:50 Pt seen and examined in no acute distress. Patient spiked a fever during overnight shift which initially responded to Tylenol and later returned during the morning shift. Patient administered tylenol and cooling blankets. Patient underwent thoracentesis for pleural effusion. Tolerated procedure well. Patient is rate controlled. ROS couldn't be obtained because patient is intubated and sedated. 11/11/16 8:34 Pt seen and examined in no acute distress. Patient seen at beside intubated and sedated. (FiO2 50 PEEP 5 RR 14 VT 500). Patient is awake, but does not follow commands. Patient has low grade fever this morning (T max 100.2, T 99.0-100.2). A fib is rate controlled. Patient is stable. ROS couldn't be obtained because patient was intubated and sedated at the time of evaluation 11/14/16 15:35 Patient seen at bedside in no acute distress. Patient intubated with vent settings of FiO2 50%, RR 14, PEEP 5, TV 500% and is saturating well at 100%. GCS 10T (E4 VT M6). Patient's last dose of propofol was given 11/12. Patient opens eyes spontaneously and moves extremities on her own. CPAP trial was done after morning rounds. Patient was tachycardic prior to morning rounds, but is currently rate controlled. Patient is stable. Patient spiked a fever overnight and is currently having a low grade fever (T max 101.1, T current 99.3). ROS could not be obtained because patient is intubated at time of evaluation. Over the weekend, NGT removed and replaced with OGT with Afrin spray in nose bilaterally. Right sided nasal packing inserted where NGT had been. 11/15/16 15:39 Patient seen at bedside in no acute distress. Patient intubated with vent settings of FiO2 50%, RR 14, PEEP 5, TV 500% and is saturating well at 100%. GCS 10T (E4 VT M6). Patient's last dose of propofol was given 11/12. Patient opens eyes spontaneously and moves extremities on her own. Patient is stable but still lethargic. Patient spiked a fever overnight and has normal temperature now (T max 101, T current 98.4). ROS could not be obtained because patient is intubated and lethargic at time of evaluation. 11/16/16 13:09 Patient seen at bedside in no acute distress. Patient intubated with vent settings of FiO2 50%, RR 14, PEEP 5, TV 500% and is saturating well at 100%. Patient is stable but still lethargic. Patient spiked a fever overnight and has normal temperature now (T max 101.4, T current 101.3). ROS could not be obtained because patient is intubated at time of evaluation. CCU Objective - Vital Signs / Intake & Output Vital Signs (Last 4 hours): Vital Signs Temp Pulse Resp BP Pulse Ox 11/17/16 04:00 98.5 F 96 H 20 97 11/17/16 03:58 98 H 20 134/70 96 11/17/16 03:57 96 H 16 96 11/17/16 02:59 122/81 11/17/16 02:55 90 18 97 Intake and Output (Last 8hrs): Intake & Output 11/16/16 11/16/16 11/17/16 14:59 22:59 06:59 Intake Total 879 684 9731 Output Total 600 490 400 Balance 374 443 703 Intake: Intake, IV Amount 574 533 503 Right Distal Port 500 250 Right Proximal Port 74 33 3 Internal Jugular Right Medial Port 250 500 Internal Jugular Tube Feeding 400 400 250 Other 350 Output: Urine 600 490 400 Urethral (Hemphill) 600 490 400 Other: # Bowel Movements 2 - Physical Exam Head: Positive for: Atraumatic, Normocephalic Pupils: Positive for: PERRL. Negative for: Sluggish, Non-Reactive Extroacular Muscles: Positive for: EOMI. Negative for: Gaze Palsy Conjunctiva: Positive for: Normal. Negative for: Injected, Icteric Mouth: Positive for: Moist Mucous Membranes Nose (Internal): Positive for: Other (packing in place) Neck: Positive for: Normal Range of Motion, Trachea Midline. Negative for: Meningeal Signs, MIDLINE TENDERNESS, Paraspinal Tenderness, JVD, Lymphadenopathy , Bruit, Other Respiratory/Chest: Positive for: Wheezes, Decreased Breath Sounds, Other ( intubated). Negative for: Rales Cardiovascular: Positive for: Irregular Rhythm, Peripheal Pulses Present, Tachycardic. Negative for: Murmurs, Normal S1, S2 Abdomen: Negative for: Tenderness, Distention Upper Extremity: Positive for: Normal Inspection Lower Extremity: Positive for: Edema Neurological: Negative for: Speech Normal Psychiatric: Negative for: Alert, Oriented x 3 - Medications Active Medications: Active Medications Generic Name Dose Route Start Last Admin Trade Name Freq PRN Reason Stop Dose Admin Acetaminophen 650 mg 11/14/16 20:10 11/16/16 08:59 Tylenol 650mg/20.3ml Solution Ud GT 650 mg Q6 PRN Administration Fever >100.4 F Amiodarone HCl 200 mg 11/15/16 18:00 11/17/16 02:38 Cordarone PO 200 mg Q8H [facility] Administration Diltiazem HCl 60 mg 11/15/16 12:00 11/17/16 05:59 Cardizem PO 60 mg Q6 [facility] Administration Enoxaparin Sodium 110 mg 11/15/16 22:00 11/16/16 21:05 Lovenox SC 110 mg Q12 [facility] Administration Propofol 100 mls @ 3.493 mls/hr 11/08/16 08:29 11/14/16 07:00 Diprivan IV 0 mcg/kg/min .Q24H PRN Titration TITRATE PER MD ORDER Protocol 5 MCG/KG/MIN Diltiazem HCl 125 mg/ Sodium 125 mls @ 5 mls/hr 11/14/16 19:00 11/17/16 00:00 Chloride IV 0 mg/hr .Q24H [facility] Titration Protocol 5 MG/HR Imipenem/Cilastatin Sodium 1, 250 mls @ 250 mls/hr 11/15/16 13:00 11/17/16 04: 25 000 mg/ Sodium Chloride IVPB 250 mls/hr Q8H [facility] Administration Vancomycin HCl 1,500 mg/ 500 mls @ 250 mls/hr 11/15/16 12:00 11/17/16 00:04 Sodium Chloride IVPB 250 mls/hr Q12H [facility] Administration Insulin Glargine 20 unit 11/16/16 20:00 11/16/16 20:46 Lantus SC 20 units 0800,2000 [facility] Administration Insulin Human Regular 4 unit 11/15/16 22:38 11/17/16 05:59 Novolin R SC 4 unit Q6 [facility] Administration Protocol Methimazole 10 mg 11/14/16 10:00 11/16/16 19:03 Tapazole PO 10 mg BID [facility] Administration Methylprednisolone 10 mg 11/17/16 10:00 Solu-Medrol IVP DAILY [facility] Metoprolol Succinate 12.5 mg 11/16/16 10:30 11/16/16 16:42 Toprol Xl PO Not Given DAILY [facility] Nystatin 0 ea 11/04/16 18:00 11/16/16 19:08 Mycostatin Cream TOP 1 applic TID [facility] Administration Pantoprazole Sodium 40 mg 11/04/16 16:45 11/16/16 10:26 Protonix Inj IVP 40 mg DAILY [facility] Administration Vitamin A 1 ea 11/09/16 18:00 11/16/16 19:18 Vitamin A & D Oint Ud Foilpak TOP Not Given BID [facility] - Patient Studies Lab Studies: Microbiology Studies 11/15/16 12:15 Blood Culture - Preliminary Blood-Thru Central Line NO GROWTH AFTER 24 HOURS 11/15/16 12:45 Blood Culture - Preliminary Blood-Thru Central Line NO GROWTH AFTER 24 HOURS Lab Studies 11/17/16 11/17/16 11/17/16 Range/Units 05:54 05:22 00:38 Neutrophils % (Manual) (50-75) % Lymphocytes % (Manual) (20-40) % Monocytes % (Manual) (0-10) % Eosinophils % (Manual) (0-4) % Platelet Estimate (NORMAL) Hypochromasia (manual) Poikilocytosis (manual Anisocytosis (manual) Puncture Site Rrad pCO2 51 H (35-45) mm/Hg pO2 116 H (80-100) mm/Hg HCO3 27.0 (21-28) mmol/L ABG pH 7.36 (7.35-7.45) ABG Total CO2 30.4 H (22-28) mmol/L ABG O2 Saturation 99.5 H (95-98) % ABG Base Excess 2.7 (-2.0-3.0) mmol/L ABG Hemoglobin 9.8 L (11.7-17.4) g/dL ABG Carboxyhemoglobin 1.7 H (0.5-1.5) % POC ABG HHb (Measured) 0.5 (0.0-5.0) % ABG Methemoglobin 1.2 (0.0-3.0) % Chaz Test Pos A-a O2 Difference 177.0 mm/Hg Respiratory Index 1.5 Hgb O2 Saturation 96.7 (95.0-98.0) % Mechanical Rate 14 FiO2 50.0 % Tidal Volume 500 PEEP 5 POC Glucose (mg/dL) 204 H (65-110) mg/dL Free T4 (0.78-2.19) ng/dL TSH 3rd Generation (0.46-4.68) mIU/L Vancomycin Trough 16.1 H (5.0-10.0) ug/mL 11/16/16 11/16/16 11/16/16 Range/Units 23:27 17:50 11:58 Neutrophils % (Manual) (50-75) % Lymphocytes % (Manual) (20-40) % Monocytes % (Manual) (0-10) % Eosinophils % (Manual) (0-4) % Platelet Estimate (NORMAL) Hypochromasia (manual) Poikilocytosis (manual Anisocytosis (manual) Puncture Site pCO2 (35-45) mm/Hg pO2 (80-100) mm/Hg HCO3 (21-28) mmol/L ABG pH (7.35-7.45) ABG Total CO2 (22-28) mmol/L ABG O2 Saturation (95-98) % ABG Base Excess (-2.0-3.0) mmol/L ABG Hemoglobin (11.7-17.4) g/dL ABG Carboxyhemoglobin (0.5-1.5) % POC ABG HHb (Measured) (0.0-5.0) % ABG Methemoglobin (0.0-3.0) % Chaz Test A-a O2 Difference mm/Hg Respiratory Index Hgb O2 Saturation (95.0-98.0) % Mechanical Rate FiO2 % Tidal Volume PEEP POC Glucose (mg/dL) 276 H 253 H 353 H (65-110) mg/dL Free T4 (0.78-2.19) ng/dL TSH 3rd Generation (0.46-4.68) mIU/L Vancomycin Trough (5.0-10.0) ug/mL 11/16/16 Range/Units 05:55 Neutrophils % (Manual) 80 H (50-75) % Lymphocytes % (Manual) 14 L (20-40) % Monocytes % (Manual) 5 (0-10) % Eosinophils % (Manual) 1 (0-4) % Platelet Estimate Normal (NORMAL) Hypochromasia (manual) Slight Poikilocytosis (manual Slight Anisocytosis (manual) Slight Puncture Site pCO2 (35-45) mm/Hg pO2 (80-100) mm/Hg HCO3 (21-28) mmol/L ABG pH (7.35-7.45) ABG Total CO2 (22-28) mmol/L ABG O2 Saturation (95-98) % ABG Base Excess (-2.0-3.0) mmol/L ABG Hemoglobin (11.7-17.4) g/dL ABG Carboxyhemoglobin (0.5-1.5) % POC ABG HHb (Measured) (0.0-5.0) % ABG Methemoglobin (0.0-3.0) % Chaz Test A-a O2 Difference mm/Hg Respiratory Index Hgb O2 Saturation (95.0-98.0) % Mechanical Rate FiO2 % Tidal Volume PEEP POC Glucose (mg/dL) (65-110) mg/dL Free T4 2.59 H (0.78-2.19) ng/dL TSH 3rd Generation < 0.02 L (0.46-4.68) mIU/L Vancomycin Trough (5.0-10.0) ug/mL Laboratory Results - last 24 hr 11/16/16 11/16/16 11/16/16 05:55 11:58 17:50 Neutrophils % (Manual) 80 H Lymphocytes % (Manual) 14 L Monocytes % (Manual) 5 Eosinophils % (Manual) 1 Platelet Estimate Normal Hypochromasia (manual) Slight Poikilocytosis (manual Slight Anisocytosis (manual) Slight Puncture Site pCO2 pO2 HCO3 ABG pH ABG Total CO2 ABG O2 Saturation ABG Base Excess ABG Hemoglobin ABG Carboxyhemoglobin POC ABG HHb (Measured) ABG Methemoglobin Chaz Test A-a O2 Difference Respiratory Index Hgb O2 Saturation Mechanical Rate FiO2 Tidal Volume PEEP POC Glucose (mg/dL) 353 H 253 H Free T4 2.59 H TSH 3rd Generation < 0.02 L Vancomycin Trough 11/16/16 11/17/16 11/17/16 23:27 00:38 05:22 Neutrophils % (Manual) Lymphocytes % (Manual) Monocytes % (Manual) Eosinophils % (Manual) Platelet Estimate Hypochromasia (manual) Poikilocytosis (manual Anisocytosis (manual) Puncture Site Rrad pCO2 51 H pO2 116 H HCO3 27.0 ABG pH 7.36 ABG Total CO2 30.4 H ABG O2 Saturation 99.5 H ABG Base Excess 2.7 ABG Hemoglobin 9.8 L ABG Carboxyhemoglobin 1.7 H POC ABG HHb (Measured) 0.5 ABG Methemoglobin 1.2 Chaz Test Pos A-a O2 Difference 177.0 Respiratory Index 1.5 Hgb O2 Saturation 96.7 Mechanical Rate 14 FiO2 50.0 Tidal Volume 500 PEEP 5 POC Glucose (mg/dL) 276 H Free T4 TSH 3rd Generation Vancomycin Trough 16.1 H 11/17/16 05:54 Neutrophils % (Manual) Lymphocytes % (Manual) Monocytes % (Manual) Eosinophils % (Manual) Platelet Estimate Hypochromasia (manual) Poikilocytosis (manual Anisocytosis (manual) Puncture Site pCO2 pO2 HCO3 ABG pH ABG Total CO2 ABG O2 Saturation ABG Base Excess ABG Hemoglobin ABG Carboxyhemoglobin POC ABG HHb (Measured) ABG Methemoglobin Chaz Test A-a O2 Difference Respiratory Index Hgb O2 Saturation Mechanical Rate FiO2 Tidal Volume PEEP POC Glucose (mg/dL) 204 H Free T4 TSH 3rd Generation Vancomycin Trough Fingerstick Blood Sugar Results: 204 <Morena Dean - Last Filed: 11/17/16 20:17> CCU Subjective - Physician Review Events Since Last Encounter (Free Text): 11/17/16 20:16 seen and examined in the morning, much more awake, no fever, waved hello, wbc count decreasing, tolerated fio2 of 40% with out desaturating. CCU Objective - Vital Signs / Intake & Output Vital Signs (Last 4 hours): Vital Signs Pulse Resp BP Pulse Ox 11/17/16 19:00 67 14 100 11/17/16 18:58 72 14 112/50 L 100 11/17/16 18:14 80 14 100 11/17/16 18:00 84 14 100 11/17/16 17:58 81 14 112/59 L 100 11/17/16 17:00 75 14 100 11/17/16 16:58 74 14 115/62 100 11/17/16 16:25 84 14 100 Intake and Output (Last 8hrs): Intake & Output 11/17/16 11/17/16 11/17/16 06:59 14:59 22:59 Intake Total 1753 1774.5 535 Output Total 540 415 250 Balance 1213 1359.5 285 Weight 233 lb 3.985 oz Intake: Intake, IV Amount 753 774.5 35 Right Distal Port 0 0 Right Proximal Port 3 750 0 Internal Jugular Right Medial Port 750 24.5 35 Internal Jugular Oral 600 250 Tube Feeding 400 400 250 Other 600 Output: Urine 540 415 250 Urethral (Hemphill) 540 415 250 Other: # Bowel Movements 0 1 - Medications Active Medications: Active Medications Generic Name Dose Route Start Last Admin Trade Name Freq PRN Reason Stop Dose Admin Acetaminophen 650 mg 11/14/16 20:10 11/16/16 08:59 Tylenol 650mg/20.3ml Solution Ud GT 650 mg Q6 PRN Administration Fever >100.4 F Amiodarone HCl 200 mg 11/15/16 18:00 11/17/16 17:50 Cordarone PO 200 mg Q8H [facility] Administration Diltiazem HCl 60 mg 11/15/16 12:00 11/17/16 17:51 Cardizem PO 60 mg Q6 [facility] Administration Enoxaparin Sodium 110 mg 11/15/16 22:00 11/17/16 09:38 Lovenox SC 110 mg Q12 [facility] Administration Propofol 100 mls @ 3.493 mls/hr 11/08/16 08:29 11/17/16 19:40 Diprivan IV 6.986 mls/hr .Q24H PRN Administration TITRATE PER MD ORDER Protocol 5 MCG/KG/MIN Imipenem/Cilastatin Sodium 1, 250 mls @ 250 mls/hr 11/15/16 13:00 11/17/16 20: 00 000 mg/ Sodium Chloride IVPB 250 mls/hr Q8H [facility] Administration Vancomycin HCl 1,500 mg/ 500 mls @ 250 mls/hr 11/15/16 12:00 11/17/16 11:45 Sodium Chloride IVPB 250 mls/hr Q12H [facility] Administration Insulin Glargine 24 unit 11/17/16 08:38 11/17/16 20:00 Lantus SC 24 u 0800,1999 [facility] Administration Insulin Human Regular 0 unit 11/17/16 08:38 11/17/16 17:49 Novolin R SC 4 unit Q6 [facility] Administration Protocol Methimazole 10 mg 11/14/16 10:00 11/17/16 17:51 Tapazole PO 10 mg BID [facility] Administration Methylprednisolone 10 mg 11/17/16 10:00 11/17/16 09:39 Solu-Medrol IVP 10 mg DAILY [facility] Administration Metoprolol Succinate 12.5 mg 11/16/16 10:30 11/17/16 09:39 Toprol Xl PO 12.5 mg DAILY [facility] Administration Nystatin 0 ea 11/04/16 18:00 11/17/16 17:50 Mycostatin Cream TOP 1 applic TID [facility] Administration Pantoprazole Sodium 40 mg 11/04/16 16:45 11/17/16 09:39 Protonix Inj IVP 40 mg DAILY [facility] Administration Vitamin A 1 ea 11/09/16 18:00 11/17/16 17:52 Vitamin A & D Oint Ud Foilpak TOP 1 ea BID [facility] Administration - Patient Studies Lab Studies: Microbiology Studies 11/15/16 12:15 Blood Culture - Preliminary Blood-Thru Central Line NO GROWTH AFTER 48 HOURS 11/15/16 12:45 Blood Culture - Preliminary Blood-Thru Central Line NO GROWTH AFTER 48 HOURS 11/15/16 14:16 Bronchial Culture - Preliminary Bronchial Washings Gram Positive Cocci 11/15/16 15:03 Urine Culture - Final Urine,Clean Catch Yeast Species Lab Studies 11/17/16 11/17/16 11/17/16 Range/Units 17:41 11:46 06:37 WBC 9.0 (4.8-10.8) K/uL RBC 3.23 L (3.80-5.20) Mil/uL Hgb 9.5 L (11.0-16.0) g/dL Hct 30.6 L (34.0-47.0) % MCV 94.6 D (81.0-99.0) fL MCH 29.5 (27.0-31.0) pg MCHC 31.2 L (33.0-37.0) g/dL RDW 15.0 H (11.5-14.5) % Plt Count 155 (130-400) K/uL MPV 10.1 (7.2-11.7) fL Neut % (Auto) 75.9 H (50.0-75.0) % Lymph % (Auto) 14.6 L (20.0-40.0) % Spencer % (Auto) 7.7 (0.0-10.0) % Eos % (Auto) 1.7 (0.0-4.0) % Baso % (Auto) 0.1 (0.0-2.0) % Neut # 6.8 (1.8-7.0) K/uL Lymph # 1.3 (1.0-4.3) K/uL Spencer # 0.7 (0.0-0.8) K/uL Eos # 0.2 (0.0-0.7) K/uL Baso # 0.0 (0.0-0.2) K/uL Puncture Site pCO2 (35-45) mm/Hg pO2 (80-100) mm/Hg HCO3 (21-28) mmol/L ABG pH (7.35-7.45) ABG Total CO2 (22-28) mmol/L ABG O2 Saturation (95-98) % ABG Base Excess (-2.0-3.0) mmol/L ABG Hemoglobin (11.7-17.4) g/dL ABG Carboxyhemoglobin (0.5-1.5) % POC ABG HHb (Measured) (0.0-5.0) % ABG Methemoglobin (0.0-3.0) % Chaz Test A-a O2 Difference mm/Hg Respiratory Index Hgb O2 Saturation (95.0-98.0) % Mechanical Rate FiO2 % Tidal Volume PEEP Sodium (132-148) mmol/L Potassium (3.6-5.2) mmol/L Chloride (98-107) mmol/L Carbon Dioxide (22-30) mmol/L Anion Gap (10-20) BUN (7-17) mg/dL Creatinine (0.7-1.2) MG/DL Est GFR ( Amer) Est GFR (Non-Af Amer) POC Glucose (mg/dL) 246 H 263 H (65-110) mg/dL Random Glucose (65-105) mg/dL Calcium (8.6-10.4) mg/dl Phosphorus (2.5-4.5) mg/dL Magnesium (1.6-2.3) mg/dL Total Bilirubin (0.2-1.3) mg/dL AST (14-36) U/L ALT (9-52) U/L Alkaline Phosphatase (38-126) U/L Total Protein (6.3-8.3) g/dL Albumin (3.5-5.0) g/dL Globulin (2.2-3.9) gm/dL Albumin/Globulin Ratio (1.0-2.1) Vancomycin Trough (5.0-10.0) ug/mL 11/17/16 11/17/16 11/17/16 Range/Units 06:29 05:54 05:22 WBC (4.8-10.8) K/uL RBC (3.80-5.20) Mil/uL Hgb (11.0-16.0) g/dL Hct (34.0-47.0) % MCV (81.0-99.0) fL MCH (27.0-31.0) pg MCHC (33.0-37.0) g/dL RDW (11.5-14.5) % Plt Count (130-400) K/uL MPV (7.2-11.7) fL Neut % (Auto) (50.0-75.0) % Lymph % (Auto) (20.0-40.0) % Spencer % (Auto) (0.0-10.0) % Eos % (Auto) (0.0-4.0) % Baso % (Auto) (0.0-2.0) % Neut # (1.8-7.0) K/uL Lymph # (1.0-4.3) K/uL Spencer # (0.0-0.8) K/uL Eos # (0.0-0.7) K/uL Baso # (0.0-0.2) K/uL Puncture Site Rrad pCO2 51 H (35-45) mm/Hg pO2 116 H (80-100) mm/Hg HCO3 27.0 (21-28) mmol/L ABG pH 7.36 (7.35-7.45) ABG Total CO2 30.4 H (22-28) mmol/L ABG O2 Saturation 99.5 H (95-98) % ABG Base Excess 2.7 (-2.0-3.0) mmol/L ABG Hemoglobin 9.8 L (11.7-17.4) g/dL ABG Carboxyhemoglobin 1.7 H (0.5-1.5) % POC ABG HHb (Measured) 0.5 (0.0-5.0) % ABG Methemoglobin 1.2 (0.0-3.0) % Chaz Test Pos A-a O2 Difference 177.0 mm/Hg Respiratory Index 1.5 Hgb O2 Saturation 96.7 (95.0-98.0) % Mechanical Rate 14 FiO2 50.0 % Tidal Volume 500 PEEP 5 Sodium 152 H (132-148) mmol/L Potassium 3.1 L (3.6-5.2) mmol/L Chloride 118 H (98-107) mmol/L Carbon Dioxide 26 (22-30) mmol/L Anion Gap 11 (10-20) BUN 35 H (7-17) mg/dL Creatinine 0.7 (0.7-1.2) MG/DL Est GFR ( Amer) > 60 Est GFR (Non-Af Amer) > 60 POC Glucose (mg/dL) 204 H (65-110) mg/dL Random Glucose 186 H (65-105) mg/dL Calcium 9.1 (8.6-10.4) mg/dl Phosphorus 2.6 (2.5-4.5) mg/dL Magnesium 2.3 (1.6-2.3) mg/dL Total Bilirubin 0.6 (0.2-1.3) mg/dL AST 10 L (14-36) U/L ALT 31 (9-52) U/L Alkaline Phosphatase 61 (38-126) U/L Total Protein 5.4 L (6.3-8.3) g/dL Albumin 2.3 L (3.5-5.0) g/dL Globulin 3.1 (2.2-3.9) gm/dL Albumin/Globulin Ratio 0.7 L (1.0-2.1) Vancomycin Trough (5.0-10.0) ug/mL 11/17/16 11/16/16 Range/Units 00:38 23:27 WBC (4.8-10.8) K/uL RBC (3.80-5.20) Mil/uL Hgb (11.0-16.0) g/dL Hct (34.0-47.0) % MCV (81.0-99.0) fL MCH (27.0-31.0) pg MCHC (33.0-37.0) g/dL RDW (11.5-14.5) % Plt Count (130-400) K/uL MPV (7.2-11.7) fL Neut % (Auto) (50.0-75.0) % Lymph % (Auto) (20.0-40.0) % Spencer % (Auto) (0.0-10.0) % Eos % (Auto) (0.0-4.0) % Baso % (Auto) (0.0-2.0) % Neut # (1.8-7.0) K/uL Lymph # (1.0-4.3) K/uL Spencer # (0.0-0.8) K/uL Eos # (0.0-0.7) K/uL Baso # (0.0-0.2) K/uL Puncture Site pCO2 (35-45) mm/Hg pO2 (80-100) mm/Hg HCO3 (21-28) mmol/L ABG pH (7.35-7.45) ABG Total CO2 (22-28) mmol/L ABG O2 Saturation (95-98) % ABG Base Excess (-2.0-3.0) mmol/L ABG Hemoglobin (11.7-17.4) g/dL ABG Carboxyhemoglobin (0.5-1.5) % POC ABG HHb (Measured) (0.0-5.0) % ABG Methemoglobin (0.0-3.0) % Chaz Test A-a O2 Difference mm/Hg Respiratory Index Hgb O2 Saturation (95.0-98.0) % Mechanical Rate FiO2 % Tidal Volume PEEP Sodium (132-148) mmol/L Potassium (3.6-5.2) mmol/L Chloride (98-107) mmol/L Carbon Dioxide (22-30) mmol/L Anion Gap (10-20) BUN (7-17) mg/dL Creatinine (0.7-1.2) MG/DL Est GFR ( Amer) Est GFR (Non-Af Amer) POC Glucose (mg/dL) 276 H (65-110) mg/dL Random Glucose (65-105) mg/dL Calcium (8.6-10.4) mg/dl Phosphorus (2.5-4.5) mg/dL Magnesium (1.6-2.3) mg/dL Total Bilirubin (0.2-1.3) mg/dL AST (14-36) U/L ALT (9-52) U/L Alkaline Phosphatase (38-126) U/L Total Protein (6.3-8.3) g/dL Albumin (3.5-5.0) g/dL Globulin (2.2-3.9) gm/dL Albumin/Globulin Ratio (1.0-2.1) Vancomycin Trough 16.1 H (5.0-10.0) ug/mL Laboratory Results - last 24 hr 11/16/16 11/17/16 11/17/16 23:27 00:38 05:22 WBC RBC Hgb Hct MCV MCH MCHC RDW Plt Count MPV Neut % (Auto) Lymph % (Auto) Spencer % (Auto) Eos % (Auto) Baso % (Auto) Neut # Lymph # Spencer # Eos # Baso # Puncture Site Rrad pCO2 51 H pO2 116 H HCO3 27.0 ABG pH 7.36 ABG Total CO2 30.4 H ABG O2 Saturation 99.5 H ABG Base Excess 2.7 ABG Hemoglobin 9.8 L ABG Carboxyhemoglobin 1.7 H POC ABG HHb (Measured) 0.5 ABG Methemoglobin 1.2 Chaz Test Pos A-a O2 Difference 177.0 Respiratory Index 1.5 Hgb O2 Saturation 96.7 Mechanical Rate 14 FiO2 50.0 Tidal Volume 500 PEEP 5 Sodium Potassium Chloride Carbon Dioxide Anion Gap BUN Creatinine Est GFR ( Amer) Est GFR (Non-Af Amer) POC Glucose (mg/dL) 276 H Random Glucose Calcium Phosphorus Magnesium Total Bilirubin AST ALT Alkaline Phosphatase Total Protein Albumin Globulin Albumin/Globulin Ratio Vancomycin Trough 16.1 H 11/17/16 11/17/16 11/17/16 05:54 06:29 06:37 WBC 9.0 RBC 3.23 L Hgb 9.5 L Hct 30.6 L MCV 94.6 D MCH 29.5 MCHC 31.2 L RDW 15.0 H Plt Count 155 MPV 10.1 Neut % (Auto) 75.9 H Lymph % (Auto) 14.6 L Spencer % (Auto) 7.7 Eos % (Auto) 1.7 Baso % (Auto) 0.1 Neut # 6.8 Lymph # 1.3 Spencer # 0.7 Eos # 0.2 Baso # 0.0 Puncture Site pCO2 pO2 HCO3 ABG pH ABG Total CO2 ABG O2 Saturation ABG Base Excess ABG Hemoglobin ABG Carboxyhemoglobin POC ABG HHb (Measured) ABG Methemoglobin Chaz Test A-a O2 Difference Respiratory Index Hgb O2 Saturation Mechanical Rate FiO2 Tidal Volume PEEP Sodium 152 H Potassium 3.1 L Chloride 118 H Carbon Dioxide 26 Anion Gap 11 BUN 35 H Creatinine 0.7 Est GFR ( Amer) > 60 Est GFR (Non-Af Amer) > 60 POC Glucose (mg/dL) 204 H Random Glucose 186 H Calcium 9.1 Phosphorus 2.6 Magnesium 2.3 Total Bilirubin 0.6 AST 10 L ALT 31 Alkaline Phosphatase 61 Total Protein 5.4 L Albumin 2.3 L Globulin 3.1 Albumin/Globulin Ratio 0.7 L Vancomycin Trough 11/17/16 11/17/16 11:46 17:41 WBC RBC Hgb Hct MCV MCH MCHC RDW Plt Count MPV Neut % (Auto) Lymph % (Auto) Spencer % (Auto) Eos % (Auto) Baso % (Auto) Neut # Lymph # Spencer # Eos # Baso # Puncture Site pCO2 pO2 HCO3 ABG pH ABG Total CO2 ABG O2 Saturation ABG Base Excess ABG Hemoglobin ABG Carboxyhemoglobin POC ABG HHb (Measured) ABG Methemoglobin Chaz Test A-a O2 Difference Respiratory Index Hgb O2 Saturation Mechanical Rate FiO2 Tidal Volume PEEP Sodium Potassium Chloride Carbon Dioxide Anion Gap BUN Creatinine Est GFR ( Amer) Est GFR (Non-Af Amer) POC Glucose (mg/dL) 263 H 246 H Random Glucose Calcium Phosphorus Magnesium Total Bilirubin AST ALT Alkaline Phosphatase Total Protein Albumin Globulin Albumin/Globulin Ratio Vancomycin Trough
[2016-11-17 06:46] LABS: BASO % 0.1 % (0.0-2.0); EOS # 0.2 K/uL (0.0-0.7); EOS % 1.7 % (0.0-4.0); HEMATOCRIT 30.6 % (34.0-47.0); LYMPH # 1.3 K/uL (1.0-4.3); LYMPH % 14.6 % (20.0-40.0); MEAN CELL VOLUME 94.6 fL (81.0-99.0); MEAN CORPUSCULAR HEMOGLOBIN 29.5 pg (27.0-31.0); MEAN CORPUSCULAR HGB CONC 31.2 g/dL (33.0-37.0); MEAN PLATELET VOLUME 10.1 fL (7.2-11.7); MONO # 0.7 K/uL (0.0-0.8); MONO % 7.7 % (0.0-10.0); NRBC % 0.1 % (0.0-2.0)
[2016-11-17 06:47] LABS: CHLORIDE 118 mmol/L (98-107); SODIUM 152 mmol/L (132-148)
[2016-11-17 06:48] LABS: POTASSIUM 3.1 mmol/L (3.6-5.2)
[2016-11-17 06:49] LABS: GFR AFRICAN-AMERICAN > 60
[2016-11-17 06:50] LABS: ALB/GLOB RATIO 0.7 (1.0-2.1); ALKALINE PHOSPHATASE 61 U/L (38-126); ALT/SGPT 31 U/L (9-52); AST/SGOT 10 U/L (14-36); BILIRUBIN,TOTAL 0.6 mg/dL (0.2-1.3); BLOOD UREA NITROGEN 35 mg/dL (7-17); CARBON DIOXIDE 26 mmol/L (22-30); GLUCOSE,RANDOM 186 mg/dL (65-105); PHOSPHOROUS 2.6 mg/dL (2.5-4.5); TOTAL PROTEIN 5.4 g/dL (6.3-8.3)
[2016-11-17 06:51] LABS: CALCIUM 9.1 mg/dl (8.6-10.4); MAGNESIUM 2.3 mg/dL (1.6-2.3)
--- NOTE | 2016-11-17 08:22 | CP.PCM.PN ---
Subjective - Date & Time of Evaluation Date of Evaluation: 11/17/16 Time of Evaluation: 08:19 - Subjective Subjective: PGY-1 note for Cardiothoracic Surgery, Dr. Avalos Pt S&E. Nursing notes indicate fever overnight. Pt remains intubated on ventilation, thus unable to obtain ROS. Objective - Vital Signs/Intake and Output Vital Signs (last 24 hours): Temp Pulse Resp BP Pulse Ox 98.5 F 81 18 133/59 L 95 11/17/16 04:00 11/17/16 07:00 11/17/16 07:00 11/17/16 06:58 11/17/16 07:00 Intake and Output: 11/17/16 11/17/16 06:59 18:59 Intake Total 1565 Output Total 640 Balance 925 - Medications Medications: Current Medications Acetaminophen (Tylenol 650mg/20.3ml Solution Ud) 650 mg GT Q6 PRN PRN Reason: Fever >100.4 F Last Admin: 11/16/16 08:59 Dose: 650 mg Amiodarone HCl (Cordarone) 200 mg PO Q8H [facility] Last Admin: 11/17/16 02:38 Dose: 200 mg Diltiazem HCl (Cardizem) 60 mg PO Q6 [facility] Last Admin: 11/17/16 05:59 Dose: 60 mg Enoxaparin Sodium (Lovenox) 110 mg SC Q12 [facility] Last Admin: 11/16/16 21:05 Dose: 110 mg Propofol (Diprivan) 100 mls @ 3.493 mls/hr IV .Q24H PRN; Protocol; 5 MCG/KG/MIN PRN Reason: TITRATE PER MD ORDER Last Titration: 11/14/16 07:00 Dose: 0 mcg/kg/min Diltiazem HCl 125 mg/ Sodium (Chloride) 125 mls @ 5 mls/hr IV .Q24H [facility]; 5 MG/ HR PRN Reason: Protocol Last Titration: 11/17/16 00:00 Dose: 0 mg/hr Imipenem/Cilastatin Sodium 1, (000 mg/ Sodium Chloride) 250 mls @ 250 mls/hr IVPB Q8H [facility] Last Admin: 11/17/16 04:25 Dose: 250 mls/hr Vancomycin HCl 1,500 mg/ (Sodium Chloride) 500 mls @ 250 mls/hr IVPB Q12H [facility] Last Admin: 11/17/16 00:04 Dose: 250 mls/hr Insulin Glargine (Lantus) 20 unit SC 0800,2000 [facility] Last Admin: 11/16/16 20:46 Dose: 20 units Insulin Human Regular (Novolin R) 4 unit SC Q6 [facility] PRN Reason: Protocol Last Admin: 11/17/16 05:59 Dose: 4 unit Methimazole (Tapazole) 10 mg PO BID [facility] Last Admin: 11/16/16 19:03 Dose: 10 mg Methylprednisolone (Solu-Medrol) 10 mg IVP DAILY [facility] Metoprolol Succinate (Toprol Xl) 12.5 mg PO DAILY [facility] Last Admin: 11/16/16 16:42 Dose: Not Given Nystatin (Mycostatin Cream) 0 ea TOP TID [facility] Last Admin: 11/16/16 19:08 Dose: 1 applic Pantoprazole Sodium (Protonix Inj) 40 mg IVP DAILY [facility] Last Admin: 11/16/16 10:26 Dose: 40 mg Vitamin A (Vitamin A & D Oint Ud Foilpak) 1 ea TOP BID [facility] Last Admin: 11/16/16 19:18 Dose: Not Given - Labs Labs: 11/17/16 06:37 11/17/16 06:29 PT 12.0 SECONDS (9.7-12.2) 11/13/16 04:57 INR 1.1 11/13/16 04:57 APTT 38 SECONDS (21-34) H D 11/13/16 04:57 - Constitutional Appears: No Acute Distress, Chronically Ill - Head Exam Head Exam: ATRAUMATIC, NORMAL INSPECTION, NORMOCEPHALIC - Eye Exam Eye Exam: EOMI, Normal appearance Pupil Exam: PERRL - Respiratory Exam Additional comments: intubated on mechanical ventilation - Cardiovascular Exam Cardiovascular Exam: REGULAR RHYTHM, +S1, +S2 - Extremities Exam Extremities Exam: Normal Inspection - Neurological Exam Neurological Exam: Alert - Psychiatric Exam Psychiatric exam: Normal Affect, Normal Mood - Skin Skin Exam: Normal Color, Warm Assessment and Plan - Assessment and Plan (Free Text) Assessment: 61 y/o female w/ respiratory failure, intubated on 11/08, w/ bilateral pleural effusions Plan: No surgical intervention at this time Recommend daily bronchs Surgical team d/w Dr. Robbie Whiteside, PGY-1
--- NOTE | 2016-11-17 08:28 | CP.PCM.PN ---
Subjective - Date & Time of Evaluation Date of Evaluation: 11/17/16 Time of Evaluation: 07:00 - Subjective Subjective: patient seen and examined in the intensive care unit. Much more awake On ventilatory support Status post bronchoscopy yesterday with copious amount of secretions Afebrile Tolerating feeding Seen by CT surgery Objective - Vital Signs/Intake and Output Vital Signs (last 24 hours): Temp Pulse Resp BP Pulse Ox 98.5 F 81 18 133/59 L 95 11/17/16 04:00 11/17/16 07:00 11/17/16 07:00 11/17/16 06:58 11/17/16 07:00 Intake and Output: 11/17/16 11/17/16 06:59 18:59 Intake Total 2215 50 Output Total 780 45 Balance 1435 5 - Medications Medications: Current Medications Acetaminophen (Tylenol 650mg/20.3ml Solution Ud) 650 mg GT Q6 PRN PRN Reason: Fever >100.4 F Last Admin: 11/16/16 08:59 Dose: 650 mg Amiodarone HCl (Cordarone) 200 mg PO Q8H [facility] Last Admin: 11/17/16 02:38 Dose: 200 mg Diltiazem HCl (Cardizem) 60 mg PO Q6 [facility] Last Admin: 11/17/16 05:59 Dose: 60 mg Enoxaparin Sodium (Lovenox) 110 mg SC Q12 [facility] Last Admin: 11/16/16 21:05 Dose: 110 mg Propofol (Diprivan) 100 mls @ 3.493 mls/hr IV .Q24H PRN; Protocol; 5 MCG/KG/MIN PRN Reason: TITRATE PER MD ORDER Last Titration: 11/14/16 07:00 Dose: 0 mcg/kg/min Diltiazem HCl 125 mg/ Sodium (Chloride) 125 mls @ 5 mls/hr IV .Q24H [facility]; 5 MG/ HR PRN Reason: Protocol Last Titration: 11/17/16 00:00 Dose: 0 mg/hr Imipenem/Cilastatin Sodium 1, (000 mg/ Sodium Chloride) 250 mls @ 250 mls/hr IVPB Q8H [facility] Last Admin: 11/17/16 04:25 Dose: 250 mls/hr Vancomycin HCl 1,500 mg/ (Sodium Chloride) 500 mls @ 250 mls/hr IVPB Q12H [facility] Last Admin: 11/17/16 00:04 Dose: 250 mls/hr Insulin Glargine (Lantus) 20 unit SC 0800,2000 [facility] Last Admin: 11/16/16 20:46 Dose: 20 units Insulin Human Regular (Novolin R) 4 unit SC Q6 [facility] PRN Reason: Protocol Last Admin: 11/17/16 05:59 Dose: 4 unit Methimazole (Tapazole) 10 mg PO BID [facility] Last Admin: 11/16/16 19:03 Dose: 10 mg Methylprednisolone (Solu-Medrol) 10 mg IVP DAILY [facility] Metoprolol Succinate (Toprol Xl) 12.5 mg PO DAILY [facility] Last Admin: 11/16/16 16:42 Dose: Not Given Nystatin (Mycostatin Cream) 0 ea TOP TID [facility] Last Admin: 11/16/16 19:08 Dose: 1 applic Pantoprazole Sodium (Protonix Inj) 40 mg IVP DAILY [facility] Last Admin: 11/16/16 10:26 Dose: 40 mg Vitamin A (Vitamin A & D Oint Ud Foilpak) 1 ea TOP BID [facility] Last Admin: 11/16/16 19:18 Dose: Not Given - Labs Labs: 11/17/16 06:37 11/17/16 06:29 PT 12.0 SECONDS (9.7-12.2) 11/13/16 04:57 INR 1.1 11/13/16 04:57 APTT 38 SECONDS (21-34) H D 11/13/16 04:57 - Head Exam Head Exam: ATRAUMATIC, NORMOCEPHALIC - Eye Exam Eye Exam: Normal appearance - ENT Exam ENT Exam: Mucous Membranes Moist - Neck Exam Neck Exam: Normal Inspection - Respiratory Exam Respiratory Exam: Decreased Breath Sounds - Cardiovascular Exam Cardiovascular Exam: Irregular Rhythm - GI/Abdominal Exam GI & Abdominal Exam: Soft, Normal Bowel Sounds - Extremities Exam Extremities Exam: Pedal Edema - Neurological Exam Neurological Exam: Alert Assessment and Plan (1) Respiratory failure with hypoxia Assessment & Plan: status post bronchoscopy 2 with copious amount of secretions for left lung atelectasis See by CT surgery continue antibiotics cPAP trial Status: Acute (2) Atrial fibrillation with rapid ventricular response Status: Acute (3) Bilateral lower leg cellulitis Status: Acute (4) Hyperosmolar non-ketotic state in patient with type 2 diabetes mellitus Status: Acute
[2016-11-17] MEDS: (Lantus) Insulin Glargine, Recombinant SC SCH (08:34)
[2016-11-17] MEDS ORDERED: (Lantus) Insulin Glargine, Recombinant SC SCH (08:38)
[2016-11-17] MEDS ORDERED: Potassium Chloride 20 mEq/15 ml LIQ UD PO ONE (08:45)
--- NOTE | 2016-11-17 09:21 | RAD ---
HISTORY: intubated COMPARISON: 11/16/2016 FINDINGS: LUNGS: Lines and tubes stable position. Mild to moderate venous congestion. Left basilar airspace opacity with small to moderate left pleural effusion. PLEURA: As above. CARDIOVASCULAR: Mild cardiomegaly. Calcification at the aortic knob. OSSEOUS STRUCTURES: No significant abnormalities. VISUALIZED UPPER ABDOMEN: Normal. OTHER FINDINGS: None. IMPRESSION: No significant interval change.
[2016-11-17] MEDS: Nystatin 100,000 Units/gm Cream(15 gm) TOP SCH ×3 (09:38→17:50)
[2016-11-17] MEDS: Enoxaparin 120 mg Syringe SC SCH ×2 (09:38→23:00)
[2016-11-17] MEDS: Metoprolol Succinate 12.5 mg XL PO SCH (09:39)
[2016-11-17] MEDS: MethylPREDNISolone 40 mg Vial IVP SCH (09:39)
[2016-11-17] MEDS: Vitamins A & D Oint UD Foilpak TOP SCH ×2 (09:40→17:52)
--- NOTE | 2016-11-17 20:22 | CP.PCM.PN ---
Subjective - Date & Time of Evaluation Date of Evaluation: 11/17/16 Time of Evaluation: 20:19 - Subjective Subjective: uncontrolled IDDM & hyperthyroidism Objective - Vital Signs/Intake and Output Vital Signs (last 24 hours): Temp Pulse Resp BP Pulse Ox 98.9 F 67 14 112/50 L 100 11/17/16 16:00 11/17/16 19:00 11/17/16 19:00 11/17/16 18:58 11/17/16 19:00 Intake and Output: 11/17/16 11/18/16 18:59 06:59 Intake Total 2252.5 57 Output Total 625 40 Balance 1627.5 17 - Medications Medications: Current Medications Acetaminophen (Tylenol 650mg/20.3ml Solution Ud) 650 mg GT Q6 PRN PRN Reason: Fever >100.4 F Last Admin: 11/16/16 08:59 Dose: 650 mg Amiodarone HCl (Cordarone) 200 mg PO Q8H [facility] Last Admin: 11/17/16 17:50 Dose: 200 mg Diltiazem HCl (Cardizem) 60 mg PO Q6 [facility] Last Admin: 11/17/16 17:51 Dose: 60 mg Enoxaparin Sodium (Lovenox) 110 mg SC Q12 [facility] Last Admin: 11/17/16 09:38 Dose: 110 mg Propofol (Diprivan) 100 mls @ 3.493 mls/hr IV .Q24H PRN; Protocol; 5 MCG/KG/MIN PRN Reason: TITRATE PER MD ORDER Last Admin: 11/17/16 19:40 Dose: 6.986 mls/hr Imipenem/Cilastatin Sodium 1, (000 mg/ Sodium Chloride) 250 mls @ 250 mls/hr IVPB Q8H [facility] Last Admin: 11/17/16 20:00 Dose: 250 mls/hr Vancomycin HCl 1,500 mg/ (Sodium Chloride) 500 mls @ 250 mls/hr IVPB Q12H [facility] Last Admin: 11/17/16 11:45 Dose: 250 mls/hr Insulin Glargine (Lantus) 22 unit SC 0800,2000 [facility] Insulin Human Regular (Novolin R) 0 unit SC Q6 [facility] PRN Reason: Protocol Last Admin: 11/17/16 17:49 Dose: 4 unit Methimazole (Tapazole) 10 mg PO TID [facility] Methylprednisolone (Solu-Medrol) 10 mg IVP DAILY [facility] Last Admin: 11/17/16 09:39 Dose: 10 mg Metoprolol Succinate (Toprol Xl) 12.5 mg PO DAILY [facility] Last Admin: 11/17/16 09:39 Dose: 12.5 mg Nystatin (Mycostatin Cream) 0 ea TOP TID [facility] Last Admin: 11/17/16 17:50 Dose: 1 applic Pantoprazole Sodium (Protonix Inj) 40 mg IVP DAILY [facility] Last Admin: 11/17/16 09:39 Dose: 40 mg Vitamin A (Vitamin A & D Oint Ud Foilpak) 1 ea TOP BID [facility] Last Admin: 11/17/16 17:52 Dose: 1 ea - Labs Labs: 11/17/16 06:37 11/17/16 06:29 PT 12.0 SECONDS (9.7-12.2) 11/13/16 04:57 INR 1.1 11/13/16 04:57 APTT 38 SECONDS (21-34) H D 11/13/16 04:57 Assessment and Plan (1) Diabetes mellitus, insulin dependent (IDDM), uncontrolled Assessment & Plan: Endocrine consult reason for consult: uncontrolled diabetes source : chrart review , pt awake , alert with OGT tube for bleeding unable to give history & as per chart review poor historian is 61 y/o admitted for a fib with rapid venttirucular resonse & DKA / bilateral lower extremities cellulites ,pt was intubated & also started on insulin drip glucose on admission 1023 . also was started on steroid 40 mg po bid , endocrine was contacted yesterday 11/12 for uncontrolled IDDM glucose in 300- 400 , lantus was changed to 10 bid & d/c novolog coverage high dose , start humalin R low dose coverage q6h & start humalin R 4 units q6h while on continous feeding . & also pt with hyperthyroidism started on tapazole 5 mg po tid blood glucose log :180- 200's , now on steroid 10 mg qd NO hypoglycemia Allergy NKDA Past medical history : HTN , pedal edema Past surgical history : not documented Psychiatry history : (+) psychiatry disorder Social history : (+)smoking , ETOH use , illicit drug use Family history : unknown ROS: Constitutional: no fever ,tiredness/weakness .HEENT: no earache, change in voice .Respiratory: no cough, sob . CVS :no chest pain, no palpitations . Abdomen : no abdominal pain, no nausea /vomiting , no change bowel movement . [employer] : no light-headedness, dizziness. Extremities : (+) edema , no tremors . Skin: no itching, no rash Physical exam Well developed intubated , on continuos feeding bp 112/59 pulse 72 , T 98.9 HEENT: norm cephalic, atraumatic , no lid lag , no exophthalmos , mild stare NECK: supple, no palpable lymphadenopathy THYROID: unable to palpable thyroid , not tender CHEST: fair air entry, bilateral, CVS: S1,S2 , ABDOMEN: bowel sound present, benign, obese, no wide purple striae , no bruises EXTREMITIES: bilateral hyper pigmented skin with edema, clubbing or cyanosis, no palpable hand tremors Skin : acanthosis nigricans lab: 11/16 FT4 2.59 , tsh <0.02 , T4 8.88 , wbc 9 , LFT wnl thyroid antibodies (-) tsh < 0.02 ,ft4 2.31 , t4 12.1 , a1c 14 , wbc 10.4 Assessment uncontrolled IDDM steroids induced hyperglycemia hyperthyroidisim with afib , on cardiazem & lopressor bilateral cellutitis a fib bleeding /fever /sepsis obesity Plan -increase lantus 22 units bid continue humalin R low dose coverage q6h off humalin R 4 units q6h if glucose >200 increase tapazole 10 mg po tid monior thyroid function Status: Chronic (2) Hyperthyroidism Status: Chronic (3) Atrial fibrillation with rapid ventricular response Status: Acute (4) Bilateral lower leg cellulitis Status: Acute (5) Steroid-induced hyperglycemia Status: Acute
[2016-11-18] MEDS: (Novolin R) Insulin Human Regular 100 units/ml vial SC SCH ×4 (00:25→18:36)
[2016-11-18 05:27] LABS: ABG ALLEN TEST POS; ABG MECHANICAL RATE 14; ARTERIAL BLOOD HGB O2 SAT 96.9 % (95.0-98.0); ATERIAL BLOOD GAS PEEP 5; CARBOXYHEMOGLOBIN 1.8 % (0.5-1.5); DRAW SITE RR; HHB 0.3 % (0.0-5.0)
[2016-11-18 06:25] LABS: BASO % 0.5 % (0.0-2.0); EOS # 0.1 K/uL (0.0-0.7); EOS % 1.7 % (0.0-4.0); HEMATOCRIT 31.3 % (34.0-47.0); LYMPH # 0.9 K/uL (1.0-4.3); LYMPH % 13.1 % (20.0-40.0); MEAN CELL VOLUME 92.3 fL (81.0-99.0); MEAN CORPUSCULAR HEMOGLOBIN 28.7 pg (27.0-31.0); MEAN CORPUSCULAR HGB CONC 31.1 g/dL (33.0-37.0); MEAN PLATELET VOLUME 10.3 fL (7.2-11.7); MONO # 0.6 K/uL (0.0-0.8); MONO % 8.3 % (0.0-10.0); NRBC % 0.1 % (0.0-2.0); RED CELL DISTRIBUTION WIDTH 14.8 % (11.5-14.5); WHITE BLOOD COUNT 7.2 K/uL (4.8-10.8)
[2016-11-18 06:43] LABS: CHLORIDE 115 mmol/L (98-107); POTASSIUM 3.6 mmol/L (3.6-5.2); SODIUM 150 mmol/L (132-148)
[2016-11-18 06:45] LABS: BILIRUBIN,TOTAL 0.6 mg/dL (0.2-1.3); GFR AFRICAN-AMERICAN > 60
[2016-11-18 06:46] LABS: ALB/GLOB RATIO 0.7 (1.0-2.1); ALKALINE PHOSPHATASE 62 U/L (38-126); ALT/SGPT 29 U/L (9-52); AST/SGOT 14 U/L (14-36); BLOOD UREA NITROGEN 39 mg/dL (7-17); CALCIUM 9.3 mg/dl (8.6-10.4); CARBON DIOXIDE 28 mmol/L (22-30); GLUCOSE,RANDOM 177 mg/dL (65-105); PHOSPHOROUS 2.6 mg/dL (2.5-4.5); TOTAL PROTEIN 5.4 g/dL (6.3-8.3)
[2016-11-18 06:47] LABS: MAGNESIUM 2.2 mg/dL (1.6-2.3)
[2016-11-18] MEDS: (Lantus) Insulin Glargine, Recombinant SC SCH ×2 (07:53→21:39)
--- NOTE | 2016-11-18 08:14 | CP.PCM.PN ---
Subjective - Date & Time of Evaluation Date of Evaluation: 11/18/16 Time of Evaluation: 06:45 - Subjective Subjective: Patient seen and examined in the intensive care unit. Remains intubated on ventilatory support Much more awake and responsive Tolerating CPAP Afebrile Still has copious secretions from the ET tube Tolerating feeding Objective - Vital Signs/Intake and Output Vital Signs (last 24 hours): Temp Pulse Resp BP Pulse Ox 98.5 F 79 14 125/60 97 11/18/16 04:00 11/18/16 07:01 11/18/16 07:01 11/18/16 07:01 11/18/16 07:01 Intake and Output: 11/18/16 11/18/16 06:59 18:59 Intake Total 2607.4 56.4 Output Total 585 60 Balance 2022.4 -3.6 - Medications Medications: Current Medications Acetaminophen (Tylenol 650mg/20.3ml Solution Ud) 650 mg GT Q6 PRN PRN Reason: Fever >100.4 F Last Admin: 11/16/16 08:59 Dose: 650 mg Amiodarone HCl (Cordarone) 200 mg PO Q8H [facility] Last Admin: 11/18/16 02:55 Dose: 200 mg Diltiazem HCl (Cardizem) 60 mg PO Q6 [facility] Last Admin: 11/18/16 05:10 Dose: 60 mg Enoxaparin Sodium (Lovenox) 110 mg SC Q12 [facility] Last Admin: 11/17/16 23:00 Dose: 110 mg Propofol (Diprivan) 100 mls @ 3.493 mls/hr IV .Q24H PRN; Protocol; 5 MCG/KG/MIN PRN Reason: TITRATE PER MD ORDER Last Admin: 11/18/16 06:15 Dose: 6.986 mls/hr Imipenem/Cilastatin Sodium 1, (000 mg/ Sodium Chloride) 250 mls @ 250 mls/hr IVPB Q8H [facility] Last Admin: 11/18/16 05:00 Dose: 250 mls/hr Vancomycin HCl 1,500 mg/ (Sodium Chloride) 500 mls @ 250 mls/hr IVPB Q12H [facility] Last Admin: 11/17/16 23:00 Dose: 250 mls/hr Insulin Glargine (Lantus) 22 unit SC 0800,1999 [facility] Last Admin: 11/18/16 07:53 Dose: 22 u Insulin Human Regular (Novolin R) 0 unit SC Q6 [facility] PRN Reason: Protocol Last Admin: 11/18/16 05:15 Dose: 4 unit Methimazole (Tapazole) 10 mg PO TID [facility] Methylprednisolone (Solu-Medrol) 10 mg IVP DAILY [facility] Last Admin: 11/17/16 09:39 Dose: 10 mg Metoprolol Succinate (Toprol Xl) 12.5 mg PO DAILY [facility] Last Admin: 11/17/16 09:39 Dose: 12.5 mg Nystatin (Mycostatin Cream) 0 ea TOP TID [facility] Last Admin: 11/17/16 17:50 Dose: 1 applic Pantoprazole Sodium (Protonix Inj) 40 mg IVP DAILY [facility] Last Admin: 11/17/16 09:39 Dose: 40 mg Vitamin A (Vitamin A & D Oint Ud Foilpak) 1 ea TOP BID [facility] Last Admin: 11/17/16 17:52 Dose: 1 ea - Labs Labs: 11/18/16 06:18 11/18/16 06:18 PT 12.0 SECONDS (9.7-12.2) 11/13/16 04:57 INR 1.1 11/13/16 04:57 APTT 38 SECONDS (21-34) H D 11/13/16 04:57 - Head Exam Head Exam: ATRAUMATIC, NORMOCEPHALIC - ENT Exam ENT Exam: Mucous Membranes Moist - Neck Exam Neck Exam: Normal Inspection - Respiratory Exam Respiratory Exam: Decreased Breath Sounds - Cardiovascular Exam Cardiovascular Exam: Irregular Rhythm - GI/Abdominal Exam GI & Abdominal Exam: Soft, Normal Bowel Sounds - Extremities Exam Extremities Exam: Pedal Edema - Neurological Exam Neurological Exam: Awake Assessment and Plan (1) Respiratory failure with hypoxia Assessment & Plan: CPAP trial Continue antibiotics Still has copious secretions from the ET tube Continue feeding Status: Acute (2) Atrial fibrillation with rapid ventricular response Status: Acute (3) Bilateral lower leg cellulitis Status: Acute (4) Hyperosmolar non-ketotic state in patient with type 2 diabetes mellitus Status: Acute
--- NOTE | 2016-11-18 08:39 | RAD ---
HISTORY: intubated COMPARISON: 11/17/2016 FINDINGS: LUNGS: Lines and tubes in stable position. Moderate to severe venous congestion with prominent bibasilar airspace opacities. Moderate left and small right pleural effusion. Biapical pleural thickening with upper lobe granulomatous changes. . PLEURA: As above. CARDIOVASCULAR: Cardiomegaly. OSSEOUS STRUCTURES: Degenerative changes in the spine and shoulders. VISUALIZED UPPER ABDOMEN: Normal. OTHER FINDINGS: None. IMPRESSION: Lines and tubes in stable position. Moderate to severe venous congestion with prominent bibasilar airspace opacities. Moderate left and small right pleural effusion. Biapical pleural thickening with upper lobe granulomatous changes. .
[2016-11-18] MEDS: Metoprolol Succinate 12.5 mg XL PO SCH (09:50)
[2016-11-18] MEDS: Enoxaparin 120 mg Syringe SC SCH ×2 (09:50→21:44)
[2016-11-18] MEDS: MethylPREDNISolone 40 mg Vial IVP SCH (09:51)
[2016-11-18] MEDS: Vitamins A & D Oint UD Foilpak TOP SCH ×2 (09:53→18:40)
[2016-11-18] MEDS: Nystatin 100,000 Units/gm Cream(15 gm) TOP SCH ×3 (09:54→18:40)
[2016-11-18] MEDS ORDERED: EPINEPHrine 1 mg/ml (1:1000) Inj ONE (13:29)
[2016-11-18] MEDS ORDERED: Lidocaine 2% Inj (20ml) ONE (13:29)
[2016-11-18] MEDS ORDERED: Midazolam 2 MG/2 ML VIAL IVP ONE (14:00)
[2016-11-18] MEDS ORDERED: Midazolam 2 MG/2 ML VIAL ONE (14:19)
[2016-11-18] MEDS ORDERED: Sodium Bicarbonate (8.4%) 50 Meq Syringe ONE (14:23)
--- NOTE | 2016-11-18 17:32 | CP.CCUPN ---
<AmmyEstebanivanaMorena - Last Filed: 11/18/16 17:53> CCU Objective - Vital Signs / Intake & Output Intake and Output (Last 8hrs): Intake & Output 11/18/16 11/18/16 11/18/16 06:59 14:59 22:59 Intake Total 1881.2 469.2 Output Total 345 235 Balance 1536.2 234.2 Weight 238 lb 1.588 oz Intake: Intake, IV Amount 801.2 19.2 Right Distal Port 750 Right Medial Port 51.2 19.2 Internal Jugular Oral 680 Tube Feeding 400 250 Other 200 Output: Urine 345 235 Urethral ([place]) 345 235 Other: # Bowel Movements 0 - Medications Active Medications: Active Medications Generic Name Dose Route Start Last Admin Trade Name Freq PRN Reason Stop Dose Admin Acetaminophen 650 mg 11/14/16 20:10 11/16/16 08:59 Tylenol 650mg/20.3ml Solution Ud GT 650 mg Q6 PRN Administration Fever >100.4 F Amiodarone HCl 200 mg 11/15/16 18:00 11/18/16 09:53 Cordarone PO 200 mg Q8H CRISTOBAL Administration Diltiazem HCl 60 mg 11/15/16 12:00 11/18/16 12:34 Cardizem PO 60 mg Q6 CRISTOBAL Administration Enoxaparin Sodium 110 mg 11/15/16 22:00 11/18/16 09:50 Lovenox SC 110 mg Q12 CRISTOBAL Administration Propofol 100 mls @ 3.493 mls/hr 11/08/16 08:29 11/18/16 06:15 Diprivan IV 6.986 mls/hr .Q24H PRN Administration TITRATE PER MD ORDER Protocol 5 MCG/KG/MIN Imipenem/Cilastatin Sodium 1, 250 mls @ 250 mls/hr 11/15/16 13:00 11/18/16 12: 34 000 mg/ Sodium Chloride IVPB 250 mls/hr Q8H CRISTOBAL Administration Vancomycin/Sodium Chloride 200 mls @ 166.6 mls/hr 11/19/16 10:00 Vancocin IVPB Q12H CRISTOBAL Insulin Glargine 22 unit 11/17/16 20:17 11/18/16 07:53 Lantus SC 22 u 0800,2000 C[facility]ST[facility]AL Administration Insulin Human Regular 0 unit 11/17/16 08:38 11/18/16 12:28 Novolin R SC Not Given Q6 [facility] Protocol Methimazole 10 mg 11/18/16 10:00 11/18/16 15:10 Tapazole PO 10 mg TID CRISTOBAL Administration Methylprednisolone 10 mg 11/17/16 10:00 11/18/16 09:51 Solu-Medrol IVP 10 mg DAILY CRISTOBAL Administration Metoprolol Succinate 12.5 mg 11/16/16 10:30 11/18/16 09:50 Toprol Xl PO 12.5 mg DAILY CRISTOBAL Administration Nystatin 0 ea 11/04/16 18:00 11/18/16 15:01 Mycostatin Cream TOP 1 applic TID CRISTOBAL Administration Pantoprazole Sodium 40 mg 11/04/16 16:45 11/18/16 09:50 Protonix Inj IVP 40 mg DAILY CRISTOBAL Administration Vitamin A 1 ea 11/09/16 18:00 11/18/16 09:53 Vitamin A & D Oint Ud Foilpak TOP 1 ea BID CRISTOBAL Administration - Patient Studies Lab Studies: Microbiology Studies 11/15/16 12:15 Blood Culture - Preliminary Blood-Thru Central Line NO GROWTH AFTER 3 DAYS 11/15/16 12:45 Blood Culture - Preliminary Blood-Thru Central Line NO GROWTH AFTER 3 DAYS 11/15/16 14:16 Bronchial Culture - Final Bronchial Washings Methicillin Resistant S Aureus Lab Studies 11/18/16 11/18/16 11/18/16 Range/Units 14:22 11:19 06:18 WBC 7.2 (4.8-10.8) K/uL RBC 3.39 L (3.80-5.20) Mil/uL Hgb 9.7 L (11.0-16.0) g/dL Hct 31.3 L (34.0-47.0) % MCV 92.3 D (81.0-99.0) fL MCH 28.7 (27.0-31.0) pg MCHC 31.1 L (33.0-37.0) g/dL RDW 14.8 H (11.5-14.5) % Plt Count 164 (130-400) K/uL MPV 10.3 (7.2-11.7) fL Neut % (Auto) 76.4 H (50.0-75.0) % Lymph % (Auto) 13.1 L (20.0-40.0) % [place] % (Auto) 8.3 (0.0-10.0) % Eos % (Auto) 1.7 (0.0-4.0) % Baso % (Auto) 0.5 (0.0-2.0) % Neut # 5.5 (1.8-7.0) K/uL Lymph # 0.9 L (1.0-4.3) K/uL [place] # 0.6 (0.0-0.8) K/uL Eos # 0.1 (0.0-0.7) K/uL Baso # 0.0 (0.0-0.2) K/uL Puncture Site pCO2 (35-45) mm/Hg pO2 (80-100) mm/Hg HCO3 (21-28) mmol/L ABG pH (7.35-7.45) ABG Total CO2 (22-28) mmol/L ABG O2 Saturation (95-98) % ABG Base Excess (-2.0-3.0) mmol/L ABG Hemoglobin (11.7-17.4) g/dL ABG Carboxyhemoglobin (0.5-1.5) % POC ABG HHb (Measured) (0.0-5.0) % ABG Methemoglobin (0.0-3.0) % Chaz Test A-a O2 Difference mm/Hg Respiratory Index Hgb O2 Saturation (95.0-98.0) % Mechanical Rate FiO2 % Tidal Volume PEEP Sodium 150 H (132-148) mmol/L Potassium 3.6 (3.6-5.2) mmol/L Chloride 115 H (98-107) mmol/L Carbon Dioxide 28 (22-30) mmol/L Anion Gap 11 (10-20) BUN 39 H (7-17) mg/dL Creatinine 0.6 L (0.7-1.2) MG/DL Est GFR ( Amer) > 60 Est GFR (Non-Af Amer) > 60 POC Glucose (mg/dL) 147 H (65-110) mg/dL Random Glucose 177 H (65-105) mg/dL Calcium 9.3 (8.6-10.4) mg/dl Phosphorus 2.6 (2.5-4.5) mg/dL Magnesium 2.2 (1.6-2.3) mg/dL Total Bilirubin 0.6 (0.2-1.3) mg/dL AST 14 D (14-36) U/L ALT 29 (9-52) U/L Alkaline Phosphatase 62 (38-126) U/L Total Protein 5.4 L (6.3-8.3) g/dL Albumin 2.2 L (3.5-5.0) g/dL Globulin 3.2 (2.2-3.9) gm/dL Albumin/Globulin Ratio 0.7 L (1.0-2.1) Vancomycin Trough 22.2 H (5.0-10.0) ug/mL 11/18/16 11/18/16 11/18/16 Range/Units 05:20 05:04 00:17 WBC (4.8-10.8) K/uL RBC (3.80-5.20) Mil/uL Hgb (11.0-16.0) g/dL Hct (34.0-47.0) % MCV (81.0-99.0) fL MCH (27.0-31.0) pg MCHC (33.0-37.0) g/dL RDW (11.5-14.5) % Plt Count (130-400) K/uL MPV (7.2-11.7) fL Neut % (Auto) (50.0-75.0) % Lymph % (Auto) (20.0-40.0) % [place] % (Auto) (0.0-10.0) % Eos % (Auto) (0.0-4.0) % Baso % (Auto) (0.0-2.0) % Neut # (1.8-7.0) K/uL Lymph # (1.0-4.3) K/uL [place] # (0.0-0.8) K/uL Eos # (0.0-0.7) K/uL Baso # (0.0-0.2) K/uL Puncture Site Rr pCO2 44 (35-45) mm/Hg pO2 128 H (80-100) mm/Hg HCO3 26.7 (21-28) mmol/L ABG pH 7.40 (7.35-7.45) ABG Total CO2 28.7 H (22-28) mmol/L ABG O2 Saturation 99.7 H (95-98) % ABG Base Excess 2.2 (-2.0-3.0) mmol/L ABG Hemoglobin 9.9 L (11.7-17.4) g/dL ABG Carboxyhemoglobin 1.8 H (0.5-1.5) % POC ABG HHb (Measured) 0.3 (0.0-5.0) % ABG Methemoglobin 1.0 (0.0-3.0) % Chaz Test Pos A-a O2 Difference 102.0 mm/Hg Respiratory Index 0.8 Hgb O2 Saturation 96.9 (95.0-98.0) % Mechanical Rate 14 FiO2 40.0 % Tidal Volume 500 PEEP 5 Sodium (132-148) mmol/L Potassium (3.6-5.2) mmol/L Chloride (98-107) mmol/L Carbon Dioxide (22-30) mmol/L Anion Gap (10-20) BUN (7-17) mg/dL Creatinine (0.7-1.2) MG/DL Est GFR ( Amer) Est GFR (Non-Af Amer) POC Glucose (mg/dL) 211 H 249 H (65-110) mg/dL Random Glucose (65-105) mg/dL Calcium (8.6-10.4) mg/dl Phosphorus (2.5-4.5) mg/dL Magnesium (1.6-2.3) mg/dL Total Bilirubin (0.2-1.3) mg/dL AST (14-36) U/L ALT (9-52) U/L Alkaline Phosphatase (38-126) U/L Total Protein (6.3-8.3) g/dL Albumin (3.5-5.0) g/dL Globulin (2.2-3.9) gm/dL Albumin/Globulin Ratio (1.0-2.1) Vancomycin Trough (5.0-10.0) ug/mL Laboratory Results - last 24 hr 11/18/16 11/18/16 11/18/16 00:17 05:04 05:20 WBC RBC Hgb Hct MCV MCH MCHC RDW Plt Count MPV Neut % (Auto) Lymph % (Auto) [place] % (Auto) Eos % (Auto) Baso % (Auto) Neut # Lymph # [place] # Eos # Baso # Puncture Site Rr pCO2 44 pO2 128 H HCO3 26.7 ABG pH 7.40 ABG Total CO2 28.7 H ABG O2 Saturation 99.7 H ABG Base Excess 2.2 ABG Hemoglobin 9.9 L ABG Carboxyhemoglobin 1.8 H POC ABG HHb (Measured) 0.3 ABG Methemoglobin 1.0 Chaz Test Pos A-a O2 Difference 102.0 Respiratory Index 0.8 Hgb O2 Saturation 96.9 Mechanical Rate 14 FiO2 40.0 Tidal Volume 500 PEEP 5 Sodium Potassium Chloride Carbon Dioxide Anion Gap BUN Creatinine Est GFR ( Amer) Est GFR (Non-Af Amer) POC Glucose (mg/dL) 249 H 211 H Random Glucose Calcium Phosphorus Magnesium Total Bilirubin AST ALT Alkaline Phosphatase Total Protein Albumin Globulin Albumin/Globulin Ratio Vancomycin Trough 11/18/16 11/18/16 11/18/16 06:18 11:19 14:22 WBC 7.2 RBC 3.39 L Hgb 9.7 L Hct 31.3 L MCV 92.3 D MCH 28.7 MCHC 31.1 L RDW 14.8 H Plt Count 164 MPV 10.3 Neut % (Auto) 76.4 H Lymph % (Auto) 13.1 L [place] % (Auto) 8.3 Eos % (Auto) 1.7 Baso % (Auto) 0.5 Neut # 5.5 Lymph # 0.9 L [place] # 0.6 Eos # 0.1 Baso # 0.0 Puncture Site pCO2 pO2 HCO3 ABG pH ABG Total CO2 ABG O2 Saturation ABG Base Excess ABG Hemoglobin ABG Carboxyhemoglobin POC ABG HHb (Measured) ABG Methemoglobin Chaz Test A-a O2 Difference Respiratory Index Hgb O2 Saturation Mechanical Rate FiO2 Tidal Volume PEEP Sodium 150 H Potassium 3.6 Chloride 115 H Carbon Dioxide 28 Anion Gap 11 BUN 39 H Creatinine 0.6 L Est GFR ( Amer) > 60 Est GFR (Non-Af Amer) > 60 POC Glucose (mg/dL) 147 H Random Glucose 177 H Calcium 9.3 Phosphorus 2.6 Magnesium 2.2 Total Bilirubin 0.6 AST 14 D ALT 29 Alkaline Phosphatase 62 Total Protein 5.4 L Albumin 2.2 L Globulin 3.2 Albumin/Globulin Ratio 0.7 L Vancomycin Trough 22.2 H Attending/Attestation - Attestation I have personally seen and examined this patient.: Yes I have fully participated in the care of the patient.: Yes I have reviewed all pertinent clinical information: Yes Notes (Text): 11/18/16 17:54 Patient seen and examined in the morning, doing well, wbc count continue to decrease, tolerated fio2 30% with good oxygenation, no fever. Decrease dose of vancomycin to 1 gram q12h. Sputum culture from last monday positive for mrsa. Bronchoscopy done again at bedside by me for clearing of secretions since x-ray shows whitening 2 ribs above form yesterday, only minimal secretions through ET tube, but thick. Lost of secretions suctioned form both lungs, white/green and very very thick, did not attempt extubation since she needs a lot of strength to cough them up and she does not have it, although getting better. Updated God daughter. <VickyshyanneJohndenice - Last Filed: 11/18/16 20:56> CCU Subjective - Physician Review Subjective (Free Text): 11/08/16 13:06 Pt seen in mild distress requiring intubation. Two large pieces of dried mucus were extracted from the patient's throat obstructing vocal cords. Patient intubated. TLC line was also placed to ensure better IV access. As there is no power of real estate associate attorney or legal guardian, an administrative consent was obtained for central line. An ROS could not be obtained at this time because patient is intubated and sedated. 11/09/16 13:15 Patient seen at beside intubated and sedated. GCS 8T (FiO2 60 PEEP 5 VT 500 RR 16). No acute events overnight per nursing. A fib is rate controlled. Patient is stable. New vent settings after rounds PRVC (FiO2 60, PEEP 5, RR 12 VT 500). ROS couldn't be obtained because patient is intubated and sedated. 11/10/16 16:50 Pt seen and examined in no acute distress. Patient spiked a fever during overnight shift which initially responded to Tylenol and later returned during the morning shift. Patient administered tylenol and cooling blankets. Patient underwent thoracentesis for pleural effusion. Tolerated procedure well. Patient is rate controlled. ROS couldn't be obtained because patient is intubated and sedated. 11/11/16 8:34 Pt seen and examined in no acute distress. Patient seen at beside intubated and sedated. (FiO2 50 PEEP 5 RR 14 VT 500). Patient is awake, but does not follow commands. Patient has low grade fever this morning (T max 100.2, T 99.0-100.2). A fib is rate controlled. Patient is stable. ROS couldn't be obtained because patient was intubated and sedated at the time of evaluation 11/14/16 15:35 Patient seen at bedside in no acute distress. Patient intubated with vent settings of FiO2 50%, RR 14, PEEP 5, TV 500% and is saturating well at 100%. GCS 10T (E4 VT M6). Patient's last dose of propofol was given 11/12. Patient opens eyes spontaneously and moves extremities on her own. CPAP trial was done after morning rounds. Patient was tachycardic prior to morning rounds, but is currently rate controlled. Patient is stable. Patient spiked a fever overnight and is currently having a low grade fever (T max 101.1, T current 99.3). ROS could not be obtained because patient is intubated at time of evaluation. Over the weekend, NGT removed and replaced with OGT with Afrin spray in nose bilaterally. Right sided nasal packing inserted where NGT had been. 11/15/16 15:39 Patient seen at bedside in no acute distress. Patient intubated with vent settings of FiO2 50%, RR 14, PEEP 5, TV 500% and is saturating well at 100%. GCS 10T (E4 VT M6). Patient's last dose of propofol was given 11/12. Patient opens eyes spontaneously and moves extremities on her own. Patient is stable but still lethargic. Patient spiked a fever overnight and has normal temperature now (T max 101, T current 98.4). ROS could not be obtained because patient is intubated and lethargic at time of evaluation. 11/16/16 13:09 Patient seen at bedside in no acute distress. Patient intubated with vent settings of FiO2 50%, RR 14, PEEP 5, TV 500% and is saturating well at 100%. Patient is stable but still lethargic. Patient spiked a fever overnight and has normal temperature now (T max 101.4, T current 101.3). ROS could not be obtained because patient is intubated at time of evaluation. 11/18/16 20:33 Pt seen and examined in no acute distress. Patient intubated but tolerating CPAP trial. Patient opens eyes spontaneously and moves extremities on her own. Patient is stable but moderately lethargic. Patient afebrile overnight. ROS could not be obtained because patient is intubated at time of evaluation. CCU Objective - Vital Signs / Intake & Output Intake and Output (Last 8hrs): Intake & Output 11/18/16 11/18/16 11/18/16 06:59 14:59 22:59 Intake Total 1881.2 469.2 Output Total 345 235 Balance 1536.2 234.2 Weight 238 lb 1.588 oz Intake: Intake, IV Amount 801.2 19.2 Right Distal Port 750 Right Medial Port 51.2 19.2 Internal Jugular Oral 680 Tube Feeding 400 250 Other 200 Output: Urine 345 235 Urethral ([place]) 345 235 Other: # Bowel Movements 0 - Physical Exam Head: Positive for: Atraumatic, Normocephalic Pupils: Positive for: PERRL. Negative for: Sluggish, Non-Reactive Extroacular Muscles: Positive for: EOMI. Negative for: Gaze Palsy Conjunctiva: Positive for: Normal. Negative for: Injected, Icteric Mouth: Positive for: Moist Mucous Membranes Nose (Internal): Positive for: Other (packing in place) Neck: Positive for: Normal Range of Motion, Trachea Midline. Negative for: Meningeal Signs, MIDLINE TENDERNESS, Paraspinal Tenderness, JVD, Lymphadenopathy , Bruit, Other Respiratory/Chest: Positive for: Wheezes, Decreased Breath Sounds, Other ( intubated). Negative for: Rales Cardiovascular: Positive for: Irregular Rhythm, Peripheal Pulses Present, Tachycardic. Negative for: Murmurs, Normal S1, S2 Abdomen: Negative for: Tenderness, Distention Upper Extremity: Positive for: Normal Inspection Lower Extremity: Positive for: Edema Neurological: Negative for: Speech Normal Psychiatric: Negative for: Alert, Oriented x 3 - Medications Active Medications: Active Medications Generic Name Dose Route Start Last Admin Trade Name Freq PRN Reason Stop Dose Admin Acetaminophen 650 mg 11/14/16 20:10 11/16/16 08:59 Tylenol 650mg/20.3ml Solution Ud GT 650 mg Q6 PRN Administration Fever >100.4 F Amiodarone HCl 200 mg 11/15/16 18:00 11/18/16 09:53 Cordarone PO 200 mg Q8H CRISTOBAL Administration Diltiazem HCl 60 mg 11/15/16 12:00 11/18/16 12:34 Cardizem PO 60 mg Q6 C[place]STOBAL Administration Enoxaparin Sodium 110 mg 11/15/16 22:00 11/18/16 09:50 Lovenox SC 110 mg Q12 CRISTOBAL Administration Propofol 100 mls @ 3.493 mls/hr 11/08/16 08:29 11/18/16 06:15 Diprivan IV 6.986 mls/hr .Q24H PRN Administration TITRATE PER MD ORDER Protocol 5 MCG/KG/MIN Imipenem/Cilastatin Sodium 1, 250 mls @ 250 mls/hr 11/15/16 13:00 11/18/16 12: 34 000 mg/ Sodium Chloride IVPB 250 mls/hr Q8H CRISTOBAL Administration Vancomycin/Sodium Chloride 200 mls @ 166.6 mls/hr 11/19/16 10:00 Vancocin IVPB Q12H [facility] Insulin Glargine 22 unit 11/17/16 20:17 11/18/16 07:53 Lantus SC 22 u 0800,2000 [facility] Administration Insulin Human Regular 0 unit 11/17/16 08:38 11/18/16 12:28 Novolin R SC Not Given Q6 [facility] Protocol Methimazole 10 mg 11/18/16 10:00 11/18/16 15:10 Tapazole PO 10 mg TID CRISTOBAL Administration Methylprednisolone 10 mg 11/17/16 10:00 11/18/16 09:51 Solu-Medrol IVP 10 mg DAILY C[place]STOBAL Administration Metoprolol Succinate 12.5 mg 11/16/16 10:30 11/18/16 09:50 Toprol Xl PO 12.5 mg DAILY CRISTOBAL Administration Nystatin 0 ea 11/04/16 18:00 11/18/16 15:01 Mycostatin Cream TOP 1 applic TID CRISTOBAL Administration Pantoprazole Sodium 40 mg 11/04/16 16:45 11/18/16 09:50 Protonix Inj IVP 40 mg DAILY CRISTOBAL Administration Vitamin A 1 ea 11/09/16 18:00 11/18/16 09:53 Vitamin A & D Oint Ud Foilpak TOP 1 ea BID CRISTOBAL Administration - Patient Studies Lab Studies: Microbiology Studies 11/15/16 12:15 Blood Culture - Preliminary Blood-Thru Central Line NO GROWTH AFTER 3 DAYS 11/15/16 12:45 Blood Culture - Preliminary Blood-Thru Central Line NO GROWTH AFTER 3 DAYS 11/15/16 14:16 Bronchial Culture - Final Bronchial Washings Methicillin Resistant S Aureus Lab Studies 11/18/16 11/18/16 11/18/16 Range/Units 14:22 11:19 06:18 WBC 7.2 (4.8-10.8) K/uL RBC 3.39 L (3.80-5.20) Mil/uL Hgb 9.7 L (11.0-16.0) g/dL Hct 31.3 L (34.0-47.0) % MCV 92.3 D (81.0-99.0) fL MCH 28.7 (27.0-31.0) pg MCHC 31.1 L (33.0-37.0) g/dL RDW 14.8 H (11.5-14.5) % Plt Count 164 (130-400) K/uL MPV 10.3 (7.2-11.7) fL Neut % (Auto) 76.4 H (50.0-75.0) % Lymph % (Auto) 13.1 L (20.0-40.0) % [place] % (Auto) 8.3 (0.0-10.0) % Eos % (Auto) 1.7 (0.0-4.0) % Baso % (Auto) 0.5 (0.0-2.0) % Neut # 5.5 (1.8-7.0) K/uL Lymph # 0.9 L (1.0-4.3) K/uL [place] # 0.6 (0.0-0.8) K/uL Eos # 0.1 (0.0-0.7) K/uL Baso # 0.0 (0.0-0.2) K/uL Puncture Site pCO2 (35-45) mm/Hg pO2 (80-100) mm/Hg HCO3 (21-28) mmol/L ABG pH (7.35-7.45) ABG Total CO2 (22-28) mmol/L ABG O2 Saturation (95-98) % ABG Base Excess (-2.0-3.0) mmol/L ABG Hemoglobin (11.7-17.4) g/dL ABG Carboxyhemoglobin (0.5-1.5) % POC ABG HHb (Measured) (0.0-5.0) % ABG Methemoglobin (0.0-3.0) % Chaz Test A-a O2 Difference mm/Hg Respiratory Index Hgb O2 Saturation (95.0-98.0) % Mechanical Rate FiO2 % Tidal Volume PEEP Sodium 150 H (132-148) mmol/L Potassium 3.6 (3.6-5.2) mmol/L Chloride 115 H (98-107) mmol/L Carbon Dioxide 28 (22-30) mmol/L Anion Gap 11 (10-20) BUN 39 H (7-17) mg/dL Creatinine 0.6 L (0.7-1.2) MG/DL Est GFR ( Amer) > 60 Est GFR (Non-Af Amer) > 60 POC Glucose (mg/dL) 147 H (65-110) mg/dL Random Glucose 177 H (65-105) mg/dL Calcium 9.3 (8.6-10.4) mg/dl Phosphorus 2.6 (2.5-4.5) mg/dL Magnesium 2.2 (1.6-2.3) mg/dL Total Bilirubin 0.6 (0.2-1.3) mg/dL AST 14 D (14-36) U/L ALT 29 (9-52) U/L Alkaline Phosphatase 62 (38-126) U/L Total Protein 5.4 L (6.3-8.3) g/dL Albumin 2.2 L (3.5-5.0) g/dL Globulin 3.2 (2.2-3.9) gm/dL Albumin/Globulin Ratio 0.7 L (1.0-2.1) Vancomycin Trough 22.2 H (5.0-10.0) ug/mL 11/18/16 11/18/16 11/18/16 Range/Units 05:20 05:04 00:17 WBC (4.8-10.8) K/uL RBC (3.80-5.20) Mil/uL Hgb (11.0-16.0) g/dL Hct (34.0-47.0) % MCV (81.0-99.0) fL MCH (27.0-31.0) pg MCHC (33.0-37.0) g/dL RDW (11.5-14.5) % Plt Count (130-400) K/uL MPV (7.2-11.7) fL Neut % (Auto) (50.0-75.0) % Lymph % (Auto) (20.0-40.0) % [place] % (Auto) (0.0-10.0) % Eos % (Auto) (0.0-4.0) % Baso % (Auto) (0.0-2.0) % Neut # (1.8-7.0) K/uL Lymph # (1.0-4.3) K/uL [place] # (0.0-0.8) K/uL Eos # (0.0-0.7) K/uL Baso # (0.0-0.2) K/uL Puncture Site Rr pCO2 44 (35-45) mm/Hg pO2 128 H (80-100) mm/Hg HCO3 26.7 (21-28) mmol/L ABG pH 7.40 (7.35-7.45) ABG Total CO2 28.7 H (22-28) mmol/L ABG O2 Saturation 99.7 H (95-98) % ABG Base Excess 2.2 (-2.0-3.0) mmol/L ABG Hemoglobin 9.9 L (11.7-17.4) g/dL ABG Carboxyhemoglobin 1.8 H (0.5-1.5) % POC ABG HHb (Measured) 0.3 (0.0-5.0) % ABG Methemoglobin 1.0 (0.0-3.0) % Chaz Test Pos A-a O2 Difference 102.0 mm/Hg Respiratory Index 0.8 Hgb O2 Saturation 96.9 (95.0-98.0) % Mechanical Rate 14 FiO2 40.0 % Tidal Volume 500 PEEP 5 Sodium (132-148) mmol/L Potassium (3.6-5.2) mmol/L Chloride (98-107) mmol/L Carbon Dioxide (22-30) mmol/L Anion Gap (10-20) BUN (7-17) mg/dL Creatinine (0.7-1.2) MG/DL Est GFR ( Amer) Est GFR (Non-Af Amer) POC Glucose (mg/dL) 211 H 249 H (65-110) mg/dL Random Glucose (65-105) mg/dL Calcium (8.6-10.4) mg/dl Phosphorus (2.5-4.5) mg/dL Magnesium (1.6-2.3) mg/dL Total Bilirubin (0.2-1.3) mg/dL AST (14-36) U/L ALT (9-52) U/L Alkaline Phosphatase (38-126) U/L Total Protein (6.3-8.3) g/dL Albumin (3.5-5.0) g/dL Globulin (2.2-3.9) gm/dL Albumin/Globulin Ratio (1.0-2.1) Vancomycin Trough (5.0-10.0) ug/mL 11/17/16 Range/Units 17:41 WBC (4.8-10.8) K/uL RBC (3.80-5.20) Mil/uL Hgb (11.0-16.0) g/dL Hct (34.0-47.0) % MCV (81.0-99.0) fL MCH (27.0-31.0) pg MCHC (33.0-37.0) g/dL RDW (11.5-14.5) % Plt Count (130-400) K/uL MPV (7.2-11.7) fL Neut % (Auto) (50.0-75.0) % Lymph % (Auto) (20.0-40.0) % [place] % (Auto) (0.0-10.0) % Eos % (Auto) (0.0-4.0) % Baso % (Auto) (0.0-2.0) % Neut # (1.8-7.0) K/uL Lymph # (1.0-4.3) K/uL [place] # (0.0-0.8) K/uL Eos # (0.0-0.7) K/uL Baso # (0.0-0.2) K/uL Puncture Site pCO2 (35-45) mm/Hg pO2 (80-100) mm/Hg HCO3 (21-28) mmol/L ABG pH (7.35-7.45) ABG Total CO2 (22-28) mmol/L ABG O2 Saturation (95-98) % ABG Base Excess (-2.0-3.0) mmol/L ABG Hemoglobin (11.7-17.4) g/dL ABG Carboxyhemoglobin (0.5-1.5) % POC ABG HHb (Measured) (0.0-5.0) % ABG Methemoglobin (0.0-3.0) % Chaz Test A-a O2 Difference mm/Hg Respiratory Index Hgb O2 Saturation (95.0-98.0) % Mechanical Rate FiO2 % Tidal Volume PEEP Sodium (132-148) mmol/L Potassium (3.6-5.2) mmol/L Chloride (98-107) mmol/L Carbon Dioxide (22-30) mmol/L Anion Gap (10-20) BUN (7-17) mg/dL Creatinine (0.7-1.2) MG/DL Est GFR ( Amer) Est GFR (Non-Af Amer) POC Glucose (mg/dL) 246 H (65-110) mg/dL Random Glucose (65-105) mg/dL Calcium (8.6-10.4) mg/dl Phosphorus (2.5-4.5) mg/dL Magnesium (1.6-2.3) mg/dL Total Bilirubin (0.2-1.3) mg/dL AST (14-36) U/L ALT (9-52) U/L Alkaline Phosphatase (38-126) U/L Total Protein (6.3-8.3) g/dL Albumin (3.5-5.0) g/dL Globulin (2.2-3.9) gm/dL Albumin/Globulin Ratio (1.0-2.1) Vancomycin Trough (5.0-10.0) ug/mL Laboratory Results - last 24 hr 11/17/16 11/18/16 11/18/16 17:41 00:17 05:04 WBC RBC Hgb Hct MCV MCH MCHC RDW Plt Count MPV Neut % (Auto) Lymph % (Auto) [place] % (Auto) Eos % (Auto) Baso % (Auto) Neut # Lymph # [place] # Eos # Baso # Puncture Site pCO2 pO2 HCO3 ABG pH ABG Total CO2 ABG O2 Saturation ABG Base Excess ABG Hemoglobin ABG Carboxyhemoglobin POC ABG HHb (Measured) ABG Methemoglobin Chaz Test A-a O2 Difference Respiratory Index Hgb O2 Saturation Mechanical Rate FiO2 Tidal Volume PEEP Sodium Potassium Chloride Carbon Dioxide Anion Gap BUN Creatinine Est GFR ( Amer) Est GFR (Non-Af Amer) POC Glucose (mg/dL) 246 H 249 H 211 H Random Glucose Calcium Phosphorus Magnesium Total Bilirubin AST ALT Alkaline Phosphatase Total Protein Albumin Globulin Albumin/Globulin Ratio Vancomycin Trough 11/18/16 11/18/16 11/18/16 05:20 06:18 11:19 WBC 7.2 RBC 3.39 L Hgb 9.7 L Hct 31.3 L MCV 92.3 D MCH 28.7 MCHC 31.1 L RDW 14.8 H Plt Count 164 MPV 10.3 Neut % (Auto) 76.4 H Lymph % (Auto) 13.1 L [place] % (Auto) 8.3 Eos % (Auto) 1.7 Baso % (Auto) 0.5 Neut # 5.5 Lymph # 0.9 L [place] # 0.6 Eos # 0.1 Baso # 0.0 Puncture Site Rr pCO2 44 pO2 128 H HCO3 26.7 ABG pH 7.40 ABG Total CO2 28.7 H ABG O2 Saturation 99.7 H ABG Base Excess 2.2 ABG Hemoglobin 9.9 L ABG Carboxyhemoglobin 1.8 H POC ABG HHb (Measured) 0.3 ABG Methemoglobin 1.0 Chaz Test Pos A-a O2 Difference 102.0 Respiratory Index 0.8 Hgb O2 Saturation 96.9 Mechanical Rate 14 FiO2 40.0 Tidal Volume 500 PEEP 5 Sodium 150 H Potassium 3.6 Chloride 115 H Carbon Dioxide 28 Anion Gap 11 BUN 39 H Creatinine 0.6 L Est GFR ( Amer) > 60 Est GFR (Non-Af Amer) > 60 POC Glucose (mg/dL) 147 H Random Glucose 177 H Calcium 9.3 Phosphorus 2.6 Magnesium 2.2 Total Bilirubin 0.6 AST 14 D ALT 29 Alkaline Phosphatase 62 Total Protein 5.4 L Albumin 2.2 L Globulin 3.2 Albumin/Globulin Ratio 0.7 L Vancomycin Trough 11/18/16 14:22 WBC RBC Hgb Hct MCV MCH MCHC RDW Plt Count MPV Neut % (Auto) Lymph % (Auto) [place] % (Auto) Eos % (Auto) Baso % (Auto) Neut # Lymph # [place] # Eos # Baso # Puncture Site pCO2 pO2 HCO3 ABG pH ABG Total CO2 ABG O2 Saturation ABG Base Excess ABG Hemoglobin ABG Carboxyhemoglobin POC ABG HHb (Measured) ABG Methemoglobin Chaz Test A-a O2 Difference Respiratory Index Hgb O2 Saturation Mechanical Rate FiO2 Tidal Volume PEEP Sodium Potassium Chloride Carbon Dioxide Anion Gap BUN Creatinine Est GFR ( Amer) Est GFR (Non-Af Amer) POC Glucose (mg/dL) Random Glucose Calcium Phosphorus Magnesium Total Bilirubin AST ALT Alkaline Phosphatase Total Protein Albumin Globulin Albumin/Globulin Ratio Vancomycin Trough 22.2 H Fingerstick Blood Sugar Results: 211 Review of Systems - Review of Systems Systems not reviewed;Unavailable: Intubated Review of Systems: see subjective Assessment/Plan - Assessment and Plan (Free Text) Assessment: 61 F with history of hyperthyroidism, admitted to ED for hyperglycemia, altered mental status, and a-fib. Patient was admitted to ICU for treatment of DKA and patient continues to be monitored in the ICU. Patient's ventilatory status improved tolerating CPAP trial. Patient is s/p therapeutic bronchoscopy 11/15, , 11/18 Plan: Neuro: Neurochecks Q4 GCS 10T (E4 VT M6) Sedation: Propofol 100 cc @ 3.493 cc/hr IV Q24H (5 mcg/kg/min) Cardiovascular: Imagin/26 CT soft tissue neck: no significant evidence of lymphadenopathy, moderately enlarged ET and NG tube. 11/13 CT Lower extremity: soft tissue swelling/stranding suggestive of cellulitis. no evidence of abscess. 11/13 CTA of chest/abdomen/pelvis: suspicious mass lesion at right kidney midpole 4.2 x 4.5. Moderate enlargement of bilateral adrenal gland with right > left. low attenuation nodules. increase in size of left pleural effusion since pervious study. complete collapse of left lower lobe. 2.8 cm low-attenuation lesion at anterior upper portion of spleen. foci of cortical irregularity and lucency in spine and right ribs. cardiomegaly 11/10 Duplex scan lower extremity artery: no evidence of deep or superficial vein thrombosis of Right and Left lower extremity. 11/09 Echocardiogram: LVEF 65%, elevated diastolic filling pressures. 11/04 EKG: atrial fibrillation with RVR, PVCs @ 153 bpm 11/17 CT Surgery consult - Dr. Scooter Avalos - no surgical intervention needed at time time Metoprolol 2.5 mg IVP Q6H [facility] Acetazolamide 500 mg IV Q8 [facility] Amiodarone HCl 200 mg PO TID Diltiazem 60 mg PO Q6 [facility] Pulmonary Vent settings: 11/18 CPAP FiO2 30%, PS 12, PEEP5 11/18 05:20 FiO2 40%, RR 14, PEEP 5, TV 500 11/17 FiO2 50%, RR 14, PEEP 5, TV 500 11/16 FiO2 40%, RR 14, PEEP 5, TV 500 11/15 FiO2 50%, RR 14, PEEP 5, TV 500 11/14 FiO2 50%, RR 14, PEEP 5, TV 500 and is saturating well at 100%. AB/31 05:20 pH 7.40, CO2 44, O2 127, HCO3 26.7 11/17 pH 7.36, CO2 51, O2 116, HCO3 27 11/16 pH 7.43, CO2 48, O2 129, HCO3 30.2 11/15 pH 7.38, CO2 61, O2 76, HCO3 31.6 11/14 pH 7.51, CO2 43, O2 198, HCO3 32.9 Imagin/31 CXR: moderate to severe venous congestion with prominent bibasilar airspace opacities. moderate left and small right pleural effusion. biapical pleural thickening with upper lobe granulomatous changes. 11/17 CXR: No significant interval change 11/16 CXR: Moderate to severe venous congestion with bibasilar airspace opacities and bilateral pleural effusions 11/15 CXR: no significant interval change 11/14 CXR: biapical thickening with upper lobe granulomatous changes. moderate venous congestion. prominent bibasilar airspace opacities with moderate left and small right pleural effusion 11/13 CXR: small left pleural effusion. congestive change. no infiltrates Solumedrol 10 mg IVP daily s/p therapeutic bronch 11/15, 11/16, 11/18 - improve secretions. Endo: HHS Diabetes - uncontrolled History of Hyperthyroidism T4 2.59 TSH <0.02 Methimazole 10 mg PO BID [facility] Novolin R 0 unit SC Q6H [facility] Lantus 22 units 0600 and 2000 [facility] Accucheck Q6 ACHS GI Fluid differential Pathologist review - few sheets of reactive mesothelial cells. scattered lymphocytes, macrophages, and RBCs negative for malignant cells. mildly inflamed pleural fluid negative for malignant cells. Daily CMP Albumin 2.2 Senna/Docusate 50 mg - 8.6 mg 1 tab PO BID Vitamin A & D oint UD foilpak 1 ea TOP BID [facility] : 4859.04/1210 = 3649.9 cc Monitor I/Os Hemphill Inserted Maintain Hemphill care Nephro: BUN/Cr: 39/0.6 (41/0.9 > 39/0.7 > 35/0.7 > 39/0.6) Hypernatremia Hypokalemia - repleted Monitor I/Os Daily CMP Heme: H&H 9.7/31.3 (11.4/36.5 > 9.3/30.2 > 9.5/30.6 > 9.7/31.3) Daily CBC ID: WBC 7.2 (11.1>17.2>11.6>9.0>7.2) MRSA bronchial culture Daily CBC Nystatin TOP TID [facility] Acetaminophen 650 mg ID Q6 PRN temperature >101 F Vancomycin 1500 mg, 500 cc @ 250 cc/hr IVPB Q12H Imipenem/Cilastatin 1 Gm 250 cc @ 250 cc/hr IVPB Q8H [facility] Vanco trough 11/16 16.1 Prophylaxis DVT: SCDs, Lovenox 110 mg SC Q12 [facility] GI: Protonix 40 mg IVP daily [facility]
--- NOTE | 2016-11-18 23:43 | CP.PCM.PN ---
Subjective - Date & Time of Evaluation Date of Evaluation: 11/17/16 Time of Evaluation: 13:44 - Subjective Subjective: patient seen and examined in the intensive care unit. Much more awake On ventilatory support Status post bronchoscopy yesterday with copious amount of secretions Afebrile Tolerating feeding Seen by CT surgery Objective - Vital Signs/Intake and Output Vital Signs (last 24 hours): Temp Pulse Resp BP Pulse Ox 99.9 F H 106 H 14 146/58 L 100 11/18/16 16:00 11/18/16 23:02 11/18/16 23:02 11/18/16 23:02 11/18/16 23:02 Intake and Output: 11/18/16 11/19/16 18:59 06:59 Intake Total 1569.2 300 Output Total 730 100 Balance 839.2 200 - Medications Medications: Current Medications Acetaminophen (Tylenol 650mg/20.3ml Solution Ud) 650 mg GT Q6 PRN PRN Reason: Fever >100.4 F Last Admin: 11/16/16 08:59 Dose: 650 mg Amiodarone HCl (Cordarone) 200 mg PO Q8H [facility] Last Admin: 11/18/16 18:39 Dose: 200 mg Diltiazem HCl (Cardizem) 60 mg PO Q6 [facility] Last Admin: 11/18/16 23:16 Dose: 60 mg Propofol (Diprivan) 100 mls @ 3.493 mls/hr IV .Q24H PRN; Protocol; 5 MCG/KG/MIN PRN Reason: TITRATE PER MD ORDER Last Admin: 11/18/16 06:15 Dose: 6.986 mls/hr Imipenem/Cilastatin Sodium 1, (000 mg/ Sodium Chloride) 250 mls @ 250 mls/hr IVPB Q8H [facility] Last Admin: 11/18/16 21:39 Dose: 250 mls/hr Vancomycin/Sodium Chloride (Vancocin) 200 mls @ 166.6 mls/hr IVPB Q12H [facility] Insulin Glargine (Lantus) 22 unit SC 0800,1999 [facility] Last Admin: 11/18/16 21:39 Dose: 22 u Insulin Human Regular (Novolin R) 0 unit SC Q6 [facility] PRN Reason: Protocol Last Admin: 11/18/16 18:36 Dose: Not Given Methimazole (Tapazole) 10 mg PO TID [facility] Last Admin: 11/18/16 18:39 Dose: 10 mg Methylprednisolone (Solu-Medrol) 10 mg IVP DAILY [facility] Last Admin: 11/18/16 09:51 Dose: 10 mg Metoprolol Succinate (Toprol Xl) 12.5 mg PO DAILY [facility] Last Admin: 11/18/16 09:50 Dose: 12.5 mg Nystatin (Mycostatin Cream) 0 ea TOP TID [facility] Last Admin: 11/18/16 18:40 Dose: 1 applic Pantoprazole Sodium (Protonix Inj) 40 mg IVP DAILY [facility] Last Admin: 11/18/16 09:50 Dose: 40 mg Vitamin A (Vitamin A & D Oint Ud Foilpak) 1 ea TOP BID [facility] Last Admin: 11/18/16 18:40 Dose: 1 ea - Labs Labs: 11/18/16 06:18 11/18/16 06:18 PT 12.0 SECONDS (9.7-12.2) 11/13/16 04:57 INR 1.1 11/13/16 04:57 APTT 38 SECONDS (21-34) H D 11/13/16 04:57 - Constitutional Appears: No Acute Distress, Chronically Ill - Head Exam Head Exam: ATRAUMATIC, NORMAL INSPECTION, NORMOCEPHALIC - Eye Exam Eye Exam: EOMI, Normal appearance, PERRL Pupil Exam: NORMAL ACCOMODATION, PERRL - Respiratory Exam Respiratory Exam: Decreased Breath Sounds, Wheezes - Cardiovascular Exam Cardiovascular Exam: REGULAR RHYTHM, +S1, +S2. absent: Murmur - GI/Abdominal Exam GI & Abdominal Exam: Soft, Normal Bowel Sounds. absent: Tenderness - Neurological Exam Neurological Exam: Alert, Awake, CN II-XII Intact, Normal Gait, Oriented x3 Assessment and Plan (1) Atrial fibrillation with rapid ventricular response Status: Acute (2) Bilateral lower leg cellulitis Status: Acute (3) CHF (congestive heart failure) Status: Acute (4) DKA (diabetic ketoacidoses) Status: Resolved (5) Diabetes Status: Chronic (6) HTN (hypertension) Status: Chronic
[2016-11-19] MEDS: (Novolin R) Insulin Human Regular 100 units/ml vial SC SCH ×5 (00:40→23:35)
[2016-11-19 05:39] LABS: ABG ALLEN TEST POS; ABG MECHANICAL RATE 14; ARTERIAL BLOOD HGB O2 SAT 93.5 % (95.0-98.0); ATERIAL BLOOD GAS PEEP 5; CARBOXYHEMOGLOBIN 2.1 % (0.5-1.5); DRAW SITE RRAD; HHB 3.3 % (0.0-5.0); METHEMOGLOBIN 1.1 % (0.0-3.0)
[2016-11-19 06:02] LABS: BASO % 0.2 % (0.0-2.0); EOS # 0.1 K/uL (0.0-0.7); EOS % 0.8 % (0.0-4.0); HEMATOCRIT 30.5 % (34.0-47.0); LYMPH # 1.2 K/uL (1.0-4.3); LYMPH % 15.4 % (20.0-40.0); MEAN CELL VOLUME 90.9 fL (81.0-99.0); MEAN CORPUSCULAR HEMOGLOBIN 28.5 pg (27.0-31.0); MEAN CORPUSCULAR HGB CONC 31.3 g/dL (33.0-37.0); MEAN PLATELET VOLUME 9.8 fL (7.2-11.7); MONO # 0.6 K/uL (0.0-0.8); MONO % 8.3 % (0.0-10.0); RED CELL DISTRIBUTION WIDTH 14.6 % (11.5-14.5); WHITE BLOOD COUNT 7.7 K/uL (4.8-10.8)
[2016-11-19 06:08] LABS: CHLORIDE 112 mmol/L (98-107); POTASSIUM 3.3 mmol/L (3.6-5.2); SODIUM 147 mmol/L (132-148)
[2016-11-19 06:10] LABS: ALB/GLOB RATIO 0.7 (1.0-2.1); ALKALINE PHOSPHATASE 64 U/L (38-126); AST/SGOT 14 U/L (14-36); BILIRUBIN,TOTAL 0.5 mg/dL (0.2-1.3); CARBON DIOXIDE 30 mmol/L (22-30); GFR AFRICAN-AMERICAN > 60; TOTAL PROTEIN 5.1 g/dL (6.3-8.3)
[2016-11-19 06:11] LABS: ALT/SGPT 31 U/L (9-52); BLOOD UREA NITROGEN 28 mg/dL (7-17); CALCIUM 8.6 mg/dl (8.6-10.4); GLUCOSE,RANDOM 74 mg/dL (65-105); MAGNESIUM 2.1 mg/dL (1.6-2.3); PHOSPHOROUS 2.5 mg/dL (2.5-4.5)
--- NOTE | 2016-11-19 08:14 | RAD ---
HISTORY: intubated COMPARISON: Comparison is made to the previous study 11/18/2016 FINDINGS: LUNGS: Worsening pulmonary vascular congestion since the previous exam. The ET tube is seen at appropriate position. PLEURA: Possible left pleural effusion and small right pleural effusion. CARDIOVASCULAR: Normal. OSSEOUS STRUCTURES: No significant abnormalities. VISUALIZED UPPER ABDOMEN: NG tube seen extending to the abdomen. OTHER FINDINGS: Right jugular central line seen in place. IMPRESSION: Worsening pulmonary vascular congestion since the previous exam. Bilateral pleural effusions. Appropriate position of the support devices.
[2016-11-19] MEDS: MethylPREDNISolone 40 mg Vial IVP SCH (09:24)
[2016-11-19] MEDS: Vancomycin 1 gm/NS 200 ml 200 ML IVPB SCH ×2 (09:24→21:10)
[2016-11-19] MEDS: Metoprolol Succinate 12.5 mg XL PO SCH (09:25)
[2016-11-19] MEDS: Nystatin 100,000 Units/gm Cream(15 gm) TOP SCH ×3 (09:27→17:10)
[2016-11-19] MEDS: Vitamins A & D Oint UD Foilpak TOP SCH ×2 (10:22→17:10)
--- NOTE | 2016-11-19 13:00 | CP.CCUPN ---
CCU Subjective - Physician Review Events Since Last Encounter (Free Text): 11/19/16 12:57 Patient seen and examined in the intensive care unit. Case discussed with house staff the morning rounds. Remains intubated on ventilatory support and tolerated CPAP for many hours yesterday status post bronchoscopy with copious amount of thick secretions aspirated from the left lower lobe Afebrile Tolerating feedings and no diarrhea Awake but does not follow commands Subjective (Free Text): 11/07/16 15:16 Patient continues to demonstrate pitting edema in all extremities. Patient is arousable when questions are directed to her, however cannot respond with words, and furthermore appears confused. CCU Objective - Vital Signs / Intake & Output Vital Signs (Last 4 hours): Vital Signs Temp Pulse Resp BP Pulse Ox 11/19/16 12:01 105 H 13 104/81 95 11/19/16 12:00 98.6 F 11/19/16 11:11 104 H 15 96 11/19/16 11:01 107 H 15 132/66 94 L 11/19/16 10:02 95 H 13 115/64 94 L 11/19/16 09:18 84 14 97 11/19/16 09:02 92 H 14 122/54 L 97 Intake and Output (Last 8hrs): Intake & Output 11/18/16 11/19/16 11/19/16 22:59 06:59 14:59 Intake Total 1275 1150 1210 Output Total 635 500 280 Balance 640 650 930 Weight 251 lb 1.704 oz Intake: Intake, IV Amount 375 250 210 Right Medial Port 375 250 210 Internal Jugular Oral 500 250 Tube Feeding 400 400 250 Other 500 500 Output: Urine 635 500 280 Urethral (Hemphill) 635 500 280 Other: # Bowel Movements 1 0 0 - Physical Exam Head: Positive for: Atraumatic, Normocephalic Pupils: Positive for: PERRL. Negative for: Sluggish, Non-Reactive Extroacular Muscles: Positive for: EOMI. Negative for: Gaze Palsy Conjunctiva: Positive for: Normal. Negative for: Injected, Icteric Mouth: Positive for: Moist Mucous Membranes Nose (Internal): Positive for: Other (packing in place) Neck: Positive for: Normal Range of Motion, Trachea Midline. Negative for: Meningeal Signs, MIDLINE TENDERNESS, Paraspinal Tenderness, JVD, Lymphadenopathy , Bruit, Other Respiratory/Chest: Positive for: Wheezes, Decreased Breath Sounds, Other ( intubated). Negative for: Rales Cardiovascular: Positive for: Irregular Rhythm, Peripheal Pulses Present, Tachycardic. Negative for: Murmurs, Normal S1, S2 Abdomen: Negative for: Tenderness, Distention Upper Extremity: Positive for: Normal Inspection Lower Extremity: Positive for: Edema Neurological: Negative for: Speech Normal Psychiatric: Negative for: Alert, Oriented x 3 - Medications Active Medications: Active Medications Generic Name Dose Route Start Last Admin Trade Name Freq PRN Reason Stop Dose Admin Acetaminophen 650 mg 11/14/16 20:10 11/16/16 08:59 Tylenol 650mg/20.3ml Solution Ud GT 650 mg Q6 PRN Administration Fever >100.4 F Amiodarone HCl 200 mg 11/15/16 18:00 11/19/16 09:26 Cordarone PO 200 mg Q8H [facility] Administration Diltiazem HCl 60 mg 11/15/16 12:00 11/19/16 05:08 Cardizem PO 60 mg Q6 [facility] Administration Propofol 100 mls @ 3.493 mls/hr 11/08/16 08:29 11/18/16 06:15 Diprivan IV 6.986 mls/hr .Q24H PRN Administration TITRATE PER MD ORDER Protocol 5 MCG/KG/MIN Imipenem/Cilastatin Sodium 1, 250 mls @ 250 mls/hr 11/15/16 13:00 11/19/16 05: 04 000 mg/ Sodium Chloride IVPB 250 mls/hr Q8H [facility] Administration Vancomycin/Sodium Chloride 200 mls @ 166.6 mls/hr 11/19/16 10:00 11/19/16 09:24 Vancocin IVPB 166.6 mls/hr Q12H [facility] Administration Insulin Glargine 22 unit 11/17/16 20:17 11/18/16 21:39 Lantus SC 22 u 0800,2000 [facility] Administration Insulin Human Regular 0 unit 11/17/16 08:38 11/19/16 11:57 Novolin R SC Not Given Q6 [facility] Protocol Methimazole 10 mg 11/18/16 10:00 11/19/16 09:25 Tapazole PO 10 mg TID [facility] Administration Methylprednisolone 10 mg 11/17/16 10:00 11/19/16 09:24 Solu-Medrol IVP 10 mg DAILY [facility] Administration Metoprolol Succinate 12.5 mg 11/16/16 10:30 11/19/16 09:25 Toprol Xl PO 12.5 mg DAILY [facility] Administration Nystatin 0 ea 11/04/16 18:00 11/19/16 09:27 Mycostatin Cream TOP 1 applic TID [facility] Administration Pantoprazole Sodium 40 mg 11/04/16 16:45 11/19/16 09:25 Protonix Inj IVP 40 mg DAILY [facility] Administration Vitamin A 1 ea 11/09/16 18:00 11/19/16 10:22 Vitamin A & D Oint Ud Foilpak TOP 1 ea BID [facility] Administration - Patient Studies Lab Studies: Microbiology Studies 11/15/16 12:15 Blood Culture - Preliminary Blood-Thru Central Line NO GROWTH AFTER 3 DAYS 11/15/16 12:45 Blood Culture - Preliminary Blood-Thru Central Line NO GROWTH AFTER 3 DAYS 11/15/16 14:16 Bronchial Culture - Final Bronchial Washings Methicillin Resistant S Aureus Lab Studies 11/19/16 11/19/16 11/19/16 Range/Units 11:57 05:58 05:54 WBC 7.7 (4.8-10.8) K/uL RBC 3.35 L (3.80-5.20) Mil/uL Hgb 9.5 L (11.0-16.0) g/dL Hct 30.5 L (34.0-47.0) % MCV 90.9 (81.0-99.0) fL MCH 28.5 (27.0-31.0) pg MCHC 31.3 L (33.0-37.0) g/dL RDW 14.6 H (11.5-14.5) % Plt Count 164 (130-400) K/uL MPV 9.8 (7.2-11.7) fL Neut % (Auto) 75.3 H (50.0-75.0) % Lymph % (Auto) 15.4 L (20.0-40.0) % [place] % (Auto) 8.3 (0.0-10.0) % Eos % (Auto) 0.8 (0.0-4.0) % Baso % (Auto) 0.2 (0.0-2.0) % Neut # 5.8 (1.8-7.0) K/uL Lymph # 1.2 (1.0-4.3) K/uL [place] # 0.6 (0.0-0.8) K/uL Eos # 0.1 (0.0-0.7) K/uL Baso # 0.0 (0.0-0.2) K/uL Puncture Site pCO2 (35-45) mm/Hg pO2 (80-100) mm/Hg HCO3 (21-28) mmol/L ABG pH (7.35-7.45) ABG Total CO2 (22-28) mmol/L ABG O2 Saturation (95-98) % ABG Base Excess (-2.0-3.0) mmol/L ABG Hemoglobin (11.7-17.4) g/dL ABG Carboxyhemoglobin (0.5-1.5) % POC ABG HHb (Measured) (0.0-5.0) % ABG Methemoglobin (0.0-3.0) % Chaz Test A-a O2 Difference mm/Hg Respiratory Index Hgb O2 Saturation (95.0-98.0) % Mechanical Rate FiO2 % Tidal Volume PEEP Sodium 147 (132-148) mmol/L Potassium 3.3 L (3.6-5.2) mmol/L Chloride 112 H (98-107) mmol/L Carbon Dioxide 30 (22-30) mmol/L Anion Gap 8 L (10-20) BUN 28 H (7-17) mg/dL Creatinine 0.7 (0.7-1.2) MG/DL Est GFR ( Amer) > 60 Est GFR (Non-Af Amer) > 60 POC Glucose (mg/dL) 115 H (65-110) mg/dL Random Glucose 74 (65-105) mg/dL Calcium 8.6 (8.6-10.4) mg/dl Phosphorus 2.5 (2.5-4.5) mg/dL Magnesium 2.1 (1.6-2.3) mg/dL Total Bilirubin 0.5 (0.2-1.3) mg/dL AST 14 (14-36) U/L ALT 31 (9-52) U/L Alkaline Phosphatase 64 (38-126) U/L Total Protein 5.1 L (6.3-8.3) g/dL Albumin 2.1 L (3.5-5.0) g/dL Globulin 3.0 (2.2-3.9) gm/dL Albumin/Globulin Ratio 0.7 L (1.0-2.1) Vancomycin Trough (5.0-10.0) ug/mL 11/19/16 11/19/16 11/18/16 Range/Units 05:15 00:34 18:03 WBC (4.8-10.8) K/uL RBC (3.80-5.20) Mil/uL Hgb (11.0-16.0) g/dL Hct (34.0-47.0) % MCV (81.0-99.0) fL MCH (27.0-31.0) pg MCHC (33.0-37.0) g/dL RDW (11.5-14.5) % Plt Count (130-400) K/uL MPV (7.2-11.7) fL Neut % (Auto) (50.0-75.0) % Lymph % (Auto) (20.0-40.0) % [place] % (Auto) (0.0-10.0) % Eos % (Auto) (0.0-4.0) % Baso % (Auto) (0.0-2.0) % Neut # (1.8-7.0) K/uL Lymph # (1.0-4.3) K/uL [place] # (0.0-0.8) K/uL Eos # (0.0-0.7) K/uL Baso # (0.0-0.2) K/uL Puncture Site Rrad pCO2 42 (35-45) mm/Hg pO2 61 L (80-100) mm/Hg HCO3 28.5 H (21-28) mmol/L ABG pH 7.45 (7.35-7.45) ABG Total CO2 30.5 H (22-28) mmol/L ABG O2 Saturation 96.6 (95-98) % ABG Base Excess 4.7 H (-2.0-3.0) mmol/L ABG Hemoglobin 9.3 L (11.7-17.4) g/dL ABG Carboxyhemoglobin 2.1 H (0.5-1.5) % POC ABG HHb (Measured) 3.3 (0.0-5.0) % ABG Methemoglobin 1.1 (0.0-3.0) % Chaz Test Pos A-a O2 Difference 100.0 mm/Hg Respiratory Index 1.6 Hgb O2 Saturation 93.5 L (95.0-98.0) % Mechanical Rate 14 FiO2 30.0 % Tidal Volume 500 PEEP 5 Sodium (132-148) mmol/L Potassium (3.6-5.2) mmol/L Chloride (98-107) mmol/L Carbon Dioxide (22-30) mmol/L Anion Gap (10-20) BUN (7-17) mg/dL Creatinine (0.7-1.2) MG/DL Est GFR ( Amer) Est GFR (Non-Af Amer) POC Glucose (mg/dL) 85 83 (65-110) mg/dL Random Glucose (65-105) mg/dL Calcium (8.6-10.4) mg/dl Phosphorus (2.5-4.5) mg/dL Magnesium (1.6-2.3) mg/dL Total Bilirubin (0.2-1.3) mg/dL AST (14-36) U/L ALT (9-52) U/L Alkaline Phosphatase (38-126) U/L Total Protein (6.3-8.3) g/dL Albumin (3.5-5.0) g/dL Globulin (2.2-3.9) gm/dL Albumin/Globulin Ratio (1.0-2.1) Vancomycin Trough (5.0-10.0) ug/mL 11/18/16 Range/Units 14:22 WBC (4.8-10.8) K/uL RBC (3.80-5.20) Mil/uL Hgb (11.0-16.0) g/dL Hct (34.0-47.0) % MCV (81.0-99.0) fL MCH (27.0-31.0) pg MCHC (33.0-37.0) g/dL RDW (11.5-14.5) % Plt Count (130-400) K/uL MPV (7.2-11.7) fL Neut % (Auto) (50.0-75.0) % Lymph % (Auto) (20.0-40.0) % [place] % (Auto) (0.0-10.0) % Eos % (Auto) (0.0-4.0) % Baso % (Auto) (0.0-2.0) % Neut # (1.8-7.0) K/uL Lymph # (1.0-4.3) K/uL [place] # (0.0-0.8) K/uL Eos # (0.0-0.7) K/uL Baso # (0.0-0.2) K/uL Puncture Site pCO2 (35-45) mm/Hg pO2 (80-100) mm/Hg HCO3 (21-28) mmol/L ABG pH (7.35-7.45) ABG Total CO2 (22-28) mmol/L ABG O2 Saturation (95-98) % ABG Base Excess (-2.0-3.0) mmol/L ABG Hemoglobin (11.7-17.4) g/dL ABG Carboxyhemoglobin (0.5-1.5) % POC ABG HHb (Measured) (0.0-5.0) % ABG Methemoglobin (0.0-3.0) % Chaz Test A-a O2 Difference mm/Hg Respiratory Index Hgb O2 Saturation (95.0-98.0) % Mechanical Rate FiO2 % Tidal Volume PEEP Sodium (132-148) mmol/L Potassium (3.6-5.2) mmol/L Chloride (98-107) mmol/L Carbon Dioxide (22-30) mmol/L Anion Gap (10-20) BUN (7-17) mg/dL Creatinine (0.7-1.2) MG/DL Est GFR ( Amer) Est GFR (Non-Af Amer) POC Glucose (mg/dL) (65-110) mg/dL Random Glucose (65-105) mg/dL Calcium (8.6-10.4) mg/dl Phosphorus (2.5-4.5) mg/dL Magnesium (1.6-2.3) mg/dL Total Bilirubin (0.2-1.3) mg/dL AST (14-36) U/L ALT (9-52) U/L Alkaline Phosphatase (38-126) U/L Total Protein (6.3-8.3) g/dL Albumin (3.5-5.0) g/dL Globulin (2.2-3.9) gm/dL Albumin/Globulin Ratio (1.0-2.1) Vancomycin Trough 22.2 H (5.0-10.0) ug/mL Laboratory Results - last 24 hr 11/18/16 11/18/16 11/19/16 14:22 18:03 00:34 WBC RBC Hgb Hct MCV MCH MCHC RDW Plt Count MPV Neut % (Auto) Lymph % (Auto) [place] % (Auto) Eos % (Auto) Baso % (Auto) Neut # Lymph # [place] # Eos # Baso # Puncture Site pCO2 pO2 HCO3 ABG pH ABG Total CO2 ABG O2 Saturation ABG Base Excess ABG Hemoglobin ABG Carboxyhemoglobin POC ABG HHb (Measured) ABG Methemoglobin Chaz Test A-a O2 Difference Respiratory Index Hgb O2 Saturation Mechanical Rate FiO2 Tidal Volume PEEP Sodium Potassium Chloride Carbon Dioxide Anion Gap BUN Creatinine Est GFR ( Amer) Est GFR (Non-Af Amer) POC Glucose (mg/dL) 83 85 Random Glucose Calcium Phosphorus Magnesium Total Bilirubin AST ALT Alkaline Phosphatase Total Protein Albumin Globulin Albumin/Globulin Ratio Vancomycin Trough 22.2 H 11/19/16 11/19/16 11/19/16 05:15 05:54 05:58 WBC 7.7 RBC 3.35 L Hgb 9.5 L Hct 30.5 L MCV 90.9 MCH 28.5 MCHC 31.3 L RDW 14.6 H Plt Count 164 MPV 9.8 Neut % (Auto) 75.3 H Lymph % (Auto) 15.4 L [place] % (Auto) 8.3 Eos % (Auto) 0.8 Baso % (Auto) 0.2 Neut # 5.8 Lymph # 1.2 [place] # 0.6 Eos # 0.1 Baso # 0.0 Puncture Site Rrad pCO2 42 pO2 61 L HCO3 28.5 H ABG pH 7.45 ABG Total CO2 30.5 H ABG O2 Saturation 96.6 ABG Base Excess 4.7 H ABG Hemoglobin 9.3 L ABG Carboxyhemoglobin 2.1 H POC ABG HHb (Measured) 3.3 ABG Methemoglobin 1.1 Chaz Test Pos A-a O2 Difference 100.0 Respiratory Index 1.6 Hgb O2 Saturation 93.5 L Mechanical Rate 14 FiO2 30.0 Tidal Volume 500 PEEP 5 Sodium 147 Potassium 3.3 L Chloride 112 H Carbon Dioxide 30 Anion Gap 8 L BUN 28 H Creatinine 0.7 Est GFR ( Amer) > 60 Est GFR (Non-Af Amer) > 60 POC Glucose (mg/dL) Random Glucose 74 Calcium 8.6 Phosphorus 2.5 Magnesium 2.1 Total Bilirubin 0.5 AST 14 ALT 31 Alkaline Phosphatase 64 Total Protein 5.1 L Albumin 2.1 L Globulin 3.0 Albumin/Globulin Ratio 0.7 L Vancomycin Trough 11/19/16 11:57 WBC RBC Hgb Hct MCV MCH MCHC RDW Plt Count MPV Neut % (Auto) Lymph % (Auto) [place] % (Auto) Eos % (Auto) Baso % (Auto) Neut # Lymph # [place] # Eos # Baso # Puncture Site pCO2 pO2 HCO3 ABG pH ABG Total CO2 ABG O2 Saturation ABG Base Excess ABG Hemoglobin ABG Carboxyhemoglobin POC ABG HHb (Measured) ABG Methemoglobin Chaz Test A-a O2 Difference Respiratory Index Hgb O2 Saturation Mechanical Rate FiO2 Tidal Volume PEEP Sodium Potassium Chloride Carbon Dioxide Anion Gap BUN Creatinine Est GFR ( Amer) Est GFR (Non-Af Amer) POC Glucose (mg/dL) 115 H Random Glucose Calcium Phosphorus Magnesium Total Bilirubin AST ALT Alkaline Phosphatase Total Protein Albumin Globulin Albumin/Globulin Ratio Vancomycin Trough Fingerstick Blood Sugar Results: 115 Review of Systems - Review of Systems Systems not reviewed;Unavailable: Intubated Critical Care Progress Note - Ventilator Checklist Head of Bed 30 Degrees: Yes Daily Sedation Vacation: Yes Daily Spontaneous Breathing Trial: Yes PUD Prophalyxis: Yes DVT Prophylaxis: Yes - Vent Settings MODE:: PRVC Assessment/Plan (1) Respiratory failure with hypoxia Assessment and plan: CPAP trial Still has copious secretions from the ET tube and not fully awake, hold off to extubation Continue feeding, IV antibiotics, nebulizer treatments and potassium supplement Current Visit: Yes Status: Acute (2) Atrial fibrillation with rapid ventricular response Current Visit: Yes Status: Acute (3) Bilateral lower leg cellulitis Current Visit: Yes Status: Acute Comment: Continue antibiotics and follow up culture and sensitivity
--- NOTE | 2016-11-19 21:26 | CP.PCM.PN ---
Subjective - Date & Time of Evaluation Date of Evaluation: 11/19/16 Time of Evaluation: 21:21 - Subjective Subjective: uncontrolled IDDM & hyperthyroidism Objective - Vital Signs/Intake and Output Vital Signs (last 24 hours): Temp Pulse Resp BP Pulse Ox 99.5 F 110 H 20 141/90 98 11/19/16 20:00 11/19/16 21:02 11/19/16 21:02 11/19/16 21:02 11/19/16 21:02 Intake and Output: 11/19/16 11/20/16 18:59 06:59 Intake Total 2009 850 Output Total 580 280 Balance 1430 570 - Medications Medications: Current Medications Acetaminophen (Tylenol 650mg/20.3ml Solution Ud) 650 mg GT Q6 PRN PRN Reason: Fever >100.4 F Last Admin: 11/16/16 08:59 Dose: 650 mg Amiodarone HCl (Cordarone) 200 mg PO Q8H [facility] Last Admin: 11/19/16 17:09 Dose: 200 mg Diltiazem HCl (Cardizem) 60 mg PO Q6 [facility] Last Admin: 11/19/16 17:09 Dose: 60 mg Propofol (Diprivan) 100 mls @ 3.493 mls/hr IV .Q24H PRN; Protocol; 5 MCG/KG/MIN PRN Reason: TITRATE PER MD ORDER Last Admin: 11/18/16 06:15 Dose: 6.986 mls/hr Imipenem/Cilastatin Sodium 1, (000 mg/ Sodium Chloride) 250 mls @ 250 mls/hr IVPB Q8H [facility] Last Admin: 11/19/16 20:23 Dose: 250 mls/hr Vancomycin/Sodium Chloride (Vancocin) 200 mls @ 166.6 mls/hr IVPB Q12H [facility] Last Admin: 11/19/16 21:10 Dose: 166.6 mls/hr Insulin Glargine (Lantus) 22 unit SC 0800,1999 [facility] Last Admin: 11/18/16 21:39 Dose: 22 u Insulin Human Regular (Novolin R) 0 unit SC Q6 [facility] PRN Reason: Protocol Last Admin: 11/19/16 17:35 Dose: 2 unit Methimazole (Tapazole) 10 mg PO TID [facility] Last Admin: 11/19/16 17:10 Dose: 10 mg Methylprednisolone (Solu-Medrol) 10 mg IVP DAILY [facility] Last Admin: 11/19/16 09:24 Dose: 10 mg Metoprolol Succinate (Toprol Xl) 12.5 mg PO DAILY [facility] Last Admin: 11/19/16 09:25 Dose: 12.5 mg Nystatin (Mycostatin Cream) 0 ea TOP TID [facility] Last Admin: 11/19/16 17:10 Dose: 1 applic Pantoprazole Sodium (Protonix Inj) 40 mg IVP DAILY [facility] Last Admin: 11/19/16 09:25 Dose: 40 mg Vitamin A (Vitamin A & D Oint Ud Foilpak) 1 ea TOP BID [facility] Last Admin: 11/19/16 17:10 Dose: 1 ea - Labs Labs: 11/19/16 05:58 11/19/16 05:54 PT 12.0 SECONDS (9.7-12.2) 11/13/16 04:57 INR 1.1 11/13/16 04:57 APTT 38 SECONDS (21-34) H D 11/13/16 04:57 Assessment and Plan (1) Diabetes mellitus, insulin dependent (IDDM), uncontrolled Assessment & Plan: Assessment & Plan: Endocrine consult f/u reason for consult: uncontrolled diabetes source : chrart review , pt awake , alert with OGT tube for bleeding unable to give history & as per chart review poor historian is 61 y/o admitted for a fib with rapid venttirucular resonse & DKA / bilateral lower extremities cellulites ,pt was intubated & also started on insulin drip glucose on admission 1023 . also was started on steroid 40 mg po bid , endocrine was contacted yesterday 11/12 for uncontrolled IDDM glucose in 300- 400 & also pt with hyperthyroidism on tapazole , blood glucose log :80-115 , last 159 , still on steroid 10 mg qd & continuos feeding , same rate NO hypoglycemia Allergy NKDA Past medical history : HTN , pedal edema Past surgical history : not documented Psychiatry history : (+) psychiatry disorder Social history : (+)smoking , ETOH use , illicit drug use Family history : unknown ROS: Constitutional: no fever ,tiredness/weakness .HEENT: no earache, change in voice .Respiratory: no cough, sob . CVS :no chest pain, no palpitations . Abdomen : no abdominal pain, no nausea /vomiting , no change bowel movement . 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 Extremities : (+) edema , no tremors . Skin: no itching, no rash Physical exam Well developed on C-pap , on continuos feeding VSS HEENT: norm cephalic, atraumatic , no lid lag , no exophthalmos , mild stare NECK: supple, no palpable lymphadenopathy THYROID: unable to palpable thyroid , not tender CHEST: fair air entry, bilateral, CVS: S1,S2 , ABDOMEN: bowel sound present, benign, obese, no wide purple striae , no bruises EXTREMITIES: bilateral hyper pigmented skin with edema, clubbing or cyanosis, no palpable hand tremors Skin : acanthosis nigricans lab: 11/16 FT4 2.59 , tsh <0.02 , T4 8.88 , wbc 9 , LFT wnl thyroid antibodies (-) tsh < 0.02 ,ft4 2.31 , t4 12.1 , a1c 14 , wbc 10.4 Assessment uncontrolled IDDM steroids induced hyperglycemia hyperthyroidisim with afib , on cardiazem & lopressor bilateral cellutitis a fib bleeding /fever /sepsis obesity Plan -on lantus 22 units bid , hold tonight dose continue humalin R low dose coverage q6h on tapazole 10 mg po tid monior thyroid function Status: Chronic (2) Hyperthyroidism Status: Chronic (3) Atrial fibrillation with rapid ventricular response Status: Acute (4) Bilateral lower leg cellulitis Status: Acute (5) Steroid-induced hyperglycemia Status: Acute
[2016-11-20 05:33] LABS: ABG ALLEN TEST POS; ARTERIAL BLOOD HGB O2 SAT 94.7 % (95.0-98.0); CARBOXYHEMOGLOBIN 2.6 % (0.5-1.5); DRAW SITE LRAD; HHB 1.3 % (0.0-5.0); METHEMOGLOBIN 1.4 % (0.0-3.0)
[2016-11-20] MEDS: (Novolin R) Insulin Human Regular 100 units/ml vial SC SCH ×4 (05:49→23:44)
[2016-11-20 06:31] LABS: CHLORIDE 111 mmol/L (98-107); SODIUM 148 mmol/L (132-148)
[2016-11-20 06:32] LABS: POTASSIUM 3.5 mmol/L (3.6-5.2)
[2016-11-20 06:33] LABS: GFR AFRICAN-AMERICAN > 60
[2016-11-20 06:34] LABS: ALB/GLOB RATIO 0.7 (1.0-2.1); ALKALINE PHOSPHATASE 67 U/L (38-126); ALT/SGPT 33 U/L (9-52); AST/SGOT 21 U/L (14-36); BILIRUBIN,TOTAL 0.8 mg/dL (0.2-1.3); BLOOD UREA NITROGEN 26 mg/dL (7-17); CALCIUM 8.4 mg/dl (8.6-10.4); CARBON DIOXIDE 30 mmol/L (22-30); GLUCOSE,RANDOM 128 mg/dL (65-105); MAGNESIUM 2.1 mg/dL (1.6-2.3); PHOSPHOROUS 2.7 mg/dL (2.5-4.5); TOTAL PROTEIN 5.3 g/dL (6.3-8.3)
[2016-11-20] MEDS: Nystatin 100,000 Units/gm Cream(15 gm) TOP SCH ×3 (09:55→17:09)
[2016-11-20] MEDS: MethylPREDNISolone 40 mg Vial IVP SCH (09:56)
[2016-11-20] MEDS: Vitamins A & D Oint UD Foilpak TOP SCH ×2 (09:56→17:10)
[2016-11-20] MEDS: Metoprolol Succinate 12.5 mg XL PO SCH (09:56)
[2016-11-20] MEDS: Vancomycin 1 gm/NS 200 ml 200 ML IVPB SCH ×2 (09:57→21:01)
[2016-11-20] MEDS ORDERED: Potassium Chloride 20 mEq/15 ml LIQ UD PO ONE ×2 (10:15→11:21)
--- NOTE | 2016-11-20 12:36 | RAD ---
HISTORY: intubated COMPARISON: Comparison is made to the previous study dated 11/19/2016 FINDINGS: LUNGS: No significant interval change in the lungs noted since the previous exam. Persistent heterogeneous opacity at the right mid to lower lung PLEURA: There is suspicious for left pleural effusion. CARDIOVASCULAR: The cardiac silhouette is mildly enlarged P OSSEOUS STRUCTURES: No significant abnormalities. VISUALIZED UPPER ABDOMEN: The distal portion of the NG tube is not clearly visualized. OTHER FINDINGS: The right jugular central line is seen in place. IMPRESSION: No significant interval change in the lungs since the previous exam.
--- NOTE | 2016-11-20 15:24 | CP.CCUPN ---
CCU Subjective - Physician Review Events Since Last Encounter (Free Text): 11/20/16 15:21 Patient seen and examined in the intensive care unit. Case discussed during the morning rounds. Tolerating CPAP since yesterday but still does not follow commands and has copious secretions from the ET tube Subjective (Free Text): 11/07/16 15:16 Patient continues to demonstrate pitting edema in all extremities. Patient is arousable when questions are directed to her, however cannot respond with words, and furthermore appears confused. CCU Objective - Vital Signs / Intake & Output Vital Signs (Last 4 hours): Vital Signs Temp Pulse Resp BP Pulse Ox 11/20/16 15:02 117 H 23 136/55 L 97 11/20/16 15:00 120 H 29 H 97 11/20/16 14:02 119 H 28 H 145/113 H 96 11/20/16 14:00 103 H 18 157/68 H 96 11/20/16 13:03 101 H 24 157/68 H 96 11/20/16 13:00 111 H 19 97 11/20/16 12:02 94 H 145/87 96 11/20/16 12:00 98.9 F Intake and Output (Last 8hrs): Intake & Output 11/20/16 11/20/16 11/20/16 06:59 14:59 22:59 Intake Total 1150 1100 50 Output Total 735 360 Balance 415 740 50 Weight 262 lb 9.129 oz Intake: Intake, IV Amount 250 450 Right Distal Port 250 450 Tube Feeding 400 400 50 Other 500 250 Output: Urine 735 360 Urethral (Hemphill) 735 360 - Physical Exam Head: Positive for: Atraumatic, Normocephalic Pupils: Positive for: PERRL. Negative for: Sluggish, Non-Reactive Extroacular Muscles: Positive for: EOMI. Negative for: Gaze Palsy Conjunctiva: Positive for: Normal. Negative for: Injected, Icteric Mouth: Positive for: Moist Mucous Membranes Nose (Internal): Positive for: Other (packing in place) Neck: Positive for: Normal Range of Motion, Trachea Midline. Negative for: Meningeal Signs, MIDLINE TENDERNESS, Paraspinal Tenderness, JVD, Lymphadenopathy , Bruit, Other Respiratory/Chest: Positive for: Wheezes, Decreased Breath Sounds, Other ( intubated). Negative for: Rales Cardiovascular: Positive for: Irregular Rhythm, Peripheal Pulses Present, Tachycardic. Negative for: Murmurs, Normal S1, S2 Abdomen: Negative for: Tenderness, Distention Upper Extremity: Positive for: Normal Inspection Lower Extremity: Positive for: Edema Neurological: Negative for: Speech Normal Psychiatric: Negative for: Alert, Oriented x 3 - Medications Active Medications: Active Medications Generic Name Dose Route Start Last Admin Trade Name Freq PRN Reason Stop Dose Admin Acetaminophen 650 mg 11/14/16 20:10 11/16/16 08:59 Tylenol 650mg/20.3ml Solution Ud GT 650 mg Q6 PRN Administration Fever >100.4 F Amiodarone HCl 200 mg 11/15/16 18:00 11/20/16 09:55 Cordarone PO 200 mg Q8H [facility] Administration Diltiazem HCl 60 mg 11/15/16 12:00 11/20/16 12:12 Cardizem PO 60 mg Q6 [facility] Administration Propofol 100 mls @ 3.493 mls/hr 11/08/16 08:29 11/18/16 06:15 Diprivan IV 6.986 mls/hr .Q24H PRN Administration TITRATE PER MD ORDER Protocol 5 MCG/KG/MIN Imipenem/Cilastatin Sodium 1, 250 mls @ 250 mls/hr 11/15/16 13:00 11/20/16 12: 12 000 mg/ Sodium Chloride IVPB 250 mls/hr Q8H [facility] Administration Vancomycin/Sodium Chloride 200 mls @ 166.6 mls/hr 11/19/16 10:00 11/20/16 09:57 Vancocin IVPB 166.6 mls/hr Q12H [facility] Administration Insulin Glargine 22 unit 11/17/16 20:17 11/18/16 21:39 Lantus SC 22 u 0800,2000 [facility] Administration Insulin Human Regular 0 unit 11/17/16 08:38 11/20/16 11:43 Novolin R SC 2 unit Q6 [facility] Administration Protocol Methimazole 10 mg 11/18/16 10:00 11/20/16 13:43 Tapazole PO 10 mg TID [facility] Administration Methylprednisolone 10 mg 11/17/16 10:00 11/20/16 09:56 Solu-Medrol IVP 10 mg DAILY [facility] Administration Metoprolol Succinate 12.5 mg 11/16/16 10:30 11/20/16 09:56 Toprol Xl PO 12.5 mg DAILY [facility] Administration Nystatin 0 ea 11/04/16 18:00 11/20/16 13:44 Mycostatin Cream TOP 1 applic TID [facility] Administration Pantoprazole Sodium 40 mg 11/04/16 16:45 11/20/16 09:56 Protonix Inj IVP 40 mg DAILY [facility] Administration Vitamin A 1 ea 11/09/16 18:00 11/20/16 09:56 Vitamin A & D Oint Ud Foilpak TOP 1 ea BID [facility] Administration - Patient Studies Lab Studies: Microbiology Studies 11/15/16 12:15 Blood Culture - Final Blood-Thru Central Line NO GROWTH AFTER 5 DAYS Gram Stain - Final TEST NOT PERFORMED 11/15/16 12:45 Blood Culture - Final Blood-Thru Central Line NO GROWTH AFTER 5 DAYS Gram Stain - Final TEST NOT PERFORMED Lab Studies 11/20/16 11/20/16 11/20/16 Range/Units 11:35 06:04 05:20 Puncture Site pCO2 (35-45) mm/Hg pO2 (80-100) mm/Hg HCO3 (21-28) mmol/L ABG pH (7.35-7.45) ABG Total CO2 (22-28) mmol/L ABG O2 Saturation (95-98) % ABG Base Excess (-2.0-3.0) mmol/L ABG Hemoglobin (11.7-17.4) g/dL ABG Carboxyhemoglobin (0.5-1.5) % POC ABG HHb (Measured) (0.0-5.0) % ABG Methemoglobin (0.0-3.0) % Chaz Test A-a O2 Difference mm/Hg Respiratory Index Hgb O2 Saturation (95.0-98.0) % FiO2 % Pressure Support CPAP Sodium 148 (132-148) mmol/L Potassium 3.5 L (3.6-5.2) mmol/L Chloride 111 H (98-107) mmol/L Carbon Dioxide 30 (22-30) mmol/L Anion Gap 11 (10-20) BUN 26 H (7-17) mg/dL Creatinine 0.5 L (0.7-1.2) MG/DL Est GFR ( Amer) > 60 Est GFR (Non-Af Amer) > 60 POC Glucose (mg/dL) 181 H 165 H (65-110) mg/dL Random Glucose 128 H (65-105) mg/dL Calcium 8.4 L (8.6-10.4) mg/dl Phosphorus 2.7 (2.5-4.5) mg/dL Magnesium 2.1 (1.6-2.3) mg/dL Total Bilirubin 0.8 (0.2-1.3) mg/dL AST 21 (14-36) U/L ALT 33 (9-52) U/L Alkaline Phosphatase 67 (38-126) U/L Total Protein 5.3 L (6.3-8.3) g/dL Albumin 2.1 L (3.5-5.0) g/dL Globulin 3.2 (2.2-3.9) gm/dL Albumin/Globulin Ratio 0.7 L (1.0-2.1) 11/20/16 11/19/16 11/19/16 Range/Units 05:16 23:32 17:17 Puncture Site Lrad pCO2 48 H (35-45) mm/Hg pO2 77 L (80-100) mm/Hg HCO3 29.4 H (21-28) mmol/L ABG pH 7.42 (7.35-7.45) ABG Total CO2 32.6 H (22-28) mmol/L ABG O2 Saturation 98.6 H (95-98) % ABG Base Excess 5.8 H (-2.0-3.0) mmol/L ABG Hemoglobin 9.6 L (11.7-17.4) g/dL ABG Carboxyhemoglobin 2.6 H (0.5-1.5) % POC ABG HHb (Measured) 1.3 (0.0-5.0) % ABG Methemoglobin 1.4 (0.0-3.0) % Chaz Test Pos A-a O2 Difference 77.0 mm/Hg Respiratory Index 1.0 Hgb O2 Saturation 94.7 L (95.0-98.0) % FiO2 30.0 % Pressure Support 12 CPAP 5 Sodium (132-148) mmol/L Potassium (3.6-5.2) mmol/L Chloride (98-107) mmol/L Carbon Dioxide (22-30) mmol/L Anion Gap (10-20) BUN (7-17) mg/dL Creatinine (0.7-1.2) MG/DL Est GFR ( Amer) Est GFR (Non-Af Amer) POC Glucose (mg/dL) 111 H 159 H (65-110) mg/dL Random Glucose (65-105) mg/dL Calcium (8.6-10.4) mg/dl Phosphorus (2.5-4.5) mg/dL Magnesium (1.6-2.3) mg/dL Total Bilirubin (0.2-1.3) mg/dL AST (14-36) U/L ALT (9-52) U/L Alkaline Phosphatase (38-126) U/L Total Protein (6.3-8.3) g/dL Albumin (3.5-5.0) g/dL Globulin (2.2-3.9) gm/dL Albumin/Globulin Ratio (1.0-2.1) Laboratory Results - last 24 hr 11/19/16 11/19/16 11/20/16 17:17 23:32 05:16 Puncture Site Lrad pCO2 48 H pO2 77 L HCO3 29.4 H ABG pH 7.42 ABG Total CO2 32.6 H ABG O2 Saturation 98.6 H ABG Base Excess 5.8 H ABG Hemoglobin 9.6 L ABG Carboxyhemoglobin 2.6 H POC ABG HHb (Measured) 1.3 ABG Methemoglobin 1.4 Chaz Test Pos A-a O2 Difference 77.0 Respiratory Index 1.0 Hgb O2 Saturation 94.7 L FiO2 30.0 Pressure Support 12 CPAP 5 Sodium Potassium Chloride Carbon Dioxide Anion Gap BUN Creatinine Est GFR ( Amer) Est GFR (Non-Af Amer) POC Glucose (mg/dL) 159 H 111 H Random Glucose Calcium Phosphorus Magnesium Total Bilirubin AST ALT Alkaline Phosphatase Total Protein Albumin Globulin Albumin/Globulin Ratio 11/20/16 11/20/16 11/20/16 05:20 06:04 11:35 Puncture Site pCO2 pO2 HCO3 ABG pH ABG Total CO2 ABG O2 Saturation ABG Base Excess ABG Hemoglobin ABG Carboxyhemoglobin POC ABG HHb (Measured) ABG Methemoglobin Chaz Test A-a O2 Difference Respiratory Index Hgb O2 Saturation FiO2 Pressure Support CPAP Sodium 148 Potassium 3.5 L Chloride 111 H Carbon Dioxide 30 Anion Gap 11 BUN 26 H Creatinine 0.5 L Est GFR ( Amer) > 60 Est GFR (Non-Af Amer) > 60 POC Glucose (mg/dL) 165 H 181 H Random Glucose 128 H Calcium 8.4 L Phosphorus 2.7 Magnesium 2.1 Total Bilirubin 0.8 AST 21 ALT 33 Alkaline Phosphatase 67 Total Protein 5.3 L Albumin 2.1 L Globulin 3.2 Albumin/Globulin Ratio 0.7 L Fingerstick Blood Sugar Results: 181 Review of Systems - Review of Systems Systems not reviewed;Unavailable: Intubated Critical Care Progress Note - Ventilator Checklist Head of Bed 30 Degrees: Yes Daily Sedation Vacation: Yes Daily Spontaneous Breathing Trial: Yes PUD Prophalyxis: Yes DVT Prophylaxis: Yes - Vent Settings MODE:: CPAP Assessment/Plan (1) Respiratory failure with hypoxia Assessment and plan: CPAP trial Still has copious secretions from the ET tube and not fully awake, hold off to extubation Continue feeding, IV antibiotics, nebulizer treatments and potassium supplement Current Visit: Yes Status: Acute Comment: Continue CPAP trial Still has copious secretions and does not follow commands Continue IV antibiotics and follow-up chest x-ray Bronchoscopy and bronchoalveolar lavage (2) Atrial fibrillation with rapid ventricular response Current Visit: Yes Status: Acute
--- NOTE | 2016-11-20 19:34 | CP.PCM.PN ---
Subjective - Date & Time of Evaluation Date of Evaluation: 11/20/16 Time of Evaluation: 19:31 - Subjective Subjective: uncontrolled IDDM Objective - Vital Signs/Intake and Output Vital Signs (last 24 hours): Temp Pulse Resp BP Pulse Ox 98.4 F 133 H 20 155/70 H 96 11/20/16 16:00 11/20/16 19:02 11/20/16 19:02 11/20/16 19:02 11/20/16 19:02 Intake and Output: 11/20/16 11/21/16 18:59 06:59 Intake Total 1550 300 Output Total 610 150 Balance 940 150 - Medications Medications: Current Medications Acetaminophen (Tylenol 650mg/20.3ml Solution Ud) 650 mg GT Q6 PRN PRN Reason: Fever >100.4 F Last Admin: 11/16/16 08:59 Dose: 650 mg Amiodarone HCl (Cordarone) 200 mg PO Q8H [facility] Last Admin: 11/20/16 17:09 Dose: 200 mg Diltiazem HCl (Cardizem) 60 mg PO Q6 [facility] Last Admin: 11/20/16 17:09 Dose: 60 mg Propofol (Diprivan) 100 mls @ 3.493 mls/hr IV .Q24H PRN; Protocol; 5 MCG/KG/MIN PRN Reason: TITRATE PER MD ORDER Last Admin: 11/18/16 06:15 Dose: 6.986 mls/hr Imipenem/Cilastatin Sodium 1, (000 mg/ Sodium Chloride) 250 mls @ 250 mls/hr IVPB Q8H [facility] Last Admin: 11/20/16 12:12 Dose: 250 mls/hr Vancomycin/Sodium Chloride (Vancocin) 200 mls @ 166.6 mls/hr IVPB Q12H [facility] Last Admin: 11/20/16 09:57 Dose: 166.6 mls/hr Insulin Glargine (Lantus) 22 unit SC 0800,1999 [facility] Last Admin: 11/18/16 21:39 Dose: 22 u Insulin Human Regular (Novolin R) 0 unit SC Q6 [facility] PRN Reason: Protocol Last Admin: 11/20/16 17:53 Dose: 4 unit Methimazole (Tapazole) 10 mg PO TID [facility] Last Admin: 11/20/16 17:09 Dose: 10 mg Methylprednisolone (Solu-Medrol) 10 mg IVP DAILY [facility] Last Admin: 11/20/16 09:56 Dose: 10 mg Metoprolol Succinate (Toprol Xl) 12.5 mg PO DAILY [facility] Last Admin: 11/20/16 09:56 Dose: 12.5 mg Nystatin (Mycostatin Cream) 0 ea TOP TID [facility] Last Admin: 11/20/16 17:09 Dose: 1 applic Pantoprazole Sodium (Protonix Inj) 40 mg IVP DAILY [facility] Last Admin: 11/20/16 09:56 Dose: 40 mg Vitamin A (Vitamin A & D Oint Ud Foilpak) 1 ea TOP BID [facility] Last Admin: 11/20/16 17:10 Dose: 1 ea - Labs Labs: 11/19/16 05:58 11/20/16 06:04 PT 12.0 SECONDS (9.7-12.2) 11/13/16 04:57 INR 1.1 11/13/16 04:57 APTT 38 SECONDS (21-34) H D 11/13/16 04:57 Assessment and Plan (1) Diabetes mellitus, insulin dependent (IDDM), uncontrolled Assessment & Plan: 1) Diabetes mellitus, insulin dependent (IDDM), uncontrolled Assessment & Plan: Assessment & Plan: Endocrine consult f/u reason for consult: uncontrolled diabetes source : chrart review , pt awake , alert with OGT tube for bleeding unable to give history & as per chart review poor historian is 61 y/o admitted for a fib with rapid venttirucular resonse & DKA / bilateral lower extremities cellulites ,pt was intubated & also started on insulin drip glucose on admission 1023 . also was started on steroid 40 mg po bid , endocrine was contacted yesterday 11/12 for uncontrolled IDDM glucose in 300- 400 & also pt with hyperthyroidism on tapazole , blood glucose log :150-200 , few 11-120 , still on steroid 10 mg qd & continuos feeding , same rate NO hypoglycemia Allergy NKDA Past medical history : HTN , pedal edema Past surgical history : not documented Psychiatry history : (+) psychiatry disorder Social history : (+)smoking , ETOH use , illicit drug use Family history : unknown ROS: Constitutional: no fever ,tiredness/weakness .HEENT: no earache, change in voice .Respiratory: no cough, sob . CVS :no chest pain, no palpitations . Abdomen : no abdominal pain, no nausea /vomiting , no change bowel movement . 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 Extremities : (+) edema , no tremors . Skin: no itching, no rash Physical exam Well developed awake & alert ,on C-pap , on continuos feeding VSS HEENT: norm cephalic, atraumatic , no lid lag , no exophthalmos , mild stare NECK: supple, no palpable lymphadenopathy THYROID: unable to palpable thyroid , not tender CHEST: fair air entry, bilateral, CVS: S1,S2 , ABDOMEN: bowel sound present, benign, obese, no wide purple striae , no bruises EXTREMITIES: bilateral hyper pigmented skin with edema, clubbing or cyanosis, no palpable hand tremors Skin : acanthosis nigricans lab: 11/16 FT4 2.59 , tsh <0.02 , T4 8.88 , wbc 9 , LFT wnl thyroid antibodies (-) tsh < 0.02 ,ft4 2.31 , t4 12.1 , a1c 14 , wbc 10.4 Assessment uncontrolled IDDM steroids induced hyperglycemia hyperthyroidisim with afib , on cardiazem & lopressor bilateral cellutitis a fib bleeding /fever /sepsis obesity Plan - lantus on hold continue humalin R low dose coverage q6h on tapazole 10 mg po tid monior thyroid function Status: Chronic (2) Hyperthyroidism Status: Chronic (3) Atrial fibrillation with rapid ventricular response Status: Acute (4) Bilateral lower leg cellulitis Status: Acute (5) Steroid-induced hyperglycemia Status: Acute
--- NOTE | 2016-11-20 23:08 | CP.PCM.PN ---
Subjective - Date & Time of Evaluation Date of Evaluation: 11/19/16 Time of Evaluation: 09:48 - Subjective Subjective: Pt seen & evaluated, is more alert, her O2 supplementation is down to 30% FiO2. Objective - Vital Signs/Intake and Output Vital Signs (last 24 hours): Temp Pulse Resp BP Pulse Ox 98.4 F 101 H 22 133/28 L 96 11/20/16 20:00 11/20/16 21:02 11/20/16 21:02 11/20/16 21:02 11/20/16 21:02 Intake and Output: 11/20/16 11/21/16 18:59 06:59 Intake Total 1550 650 Output Total 610 300 Balance 940 350 - Medications Medications: Current Medications Acetaminophen (Tylenol 650mg/20.3ml Solution Ud) 650 mg GT Q6 PRN PRN Reason: Fever >100.4 F Last Admin: 11/16/16 08:59 Dose: 650 mg Amiodarone HCl (Cordarone) 200 mg PO Q8H [facility] Last Admin: 11/20/16 17:09 Dose: 200 mg Diltiazem HCl (Cardizem) 60 mg PO Q6 [facility] Last Admin: 11/20/16 17:09 Dose: 60 mg Propofol (Diprivan) 100 mls @ 3.493 mls/hr IV .Q24H PRN; Protocol; 5 MCG/KG/MIN PRN Reason: TITRATE PER MD ORDER Last Admin: 11/18/16 06:15 Dose: 6.986 mls/hr Imipenem/Cilastatin Sodium 1, (000 mg/ Sodium Chloride) 250 mls @ 250 mls/hr IVPB Q8H [facility] Last Admin: 11/20/16 20:13 Dose: 250 mls/hr Vancomycin/Sodium Chloride (Vancocin) 200 mls @ 166.6 mls/hr IVPB Q12H [facility] Last Admin: 11/20/16 21:01 Dose: 166.6 mls/hr Insulin Glargine (Lantus) 22 unit SC 0800,1999 [facility] Last Admin: 11/18/16 21:39 Dose: 22 u Insulin Human Regular (Novolin R) 0 unit SC Q6 [facility] PRN Reason: Protocol Last Admin: 11/20/16 17:53 Dose: 4 unit Methimazole (Tapazole) 10 mg PO TID [facility] Last Admin: 11/20/16 17:09 Dose: 10 mg Methylprednisolone (Solu-Medrol) 10 mg IVP DAILY [facility] Last Admin: 11/20/16 09:56 Dose: 10 mg Metoprolol Succinate (Toprol Xl) 12.5 mg PO DAILY [facility] Last Admin: 11/20/16 09:56 Dose: 12.5 mg Nystatin (Mycostatin Cream) 0 ea TOP TID [facility] Last Admin: 11/20/16 17:09 Dose: 1 applic Pantoprazole Sodium (Protonix Ec Tab) 40 mg PO DAILY [facility] Vitamin A (Vitamin A & D Oint Ud Foilpak) 1 ea TOP BID [facility] Last Admin: 11/20/16 17:10 Dose: 1 ea - Labs Labs: 11/19/16 05:58 11/20/16 06:04 PT 12.0 SECONDS (9.7-12.2) 11/13/16 04:57 INR 1.1 11/13/16 04:57 APTT 38 SECONDS (21-34) H D 11/13/16 04:57 - Constitutional Appears: No Acute Distress, Chronically Ill - Head Exam Head Exam: ATRAUMATIC, NORMAL INSPECTION, NORMOCEPHALIC - Eye Exam Eye Exam: EOMI, Normal appearance, PERRL Pupil Exam: NORMAL ACCOMODATION, PERRL - ENT Exam ENT Exam: Mucous Membranes Moist, Normal Exam - Respiratory Exam Respiratory Exam: Clear to Ausculation Bilateral, NORMAL BREATHING PATTERN - Cardiovascular Exam Cardiovascular Exam: REGULAR RHYTHM, +S1, +S2. absent: Murmur - GI/Abdominal Exam GI & Abdominal Exam: Soft, Normal Bowel Sounds. absent: Tenderness - Neurological Exam Neurological Exam: Alert, Awake, CN II-XII Intact Assessment and Plan (1) Diabetes Status: Chronic (2) HTN (hypertension) Status: Chronic (3) Bilateral lower leg cellulitis Status: Deleted (4) DKA (diabetic ketoacidoses) Status: Resolved (5) Atrial fibrillation with rapid ventricular response Status: Acute (6) CHF (congestive heart failure) Status: Acute (7) Pleural effusion Status: Acute - Assessment and Plan (Free Text) Plan: continue mechanical ventilator, pulmonary eval, antibiotics
--- NOTE | 2016-11-20 23:52 | CP.PCM.PN ---
Subjective - Date & Time of Evaluation Date of Evaluation: 11/20/16 Time of Evaluation: 09:52 - Subjective Subjective: Pt is seen & evaluated in ICU,she is improving, she had MRSA in bronchial washings is on Iv antibiotics Imipenim as per ID, blood sugars are improving, DKA resolved Objective - Vital Signs/Intake and Output Vital Signs (last 24 hours): Temp Pulse Resp BP Pulse Ox 98.4 F 122 H 21 166/100 H 97 11/20/16 20:00 11/20/16 23:02 11/20/16 23:02 11/20/16 23:02 11/20/16 23:02 Intake and Output: 11/20/16 11/21/16 18:59 06:59 Intake Total 1550 950 Output Total 610 425 Balance 940 525 - Medications Medications: Current Medications Acetaminophen (Tylenol 650mg/20.3ml Solution Ud) 650 mg GT Q6 PRN PRN Reason: Fever >100.4 F Last Admin: 11/16/16 08:59 Dose: 650 mg Amiodarone HCl (Cordarone) 200 mg PO Q8H [facility] Last Admin: 11/20/16 17:09 Dose: 200 mg Diltiazem HCl (Cardizem) 60 mg PO Q6 [facility] Last Admin: 11/20/16 23:44 Dose: 60 mg Propofol (Diprivan) 100 mls @ 3.493 mls/hr IV .Q24H PRN; Protocol; 5 MCG/KG/MIN PRN Reason: TITRATE PER MD ORDER Last Admin: 11/18/16 06:15 Dose: 6.986 mls/hr Imipenem/Cilastatin Sodium 1, (000 mg/ Sodium Chloride) 250 mls @ 250 mls/hr IVPB Q8H [facility] Last Admin: 11/20/16 20:13 Dose: 250 mls/hr Vancomycin/Sodium Chloride (Vancocin) 200 mls @ 166.6 mls/hr IVPB Q12H [facility] Last Admin: 11/20/16 21:01 Dose: 166.6 mls/hr Insulin Glargine (Lantus) 22 unit SC 0800,2000 [facility] Last Admin: 11/18/16 21:39 Dose: 22 u Insulin Human Regular (Novolin R) 0 unit SC Q6 [facility] PRN Reason: Protocol Last Admin: 11/20/16 23:44 Dose: 6 unit Methimazole (Tapazole) 10 mg PO TID [facility] Last Admin: 11/20/16 17:09 Dose: 10 mg Methylprednisolone (Solu-Medrol) 10 mg IVP DAILY [facility] Last Admin: 11/20/16 09:56 Dose: 10 mg Metoprolol Succinate (Toprol Xl) 12.5 mg PO DAILY [facility] Last Admin: 11/20/16 09:56 Dose: 12.5 mg Nystatin (Mycostatin Cream) 0 ea TOP TID [facility] Last Admin: 11/20/16 17:09 Dose: 1 applic Pantoprazole Sodium (Protonix Ec Tab) 40 mg PO DAILY [facility] Vitamin A (Vitamin A & D Oint Ud Foilpak) 1 ea TOP BID [facility] Last Admin: 11/20/16 17:10 Dose: 1 ea - Labs Labs: 11/19/16 05:58 11/20/16 06:04 PT 12.0 SECONDS (9.7-12.2) 11/13/16 04:57 INR 1.1 11/13/16 04:57 APTT 38 SECONDS (21-34) H D 11/13/16 04:57 - Constitutional Appears: No Acute Distress - Head Exam Head Exam: ATRAUMATIC, NORMAL INSPECTION, NORMOCEPHALIC - Eye Exam Eye Exam: EOMI, Normal appearance, PERRL Pupil Exam: NORMAL ACCOMODATION, PERRL - Respiratory Exam Respiratory Exam: Clear to Ausculation Bilateral, NORMAL BREATHING PATTERN - Cardiovascular Exam Cardiovascular Exam: REGULAR RHYTHM, +S1, +S2. absent: Murmur - GI/Abdominal Exam GI & Abdominal Exam: Soft, Normal Bowel Sounds. absent: Tenderness - Neurological Exam Neurological Exam: Alert, Awake, CN II-XII Intact - Psychiatric Exam Psychiatric exam: Normal Affect, Normal Mood Assessment and Plan (1) Diabetes Status: Chronic (2) HTN (hypertension) Status: Chronic (3) Bilateral lower leg cellulitis Status: Deleted (4) DKA (diabetic ketoacidoses) Status: Resolved (5) Atrial fibrillation with rapid ventricular response Status: Acute (6) CHF (congestive heart failure) Status: Acute (7) Pleural effusion Status: Acute
[2016-11-21] MEDS: (Novolin R) Insulin Human Regular 100 units/ml vial SC SCH ×3 (05:04→17:25)
[2016-11-21 05:31] LABS: ABG ALLEN TEST POS; ARTERIAL BLOOD HGB O2 SAT 94.5 % (95.0-98.0); CARBOXYHEMOGLOBIN 2.4 % (0.5-1.5); DRAW SITE RRAD; HHB 1.9 % (0.0-5.0); METHEMOGLOBIN 1.2 % (0.0-3.0)
[2016-11-21 06:52] LABS: BASO # 0.1 K/uL (0.0-0.2); BASO % 0.5 % (0.0-2.0); EOS % 0.2 % (0.0-4.0); HEMATOCRIT 32.8 % (34.0-47.0); LYMPH # 0.9 K/uL (1.0-4.3); LYMPH % 9.6 % (20.0-40.0); MEAN CELL VOLUME 91.1 fL (81.0-99.0); MEAN CORPUSCULAR HEMOGLOBIN 28.8 pg (27.0-31.0); MEAN CORPUSCULAR HGB CONC 31.6 g/dL (33.0-37.0); MEAN PLATELET VOLUME 9.5 fL (7.2-11.7); MONO # 0.9 K/uL (0.0-0.8); MONO % 8.9 % (0.0-10.0); NRBC % 0.2 % (0.0-2.0); PLATELET COUNT 205 K/uL (130-400); RED CELL DISTRIBUTION WIDTH 14.9 % (11.5-14.5); WHITE BLOOD COUNT 9.8 K/uL (4.8-10.8)
--- NOTE | 2016-11-21 07:11 | CP.CCUPN ---
CCU Subjective - Physician Review Subjective (Free Text): 11/08/16 13:06 Pt seen in mild distress requiring intubation. Two large pieces of dried mucus were extracted from the patient's throat obstructing vocal cords. Patient intubated. TLC line was also placed to ensure better IV access. As there is no power of attorney law clerk or legal guardian, an administrative consent was obtained for central line. An ROS could not be obtained at this time because patient is intubated and sedated. 11/09/16 13:15 Patient seen at beside intubated and sedated. GCS 8T (FiO2 60 PEEP 5 VT 500 RR 16). No acute events overnight per nursing. A fib is rate controlled. Patient is stable. New vent settings after rounds PRVC (FiO2 60, PEEP 5, RR 12 VT 500). ROS couldn't be obtained because patient is intubated and sedated. 11/10/16 16:50 Pt seen and examined in no acute distress. Patient spiked a fever during overnight shift which initially responded to Tylenol and later returned during the morning shift. Patient administered tylenol and cooling blankets. Patient underwent thoracentesis for pleural effusion. Tolerated procedure well. Patient is rate controlled. ROS couldn't be obtained because patient is intubated and sedated. 11/11/16 8:34 Pt seen and examined in no acute distress. Patient seen at beside intubated and sedated. (FiO2 50 PEEP 5 RR 14 VT 500). Patient is awake, but does not follow commands. Patient has low grade fever this morning (T max 100.2, T 99.0-100.2). A fib is rate controlled. Patient is stable. ROS couldn't be obtained because patient was intubated and sedated at the time of evaluation 11/14/16 15:35 Patient seen at bedside in no acute distress. Patient intubated with vent settings of FiO2 50%, RR 14, PEEP 5, TV 500% and is saturating well at 100%. GCS 10T (E4 VT M6). Patient's last dose of propofol was given 11/12. Patient opens eyes spontaneously and moves extremities on her own. CPAP trial was done after morning rounds. Patient was tachycardic prior to morning rounds, but is currently rate controlled. Patient is stable. Patient spiked a fever overnight and is currently having a low grade fever (T max 101.1, T current 99.3). ROS could not be obtained because patient is intubated at time of evaluation. Over the weekend, NGT removed and replaced with OGT with Afrin spray in nose bilaterally. Right sided nasal packing inserted where NGT had been. 11/15/16 15:39 Patient seen at bedside in no acute distress. Patient intubated with vent settings of FiO2 50%, RR 14, PEEP 5, TV 500% and is saturating well at 100%. GCS 10T (E4 VT M6). Patient's last dose of propofol was given 11/12. Patient opens eyes spontaneously and moves extremities on her own. Patient is stable but still lethargic. Patient spiked a fever overnight and has normal temperature now (T max 101, T current 98.4). ROS could not be obtained because patient is intubated and lethargic at time of evaluation. 11/16/16 13:09 Patient seen at bedside in no acute distress. Patient intubated with vent settings of FiO2 50%, RR 14, PEEP 5, TV 500% and is saturating well at 100%. Patient is stable but still lethargic. Patient spiked a fever overnight and has normal temperature now (T max 101.4, T current 101.3). ROS could not be obtained because patient is intubated at time of evaluation. 11/18/16 20:33 Pt seen and examined in no acute distress. Patient intubated but tolerating CPAP trial. Patient opens eyes spontaneously and moves extremities on her own. Patient is stable but moderately lethargic. Patient afebrile overnight. ROS could not be obtained because patient is intubated at time of evaluation. 11/21/16 14:44 Pt seen and examined in no acute distress. No significant events overnight per nursing. Patient alert and restless currently though intermittently somnolent. Patient gestured that she would like the tube out. At this time, patient not able to comply to an ROS. CCU Objective - Vital Signs / Intake & Output Vital Signs (Last 4 hours): Vital Signs Temp Pulse Resp BP Pulse Ox 11/21/16 07:02 105 H 23 147/88 93 L 11/21/16 07:00 112 H 18 96 11/21/16 06:10 97 H 22 96 11/21/16 06:02 90 21 132/53 L 95 11/21/16 06:00 94 H 21 95 11/21/16 05:56 95 H 20 95 11/21/16 05:02 100 H 19 136/63 95 11/21/16 05:00 105 H 29 H 96 11/21/16 04:52 100 H 26 H 140/57 L 94 L 11/21/16 04:50 106 H 23 200/74 H 95 11/21/16 04:02 112 H 26 H 178/81 H 96 11/21/16 04:00 98.6 F 113 H 27 H 132/53 L 96 11/21/16 03:36 122 H 27 H 97 Intake and Output (Last 8hrs): Intake & Output 11/20/16 11/21/16 11/21/16 22:59 06:59 14:59 Intake Total 1350 950 Output Total 575 515 Balance 775 435 Weight 246 lb 11.156 oz Intake: Intake, IV Amount 450 250 Right Medial Port 450 250 Internal Jugular Tube Feeding 400 450 Other 500 250 Output: Urine 575 515 Urethral (H[place]ill) 575 515 Other: # Bowel Movements 1 1 - Physical Exam Head: Positive for: Atraumatic, Normocephalic Pupils: Positive for: PERRL. Negative for: Sluggish, Non-Reactive Extroacular Muscles: Positive for: EOMI. Negative for: Gaze Palsy Conjunctiva: Positive for: Normal. Negative for: Injected, Icteric Mouth: Positive for: Moist Mucous Membranes Neck: Positive for: Normal Range of Motion, Trachea Midline. Negative for: Meningeal Signs, MIDLINE TENDERNESS, Paraspinal Tenderness, JVD, Lymphadenopathy , Bruit, Other Respiratory/Chest: Positive for: Wheezes, Decreased Breath Sounds, Other ( intubated). Negative for: Rales Cardiovascular: Positive for: Irregular Rhythm, Peripheal Pulses Present, Tachycardic. Negative for: Murmurs, Normal S1, S2 Abdomen: Negative for: Tenderness, Distention Upper Extremity: Positive for: Normal Inspection Lower Extremity: Positive for: Edema Neurological: Negative for: Speech Normal Psychiatric: Negative for: Alert, Oriented x 3 - Medications Active Medications: Active Medications Generic Name Dose Route Start Last Admin Trade Name Freq PRN Reason Stop Dose Admin Acetaminophen 650 mg 11/14/16 20:10 11/16/16 08:59 Tylenol 650mg/20.3ml Solution Ud GT 650 mg Q6 PRN Administration Fever >100.4 F Amiodarone HCl 200 mg 11/15/16 18:00 11/21/16 01:32 Cordarone PO 200 mg Q8H [facility] Administration Diltiazem HCl 60 mg 11/15/16 12:00 11/21/16 05:04 Cardizem PO 60 mg Q6 [facility] Administration Propofol 100 mls @ 3.493 mls/hr 11/08/16 08:29 11/18/16 06:15 Diprivan IV 6.986 mls/hr .Q24H PRN Administration TITRATE PER MD ORDER Protocol 5 MCG/KG/MIN Imipenem/Cilastatin Sodium 1, 250 mls @ 250 mls/hr 11/15/16 13:00 11/21/16 04: 11 000 mg/ Sodium Chloride IVPB 250 mls/hr Q8H [facility] Administration Vancomycin/Sodium Chloride 200 mls @ 166.6 mls/hr 11/19/16 10:00 11/20/16 21:01 Vancocin IVPB 166.6 mls/hr Q12H [facility] Administration Insulin Glargine 22 unit 11/17/16 20:17 11/18/16 21:39 Lantus SC 22 u 0800,2000 [facility] Administration Insulin Human Regular 0 unit 11/17/16 08:38 11/21/16 05:04 Novolin R SC 2 unit Q6 [facility] Administration Protocol Methimazole 10 mg 11/18/16 10:00 11/20/16 17:09 Tapazole PO 10 mg TID [facility] Administration Methylprednisolone 10 mg 11/17/16 10:00 11/20/16 09:56 Solu-Medrol IVP 10 mg DAILY [facility] Administration Metoprolol Succinate 12.5 mg 11/16/16 10:30 11/20/16 09:56 Toprol Xl PO 12.5 mg DAILY [facility] Administration Nystatin 0 ea 11/04/16 18:00 11/20/16 17:09 Mycostatin Cream TOP 1 applic TID [facility] Administration Pantoprazole Sodium 40 mg 11/21/16 10:00 Protonix Ec Tab PO DAILY [facility] Vitamin A 1 ea 11/09/16 18:00 11/20/16 17:10 Vitamin A & D Oint Ud Foilpak TOP 1 ea BID [facility] Administration - Patient Studies Lab Studies: Microbiology Studies 11/15/16 12:15 Blood Culture - Final Blood-Thru Central Line NO GROWTH AFTER 5 DAYS Gram Stain - Final TEST NOT PERFORMED 11/15/16 12:45 Blood Culture - Final Blood-Thru Central Line NO GROWTH AFTER 5 DAYS Gram Stain - Final TEST NOT PERFORMED Lab Studies 11/21/16 11/21/16 11/21/16 Range/Units 06:45 05:21 05:00 WBC 9.8 (4.8-10.8) K/uL RBC 3.60 L (3.80-5.20) Mil/uL Hgb 10.4 L (11.0-16.0) g/dL Hct 32.8 L (34.0-47.0) % MCV 91.1 (81.0-99.0) fL MCH 28.8 (27.0-31.0) pg MCHC 31.6 L (33.0-37.0) g/dL RDW 14.9 H (11.5-14.5) % Plt Count 205 (130-400) K/uL MPV 9.5 (7.2-11.7) fL Neut % (Auto) 80.8 H (50.0-75.0) % Lymph % (Auto) 9.6 L (20.0-40.0) % Maury % (Auto) 8.9 (0.0-10.0) % Eos % (Auto) 0.2 (0.0-4.0) % Baso % (Auto) 0.5 (0.0-2.0) % Neut # 7.9 H (1.8-7.0) K/uL Lymph # 0.9 L (1.0-4.3) K/uL Maury # 0.9 H (0.0-0.8) K/uL Eos # 0.0 (0.0-0.7) K/uL Baso # 0.1 (0.0-0.2) K/uL Puncture Site Rrad pCO2 47 H (35-45) mm/Hg pO2 73 L (80-100) mm/Hg HCO3 31.5 H (21-28) mmol/L ABG pH 7.46 H (7.35-7.45) ABG Total CO2 34.8 H (22-28) mmol/L ABG O2 Saturation 98.0 (95-98) % ABG Base Excess 8.5 H (-2.0-3.0) mmol/L ABG Hemoglobin 9.9 L (11.7-17.4) g/dL ABG Carboxyhemoglobin 2.4 H (0.5-1.5) % POC ABG HHb (Measured) 1.9 (0.0-5.0) % ABG Methemoglobin 1.2 (0.0-3.0) % Chaz Test Pos A-a O2 Difference 82.0 mm/Hg Respiratory Index 1.1 Hgb O2 Saturation 94.5 L (95.0-98.0) % FiO2 30.0 % Pressure Support 10 CPAP 5 POC Glucose (mg/dL) 178 H (65-110) mg/dL 11/20/16 11/20/16 11/20/16 Range/Units 23:36 17:49 11:35 WBC (4.8-10.8) K/uL RBC (3.80-5.20) Mil/uL Hgb (11.0-16.0) g/dL Hct (34.0-47.0) % MCV (81.0-99.0) fL MCH (27.0-31.0) pg MCHC (33.0-37.0) g/dL RDW (11.5-14.5) % Plt Count (130-400) K/uL MPV (7.2-11.7) fL Neut % (Auto) (50.0-75.0) % Lymph % (Auto) (20.0-40.0) % Maury % (Auto) (0.0-10.0) % Eos % (Auto) (0.0-4.0) % Baso % (Auto) (0.0-2.0) % Neut # (1.8-7.0) K/uL Lymph # (1.0-4.3) K/uL Maury # (0.0-0.8) K/uL Eos # (0.0-0.7) K/uL Baso # (0.0-0.2) K/uL Puncture Site pCO2 (35-45) mm/Hg pO2 (80-100) mm/Hg HCO3 (21-28) mmol/L ABG pH (7.35-7.45) ABG Total CO2 (22-28) mmol/L ABG O2 Saturation (95-98) % ABG Base Excess (-2.0-3.0) mmol/L ABG Hemoglobin (11.7-17.4) g/dL ABG Carboxyhemoglobin (0.5-1.5) % POC ABG HHb (Measured) (0.0-5.0) % ABG Methemoglobin (0.0-3.0) % Chaz Test A-a O2 Difference mm/Hg Respiratory Index Hgb O2 Saturation (95.0-98.0) % FiO2 % Pressure Support CPAP POC Glucose (mg/dL) 231 H 234 H 181 H (65-110) mg/dL Laboratory Results - last 24 hr 11/20/16 11/20/16 11/20/16 11:35 17:49 23:36 WBC RBC Hgb Hct MCV MCH MCHC RDW Plt Count MPV Neut % (Auto) Lymph % (Auto) Maury % (Auto) Eos % (Auto) Baso % (Auto) Neut # Lymph # Maury # Eos # Baso # Puncture Site pCO2 pO2 HCO3 ABG pH ABG Total CO2 ABG O2 Saturation ABG Base Excess ABG Hemoglobin ABG Carboxyhemoglobin POC ABG HHb (Measured) ABG Methemoglobin Chaz Test A-a O2 Difference Respiratory Index Hgb O2 Saturation FiO2 Pressure Support CPAP POC Glucose (mg/dL) 181 H 234 H 231 H 11/21/16 11/21/16 11/21/16 05:00 05:21 06:45 WBC 9.8 RBC 3.60 L Hgb 10.4 L Hct 32.8 L MCV 91.1 MCH 28.8 MCHC 31.6 L RDW 14.9 H Plt Count 205 MPV 9.5 Neut % (Auto) 80.8 H Lymph % (Auto) 9.6 L Maury % (Auto) 8.9 Eos % (Auto) 0.2 Baso % (Auto) 0.5 Neut # 7.9 H Lymph # 0.9 L Maury # 0.9 H Eos # 0.0 Baso # 0.1 Puncture Site Rrad pCO2 47 H pO2 73 L HCO3 31.5 H ABG pH 7.46 H ABG Total CO2 34.8 H ABG O2 Saturation 98.0 ABG Base Excess 8.5 H ABG Hemoglobin 9.9 L ABG Carboxyhemoglobin 2.4 H POC ABG HHb (Measured) 1.9 ABG Methemoglobin 1.2 Chaz Test Pos A-a O2 Difference 82.0 Respiratory Index 1.1 Hgb O2 Saturation 94.5 L FiO2 30.0 Pressure Support 10 CPAP 5 POC Glucose (mg/dL) 178 H Fingerstick Blood Sugar Results: 178 Review of Systems - Review of Systems Systems not reviewed;Unavailable: Intubated Assessment/Plan - Assessment and Plan (Free Text) Assessment: 61 F with history of hyperthyroidism, admitted to ED for hyperglycemia, altered mental status, and a-fib. Patient was admitted to ICU for treatment of DKA and patient continues to be monitored in the ICU. Patient's ventilatory status improved tolerating CPAP trial. Patient is s/p therapeutic bronchoscopy 11/15, , 11/18. Pt tolerated well. On CPAP trials to plan for extubation. Plan: Neuro: Neurochecks Q4 GCS 10T (E4 VT M6) Sedation: Propofol 100 cc @ 3.493 cc/hr IV Q24H (5 mcg/kg/min) Cardiovascular: Imagin/26 CT soft tissue neck: no significant evidence of lymphadenopathy, moderately enlarged ET and NG tube. 11/13 CT Lower extremity: soft tissue swelling/stranding suggestive of cellulitis. No evidence of abscess. 11/13 CTA of chest/abdomen/pelvis: suspicious mass lesion at right kidney midpole 4.2 x 4.5. Moderate enlargement of bilateral adrenal gland with right > left. Low attenuation nodules. increase in size of left pleural effusion since pervious study. complete collapse of left lower lobe. 2.8 cm low-attenuation lesion at anterior upper portion of spleen. foci of cortical irregularity and lucency in spine and right ribs. cardiomegaly 11/10 Duplex scan lower extremity artery: no evidence of deep or superficial vein thrombosis of Right and Left lower extremity. 11/09 Echocardiogram: LVEF 65%, elevated diastolic filling pressures. 11/04 EKG: atrial fibrillation with RVR, PVCs @ 153 bpm 11/17 CT Surgery consult - Dr. Scooter Avalos - no surgical intervention needed at time time Metoprolol 2.5 mg IVP Q6H [facility] Acetazolamide 500 mg IV Q8 [facility] Amiodarone HCl 200 mg PO TID Diltiazem 60 mg PO Q6 [facility] Pulmonary: CPAP trial today CXR 11/21: Moderate to severe venous congestion with prominent bibasilar airspace opacities and moderate bilateral pleural effusions Solumedrol 10 mg IVP daily s/p therapeutic bronch 11/15, 11/16, 11/18 - improved secretions. Lasix 40mg IV once Endo: HHS Diabetes - uncontrolled History of Hyperthyroidism T4 2.59 TSH <0.02 Methimazole 10 mg PO BID [facility] Novolin R 0 unit SC Q6H [facility] Lantus 22 units 0600 and 2000 [facility] Accucheck Q6 ACHS Hyperglycemia- steroids component as well tho patient needs better control GI: Fluid differential Pathologist review - few sheets of reactive mesothelial cells. scattered lymphocytes, macrophages, and RBCs negative for malignant cells. mildly inflamed pleural fluid negative for malignant cells. Daily CMP Senna/Docusate 50 mg - 8.6 mg 1 tab PO BID Vitamin A & D oint UD foilpak 1 ea TOP BID [facility] : Monitor I/Os Maintain Hemphill care Nephro: BUN/Cr: some improvement noted. Today 26/0.4 Hypernatremia resolved Hypophosphatemia - repleted Monitor I/Os Daily CMP Heme: H&H stable Daily CBC ID: WBC stable MRSA bronchial culture Daily CBC Nystatin TOP TID [facility] Acetaminophen 650 mg NM Q6 PRN temperature >101 F Vancomycin 1500 mg, 500 cc @ 250 cc/hr IVPB Q12H Imipenem/Cilastatin 1 Gm 250 cc @ 250 cc/hr IVPB Q8H [facility] Vanco trough 11/16 16.1 Prophylaxis: DVT: SCDs, Lovenox 110 mg SC Q12 [facility] GI: Protonix 40 mg IVP daily [facility]
[2016-11-21 08:31] LABS: METAMYELOCYTE 4 % (0-0); NEUTROPHIL 83 % (50-75); TOTAL CELLS COUNTED 100
--- NOTE | 2016-11-21 08:44 | RAD ---
HISTORY: intubated COMPARISON: 11/20/2016 FINDINGS: LUNGS: Lines and tubes stable position. Moderate to severe venous congestion with prominent bibasilar airspace opacities and moderate bilateral pleural effusions. PLEURA: As above. CARDIOVASCULAR: Cardiomegaly. OSSEOUS STRUCTURES: Degenerative changes in the spine and shoulders. VISUALIZED UPPER ABDOMEN: Normal. OTHER FINDINGS: None. IMPRESSION: No significant interval change.
[2016-11-21] MEDS: Vitamins A & D Oint UD Foilpak TOP SCH ×2 (09:23→17:34)
[2016-11-21] MEDS: Vancomycin 1 gm/NS 200 ml 200 ML IVPB SCH ×2 (09:23→22:16)
[2016-11-21] MEDS: Metoprolol Succinate 12.5 mg XL PO SCH (09:23)
[2016-11-21] MEDS: Pantoprazole 40 mg EC Tab PO SCH (09:24)
[2016-11-21] MEDS: Nystatin 100,000 Units/gm Cream(15 gm) TOP SCH ×3 (09:27→17:18)
[2016-11-21 09:33] LABS: CHLORIDE 107 mmol/L (98-107)
[2016-11-21 09:34] LABS: POTASSIUM 3.6 mmol/L (3.6-5.2); SODIUM 148 mmol/L (132-148)
[2016-11-21] MEDS: MethylPREDNISolone 40 mg Vial IVP SCH (09:34)
[2016-11-21 09:36] LABS: ALB/GLOB RATIO 0.8 (1.0-2.1); ALKALINE PHOSPHATASE 67 U/L (38-126); ALT/SGPT 20 U/L (9-52); AST/SGOT 27 U/L (14-36); BILIRUBIN,TOTAL 0.6 mg/dL (0.2-1.3); BLOOD UREA NITROGEN 26 mg/dL (7-17); CARBON DIOXIDE 31 mmol/L (22-30); GFR AFRICAN-AMERICAN > 60; TOTAL PROTEIN 5.4 g/dL (6.3-8.3)
[2016-11-21 09:37] LABS: CALCIUM 8.6 mg/dl (8.6-10.4); GLUCOSE,RANDOM 154 mg/dL (65-105); MAGNESIUM 2.2 mg/dL (1.6-2.3); PHOSPHOROUS 2.2 mg/dL (2.5-4.5)
--- NOTE | 2016-11-21 10:21 | CP.PCM.PN ---
Subjective - Date & Time of Evaluation Date of Evaluation: 11/21/16 Time of Evaluation: 07:30 - Subjective Subjective: Patient seen and examined in the intensive care unit. Remains intubated on ventilatory support and appears more lethargic today Tolerated CPAP yesterday Afebrile Objective - Vital Signs/Intake and Output Vital Signs (last 24 hours): Temp Pulse Resp BP Pulse Ox 98.4 F 103 H 22 104/80 96 11/21/16 08:00 11/21/16 09:00 11/21/16 09:00 11/21/16 09:00 11/21/16 09:00 Intake and Output: 11/21/16 11/21/16 06:59 18:59 Intake Total 1850 110 Output Total 890 Balance 960 110 - Medications Medications: Current Medications Acetaminophen (Tylenol 650mg/20.3ml Solution Ud) 650 mg GT Q6 PRN PRN Reason: Fever >100.4 F Last Admin: 11/16/16 08:59 Dose: 650 mg Amiodarone HCl (Cordarone) 200 mg PO Q8H [facility] Last Admin: 11/21/16 09:23 Dose: 200 mg Diltiazem HCl (Cardizem) 60 mg PO Q6 [facility] Last Admin: 11/21/16 05:04 Dose: 60 mg Propofol (Diprivan) 100 mls @ 3.493 mls/hr IV .Q24H PRN; Protocol; 5 MCG/KG/MIN PRN Reason: TITRATE PER MD ORDER Last Titration: 11/21/16 09:28 Dose: 10 mcg/kg/min Imipenem/Cilastatin Sodium 1, (000 mg/ Sodium Chloride) 250 mls @ 250 mls/hr IVPB Q8H [facility] Last Admin: 11/21/16 04:11 Dose: 250 mls/hr Vancomycin/Sodium Chloride (Vancocin) 200 mls @ 166.6 mls/hr IVPB Q12H [facility] Last Admin: 11/21/16 09:23 Dose: 166.6 mls/hr Insulin Glargine (Lantus) 22 unit SC 0800,1999 [facility] Last Admin: 11/18/16 21:39 Dose: 22 u Insulin Human Regular (Novolin R) 0 unit SC Q6 [facility] PRN Reason: Protocol Last Admin: 11/21/16 05:04 Dose: 2 unit Methimazole (Tapazole) 10 mg PO TID [facility] Last Admin: 11/21/16 09:34 Dose: 10 mg Methylprednisolone (Solu-Medrol) 10 mg IVP DAILY [facility] Last Admin: 11/21/16 09:34 Dose: 10 mg Metoprolol Succinate (Toprol Xl) 12.5 mg PO DAILY [facility] Last Admin: 11/21/16 09:23 Dose: 12.5 mg Nystatin (Mycostatin Cream) 0 ea TOP TID [facility] Last Admin: 11/21/16 09:27 Dose: 1 applic Pantoprazole Sodium (Protonix Ec Tab) 40 mg PO DAILY [facility] Last Admin: 11/21/16 09:24 Dose: 40 mg Vitamin A (Vitamin A & D Oint Ud Foilpak) 1 ea TOP BID [facility] Last Admin: 11/21/16 09:23 Dose: 1 ea - Labs Labs: 11/21/16 06:45 11/21/16 06:45 PT 12.0 SECONDS (9.7-12.2) 11/13/16 04:57 INR 1.1 11/13/16 04:57 APTT 38 SECONDS (21-34) H D 11/13/16 04:57 - Head Exam Head Exam: ATRAUMATIC, NORMOCEPHALIC - ENT Exam ENT Exam: Mucous Membranes Moist - Neck Exam Neck Exam: Normal Inspection - Respiratory Exam Respiratory Exam: Decreased Breath Sounds - Cardiovascular Exam Cardiovascular Exam: Irregular Rhythm - GI/Abdominal Exam GI & Abdominal Exam: Soft, Normal Bowel Sounds Assessment and Plan (1) Respiratory failure with hypoxia Assessment & Plan: CPAP trial and extubate when patient is more awake and responsive Continue antibiotics for pneumonia Continue feeding as tolerated Status: Acute (2) Atrial fibrillation with rapid ventricular response Status: Acute
[2016-11-21] MEDS ORDERED: Potassium Phosphate 15 MMOLE in Dextrose 5% In Water 250 ML IVPB ONE (16:00)
--- NOTE | 2016-11-21 23:59 | CP.PCM.PN ---
Subjective - Date & Time of Evaluation Date of Evaluation: 11/21/16 Time of Evaluation: 10:07 - Subjective Subjective: Pt seen and evalauted, is improving, MRSA postive in bonchial washings, is on antibiotics , In ICU, Patient remains intubated on ventilatory support and appears more lethargic today Tolerated CPAP yesterday Afebrile Objective - Vital Signs/Intake and Output Vital Signs (last 24 hours): Temp Pulse Resp BP Pulse Ox 99.8 F H 89 14 98/48 L 96 11/21/16 20:00 11/21/16 23:01 11/21/16 23:01 11/21/16 23:01 11/21/16 23:01 Intake and Output: 11/21/16 11/22/16 18:59 06:59 Intake Total 1337.5 210.5 Output Total 4190 50 Balance -2852.5 160.5 - Medications Medications: Current Medications Acetaminophen (Tylenol 650mg/20.3ml Solution Ud) 650 mg GT Q6 PRN PRN Reason: Fever >100.4 F Last Admin: 11/16/16 08:59 Dose: 650 mg Amiodarone HCl (Cordarone) 200 mg PO Q8H [facility] Last Admin: 11/21/16 17:20 Dose: 200 mg Diltiazem HCl (Cardizem) 60 mg PO Q6 [facility] Last Admin: 11/21/16 17:20 Dose: 60 mg Propofol (Diprivan) 100 mls @ 3.493 mls/hr IV .Q24H PRN; Protocol; 5 MCG/KG/MIN PRN Reason: TITRATE PER MD ORDER Last Titration: 11/21/16 15:44 Dose: 15 mcg/kg/min Imipenem/Cilastatin Sodium 1, (000 mg/ Sodium Chloride) 250 mls @ 250 mls/hr IVPB Q8H [facility] Last Admin: 11/21/16 21:16 Dose: 250 mls/hr Vancomycin/Sodium Chloride (Vancocin) 200 mls @ 166.6 mls/hr IVPB Q12H [facility] Last Admin: 11/21/16 22:16 Dose: 166.6 mls/hr Insulin Glargine (Lantus) 22 unit SC 0800,2000 [facility] Last Admin: 11/18/16 21:39 Dose: 22 u Insulin Human Regular (Novolin R) 0 unit SC Q6 [facility] PRN Reason: Protocol Last Admin: 11/21/16 17:25 Dose: 6 unit Methimazole (Tapazole) 10 mg PO TID [facility] Last Admin: 11/21/16 17:18 Dose: 10 mg Methylprednisolone (Solu-Medrol) 10 mg IVP DAILY [facility] Last Admin: 11/21/16 09:34 Dose: 10 mg Metoprolol Succinate (Toprol Xl) 12.5 mg PO DAILY [facility] Last Admin: 11/21/16 09:23 Dose: 12.5 mg Nystatin (Mycostatin Cream) 0 ea TOP TID [facility] Last Admin: 11/21/16 17:18 Dose: 1 applic Pantoprazole Sodium (Protonix Ec Tab) 40 mg PO DAILY [facility] Last Admin: 11/21/16 09:24 Dose: 40 mg Vitamin A (Vitamin A & D Oint Ud Foilpak) 1 ea TOP BID [facility] Last Admin: 11/21/16 17:34 Dose: 1 ea - Labs Labs: 11/21/16 06:45 11/21/16 06:45 PT 12.0 SECONDS (9.7-12.2) 11/13/16 04:57 INR 1.1 11/13/16 04:57 APTT 38 SECONDS (21-34) H D 11/13/16 04:57 - Constitutional Appears: No Acute Distress - Head Exam Head Exam: ATRAUMATIC, NORMAL INSPECTION, NORMOCEPHALIC - Eye Exam Eye Exam: EOMI, Normal appearance, PERRL Pupil Exam: NORMAL ACCOMODATION, PERRL - Respiratory Exam Respiratory Exam: Clear to Ausculation Bilateral, NORMAL BREATHING PATTERN - Cardiovascular Exam Cardiovascular Exam: REGULAR RHYTHM, +S1, +S2. absent: Murmur - GI/Abdominal Exam GI & Abdominal Exam: Soft, Normal Bowel Sounds. absent: Tenderness Assessment and Plan (1) Diabetes Status: Chronic (2) HTN (hypertension) Status: Chronic (3) Bilateral lower leg cellulitis Status: Deleted (4) DKA (diabetic ketoacidoses) Status: Resolved (5) Atrial fibrillation with rapid ventricular response Status: Acute (6) CHF (congestive heart failure) Status: Acute (7) Pleural effusion Status: Acute
[2016-11-22] MEDS: (Novolin R) Insulin Human Regular 100 units/ml vial SC SCH ×4 (00:43→17:16)
[2016-11-22 04:45] LABS: ABG ALLEN TEST POS; ABG MECHANICAL RATE 14; ARTERIAL BLOOD HGB O2 SAT 95.7 % (95.0-98.0); ATERIAL BLOOD GAS PEEP 5; CARBOXYHEMOGLOBIN 1.9 % (0.5-1.5); DRAW SITE LR; HHB 1.2 % (0.0-5.0); METHEMOGLOBIN 1.2 % (0.0-3.0)
[2016-11-22 06:48] LABS: BASO % 0.2 % (0.0-2.0); EOS # 0.1 K/uL (0.0-0.7); EOS % 1.2 % (0.0-4.0); HEMATOCRIT 30.2 % (34.0-47.0); LYMPH # 1.3 K/uL (1.0-4.3); LYMPH % 19.1 % (20.0-40.0); MEAN CELL VOLUME 90.5 fL (81.0-99.0); MEAN CORPUSCULAR HEMOGLOBIN 28.4 pg (27.0-31.0); MEAN CORPUSCULAR HGB CONC 31.4 g/dL (33.0-37.0); MEAN PLATELET VOLUME 9.2 fL (7.2-11.7); MONO # 0.6 K/uL (0.0-0.8); MONO % 8.8 % (0.0-10.0); NRBC % 0.1 % (0.0-2.0); RED CELL DISTRIBUTION WIDTH 15.1 % (11.5-14.5); WHITE BLOOD COUNT 6.9 K/uL (4.8-10.8)
[2016-11-22 06:53] LABS: CHLORIDE 103 mmol/L (98-107); SODIUM 144 mmol/L (132-148)
[2016-11-22 06:54] LABS: POTASSIUM 3.4 mmol/L (3.6-5.2)
[2016-11-22 06:56] LABS: ALB/GLOB RATIO 0.8 (1.0-2.1); ALKALINE PHOSPHATASE 51 U/L (38-126); ALT/SGPT 23 U/L (9-52); AST/SGOT 14 U/L (14-36); BILIRUBIN,TOTAL 0.6 mg/dL (0.2-1.3); BLOOD UREA NITROGEN 30 mg/dL (7-17); CARBON DIOXIDE 34 mmol/L (22-30); GFR AFRICAN-AMERICAN > 60; GLUCOSE,RANDOM 210 mg/dL (65-105); PHOSPHOROUS 2.2 mg/dL (2.5-4.5); TOTAL PROTEIN 4.6 g/dL (6.3-8.3)
[2016-11-22 06:57] LABS: MAGNESIUM 2.2 mg/dL (1.6-2.3)
[2016-11-22] MEDS ORDERED: Potassium Phosphate 15 MMOLE in Dextrose 5% In Water 250 ML IVPB ONE (08:50)
--- NOTE | 2016-11-22 08:50 | CP.CCUPN ---
<Eloina Allen - Last Filed: 11/22/16 12:25> CCU Subjective - Physician Review Subjective (Free Text): 11/08/16 13:06 Pt seen in mild distress requiring intubation. Two large pieces of dried mucus were extracted from the patient's throat obstructing vocal cords. Patient intubated. TLC line was also placed to ensure better IV access. 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 An ROS could not be obtained at this time because patient is intubated and sedated. 11/09/16 13:15 Patient seen at beside intubated and sedated. GCS 8T (FiO2 60 PEEP 5 VT 500 RR 16). No acute events overnight per nursing. A fib is rate controlled. Patient is stable. New vent settings after rounds PRVC (FiO2 60, PEEP 5, RR 12 VT 500). ROS couldn't be obtained because patient is intubated and sedated. 11/10/16 16:50 Pt seen and examined in no acute distress. Patient spiked a fever during overnight shift which initially responded to Tylenol and later returned during the morning shift. Patient administered tylenol and cooling blankets. Patient underwent thoracentesis for pleural effusion. Tolerated procedure well. Patient is rate controlled. ROS couldn't be obtained because patient is intubated and sedated. 11/11/16 8:34 Pt seen and examined in no acute distress. Patient seen at beside intubated and sedated. (FiO2 50 PEEP 5 RR 14 VT 500). Patient is awake, but does not follow commands. Patient has low grade fever this morning (T max 100.2, T 99.0-100.2). A fib is rate controlled. Patient is stable. ROS couldn't be obtained because patient was intubated and sedated at the time of evaluation 11/14/16 15:35 Patient seen at bedside in no acute distress. Patient intubated with vent settings of FiO2 50%, RR 14, PEEP 5, TV 500% and is saturating well at 100%. GCS 10T (E4 VT M6). Patient's last dose of propofol was given 11/12. Patient opens eyes spontaneously and moves extremities on her own. CPAP trial was done after morning rounds. Patient was tachycardic prior to morning rounds, but is currently rate controlled. Patient is stable. Patient spiked a fever overnight and is currently having a low grade fever (T max 101.1, T current 99.3). ROS could not be obtained because patient is intubated at time of evaluation. Over the weekend, NGT removed and replaced with OGT with Afrin spray in nose bilaterally. Right sided nasal packing inserted where NGT had been. 11/15/16 15:39 Patient seen at bedside in no acute distress. Patient intubated with vent settings of FiO2 50%, RR 14, PEEP 5, TV 500% and is saturating well at 100%. GCS 10T (E4 VT M6). Patient's last dose of propofol was given 11/12. Patient opens eyes spontaneously and moves extremities on her own. Patient is stable but still lethargic. Patient spiked a fever overnight and has normal temperature now (T max 101, T current 98.4). ROS could not be obtained because patient is intubated and lethargic at time of evaluation. 11/16/16 13:09 Patient seen at bedside in no acute distress. Patient intubated with vent settings of FiO2 50%, RR 14, PEEP 5, TV 500% and is saturating well at 100%. Patient is stable but still lethargic. Patient spiked a fever overnight and has normal temperature now (T max 101.4, T current 101.3). ROS could not be obtained because patient is intubated at time of evaluation. 11/18/16 20:33 Pt seen and examined in no acute distress. Patient intubated but tolerating CPAP trial. Patient opens eyes spontaneously and moves extremities on her own. Patient is stable but moderately lethargic. Patient afebrile overnight. ROS could not be obtained because patient is intubated at time of evaluation. 11/21/16 14:44 Pt seen and examined in no acute distress. No significant events overnight per nursing. Patient alert and restless currently though intermittently somnolent. Patient gestured that she would like the tube out. At this time, patient not able to comply to an ROS. 11/22/16 12:17 Pt seen and examined in no acute distress. No significant events overnight per nursing. Patient less alert today . At this time, patient not able to comply to an ROS. CCU Objective - Vital Signs / Intake & Output Vital Signs (Last 4 hours): Vital Signs Pulse Resp BP Pulse Ox 11/22/16 08:01 80 14 96 11/22/16 07:01 127/58 L 11/22/16 07:00 88 14 95 11/22/16 06:01 82 14 117/63 96 11/22/16 06:00 81 14 96 11/22/16 05:01 97 H 15 109/57 L 95 11/22/16 05:00 83 14 96 11/22/16 04:56 82 14 96 Intake and Output (Last 8hrs): Intake & Output 11/21/16 11/22/16 11/22/16 22:59 06:59 14:59 Intake Total 1521.5 1343.5 58.4 Output Total 4520 640 80 Balance -2998.5 703.5 -21.6 Weight 242 lb 8.136 oz Intake: Intake, IV Amount 721.5 323.5 8.4 Right Distal Port 637.5 250 Right Medial Port 84.0 73.5 8.4 Internal Jugular Tube Feeding 400 400 50 Other 400 620 Output: Urine 4520 640 80 Urethral (Hemphill) 4520 640 80 - Physical Exam Head: Positive for: Atraumatic, Normocephalic Pupils: Positive for: PERRL. Negative for: Sluggish, Non-Reactive Extroacular Muscles: Positive for: EOMI. Negative for: Gaze Palsy Conjunctiva: Positive for: Normal. Negative for: Injected, Icteric Mouth: Positive for: Moist Mucous Membranes Neck: Positive for: Normal Range of Motion, Trachea Midline. Negative for: Meningeal Signs, MIDLINE TENDERNESS, Paraspinal Tenderness, JVD, Lymphadenopathy , Bruit, Other Respiratory/Chest: Positive for: Wheezes, Decreased Breath Sounds, Other ( intubated). Negative for: Rales Cardiovascular: Positive for: Irregular Rhythm, Peripheal Pulses Present, Tachycardic. Negative for: Murmurs, Normal S1, S2 Abdomen: Negative for: Tenderness, Distention Upper Extremity: Positive for: Normal Inspection Lower Extremity: Positive for: Edema Neurological: Negative for: Speech Normal Psychiatric: Negative for: Alert, Oriented x 3 - Medications Active Medications: Active Medications Generic Name Dose Route Start Last Admin Trade Name Freq PRN Reason Stop Dose Admin Acetaminophen 650 mg 11/14/16 20:10 11/16/16 08:59 Tylenol 650mg/20.3ml Solution Ud GT 650 mg Q6 PRN Administration Fever >100.4 F Amiodarone HCl 200 mg 11/15/16 18:00 11/22/16 01:11 Cordarone PO 200 mg Q8H CRISTOBAL Administration Diltiazem HCl 60 mg 11/15/16 12:00 11/22/16 06:22 Cardizem PO 60 mg Q6 CRISTOBAL Administration Propofol 100 mls @ 3.493 mls/hr 11/08/16 08:29 11/22/16 04:15 Diprivan IV 8.383 mls/hr .Q24H PRN Administration TITRATE PER MD ORDER Protocol 5 MCG/KG/MIN Imipenem/Cilastatin Sodium 1, 250 mls @ 250 mls/hr 11/15/16 13:00 11/22/16 04: 14 000 mg/ Sodium Chloride IVPB 250 mls/hr Q8H CRISTOBAL Administration Vancomycin/Sodium Chloride 200 mls @ 166.6 mls/hr 11/19/16 10:00 11/21/16 22:16 Vancocin IVPB 166.6 mls/hr Q12H CRISTOBAL Administration Insulin Glargine 22 unit 11/17/16 20:17 11/18/16 21:39 Lantus SC 22 u 0800,2000 CRISTOBAL Administration Insulin Human Regular 0 unit 11/17/16 08:38 11/22/16 06:22 Novolin R SC 4 unit Q6 CRISTOBAL Administration Protocol Methimazole 10 mg 11/18/16 10:00 11/21/16 17:18 Tapazole PO 10 mg TID CRISTOBAL Administration Methylprednisolone 10 mg 11/17/16 10:00 11/21/16 09:34 Solu-Medrol IVP 10 mg DAILY CRISTOBAL Administration Metoprolol Succinate 12.5 mg 11/16/16 10:30 11/21/16 09:23 Toprol Xl PO 12.5 mg DAILY CRISTOBAL Administration Nystatin 0 ea 11/04/16 18:00 11/21/16 17:18 Mycostatin Cream TOP 1 applic TID CRISTOBAL Administration Pantoprazole Sodium 40 mg 11/21/16 10:00 11/21/16 09:24 Protonix Ec Tab PO 40 mg DAILY CRISTOBAL Administration Vitamin A 1 ea 11/09/16 18:00 11/21/16 17:34 Vitamin A & D Oint Ud Foilpak TOP 1 ea BID CRISTOBAL Administration - Patient Studies Lab Studies: Lab Studies 11/22/16 11/22/16 11/22/16 Range/Units 06:38 06:36 05:59 WBC 6.9 (4.8-10.8) K/uL RBC 3.33 L (3.80-5.20) Mil/uL Hgb 9.5 L (11.0-16.0) g/dL Hct 30.2 L (34.0-47.0) % MCV 90.5 (81.0-99.0) fL MCH 28.4 (27.0-31.0) pg MCHC 31.4 L (33.0-37.0) g/dL RDW 15.1 H (11.5-14.5) % Plt Count 181 (130-400) K/uL MPV 9.2 (7.2-11.7) fL Neut % (Auto) 70.7 (50.0-75.0) % Lymph % (Auto) 19.1 L (20.0-40.0) % Upton % (Auto) 8.8 (0.0-10.0) % Eos % (Auto) 1.2 (0.0-4.0) % Baso % (Auto) 0.2 (0.0-2.0) % Neut # 4.9 (1.8-7.0) K/uL Lymph # 1.3 (1.0-4.3) K/uL Upton # 0.6 (0.0-0.8) K/uL Eos # 0.1 (0.0-0.7) K/uL Baso # 0.0 (0.0-0.2) K/uL Puncture Site pCO2 (35-45) mm/Hg pO2 (80-100) mm/Hg HCO3 (21-28) mmol/L ABG pH (7.35-7.45) ABG Total CO2 (22-28) mmol/L ABG O2 Saturation (95-98) % ABG Base Excess (-2.0-3.0) mmol/L ABG Hemoglobin (11.7-17.4) g/dL ABG Carboxyhemoglobin (0.5-1.5) % POC ABG HHb (Measured) (0.0-5.0) % ABG Methemoglobin (0.0-3.0) % Chaz Test A-a O2 Difference mm/Hg Respiratory Index Hgb O2 Saturation (95.0-98.0) % Mechanical Rate FiO2 % Tidal Volume PEEP Sodium 144 (132-148) mmol/L Potassium 3.4 L (3.6-5.2) mmol/L Chloride 103 (98-107) mmol/L Carbon Dioxide 34 H (22-30) mmol/L Anion Gap 10 (10-20) BUN 30 H (7-17) mg/dL Creatinine 0.5 L (0.7-1.2) MG/DL Est GFR ( Amer) > 60 Est GFR (Non-Af Amer) > 60 POC Glucose (mg/dL) 247 H (65-110) mg/dL Random Glucose 210 H (65-105) mg/dL Calcium 8.0 L (8.6-10.4) mg/dl Phosphorus 2.2 L (2.5-4.5) mg/dL Magnesium 2.2 (1.6-2.3) mg/dL Total Bilirubin 0.6 (0.2-1.3) mg/dL AST 14 D (14-36) U/L ALT 23 (9-52) U/L Alkaline Phosphatase 51 (38-126) U/L Total Protein 4.6 L (6.3-8.3) g/dL Albumin 2.1 L (3.5-5.0) g/dL Globulin 2.5 (2.2-3.9) gm/dL Albumin/Globulin Ratio 0.8 L (1.0-2.1) 11/22/16 11/21/16 11/21/16 Range/Units 04:25 23:44 17:23 WBC (4.8-10.8) K/uL RBC (3.80-5.20) Mil/uL Hgb (11.0-16.0) g/dL Hct (34.0-47.0) % MCV (81.0-99.0) fL MCH (27.0-31.0) pg MCHC (33.0-37.0) g/dL RDW (11.5-14.5) % Plt Count (130-400) K/uL MPV (7.2-11.7) fL Neut % (Auto) (50.0-75.0) % Lymph % (Auto) (20.0-40.0) % Upton % (Auto) (0.0-10.0) % Eos % (Auto) (0.0-4.0) % Baso % (Auto) (0.0-2.0) % Neut # (1.8-7.0) K/uL Lymph # (1.0-4.3) K/uL Upton # (0.0-0.8) K/uL Eos # (0.0-0.7) K/uL Baso # (0.0-0.2) K/uL Puncture Site Lr pCO2 39 (35-45) mm/Hg pO2 88 (80-100) mm/Hg HCO3 30.8 H (21-28) mmol/L ABG pH 7.51 H (7.35-7.45) ABG Total CO2 32.3 H (22-28) mmol/L ABG O2 Saturation 98.8 H (95-98) % ABG Base Excess 7.5 H (-2.0-3.0) mmol/L ABG Hemoglobin 9.3 L (11.7-17.4) g/dL ABG Carboxyhemoglobin 1.9 H (0.5-1.5) % POC ABG HHb (Measured) 1.2 (0.0-5.0) % ABG Methemoglobin 1.2 (0.0-3.0) % Chaz Test Pos A-a O2 Difference 77.0 mm/Hg Respiratory Index 0.9 Hgb O2 Saturation 95.7 (95.0-98.0) % Mechanical Rate 14 FiO2 30.0 % Tidal Volume 500 PEEP 5 Sodium (132-148) mmol/L Potassium (3.6-5.2) mmol/L Chloride (98-107) mmol/L Carbon Dioxide (22-30) mmol/L Anion Gap (10-20) BUN (7-17) mg/dL Creatinine (0.7-1.2) MG/DL Est GFR ( Amer) Est GFR (Non-Af Amer) POC Glucose (mg/dL) 277 H 278 H (65-110) mg/dL Random Glucose (65-105) mg/dL Calcium (8.6-10.4) mg/dl Phosphorus (2.5-4.5) mg/dL Magnesium (1.6-2.3) mg/dL Total Bilirubin (0.2-1.3) mg/dL AST (14-36) U/L ALT (9-52) U/L Alkaline Phosphatase (38-126) U/L Total Protein (6.3-8.3) g/dL Albumin (3.5-5.0) g/dL Globulin (2.2-3.9) gm/dL Albumin/Globulin Ratio (1.0-2.1) 11/21/16 11/21/16 Range/Units 11:33 06:45 WBC (4.8-10.8) K/uL RBC (3.80-5.20) Mil/uL Hgb (11.0-16.0) g/dL Hct (34.0-47.0) % MCV (81.0-99.0) fL MCH (27.0-31.0) pg MCHC (33.0-37.0) g/dL RDW (11.5-14.5) % Plt Count (130-400) K/uL MPV (7.2-11.7) fL Neut % (Auto) (50.0-75.0) % Lymph % (Auto) (20.0-40.0) % Upton % (Auto) (0.0-10.0) % Eos % (Auto) (0.0-4.0) % Baso % (Auto) (0.0-2.0) % Neut # (1.8-7.0) K/uL Lymph # (1.0-4.3) K/uL Upton # (0.0-0.8) K/uL Eos # (0.0-0.7) K/uL Baso # (0.0-0.2) K/uL Puncture Site pCO2 (35-45) mm/Hg pO2 (80-100) mm/Hg HCO3 (21-28) mmol/L ABG pH (7.35-7.45) ABG Total CO2 (22-28) mmol/L ABG O2 Saturation (95-98) % ABG Base Excess (-2.0-3.0) mmol/L ABG Hemoglobin (11.7-17.4) g/dL ABG Carboxyhemoglobin (0.5-1.5) % POC ABG HHb (Measured) (0.0-5.0) % ABG Methemoglobin (0.0-3.0) % Chaz Test A-a O2 Difference mm/Hg Respiratory Index Hgb O2 Saturation (95.0-98.0) % Mechanical Rate FiO2 % Tidal Volume PEEP Sodium 148 (132-148) mmol/L Potassium 3.6 (3.6-5.2) mmol/L Chloride 107 (98-107) mmol/L Carbon Dioxide 31 H (22-30) mmol/L Anion Gap 14 (10-20) BUN 26 H (7-17) mg/dL Creatinine 0.4 L (0.7-1.2) MG/DL Est GFR ( Amer) > 60 Est GFR (Non-Af Amer) > 60 POC Glucose (mg/dL) 277 H (65-110) mg/dL Random Glucose 154 H (65-105) mg/dL Calcium 8.6 (8.6-10.4) mg/dl Phosphorus 2.2 L (2.5-4.5) mg/dL Magnesium 2.2 (1.6-2.3) mg/dL Total Bilirubin 0.6 (0.2-1.3) mg/dL AST 27 (14-36) U/L ALT 20 (9-52) U/L Alkaline Phosphatase 67 (38-126) U/L Total Protein 5.4 L (6.3-8.3) g/dL Albumin 2.4 L (3.5-5.0) g/dL Globulin 3.0 (2.2-3.9) gm/dL Albumin/Globulin Ratio 0.8 L (1.0-2.1) Laboratory Results - last 24 hr 11/21/16 11/21/16 11/21/16 06:45 11:33 17:23 WBC RBC Hgb Hct MCV MCH MCHC RDW Plt Count MPV Neut % (Auto) Lymph % (Auto) Upton % (Auto) Eos % (Auto) Baso % (Auto) Neut # Lymph # Upton # Eos # Baso # Puncture Site pCO2 pO2 HCO3 ABG pH ABG Total CO2 ABG O2 Saturation ABG Base Excess ABG Hemoglobin ABG Carboxyhemoglobin POC ABG HHb (Measured) ABG Methemoglobin Chaz Test A-a O2 Difference Respiratory Index Hgb O2 Saturation Mechanical Rate FiO2 Tidal Volume PEEP Sodium 148 Potassium 3.6 Chloride 107 Carbon Dioxide 31 H Anion Gap 14 BUN 26 H Creatinine 0.4 L Est GFR ( Amer) > 60 Est GFR (Non-Af Amer) > 60 POC Glucose (mg/dL) 277 H 278 H Random Glucose 154 H Calcium 8.6 Phosphorus 2.2 L Magnesium 2.2 Total Bilirubin 0.6 AST 27 ALT 20 Alkaline Phosphatase 67 Total Protein 5.4 L Albumin 2.4 L Globulin 3.0 Albumin/Globulin Ratio 0.8 L 11/21/16 11/22/16 11/22/16 23:44 04:25 05:59 WBC RBC Hgb Hct MCV MCH MCHC RDW Plt Count MPV Neut % (Auto) Lymph % (Auto) Upton % (Auto) Eos % (Auto) Baso % (Auto) Neut # Lymph # Upton # Eos # Baso # Puncture Site Lr pCO2 39 pO2 88 HCO3 30.8 H ABG pH 7.51 H ABG Total CO2 32.3 H ABG O2 Saturation 98.8 H ABG Base Excess 7.5 H ABG Hemoglobin 9.3 L ABG Carboxyhemoglobin 1.9 H POC ABG HHb (Measured) 1.2 ABG Methemoglobin 1.2 Chaz Test Pos A-a O2 Difference 77.0 Respiratory Index 0.9 Hgb O2 Saturation 95.7 Mechanical Rate 14 FiO2 30.0 Tidal Volume 500 PEEP 5 Sodium Potassium Chloride Carbon Dioxide Anion Gap BUN Creatinine Est GFR ( Amer) Est GFR (Non-Af Amer) POC Glucose (mg/dL) 277 H 247 H Random Glucose Calcium Phosphorus Magnesium Total Bilirubin AST ALT Alkaline Phosphatase Total Protein Albumin Globulin Albumin/Globulin Ratio 11/22/16 11/22/16 06:36 06:38 WBC 6.9 RBC 3.33 L Hgb 9.5 L Hct 30.2 L MCV 90.5 MCH 28.4 MCHC 31.4 L RDW 15.1 H Plt Count 181 MPV 9.2 Neut % (Auto) 70.7 Lymph % (Auto) 19.1 L Upton % (Auto) 8.8 Eos % (Auto) 1.2 Baso % (Auto) 0.2 Neut # 4.9 Lymph # 1.3 Upton # 0.6 Eos # 0.1 Baso # 0.0 Puncture Site pCO2 pO2 HCO3 ABG pH ABG Total CO2 ABG O2 Saturation ABG Base Excess ABG Hemoglobin ABG Carboxyhemoglobin POC ABG HHb (Measured) ABG Methemoglobin Chaz Test A-a O2 Difference Respiratory Index Hgb O2 Saturation Mechanical Rate FiO2 Tidal Volume PEEP Sodium 144 Potassium 3.4 L Chloride 103 Carbon Dioxide 34 H Anion Gap 10 BUN 30 H Creatinine 0.5 L Est GFR ( Amer) > 60 Est GFR (Non-Af Amer) > 60 POC Glucose (mg/dL) Random Glucose 210 H Calcium 8.0 L Phosphorus 2.2 L Magnesium 2.2 Total Bilirubin 0.6 AST 14 D ALT 23 Alkaline Phosphatase 51 Total Protein 4.6 L Albumin 2.1 L Globulin 2.5 Albumin/Globulin Ratio 0.8 L Fingerstick Blood Sugar Results: 247 Review of Systems - Review of Systems Systems not reviewed;Unavailable: Intubated Assessment/Plan - Assessment and Plan (Free Text) Assessment: 61 F with history of hyperthyroidism, admitted to ED for hyperglycemia, altered mental status, and a-fib. Patient was admitted to ICU for treatment of DKA and patient continues to be monitored in the ICU. Patient's ventilatory status improved tolerating CPAP trial. Patient is s/p therapeutic bronchoscopy 11/15, , 11/18. Pt tolerated well. On CPAP trials to plan for extubation. Plan: Neuro: Neurochecks Q4 Sedation: Propofol 100 cc @ 3.493 cc/hr IV Q24H (5 mcg/kg/min) Cardiovascular: Imagin/26 CT soft tissue neck: no significant evidence of lymphadenopathy, moderately enlarged ET and NG tube. 11/13 CT Lower extremity: soft tissue swelling/stranding suggestive of cellulitis. No evidence of abscess. 11/13 CTA of chest/abdomen/pelvis: suspicious mass lesion at right kidney midpole 4.2 x 4.5. Moderate enlargement of bilateral adrenal gland with right > left. Low attenuation nodules. increase in size of left pleural effusion since pervious study. complete collapse of left lower lobe. 2.8 cm low-attenuation lesion at anterior upper portion of spleen. foci of cortical irregularity and lucency in spine and right ribs. cardiomegaly 11/10 Duplex scan lower extremity artery: no evidence of deep or superficial vein thrombosis of Right and Left lower extremity. 11/09 Echocardiogram: LVEF 65%, elevated diastolic filling pressures. 11/04 EKG: atrial fibrillation with RVR, PVCs @ 153 bpm 11/17 CT Surgery consult - Dr. Scooter Avalos - no surgical intervention needed at time time Metoprolol 2.5 mg IVP Q6H CRISTOBAL Acetazolamide 500 mg IV Q8 CRISTOBAL Amiodarone HCl 200 mg PO TID Diltiazem 60 mg PO Q6 CRISTOBAL Pulmonary: Considerations for trach b/c patient is not as alert today. She may not be able to sustain extubation efforts CXR 11/21: Moderate to severe venous congestion with prominent bibasilar airspace opacities and moderate bilateral pleural effusions Solumedrol 10 mg IVP daily s/p therapeutic bronch 11/15, 11/16, 11/18 - improved secretions. Lasix 40mg IV once Endo: HHS Diabetes - uncontrolled History of Hyperthyroidism T4 2.59 TSH <0.02 Methimazole 10 mg PO BID CRISTOBAL Novolin R 0 unit SC Q6H CRISTOBAL Lantus 22 units 0600 and 2000 CRISTOBAL Accucheck Q6 ACHS Hyperglycemia- steroids component as well tho patient needs better control GI: Fluid differential Pathologist review - few sheets of reactive mesothelial cells. scattered lymphocytes, macrophages, and RBCs negative for malignant cells. mildly inflamed pleural fluid negative for malignant cells. Daily CMP Senna/Docusate 50 mg - 8.6 mg 1 tab PO BID Vitamin A & D oint UD foilpak 1 ea TOP BID CRISTOBAL : Monitor I/Os Maintain Hemphill care Nephro: BUN/Cr: no significant change Hypernatremia resolved Hypokalemia repleted Hypophosphatemia - repleted Monitor I/Os Daily CMP Heme: H&H stable Daily CBC ID: WBC stable MRSA bronchial culture Daily CBC Nystatin TOP TID CRISTOBAL Acetaminophen 650 mg UT Q6 PRN temperature >101 F Vancomycin 1500 mg, 500 cc @ 250 cc/hr IVPB Q12H Imipenem/Cilastatin 1 Gm 250 cc @ 250 cc/hr IVPB Q8H CRISTOBAL Vanco trough 11/16 16.1 Prophylaxis: DVT: SCDs, Lovenox 110 mg SC Q12 CRISTOBAL GI: Protonix 40 mg IVP daily CRISTOBAL <Aki Calle S - Last Filed: 11/22/16 18:17> CCU Objective - Vital Signs / Intake & Output Vital Signs (Last 4 hours): Vital Signs Temp Pulse Resp BP Pulse Ox 11/22/16 17:00 111 H 21 114/62 97 11/22/16 16:00 99.2 F 128 H 19 152/98 H 96 11/22/16 15:00 121 H 21 150/74 95 Intake and Output (Last 8hrs): Intake & Output 11/22/16 11/22/16 11/22/16 06:59 14:59 22:59 Intake Total 1343.5 1440.6 528.1 Output Total 640 80 Balance 703.5 1360.6 528.1 Weight 242 lb 8.136 oz Intake: Intake, IV Amount 323.5 920.6 138.1 Right Distal Port 250 875 125 Right Medial Port 73.5 45.6 13.1 Internal Jugular Tube Feeding 400 400 150 Other 620 120 240 Output: Urine 640 80 Urethral (Hemphill) 640 80 - Medications Active Medications: Active Medications Generic Name Dose Route Start Last Admin Trade Name Freq PRN Reason Stop Dose Admin Acetaminophen 650 mg 11/14/16 20:10 11/16/16 08:59 Tylenol 650mg/20.3ml Solution Ud GT 650 mg Q6 PRN Administration Fever >100.4 F Amiodarone HCl 200 mg 11/15/16 18:00 11/22/16 17:09 Cordarone PO 200 mg Q8H CRISTOBAL Administration Diltiazem HCl 60 mg 11/15/16 12:00 11/22/16 17:09 Cardizem PO 60 mg Q6 CRISTOBAL Administration Heparin Sodium (Porcine) 5,000 units 11/22/16 22:00 Heparin SC Q12 CRISTOBAL Propofol 100 mls @ 3.493 mls/hr 11/08/16 08:29 11/22/16 17:10 Diprivan IV 5 mcg/kg/min .Q24H PRN Titration TITRATE PER MD ORDER Protocol 5 MCG/KG/MIN Imipenem/Cilastatin Sodium 1, 250 mls @ 250 mls/hr 11/15/16 13:00 11/22/16 14: 14 000 mg/ Sodium Chloride IVPB 250 mls/hr Q8H CRISTOBAL Administration Vancomycin/Sodium Chloride 200 mls @ 166.6 mls/hr 11/19/16 10:00 11/22/16 09:10 Vancocin IVPB 166.6 mls/hr Q12H CRISTOBAL Administration Insulin Glargine 22 unit 11/17/16 20:17 11/18/16 21:39 Lantus SC 22 u 0800,2000 CRISTOBAL Administration Insulin Human Regular 0 unit 11/17/16 08:38 11/22/16 17:16 Novolin R SC 6 unit Q6 CRISTOBAL Administration Protocol Methimazole 10 mg 11/18/16 10:00 11/22/16 17:09 Tapazole PO 10 mg TID CRISTOBAL Administration Methylprednisolone 10 mg 11/17/16 10:00 11/22/16 09:07 Solu-Medrol IVP 10 mg DAILY CRISTOBAL Administration Metoprolol Succinate 12.5 mg 11/16/16 10:30 11/22/16 09:09 Toprol Xl PO 12.5 mg DAILY CRISTOBAL Administration Nystatin 0 ea 11/04/16 18:00 11/22/16 17:10 Mycostatin Cream TOP 1 applic TID CRISTOBAL Administration Pantoprazole Sodium 40 mg 11/23/16 10:00 Protonix Susp PO DAILY CRISTOBAL Vitamin A 1 ea 11/09/16 18:00 11/22/16 17:11 Vitamin A & D Oint Ud Foilpak TOP 1 ea BID CRISTOBAL Administration - Patient Studies Lab Studies: Lab Studies 11/22/16 11/22/16 11/22/16 Range/Units 17:15 11:43 06:38 WBC 6.9 (4.8-10.8) K/uL RBC 3.33 L (3.80-5.20) Mil/uL Hgb 9.5 L (11.0-16.0) g/dL Hct 30.2 L (34.0-47.0) % MCV 90.5 (81.0-99.0) fL MCH 28.4 (27.0-31.0) pg MCHC 31.4 L (33.0-37.0) g/dL RDW 15.1 H (11.5-14.5) % Plt Count 181 (130-400) K/uL MPV 9.2 (7.2-11.7) fL Neut % (Auto) 70.7 (50.0-75.0) % Lymph % (Auto) 19.1 L (20.0-40.0) % Upton % (Auto) 8.8 (0.0-10.0) % Eos % (Auto) 1.2 (0.0-4.0) % Baso % (Auto) 0.2 (0.0-2.0) % Neut # 4.9 (1.8-7.0) K/uL Lymph # 1.3 (1.0-4.3) K/uL Upton # 0.6 (0.0-0.8) K/uL Eos # 0.1 (0.0-0.7) K/uL Baso # 0.0 (0.0-0.2) K/uL Puncture Site pCO2 (35-45) mm/Hg pO2 (80-100) mm/Hg HCO3 (21-28) mmol/L ABG pH (7.35-7.45) ABG Total CO2 (22-28) mmol/L ABG O2 Saturation (95-98) % ABG Base Excess (-2.0-3.0) mmol/L ABG Hemoglobin (11.7-17.4) g/dL ABG Carboxyhemoglobin (0.5-1.5) % POC ABG HHb (Measured) (0.0-5.0) % ABG Methemoglobin (0.0-3.0) % Chaz Test A-a O2 Difference mm/Hg Respiratory Index Hgb O2 Saturation (95.0-98.0) % Mechanical Rate FiO2 % Tidal Volume PEEP Sodium (132-148) mmol/L Potassium (3.6-5.2) mmol/L Chloride (98-107) mmol/L Carbon Dioxide (22-30) mmol/L Anion Gap (10-20) BUN (7-17) mg/dL Creatinine (0.7-1.2) MG/DL Est GFR ( Amer) Est GFR (Non-Af Amer) POC Glucose (mg/dL) 275 H 295 H (65-110) mg/dL Random Glucose (65-105) mg/dL Calcium (8.6-10.4) mg/dl Phosphorus (2.5-4.5) mg/dL Magnesium (1.6-2.3) mg/dL Total Bilirubin (0.2-1.3) mg/dL AST (14-36) U/L ALT (9-52) U/L Alkaline Phosphatase (38-126) U/L Total Protein (6.3-8.3) g/dL Albumin (3.5-5.0) g/dL Globulin (2.2-3.9) gm/dL Albumin/Globulin Ratio (1.0-2.1) 11/22/16 11/22/16 11/22/16 Range/Units 06:36 05:59 04:25 WBC (4.8-10.8) K/uL RBC (3.80-5.20) Mil/uL Hgb (11.0-16.0) g/dL Hct (34.0-47.0) % MCV (81.0-99.0) fL MCH (27.0-31.0) pg MCHC (33.0-37.0) g/dL RDW (11.5-14.5) % Plt Count (130-400) K/uL MPV (7.2-11.7) fL Neut % (Auto) (50.0-75.0) % Lymph % (Auto) (20.0-40.0) % Upton % (Auto) (0.0-10.0) % Eos % (Auto) (0.0-4.0) % Baso % (Auto) (0.0-2.0) % Neut # (1.8-7.0) K/uL Lymph # (1.0-4.3) K/uL Upton # (0.0-0.8) K/uL Eos # (0.0-0.7) K/uL Baso # (0.0-0.2) K/uL Puncture Site Lr pCO2 39 (35-45) mm/Hg pO2 88 (80-100) mm/Hg HCO3 30.8 H (21-28) mmol/L ABG pH 7.51 H (7.35-7.45) ABG Total CO2 32.3 H (22-28) mmol/L ABG O2 Saturation 98.8 H (95-98) % ABG Base Excess 7.5 H (-2.0-3.0) mmol/L ABG Hemoglobin 9.3 L (11.7-17.4) g/dL ABG Carboxyhemoglobin 1.9 H (0.5-1.5) % POC ABG HHb (Measured) 1.2 (0.0-5.0) % ABG Methemoglobin 1.2 (0.0-3.0) % Chaz Test Pos A-a O2 Difference 77.0 mm/Hg Respiratory Index 0.9 Hgb O2 Saturation 95.7 (95.0-98.0) % Mechanical Rate 14 FiO2 30.0 % Tidal Volume 500 PEEP 5 Sodium 144 (132-148) mmol/L Potassium 3.4 L (3.6-5.2) mmol/L Chloride 103 (98-107) mmol/L Carbon Dioxide 34 H (22-30) mmol/L Anion Gap 10 (10-20) BUN 30 H (7-17) mg/dL Creatinine 0.5 L (0.7-1.2) MG/DL Est GFR ( Amer) > 60 Est GFR (Non-Af Amer) > 60 POC Glucose (mg/dL) 247 H (65-110) mg/dL Random Glucose 210 H (65-105) mg/dL Calcium 8.0 L (8.6-10.4) mg/dl Phosphorus 2.2 L (2.5-4.5) mg/dL Magnesium 2.2 (1.6-2.3) mg/dL Total Bilirubin 0.6 (0.2-1.3) mg/dL AST 14 D (14-36) U/L ALT 23 (9-52) U/L Alkaline Phosphatase 51 (38-126) U/L Total Protein 4.6 L (6.3-8.3) g/dL Albumin 2.1 L (3.5-5.0) g/dL Globulin 2.5 (2.2-3.9) gm/dL Albumin/Globulin Ratio 0.8 L (1.0-2.1) 11/21/16 Range/Units 23:44 WBC (4.8-10.8) K/uL RBC (3.80-5.20) Mil/uL Hgb (11.0-16.0) g/dL Hct (34.0-47.0) % MCV (81.0-99.0) fL MCH (27.0-31.0) pg MCHC (33.0-37.0) g/dL RDW (11.5-14.5) % Plt Count (130-400) K/uL MPV (7.2-11.7) fL Neut % (Auto) (50.0-75.0) % Lymph % (Auto) (20.0-40.0) % [place] % (Auto) (0.0-10.0) % Eos % (Auto) (0.0-4.0) % Baso % (Auto) (0.0-2.0) % Neut # (1.8-7.0) K/uL Lymph # (1.0-4.3) K/uL Upton # (0.0-0.8) K/uL Eos # (0.0-0.7) K/uL Baso # (0.0-0.2) K/uL Puncture Site pCO2 (35-45) mm/Hg pO2 (80-100) mm/Hg HCO3 (21-28) mmol/L ABG pH (7.35-7.45) ABG Total CO2 (22-28) mmol/L ABG O2 Saturation (95-98) % ABG Base Excess (-2.0-3.0) mmol/L ABG Hemoglobin (11.7-17.4) g/dL ABG Carboxyhemoglobin (0.5-1.5) % POC ABG HHb (Measured) (0.0-5.0) % ABG Methemoglobin (0.0-3.0) % Chaz Test A-a O2 Difference mm/Hg Respiratory Index Hgb O2 Saturation (95.0-98.0) % Mechanical Rate FiO2 % Tidal Volume PEEP Sodium (132-148) mmol/L Potassium (3.6-5.2) mmol/L Chloride (98-107) mmol/L Carbon Dioxide (22-30) mmol/L Anion Gap (10-20) BUN (7-17) mg/dL Creatinine (0.7-1.2) MG/DL Est GFR ( Amer) Est GFR (Non-Af Amer) POC Glucose (mg/dL) 277 H (65-110) mg/dL Random Glucose (65-105) mg/dL Calcium (8.6-10.4) mg/dl Phosphorus (2.5-4.5) mg/dL Magnesium (1.6-2.3) mg/dL Total Bilirubin (0.2-1.3) mg/dL AST (14-36) U/L ALT (9-52) U/L Alkaline Phosphatase (38-126) U/L Total Protein (6.3-8.3) g/dL Albumin (3.5-5.0) g/dL Globulin (2.2-3.9) gm/dL Albumin/Globulin Ratio (1.0-2.1) Laboratory Results - last 24 hr 11/21/16 11/22/16 11/22/16 23:44 04:25 05:59 WBC RBC Hgb Hct MCV MCH MCHC RDW Plt Count MPV Neut % (Auto) Lymph % (Auto) Upton % (Auto) Eos % (Auto) Baso % (Auto) Neut # Lymph # [place] # Eos # Baso # Puncture Site Lr pCO2 39 pO2 88 HCO3 30.8 H ABG pH 7.51 H ABG Total CO2 32.3 H ABG O2 Saturation 98.8 H ABG Base Excess 7.5 H ABG Hemoglobin 9.3 L ABG Carboxyhemoglobin 1.9 H POC ABG HHb (Measured) 1.2 ABG Methemoglobin 1.2 Chaz Test Pos A-a O2 Difference 77.0 Respiratory Index 0.9 Hgb O2 Saturation 95.7 Mechanical Rate 14 FiO2 30.0 Tidal Volume 500 PEEP 5 Sodium Potassium Chloride Carbon Dioxide Anion Gap BUN Creatinine Est GFR ( Amer) Est GFR (Non-Af Amer) POC Glucose (mg/dL) 277 H 247 H Random Glucose Calcium Phosphorus Magnesium Total Bilirubin AST ALT Alkaline Phosphatase Total Protein Albumin Globulin Albumin/Globulin Ratio 11/22/16 11/22/16 11/22/16 06:36 06:38 11:43 WBC 6.9 RBC 3.33 L Hgb 9.5 L Hct 30.2 L MCV 90.5 MCH 28.4 MCHC 31.4 L RDW 15.1 H Plt Count 181 MPV 9.2 Neut % (Auto) 70.7 Lymph % (Auto) 19.1 L Upton % (Auto) 8.8 Eos % (Auto) 1.2 Baso % (Auto) 0.2 Neut # 4.9 Lymph # 1.3 Upton # 0.6 Eos # 0.1 Baso # 0.0 Puncture Site pCO2 pO2 HCO3 ABG pH ABG Total CO2 ABG O2 Saturation ABG Base Excess ABG Hemoglobin ABG Carboxyhemoglobin POC ABG HHb (Measured) ABG Methemoglobin Chaz Test A-a O2 Difference Respiratory Index Hgb O2 Saturation Mechanical Rate FiO2 Tidal Volume PEEP Sodium 144 Potassium 3.4 L Chloride 103 Carbon Dioxide 34 H Anion Gap 10 BUN 30 H Creatinine 0.5 L Est GFR ( Amer) > 60 Est GFR (Non-Af Amer) > 60 POC Glucose (mg/dL) 295 H Random Glucose 210 H Calcium 8.0 L Phosphorus 2.2 L Magnesium 2.2 Total Bilirubin 0.6 AST 14 D ALT 23 Alkaline Phosphatase 51 Total Protein 4.6 L Albumin 2.1 L Globulin 2.5 Albumin/Globulin Ratio 0.8 L 11/22/16 17:15 WBC RBC Hgb Hct MCV MCH MCHC RDW Plt Count MPV Neut % (Auto) Lymph % (Auto) Upton % (Auto) Eos % (Auto) Baso % (Auto) Neut # Lymph # [place] # Eos # Baso # Puncture Site pCO2 pO2 HCO3 ABG pH ABG Total CO2 ABG O2 Saturation ABG Base Excess ABG Hemoglobin ABG Carboxyhemoglobin POC ABG HHb (Measured) ABG Methemoglobin Chaz Test A-a O2 Difference Respiratory Index Hgb O2 Saturation Mechanical Rate FiO2 Tidal Volume PEEP Sodium Potassium Chloride Carbon Dioxide Anion Gap BUN Creatinine Est GFR ( Amer) Est GFR (Non-Af Amer) POC Glucose (mg/dL) 275 H Random Glucose Calcium Phosphorus Magnesium Total Bilirubin AST ALT Alkaline Phosphatase Total Protein Albumin Globulin Albumin/Globulin Ratio Assessment/Plan (1) Respiratory failure with hypoxia Current Visit: Yes Status: Acute Comment: Continue CPAP trial Still has copious secretions and does not follow commands Continue IV antibiotics and follow-up chest x-ray Bronchoscopy and bronchoalveolar lavage (2) Atrial fibrillation with rapid ventricular response Current Visit: Yes Status: Acute Attending/Attestation - Attestation I have personally seen and examined this patient.: Yes I have fully participated in the care of the patient.: Yes I have reviewed all pertinent clinical information: Yes Notes (Text): 11/22/16 18:14 Patient seen and examined in the intensive care unit. Case discussed with house staff in the morning rounds. Open eyes to stimuli but does not follow commands and still has copious secretions Patient will benefit from tracheostomy and PEG insertion Continue antibiotics
[2016-11-22] MEDS ORDERED: Potassium Chloride 20 mEq/15 ml LIQ UD PO ONE (09:00)
[2016-11-22] MEDS: Nystatin 100,000 Units/gm Cream(15 gm) TOP SCH ×3 (09:02→17:10)
[2016-11-22] MEDS: Pantoprazole 40 mg EC Tab PO SCH (09:07)
[2016-11-22] MEDS: MethylPREDNISolone 40 mg Vial IVP SCH (09:07)
[2016-11-22] MEDS: Vitamins A & D Oint UD Foilpak TOP SCH ×2 (09:07→17:11)
[2016-11-22] MEDS: Metoprolol Succinate 12.5 mg XL PO SCH (09:09)
[2016-11-22] MEDS: Vancomycin 1 gm/NS 200 ml 200 ML IVPB SCH ×2 (09:10→21:43)
--- NOTE | 2016-11-22 12:10 | CP.PCM.CON ---
History of Present Illness - History of Present Illness History of Present Illness: Palliative consult for goals of care discussion Requested by Sarika ZAMORA Patient is a 61 yo female admitted with Rapid a Fib. After 12.5 mg of Cardizem heart rhythm improved. CT abd and chest suggested Pneumonia. Primaxin IV, Vanco IV, Solu Medrol initiated. On 11/21/2016 patient was intubated due to respiratory distress. Heart rhythm supported by cardorone and cardixem. BP 127/58, HR 80, RR 14, O2Sat 96 % on MV. PMH: DM, HTN, depression, anxiety, peripheral edema Soc. Hx: single fam hx Unknown Review of Systems - Review of Systems Systems not reviewed;Unavailable: Intubated Past Patient History - Tetanus Immunizations Tetanus Immunization: Unknown - Past Medical History & Family History Past Medical History?: Yes - Past Social History Smoking Status: Current Some Days Smoker - CARDIAC Hx Hypertension: Yes Hx Peripheral Edema: Yes - PULMONARY Hx Bronchitis: Yes - NEUROLOGICAL Hx Neurological Disorder: No - HEENT Hx HEENT Problems: No Other/Comment: WEARS READING GLASSES. - RENAL Hx Chronic Kidney Disease: No - ENDOCRINE/METABOLIC Hx Hyperthyroidism: Yes - HEMATOLOGICAL/ONCOLOGICAL Hx Blood Disorders: Yes Hx Blood Transfusions: Yes Hx Blood Transfusion Reaction: No - INTEGUMENTARY Hx Cellulitis: Yes - MUSCULOSKELETAL/RHEUMATOLOGICAL Hx Arthritis: Yes Hx Falls: Yes - GASTROINTESTINAL Hx Gastrointestinal Disorders: No - GENITOURINARY/GYNECOLOGICAL Hx Genitourinary Disorders: No - PSYCHIATRIC Hx Anxiety: Yes Hx Depression: Yes Hx Substance Use: No - SURGICAL HISTORY Hx Surgeries: Yes Other/Comment: TUMOR FROM OVARIES REMOVED - ANESTHESIA Hx Anesthesia: Yes Hx Anesthesia Reactions: No Hx Malignant Hyperthermia: No Meds Allergies/Adverse Reactions: Allergies Allergy/AdvReac Type Severity Reaction Status Date / Time No Known Allergies Allergy Verified 11/04/16 11:37 - Medications Medications: Current Medications Acetaminophen (Tylenol 650mg/20.3ml Solution Ud) 650 mg GT Q6 PRN PRN Reason: Fever >100.4 F Last Admin: 11/16/16 08:59 Dose: 650 mg Amiodarone HCl (Cordarone) 200 mg PO Q8H [facility] Last Admin: 11/22/16 09:07 Dose: 200 mg Diltiazem HCl (Cardizem) 60 mg PO Q6 [facility] Last Admin: 11/22/16 06:22 Dose: 60 mg Propofol (Diprivan) 100 mls @ 3.493 mls/hr IV .Q24H PRN; Protocol; 5 MCG/KG/MIN PRN Reason: TITRATE PER MD ORDER Last Admin: 11/22/16 04:15 Dose: 8.383 mls/hr Imipenem/Cilastatin Sodium 1, (000 mg/ Sodium Chloride) 250 mls @ 250 mls/hr IVPB Q8H [facility] Last Admin: 11/22/16 04:14 Dose: 250 mls/hr Vancomycin/Sodium Chloride (Vancocin) 200 mls @ 166.6 mls/hr IVPB Q12H [facility] Last Admin: 11/22/16 09:10 Dose: 166.6 mls/hr Potassium Phosphate 15 mmole/ (Dextrose) 255 mls @ 42.5 mls/hr IVPB ONCE ONE Stop: 11/22/16 14:49 Last Admin: 11/22/16 10:01 Dose: 42.5 mls/hr Insulin Glargine (Lantus) 22 unit SC 0800,1999 [facility] Last Admin: 11/18/16 21:39 Dose: 22 u Insulin Human Regular (Novolin R) 0 unit SC Q6 [facility] PRN Reason: Protocol Last Admin: 11/22/16 06:22 Dose: 4 unit Methimazole (Tapazole) 10 mg PO TID [facility] Last Admin: 11/22/16 09:09 Dose: 10 mg Methylprednisolone (Solu-Medrol) 10 mg IVP DAILY [facility] Last Admin: 11/22/16 09:07 Dose: 10 mg Metoprolol Succinate (Toprol Xl) 12.5 mg PO DAILY [facility] Last Admin: 11/22/16 09:09 Dose: 12.5 mg Nystatin (Mycostatin Cream) 0 ea TOP TID [facility] Last Admin: 11/22/16 09:02 Dose: 1 applic Pantoprazole Sodium (Protonix Ec Tab) 40 mg PO DAILY [facility] Last Admin: 11/22/16 09:07 Dose: 40 mg Vitamin A (Vitamin A & D Oint Ud Foilpak) 1 ea TOP BID [facility] Last Admin: 11/22/16 09:07 Dose: 1 ea Physical Exam - Constitutional Appears: In Acute Distress - Head Exam Head Exam: ATRAUMATIC - Eye Exam Eye Exam: Normal appearance Pupil Exam: NORMAL ACCOMODATION - ENT Exam ENT Exam: Normal Exam Additional comments: ET Tube - Neck Exam Neck exam: Positive for: Normal Inspection - Respiratory Exam Additional comments: On MV - Cardiovascular Exam Cardiovascular Exam: Tachycardia - GI/Abdominal Exam GI & Abdominal Exam: Diminished Bowel Sounds - Rectal Exam Rectal Exam: Deferred - Extremities Exam Extremities exam: Positive for: pedal edema Additional comments: Very poor hygiene of toe nails - Back Exam Back exam: NORMAL INSPECTION - Neurological Exam Neurological exam: Alert, Altered - Psychiatric Exam Psychiatric exam: Agitated - Skin Skin Exam: Pallor Results - Vital Signs Recent Vital Signs: Last Vital Signs Temp 98.3 F 11/22/16 08:00 Pulse 98 H 11/22/16 11:00 Resp 22 11/22/16 11:00 BP 124/86 11/22/16 11:00 Pulse Ox 95 11/22/16 11:00 - Labs Result Diagrams: 11/22/16 06:38 11/22/16 06:36 Labs: Laboratory Results - last 24 hr 11/21/16 11/21/16 11/22/16 17:23 23:44 04:25 WBC RBC Hgb Hct MCV MCH MCHC RDW Plt Count MPV Neut % (Auto) Lymph % (Auto) Mineral % (Auto) Eos % (Auto) Baso % (Auto) Neut # Lymph # Mineral # Eos # Baso # Puncture Site Lr pCO2 39 pO2 88 HCO3 30.8 H ABG pH 7.51 H ABG Total CO2 32.3 H ABG O2 Saturation 98.8 H ABG Base Excess 7.5 H ABG Hemoglobin 9.3 L ABG Carboxyhemoglobin 1.9 H POC ABG HHb (Measured) 1.2 ABG Methemoglobin 1.2 Chaz Test Pos A-a O2 Difference 77.0 Respiratory Index 0.9 Hgb O2 Saturation 95.7 Mechanical Rate 14 FiO2 30.0 Tidal Volume 500 PEEP 5 Sodium Potassium Chloride Carbon Dioxide Anion Gap BUN Creatinine Est GFR ( Amer) Est GFR (Non-Af Amer) POC Glucose (mg/dL) 278 H 277 H Random Glucose Calcium Phosphorus Magnesium Total Bilirubin AST ALT Alkaline Phosphatase Total Protein Albumin Globulin Albumin/Globulin Ratio 11/22/16 11/22/16 11/22/16 05:59 06:36 06:38 WBC 6.9 RBC 3.33 L Hgb 9.5 L Hct 30.2 L MCV 90.5 MCH 28.4 MCHC 31.4 L RDW 15.1 H Plt Count 181 MPV 9.2 Neut % (Auto) 70.7 Lymph % (Auto) 19.1 L Mineral % (Auto) 8.8 Eos % (Auto) 1.2 Baso % (Auto) 0.2 Neut # 4.9 Lymph # 1.3 Mineral # 0.6 Eos # 0.1 Baso # 0.0 Puncture Site pCO2 pO2 HCO3 ABG pH ABG Total CO2 ABG O2 Saturation ABG Base Excess ABG Hemoglobin ABG Carboxyhemoglobin POC ABG HHb (Measured) ABG Methemoglobin Chaz Test A-a O2 Difference Respiratory Index Hgb O2 Saturation Mechanical Rate FiO2 Tidal Volume PEEP Sodium 144 Potassium 3.4 L Chloride 103 Carbon Dioxide 34 H Anion Gap 10 BUN 30 H Creatinine 0.5 L Est GFR ( Amer) > 60 Est GFR (Non-Af Amer) > 60 POC Glucose (mg/dL) 247 H Random Glucose 210 H Calcium 8.0 L Phosphorus 2.2 L Magnesium 2.2 Total Bilirubin 0.6 AST 14 D ALT 23 Alkaline Phosphatase 51 Total Protein 4.6 L Albumin 2.1 L Globulin 2.5 Albumin/Globulin Ratio 0.8 L Assessment & Plan - Assessment and Plan (Free Text) Assessment: Code status Full Code. No advance directive on chart.PPS 10%. ROS unobtained due to intubation. I reviewed medical records, all diagnostic studies and examined patient in the bed. ROS obtained from nursing. Total time spent, 60 min. patient is alert, very restless, suggesting discomfort caused by the ET tube. Diprivan on for mild sedation. Oral mucousa dry. Breath sounds diminished. Abdomen large and soft. There is edema to upper and lower extremities. Urine output good. Toes nail are too long with some degenerative changes. Soft boots on. Patient is moving freely all extremities. There some modest electolyte imbalance, low Ca, low Phosph, low Albumin and is being replaced. Patient is poor historian due to condition and reached out to her niece, service advocate contact on chart and left message requesting family meeting. Impression * Patient is dependent of MV and very restless * Patient's wishes for the end of life care are not known * Patient is not able to advocate for her self due to condition * Edema of upper and lower extremities * Patient needs child care cook for the care of toe nails Suggestion * Supportive care with goal to wean off the MV * Podiatry consult * Family meeting pending with alton Larkin Thank you for consulting palliative care
--- NOTE | 2016-11-22 15:56 | RAD ---
HISTORY: Intubated. . Technique: Single view portable semi erect @ 06:50. COMPARISON: Multiple serial examinations preceding the most recent study: November 21, 2016. FINDINGS: LUNGS: Improving infiltrates/pulmonary edema. PLEURA: No significant interval change compared to the prior examination(s). CARDIOVASCULAR: No radiographic findings to suggest acute or significant cardiovascular disease. Venous access catheter in stable, satisfactory position. OSSEOUS STRUCTURES: No significant abnormalities. VISUALIZED UPPER ABDOMEN: Normal. OTHER FINDINGS: Stable position of endotracheal tube and incompletely visualized nasogastric tube. IMPRESSION: Improving infiltrates/pulmonary edema.
--- NOTE | 2016-11-22 16:07 | US ---
PROCEDURE: Date of procedure: 11/10/2016 Procedure: 1. Ultrasound-guided Right thoracentesis, CPT 86531 Medications: 1% Lidocaine HISTORY: Right pleural effusion, shortness of breath TECHNIQUE: Following informed consent ,the Patients' right chest was marked. Procedure time-out was called, and the patient was placed in the sitting position and limited ultrasound showed a large right effusion. The patient's right back was prepped and draped in the usual sterile fashion. After the skin was anesthetized with lidocaine, a drainage catheter was advanced under ultrasound guidance into the pleural space. Ultrasound-guided thoracentesis was performed. A total of 1000 cubic centimeters of straw-colored fluid removed without complication. A Xeroform dressing was applied. IMPRESSION: Ultrasound guided Right thoracentesis. There were no immediate complications.
--- NOTE | 2016-11-22 22:39 | CP.PCM.PN ---
Subjective - Date & Time of Evaluation Date of Evaluation: 11/22/16 Time of Evaluation: 08:20 - Subjective Subjective: uncontrolled iDDM & hyperthyroidism Objective - Vital Signs/Intake and Output Vital Signs (last 24 hours): Temp Pulse Resp BP Pulse Ox 98.8 F 83 14 104/54 L 96 11/22/16 20:00 11/22/16 21:00 11/22/16 21:00 11/22/16 21:00 11/22/16 21:00 Intake and Output: 11/22/16 11/23/16 18:59 06:59 Intake Total 2025.7 671 Output Total 535 130 Balance 1490.7 541 - Medications Medications: Current Medications Acetaminophen (Tylenol 650mg/20.3ml Solution Ud) 650 mg GT Q6 PRN PRN Reason: Fever >100.4 F Last Admin: 11/16/16 08:59 Dose: 650 mg Amiodarone HCl (Cordarone) 200 mg PO Q8H [facility] Last Admin: 11/22/16 17:09 Dose: 200 mg Diltiazem HCl (Cardizem) 60 mg PO Q6 [facility] Last Admin: 11/22/16 17:09 Dose: 60 mg Heparin Sodium (Porcine) (Heparin) 5,000 units SC Q12 [facility] Last Admin: 11/22/16 21:43 Dose: 5,000 units Propofol (Diprivan) 100 mls @ 3.493 mls/hr IV .Q24H PRN; Protocol; 5 MCG/KG/MIN PRN Reason: TITRATE PER MD ORDER Last Admin: 11/22/16 18:42 Dose: 6.986 mls/hr Imipenem/Cilastatin Sodium 1, (000 mg/ Sodium Chloride) 250 mls @ 250 mls/hr IVPB Q8H [facility] Last Admin: 11/22/16 20:24 Dose: 250 mls/hr Vancomycin/Sodium Chloride (Vancocin) 200 mls @ 166.6 mls/hr IVPB Q12H [facility] Last Admin: 11/22/16 21:43 Dose: 166.6 mls/hr Insulin Glargine (Lantus) 10 unit SC HS [facility] Insulin Human Regular (Novolin R) 0 unit SC Q6 [facility] PRN Reason: Protocol Last Admin: 11/22/16 17:16 Dose: 6 unit Methimazole (Tapazole) 10 mg PO TID [facility] Last Admin: 11/22/16 17:09 Dose: 10 mg Methylprednisolone (Solu-Medrol) 10 mg IVP DAILY [facility] Last Admin: 11/22/16 09:07 Dose: 10 mg Metoprolol Succinate (Toprol Xl) 12.5 mg PO DAILY [facility] Last Admin: 11/22/16 09:09 Dose: 12.5 mg Nystatin (Mycostatin Cream) 0 ea TOP TID [facility] Last Admin: 11/22/16 17:10 Dose: 1 applic Pantoprazole Sodium (Protonix Susp) 40 mg PO DAILY [facility] Vitamin A (Vitamin A & D Oint Ud Foilpak) 1 ea TOP BID [facility] Last Admin: 11/22/16 17:11 Dose: 1 ea - Labs Labs: 11/22/16 06:38 11/22/16 06:36 PT 12.0 SECONDS (9.7-12.2) 11/13/16 04:57 INR 1.1 11/13/16 04:57 APTT 38 SECONDS (21-34) H D 11/13/16 04:57 Assessment and Plan (1) Diabetes mellitus, insulin dependent (IDDM), uncontrolled Assessment & Plan: Endocrine consult f/u reason for consult: uncontrolled diabetes source : chrart review , pt awake , alert with OGT tube for bleeding unable to give history & as per chart review poor historian is 61 y/o admitted for a fib with rapid venttirucular resonse & DKA / bilateral lower extremities cellulites ,pt was intubated & also started on insulin drip glucose on admission 1023 . also was started on steroid 40 mg po bid , endocrine was contacted yesterday 11/12 for uncontrolled IDDM glucose in 300- 400 & also pt with hyperthyroidism on tapazole , blood glucose log :270-290 , steroid increased 10 mg tid pt. re-intubated & continuos feeding NO hypoglycemia Allergy NKDA Past medical history : HTN , pedal edema Past surgical history : not documented Psychiatry history : (+) psychiatry disorder Social history : (+)smoking , ETOH use , illicit drug use Family history : unknown ROS: Constitutional: no fever ,tiredness/weakness .HEENT: no earache, change in voice .Respiratory: no cough, sob . CVS :no chest pain, no palpitations . Abdomen : no abdominal pain, no nausea /vomiting , no change bowel movement . 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 Extremities : (+) edema , no tremors . Skin: no itching, no rash Physical exam Well developed intubated , on continuos feeding VSS HEENT: norm cephalic, atraumatic , no lid lag , no exophthalmos , mild stare NECK: supple, no palpable lymphadenopathy THYROID: unable to palpable thyroid , not tender CHEST: fair air entry, bilateral, CVS: S1,S2 , ABDOMEN: bowel sound present, benign, obese, no wide purple striae , no bruises EXTREMITIES: bilateral hyper pigmented skin with edema, clubbing or cyanosis, no palpable hand tremors Skin : acanthosis nigricans lab: 11/16 FT4 2.59 , tsh <0.02 , T4 8.88 , wbc 9 , LFT wnl thyroid antibodies (-) tsh < 0.02 ,ft4 2.31 , t4 12.1 , a1c 14 , wbc 10.4 Assessment uncontrolled IDDM steroids induced hyperglycemia hyperthyroidisim with afib , on cardiazem & lopressor bilateral cellutitis a fib bleeding /fever /sepsis obesity Plan - resume lantus @ 10 units @ hs first today continue humalin R low dose coverage q6h on tapazole 10 mg po tid monior thyroid function Status: Chronic (2) Hyperthyroidism Status: Chronic (3) Atrial fibrillation with rapid ventricular response Status: Acute (4) Bilateral lower leg cellulitis Status: Acute (5) Steroid-induced hyperglycemia Status: Acute
[2016-11-22] MEDS ORDERED: (Lantus) Insulin Glargine, Recombinant SC SCH (22:45)
[2016-11-23] MEDS: (Novolin R) Insulin Human Regular 100 units/ml vial SC SCH ×4 (00:12→17:42)
--- NOTE | 2016-11-23 01:33 | CP.PCM.PN ---
Subjective - Date & Time of Evaluation Date of Evaluation: 11/22/16 Time of Evaluation: 10:13 - Subjective Subjective: Pt is still on MV, attempt weaning as O2 requirement is down to 30% Objective - Vital Signs/Intake and Output Vital Signs (last 24 hours): Temp Pulse Resp BP Pulse Ox 98 F 81 14 115/55 L 97 11/23/16 00:00 11/23/16 00:00 11/23/16 00:00 11/23/16 00:00 11/23/16 00:00 Intake and Output: 11/22/16 11/23/16 18:59 06:59 Intake Total 2025.7 1292 Output Total 535 230 Balance 1490.7 1062 - Medications Medications: Current Medications Acetaminophen (Tylenol 650mg/20.3ml Solution Ud) 650 mg GT Q6 PRN PRN Reason: Fever >100.4 F Last Admin: 11/16/16 08:59 Dose: 650 mg Amiodarone HCl (Cordarone) 200 mg PO Q8H [facility] Last Admin: 11/22/16 17:09 Dose: 200 mg Diltiazem HCl (Cardizem) 60 mg PO Q6 [facility] Last Admin: 11/22/16 23:20 Dose: 60 mg Heparin Sodium (Porcine) (Heparin) 5,000 units SC Q12 [facility] Last Admin: 11/22/16 21:43 Dose: 5,000 units Propofol (Diprivan) 100 mls @ 3.493 mls/hr IV .Q24H PRN; Protocol; 5 MCG/KG/MIN PRN Reason: TITRATE PER MD ORDER Last Admin: 11/22/16 18:42 Dose: 6.986 mls/hr Imipenem/Cilastatin Sodium 1, (000 mg/ Sodium Chloride) 250 mls @ 250 mls/hr IVPB Q8H [facility] Last Admin: 11/22/16 20:24 Dose: 250 mls/hr Vancomycin/Sodium Chloride (Vancocin) 200 mls @ 166.6 mls/hr IVPB Q12H [facility] Last Admin: 11/22/16 21:43 Dose: 166.6 mls/hr Insulin Glargine (Lantus) 10 unit SC HS [facility] Last Admin: 11/22/16 23:18 Dose: 10 units Insulin Human Regular (Novolin R) 0 unit SC Q6 [facility] PRN Reason: Protocol Last Admin: 11/23/16 00:12 Dose: 4 unit Methimazole (Tapazole) 10 mg PO TID [facility] Last Admin: 11/22/16 17:09 Dose: 10 mg Methylprednisolone (Solu-Medrol) 10 mg IVP DAILY [facility] Last Admin: 11/22/16 09:07 Dose: 10 mg Metoprolol Succinate (Toprol Xl) 12.5 mg PO DAILY [facility] Last Admin: 11/22/16 09:09 Dose: 12.5 mg Nystatin (Mycostatin Cream) 0 ea TOP TID [facility] Last Admin: 11/22/16 17:10 Dose: 1 applic Pantoprazole Sodium (Protonix Susp) 40 mg PO DAILY [facility] Vitamin A (Vitamin A & D Oint Ud Foilpak) 1 ea TOP BID [facility] Last Admin: 11/22/16 17:11 Dose: 1 ea - Labs Labs: 11/22/16 06:38 11/22/16 06:36 PT 12.0 SECONDS (9.7-12.2) 11/13/16 04:57 INR 1.1 11/13/16 04:57 APTT 38 SECONDS (21-34) H D 11/13/16 04:57 - Constitutional Appears: No Acute Distress, Chronically Ill - Head Exam Head Exam: ATRAUMATIC, NORMAL INSPECTION, NORMOCEPHALIC - Eye Exam Eye Exam: EOMI, Normal appearance, PERRL Pupil Exam: NORMAL ACCOMODATION, PERRL - Respiratory Exam Respiratory Exam: Decreased Breath Sounds - Cardiovascular Exam Cardiovascular Exam: REGULAR RHYTHM, +S1, +S2 - GI/Abdominal Exam GI & Abdominal Exam: Soft, Normal Bowel Sounds. absent: Tenderness Assessment and Plan (1) Diabetes Status: Chronic (2) HTN (hypertension) Status: Chronic (3) Bilateral lower leg cellulitis Status: Deleted (4) Atrial fibrillation with rapid ventricular response Status: Acute (5) CHF (congestive heart failure) Status: Acute (6) Pleural effusion Status: Acute
[2016-11-23 04:27] LABS: ABG ALLEN TEST POS; ABG MECHANICAL RATE 14; ARTERIAL BLOOD HGB O2 SAT 94.8 % (95.0-98.0); ATERIAL BLOOD GAS PEEP 5; DRAW SITE RR; HHB 2.2 % (0.0-5.0); METHEMOGLOBIN 1.1 % (0.0-3.0)
[2016-11-23 06:25] LABS: BASO % 0.4 % (0.0-2.0); EOS # 0.1 K/uL (0.0-0.7); EOS % 1.7 % (0.0-4.0); HEMATOCRIT 31.2 % (34.0-47.0); LYMPH # 1.6 K/uL (1.0-4.3); MEAN CELL VOLUME 90.5 fL (81.0-99.0); MEAN CORPUSCULAR HEMOGLOBIN 28.4 pg (27.0-31.0); MEAN CORPUSCULAR HGB CONC 31.4 g/dL (33.0-37.0); MEAN PLATELET VOLUME 8.9 fL (7.2-11.7); MONO # 0.5 K/uL (0.0-0.8); MONO % 7.3 % (0.0-10.0); RED CELL DISTRIBUTION WIDTH 15.1 % (11.5-14.5); WHITE BLOOD COUNT 7.1 K/uL (4.8-10.8)
[2016-11-23 06:38] LABS: CHLORIDE 103 mmol/L (98-107); POTASSIUM 3.8 mmol/L (3.6-5.2); SODIUM 144 mmol/L (132-148)
[2016-11-23 06:40] LABS: ALB/GLOB RATIO 0.8 (1.0-2.1); AST/SGOT 14 U/L (14-36); BILIRUBIN,TOTAL 0.5 mg/dL (0.2-1.3); CARBON DIOXIDE 34 mmol/L (22-30); GFR AFRICAN-AMERICAN > 60; TOTAL PROTEIN 4.6 g/dL (6.3-8.3)
[2016-11-23 06:41] LABS: ALKALINE PHOSPHATASE 56 U/L (38-126); ALT/SGPT 19 U/L (9-52); BLOOD UREA NITROGEN 27 mg/dL (7-17); CALCIUM 7.9 mg/dl (8.6-10.4); GLUCOSE,RANDOM 203 mg/dL (65-105); MAGNESIUM 2.1 mg/dL (1.6-2.3); PHOSPHOROUS 2.5 mg/dL (2.5-4.5)
[2016-11-23 06:54] LABS: FT3 3.19 pg/mL (2.77-5.27)
[2016-11-23 07:08] LABS: THYROID STIMULATING HORMONE < 0.02 mIU/L (0.46-4.68)
--- NOTE | 2016-11-23 07:14 | CP.CCUPN ---
<Eloina Allen - Last Filed: 11/23/16 15:43> CCU Subjective - Physician Review Subjective (Free Text): 11/08/16 13:06 Pt seen in mild distress requiring intubation. Two large pieces of dried mucus were extracted from the patient's throat obstructing vocal cords. Patient intubated. TLC line was also placed to ensure better IV access. As there is no power of employee benefits attorney or legal guardian, an administrative consent was obtained for central line. An ROS could not be obtained at this time because patient is intubated and sedated. 11/09/16 13:15 Patient seen at beside intubated and sedated. GCS 8T (FiO2 60 PEEP 5 VT 500 RR 16). No acute events overnight per nursing. A fib is rate controlled. Patient is stable. New vent settings after rounds PRVC (FiO2 60, PEEP 5, RR 12 VT 500). ROS couldn't be obtained because patient is intubated and sedated. 11/10/16 16:50 Pt seen and examined in no acute distress. Patient spiked a fever during overnight shift which initially responded to Tylenol and later returned during the morning shift. Patient administered tylenol and cooling blankets. Patient underwent thoracentesis for pleural effusion. Tolerated procedure well. Patient is rate controlled. ROS couldn't be obtained because patient is intubated and sedated. 11/11/16 8:34 Pt seen and examined in no acute distress. Patient seen at beside intubated and sedated. (FiO2 50 PEEP 5 RR 14 VT 500). Patient is awake, but does not follow commands. Patient has low grade fever this morning (T max 100.2, T 99.0-100.2). A fib is rate controlled. Patient is stable. ROS couldn't be obtained because patient was intubated and sedated at the time of evaluation 11/14/16 15:35 Patient seen at bedside in no acute distress. Patient intubated with vent settings of FiO2 50%, RR 14, PEEP 5, TV 500% and is saturating well at 100%. GCS 10T (E4 VT M6). Patient's last dose of propofol was given 11/12. Patient opens eyes spontaneously and moves extremities on her own. CPAP trial was done after morning rounds. Patient was tachycardic prior to morning rounds, but is currently rate controlled. Patient is stable. Patient spiked a fever overnight and is currently having a low grade fever (T max 101.1, T current 99.3). ROS could not be obtained because patient is intubated at time of evaluation. Over the weekend, NGT removed and replaced with OGT with Afrin spray in nose bilaterally. Right sided nasal packing inserted where NGT had been. 11/15/16 15:39 Patient seen at bedside in no acute distress. Patient intubated with vent settings of FiO2 50%, RR 14, PEEP 5, TV 500% and is saturating well at 100%. GCS 10T (E4 VT M6). Patient's last dose of propofol was given 11/12. Patient opens eyes spontaneously and moves extremities on her own. Patient is stable but still lethargic. Patient spiked a fever overnight and has normal temperature now (T max 101, T current 98.4). ROS could not be obtained because patient is intubated and lethargic at time of evaluation. 11/16/16 13:09 Patient seen at bedside in no acute distress. Patient intubated with vent settings of FiO2 50%, RR 14, PEEP 5, TV 500% and is saturating well at 100%. Patient is stable but still lethargic. Patient spiked a fever overnight and has normal temperature now (T max 101.4, T current 101.3). ROS could not be obtained because patient is intubated at time of evaluation. 11/18/16 20:33 Pt seen and examined in no acute distress. Patient intubated but tolerating CPAP trial. Patient opens eyes spontaneously and moves extremities on her own. Patient is stable but moderately lethargic. Patient afebrile overnight. ROS could not be obtained because patient is intubated at time of evaluation. 11/21/16 14:44 Pt seen and examined in no acute distress. No significant events overnight per nursing. Patient alert and restless currently though intermittently somnolent. Patient gestured that she would like the tube out. At this time, patient not able to comply to an ROS. 11/22/16 12:17 Pt seen and examined in no acute distress. No significant events overnight per nursing. Patient less alert today . At this time, patient not able to comply to an ROS. 11/23/16 15:04 Pt seen and examined s/p extubation. Patient had moderate secretions which were suctioned. Patient alert and mildly agitated but tolerant. At this time, denies subjective fevers or chills, nausea, vomiting, diarrhea, dyspnea or headaches . CCU Objective - Vital Signs / Intake & Output Vital Signs (Last 4 hours): Vital Signs Temp Pulse Resp BP Pulse Ox 11/23/16 07:00 69 14 123/76 97 11/23/16 06:00 85 14 122/68 96 11/23/16 05:00 81 14 125/54 L 94 L 11/23/16 04:00 98.5 F 78 14 116/64 96 Intake and Output (Last 8hrs): Intake & Output 11/22/16 11/23/16 11/23/16 22:59 06:59 14:59 Intake Total 1513.1 1013 Output Total 315 590 Balance 1198.1 423 Weight 243 lb Intake: Intake, IV Amount 623.1 63 Right Distal Port 575 Right Medial Port 48.1 63 Internal Jugular Tube Feeding 400 450 Other 490 500 Output: Urine 315 590 Urethral ([place]ill) 315 590 Other: # Bowel Movements 1 - Physical Exam Head: Positive for: Atraumatic, Normocephalic Pupils: Positive for: PERRL. Negative for: Sluggish, Non-Reactive Extroacular Muscles: Positive for: EOMI. Negative for: Gaze Palsy Conjunctiva: Positive for: Normal. Negative for: Injected, Icteric Mouth: Positive for: Moist Mucous Membranes Neck: Positive for: Normal Range of Motion, Trachea Midline. Negative for: Meningeal Signs, MIDLINE TENDERNESS, Paraspinal Tenderness, JVD, Lymphadenopathy , Bruit, Other Respiratory/Chest: Positive for: Good Air Exchange. Negative for: Rales Cardiovascular: Positive for: Irregular Rhythm, Peripheal Pulses Present. Negative for: Murmurs, Normal S1, S2 Abdomen: Negative for: Tenderness, Distention Upper Extremity: Positive for: Normal Inspection Lower Extremity: Positive for: Edema Neurological: Negative for: Speech Normal Skin: Positive for: Warm, Dry, Rashes Psychiatric: Positive for: Alert, Normal Affect, Normal Mood - Medications Active Medications: Active Medications Generic Name Dose Route Start Last Admin Trade Name Freq PRN Reason Stop Dose Admin Acetaminophen 650 mg 11/14/16 20:10 11/16/16 08:59 Tylenol 650mg/20.3ml Solution Ud GT 650 mg Q6 PRN Administration Fever >100.4 F Amiodarone HCl 200 mg 11/15/16 18:00 11/23/16 01:41 Cordarone PO 200 mg Q8H CRISTOBAL Administration Diltiazem HCl 60 mg 11/15/16 12:00 11/23/16 06:04 Cardizem PO 60 mg Q6 CRISTOBAL Administration Heparin Sodium (Porcine) 5,000 units 11/22/16 22:00 11/22/16 21:43 Heparin SC 5,000 units Q12 CRISTOBAL Administration Propofol 100 mls @ 3.493 mls/hr 11/08/16 08:29 11/22/16 18:42 Diprivan IV 6.986 mls/hr .Q24H PRN Administration TITRATE PER MD ORDER Protocol 5 MCG/KG/MIN Imipenem/Cilastatin Sodium 1, 250 mls @ 250 mls/hr 11/15/16 13:00 11/23/16 04: 50 000 mg/ Sodium Chloride IVPB 250 mls/hr Q8H CRISTOBAL Administration Vancomycin/Sodium Chloride 200 mls @ 166.6 mls/hr 11/19/16 10:00 11/22/16 21:43 Vancocin IVPB 166.6 mls/hr Q12H CRISTOBAL Administration Insulin Glargine 10 unit 11/22/16 22:45 11/22/16 23:18 Lantus SC 10 units HS CRISTOBAL Administration Insulin Human Regular 0 unit 11/17/16 08:38 11/23/16 06:05 Novolin R SC 4 unit Q6 CRISTOBAL Administration Protocol Methimazole 10 mg 11/18/16 10:00 11/22/16 17:09 Tapazole PO 10 mg TID CRISTOBAL Administration Methylprednisolone 10 mg 11/17/16 10:00 11/22/16 09:07 Solu-Medrol IVP 10 mg DAILY CRISTOBAL Administration Metoprolol Succinate 12.5 mg 11/16/16 10:30 11/22/16 09:09 Toprol Xl PO 12.5 mg DAILY CRISTOBAL Administration Nystatin 0 ea 11/04/16 18:00 11/22/16 17:10 Mycostatin Cream TOP 1 applic TID CRISTOBAL Administration Pantoprazole Sodium 40 mg 11/23/16 10:00 Protonix Susp PO DAILY CRISTOBAL Vitamin A 1 ea 11/09/16 18:00 11/22/16 17:11 Vitamin A & D Oint Ud Foilpak TOP 1 ea BID CRISTOBAL Administration - Patient Studies Lab Studies: Lab Studies 11/23/16 11/23/16 11/23/16 Range/Units 06:21 06:17 05:57 WBC 7.1 (4.8-10.8) K/uL RBC 3.45 L (3.80-5.20) Mil/uL Hgb 9.8 L (11.0-16.0) g/dL Hct 31.2 L (34.0-47.0) % MCV 90.5 (81.0-99.0) fL MCH 28.4 (27.0-31.0) pg MCHC 31.4 L (33.0-37.0) g/dL RDW 15.1 H (11.5-14.5) % Plt Count 177 (130-400) K/uL MPV 8.9 (7.2-11.7) fL Neut % (Auto) 68.6 (50.0-75.0) % Lymph % (Auto) 22.0 (20.0-40.0) % [place] % (Auto) 7.3 (0.0-10.0) % Eos % (Auto) 1.7 (0.0-4.0) % Baso % (Auto) 0.4 (0.0-2.0) % Neut # 4.9 (1.8-7.0) K/uL Lymph # 1.6 (1.0-4.3) K/uL [place] # 0.5 (0.0-0.8) K/uL Eos # 0.1 (0.0-0.7) K/uL Baso # 0.0 (0.0-0.2) K/uL Puncture Site pCO2 (35-45) mm/Hg pO2 (80-100) mm/Hg HCO3 (21-28) mmol/L ABG pH (7.35-7.45) ABG Total CO2 (22-28) mmol/L ABG O2 Saturation (95-98) % ABG Base Excess (-2.0-3.0) mmol/L ABG Hemoglobin (11.7-17.4) g/dL ABG Carboxyhemoglobin (0.5-1.5) % POC ABG HHb (Measured) (0.0-5.0) % ABG Methemoglobin (0.0-3.0) % Chaz Test A-a O2 Difference mm/Hg Respiratory Index Hgb O2 Saturation (95.0-98.0) % Mechanical Rate FiO2 % Tidal Volume PEEP Sodium 144 (132-148) mmol/L Potassium 3.8 (3.6-5.2) mmol/L Chloride 103 (98-107) mmol/L Carbon Dioxide 34 H (22-30) mmol/L Anion Gap 11 (10-20) BUN 27 H (7-17) mg/dL Creatinine 0.5 L (0.7-1.2) MG/DL Est GFR ( Amer) > 60 Est GFR (Non-Af Amer) > 60 POC Glucose (mg/dL) 245 H (65-110) mg/dL Random Glucose 203 H (65-105) mg/dL Calcium 7.9 L (8.6-10.4) mg/dl Phosphorus 2.5 (2.5-4.5) mg/dL Magnesium 2.1 (1.6-2.3) mg/dL Total Bilirubin 0.5 (0.2-1.3) mg/dL AST 14 (14-36) U/L ALT 19 (9-52) U/L Alkaline Phosphatase 56 (38-126) U/L Total Protein 4.6 L (6.3-8.3) g/dL Albumin 2.1 L (3.5-5.0) g/dL Globulin 2.6 (2.2-3.9) gm/dL Albumin/Globulin Ratio 0.8 L (1.0-2.1) Free T4 2.28 H (0.78-2.19) ng/dL 11/23/16 11/23/16 11/22/16 Range/Units 04:20 00:05 17:15 WBC (4.8-10.8) K/uL RBC (3.80-5.20) Mil/uL Hgb (11.0-16.0) g/dL Hct (34.0-47.0) % MCV (81.0-99.0) fL MCH (27.0-31.0) pg MCHC (33.0-37.0) g/dL RDW (11.5-14.5) % Plt Count (130-400) K/uL MPV (7.2-11.7) fL Neut % (Auto) (50.0-75.0) % Lymph % (Auto) (20.0-40.0) % [place] % (Auto) (0.0-10.0) % Eos % (Auto) (0.0-4.0) % Baso % (Auto) (0.0-2.0) % Neut # (1.8-7.0) K/uL Lymph # (1.0-4.3) K/uL [place] # (0.0-0.8) K/uL Eos # (0.0-0.7) K/uL Baso # (0.0-0.2) K/uL Puncture Site Rr pCO2 43 (35-45) mm/Hg pO2 73 L (80-100) mm/Hg HCO3 33.5 H (21-28) mmol/L ABG pH 7.52 H (7.35-7.45) ABG Total CO2 36.4 H (22-28) mmol/L ABG O2 Saturation 97.7 (95-98) % ABG Base Excess 11.1 H (-2.0-3.0) mmol/L ABG Hemoglobin 12.0 (11.7-17.4) g/dL ABG Carboxyhemoglobin 2.0 H (0.5-1.5) % POC ABG HHb (Measured) 2.2 (0.0-5.0) % ABG Methemoglobin 1.1 (0.0-3.0) % Chaz Test Pos A-a O2 Difference 87.0 mm/Hg Respiratory Index 1.2 Hgb O2 Saturation 94.8 L (95.0-98.0) % Mechanical Rate 14 FiO2 30.0 % Tidal Volume 500 PEEP 5 Sodium (132-148) mmol/L Potassium (3.6-5.2) mmol/L Chloride (98-107) mmol/L Carbon Dioxide (22-30) mmol/L Anion Gap (10-20) BUN (7-17) mg/dL Creatinine (0.7-1.2) MG/DL Est GFR ( Amer) Est GFR (Non-Af Amer) POC Glucose (mg/dL) 248 H 275 H (65-110) mg/dL Random Glucose (65-105) mg/dL Calcium (8.6-10.4) mg/dl Phosphorus (2.5-4.5) mg/dL Magnesium (1.6-2.3) mg/dL Total Bilirubin (0.2-1.3) mg/dL AST (14-36) U/L ALT (9-52) U/L Alkaline Phosphatase (38-126) U/L Total Protein (6.3-8.3) g/dL Albumin (3.5-5.0) g/dL Globulin (2.2-3.9) gm/dL Albumin/Globulin Ratio (1.0-2.1) Free T4 (0.78-2.19) ng/dL 11/22/16 Range/Units 11:43 WBC (4.8-10.8) K/uL RBC (3.80-5.20) Mil/uL Hgb (11.0-16.0) g/dL Hct (34.0-47.0) % MCV (81.0-99.0) fL MCH (27.0-31.0) pg MCHC (33.0-37.0) g/dL RDW (11.5-14.5) % Plt Count (130-400) K/uL MPV (7.2-11.7) fL Neut % (Auto) (50.0-75.0) % Lymph % (Auto) (20.0-40.0) % [place] % (Auto) (0.0-10.0) % Eos % (Auto) (0.0-4.0) % Baso % (Auto) (0.0-2.0) % Neut # (1.8-7.0) K/uL Lymph # (1.0-4.3) K/uL [place] # (0.0-0.8) K/uL Eos # (0.0-0.7) K/uL Baso # (0.0-0.2) K/uL Puncture Site pCO2 (35-45) mm/Hg pO2 (80-100) mm/Hg HCO3 (21-28) mmol/L ABG pH (7.35-7.45) ABG Total CO2 (22-28) mmol/L ABG O2 Saturation (95-98) % ABG Base Excess (-2.0-3.0) mmol/L ABG Hemoglobin (11.7-17.4) g/dL ABG Carboxyhemoglobin (0.5-1.5) % POC ABG HHb (Measured) (0.0-5.0) % ABG Methemoglobin (0.0-3.0) % Chaz Test A-a O2 Difference mm/Hg Respiratory Index Hgb O2 Saturation (95.0-98.0) % Mechanical Rate FiO2 % Tidal Volume PEEP Sodium (132-148) mmol/L Potassium (3.6-5.2) mmol/L Chloride (98-107) mmol/L Carbon Dioxide (22-30) mmol/L Anion Gap (10-20) BUN (7-17) mg/dL Creatinine (0.7-1.2) MG/DL Est GFR ( Amer) Est GFR (Non-Af Amer) POC Glucose (mg/dL) 295 H (65-110) mg/dL Random Glucose (65-105) mg/dL Calcium (8.6-10.4) mg/dl Phosphorus (2.5-4.5) mg/dL Magnesium (1.6-2.3) mg/dL Total Bilirubin (0.2-1.3) mg/dL AST (14-36) U/L ALT (9-52) U/L Alkaline Phosphatase (38-126) U/L Total Protein (6.3-8.3) g/dL Albumin (3.5-5.0) g/dL Globulin (2.2-3.9) gm/dL Albumin/Globulin Ratio (1.0-2.1) Free T4 (0.78-2.19) ng/dL Laboratory Results - last 24 hr 11/22/16 11/22/16 11/23/16 11:43 17:15 00:05 WBC RBC Hgb Hct MCV MCH MCHC RDW Plt Count MPV Neut % (Auto) Lymph % (Auto) [place] % (Auto) Eos % (Auto) Baso % (Auto) Neut # Lymph # [place] # Eos # Baso # Puncture Site pCO2 pO2 HCO3 ABG pH ABG Total CO2 ABG O2 Saturation ABG Base Excess ABG Hemoglobin ABG Carboxyhemoglobin POC ABG HHb (Measured) ABG Methemoglobin Chaz Test A-a O2 Difference Respiratory Index Hgb O2 Saturation Mechanical Rate FiO2 Tidal Volume PEEP Sodium Potassium Chloride Carbon Dioxide Anion Gap BUN Creatinine Est GFR ( Amer) Est GFR (Non-Af Amer) POC Glucose (mg/dL) 295 H 275 H 248 H Random Glucose Calcium Phosphorus Magnesium Total Bilirubin AST ALT Alkaline Phosphatase Total Protein Albumin Globulin Albumin/Globulin Ratio Free T4 11/23/16 11/23/16 11/23/16 04:20 05:57 06:17 WBC RBC Hgb Hct MCV MCH MCHC RDW Plt Count MPV Neut % (Auto) Lymph % (Auto) [place] % (Auto) Eos % (Auto) Baso % (Auto) Neut # Lymph # [place] # Eos # Baso # Puncture Site Rr pCO2 43 pO2 73 L HCO3 33.5 H ABG pH 7.52 H ABG Total CO2 36.4 H ABG O2 Saturation 97.7 ABG Base Excess 11.1 H ABG Hemoglobin 12.0 ABG Carboxyhemoglobin 2.0 H POC ABG HHb (Measured) 2.2 ABG Methemoglobin 1.1 Chaz Test Pos A-a O2 Difference 87.0 Respiratory Index 1.2 Hgb O2 Saturation 94.8 L Mechanical Rate 14 FiO2 30.0 Tidal Volume 500 PEEP 5 Sodium 144 Potassium 3.8 Chloride 103 Carbon Dioxide 34 H Anion Gap 11 BUN 27 H Creatinine 0.5 L Est GFR ( Amer) > 60 Est GFR (Non-Af Amer) > 60 POC Glucose (mg/dL) 245 H Random Glucose 203 H Calcium 7.9 L Phosphorus 2.5 Magnesium 2.1 Total Bilirubin 0.5 AST 14 ALT 19 Alkaline Phosphatase 56 Total Protein 4.6 L Albumin 2.1 L Globulin 2.6 Albumin/Globulin Ratio 0.8 L Free T4 2.28 H 11/23/16 06:21 WBC 7.1 RBC 3.45 L Hgb 9.8 L Hct 31.2 L MCV 90.5 MCH 28.4 MCHC 31.4 L RDW 15.1 H Plt Count 177 MPV 8.9 Neut % (Auto) 68.6 Lymph % (Auto) 22.0 [place] % (Auto) 7.3 Eos % (Auto) 1.7 Baso % (Auto) 0.4 Neut # 4.9 Lymph # 1.6 [place] # 0.5 Eos # 0.1 Baso # 0.0 Puncture Site pCO2 pO2 HCO3 ABG pH ABG Total CO2 ABG O2 Saturation ABG Base Excess ABG Hemoglobin ABG Carboxyhemoglobin POC ABG HHb (Measured) ABG Methemoglobin Chaz Test A-a O2 Difference Respiratory Index Hgb O2 Saturation Mechanical Rate FiO2 Tidal Volume PEEP Sodium Potassium Chloride Carbon Dioxide Anion Gap BUN Creatinine Est GFR ( Amer) Est GFR (Non-Af Amer) POC Glucose (mg/dL) Random Glucose Calcium Phosphorus Magnesium Total Bilirubin AST ALT Alkaline Phosphatase Total Protein Albumin Globulin Albumin/Globulin Ratio Free T4 Fingerstick Blood Sugar Results: 245 Assessment/Plan - Assessment and Plan (Free Text) Assessment: 61 F with history of hyperthyroidism, admitted to ED for hyperglycemia, altered mental status, and a-fib. Patient was admitted to ICU for treatment of DKA and patient continues to be monitored in the ICU. Patient's ventilatory status improved tolerating CPAP trial. Patient is s/p therapeutic bronchoscopy 11/15, , 11/18. Pt tolerated well. Extubated 11/23/16. Plan: Neuro: Neurochecks Q4 Sedation: Propofol 100 cc @ 3.493 cc/hr IV Q24H (5 mcg/kg/min) Cardiovascular: Imagin/26 CT soft tissue neck: no significant evidence of lymphadenopathy, moderately enlarged ET and NG tube. 11/13 CT Lower extremity: soft tissue swelling/stranding suggestive of cellulitis. No evidence of abscess. 11/13 CTA of chest/abdomen/pelvis: suspicious mass lesion at right kidney midpole 4.2 x 4.5. Moderate enlargement of bilateral adrenal gland with right > left. Low attenuation nodules. increase in size of left pleural effusion since pervious study. complete collapse of left lower lobe. 2.8 cm low-attenuation lesion at anterior upper portion of spleen. foci of cortical irregularity and lucency in spine and right ribs. cardiomegaly 11/10 Duplex scan lower extremity artery: no evidence of deep or superficial vein thrombosis of Right and Left lower extremity. 11/09 Echocardiogram: LVEF 65%, elevated diastolic filling pressures. 11/04 EKG: atrial fibrillation with RVR, PVCs @ 153 bpm 11/17 CT Surgery consult - - no surgical intervention needed at time time Metoprolol 2.5 mg IVP Q6H CRISTOBAL Acetazolamide 500 mg IV Q8 CRISTOBAL Amiodarone HCl 200 mg PO TID Diltiazem 60 mg PO Q6 CRISTOBAL Pulmonary: Patient tolerated CPAP trial. Extubated 11/23. On BIPAP. Monitor CXR 11/21: Moderate to severe venous congestion with prominent bibasilar airspace opacities and moderate bilateral pleural effusions Solumedrol 10 mg IVP daily s/p therapeutic bronch 11/15, 11/16, 11/18 - improved secretions. Lasix 40mg IV once Endo: HHS Diabetes - uncontrolled History of Hyperthyroidism T4 2.59 TSH <0.02 Methimazole 10 mg PO BID CRISTOBAL Novolin R 0 unit SC Q6H CRISTOBAL Lantus 10 units SC HS Accucheck Q6 ACHS Hyperglycemia- steroids component as well tho patient needs better control GI: Fluid differential Pathologist review - few sheets of reactive mesothelial cells. scattered lymphocytes, macrophages, and RBCs negative for malignant cells. mildly inflamed pleural fluid negative for malignant cells. Daily CMP Senna/Docusate 50 mg - 8.6 mg 1 tab PO BID Vitamin A & D oint UD foilpak 1 ea TOP BID CRISTOBAL : Monitor I/Os Maintain Hemphill care Nephro: BUN/Cr: Improving Monitor I/Os Daily CMP Heme: H&H stable Daily CBC ID: WBC stable MRSA bronchial culture Daily CBC Nystatin TOP TID CRISTOBAL Acetaminophen 650 mg MD Q6 PRN temperature >101 F Vancomycin 1500 mg, 500 cc @ 250 cc/hr IVPB Q12H Imipenem/Cilastatin 1 Gm 250 cc @ 250 cc/hr IVPB Q8H [facility] Vanco trough 11/16 16.1. F/U random vanco level Prophylaxis: DVT: SCDs, Heparin SC Q12 GI: Protonix 40 mg IVP daily [facility] <Aki Calle S - Last Filed: 11/23/16 17:13> CCU Objective - Vital Signs / Intake & Output Vital Signs (Last 4 hours): Vital Signs Pulse 11/23/16 15:50 96 H 11/23/16 13:31 92 H Intake and Output (Last 8hrs): Intake & Output 11/23/16 11/23/16 11/23/16 06:59 14:59 22:59 Intake Total 1013 907 Output Total 590 255 Balance 423 652 Weight 243 lb Intake: Intake, IV Amount 63 207 Right Medial Port 63 207 Internal Jugular Tube Feeding 450 200 Other 500 500 Output: Urine 590 255 Urethral ([place]) 590 255 Other: # Bowel Movements 1 - Medications Active Medications: Active Medications Generic Name Dose Route Start Last Admin Trade Name Freq PRN Reason Stop Dose Admin Acetaminophen 650 mg 11/14/16 20:10 11/16/16 08:59 Tylenol 650mg/20.3ml Solution Ud GT 650 mg Q6 PRN Administration Fever >100.4 F Amiodarone HCl 200 mg 11/15/16 18:00 11/23/16 09:08 Cordarone PO 200 mg Q8H CRISTOBAL Administration Diltiazem HCl 60 mg 11/15/16 12:00 11/23/16 12:17 Cardizem PO 60 mg Q6 CRISTOBAL Administration Heparin Sodium (Porcine) 5,000 units 11/22/16 22:00 11/23/16 09:09 Heparin SC 5,000 units Q12 CRISTOBAL Administration Propofol 100 mls @ 3.493 mls/hr 11/08/16 08:29 11/23/16 08:32 Diprivan IV 0 mcg/kg/min .Q24H PRN Titration TITRATE PER MD ORDER Protocol 5 MCG/KG/MIN Imipenem/Cilastatin Sodium 1, 250 mls @ 250 mls/hr 11/15/16 13:00 11/23/16 12: 18 000 mg/ Sodium Chloride IVPB 250 mls/hr Q8H CRISTOBAL Administration Vancomycin/Sodium Chloride 200 mls @ 166.6 mls/hr 11/19/16 10:00 11/23/16 09:35 Vancocin IVPB 166.6 mls/hr Q12H CRISTOBAL Administration Insulin Glargine 10 unit 11/22/16 22:45 11/22/16 23:18 Lantus SC 10 units HS CRISTOBAL Administration Insulin Human Regular 0 unit 11/17/16 08:38 11/23/16 12:17 Novolin R SC 4 unit Q6 CRISTOBAL Administration Protocol Methimazole 10 mg 11/18/16 10:00 11/23/16 14:42 Tapazole PO 10 mg TID CRISTOBAL Administration Methylprednisolone 10 mg 11/17/16 10:00 11/23/16 09:09 Solu-Medrol IVP 10 mg DAILY CRISTOBAL Administration Metoprolol Succinate 12.5 mg 11/16/16 10:30 11/23/16 09:08 Toprol Xl PO 12.5 mg DAILY CRISTOBAL Administration Pantoprazole Sodium 40 mg 11/23/16 10:00 11/23/16 09:09 Protonix Susp PO 40 mg DAILY CRISTOBAL Administration Vitamin A 1 ea 11/09/16 18:00 11/23/16 09:10 Vitamin A & D Oint Ud Foilpak TOP 1 ea BID CRISTOBAL Administration - Patient Studies Lab Studies: Lab Studies 11/23/16 11/23/16 11/23/16 Range/Units 16:37 11:33 06:21 WBC 7.1 (4.8-10.8) K/uL RBC 3.45 L (3.80-5.20) Mil/uL Hgb 9.8 L (11.0-16.0) g/dL Hct 31.2 L (34.0-47.0) % MCV 90.5 (81.0-99.0) fL MCH 28.4 (27.0-31.0) pg MCHC 31.4 L (33.0-37.0) g/dL RDW 15.1 H (11.5-14.5) % Plt Count 177 (130-400) K/uL MPV 8.9 (7.2-11.7) fL Neut % (Auto) 68.6 (50.0-75.0) % Lymph % (Auto) 22.0 (20.0-40.0) % [place] % (Auto) 7.3 (0.0-10.0) % Eos % (Auto) 1.7 (0.0-4.0) % Baso % (Auto) 0.4 (0.0-2.0) % Neut # 4.9 (1.8-7.0) K/uL Lymph # 1.6 (1.0-4.3) K/uL [place] # 0.5 (0.0-0.8) K/uL Eos # 0.1 (0.0-0.7) K/uL Baso # 0.0 (0.0-0.2) K/uL Puncture Site pCO2 (35-45) mm/Hg pO2 (80-100) mm/Hg HCO3 (21-28) mmol/L ABG pH (7.35-7.45) ABG Total CO2 (22-28) mmol/L ABG O2 Saturation (95-98) % ABG Base Excess (-2.0-3.0) mmol/L ABG Hemoglobin (11.7-17.4) g/dL ABG Carboxyhemoglobin (0.5-1.5) % POC ABG HHb (Measured) (0.0-5.0) % ABG Methemoglobin (0.0-3.0) % Chaz Test A-a O2 Difference mm/Hg Respiratory Index Hgb O2 Saturation (95.0-98.0) % Mechanical Rate FiO2 % Tidal Volume PEEP Sodium (132-148) mmol/L Potassium (3.6-5.2) mmol/L Chloride (98-107) mmol/L Carbon Dioxide (22-30) mmol/L Anion Gap (10-20) BUN (7-17) mg/dL Creatinine (0.7-1.2) MG/DL Est GFR ( Amer) Est GFR (Non-Af Amer) POC Glucose (mg/dL) 242 H (65-110) mg/dL Random Glucose (65-105) mg/dL Calcium (8.6-10.4) mg/dl Phosphorus (2.5-4.5) mg/dL Magnesium (1.6-2.3) mg/dL Total Bilirubin (0.2-1.3) mg/dL AST (14-36) U/L ALT (9-52) U/L Alkaline Phosphatase (38-126) U/L Total Protein (6.3-8.3) g/dL Albumin (3.5-5.0) g/dL Globulin (2.2-3.9) gm/dL Albumin/Globulin Ratio (1.0-2.1) Free T4 (0.78-2.19) ng/dL TSH 3rd Generation (0.46-4.68) mIU/L Random Vancomycin 15.29 ug/mL 11/23/16 11/23/16 11/23/16 Range/Units 06:17 05:57 04:20 WBC (4.8-10.8) K/uL RBC (3.80-5.20) Mil/uL Hgb (11.0-16.0) g/dL Hct (34.0-47.0) % MCV (81.0-99.0) fL MCH (27.0-31.0) pg MCHC (33.0-37.0) g/dL RDW (11.5-14.5) % Plt Count (130-400) K/uL MPV (7.2-11.7) fL Neut % (Auto) (50.0-75.0) % Lymph % (Auto) (20.0-40.0) % [place] % (Auto) (0.0-10.0) % Eos % (Auto) (0.0-4.0) % Baso % (Auto) (0.0-2.0) % Neut # (1.8-7.0) K/uL Lymph # (1.0-4.3) K/uL [place] # (0.0-0.8) K/uL Eos # (0.0-0.7) K/uL Baso # (0.0-0.2) K/uL Puncture Site Rr pCO2 43 (35-45) mm/Hg pO2 73 L (80-100) mm/Hg HCO3 33.5 H (21-28) mmol/L ABG pH 7.52 H (7.35-7.45) ABG Total CO2 36.4 H (22-28) mmol/L ABG O2 Saturation 97.7 (95-98) % ABG Base Excess 11.1 H (-2.0-3.0) mmol/L ABG Hemoglobin 12.0 (11.7-17.4) g/dL ABG Carboxyhemoglobin 2.0 H (0.5-1.5) % POC ABG HHb (Measured) 2.2 (0.0-5.0) % ABG Methemoglobin 1.1 (0.0-3.0) % Chaz Test Pos A-a O2 Difference 87.0 mm/Hg Respiratory Index 1.2 Hgb O2 Saturation 94.8 L (95.0-98.0) % Mechanical Rate 14 FiO2 30.0 % Tidal Volume 500 PEEP 5 Sodium 144 (132-148) mmol/L Potassium 3.8 (3.6-5.2) mmol/L Chloride 103 (98-107) mmol/L Carbon Dioxide 34 H (22-30) mmol/L Anion Gap 11 (10-20) BUN 27 H (7-17) mg/dL Creatinine 0.5 L (0.7-1.2) MG/DL Est GFR ( Amer) > 60 Est GFR (Non-Af Amer) > 60 POC Glucose (mg/dL) 245 H (65-110) mg/dL Random Glucose 203 H (65-105) mg/dL Calcium 7.9 L (8.6-10.4) mg/dl Phosphorus 2.5 (2.5-4.5) mg/dL Magnesium 2.1 (1.6-2.3) mg/dL Total Bilirubin 0.5 (0.2-1.3) mg/dL AST 14 (14-36) U/L ALT 19 (9-52) U/L Alkaline Phosphatase 56 (38-126) U/L Total Protein 4.6 L (6.3-8.3) g/dL Albumin 2.1 L (3.5-5.0) g/dL Globulin 2.6 (2.2-3.9) gm/dL Albumin/Globulin Ratio 0.8 L (1.0-2.1) Free T4 2.28 H (0.78-2.19) ng/dL TSH 3rd Generation < 0.02 L (0.46-4.68) mIU/L Random Vancomycin ug/mL 11/23/16 11/22/16 Range/Units 00:05 17:15 WBC (4.8-10.8) K/uL RBC (3.80-5.20) Mil/uL Hgb (11.0-16.0) g/dL Hct (34.0-47.0) % MCV (81.0-99.0) fL MCH (27.0-31.0) pg MCHC (33.0-37.0) g/dL RDW (11.5-14.5) % Plt Count (130-400) K/uL MPV (7.2-11.7) fL Neut % (Auto) (50.0-75.0) % Lymph % (Auto) (20.0-40.0) % [place] % (Auto) (0.0-10.0) % Eos % (Auto) (0.0-4.0) % Baso % (Auto) (0.0-2.0) % Neut # (1.8-7.0) K/uL Lymph # (1.0-4.3) K/uL [place] # (0.0-0.8) K/uL Eos # (0.0-0.7) K/uL Baso # (0.0-0.2) K/uL Puncture Site pCO2 (35-45) mm/Hg pO2 (80-100) mm/Hg HCO3 (21-28) mmol/L ABG pH (7.35-7.45) ABG Total CO2 (22-28) mmol/L ABG O2 Saturation (95-98) % ABG Base Excess (-2.0-3.0) mmol/L ABG Hemoglobin (11.7-17.4) g/dL ABG Carboxyhemoglobin (0.5-1.5) % POC ABG HHb (Measured) (0.0-5.0) % ABG Methemoglobin (0.0-3.0) % Chaz Test A-a O2 Difference mm/Hg Respiratory Index Hgb O2 Saturation (95.0-98.0) % Mechanical Rate FiO2 % Tidal Volume PEEP Sodium (132-148) mmol/L Potassium (3.6-5.2) mmol/L Chloride (98-107) mmol/L Carbon Dioxide (22-30) mmol/L Anion Gap (10-20) BUN (7-17) mg/dL Creatinine (0.7-1.2) MG/DL Est GFR ( Amer) Est GFR (Non-Af Amer) POC Glucose (mg/dL) 248 H 275 H (65-110) mg/dL Random Glucose (65-105) mg/dL Calcium (8.6-10.4) mg/dl Phosphorus (2.5-4.5) mg/dL Magnesium (1.6-2.3) mg/dL Total Bilirubin (0.2-1.3) mg/dL AST (14-36) U/L ALT (9-52) U/L Alkaline Phosphatase (38-126) U/L Total Protein (6.3-8.3) g/dL Albumin (3.5-5.0) g/dL Globulin (2.2-3.9) gm/dL Albumin/Globulin Ratio (1.0-2.1) Free T4 (0.78-2.19) ng/dL TSH 3rd Generation (0.46-4.68) mIU/L Random Vancomycin ug/mL Laboratory Results - last 24 hr 11/22/16 11/23/16 11/23/16 17:15 00:05 04:20 WBC RBC Hgb Hct MCV MCH MCHC RDW Plt Count MPV Neut % (Auto) Lymph % (Auto) [place] % (Auto) Eos % (Auto) Baso % (Auto) Neut # Lymph # [place] # Eos # Baso # Puncture Site Rr pCO2 43 pO2 73 L HCO3 33.5 H ABG pH 7.52 H ABG Total CO2 36.4 H ABG O2 Saturation 97.7 ABG Base Excess 11.1 H ABG Hemoglobin 12.0 ABG Carboxyhemoglobin 2.0 H POC ABG HHb (Measured) 2.2 ABG Methemoglobin 1.1 Chaz Test Pos A-a O2 Difference 87.0 Respiratory Index 1.2 Hgb O2 Saturation 94.8 L Mechanical Rate 14 FiO2 30.0 Tidal Volume 500 PEEP 5 Sodium Potassium Chloride Carbon Dioxide Anion Gap BUN Creatinine Est GFR ( Amer) Est GFR (Non-Af Amer) POC Glucose (mg/dL) 275 H 248 H Random Glucose Calcium Phosphorus Magnesium Total Bilirubin AST ALT Alkaline Phosphatase Total Protein Albumin Globulin Albumin/Globulin Ratio Free T4 TSH 3rd Generation Random Vancomycin 11/23/16 11/23/16 11/23/16 05:57 06:17 06:21 WBC 7.1 RBC 3.45 L Hgb 9.8 L Hct 31.2 L MCV 90.5 MCH 28.4 MCHC 31.4 L RDW 15.1 H Plt Count 177 MPV 8.9 Neut % (Auto) 68.6 Lymph % (Auto) 22.0 [place] % (Auto) 7.3 Eos % (Auto) 1.7 Baso % (Auto) 0.4 Neut # 4.9 Lymph # 1.6 [place] # 0.5 Eos # 0.1 Baso # 0.0 Puncture Site pCO2 pO2 HCO3 ABG pH ABG Total CO2 ABG O2 Saturation ABG Base Excess ABG Hemoglobin ABG Carboxyhemoglobin POC ABG HHb (Measured) ABG Methemoglobin Chaz Test A-a O2 Difference Respiratory Index Hgb O2 Saturation Mechanical Rate FiO2 Tidal Volume PEEP Sodium 144 Potassium 3.8 Chloride 103 Carbon Dioxide 34 H Anion Gap 11 BUN 27 H Creatinine 0.5 L Est GFR ( Amer) > 60 Est GFR (Non-Af Amer) > 60 POC Glucose (mg/dL) 245 H Random Glucose 203 H Calcium 7.9 L Phosphorus 2.5 Magnesium 2.1 Total Bilirubin 0.5 AST 14 ALT 19 Alkaline Phosphatase 56 Total Protein 4.6 L Albumin 2.1 L Globulin 2.6 Albumin/Globulin Ratio 0.8 L Free T4 2.28 H TSH 3rd Generation < 0.02 L Random Vancomycin 11/23/16 11/23/16 11:33 16:37 WBC RBC Hgb Hct MCV MCH MCHC RDW Plt Count MPV Neut % (Auto) Lymph % (Auto) [place] % (Auto) Eos % (Auto) Baso % (Auto) Neut # Lymph # [place] # Eos # Baso # Puncture Site pCO2 pO2 HCO3 ABG pH ABG Total CO2 ABG O2 Saturation ABG Base Excess ABG Hemoglobin ABG Carboxyhemoglobin POC ABG HHb (Measured) ABG Methemoglobin Chaz Test A-a O2 Difference Respiratory Index Hgb O2 Saturation Mechanical Rate FiO2 Tidal Volume PEEP Sodium Potassium Chloride Carbon Dioxide Anion Gap BUN Creatinine Est GFR ( Amer) Est GFR (Non-Af Amer) POC Glucose (mg/dL) 242 H Random Glucose Calcium Phosphorus Magnesium Total Bilirubin AST ALT Alkaline Phosphatase Total Protein Albumin Globulin Albumin/Globulin Ratio Free T4 TSH 3rd Generation Random Vancomycin 15.29 Assessment/Plan (1) Respiratory failure with hypoxia Current Visit: Yes Status: Acute Comment: Continue CPAP trial Still has copious secretions and does not follow commands Continue IV antibiotics and follow-up chest x-ray Bronchoscopy and bronchoalveolar lavage (2) Atrial fibrillation with rapid ventricular response Current Visit: Yes Status: Acute Attending/Attestation - Attestation I have personally seen and examined this patient.: Yes I have fully participated in the care of the patient.: Yes I have reviewed all pertinent clinical information: Yes Notes (Text): 11/23/16 17:11 patient seen and examined in the intensive care unit. case discussed with staff in the morning rounds. extubated after weaning trial postextubation patient developed stridor and respiratory distress and put on BiPAP with racemic epi Treatment and steroid continue antibiotics, bronchodilators and steroids and follow-up ABG
[2016-11-23] MEDS: Metoprolol Succinate 12.5 mg XL PO SCH (09:08)
[2016-11-23] MEDS: MethylPREDNISolone 40 mg Vial IVP SCH (09:09)
[2016-11-23] MEDS: Pantoprazole 40 mg Susp UD PO SCH (09:09)
[2016-11-23] MEDS: Vitamins A & D Oint UD Foilpak TOP SCH ×2 (09:10→17:42)
[2016-11-23] MEDS: Nystatin 100,000 Units/gm Cream(15 gm) TOP SCH ×2 (09:10→14:42)
[2016-11-23] MEDS: Vancomycin 1 gm/NS 200 ml 200 ML IVPB SCH ×2 (09:35→21:33)
[2016-11-23] MEDS ORDERED: Racepinephrine 2.25% Inhal Soln 0.5 ML UD INH ONE (10:40)
--- NOTE | 2016-11-23 10:44 | RAD ---
HISTORY: intubated COMPARISON: 11/22/2016 FINDINGS: LUNGS: Opacity at right lung base. Unchanged. PLEURA: Probable small bilateral pleural effusion. CARDIOVASCULAR: ET tube, NG tube and right IJ central venous catheter unchanged. No significant congestive change. OSSEOUS STRUCTURES: No significant abnormalities. VISUALIZED UPPER ABDOMEN: Normal. OTHER FINDINGS: None. IMPRESSION: Right basilar opacity. Probable small left pleural effusion. Lines and tubes unchanged.
--- NOTE | 2016-11-23 20:59 | CP.PCM.PN ---
Subjective - Date & Time of Evaluation Date of Evaluation: 11/23/16 Time of Evaluation: 20:55 - Subjective Subjective: uncontrolled & hyperthyroidism Objective - Vital Signs/Intake and Output Vital Signs (last 24 hours): Temp Pulse Resp BP Pulse Ox 98.2 F 95 H 20 145/62 96 11/23/16 19:55 11/23/16 19:24 11/23/16 19:01 11/23/16 19:01 11/23/16 19:01 Intake and Output: 11/23/16 11/24/16 18:59 06:59 Intake Total 1707 100 Output Total 665 190 Balance 1042 -90 - Medications Medications: Current Medications Acetaminophen (Tylenol 650mg/20.3ml Solution Ud) 650 mg GT Q6 PRN PRN Reason: Fever >100.4 F Last Admin: 11/16/16 08:59 Dose: 650 mg Amiodarone HCl (Cordarone) 200 mg PO Q8H [facility] Last Admin: 11/23/16 17:42 Dose: 200 mg Diltiazem HCl (Cardizem) 60 mg PO Q6 [facility] Last Admin: 11/23/16 17:42 Dose: 60 mg Heparin Sodium (Porcine) (Heparin) 5,000 units SC Q12 [facility] Last Admin: 11/23/16 09:09 Dose: 5,000 units Propofol (Diprivan) 100 mls @ 3.493 mls/hr IV .Q24H PRN; Protocol; 5 MCG/KG/MIN PRN Reason: TITRATE PER MD ORDER Last Titration: 11/23/16 08:32 Dose: 0 mcg/kg/min Imipenem/Cilastatin Sodium 1, (000 mg/ Sodium Chloride) 250 mls @ 250 mls/hr IVPB Q8H [facility] Last Admin: 11/23/16 20:16 Dose: 250 mls/hr Vancomycin/Sodium Chloride (Vancocin) 200 mls @ 166.6 mls/hr IVPB Q12H [facility] Last Admin: 11/23/16 09:35 Dose: 166.6 mls/hr Insulin Glargine (Lantus) 13 unit SC HS [facility] Insulin Human Regular (Novolin R) 0 unit SC Q6 [facility] PRN Reason: Protocol Last Admin: 11/23/16 17:42 Dose: 4 unit Methimazole (Tapazole) 10 mg PO TID [facility] Last Admin: 11/23/16 17:42 Dose: 10 mg Methylprednisolone (Solu-Medrol) 10 mg IVP DAILY [facility] Last Admin: 11/23/16 09:09 Dose: 10 mg Metoprolol Succinate (Toprol Xl) 12.5 mg PO DAILY [facility] Last Admin: 11/23/16 09:08 Dose: 12.5 mg Pantoprazole Sodium (Protonix Susp) 40 mg PO DAILY [facility] Last Admin: 11/23/16 09:09 Dose: 40 mg Vitamin A (Vitamin A & D Oint Ud Foilpak) 1 ea TOP BID [facility] Last Admin: 11/23/16 17:42 Dose: 1 ea - Labs Labs: 11/23/16 06:21 11/23/16 06:17 PT 12.0 SECONDS (9.7-12.2) 11/13/16 04:57 INR 1.1 11/13/16 04:57 APTT 38 SECONDS (21-34) H D 11/13/16 04:57 Assessment and Plan (1) Diabetes mellitus, insulin dependent (IDDM), uncontrolled Assessment & Plan: Assessment & Plan: Endocrine consult f/u reason for consult: uncontrolled diabetes source : chrart review , pt awake , alert with OGT tube for bleeding unable to give history & as per chart review poor historian is 61 y/o admitted for a fib with rapid venttirucular resonse & DKA / bilateral lower extremities cellulites ,pt was intubated & also started on insulin drip glucose on admission 1023 . also was started on steroid 40 mg po bid , endocrine was contacted yesterday 11/12 for uncontrolled IDDM glucose in 300- 400 & also pt with hyperthyroidism on tapazole , blood glucose log :240-270 , prednisone 10 mg qd pt. extubted , continuos feeding s/p steroids 125 mg dose today NO hypoglycemia Allergy NKDA Past medical history : HTN , pedal edema Past surgical history : not documented Psychiatry history : (+) psychiatry disorder Social history : (+)smoking , ETOH use , illicit drug use Family history : unknown ROS: Constitutional: no fever ,tiredness/weakness .HEENT: no earache, change in voice .Respiratory: no cough, sob . CVS :no chest pain, no palpitations . Abdomen : no abdominal pain, no nausea /vomiting , no change bowel movement . 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 Extremities : (+) edema , no tremors . Skin: no itching, no rash Physical exam Well developed intubated , on continuos feeding VSS HEENT: norm cephalic, atraumatic , no lid lag , no exophthalmos , mild stare NECK: supple, no palpable lymphadenopathy THYROID: unable to palpable thyroid , not tender CHEST: fair air entry, bilateral, CVS: S1,S2 , ABDOMEN: bowel sound present, benign, obese, no wide purple striae , no bruises EXTREMITIES: bilateral hyper pigmented skin with edema, clubbing or cyanosis, no palpable hand tremors Skin : acanthosis nigricans lab: 11/16 FT4 2.59 , tsh <0.02 , T4 8.88 , wbc 9 , LFT wnl thyroid antibodies (-) tsh < 0.02 ,ft4 2.31 , t4 12.1 , a1c 14 , wbc 10.4 Assessment uncontrolled IDDM steroids induced hyperglycemia hyperthyroidisim with afib , on cardiazem & lopressor bilateral cellutitis a fib bleeding /fever /sepsis obesity Plan - increase lantus @ 13 units @ hs first today continue humalin R low dose coverage q6h on tapazole 10 mg po tid monior thyroid function Status: Chronic (2) Hyperthyroidism Status: Chronic (3) Atrial fibrillation with rapid ventricular response Status: Acute (4) Bilateral lower leg cellulitis Status: Acute (5) Steroid-induced hyperglycemia Status: Acute
[2016-11-23] MEDS: (Lantus) Insulin Glargine, Recombinant SC SCH (22:45)
--- NOTE | 2016-11-24 00:08 | CP.PCM.PN ---
Subjective - Date & Time of Evaluation Date of Evaluation: 11/23/16 Time of Evaluation: 10:18 - Subjective Subjective: Pt is still on ventilator, MRSA in sputum, afebrile, on isolation, denies subjective fevers or chills, nausea, vomiting, diarrhea, dyspnea or headaches . Objective - Vital Signs/Intake and Output Vital Signs (last 24 hours): Temp Pulse Resp BP Pulse Ox 98.2 F 107 H 19 144/79 97 11/23/16 19:55 11/23/16 21:01 11/23/16 21:01 11/23/16 21:01 11/23/16 21:01 Intake and Output: 11/23/16 11/24/16 18:59 06:59 Intake Total 1707 150 Output Total 665 265 Balance 1042 -115 - Medications Medications: Current Medications Acetaminophen (Tylenol 650mg/20.3ml Solution Ud) 650 mg GT Q6 PRN PRN Reason: Fever >100.4 F Last Admin: 11/16/16 08:59 Dose: 650 mg Amiodarone HCl (Cordarone) 200 mg PO Q8H [facility] Last Admin: 11/23/16 17:42 Dose: 200 mg Diltiazem HCl (Cardizem) 60 mg PO Q6 [facility] Last Admin: 11/23/16 17:42 Dose: 60 mg Heparin Sodium (Porcine) (Heparin) 5,000 units SC Q12 [facility] Last Admin: 11/23/16 21:34 Dose: 5,000 units Propofol (Diprivan) 100 mls @ 3.493 mls/hr IV .Q24H PRN; Protocol; 5 MCG/KG/MIN PRN Reason: TITRATE PER MD ORDER Last Titration: 11/23/16 08:32 Dose: 0 mcg/kg/min Imipenem/Cilastatin Sodium 1, (000 mg/ Sodium Chloride) 250 mls @ 250 mls/hr IVPB Q8H [facility] Last Admin: 11/23/16 20:16 Dose: 250 mls/hr Vancomycin/Sodium Chloride (Vancocin) 200 mls @ 166.6 mls/hr IVPB Q12H [facility] Last Admin: 11/23/16 21:33 Dose: 166.6 mls/hr Insulin Glargine (Lantus) 13 unit SC HS [facility] Insulin Human Regular (Novolin R) 0 unit SC Q6 [facility] PRN Reason: Protocol Last Admin: 11/23/16 17:42 Dose: 4 unit Methimazole (Tapazole) 10 mg PO TID [facility] Last Admin: 11/23/16 17:42 Dose: 10 mg Methylprednisolone (Solu-Medrol) 10 mg IVP DAILY [facility] Last Admin: 11/23/16 09:09 Dose: 10 mg Metoprolol Succinate (Toprol Xl) 12.5 mg PO DAILY [facility] Last Admin: 11/23/16 09:08 Dose: 12.5 mg Pantoprazole Sodium (Protonix Susp) 40 mg PO DAILY [facility] Last Admin: 11/23/16 09:09 Dose: 40 mg Vitamin A (Vitamin A & D Oint Ud Foilpak) 1 ea TOP BID [facility] Last Admin: 11/23/16 17:42 Dose: 1 ea - Labs Labs: 11/23/16 06:21 11/23/16 06:17 PT 12.0 SECONDS (9.7-12.2) 11/13/16 04:57 INR 1.1 11/13/16 04:57 APTT 38 SECONDS (21-34) H D 11/13/16 04:57 - Constitutional Appears: No Acute Distress - Head Exam Head Exam: ATRAUMATIC, NORMAL INSPECTION, NORMOCEPHALIC - Eye Exam Eye Exam: EOMI, Normal appearance, PERRL Pupil Exam: NORMAL ACCOMODATION, PERRL - Respiratory Exam Respiratory Exam: Clear to Ausculation Bilateral, NORMAL BREATHING PATTERN - Cardiovascular Exam Cardiovascular Exam: REGULAR RHYTHM, +S1, +S2. absent: Murmur - GI/Abdominal Exam GI & Abdominal Exam: Soft, Normal Bowel Sounds. absent: Tenderness Assessment and Plan (1) Diabetes Status: Chronic (2) HTN (hypertension) Status: Chronic (3) Bilateral lower leg cellulitis Status: Deleted (4) Atrial fibrillation with rapid ventricular response Status: Acute (5) CHF (congestive heart failure) Status: Acute (6) Pleural effusion Status: Acute - Assessment and Plan (Free Text) Plan: attempt weaning monitor pt continue current medications
[2016-11-24] MEDS: (Novolin R) Insulin Human Regular 100 units/ml vial SC SCH ×4 (01:45→17:55)
[2016-11-24 06:09] LABS: BASO % 0.1 % (0.0-2.0); HEMATOCRIT 34.1 % (34.0-47.0); LYMPH # 0.7 K/uL (1.0-4.3); LYMPH % 9.7 % (20.0-40.0); MEAN CELL VOLUME 89.5 fL (81.0-99.0); MEAN CORPUSCULAR HEMOGLOBIN 28.9 pg (27.0-31.0); MEAN CORPUSCULAR HGB CONC 32.3 g/dL (33.0-37.0); MEAN PLATELET VOLUME 8.9 fL (7.2-11.7); MONO # 0.4 K/uL (0.0-0.8); MONO % 5.7 % (0.0-10.0); PLATELET COUNT 204 K/uL (130-400); RED CELL DISTRIBUTION WIDTH 14.9 % (11.5-14.5); WHITE BLOOD COUNT 7.5 K/uL (4.8-10.8)
[2016-11-24 06:19] LABS: CHLORIDE 105 mmol/L (98-107); POTASSIUM 4.1 mmol/L (3.6-5.2); SODIUM 143 mmol/L (132-148)
[2016-11-24 06:21] LABS: BILIRUBIN,TOTAL 0.9 mg/dL (0.2-1.3); GFR AFRICAN-AMERICAN > 60
[2016-11-24 06:22] LABS: ALKALINE PHOSPHATASE 66 U/L (38-126); ALT/SGPT 24 U/L (9-52); AST/SGOT 13 U/L (14-36); BLOOD UREA NITROGEN 30 mg/dL (7-17); CARBON DIOXIDE 31 mmol/L (22-30); GLUCOSE,RANDOM 244 mg/dL (65-105); PHOSPHOROUS 3.2 mg/dL (2.5-4.5); TOTAL PROTEIN 5.4 g/dL (6.3-8.3)
[2016-11-24 06:23] LABS: CALCIUM 8.3 mg/dl (8.6-10.4); MAGNESIUM 2.1 mg/dL (1.6-2.3)
[2016-11-24 06:26] LABS: ALB/GLOB RATIO 0.9 (1.0-2.1)
[2016-11-24 08:24] LABS: NEUTROPHIL 83 % (50-75); TOTAL CELLS COUNTED 100
[2016-11-24] MEDS: MethylPREDNISolone 40 mg Vial IVP SCH (09:47)
[2016-11-24] MEDS: Pantoprazole 40 mg Susp UD PO SCH (09:48)
[2016-11-24] MEDS: Vitamins A & D Oint UD Foilpak TOP SCH ×2 (09:48→17:56)
[2016-11-24] MEDS: Metoprolol Succinate 12.5 mg XL PO SCH (09:49)
[2016-11-24] MEDS: Vancomycin 1 gm/NS 200 ml 200 ML IVPB SCH ×2 (09:50→23:05)
--- NOTE | 2016-11-24 09:57 | CP.PCM.PN ---
Subjective - Date & Time of Evaluation Date of Evaluation: 11/24/16 Time of Evaluation: 08:00 - Subjective Subjective: Patient seen and examined in the intensive care unit. Extubated yesterday and placed on BiPAP for respiratory distress now breathing comfortably Available does not follow commands Afebrile Objective - Vital Signs/Intake and Output Vital Signs (last 24 hours): Temp Pulse Resp BP Pulse Ox 98.9 F 90 21 155/62 H 99 11/24/16 08:00 11/24/16 08:18 11/24/16 08:00 11/24/16 08:00 11/24/16 08:00 Intake and Output: 11/24/16 11/24/16 06:59 18:59 Intake Total 1950 300 Output Total 725 135 Balance 1225 165 - Medications Medications: Current Medications Acetaminophen (Tylenol 650mg/20.3ml Solution Ud) 650 mg GT Q6 PRN PRN Reason: Fever >100.4 F Last Admin: 11/16/16 08:59 Dose: 650 mg Amiodarone HCl (Cordarone) 200 mg PO Q8H [facility] Last Admin: 11/24/16 09:49 Dose: 200 mg Diltiazem HCl (Cardizem) 60 mg PO Q6 [facility] Last Admin: 11/24/16 05:22 Dose: 60 mg Heparin Sodium (Porcine) (Heparin) 5,000 units SC Q12 [facility] Last Admin: 11/24/16 09:48 Dose: 5,000 units Propofol (Diprivan) 100 mls @ 3.493 mls/hr IV .Q24H PRN; Protocol; 5 MCG/KG/MIN PRN Reason: TITRATE PER MD ORDER Last Titration: 11/23/16 08:32 Dose: 0 mcg/kg/min Imipenem/Cilastatin Sodium 1, (000 mg/ Sodium Chloride) 250 mls @ 250 mls/hr IVPB Q8H [facility] Last Admin: 11/24/16 04:15 Dose: 250 mls/hr Vancomycin/Sodium Chloride (Vancocin) 200 mls @ 166.6 mls/hr IVPB Q12H [facility] Last Admin: 11/24/16 09:50 Dose: 166.6 mls/hr Insulin Glargine (Lantus) 13 unit SC HS [facility] Last Admin: 11/23/16 22:45 Dose: 13 u Insulin Human Regular (Novolin R) 0 unit SC Q6 [facility] PRN Reason: Protocol Last Admin: 11/24/16 05:35 Dose: 6 unit Methimazole (Tapazole) 10 mg PO TID [facility] Last Admin: 11/24/16 09:49 Dose: 10 mg Methylprednisolone (Solu-Medrol) 10 mg IVP DAILY [facility] Last Admin: 11/24/16 09:47 Dose: 10 mg Metoprolol Succinate (Toprol Xl) 12.5 mg PO DAILY [facility] Last Admin: 11/24/16 09:49 Dose: 12.5 mg Pantoprazole Sodium (Protonix Susp) 40 mg PO DAILY [facility] Last Admin: 11/24/16 09:48 Dose: 40 mg Vitamin A (Vitamin A & D Oint Ud Foilpak) 1 ea TOP BID [facility] Last Admin: 11/24/16 09:48 Dose: 1 ea - Labs Labs: 11/24/16 05:54 11/24/16 05:54 PT 12.0 SECONDS (9.7-12.2) 11/13/16 04:57 INR 1.1 11/13/16 04:57 APTT 38 SECONDS (21-34) H D 11/13/16 04:57 - Head Exam Head Exam: ATRAUMATIC, NORMOCEPHALIC - Eye Exam Eye Exam: Normal appearance - ENT Exam ENT Exam: Mucous Membranes Moist - Neck Exam Neck Exam: Normal Inspection - Respiratory Exam Respiratory Exam: Decreased Breath Sounds - Cardiovascular Exam Cardiovascular Exam: Irregular Rhythm - GI/Abdominal Exam GI & Abdominal Exam: Soft, Normal Bowel Sounds - Extremities Exam Extremities Exam: Pedal Edema - Neurological Exam Neurological Exam: Awake Assessment and Plan (1) Respiratory failure with hypoxia Assessment & Plan: Continue BiPAP as needed Continue antibiotics for pneumonia Swallowing eval Status: Acute (2) Atrial fibrillation with rapid ventricular response Status: Acute
--- NOTE | 2016-11-24 11:21 | CP.CCUPN ---
<Eloina Allen - Last Filed: 11/24/16 16:00> CCU Subjective - Physician Review Subjective (Free Text): 11/08/16 13:06 Pt seen in mild distress requiring intubation. Two large pieces of dried mucus were extracted from the patient's throat obstructing vocal cords. Patient intubated. TLC line was also placed to ensure better IV access. As there is no power of employee benefits attorney or legal guardian, an administrative consent was obtained for central line. An ROS could not be obtained at this time because patient is intubated and sedated. 11/09/16 13:15 Patient seen at beside intubated and sedated. GCS 8T (FiO2 60 PEEP 5 VT 500 RR 16). No acute events overnight per nursing. A fib is rate controlled. Patient is stable. New vent settings after rounds PRVC (FiO2 60, PEEP 5, RR 12 VT 500). ROS couldn't be obtained because patient is intubated and sedated. 11/10/16 16:50 Pt seen and examined in no acute distress. Patient spiked a fever during overnight shift which initially responded to Tylenol and later returned during the morning shift. Patient administered tylenol and cooling blankets. Patient underwent thoracentesis for pleural effusion. Tolerated procedure well. Patient is rate controlled. ROS couldn't be obtained because patient is intubated and sedated. 11/11/16 8:34 Pt seen and examined in no acute distress. Patient seen at beside intubated and sedated. (FiO2 50 PEEP 5 RR 14 VT 500). Patient is awake, but does not follow commands. Patient has low grade fever this morning (T max 100.2, T 99.0-100.2). A fib is rate controlled. Patient is stable. ROS couldn't be obtained because patient was intubated and sedated at the time of evaluation 11/14/16 15:35 Patient seen at bedside in no acute distress. Patient intubated with vent settings of FiO2 50%, RR 14, PEEP 5, TV 500% and is saturating well at 100%. GCS 10T (E4 VT M6). Patient's last dose of propofol was given 11/12. Patient opens eyes spontaneously and moves extremities on her own. CPAP trial was done after morning rounds. Patient was tachycardic prior to morning rounds, but is currently rate controlled. Patient is stable. Patient spiked a fever overnight and is currently having a low grade fever (T max 101.1, T current 99.3). ROS could not be obtained because patient is intubated at time of evaluation. Over the weekend, NGT removed and replaced with OGT with Afrin spray in nose bilaterally. Right sided nasal packing inserted where NGT had been. 11/15/16 15:39 Patient seen at bedside in no acute distress. Patient intubated with vent settings of FiO2 50%, RR 14, PEEP 5, TV 500% and is saturating well at 100%. GCS 10T (E4 VT M6). Patient's last dose of propofol was given 11/12. Patient opens eyes spontaneously and moves extremities on her own. Patient is stable but still lethargic. Patient spiked a fever overnight and has normal temperature now (T max 101, T current 98.4). ROS could not be obtained because patient is intubated and lethargic at time of evaluation. 11/16/16 13:09 Patient seen at bedside in no acute distress. Patient intubated with vent settings of FiO2 50%, RR 14, PEEP 5, TV 500% and is saturating well at 100%. Patient is stable but still lethargic. Patient spiked a fever overnight and has normal temperature now (T max 101.4, T current 101.3). ROS could not be obtained because patient is intubated at time of evaluation. 11/18/16 20:33 Pt seen and examined in no acute distress. Patient intubated but tolerating CPAP trial. Patient opens eyes spontaneously and moves extremities on her own. Patient is stable but moderately lethargic. Patient afebrile overnight. ROS could not be obtained because patient is intubated at time of evaluation. 11/21/16 14:44 Pt seen and examined in no acute distress. No significant events overnight per nursing. Patient alert and restless currently though intermittently somnolent. Patient gestured that she would like the tube out. At this time, patient not able to comply to an ROS. 11/22/16 12:17 Pt seen and examined in no acute distress. No significant events overnight per nursing. Patient less alert today . At this time, patient not able to comply to an ROS. 11/23/16 15:04 Pt seen and examined s/p extubation. Patient had moderate secretions which were suctioned. Patient alert and mildly agitated but tolerant. At this time, denies subjective fevers or chills, nausea, vomiting, diarrhea, dyspnea or headaches . 11/24/16 16:01 Pt s/p extubation in no acute distress. Patient on BiPAP therapy. No acute events overnight. Patient intermittently drowsy but arousable. Patient denies subjective fevers or chills, nausea,vomiting, diarrhea or constipation at this time. CCU Objective - Vital Signs / Intake & Output Vital Signs (Last 4 hours): Vital Signs Temp Pulse Resp BP Pulse Ox 11/24/16 11:00 77 18 143/67 100 11/24/16 10:54 82 11/24/16 10:00 86 18 163/87 H 100 11/24/16 09:00 88 19 155/60 H 100 11/24/16 08:18 90 11/24/16 08:00 98.9 F 81 21 155/62 H 99 Intake and Output (Last 8hrs): Intake & Output 11/23/16 11/24/16 11/24/16 22:59 06:59 14:59 Intake Total 1000 1400 650 Output Total 550 430 245 Balance 450 970 405 Weight 254 lb 6.615 oz Intake: Intake, IV Amount 100 450 200 Right Distal Port 200 Right Medial Port 100 450 Internal Jugular Tube Feeding 400 450 200 Other 500 500 250 Output: Urine 550 430 245 Urethral (Hemphill) 550 430 245 Other: # Bowel Movements 1 - Physical Exam Head: Positive for: Atraumatic, Normocephalic Pupils: Positive for: PERRL. Negative for: Sluggish, Non-Reactive Extroacular Muscles: Positive for: EOMI. Negative for: Gaze Palsy Conjunctiva: Positive for: Normal. Negative for: Injected, Icteric Mouth: Positive for: Moist Mucous Membranes Neck: Positive for: Normal Range of Motion, Trachea Midline. Negative for: Meningeal Signs, MIDLINE TENDERNESS, Paraspinal Tenderness, JVD, Lymphadenopathy , Bruit, Other Respiratory/Chest: Positive for: Good Air Exchange. Negative for: Rales Cardiovascular: Positive for: Irregular Rhythm, Peripheal Pulses Present. Negative for: Murmurs, Normal S1, S2 Abdomen: Negative for: Tenderness, Distention Upper Extremity: Positive for: Normal Inspection Lower Extremity: Positive for: Edema Neurological: Negative for: Speech Normal Skin: Positive for: Warm, Dry, Rashes Psychiatric: Positive for: Alert, Normal Affect, Normal Mood - Medications Active Medications: Active Medications Generic Name Dose Route Start Last Admin Trade Name F[place]arilia PRN Reason Stop Dose Admin Acetaminophen 650 mg 11/14/16 20:10 11/16/16 08:59 Tylenol 650mg/20.3ml Solution Ud GT 650 mg Q6 PRN Administration Fever >100.4 F Amiodarone HCl 200 mg 11/15/16 18:00 11/24/16 09:49 Cordarone PO 200 mg Q8H CRISTOBAL Administration Budesonide 0.25 mg 11/24/16 20:00 Pulmicort Respules INH RQ12 CRISTOBAL Diltiazem HCl 60 mg 11/15/16 12:00 11/24/16 05:22 Cardizem PO 60 mg Q6 CRISTOBAL Administration Heparin Sodium (Porcine) 5,000 units 11/22/16 22:00 11/24/16 09:48 Heparin SC 5,000 units Q12 CRISTOBAL Administration Imipenem/Cilastatin Sodium 1, 250 mls @ 250 mls/hr 11/15/16 13:00 11/24/16 04: 15 000 mg/ Sodium Chloride IVPB 11/29/16 23:59 250 mls/hr Q8H CRISTOBAL Administration Vancomycin/Sodium Chloride 200 mls @ 166.6 mls/hr 11/19/16 10:00 11/24/16 09:50 Vancocin IVPB 12/03/16 22:00 166.6 mls/hr Q12H CRISTOBAL Administration Insulin Glargine 13 unit 11/23/16 22:00 11/23/16 22:45 Lantus SC 13 u HS CRISTOBAL Administration Insulin Human Regular 0 unit 11/17/16 08:38 11/24/16 05:35 Novolin R SC 6 unit Q6 CRISTOBAL Administration Protocol Methimazole 10 mg 11/18/16 10:00 11/24/16 09:49 Tapazole PO 10 mg TID CRISTOBAL Administration Metoprolol Succinate 12.5 mg 11/16/16 10:30 11/24/16 09:49 Toprol Xl PO 12.5 mg DAILY CRISTOBAL Administration Pantoprazole Sodium 40 mg 11/23/16 10:00 11/24/16 09:48 Protonix Susp PO 40 mg DAILY CRISTOBAL Administration Tiotropium Quincy 18 mcg 11/25/16 08:00 Spiriva INH RQ24 CRISTOBAL Vitamin A 1 ea 11/09/16 18:00 11/24/16 09:48 Vitamin A & D Oint Ud Foilpak TOP 1 ea BID CRISTOBAL Administration - Patient Studies Lab Studies: Lab Studies 11/24/16 11/24/16 11/23/16 Range/Units 05:54 05:28 23:36 WBC 7.5 (4.8-10.8) K/uL RBC 3.82 (3.80-5.20) Mil/uL Hgb 11.0 (11.0-16.0) g/dL Hct 34.1 (34.0-47.0) % MCV 89.5 (81.0-99.0) fL MCH 28.9 (27.0-31.0) pg MCHC 32.3 L (33.0-37.0) g/dL RDW 14.9 H (11.5-14.5) % Plt Count 204 (130-400) K/uL MPV 8.9 (7.2-11.7) fL Neut % (Auto) 84.5 H (50.0-75.0) % Lymph % (Auto) 9.7 L (20.0-40.0) % [place] % (Auto) 5.7 (0.0-10.0) % Eos % (Auto) 0.0 (0.0-4.0) % Baso % (Auto) 0.1 (0.0-2.0) % Neut # 6.3 (1.8-7.0) K/uL Lymph # 0.7 L (1.0-4.3) K/uL [place] # 0.4 (0.0-0.8) K/uL Eos # 0.0 (0.0-0.7) K/uL Baso # 0.0 (0.0-0.2) K/uL Neutrophils % (Manual) 83 H (50-75) % Band Neutrophils % 1 (0-2) % Lymphocytes % (Manual) 10 L (20-40) % Monocytes % (Manual) 6 (0-10) % Platelet Estimate Normal (NORMAL) Polychromasia Slight Hypochromasia (manual) Slight Poikilocytosis (manual Slight Anisocytosis (manual) Slight Ovalocytes Slight Sodium 143 (132-148) mmol/L Potassium 4.1 (3.6-5.2) mmol/L Chloride 105 (98-107) mmol/L Carbon Dioxide 31 H (22-30) mmol/L Anion Gap 11 (10-20) BUN 30 H (7-17) mg/dL Creatinine 0.5 L (0.7-1.2) MG/DL Est GFR ( Amer) > 60 Est GFR (Non-Af Amer) > 60 POC Glucose (mg/dL) 265 H 283 H (65-110) mg/dL Random Glucose 244 H (65-105) mg/dL Calcium 8.3 L (8.6-10.4) mg/dl Phosphorus 3.2 (2.5-4.5) mg/dL Magnesium 2.1 (1.6-2.3) mg/dL Total Bilirubin 0.9 (0.2-1.3) mg/dL AST 13 L (14-36) U/L ALT 24 (9-52) U/L Alkaline Phosphatase 66 (38-126) U/L Total Protein 5.4 L (6.3-8.3) g/dL Albumin 2.5 L (3.5-5.0) g/dL Globulin 2.9 (2.2-3.9) gm/dL Albumin/Globulin Ratio 0.9 L (1.0-2.1) Random Vancomycin ug/mL 11/23/16 11/23/16 11/23/16 Range/Units 17:32 16:37 11:33 WBC (4.8-10.8) K/uL RBC (3.80-5.20) Mil/uL Hgb (11.0-16.0) g/dL Hct (34.0-47.0) % MCV (81.0-99.0) fL MCH (27.0-31.0) pg MCHC (33.0-37.0) g/dL RDW (11.5-14.5) % Plt Count (130-400) K/uL MPV (7.2-11.7) fL Neut % (Auto) (50.0-75.0) % Lymph % (Auto) (20.0-40.0) % [place] % (Auto) (0.0-10.0) % Eos % (Auto) (0.0-4.0) % Baso % (Auto) (0.0-2.0) % Neut # (1.8-7.0) K/uL Lymph # (1.0-4.3) K/uL [place] # (0.0-0.8) K/uL Eos # (0.0-0.7) K/uL Baso # (0.0-0.2) K/uL Neutrophils % (Manual) (50-75) % Band Neutrophils % (0-2) % Lymphocytes % (Manual) (20-40) % Monocytes % (Manual) (0-10) % Platelet Estimate (NORMAL) Polychromasia Hypochromasia (manual) Poikilocytosis (manual Anisocytosis (manual) Ovalocytes Sodium (132-148) mmol/L Potassium (3.6-5.2) mmol/L Chloride (98-107) mmol/L Carbon Dioxide (22-30) mmol/L Anion Gap (10-20) BUN (7-17) mg/dL Creatinine (0.7-1.2) MG/DL Est GFR ( Amer) Est GFR (Non-Af Amer) POC Glucose (mg/dL) 222 H 242 H (65-110) mg/dL Random Glucose (65-105) mg/dL Calcium (8.6-10.4) mg/dl Phosphorus (2.5-4.5) mg/dL Magnesium (1.6-2.3) mg/dL Total Bilirubin (0.2-1.3) mg/dL AST (14-36) U/L ALT (9-52) U/L Alkaline Phosphatase (38-126) U/L Total Protein (6.3-8.3) g/dL Albumin (3.5-5.0) g/dL Globulin (2.2-3.9) gm/dL Albumin/Globulin Ratio (1.0-2.1) Random Vancomycin 15.29 ug/mL Laboratory Results - last 24 hr 11/23/16 11/23/16 11/23/16 11:33 16:37 17:32 WBC RBC Hgb Hct MCV MCH MCHC RDW Plt Count MPV Neut % (Auto) Lymph % (Auto) [place] % (Auto) Eos % (Auto) Baso % (Auto) Neut # Lymph # [place] # Eos # Baso # Neutrophils % (Manual) Band Neutrophils % Lymphocytes % (Manual) Monocytes % (Manual) Platelet Estimate Polychromasia Hypochromasia (manual) Poikilocytosis (manual Anisocytosis (manual) Ovalocytes Sodium Potassium Chloride Carbon Dioxide Anion Gap BUN Creatinine Est GFR ( Amer) Est GFR (Non-Af Amer) POC Glucose (mg/dL) 242 H 222 H Random Glucose Calcium Phosphorus Magnesium Total Bilirubin AST ALT Alkaline Phosphatase Total Protein Albumin Globulin Albumin/Globulin Ratio Random Vancomycin 15.29 11/23/16 11/24/16 11/24/16 23:36 05:28 05:54 WBC 7.5 RBC 3.82 Hgb 11.0 Hct 34.1 MCV 89.5 MCH 28.9 MCHC 32.3 L RDW 14.9 H Plt Count 204 MPV 8.9 Neut % (Auto) 84.5 H Lymph % (Auto) 9.7 L [place] % (Auto) 5.7 Eos % (Auto) 0.0 Baso % (Auto) 0.1 Neut # 6.3 Lymph # 0.7 L [place] # 0.4 Eos # 0.0 Baso # 0.0 Neutrophils % (Manual) 83 H Band Neutrophils % 1 Lymphocytes % (Manual) 10 L Monocytes % (Manual) 6 Platelet Estimate Normal Polychromasia Slight Hypochromasia (manual) Slight Poikilocytosis (manual Slight Anisocytosis (manual) Slight Ovalocytes Slight Sodium 143 Potassium 4.1 Chloride 105 Carbon Dioxide 31 H Anion Gap 11 BUN 30 H Creatinine 0.5 L Est GFR ( Amer) > 60 Est GFR (Non-Af Amer) > 60 POC Glucose (mg/dL) 283 H 265 H Random Glucose 244 H Calcium 8.3 L Phosphorus 3.2 Magnesium 2.1 Total Bilirubin 0.9 AST 13 L ALT 24 Alkaline Phosphatase 66 Total Protein 5.4 L Albumin 2.5 L Globulin 2.9 Albumin/Globulin Ratio 0.9 L Random Vancomycin Fingerstick Blood Sugar Results: 265 Review of Systems - Review of Systems Review of Systems: see subjective Assessment/Plan - Assessment and Plan (Free Text) Assessment: 61 F with history of hyperthyroidism, admitted to ED for hyperglycemia, altered mental status, and a-fib. Patient was admitted to ICU for treatment of DKA and patient continues to be monitored in the ICU. Patient's ventilatory status improved tolerating CPAP trial. Patient is s/p therapeutic bronchoscopy 3/28, , 11/18. Pt tolerated well. Extubated 11/23/16. Plan: Neuro: Drowsy at times, but arousable. Neurochecks Q4 Cardiovascular: Imagin/26 CT soft tissue neck: no significant evidence of lymphadenopathy, moderately enlarged ET and NG tube. 11/13 CT Lower extremity: soft tissue swelling/stranding suggestive of cellulitis. No evidence of abscess. 11/13 CTA of chest/abdomen/pelvis: suspicious mass lesion at right kidney midpole 4.2 x 4.5. Moderate enlargement of bilateral adrenal gland with right > left. Low attenuation nodules. increase in size of left pleural effusion since pervious study. complete collapse of left lower lobe. 2.8 cm low-attenuation lesion at anterior upper portion of spleen. foci of cortical irregularity and lucency in spine and right ribs. cardiomegaly 11/10 Duplex scan lower extremity artery: no evidence of deep or superficial vein thrombosis of Right and Left lower extremity. 11/09 Echocardiogram: LVEF 65%, elevated diastolic filling pressures. 11/04 EKG: atrial fibrillation with RVR, PVCs @ 153 bpm 11/17 CT Surgery consult - - no surgical intervention needed at time time Metoprolol 2.5 mg IVP Q6H CRISTOBAL Acetazolamide 500 mg IV Q8 CRISTOBAL Amiodarone HCl 200 mg PO TID Diltiazem 60 mg PO Q6 CRISTOBAL Pulmonary: F/U ABG BiPAP 50% to be decreased to 40% Patient tolerated CPAP trial. Extubated 11/23. On BIPAP. Monitor CXR 11/21: Moderate to severe venous congestion with prominent bibasilar airspace opacities and moderate bilateral pleural effusions DC Solumedrol 10 mg IVP daily s/p therapeutic bronch 11/15, 11/16, 11/18 - improved secretions. Endo: HHS Diabetes - uncontrolled History of Hyperthyroidism T4 2.59 TSH <0.02 Methimazole 10 mg PO BID CRSITOBAL Novolin R 0 unit SC Q6H CRISTOBAL Lantus 10 units SC HS Accucheck Q6 ACHS Hyperglycemia- steroids component as well tho patient needs better control GI: Fluid differential Pathologist review - few sheets of reactive mesothelial cells. scattered lymphocytes, macrophages, and RBCs negative for malignant cells. mildly inflamed pleural fluid negative for malignant cells. Daily CMP Senna/Docusate 50 mg - 8.6 mg 1 tab PO BID Vitamin A & D oint UD foilpak 1 ea TOP BID CRISTOBAL : Monitor I/Os Maintain Hemphill care Nephro: 250cc Q6H free water flushes BUN/Cr: Improving Monitor I/Os Daily CMP Heme: H&H stable Daily CBC ID: WBC stable MRSA bronchial culture Daily CBC Nystatin TOP TID CRISTOBAL Acetaminophen 650 mg GA Q6 PRN temperature >101 F. Stop dates in place. Vancomycin 1500 mg, 500 cc @ 250 cc/hr IVPB Q12H. Stop dates in place Imipenem/Cilastatin 1 Gm 250 cc @ 250 cc/hr IVPB Q8H CRISTOBAL Vanco trough 11/16 16.1. F/U random vanco level Prophylaxis: DVT: SCDs, Heparin SC Q12 GI: Protonix 40 mg IVP daily CRISTOBAL <Andrew Plaza - Last Filed: 11/24/16 16:56> CCU Objective - Vital Signs / Intake & Output Vital Signs (Last 4 hours): Vital Signs Temp Pulse Resp BP Pulse Ox 11/24/16 16:15 82 11/24/16 16:00 98.4 F 76 16 145/73 95 11/24/16 15:00 92 H 19 143/67 97 11/24/16 14:00 84 20 137/59 L 97 11/24/16 13:00 75 17 126/56 L 98 Intake and Output (Last 8hrs): Intake & Output 11/24/16 11/24/16 11/24/16 06:59 14:59 22:59 Intake Total 1400 1300 100 Output Total 430 485 110 Balance 970 815 -10 Weight 254 lb 6.615 oz Intake: Intake, IV Amount 450 450 Right Distal Port 450 Right Medial Port 450 Internal Jugular Tube Feeding 450 350 100 Other 500 500 Output: Urine 430 485 110 Urethral ([place]ill) 430 485 110 - Medications Active Medications: Active Medications Generic Name Dose Route Start Last Admin Trade Name Freq PRN Reason Stop Dose Admin Acetaminophen 650 mg 11/14/16 20:10 11/16/16 08:59 Tylenol 650mg/20.3ml Solution Ud GT 650 mg Q6 PRN Administration Fever >100.4 F Amiodarone HCl 200 mg 11/15/16 18:00 11/24/16 09:49 Cordarone PO 200 mg Q8H CRISTOBAL Administration Budesonide 0.25 mg 11/24/16 20:00 Pulmicort Respules INH RQ12 CRISTOBAL Diltiazem HCl 60 mg 11/15/16 12:00 11/24/16 11:52 Cardizem PO 60 mg Q6 CRISTOBAL Administration Heparin Sodium (Porcine) 5,000 units 11/22/16 22:00 11/24/16 09:48 Heparin SC 5,000 units Q12 CRISTOBAL Administration Imipenem/Cilastatin Sodium 1, 250 mls @ 250 mls/hr 11/15/16 13:00 11/24/16 12: 01 000 mg/ Sodium Chloride IVPB 11/29/16 23:59 250 mls/hr Q8H CRISTOBAL Administration Vancomycin/Sodium Chloride 200 mls @ 166.6 mls/hr 11/19/16 10:00 11/24/16 09:50 Vancocin IVPB 12/03/16 22:00 166.6 mls/hr Q12H CRISTOBAL Administration Insulin Glargine 13 unit 11/23/16 22:00 11/23/16 22:45 Lantus SC 13 u HS CRISTOBAL Administration Insulin Human Regular 0 unit 11/17/16 08:38 11/24/16 12:00 Novolin R SC 6 unit Q6 CRISTOBAL Administration Protocol Methimazole 10 mg 11/18/16 10:00 11/24/16 14:19 Tapazole PO 10 mg TID CRISTOBAL Administration Metoprolol Succinate 12.5 mg 11/16/16 10:30 11/24/16 09:49 Toprol Xl PO 12.5 mg DAILY CRISTOBAL Administration Pantoprazole Sodium 40 mg 11/23/16 10:00 11/24/16 09:48 Protonix Susp PO 40 mg DAILY CRISTOBAL Administration Tiotropium [place] 18 mcg 11/25/16 08:00 Spiriva INH RQ24 CRISTOBAL Vitamin A 1 ea 11/09/16 18:00 11/24/16 09:48 Vitamin A & D Oint Ud Foilpak TOP 1 ea BID CRISTOBAL Administration - Patient Studies Lab Studies: Lab Studies 11/24/16 11/24/16 11/24/16 Range/Units 12:12 11:56 05:54 WBC 7.5 (4.8-10.8) K/uL RBC 3.82 (3.80-5.20) Mil/uL Hgb 11.0 (11.0-16.0) g/dL Hct 34.1 (34.0-47.0) % MCV 89.5 (81.0-99.0) fL MCH 28.9 (27.0-31.0) pg MCHC 32.3 L (33.0-37.0) g/dL RDW 14.9 H (11.5-14.5) % Plt Count 204 (130-400) K/uL MPV 8.9 (7.2-11.7) fL Neut % (Auto) 84.5 H (50.0-75.0) % Lymph % (Auto) 9.7 L (20.0-40.0) % [place] % (Auto) 5.7 (0.0-10.0) % Eos % (Auto) 0.0 (0.0-4.0) % Baso % (Auto) 0.1 (0.0-2.0) % Neut # 6.3 (1.8-7.0) K/uL Lymph # 0.7 L (1.0-4.3) K/uL [place] # 0.4 (0.0-0.8) K/uL Eos # 0.0 (0.0-0.7) K/uL Baso # 0.0 (0.0-0.2) K/uL Neutrophils % (Manual) 83 H (50-75) % Band Neutrophils % 1 (0-2) % Lymphocytes % (Manual) 10 L (20-40) % Monocytes % (Manual) 6 (0-10) % Platelet Estimate Normal (NORMAL) Polychromasia Slight Hypochromasia (manual) Slight Poikilocytosis (manual Slight Anisocytosis (manual) Slight Ovalocytes Slight Puncture Site Lr pCO2 45 (35-45) mm/Hg pO2 97 (80-100) mm/Hg HCO3 31.3 H (21-28) mmol/L ABG pH 7.47 H (7.35-7.45) ABG Total CO2 34.2 H (22-28) mmol/L ABG O2 Saturation 99.2 H (95-98) % ABG Base Excess 8.2 H (-2.0-3.0) mmol/L ABG Hemoglobin 10.2 L (11.7-17.4) g/dL ABG Carboxyhemoglobin 1.7 H (0.5-1.5) % POC ABG HHb (Measured) 0.8 (0.0-5.0) % ABG Methemoglobin 0.9 (0.0-3.0) % Chaz Test Po A-a O2 Difference 203.0 mm/Hg Respiratory Index 2.1 Hgb O2 Saturation 96.5 (95.0-98.0) % FiO2 50.0 % Inspiratory BiPAP 12 Expiratory BiPAP 6 Sodium 143 (132-148) mmol/L Potassium 4.1 (3.6-5.2) mmol/L Chloride 105 (98-107) mmol/L Carbon Dioxide 31 H (22-30) mmol/L Anion Gap 11 (10-20) BUN 30 H (7-17) mg/dL Creatinine 0.5 L (0.7-1.2) MG/DL Est GFR ( Amer) > 60 Est GFR (Non-Af Amer) > 60 POC Glucose (mg/dL) 283 H (65-110) mg/dL Random Glucose 244 H (65-105) mg/dL Calcium 8.3 L (8.6-10.4) mg/dl Phosphorus 3.2 (2.5-4.5) mg/dL Magnesium 2.1 (1.6-2.3) mg/dL Total Bilirubin 0.9 (0.2-1.3) mg/dL AST 13 L (14-36) U/L ALT 24 (9-52) U/L Alkaline Phosphatase 66 (38-126) U/L Total Protein 5.4 L (6.3-8.3) g/dL Albumin 2.5 L (3.5-5.0) g/dL Globulin 2.9 (2.2-3.9) gm/dL Albumin/Globulin Ratio 0.9 L (1.0-2.1) Random Vancomycin ug/mL 11/24/16 11/23/16 11/23/16 Range/Units 05:28 23:36 17:32 WBC (4.8-10.8) K/uL RBC (3.80-5.20) Mil/uL Hgb (11.0-16.0) g/dL Hct (34.0-47.0) % MCV (81.0-99.0) fL MCH (27.0-31.0) pg MCHC (33.0-37.0) g/dL RDW (11.5-14.5) % Plt Count (130-400) K/uL MPV (7.2-11.7) fL Neut % (Auto) (50.0-75.0) % Lymph % (Auto) (20.0-40.0) % [place] % (Auto) (0.0-10.0) % Eos % (Auto) (0.0-4.0) % Baso % (Auto) (0.0-2.0) % Neut # (1.8-7.0) K/uL Lymph # (1.0-4.3) K/uL [place] # (0.0-0.8) K/uL Eos # (0.0-0.7) K/uL Baso # (0.0-0.2) K/uL Neutrophils % (Manual) (50-75) % Band Neutrophils % (0-2) % Lymphocytes % (Manual) (20-40) % Monocytes % (Manual) (0-10) % Platelet Estimate (NORMAL) Polychromasia Hypochromasia (manual) Poikilocytosis (manual Anisocytosis (manual) Ovalocytes Puncture Site pCO2 (35-45) mm/Hg pO2 (80-100) mm/Hg HCO3 (21-28) mmol/L ABG pH (7.35-7.45) ABG Total CO2 (22-28) mmol/L ABG O2 Saturation (95-98) % ABG Base Excess (-2.0-3.0) mmol/L ABG Hemoglobin (11.7-17.4) g/dL ABG Carboxyhemoglobin (0.5-1.5) % POC ABG HHb (Measured) (0.0-5.0) % ABG Methemoglobin (0.0-3.0) % Chaz Test A-a O2 Difference mm/Hg Respiratory Index Hgb O2 Saturation (95.0-98.0) % FiO2 % Inspiratory BiPAP Expiratory BiPAP Sodium (132-148) mmol/L Potassium (3.6-5.2) mmol/L Chloride (98-107) mmol/L Carbon Dioxide (22-30) mmol/L Anion Gap (10-20) BUN (7-17) mg/dL Creatinine (0.7-1.2) MG/DL Est GFR ( Amer) Est GFR (Non-Af Amer) POC Glucose (mg/dL) 265 H 283 H 222 H (65-110) mg/dL Random Glucose (65-105) mg/dL Calcium (8.6-10.4) mg/dl Phosphorus (2.5-4.5) mg/dL Magnesium (1.6-2.3) mg/dL Total Bilirubin (0.2-1.3) mg/dL AST (14-36) U/L ALT (9-52) U/L Alkaline Phosphatase (38-126) U/L Total Protein (6.3-8.3) g/dL Albumin (3.5-5.0) g/dL Globulin (2.2-3.9) gm/dL Albumin/Globulin Ratio (1.0-2.1) Random Vancomycin ug/mL 11/23/16 Range/Units 16:37 WBC (4.8-10.8) K/uL RBC (3.80-5.20) Mil/uL Hgb (11.0-16.0) g/dL Hct (34.0-47.0) % MCV (81.0-99.0) fL MCH (27.0-31.0) pg MCHC (33.0-37.0) g/dL RDW (11.5-14.5) % Plt Count (130-400) K/uL MPV (7.2-11.7) fL Neut % (Auto) (50.0-75.0) % Lymph % (Auto) (20.0-40.0) % [place] % (Auto) (0.0-10.0) % Eos % (Auto) (0.0-4.0) % Baso % (Auto) (0.0-2.0) % Neut # (1.8-7.0) K/uL Lymph # (1.0-4.3) K/uL [place] # (0.0-0.8) K/uL Eos # (0.0-0.7) K/uL Baso # (0.0-0.2) K/uL Neutrophils % (Manual) (50-75) % Band Neutrophils % (0-2) % Lymphocytes % (Manual) (20-40) % Monocytes % (Manual) (0-10) % Platelet Estimate (NORMAL) Polychromasia Hypochromasia (manual) Poikilocytosis (manual Anisocytosis (manual) Ovalocytes Puncture Site pCO2 (35-45) mm/Hg pO2 (80-100) mm/Hg HCO3 (21-28) mmol/L ABG pH (7.35-7.45) ABG Total CO2 (22-28) mmol/L ABG O2 Saturation (95-98) % ABG Base Excess (-2.0-3.0) mmol/L ABG Hemoglobin (11.7-17.4) g/dL ABG Carboxyhemoglobin (0.5-1.5) % POC ABG HHb (Measured) (0.0-5.0) % ABG Methemoglobin (0.0-3.0) % Chaz Test A-a O2 Difference mm/Hg Respiratory Index Hgb O2 Saturation (95.0-98.0) % FiO2 % Inspiratory BiPAP Expiratory BiPAP Sodium (132-148) mmol/L Potassium (3.6-5.2) mmol/L Chloride (98-107) mmol/L Carbon Dioxide (22-30) mmol/L Anion Gap (10-20) BUN (7-17) mg/dL Creatinine (0.7-1.2) MG/DL Est GFR ( Amer) Est GFR (Non-Af Amer) POC Glucose (mg/dL) (65-110) mg/dL Random Glucose (65-105) mg/dL Calcium (8.6-10.4) mg/dl Phosphorus (2.5-4.5) mg/dL Magnesium (1.6-2.3) mg/dL Total Bilirubin (0.2-1.3) mg/dL AST (14-36) U/L ALT (9-52) U/L Alkaline Phosphatase (38-126) U/L Total Protein (6.3-8.3) g/dL Albumin (3.5-5.0) g/dL Globulin (2.2-3.9) gm/dL Albumin/Globulin Ratio (1.0-2.1) Random Vancomycin 15.29 ug/mL Laboratory Results - last 24 hr 04/01/0411/23/16 11/23/16 16:37 17:32 23:36 WBC RBC Hgb Hct MCV MCH MCHC RDW Plt Count MPV Neut % (Auto) Lymph % (Auto) [place] % (Auto) Eos % (Auto) Baso % (Auto) Neut # Lymph # [place] # Eos # Baso # Neutrophils % (Manual) Band Neutrophils % Lymphocytes % (Manual) Monocytes % (Manual) Platelet Estimate Polychromasia Hypochromasia (manual) Poikilocytosis (manual Anisocytosis (manual) Ovalocytes Puncture Site pCO2 pO2 HCO3 ABG pH ABG Total CO2 ABG O2 Saturation ABG Base Excess ABG Hemoglobin ABG Carboxyhemoglobin POC ABG HHb (Measured) ABG Methemoglobin Chaz Test A-a O2 Difference Respiratory Index Hgb O2 Saturation FiO2 Inspiratory BiPAP Expiratory BiPAP Sodium Potassium Chloride Carbon Dioxide Anion Gap BUN Creatinine Est GFR ( Amer) Est GFR (Non-Af Amer) POC Glucose (mg/dL) 222 H 283 H Random Glucose Calcium Phosphorus Magnesium Total Bilirubin AST ALT Alkaline Phosphatase Total Protein Albumin Globulin Albumin/Globulin Ratio Random Vancomycin 15.29 11/24/16 11/24/16 11/24/16 05:28 05:54 11:56 WBC 7.5 RBC 3.82 Hgb 11.0 Hct 34.1 MCV 89.5 MCH 28.9 MCHC 32.3 L RDW 14.9 H Plt Count 204 MPV 8.9 Neut % (Auto) 84.5 H Lymph % (Auto) 9.7 L [place] % (Auto) 5.7 Eos % (Auto) 0.0 Baso % (Auto) 0.1 Neut # 6.3 Lymph # 0.7 L [place] # 0.4 Eos # 0.0 Baso # 0.0 Neutrophils % (Manual) 83 H Band Neutrophils % 1 Lymphocytes % (Manual) 10 L Monocytes % (Manual) 6 Platelet Estimate Normal Polychromasia Slight Hypochromasia (manual) Slight Poikilocytosis (manual Slight Anisocytosis (manual) Slight Ovalocytes Slight Puncture Site pCO2 pO2 HCO3 ABG pH ABG Total CO2 ABG O2 Saturation ABG Base Excess ABG Hemoglobin ABG Carboxyhemoglobin POC ABG HHb (Measured) ABG Methemoglobin Chaz Test A-a O2 Difference Respiratory Index Hgb O2 Saturation FiO2 Inspiratory BiPAP Expiratory BiPAP Sodium 143 Potassium 4.1 Chloride 105 Carbon Dioxide 31 H Anion Gap 11 BUN 30 H Creatinine 0.5 L Est GFR ( Amer) > 60 Est GFR (Non-Af Amer) > 60 POC Glucose (mg/dL) 265 H 283 H Random Glucose 244 H Calcium 8.3 L Phosphorus 3.2 Magnesium 2.1 Total Bilirubin 0.9 AST 13 L ALT 24 Alkaline Phosphatase 66 Total Protein 5.4 L Albumin 2.5 L Globulin 2.9 Albumin/Globulin Ratio 0.9 L Random Vancomycin 11/24/16 12:12 WBC RBC Hgb Hct MCV MCH MCHC RDW Plt Count MPV Neut % (Auto) Lymph % (Auto) [place] % (Auto) Eos % (Auto) Baso % (Auto) Neut # Lymph # [place] # Eos # Baso # Neutrophils % (Manual) Band Neutrophils % Lymphocytes % (Manual) Monocytes % (Manual) Platelet Estimate Polychromasia Hypochromasia (manual) Poikilocytosis (manual Anisocytosis (manual) Ovalocytes Puncture Site Lr pCO2 45 pO2 97 HCO3 31.3 H ABG pH 7.47 H ABG Total CO2 34.2 H ABG O2 Saturation 99.2 H ABG Base Excess 8.2 H ABG Hemoglobin 10.2 L ABG Carboxyhemoglobin 1.7 H POC ABG HHb (Measured) 0.8 ABG Methemoglobin 0.9 Chaz Test Po A-a O2 Difference 203.0 Respiratory Index 2.1 Hgb O2 Saturation 96.5 FiO2 50.0 Inspiratory BiPAP 12 Expiratory BiPAP 6 Sodium Potassium Chloride Carbon Dioxide Anion Gap BUN Creatinine Est GFR ( Amer) Est GFR (Non-Af Amer) POC Glucose (mg/dL) Random Glucose Calcium Phosphorus Magnesium Total Bilirubin AST ALT Alkaline Phosphatase Total Protein Albumin Globulin Albumin/Globulin Ratio Random Vancomycin Assessment/Plan (1) Respiratory failure with hypoxia Current Visit: Yes Status: Acute Comment: Continue CPAP trial Still has copious secretions and does not follow commands Continue IV antibiotics and follow-up chest x-ray Bronchoscopy and bronchoalveolar lavage Attending/Attestation - Attestation I have personally seen and examined this patient.: Yes I have fully participated in the care of the patient.: Yes I have reviewed all pertinent clinical information: Yes Notes (Text): 11/24/16 16:54 I have seen and examined the patient. Medical records, lab studies, and imaging were reviewed by me and a management plan was formulated on multidisciplinary rounds with resident Dr. Hutton. I agree with their above documented assessment and plan. Patient has been extubated and is doing well, calling PT/OT, speech and swallow eval, patient OOB to chair. Will need short term rehab. Critical Care Time 35 minutes. Multi-disciplinary rounds were performed with house staff, nursing, speech therapy, respiratory therapy, pharmacy and nutrition with integrated input from the primary team/attending and other consulting services. The documented time is cumulative and includes review of patient data/exams/labs/chart review and examination of the patient on rounds and throughout the day; time is exclusive of any procedures or teaching time.
--- NOTE | 2016-11-24 11:54 | RAD ---
HISTORY: s/p extubation COMPARISON: 11/23/2016 FINDINGS: LUNGS: Interval removal of an endotracheal tube. Other lines and tubes in stable position. Moderate to severe venous congestion with prominent bibasilar airspace opacities and moderate bilateral pleural effusions. PLEURA: As above. CARDIOVASCULAR: Cardiomegaly. OSSEOUS STRUCTURES: Degenerative changes in the spine and shoulders. VISUALIZED UPPER ABDOMEN: Normal. OTHER FINDINGS: None. IMPRESSION: Interval removal of an endotracheal tube. Other lines and tubes in stable position. Moderate to severe venous congestion with prominent bibasilar airspace opacities and moderate bilateral pleural effusions.
[2016-11-24 12:15] LABS: ABG ALLEN TEST PO; ARTERIAL BLOOD HGB O2 SAT 96.5 % (95.0-98.0); CARBOXYHEMOGLOBIN 1.7 % (0.5-1.5); DRAW SITE LR; HHB 0.8 % (0.0-5.0); METHEMOGLOBIN 0.9 % (0.0-3.0)
[2016-11-24] MEDS: Budesonide 0.25 mg/2 ml Inhal Susp UD INH SCH (19:52)
[2016-11-24] MEDS: (Lantus) Insulin Glargine, Recombinant SC SCH (21:23)
--- NOTE | 2016-11-24 22:28 | CP.PCM.PN ---
Subjective - Date & Time of Evaluation Date of Evaluation: 11/24/16 Time of Evaluation: 10:25 - Subjective Subjective: Pt s/p extubation in no acute distress.awake and responding well. Patient on BiPAP therapy. No acute events overnight. Patient intermittently drowsy but arousable. Patient denies subjective fevers or chills, nausea,vomiting, diarrhea or constipation at this time. Objective - Vital Signs/Intake and Output Vital Signs (last 24 hours): Temp Pulse Resp BP Pulse Ox 97.4 F L 93 H 16 141/55 L 95 11/24/16 20:00 11/24/16 22:06 11/24/16 22:01 11/24/16 22:01 11/24/16 22:01 Intake and Output: 11/24/16 11/25/16 18:59 06:59 Intake Total 1750 200 Output Total 685 385 Balance 1065 -185 - Medications Medications: Current Medications Acetaminophen (Tylenol 650mg/20.3ml Solution Ud) 650 mg GT Q6 PRN PRN Reason: Fever >100.4 F Last Admin: 11/16/16 08:59 Dose: 650 mg Amiodarone HCl (Cordarone) 200 mg PO Q8H [facility] Last Admin: 11/24/16 17:54 Dose: 200 mg Budesonide (Pulmicort Respules) 0.25 mg INH RQ12 [facility] Last Admin: 11/24/16 19:52 Dose: 0.25 mg Diltiazem HCl (Cardizem) 60 mg PO Q6 [facility] Last Admin: 11/24/16 17:55 Dose: 60 mg Heparin Sodium (Porcine) (Heparin) 5,000 units SC Q12 [facility] Last Admin: 11/24/16 21:23 Dose: 5,000 units Imipenem/Cilastatin Sodium 1, (000 mg/ Sodium Chloride) 250 mls @ 250 mls/hr IVPB Q8H [facility] Stop: 11/29/16 23:59 Last Admin: 11/24/16 21:21 Dose: 250 mls/hr Vancomycin/Sodium Chloride (Vancocin) 200 mls @ 166.6 mls/hr IVPB Q12H [facility] Stop: 12/03/16 22:00 Last Admin: 11/24/16 09:50 Dose: 166.6 mls/hr Insulin Glargine (Lantus) 13 unit SC HS [facility] Last Admin: 11/24/16 21:23 Dose: 13 u Insulin Human Regular (Novolin R) 0 unit SC Q6 [facility] PRN Reason: Protocol Last Admin: 11/24/16 17:55 Dose: 6 unit Methimazole (Tapazole) 10 mg PO TID [facility] Last Admin: 11/24/16 17:55 Dose: 10 mg Metoprolol Succinate (Toprol Xl) 12.5 mg PO DAILY [facility] Last Admin: 11/24/16 09:49 Dose: 12.5 mg Pantoprazole Sodium (Protonix Susp) 40 mg PO DAILY [facility] Last Admin: 11/24/16 09:48 Dose: 40 mg Tiotropium [place] (Spiriva) 18 mcg INH RQ24 [facility] Vitamin A (Vitamin A & D Oint Ud Foilpak) 1 ea TOP BID [facility] Last Admin: 11/24/16 17:56 Dose: 1 ea - Labs Labs: 11/24/16 05:54 11/24/16 05:54 PT 12.0 SECONDS (9.7-12.2) 11/13/16 04:57 INR 1.1 11/13/16 04:57 APTT 38 SECONDS (21-34) H D 11/13/16 04:57 - Constitutional Appears: No Acute Distress, Chronically Ill - Head Exam Head Exam: ATRAUMATIC, NORMAL INSPECTION, NORMOCEPHALIC - Eye Exam Eye Exam: EOMI, Normal appearance, PERRL Pupil Exam: NORMAL ACCOMODATION, PERRL - Respiratory Exam Respiratory Exam: Decreased Breath Sounds, Rales - Cardiovascular Exam Cardiovascular Exam: REGULAR RHYTHM, +S1, +S2. absent: Murmur - Neurological Exam Neurological Exam: Alert, Awake - Psychiatric Exam Psychiatric exam: Normal Affect, Normal Mood Assessment and Plan (1) Diabetes Status: Chronic (2) HTN (hypertension) Status: Chronic (3) Bilateral lower leg cellulitis Status: Deleted (4) Atrial fibrillation with rapid ventricular response Status: Acute (5) CHF (congestive heart failure) Status: Acute (6) Pleural effusion Status: Acute
--- NOTE | 2016-11-24 22:47 | CP.PCM.PN ---
Subjective - Date & Time of Evaluation Date of Evaluation: 11/24/16 Time of Evaluation: 22:44 - Subjective Subjective: IDDM & hyperthyroidism Objective - Vital Signs/Intake and Output Vital Signs (last 24 hours): Temp Pulse Resp BP Pulse Ox 97.4 F L 93 H 16 141/55 L 95 11/24/16 20:00 11/24/16 22:06 11/24/16 22:01 11/24/16 22:01 11/24/16 22:01 Intake and Output: 11/24/16 11/25/16 18:59 06:59 Intake Total 1750 200 Output Total 685 385 Balance 1065 -185 - Medications Medications: Current Medications Acetaminophen (Tylenol 650mg/20.3ml Solution Ud) 650 mg GT Q6 PRN PRN Reason: Fever >100.4 F Last Admin: 11/16/16 08:59 Dose: 650 mg Amiodarone HCl (Cordarone) 200 mg PO Q8H [facility] Last Admin: 11/24/16 17:54 Dose: 200 mg Budesonide (Pulmicort Respules) 0.25 mg INH RQ12 [facility] Last Admin: 11/24/16 19:52 Dose: 0.25 mg Diltiazem HCl (Cardizem) 60 mg PO Q6 [facility] Last Admin: 11/24/16 17:55 Dose: 60 mg Heparin Sodium (Porcine) (Heparin) 5,000 units SC Q12 [facility] Last Admin: 11/24/16 21:23 Dose: 5,000 units Imipenem/Cilastatin Sodium 1, (000 mg/ Sodium Chloride) 250 mls @ 250 mls/hr IVPB Q8H [facility] Stop: 11/29/16 23:59 Last Admin: 11/24/16 21:21 Dose: 250 mls/hr Vancomycin/Sodium Chloride (Vancocin) 200 mls @ 166.6 mls/hr IVPB Q12H [facility] Stop: 12/03/16 22:00 Last Admin: 11/24/16 09:50 Dose: 166.6 mls/hr Insulin Glargine (Lantus) 13 unit SC HS [facility] Last Admin: 11/24/16 21:23 Dose: 13 u Insulin Human Regular (Novolin R) 0 unit SC Q6 [facility] PRN Reason: Protocol Last Admin: 11/24/16 17:55 Dose: 6 unit Methimazole (Tapazole) 10 mg PO TID [facility] Last Admin: 11/24/16 17:55 Dose: 10 mg Metoprolol Succinate (Toprol Xl) 12.5 mg PO DAILY [facility] Last Admin: 11/24/16 09:49 Dose: 12.5 mg Pantoprazole Sodium (Protonix Susp) 40 mg PO DAILY [facility] Last Admin: 11/24/16 09:48 Dose: 40 mg Tiotropium [place] (Spiriva) 18 mcg INH RQ24 [facility] Vitamin A (Vitamin A & D Oint Ud Foilpak) 1 ea TOP BID [facility] Last Admin: 11/24/16 17:56 Dose: 1 ea - Labs Labs: 11/24/16 05:54 11/24/16 05:54 PT 12.0 SECONDS (9.7-12.2) 11/13/16 04:57 INR 1.1 11/13/16 04:57 APTT 38 SECONDS (21-34) H D 11/13/16 04:57 Assessment and Plan (1) Diabetes mellitus, insulin dependent (IDDM), uncontrolled Assessment & Plan: Endocrine consult f/u reason for consult: uncontrolled diabetes source : chrart review , pt awake , alert with OGT tube for bleeding unable to give history & as per chart review poor historian is 61 y/o admitted for a fib with rapid venttirucular resonse & DKA / bilateral lower extremities cellulites ,pt was intubated & also started on insulin drip glucose on admission 1023 . also was started on steroid 40 mg po bid , endocrine was contacted yesterday 11/12 for uncontrolled IDDM glucose in 300- 400 & also pt with hyperthyroidism on tapazole , blood glucose log :200's , off prednisone s/p steroids 125 mg dose yesterday O hypoglycemia Allergy NKDA Past medical history : HTN , pedal edema Past surgical history : not documented Psychiatry history : (+) psychiatry disorder Social history : (+)smoking , ETOH use , illicit drug use Family history : unknown ROS: Constitutional: no fever ,tiredness/weakness .HEENT: no earache, change in voice .Respiratory: no cough, sob . CVS :no chest pain, no palpitations . Abdomen : no abdominal pain, no nausea /vomiting , no change bowel movement . 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 Extremities : (+) edema , no tremors . Skin: no itching, no rash Physical exam Well developed , awake , on Bipap , on continuos feeding VSS HEENT: norm cephalic, atraumatic , no lid lag , no exophthalmos , mild stare NECK: supple, no palpable lymphadenopathy THYROID: unable to palpable thyroid , not tender CHEST: fair air entry, bilateral, CVS: S1,S2 , ABDOMEN: bowel sound present, benign, obese, no wide purple striae , no bruises EXTREMITIES: bilateral hyper pigmented skin with edema, clubbing or cyanosis, no palpable hand tremors Skin : acanthosis nigricans lab: 11/16 FT4 2.59 , tsh <0.02 , T4 8.88 , wbc 9 , LFT wnl thyroid antibodies (-) tsh < 0.02 ,ft4 2.31 , t4 12.1 , a1c 14 , wbc 10.4 Assessment uncontrolled IDDM steroids induced hyperglycemia , last dose yesterday 11/23 hyperthyroidisim with afib , on cardiazem & lopressor bilateral cellutitis a fib bleeding /fever /sepsis obesity Plan - continue lantus @ 13 units @ hs first today continue humalin R low dose coverage q6h on tapazole 10 mg po tid mon[place] thyroid function Status: Chronic (2) Hyperthyroidism Status: Chronic (3) Atrial fibrillation with rapid ventricular response Status: Acute (4) Bilateral lower leg cellulitis Status: Acute (5) Steroid-induced hyperglycemia Status: Acute
[2016-11-25] MEDS: (Novolin R) Insulin Human Regular 100 units/ml vial SC SCH ×5 (00:32→23:51)
[2016-11-25 07:13] LABS: CHLORIDE 106 mmol/L (98-107); POTASSIUM 4.4 mmol/L (3.6-5.2); SODIUM 141 mmol/L (132-148)
[2016-11-25 07:15] LABS: AST/SGOT 20 U/L (14-36); CARBON DIOXIDE 30 mmol/L (22-30); GFR AFRICAN-AMERICAN > 60
[2016-11-25 07:16] LABS: ALB/GLOB RATIO 0.8 (1.0-2.1); ALKALINE PHOSPHATASE 52 U/L (38-126); ALT/SGPT 20 U/L (9-52); BLOOD UREA NITROGEN 31 mg/dL (7-17); CALCIUM 8.1 mg/dl (8.6-10.4); GLUCOSE,RANDOM 172 mg/dL (65-105); TOTAL PROTEIN 5.1 g/dL (6.3-8.3)
[2016-11-25 07:17] LABS: MAGNESIUM 2.3 mg/dL (1.6-2.3)
[2016-11-25 07:18] LABS: BASO % 0.3 % (0.0-2.0); EOS # 0.1 K/uL (0.0-0.7); EOS % 0.7 % (0.0-4.0); HEMATOCRIT 36.6 % (34.0-47.0); LYMPH # 1.3 K/uL (1.0-4.3); LYMPH % 12.2 % (20.0-40.0); MEAN CELL VOLUME 90.5 fL (81.0-99.0); MEAN CORPUSCULAR HEMOGLOBIN 28.8 pg (27.0-31.0); MEAN CORPUSCULAR HGB CONC 31.9 g/dL (33.0-37.0); MEAN PLATELET VOLUME 8.5 fL (7.2-11.7); MONO # 0.7 K/uL (0.0-0.8); MONO % 6.9 % (0.0-10.0); NRBC % 0.2 % (0.0-2.0); RED CELL DISTRIBUTION WIDTH 15.1 % (11.5-14.5); WHITE BLOOD COUNT 10.9 K/uL (4.8-10.8)
[2016-11-25 07:32] LABS: FT3 2.98 pg/mL (2.77-5.27)
[2016-11-25 07:46] LABS: THYROID STIMULATING HORMONE < 0.02 mIU/L (0.46-4.68)
[2016-11-25] MEDS: Budesonide 0.25 mg/2 ml Inhal Susp UD INH SCH ×2 (07:51→20:20)
[2016-11-25] MEDS ORDERED: Tiotropium 18 mcg Cap For Inhalation INH SCH (08:00)
[2016-11-25] MEDS: Vitamins A & D Oint UD Foilpak TOP SCH ×2 (09:05→17:32)
--- NOTE | 2016-11-25 09:21 | CP.PCM.PN ---
Subjective - Date & Time of Evaluation Date of Evaluation: 11/25/16 Time of Evaluation: 08:00 - Subjective Subjective: patient seen and examined in the intensive care unit. off BIPAP and placed on Ventimask, stable in no respiratory distress Objective - Vital Signs/Intake and Output Vital Signs (last 24 hours): Temp Pulse Resp BP Pulse Ox 97.9 F 87 16 127/60 100 11/25/16 08:00 11/25/16 08:00 11/25/16 08:00 11/25/16 07:01 11/25/16 08:00 Intake and Output: 11/25/16 11/25/16 06:59 18:59 Intake Total 1180 0 Output Total 915 30 Balance 265 -30 - Medications Medications: Current Medications Acetaminophen (Tylenol 650mg/20.3ml Solution Ud) 650 mg GT Q6 PRN PRN Reason: Fever >100.4 F Last Admin: 11/16/16 08:59 Dose: 650 mg Amiodarone HCl (Cordarone) 200 mg PO Q8H [facility] Last Admin: 11/25/16 02:19 Dose: 200 mg Budesonide (Pulmicort Respules) 0.25 mg INH RQ12 [facility] Last Admin: 11/25/16 07:51 Dose: 0.25 mg Diltiazem HCl (Cardizem) 60 mg PO Q6 [facility] Last Admin: 11/25/16 06:48 Dose: Not Given Heparin Sodium (Porcine) (Heparin) 5,000 units SC Q12 [facility] Last Admin: 11/25/16 09:04 Dose: 5,000 units Imipenem/Cilastatin Sodium 1, (000 mg/ Sodium Chloride) 250 mls @ 250 mls/hr IVPB Q8H [facility] Stop: 11/29/16 23:59 Last Admin: 11/25/16 05:21 Dose: 250 mls/hr Vancomycin/Sodium Chloride (Vancocin) 200 mls @ 166.6 mls/hr IVPB Q12H [facility] Stop: 12/03/16 22:00 Last Admin: 11/24/16 23:05 Dose: 166.6 mls/hr Insulin Glargine (Lantus) 13 unit SC HS [facility] Last Admin: 11/24/16 21:23 Dose: 13 u Insulin Human Regular (Novolin R) 0 unit SC Q6 [facility] PRN Reason: Protocol Last Admin: 11/25/16 06:51 Dose: 2 unit Methimazole (Tapazole) 10 mg PO TID [facility] Last Admin: 11/24/16 17:55 Dose: 10 mg Metoprolol Succinate (Toprol Xl) 12.5 mg PO DAILY [facility] Last Admin: 11/24/16 09:49 Dose: 12.5 mg Pantoprazole Sodium (Protonix Susp) 40 mg PO DAILY [facility] Last Admin: 11/24/16 09:48 Dose: 40 mg Tiotropium [place] (Spiriva) 18 mcg INH RQ24 [facility] Last Admin: 11/25/16 07:51 Dose: 18 mcg Vitamin A (Vitamin A & D Oint Ud Foilpak) 1 ea TOP BID [facility] Last Admin: 11/25/16 09:05 Dose: 1 ea - Labs Labs: 11/25/16 06:57 11/25/16 06:57 PT 12.0 SECONDS (9.7-12.2) 11/13/16 04:57 INR 1.1 11/13/16 04:57 APTT 38 SECONDS (21-34) H D 11/13/16 04:57 - Head Exam Head Exam: ATRAUMATIC, NORMOCEPHALIC - Eye Exam Eye Exam: Normal appearance - ENT Exam ENT Exam: Mucous Membranes Moist - Neck Exam Neck Exam: Normal Inspection - Respiratory Exam Respiratory Exam: Decreased Breath Sounds - Cardiovascular Exam Cardiovascular Exam: Irregular Rhythm - GI/Abdominal Exam GI & Abdominal Exam: Soft, Normal Bowel Sounds Assessment and Plan (1) Respiratory failure with hypoxia Assessment & Plan: status post extubation off BiPAP in no respiratory distress Continue nebulizer treatment and antibiotics Status: Acute (2) Atrial fibrillation with rapid ventricular response Status: Acute
[2016-11-25] MEDS: Ipratropium 0.02% Inhal Soln (0.5 mg/2.5 ml) UD IH SCH ×2 (09:49→20:20)
[2016-11-25] MEDS: Pantoprazole 40 mg Susp UD PO SCH (10:00)
[2016-11-25] MEDS: Metoprolol Succinate 12.5 mg XL PO SCH (10:00)
[2016-11-25] MEDS ORDERED: Enoxaparin 40 mg Syringe SC SCH (10:00)
[2016-11-25] MEDS: Vancomycin 1 gm/NS 200 ml 200 ML IVPB SCH ×2 (10:24→23:30)
--- NOTE | 2016-11-25 10:32 | RAD ---
HISTORY: s/p extubation COMPARISON: 11/24/2016 FINDINGS: LUNGS: Right basilar opacity persists. With possible early left upper lobe opacity. PLEURA: Bilateral pleural effusion, unchanged. CARDIOVASCULAR: Status post removal of nasogastric tube. Right IJ central venous catheter unchanged. Congestive change noted. OSSEOUS STRUCTURES: No significant abnormalities. VISUALIZED UPPER ABDOMEN: Normal. OTHER FINDINGS: None. IMPRESSION: Nasogastric tube removal. Persistent right basilar opacity. Bilateral pleural effusion. Possible developing left upper lobe infiltrate. Congestive change.
[2016-11-25] MEDS: Lactated Ringer's 1,000 ML IV SCH (15:14)
--- NOTE | 2016-11-25 18:12 | CP.CCUPN ---
CCU Subjective - Physician Review Subjective (Free Text): 11/08/16 13:06 Pt seen in mild distress requiring intubation. Two large pieces of dried mucus were extracted from the patient's throat obstructing vocal cords. Patient intubated. TLC line was also placed to ensure better IV access. As there is no power of state attorney or legal guardian, an administrative consent was obtained for central line. An ROS could not be obtained at this time because patient is intubated and sedated. 11/09/16 13:15 Patient seen at beside intubated and sedated. GCS 8T (FiO2 60 PEEP 5 VT 500 RR 16). No acute events overnight per nursing. A fib is rate controlled. Patient is stable. New vent settings after rounds PRVC (FiO2 60, PEEP 5, RR 12 VT 500). ROS couldn't be obtained because patient is intubated and sedated. 11/10/16 16:50 Pt seen and examined in no acute distress. Patient spiked a fever during overnight shift which initially responded to Tylenol and later returned during the morning shift. Patient administered tylenol and cooling blankets. Patient underwent thoracentesis for pleural effusion. Tolerated procedure well. Patient is rate controlled. ROS couldn't be obtained because patient is intubated and sedated. 11/11/16 8:34 Pt seen and examined in no acute distress. Patient seen at beside intubated and sedated. (FiO2 50 PEEP 5 RR 14 VT 500). Patient is awake, but does not follow commands. Patient has low grade fever this morning (T max 100.2, T 99.0-100.2). A fib is rate controlled. Patient is stable. ROS couldn't be obtained because patient was intubated and sedated at the time of evaluation 11/14/16 15:35 Patient seen at bedside in no acute distress. Patient intubated with vent settings of FiO2 50%, RR 14, PEEP 5, TV 500% and is saturating well at 100%. GCS 10T (E4 VT M6). Patient's last dose of propofol was given 11/12. Patient opens eyes spontaneously and moves extremities on her own. CPAP trial was done after morning rounds. Patient was tachycardic prior to morning rounds, but is currently rate controlled. Patient is stable. Patient spiked a fever overnight and is currently having a low grade fever (T max 101.1, T current 99.3). ROS could not be obtained because patient is intubated at time of evaluation. Over the weekend, NGT removed and replaced with OGT with Afrin spray in nose bilaterally. Right sided nasal packing inserted where NGT had been. 11/15/16 15:39 Patient seen at bedside in no acute distress. Patient intubated with vent settings of FiO2 50%, RR 14, PEEP 5, TV 500% and is saturating well at 100%. GCS 10T (E4 VT M6). Patient's last dose of propofol was given 11/12. Patient opens eyes spontaneously and moves extremities on her own. Patient is stable but still lethargic. Patient spiked a fever overnight and has normal temperature now (T max 101, T current 98.4). ROS could not be obtained because patient is intubated and lethargic at time of evaluation. 11/16/16 13:09 Patient seen at bedside in no acute distress. Patient intubated with vent settings of FiO2 50%, RR 14, PEEP 5, TV 500% and is saturating well at 100%. Patient is stable but still lethargic. Patient spiked a fever overnight and has normal temperature now (T max 101.4, T current 101.3). ROS could not be obtained because patient is intubated at time of evaluation. 11/18/16 20:33 Pt seen and examined in no acute distress. Patient intubated but tolerating CPAP trial. Patient opens eyes spontaneously and moves extremities on her own. Patient is stable but moderately lethargic. Patient afebrile overnight. ROS could not be obtained because patient is intubated at time of evaluation. 11/21/16 14:44 Pt seen and examined in no acute distress. No significant events overnight per nursing. Patient alert and restless currently though intermittently somnolent. Patient gestured that she would like the tube out. At this time, patient not able to comply to an ROS. 11/22/16 12:17 Pt seen and examined in no acute distress. No significant events overnight per nursing. Patient less alert today . At this time, patient not able to comply to an ROS. 11/23/16 15:04 Pt seen and examined s/p extubation. Patient had moderate secretions which were suctioned. Patient alert and mildly agitated but tolerant. At this time, denies subjective fevers or chills, nausea, vomiting, diarrhea, dyspnea or headaches . 11/24/16 16:01 Pt s/p extubation in no acute distress. Patient on BiPAP therapy. No acute events overnight. Patient intermittently drowsy but arousable. Patient denies subjective fevers or chills, nausea,vomiting, diarrhea or constipation at this time. 11/25/16 17:45 Pt seen and examined in no apparent distress. No acute events overnight. Patient remains stable off BIPAP and tolerating ventimask. Patient denies headaches, chest pain, palpitations, subjective fevers or chills, nausea, vomiting, diarrhea or constipation at this time. CCU Objective - Vital Signs / Intake & Output Vital Signs (Last 4 hours): Vital Signs Pulse Resp BP Pulse Ox 11/25/16 17:01 76 12 138/66 99 11/25/16 17:00 84 11 L 99 11/25/16 16:01 92 H 13 134/71 99 11/25/16 16:00 92 H 11 L 98 11/25/16 15:51 79 15 100 11/25/16 15:01 92 H 16 119/59 L 99 11/25/16 15:00 79 16 99 11/25/16 14:02 136 H 17 126/97 H 89 L 11/25/16 14:00 93 H 15 98 Intake and Output (Last 8hrs): Intake & Output 11/25/16 11/25/16 11/25/16 06:59 14:59 22:59 Intake Total 950 450 225 Output Total 530 320 335 Balance 420 130 -110 Weight 249 lb 1.957 oz Intake: Intake, IV Amount 350 450 225 Right Distal Port 450 225 Right Medial Port 350 Internal Jugular Tube Feeding 350 0 Other 250 Output: Urine 530 320 335 Urethral ([place]) 530 320 335 Other: # Bowel Movements 1 - Physical Exam Head: Positive for: Atraumatic, Normocephalic Pupils: Positive for: PERRL. Negative for: Sluggish, Non-Reactive Extroacular Muscles: Positive for: EOMI. Negative for: Gaze Palsy Conjunctiva: Positive for: Normal. Negative for: Injected, Icteric Mouth: Positive for: Moist Mucous Membranes Neck: Positive for: Normal Range of Motion, Trachea Midline. Negative for: Meningeal Signs, MIDLINE TENDERNESS, Paraspinal Tenderness, JVD, Lymphadenopathy , Bruit, Other Respiratory/Chest: Positive for: Good Air Exchange. Negative for: Rales Cardiovascular: Positive for: Irregular Rhythm, Peripheal Pulses Present. Negative for: Murmurs, Normal S1, S2 Abdomen: Negative for: Tenderness, Distention Upper Extremity: Positive for: Normal Inspection Lower Extremity: Positive for: Edema Neurological: Negative for: Speech Normal Skin: Positive for: Warm, Dry, Rashes Psychiatric: Positive for: Alert, Normal Affect, Normal Mood - Medications Active Medications: Active Medications Generic Name Dose Route Start Last Admin Trade Name Freq PRN Reason Stop Dose Admin Acetaminophen 650 mg 11/14/16 20:10 11/16/16 08:59 Tylenol 650mg/20.3ml Solution Ud GT 650 mg Q6 PRN Administration Fever >100.4 F Amiodarone HCl 200 mg 11/15/16 18:00 11/25/16 17:30 Cordarone PO Not Given Q8H [facility] Budesonide 0.25 mg 11/24/16 20:00 11/25/16 07:51 Pulmicort Respules INH 0.25 mg RQ12 [facility] Administration Diltiazem HCl 60 mg 11/15/16 12:00 11/25/16 12:00 Cardizem PO Not Given Q6 [facility] Diltiazem HCl 5 mg 11/25/16 14:45 11/25/16 15:31 Cardizem IVP 5 mg Q6H [facility] Administration Enoxaparin Sodium 110 mg 11/25/16 22:00 Lovenox SC Q12 [facility] Imipenem/Cilastatin Sodium 1, 250 mls @ 250 mls/hr 11/15/16 13:00 11/25/16 13: 26 000 mg/ Sodium Chloride IVPB 11/29/16 23:59 250 mls/hr Q8H [facility] Administration Vancomycin/Sodium Chloride 200 mls @ 166.6 mls/hr 11/19/16 10:00 11/25/16 10:24 Vancocin IVPB 12/03/16 22:00 166.6 mls/hr Q12H [facility] Administration Lactated Ringer's 1,000 mls @ 75 mls/hr 11/25/16 14:45 11/25/16 15:14 Lactated Ringer's IV 75 mls/hr .[id number] [facility] Administration Insulin Glargine 13 unit 11/23/16 22:00 11/24/16 21:23 Lantus SC 13 u HS [facility] Administration Insulin Human Regular 0 unit 11/17/16 08:38 11/25/16 12:11 Novolin R SC Not Given Q6 [facility] Protocol Ipratropium [place] 0.5 mg 11/25/16 09:30 11/25/16 09:49 Atrovent IH 0.5 mg RQ12 [facility] Administration Methimazole 10 mg 11/18/16 10:00 11/25/16 17:31 Tapazole PO Not Given TID [facility] Metoprolol Succinate 12.5 mg 11/16/16 10:30 11/25/16 10:00 Toprol Xl PO Not Given DAILY [facility] Pantoprazole Sodium 40 mg 11/23/16 10:00 11/25/16 10:00 Protonix Susp PO Not Given DAILY [facility] Vitamin A 1 ea 11/09/16 18:00 11/25/16 17:32 Vitamin A & D Oint Ud Foilpak TOP 1 ea BID [facility] Administration - Patient Studies Lab Studies: Lab Studies 11/25/16 11/25/16 11/25/16 Range/Units 11:55 06:57 06:46 WBC 10.9 H (4.8-10.8) K/uL RBC 4.05 (3.80-5.20) Mil/uL Hgb 11.7 (11.0-16.0) g/dL Hct 36.6 (34.0-47.0) % MCV 90.5 (81.0-99.0) fL MCH 28.8 (27.0-31.0) pg MCHC 31.9 L (33.0-37.0) g/dL RDW 15.1 H (11.5-14.5) % Plt Count 177 (130-400) K/uL MPV 8.5 (7.2-11.7) fL Neut % (Auto) 79.9 H (50.0-75.0) % Lymph % (Auto) 12.2 L (20.0-40.0) % [place] % (Auto) 6.9 (0.0-10.0) % Eos % (Auto) 0.7 (0.0-4.0) % Baso % (Auto) 0.3 (0.0-2.0) % Neut # 8.7 H (1.8-7.0) K/uL Lymph # 1.3 (1.0-4.3) K/uL [place] # 0.7 (0.0-0.8) K/uL Eos # 0.1 (0.0-0.7) K/uL Baso # 0.0 (0.0-0.2) K/uL Sodium 141 (132-148) mmol/L Potassium 4.4 (3.6-5.2) mmol/L Chloride 106 (98-107) mmol/L Carbon Dioxide 30 (22-30) mmol/L Anion Gap 10 (10-20) BUN 31 H (7-17) mg/dL Creatinine 0.4 L (0.7-1.2) MG/DL Est GFR ( Amer) > 60 Est GFR (Non-Af Amer) > 60 POC Glucose (mg/dL) 149 H 190 H (65-110) mg/dL Random Glucose 172 H (65-105) mg/dL Calcium 8.1 L (8.6-10.4) mg/dl Phosphorus 3.0 (2.5-4.5) mg/dL Magnesium 2.3 (1.6-2.3) mg/dL Total Bilirubin 1.0 (0.2-1.3) mg/dL AST 20 (14-36) U/L ALT 20 (9-52) U/L Alkaline Phosphatase 52 (38-126) U/L Total Protein 5.1 L (6.3-8.3) g/dL Albumin 2.3 L (3.5-5.0) g/dL Globulin 2.8 (2.2-3.9) gm/dL Albumin/Globulin Ratio 0.8 L (1.0-2.1) Free T4 2.01 (0.78-2.19) ng/dL TSH 3rd Generation < 0.02 L (0.46-4.68) mIU/L 11/25/16 11/24/16 Range/Units 00:10 17:34 WBC (4.8-10.8) K/uL RBC (3.80-5.20) Mil/uL Hgb (11.0-16.0) g/dL Hct (34.0-47.0) % MCV (81.0-99.0) fL MCH (27.0-31.0) pg MCHC (33.0-37.0) g/dL RDW (11.5-14.5) % Plt Count (130-400) K/uL MPV (7.2-11.7) fL Neut % (Auto) (50.0-75.0) % Lymph % (Auto) (20.0-40.0) % [place] % (Auto) (0.0-10.0) % Eos % (Auto) (0.0-4.0) % Baso % (Auto) (0.0-2.0) % Neut # (1.8-7.0) K/uL Lymph # (1.0-4.3) K/uL [place] # (0.0-0.8) K/uL Eos # (0.0-0.7) K/uL Baso # (0.0-0.2) K/uL Sodium (132-148) mmol/L Potassium (3.6-5.2) mmol/L Chloride (98-107) mmol/L Carbon Dioxide (22-30) mmol/L Anion Gap (10-20) BUN (7-17) mg/dL Creatinine (0.7-1.2) MG/DL Est GFR ( Amer) Est GFR (Non-Af Amer) POC Glucose (mg/dL) 288 H 281 H (65-110) mg/dL Random Glucose (65-105) mg/dL Calcium (8.6-10.4) mg/dl Phosphorus (2.5-4.5) mg/dL Magnesium (1.6-2.3) mg/dL Total Bilirubin (0.2-1.3) mg/dL AST (14-36) U/L ALT (9-52) U/L Alkaline Phosphatase (38-126) U/L Total Protein (6.3-8.3) g/dL Albumin (3.5-5.0) g/dL Globulin (2.2-3.9) gm/dL Albumin/Globulin Ratio (1.0-2.1) Free T4 (0.78-2.19) ng/dL TSH 3rd Generation (0.46-4.68) mIU/L Laboratory Results - last 24 hr 04/06/17 04/07/17 04/07/17 17:34 00:10 06:46 WBC RBC Hgb Hct MCV MCH MCHC RDW Plt Count MPV Neut % (Auto) Lymph % (Auto) [place] % (Auto) Eos % (Auto) Baso % (Auto) Neut # Lymph # [place] # Eos # Baso # Sodium Potassium Chloride Carbon Dioxide Anion Gap BUN Creatinine Est GFR ( Amer) Est GFR (Non-Af Amer) POC Glucose (mg/dL) 281 H 288 H 190 H Random Glucose Calcium Phosphorus Magnesium Total Bilirubin AST ALT Alkaline Phosphatase Total Protein Albumin Globulin Albumin/Globulin Ratio Free T4 TSH 3rd Generation 11/25/16 11/25/16 06:57 11:55 WBC 10.9 H RBC 4.05 Hgb 11.7 Hct 36.6 MCV 90.5 MCH 28.8 MCHC 31.9 L RDW 15.1 H Plt Count 177 MPV 8.5 Neut % (Auto) 79.9 H Lymph % (Auto) 12.2 L [place] % (Auto) 6.9 Eos % (Auto) 0.7 Baso % (Auto) 0.3 Neut # 8.7 H Lymph # 1.3 [place] # 0.7 Eos # 0.1 Baso # 0.0 Sodium 141 Potassium 4.4 Chloride 106 Carbon Dioxide 30 Anion Gap 10 BUN 31 H Creatinine 0.4 L Est GFR ( Amer) > 60 Est GFR (Non-Af Amer) > 60 POC Glucose (mg/dL) 149 H Random Glucose 172 H Calcium 8.1 L Phosphorus 3.0 Magnesium 2.3 Total Bilirubin 1.0 AST 20 ALT 20 Alkaline Phosphatase 52 Total Protein 5.1 L Albumin 2.3 L Globulin 2.8 Albumin/Globulin Ratio 0.8 L Free T4 2.01 TSH 3rd Generation < 0.02 L Fingerstick Blood Sugar Results: 149 Review of Systems - Review of Systems Review of Systems: see subjective Assessment/Plan - Assessment and Plan (Free Text) Assessment: 61 F with history of hyperthyroidism, admitted to ED for hyperglycemia, altered mental status, and a-fib. Patient was admitted to ICU for treatment of DKA and patient continues to be monitored in the ICU. Patient's ventilatory status improved tolerating CPAP trial. Patient is s/p therapeutic bronchoscopy 11/15, , 11/18. Pt tolerated well. Extubated 11/23/16. Plan: Neuro: Drowsy at times, but arousable. Neurochecks Q4 Cardiovascular: Imagin/26 CT soft tissue neck: no significant evidence of lymphadenopathy, moderately enlarged ET and NG tube. 11/13 CT Lower extremity: soft tissue swelling/stranding suggestive of cellulitis. No evidence of abscess. 11/13 CTA of chest/abdomen/pelvis: suspicious mass lesion at right kidney midpole 4.2 x 4.5. Moderate enlargement of bilateral adrenal gland with right > left. Low attenuation nodules. increase in size of left pleural effusion since pervious study. complete collapse of left lower lobe. 2.8 cm low-attenuation lesion at anterior upper portion of spleen. foci of cortical irregularity and lucency in spine and right ribs. cardiomegaly 11/10 Duplex scan lower extremity artery: no evidence of deep or superficial vein thrombosis of Right and Left lower extremity. 11/09 Echocardiogram: LVEF 65%, elevated diastolic filling pressures. 11/04 EKG: atrial fibrillation with RVR, PVCs @ 153 bpm 11/17 CT Surgery consult - - no surgical intervention needed at time time Metoprolol 2.5 mg IVP Q6H [facility] Acetazolamide 500 mg IV Q8 [facility] Amiodarone HCl 200 mg PO TID Diltiazem 60 mg PO Q6 [facility] Pulmonary: Saline nebs, humidified air BiPAP 50% to be decreased to 40% Patient tolerated CPAP trial. Extubated 11/23. On BIPAP. Monitor CXR 11/21: Moderate to severe venous congestion with prominent bibasilar airspace opacities and moderate bilateral pleural effusions DC Solumedrol 10 mg IVP daily s/p therapeutic bronch 11/15, 11/16, 11/18 - improved secretions. Endo: HHS Diabetes - uncontrolled History of Hyperthyroidism T4 2.59 TSH <0.02 Methimazole 10 mg PO BID [facility] Novolin R 0 unit SC Q6H [facility] Lantus 10 units SC HS Accucheck Q6 ACHS Hyperglycemia- steroids component as well tho patient needs better control GI: Fluid differential Pathologist review - few sheets of reactive mesothelial cells. scattered lymphocytes, macrophages, and RBCs negative for malignant cells. mildly inflamed pleural fluid negative for malignant cells. Daily CMP Senna/Docusate 50 mg - 8.6 mg 1 tab PO BID Vitamin A & D oint UD foilpak 1 ea TOP BID [facility] : Monitor I/Os Maintain [place]ill care Nephro: 250cc Q6H free water flushes BUN/Cr: Improving Monitor I/Os Daily CMP Heme: H&H stable Daily CBC ID: WBC increased MRSA bronchial culture Daily CBC Nystatin TOP TID [facility] Acetaminophen 650 mg DE Q6 PRN temperature >101 F. Stop dates in place. Vancomycin 1500 mg, 500 cc @ 250 cc/hr IVPB Q12H. Stop dates in place Imipenem/Cilastatin 1 Gm 250 cc @ 250 cc/hr IVPB Q8H [facility] Vanco trough 11/16 16.1. F/U random vanco level Prophylaxis: DVT: SCDs, Lovenox 110 mg SC Q12 GI: Protonix 40 mg IVP daily [facility]
--- NOTE | 2016-11-25 19:27 | CP.PCM.PN ---
Subjective - Date & Time of Evaluation Date of Evaluation: 11/25/16 Time of Evaluation: 10:33 - Subjective Subjective: Pt seen and examined in no apparent distress. No acute events overnight. Patient remains stable off BIPAP and tolerating ventimask. Patient denies headaches, chest pain, palpitations, subjective fevers or chills, nausea, vomiting, diarrhea or constipation at this time. Objective - Vital Signs/Intake and Output Vital Signs (last 24 hours): Temp Pulse Resp BP Pulse Ox 98 F 80 14 135/60 97 11/25/16 16:00 11/25/16 19:01 11/25/16 19:01 11/25/16 19:01 11/25/16 19:01 Intake and Output: 11/25/16 11/26/16 18:59 06:59 Intake Total 750 Output Total 755 Balance -5 - Medications Medications: Current Medications Acetaminophen (Tylenol 650mg/20.3ml Solution Ud) 650 mg GT Q6 PRN PRN Reason: Fever >100.4 F Last Admin: 11/16/16 08:59 Dose: 650 mg Amiodarone HCl (Cordarone) 200 mg PO Q8H [facility] Last Admin: 11/25/16 17:30 Dose: Not Given Budesonide (Pulmicort Respules) 0.25 mg INH RQ12 [facility] Last Admin: 11/25/16 07:51 Dose: 0.25 mg Diltiazem HCl (Cardizem) 60 mg PO Q6 [facility] Last Admin: 11/25/16 12:00 Dose: Not Given Diltiazem HCl (Cardizem) 5 mg IVP Q6H [facility] Last Admin: 11/25/16 15:31 Dose: 5 mg Enoxaparin Sodium (Lovenox) 110 mg SC Q12 [facility] Imipenem/Cilastatin Sodium 1, (000 mg/ Sodium Chloride) 250 mls @ 250 mls/hr IVPB Q8H [facility] Stop: 11/29/16 23:59 Last Admin: 11/25/16 13:26 Dose: 250 mls/hr Vancomycin/Sodium Chloride (Vancocin) 200 mls @ 166.6 mls/hr IVPB Q12H [facility] Stop: 12/03/16 22:00 Last Admin: 11/25/16 10:24 Dose: 166.6 mls/hr Lactated Ringer's (Lactated Ringer's) 1,000 mls @ 75 mls/hr IV .[id number] [facility] Last Admin: 11/25/16 15:14 Dose: 75 mls/hr Insulin Glargine (Lantus) 13 unit SC HS [facility] Last Admin: 11/24/16 21:23 Dose: 13 u Insulin Human Regular (Novolin R) 0 unit SC Q6 [facility] PRN Reason: Protocol Last Admin: 11/25/16 18:06 Dose: 2 unit Ipratropium [place] (Atrovent) 0.5 mg IH RQ12 [facility] Last Admin: 11/25/16 09:49 Dose: 0.5 mg Methimazole (Tapazole) 10 mg PO TID [facility] Last Admin: 11/25/16 17:31 Dose: Not Given Metoprolol Succinate (Toprol Xl) 12.5 mg PO DAILY [facility] Last Admin: 11/25/16 10:00 Dose: Not Given Pantoprazole Sodium (Protonix Inj) 40 mg IVP DAILY [facility] Vitamin A (Vitamin A & D Oint Ud Foilpak) 1 ea TOP BID [facility] Last Admin: 11/25/16 17:32 Dose: 1 ea - Labs Labs: 11/25/16 06:57 11/25/16 06:57 PT 12.0 SECONDS (9.7-12.2) 11/13/16 04:57 INR 1.1 11/13/16 04:57 APTT 38 SECONDS (21-34) H D 11/13/16 04:57 - Constitutional Appears: No Acute Distress, Chronically Ill - Head Exam Head Exam: ATRAUMATIC, NORMAL INSPECTION, NORMOCEPHALIC - Eye Exam Eye Exam: EOMI, Normal appearance, PERRL Pupil Exam: NORMAL ACCOMODATION, PERRL - ENT Exam ENT Exam: Mucous Membranes Moist, Normal Exam - Respiratory Exam Respiratory Exam: Decreased Breath Sounds, Rales, Wheezes - Cardiovascular Exam Cardiovascular Exam: REGULAR RHYTHM, +S1, +S2. absent: Murmur - GI/Abdominal Exam GI & Abdominal Exam: Soft, Normal Bowel Sounds. absent: Tenderness Assessment and Plan (1) Diabetes Status: Chronic (2) HTN (hypertension) Status: Chronic (3) Bilateral lower leg cellulitis Status: Deleted (4) Atrial fibrillation with rapid ventricular response Status: Acute (5) CHF (congestive heart failure) Status: Acute (6) Pleural effusion Status: Acute
[2016-11-25] MEDS: Enoxaparin 120 mg Syringe SC SCH (21:11)
[2016-11-25] MEDS: (Lantus) Insulin Glargine, Recombinant SC SCH (21:11)
--- NOTE | 2016-11-25 21:23 | CP.PCM.PN ---
Subjective - Date & Time of Evaluation Date of Evaluation: 11/25/16 Time of Evaluation: 21:21 - Subjective Subjective: uncontrolled IDDM & hyperthyroidism Objective - Vital Signs/Intake and Output Vital Signs (last 24 hours): Temp Pulse Resp BP Pulse Ox 98.2 F 73 15 128/59 L 96 11/25/16 20:00 11/25/16 20:02 11/25/16 20:02 11/25/16 20:02 11/25/16 20:02 Intake and Output: 11/25/16 11/26/16 18:59 06:59 Intake Total 750 150 Output Total 755 Balance -5 150 - Medications Medications: Current Medications Acetaminophen (Tylenol 650mg/20.3ml Solution Ud) 650 mg GT Q6 PRN PRN Reason: Fever >100.4 F Last Admin: 11/16/16 08:59 Dose: 650 mg Amiodarone HCl (Cordarone) 200 mg PO Q8H [facility] Last Admin: 11/25/16 17:30 Dose: Not Given Budesonide (Pulmicort Respules) 0.25 mg INH RQ12 [facility] Last Admin: 11/25/16 20:20 Dose: 0.25 mg Diltiazem HCl (Cardizem) 60 mg PO Q6 [facility] Last Admin: 11/25/16 12:00 Dose: Not Given Diltiazem HCl (Cardizem) 5 mg IVP Q6H [facility] Last Admin: 11/25/16 21:10 Dose: 5 mg Enoxaparin Sodium (Lovenox) 110 mg SC Q12 [facility] Last Admin: 11/25/16 21:11 Dose: 110 mg Imipenem/Cilastatin Sodium 1, (000 mg/ Sodium Chloride) 250 mls @ 250 mls/hr IVPB Q8H [facility] Stop: 11/29/16 23:59 Last Admin: 11/25/16 21:12 Dose: 250 mls/hr Vancomycin/Sodium Chloride (Vancocin) 200 mls @ 166.6 mls/hr IVPB Q12H [facility] Stop: 12/03/16 22:00 Last Admin: 11/25/16 10:24 Dose: 166.6 mls/hr Lactated Ringer's (Lactated Ringer's) 1,000 mls @ 75 mls/hr IV .[id number] [facility] Last Admin: 11/25/16 15:14 Dose: 75 mls/hr Insulin Glargine (Lantus) 13 unit SC HS [facility] Last Admin: 11/25/16 21:11 Dose: 13 u Insulin Human Regular (Novolin R) 0 unit SC Q6 [facility] PRN Reason: Protocol Last Admin: 11/25/16 18:06 Dose: 2 unit Ipratropium [place] (Atrovent) 0.5 mg IH RQ12 [facility] Last Admin: 11/25/16 20:20 Dose: 0.5 mg Methimazole (Tapazole) 10 mg PO TID [facility] Last Admin: 11/25/16 17:31 Dose: Not Given Metoprolol Succinate (Toprol Xl) 12.5 mg PO DAILY [facility] Last Admin: 11/25/16 10:00 Dose: Not Given Pantoprazole Sodium (Protonix Inj) 40 mg IVP DAILY [facility] Vitamin A (Vitamin A & D Oint Ud Foilpak) 1 ea TOP BID [facility] Last Admin: 11/25/16 17:32 Dose: 1 ea - Labs Labs: 11/25/16 06:57 11/25/16 06:57 PT 12.0 SECONDS (9.7-12.2) 11/13/16 04:57 INR 1.1 11/13/16 04:57 APTT 38 SECONDS (21-34) H D 11/13/16 04:57 Assessment and Plan (1) Diabetes mellitus, insulin dependent (IDDM), uncontrolled Assessment & Plan: ssessment & Plan: Endocrine consult f/u reason for consult: uncontrolled diabetes source : chrart review , pt awake , alert with OGT tube for bleeding unable to give history & as per chart review poor historian is 61 y/o admitted for a fib with rapid venttirucular resonse & DKA / bilateral lower extremities cellulites ,pt was intubated & also started on insulin drip glucose on admission 1023 . also was started on steroid 40 mg po bid , endocrine was contacted yesterday 11/12 for uncontrolled IDDM glucose in 300- 400 & also pt with hyperthyroidism on tapazole , blood glucose log :140-200's , off prednisone s/p steroids 125 mg dose yesterday O hypoglycemia Allergy NKDA Past medical history : HTN , pedal edema Past surgical history : not documented Psychiatry history : (+) psychiatry disorder Social history : (+)smoking , ETOH use , illicit drug use Family history : unknown ROS: Constitutional: no fever ,tiredness/weakness .HEENT: no earache, change in voice .Respiratory: no cough, sob . CVS :no chest pain, no palpitations . Abdomen : no abdominal pain, no nausea /vomiting , no change bowel movement . 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 Extremities : (+) edema , no tremors . Skin: no itching, no rash Physical exam Well developed , awake , on ventimask , on continuos feeding VSS pulse 82 , T 98.2 HEENT: norm cephalic, atraumatic , no lid lag , no exophthalmos , mild stare NECK: supple, no palpable lymphadenopathy THYROID: unable to palpable thyroid , not tender CHEST: fair air entry, bilateral, CVS: S1,S2 , ABDOMEN: bowel sound present, benign, obese, no wide purple striae , no bruises EXTREMITIES: bilateral hyper pigmented skin with edema, clubbing or cyanosis, no palpable hand tremors Skin : acanthosis nigricans lab: 11/25 Ft4 2.01, wbc 10.9 11/16 FT4 2.59 , tsh <0.02 , T4 8.88 , wbc 9 , LFT wnl thyroid antibodies (-) tsh < 0.02 ,ft4 2.31 , t4 12.1 , a1c 14 , wbc 10.4 Assessment uncontrolled IDDM s/p steroids induced hyperglycemia , last dose yesterday 11/23 hyperthyroidisim with afib , on cardiazem & lopressor bilateral cellutitis a fib bleeding /fever /sepsis obesity Plan - continue lantus @ 13 units @ hs first today continue humalin R low dose coverage q6h on tapazole 10 mg po tid obtain T4 Status: Chronic (2) Hyperthyroidism Status: Chronic (3) Atrial fibrillation with rapid ventricular response Status: Acute (4) Bilateral lower leg cellulitis Status: Acute (5) Steroid-induced hyperglycemia Status: Acute
--- NOTE | 2016-11-25 21:53 | PROCN ---
DATE: 11/15/2016 Bronchoscopy required for left lower lobe lung collapse that seems to be secondary to accumulation of secretions. Consent by 2 attendings since the patient has no family to consent for her and she cannot consent (she is seen intubated and sedated). Procedure done at bedside with propofol 100 mg of propofol and versed. Patient was oxygenated with 100% FiO2 during the procedure. Bronchoscope first introduced to the left main bronchus with no secretions visualized in the bigger portions of bronchi, only deep down at the narrower part of the bronchi thick white green secretions where visualized and suctioned. Right side of the lung also with secretions, but much less amount. suctionedor occlusions seen, when bronchoscope was advanced in the more narrow parts of the bronchi, thick white-greenish secretions were suctioned out. Sample was taken for cultures. No collapsed bronchi where visualized. The patient tolerated procedure well. Morena Dean MD cc: [id number] TT: 11/25/2016 21:52:17 Confirmation # [id number] Dictation # [id number] jn MALCOM
--- NOTE | 2016-11-25 21:55 | PROCN ---
DATE: 11/16/2016 Bronchoscopy required for continuous left lower lobe lung collapse that seems to be secondary to accumulation of secretions. Consent by 2 attendings since the patient has no family to consent for her and she cannot consent (she is seen intubated and sedated). Procedure done at bedside with propofol 100 mg of propofol and versed. Patient was oxygenated with 100% FiO2 during the procedure. Bronchoscope introduced through ET tube, secretions where visualized at [place], very abundant on the left main bronchi. Bronchoscope advanced in all lobes and secretions suctioned. Once left side was washed out, right side was washed out from secretions as well. Secretions where thick white-greenish secretions and seem to be more abundant than yesterday. Very few secretions coming out through ET tube. No collapsed bronchi where visualized. The patient tolerated procedure well. Morena Dean MD cc: [id number] TT: 11/25/2016 21:55:10 Confirmation # [id number] Dictation # [id number] jn MTDD
--- NOTE | 2016-11-25 21:58 | PROCN ---
DATE: 11/18/2016 Bronchoscopy required for left lower lobe lung collapse that seems to be secondary to accumulation of secretions. Consent by 2 attendings since the patient has no family to consent for her and she cannot consent (she is seen intubated and sedated). Procedure done at bedside with propofol 100 mg of propofol and versed. Patient was oxygenated with 100% FiO2 during the procedure. Bronchoscope first introduced to the left main bronchus, secretions still present, but in less amount than yesterday. All secretions suctioned on both sides of the lungs. No collapsed bronchi where visualized. Mucosa healthy looking The patient tolerated procedure well. Morena Dean MD cc: [id number] TT: 11/25/2016 21:57:30 Confirmation # [id number] Dictation # [id number] jn MTDD
[2016-11-26] MEDS: Lactated Ringer's 1,000 ML IV SCH (04:24)
[2016-11-26 06:39] LABS: BASO % 0.3 % (0.0-2.0); EOS # 0.2 K/uL (0.0-0.7); HEMATOCRIT 33.7 % (34.0-47.0); LYMPH # 1.4 K/uL (1.0-4.3); LYMPH % 15.8 % (20.0-40.0); MEAN CORPUSCULAR HGB CONC 32.6 g/dL (33.0-37.0); MEAN PLATELET VOLUME 8.4 fL (7.2-11.7); MONO # 0.6 K/uL (0.0-0.8); MONO % 6.3 % (0.0-10.0); RED CELL DISTRIBUTION WIDTH 14.6 % (11.5-14.5); WHITE BLOOD COUNT 8.9 K/uL (4.8-10.8)
[2016-11-26 06:51] LABS: CHLORIDE 100 mmol/L (98-107); POTASSIUM 3.3 mmol/L (3.6-5.2); SODIUM 141 mmol/L (132-148)
[2016-11-26 06:53] LABS: ALB/GLOB RATIO 0.9 (1.0-2.1); AST/SGOT 16 U/L (14-36); CARBON DIOXIDE 34 mmol/L (22-30); GFR AFRICAN-AMERICAN > 60; TOTAL PROTEIN 4.4 g/dL (6.3-8.3)
[2016-11-26 06:54] LABS: ALKALINE PHOSPHATASE 54 U/L (38-126); ALT/SGPT 31 U/L (9-52); BLOOD UREA NITROGEN 20 mg/dL (7-17); CALCIUM 7.9 mg/dl (8.6-10.4); GLUCOSE,RANDOM 71 mg/dL (65-105); MAGNESIUM 1.9 mg/dL (1.6-2.3); PHOSPHOROUS 2.6 mg/dL (2.5-4.5)
[2016-11-26] MEDS: (Novolin R) Insulin Human Regular 100 units/ml vial SC SCH (06:59)
[2016-11-26 07:11] LABS: T4 7.35 ug/dL (5.5-11.0)
[2016-11-26] MEDS: Budesonide 0.25 mg/2 ml Inhal Susp UD INH SCH (07:50)
[2016-11-26] MEDS: Ipratropium 0.02% Inhal Soln (0.5 mg/2.5 ml) UD IH SCH (07:50)
[2016-11-26] MEDS: Enoxaparin 120 mg Syringe SC SCH ×2 (10:00→22:39)
[2016-11-26] MEDS: Vancomycin 1 gm/NS 200 ml 200 ML IVPB SCH ×2 (10:01→22:32)
[2016-11-26] MEDS: Vitamins A & D Oint UD Foilpak TOP SCH ×2 (10:01→18:37)
[2016-11-26] MEDS: Metoprolol Succinate 12.5 mg XL PO SCH ×2 (10:01→12:11)
--- NOTE | 2016-11-26 10:14 | RAD ---
HISTORY: s/p extubation COMPARISON: 11/25/2016 FINDINGS: LUNGS: Interval removal of a right central venous catheter. Persistent moderate to severe venous congestion with bibasilar airspace opacities and moderate bilateral pleural effusions. PLEURA: As above. CARDIOVASCULAR: Cardiomegaly. OSSEOUS STRUCTURES: No significant abnormalities. VISUALIZED UPPER ABDOMEN: Normal. OTHER FINDINGS: None. IMPRESSION: Interval removal of a right central venous catheter. Persistent moderate to severe venous congestion with bibasilar airspace opacities and moderate bilateral pleural effusions.
[2016-11-26] MEDS ORDERED: Propofol 10 mg/ml Inj (100 ml) IV PRN (10:47)
[2016-11-26] MEDS ORDERED: Propofol 10 mg/ml Inj (20 ML) ONE (11:25)
[2016-11-26] MEDS ORDERED: Propofol 10 mg/ml Inj (20 ML) IV ONE (11:45)
[2016-11-26] MEDS: Potassium Chloride 10 mEq 100 ML IVPB SCH ×4 (12:10→16:01)
--- NOTE | 2016-11-26 14:29 | CP.CCUPN ---
CCU Subjective - Physician Review Events Since Last Encounter (Free Text): 11/26/16 14:21 patient seen and examined in the morning, stable, was able to vocalize some words this am. Placed NG tube today with some mild sedations, feeds started. ros unable since her speech is very minimal pe: bp:152/92 mmhg, hr 90 bpm, rr 13, O2 99% on 2 L NC, afebrile alert, awake, follows commands, speech is very, very poor, but improving sitting in cardiac chair, in no distress s1, s2 irregularly irregular lungs good bilateral air of entry abdomen soft, global, non tender edema getting down a/p: pneumonia most likely resolved, d/c imipenem today, might d/c vancomycin in a few more days, still secretions in the back of the throat, send sputum culture to check for clearance of mrsa in sputum Dysphagia: placed NG tube today and getting feeds through it. atrial fibrillaiton: on full anticoagulation DM: hold lantus since bs too tight and re-started feeds only today Hyperthyroidism CCU Objective - Vital Signs / Intake & Output Intake and Output (Last 8hrs): Intake & Output 11/25/16 11/26/16 11/26/16 22:59 06:59 14:59 Intake Total 850 1050 75 Output Total 825 1195 Balance 25 -145 75 Weight 255 lb 11.779 oz Intake: Intake, IV Amount 850 1050 75 Right Distal Port 850 425 left ej 625 75 Output: Urine 825 1195 Urethral ([place]) 825 1195 Other: # Bowel Movements 1 - Physical Exam Head: Positive for: Atraumatic, Normocephalic Pupils: Positive for: PERRL. Negative for: Sluggish, Non-Reactive Extroacular Muscles: Positive for: EOMI. Negative for: Gaze Palsy Conjunctiva: Positive for: Normal. Negative for: Injected, Icteric Mouth: Positive for: Moist Mucous Membranes Nose (Internal): Positive for: Other (packing in place) Neck: Positive for: Normal Range of Motion, Trachea Midline. Negative for: Meningeal Signs, MIDLINE TENDERNESS, Paraspinal Tenderness, JVD, Lymphadenopathy , Bruit, Other Respiratory/Chest: Positive for: Good Air Exchange. Negative for: Rales Cardiovascular: Positive for: Irregular Rhythm, Peripheal Pulses Present. Negative for: Murmurs, Normal S1, S2 Abdomen: Negative for: Tenderness, Distention Upper Extremity: Positive for: Normal Inspection Lower Extremity: Positive for: Edema Neurological: Negative for: Speech Normal Skin: Positive for: Warm, Dry, Rashes Psychiatric: Positive for: Alert, Normal Affect, Normal Mood - Medications Active Medications: Active Medications Generic Name Dose Route Start Last Admin Trade Name Freq PRN Reason Stop Dose Admin Acetaminophen 650 mg 11/14/16 20:10 11/16/16 08:59 Tylenol 650mg/20.3ml Solution Ud GT 650 mg Q6 PRN Administration Fever >100.4 F Amiodarone HCl 200 mg 11/15/16 18:00 11/26/16 12:11 Cordarone PO 200 mg Q8H [facility] Administration Budesonide 0.25 mg 11/24/16 20:00 11/26/16 07:50 Pulmicort Respules INH 0.25 mg RQ12 [facility] Administration Diltiazem HCl 60 mg 11/15/16 12:00 11/25/16 12:00 Cardizem PO Not Given Q6 [facility] Diltiazem HCl 5 mg 11/25/16 14:45 11/26/16 09:07 Cardizem IVP 5 mg Q6H [facility] Administration Enoxaparin Sodium 110 mg 11/25/16 22:00 11/26/16 10:00 Lovenox SC 110 mg Q12 [facility] Administration Vancomycin/Sodium Chloride 200 mls @ 166.6 mls/hr 11/19/16 10:00 11/26/16 10:01 Vancocin IVPB 12/03/16 22:00 166.6 mls/hr Q12H [facility] Administration Potassium Chloride 100 mls @ 100 mls/hr 11/26/16 10:45 11/26/16 12:10 Potassium Chloride 10 Meq/100 Ml IVPB 11/26/16 14:44 100 mls/hr Q1H [facility] Administration Insulin Glargine 13 unit 11/23/16 22:00 11/25/16 21:11 Lantus SC 13 u HS [facility] Administration Insulin Human Regular 0 unit 11/17/16 08:38 11/26/16 06:59 Novolin R SC Not Given Q6 [facility] Protocol Ipratropium [place] 0.5 mg 11/25/16 09:30 11/26/16 07:50 Atrovent IH 0.5 mg RQ12 [facility] Administration Methimazole 10 mg 11/18/16 10:00 11/26/16 10:01 Tapazole PO Not Given TID [facility] Metoprolol Succinate 12.5 mg 11/16/16 10:30 11/26/16 12:11 Toprol Xl PO 12.5 mg DAILY [facility] Administration Pantoprazole Sodium 40 mg 11/26/16 10:00 11/26/16 10:00 Protonix Inj IVP 40 mg DAILY [facility] Administration Vitamin A 1 ea 11/09/16 18:00 11/26/16 10:01 Vitamin A & D Oint Ud Foilpak TOP 1 ea BID [facility] Administration - Patient Studies Lab Studies: Lab Studies 11/26/16 11/26/16 11/26/16 Range/Units 12:10 06:35 06:34 WBC 8.9 (4.8-10.8) K/uL RBC 3.78 L (3.80-5.20) Mil/uL Hgb 11.0 (11.0-16.0) g/dL Hct 33.7 L (34.0-47.0) % MCV 89.0 (81.0-99.0) fL MCH 29.0 (27.0-31.0) pg MCHC 32.6 L (33.0-37.0) g/dL RDW 14.6 H (11.5-14.5) % Plt Count 171 (130-400) K/uL MPV 8.4 (7.2-11.7) fL Neut % (Auto) 75.6 H (50.0-75.0) % Lymph % (Auto) 15.8 L (20.0-40.0) % [place] % (Auto) 6.3 (0.0-10.0) % Eos % (Auto) 2.0 (0.0-4.0) % Baso % (Auto) 0.3 (0.0-2.0) % Neut # 6.7 (1.8-7.0) K/uL Lymph # 1.4 (1.0-4.3) K/uL [place] # 0.6 (0.0-0.8) K/uL Eos # 0.2 (0.0-0.7) K/uL Baso # 0.0 (0.0-0.2) K/uL Sodium 141 (132-148) mmol/L Potassium 3.3 L (3.6-5.2) mmol/L Chloride 100 (98-107) mmol/L Carbon Dioxide 34 H (22-30) mmol/L Anion Gap 10 (10-20) BUN 20 H (7-17) mg/dL Creatinine 0.4 L (0.7-1.2) MG/DL Est GFR ( Amer) > 60 Est GFR (Non-Af Amer) > 60 POC Glucose (mg/dL) 82 (65-110) mg/dL Random Glucose 71 (65-105) mg/dL Calcium 7.9 L (8.6-10.4) mg/dl Phosphorus 2.6 (2.5-4.5) mg/dL Magnesium 1.9 (1.6-2.3) mg/dL Total Bilirubin 1.0 (0.2-1.3) mg/dL AST 16 (14-36) U/L ALT 31 (9-52) U/L Alkaline Phosphatase 54 (38-126) U/L Total Protein 4.4 L (6.3-8.3) g/dL Albumin 2.1 L (3.5-5.0) g/dL Globulin 2.4 (2.2-3.9) gm/dL Albumin/Globulin Ratio 0.9 L (1.0-2.1) Thyroxine (T4) 7.35 (5.5-11.0) ug/dL Total T3 1.00 L (1.49-2.60) nmol/L 11/26/16 11/25/16 11/25/16 Range/Units 06:12 23:44 17:49 WBC (4.8-10.8) K/uL RBC (3.80-5.20) Mil/uL Hgb (11.0-16.0) g/dL Hct (34.0-47.0) % MCV (81.0-99.0) fL MCH (27.0-31.0) pg MCHC (33.0-37.0) g/dL RDW (11.5-14.5) % Plt Count (130-400) K/uL MPV (7.2-11.7) fL Neut % (Auto) (50.0-75.0) % Lymph % (Auto) (20.0-40.0) % [place] % (Auto) (0.0-10.0) % Eos % (Auto) (0.0-4.0) % Baso % (Auto) (0.0-2.0) % Neut # (1.8-7.0) K/uL Lymph # (1.0-4.3) K/uL [place] # (0.0-0.8) K/uL Eos # (0.0-0.7) K/uL Baso # (0.0-0.2) K/uL Sodium (132-148) mmol/L Potassium (3.6-5.2) mmol/L Chloride (98-107) mmol/L Carbon Dioxide (22-30) mmol/L Anion Gap (10-20) BUN (7-17) mg/dL Creatinine (0.7-1.2) MG/DL Est GFR ( Amer) Est GFR (Non-Af Amer) POC Glucose (mg/dL) 75 150 H 203 H (65-110) mg/dL Random Glucose (65-105) mg/dL Calcium (8.6-10.4) mg/dl Phosphorus (2.5-4.5) mg/dL Magnesium (1.6-2.3) mg/dL Total Bilirubin (0.2-1.3) mg/dL AST (14-36) U/L ALT (9-52) U/L Alkaline Phosphatase (38-126) U/L Total Protein (6.3-8.3) g/dL Albumin (3.5-5.0) g/dL Globulin (2.2-3.9) gm/dL Albumin/Globulin Ratio (1.0-2.1) Thyroxine (T4) (5.5-11.0) ug/dL Total T3 (1.49-2.60) nmol/L Laboratory Results - last 24 hr 11/25/16 11/25/16 11/26/16 17:49 23:44 06:12 WBC RBC Hgb Hct MCV MCH MCHC RDW Plt Count MPV Neut % (Auto) Lymph % (Auto) [place] % (Auto) Eos % (Auto) Baso % (Auto) Neut # Lymph # [place] # Eos # Baso # Sodium Potassium Chloride Carbon Dioxide Anion Gap BUN Creatinine Est GFR ( Amer) Est GFR (Non-Af Amer) POC Glucose (mg/dL) 203 H 150 H 75 Random Glucose Calcium Phosphorus Magnesium Total Bilirubin AST ALT Alkaline Phosphatase Total Protein Albumin Globulin Albumin/Globulin Ratio Thyroxine (T4) Total T3 11/26/16 11/26/16 11/26/16 06:34 06:35 12:10 WBC 8.9 RBC 3.78 L Hgb 11.0 Hct 33.7 L MCV 89.0 MCH 29.0 MCHC 32.6 L RDW 14.6 H Plt Count 171 MPV 8.4 Neut % (Auto) 75.6 H Lymph % (Auto) 15.8 L [place] % (Auto) 6.3 Eos % (Auto) 2.0 Baso % (Auto) 0.3 Neut # 6.7 Lymph # 1.4 [place] # 0.6 Eos # 0.2 Baso # 0.0 Sodium 141 Potassium 3.3 L Chloride 100 Carbon Dioxide 34 H Anion Gap 10 BUN 20 H Creatinine 0.4 L Est GFR ( Amer) > 60 Est GFR (Non-Af Amer) > 60 POC Glucose (mg/dL) 82 Random Glucose 71 Calcium 7.9 L Phosphorus 2.6 Magnesium 1.9 Total Bilirubin 1.0 AST 16 ALT 31 Alkaline Phosphatase 54 Total Protein 4.4 L Albumin 2.1 L Globulin 2.4 Albumin/Globulin Ratio 0.9 L Thyroxine (T4) 7.35 Total T3 1.00 L Fingerstick Blood Sugar Results: 75
--- NOTE | 2016-11-26 20:26 | CP.PCM.PN ---
Subjective - Date & Time of Evaluation Date of Evaluation: 11/26/16 Time of Evaluation: 20:30 - Subjective Subjective: patient seen and examined in the intensive care unit. Lying comfortably in no acute distress Open eyes to stimuli Afebrile Objective - Vital Signs/Intake and Output Vital Signs (last 24 hours): Temp Pulse Resp BP Pulse Ox 96.2 F L 95 H 11 L 170/103 H 98 11/26/16 16:00 11/26/16 20:01 11/26/16 20:01 11/26/16 20:01 11/26/16 20:01 Intake and Output: 11/26/16 11/27/16 18:59 06:59 Intake Total 1190.5 Balance 1190.5 - Medications Medications: Current Medications Acetaminophen (Tylenol 650mg/20.3ml Solution Ud) 650 mg GT Q6 PRN PRN Reason: Fever >100.4 F Last Admin: 11/16/16 08:59 Dose: 650 mg Amiodarone HCl (Cordarone) 200 mg PO Q8H [facility] Last Admin: 11/26/16 18:24 Dose: Not Given Budesonide (Pulmicort Respules) 0.25 mg INH RQ12 [facility] Last Admin: 11/26/16 07:50 Dose: 0.25 mg Diltiazem HCl (Cardizem) 60 mg PO Q6 [facility] Last Admin: 11/25/16 12:00 Dose: Not Given Diltiazem HCl (Cardizem) 5 mg IVP Q6H [facility] Last Admin: 11/26/16 14:36 Dose: 5 mg Enoxaparin Sodium (Lovenox) 110 mg SC Q12 [facility] Last Admin: 11/26/16 10:00 Dose: 110 mg Vancomycin/Sodium Chloride (Vancocin) 200 mls @ 166.6 mls/hr IVPB Q12H [facility] Stop: 12/03/16 22:00 Last Admin: 11/26/16 10:01 Dose: 166.6 mls/hr Insulin Glargine (Lantus) 13 unit SC HS [facility] Last Admin: 11/25/16 21:11 Dose: 13 u Insulin Human Regular (Novolin R) 0 unit SC Q6 [facility] PRN Reason: Protocol Last Admin: 11/26/16 06:59 Dose: Not Given Ipratropium [place] (Atrovent) 0.5 mg IH RQ12 [facility] Last Admin: 11/26/16 07:50 Dose: 0.5 mg Methimazole (Tapazole) 10 mg PO TID [facility] Last Admin: 11/26/16 18:24 Dose: Not Given Metoprolol Succinate (Toprol Xl) 12.5 mg PO DAILY [facility] Last Admin: 11/26/16 12:11 Dose: 12.5 mg Pantoprazole Sodium (Protonix Inj) 40 mg IVP DAILY [facility] Last Admin: 11/26/16 10:00 Dose: 40 mg Vitamin A (Vitamin A & D Oint Ud Foilpak) 1 ea TOP BID [facility] Last Admin: 11/26/16 18:37 Dose: 1 ea - Labs Labs: 11/26/16 06:34 11/26/16 06:35 PT 12.0 SECONDS (9.7-12.2) 11/13/16 04:57 INR 1.1 11/13/16 04:57 APTT 38 SECONDS (21-34) H D 11/13/16 04:57 - Constitutional Appears: No Acute Distress - Head Exam Head Exam: ATRAUMATIC, NORMOCEPHALIC - ENT Exam ENT Exam: Mucous Membranes Moist - Neck Exam Neck Exam: Normal Inspection - Respiratory Exam Respiratory Exam: Decreased Breath Sounds - Cardiovascular Exam Cardiovascular Exam: Irregular Rhythm - GI/Abdominal Exam GI & Abdominal Exam: Soft, Normal Bowel Sounds Assessment and Plan (1) Pneumonia Assessment & Plan: continue nebulizer treatment and IV antibiotics and follow-up chest x-ray awaiting transfer to floor Status: Acute (2) Atrial fibrillation with rapid ventricular response Status: Acute
[2016-11-26] MEDS ORDERED: Dextrose 5%/0.45% NS 1,000 ML IV SCH (21:45)
[2016-11-27 06:49] LABS: BASO % 0.1 % (0.0-2.0); EOS # 0.2 K/uL (0.0-0.7); EOS % 2.2 % (0.0-4.0); HEMATOCRIT 36.1 % (34.0-47.0); LYMPH # 1.1 K/uL (1.0-4.3); LYMPH % 16.5 % (20.0-40.0); MEAN CELL VOLUME 89.2 fL (81.0-99.0); MEAN CORPUSCULAR HEMOGLOBIN 28.8 pg (27.0-31.0); MEAN CORPUSCULAR HGB CONC 32.3 g/dL (33.0-37.0); MEAN PLATELET VOLUME 8.9 fL (7.2-11.7); MONO # 0.5 K/uL (0.0-0.8); MONO % 6.6 % (0.0-10.0); WHITE BLOOD COUNT 6.9 K/uL (4.8-10.8)
[2016-11-27 06:53] LABS: CHLORIDE 96 mmol/L (98-107); POTASSIUM 4.5 mmol/L (3.6-5.2); SODIUM 138 mmol/L (132-148)
[2016-11-27 06:55] LABS: ALKALINE PHOSPHATASE 50 U/L (38-126); ALT/SGPT 29 U/L (9-52); AST/SGOT 45 U/L (14-36); BILIRUBIN,TOTAL 1.6 mg/dL (0.2-1.3); BLOOD UREA NITROGEN 17 mg/dL (7-17); CARBON DIOXIDE 33 mmol/L (22-30); GFR AFRICAN-AMERICAN > 60; GLUCOSE,RANDOM 112 mg/dL (65-105)
[2016-11-27 06:56] LABS: CALCIUM 7.7 mg/dl (8.6-10.4); MAGNESIUM 1.9 mg/dL (1.6-2.3); PHOSPHOROUS 3.1 mg/dL (2.5-4.5)
[2016-11-27 06:58] LABS: ALB/GLOB RATIO 0.9 (1.0-2.1)
[2016-11-27] MEDS: Ipratropium 0.02% Inhal Soln (0.5 mg/2.5 ml) UD IH SCH ×2 (07:31→19:32)
[2016-11-27] MEDS: Budesonide 0.25 mg/2 ml Inhal Susp UD INH SCH ×2 (07:32→19:32)
[2016-11-27] MEDS: Metoprolol Succinate 12.5 mg XL PO SCH (09:31)
[2016-11-27] MEDS: Enoxaparin 120 mg Syringe SC SCH ×2 (09:32→21:05)
[2016-11-27] MEDS: Vitamins A & D Oint UD Foilpak TOP SCH ×2 (09:32→17:30)
[2016-11-27] MEDS: Vancomycin 1 gm/NS 200 ml 200 ML IVPB SCH ×2 (09:54→21:04)
[2016-11-27] MEDS ORDERED: Propofol 10 mg/ml Inj (20 ML) IV PRN (10:33)
--- NOTE | 2016-11-27 12:52 | CP.PCM.PN ---
Subjective - Date & Time of Evaluation Date of Evaluation: 11/26/16 Time of Evaluation: 11:15 - Subjective Subjective: Pt seen & examined, continues to improve, she is more alert, responding, she is weak, s/p DKA, resp failure Pnemonia Objective - Vital Signs/Intake and Output Vital Signs (last 24 hours): Temp Pulse Resp BP Pulse Ox 98.2 F 99 H 20 151/82 H 96 11/27/16 12:00 11/27/16 12:00 11/27/16 12:00 11/27/16 12:05 11/27/16 12:00 Intake and Output: 11/27/16 11/27/16 06:59 18:59 Intake Total 716 400 Output Total 700 230 Balance 16 170 - Medications Medications: Current Medications Acetaminophen (Tylenol 650mg/20.3ml Solution Ud) 650 mg GT Q6 PRN PRN Reason: Fever >100.4 F Last Admin: 11/16/16 08:59 Dose: 650 mg Amiodarone HCl (Cordarone) 200 mg PO Q8H [facility] Last Admin: 11/27/16 09:53 Dose: Not Given Budesonide (Pulmicort Respules) 0.25 mg INH RQ12 [facility] Last Admin: 11/27/16 07:32 Dose: 0.25 mg Diltiazem HCl (Cardizem) 60 mg PO Q6 [facility] Last Admin: 11/27/16 12:34 Dose: 60 mg Enoxaparin Sodium (Lovenox) 110 mg SC Q12 [facility] Last Admin: 11/27/16 09:32 Dose: 110 mg Furosemide (Lasix) 40 mg IVP DAILY [facility] Last Admin: 11/27/16 12:05 Dose: 40 mg Vancomycin/Sodium Chloride (Vancocin) 200 mls @ 166.6 mls/hr IVPB Q12H [facility] Stop: 12/03/16 22:00 Last Admin: 11/27/16 09:54 Dose: 166.6 mls/hr Insulin Glargine (Lantus) 13 unit SC HS [facility] Last Admin: 11/25/16 21:11 Dose: 13 u Insulin Human Regular (Novolin R) 0 unit SC Q6 [facility] PRN Reason: Protocol Last Admin: 11/26/16 06:59 Dose: Not Given Ipratropium [place] (Atrovent) 0.5 mg IH RQ12 [facility] Last Admin: 11/27/16 07:31 Dose: 0.5 mg Methimazole (Tapazole) 10 mg PO TID [facility] Last Admin: 11/27/16 09:31 Dose: 10 mg Metoprolol Succinate (Toprol Xl) 12.5 mg PO DAILY [facility] Last Admin: 11/27/16 09:31 Dose: 12.5 mg Pantoprazole Sodium (Protonix Inj) 40 mg IVP DAILY [facility] Last Admin: 11/27/16 09:31 Dose: 40 mg Propofol (Diprivan) 20 mg IV ONCE PRN PRN Reason: Sedation Stop: 12/02/16 10:34 Last Admin: 11/27/16 12:08 Dose: 20 mg Vitamin A (Vitamin A & D Oint Ud Foilpak) 1 ea TOP BID [facility] Last Admin: 11/27/16 09:32 Dose: 1 ea - Labs Labs: 11/27/16 06:37 11/27/16 06:34 PT 12.0 SECONDS (9.7-12.2) 11/13/16 04:57 INR 1.1 11/13/16 04:57 APTT 38 SECONDS (21-34) H D 11/13/16 04:57 - Constitutional Appears: No Acute Distress, Chronically Ill - Head Exam Head Exam: ATRAUMATIC, NORMAL INSPECTION, NORMOCEPHALIC - Eye Exam Eye Exam: EOMI, Normal appearance, PERRL Pupil Exam: NORMAL ACCOMODATION, PERRL - Respiratory Exam Respiratory Exam: Decreased Breath Sounds, Rales, Rhonchi - Cardiovascular Exam Cardiovascular Exam: Irregular Rhythm, +S1, +S2 - GI/Abdominal Exam GI & Abdominal Exam: Soft, Normal Bowel Sounds. absent: Tenderness Assessment and Plan (1) Diabetes Status: Chronic (2) HTN (hypertension) Status: Chronic (3) Bilateral lower leg cellulitis Status: Deleted (4) Atrial fibrillation with rapid ventricular response Status: Acute (5) CHF (congestive heart failure) Status: Acute (6) Pleural effusion Status: Acute - Assessment and Plan (Free Text) Plan: pneumonia most likely resolved, d/c imipenem today, might d/c vancomycin in a few more days, still secretions in the back of the throat, send sputum culture to check for clearance of mrsa in sputum Dysphagia: placed NG tube today and getting feeds through it. atrial fibrillaiton: on full anticoagulation DM: hold lantus since bs too tight and re-started feeds only today Hyperthyroidism
--- NOTE | 2016-11-27 15:42 | CP.CCUPN ---
CCU Subjective - Physician Review Events Since Last Encounter (Free Text): 11/27/16 15:38 patient seen and examined in the morning, stable, able to vocalize some words and was able to eat a couple of spoons of apple puree, but cough with water. Replaced NG tube since she removed it yesterday. follows commands, alert and awake, sits in cardiac chair, saturates 97% with out oxygen. she is hungry and wants to eat pe: bp:138/70 mmhg, hr 82 bpm, rr 13, O2 95% on 2 L NC, afebrile alert, awake, follows commands, speech improving sitting in cardiac chair, in no distress s1, s2 irregularly irregular lungs good bilateral air of entry abdomen soft, global, non tender edema getting down a/p: pneumonia: on vancomycin only, today day 9, keep for 15 days, still cough has sputum, repeat sputum culture, if negative will d/c isolation Dysphagia: improving, NG tube placed and getting fed atrial fibrillaiton: on full anticoagulation and diltiazem DM: continue to hold lantus since bs are tight Hyperthyroidism CCU Objective - Vital Signs / Intake & Output Vital Signs (Last 4 hours): Vital Signs Temp Pulse Resp BP Pulse Ox 11/27/16 15:00 85 16 138/70 96 11/27/16 14:00 99 H 18 146/76 99 11/27/16 13:00 94 H 18 98 11/27/16 12:05 151/82 H 11/27/16 12:00 98.2 F 99 H 20 178/68 H 96 Intake and Output (Last 8hrs): Intake & Output 11/27/16 11/27/16 11/27/16 06:59 14:59 22:59 Intake Total 533 640 35 Output Total 450 930 350 Balance 83 -290 -315 Weight 231 lb Intake: Intake, IV Amount 533 400 left ej 533 400 Tube Feeding 60 35 Other 180 Output: Urine 450 930 350 Urethral ([place]) 450 930 350 Other: # Bowel Movements 1 - Physical Exam Head: Positive for: Atraumatic, Normocephalic Pupils: Positive for: PERRL. Negative for: Sluggish, Non-Reactive Extroacular Muscles: Positive for: EOMI. Negative for: Gaze Palsy Conjunctiva: Positive for: Normal. Negative for: Injected, Icteric Mouth: Positive for: Moist Mucous Membranes Nose (Internal): Positive for: Other (packing in place) Neck: Positive for: Normal Range of Motion, Trachea Midline. Negative for: Meningeal Signs, MIDLINE TENDERNESS, Paraspinal Tenderness, JVD, Lymphadenopathy , Bruit, Other Respiratory/Chest: Positive for: Good Air Exchange. Negative for: Rales Cardiovascular: Positive for: Irregular Rhythm, Peripheal Pulses Present. Negative for: Murmurs, Normal S1, S2 Abdomen: Negative for: Tenderness, Distention Upper Extremity: Positive for: Normal Inspection Lower Extremity: Positive for: Edema Neurological: Negative for: Speech Normal Skin: Positive for: Warm, Dry, Rashes Psychiatric: Positive for: Alert, Normal Affect, Normal Mood - Medications Active Medications: Active Medications Generic Name Dose Route Start Last Admin Trade Name Freq PRN Reason Stop Dose Admin Acetaminophen 650 mg 11/14/16 20:10 11/16/16 08:59 Tylenol 650mg/20.3ml Solution Ud GT 650 mg Q6 PRN Administration Fever >100.4 F Amiodarone HCl 200 mg 11/15/16 18:00 11/27/16 09:53 Cordarone PO Not Given Q8H [facility] Budesonide 0.25 mg 11/24/16 20:00 11/27/16 07:32 Pulmicort Respules INH 0.25 mg RQ12 [facility] Administration Diltiazem HCl 60 mg 11/15/16 12:00 11/27/16 12:34 Cardizem PO 60 mg Q6 [facility] Administration Enoxaparin Sodium 110 mg 11/25/16 22:00 11/27/16 09:32 Lovenox SC 110 mg Q12 [facility] Administration Furosemide 40 mg 11/27/16 12:30 11/27/16 12:05 Lasix IVP 40 mg DAILY [facility] Administration Vancomycin/Sodium Chloride 200 mls @ 166.6 mls/hr 11/19/16 10:00 11/27/16 09:54 Vancocin IVPB 12/03/16 22:00 166.6 mls/hr Q12H [facility] Administration Insulin Glargine 13 unit 11/23/16 22:00 11/25/16 21:11 Lantus SC 13 u HS [facility] Administration Insulin Human Regular 0 unit 11/17/16 08:38 11/26/16 06:59 Novolin R SC Not Given Q6 [facility] Protocol Ipratropium [place] 0.5 mg 11/25/16 09:30 11/27/16 07:31 Atrovent IH 0.5 mg RQ12 [facility] Administration Methimazole 10 mg 11/18/16 10:00 11/27/16 14:31 Tapazole PO 10 mg TID [facility] Administration Metoprolol Succinate 12.5 mg 11/16/16 10:30 11/27/16 09:31 Toprol Xl PO 12.5 mg DAILY [facility] Administration Pantoprazole Sodium 40 mg 11/26/16 10:00 11/27/16 09:31 Protonix Inj IVP 40 mg DAILY [facility] Administration Propofol 20 mg 11/27/16 10:33 11/27/16 12:08 Diprivan IV 12/02/16 10:34 20 mg ONCE PRN Administration Sedation Vitamin A 1 ea 11/09/16 18:00 11/27/16 09:32 Vitamin A & D Oint Ud Foilpak TOP 1 ea BID [facility] Administration - Patient Studies Lab Studies: Lab Studies 11/27/16 11/27/16 11/27/16 Range/Units 12:20 06:37 06:34 WBC 6.9 (4.8-10.8) K/uL RBC 4.05 (3.80-5.20) Mil/uL Hgb 11.7 (11.0-16.0) g/dL Hct 36.1 (34.0-47.0) % MCV 89.2 (81.0-99.0) fL MCH 28.8 (27.0-31.0) pg MCHC 32.3 L (33.0-37.0) g/dL RDW 15.0 H (11.5-14.5) % Plt Count 174 (130-400) K/uL MPV 8.9 (7.2-11.7) fL Neut % (Auto) 74.6 (50.0-75.0) % Lymph % (Auto) 16.5 L (20.0-40.0) % [place] % (Auto) 6.6 (0.0-10.0) % Eos % (Auto) 2.2 (0.0-4.0) % Baso % (Auto) 0.1 (0.0-2.0) % Neut # 5.1 (1.8-7.0) K/uL Lymph # 1.1 (1.0-4.3) K/uL [place] # 0.5 (0.0-0.8) K/uL Eos # 0.2 (0.0-0.7) K/uL Baso # 0.0 (0.0-0.2) K/uL Sodium 138 (132-148) mmol/L Potassium 4.5 (3.6-5.2) mmol/L Chloride 96 L (98-107) mmol/L Carbon Dioxide 33 H (22-30) mmol/L Anion Gap 14 (10-20) BUN 17 (7-17) mg/dL Creatinine 0.3 L (0.7-1.2) MG/DL Est GFR ( Amer) > 60 Est GFR (Non-Af Amer) > 60 POC Glucose (mg/dL) 114 H (65-110) mg/dL Random Glucose 112 H (65-105) mg/dL Calcium 7.7 L (8.6-10.4) mg/dl Phosphorus 3.1 (2.5-4.5) mg/dL Magnesium 1.9 (1.6-2.3) mg/dL Total Bilirubin 1.6 H (0.2-1.3) mg/dL AST 45 H D (14-36) U/L ALT 29 (9-52) U/L Alkaline Phosphatase 50 (38-126) U/L Total Protein 5.0 L (6.3-8.3) g/dL Albumin 2.3 L (3.5-5.0) g/dL Globulin 2.7 (2.2-3.9) gm/dL Albumin/Globulin Ratio 0.9 L (1.0-2.1) 11/27/16 11/27/16 11/26/16 Range/Units 05:20 00:02 18:45 WBC (4.8-10.8) K/uL RBC (3.80-5.20) Mil/uL Hgb (11.0-16.0) g/dL Hct (34.0-47.0) % MCV (81.0-99.0) fL MCH (27.0-31.0) pg MCHC (33.0-37.0) g/dL RDW (11.5-14.5) % Plt Count (130-400) K/uL MPV (7.2-11.7) fL Neut % (Auto) (50.0-75.0) % Lymph % (Auto) (20.0-40.0) % [place] % (Auto) (0.0-10.0) % Eos % (Auto) (0.0-4.0) % Baso % (Auto) (0.0-2.0) % Neut # (1.8-7.0) K/uL Lymph # (1.0-4.3) K/uL [place] # (0.0-0.8) K/uL Eos # (0.0-0.7) K/uL Baso # (0.0-0.2) K/uL Sodium (132-148) mmol/L Potassium (3.6-5.2) mmol/L Chloride (98-107) mmol/L Carbon Dioxide (22-30) mmol/L Anion Gap (10-20) BUN (7-17) mg/dL Creatinine (0.7-1.2) MG/DL Est GFR ( Amer) Est GFR (Non-Af Amer) POC Glucose (mg/dL) 107 91 72 (65-110) mg/dL Random Glucose (65-105) mg/dL Calcium (8.6-10.4) mg/dl Phosphorus (2.5-4.5) mg/dL Magnesium (1.6-2.3) mg/dL Total Bilirubin (0.2-1.3) mg/dL AST (14-36) U/L ALT (9-52) U/L Alkaline Phosphatase (38-126) U/L Total Protein (6.3-8.3) g/dL Albumin (3.5-5.0) g/dL Globulin (2.2-3.9) gm/dL Albumin/Globulin Ratio (1.0-2.1) Laboratory Results - last 24 hr 11/26/16 11/27/16 11/27/16 18:45 00:02 05:20 WBC RBC Hgb Hct MCV MCH MCHC RDW Plt Count MPV Neut % (Auto) Lymph % (Auto) [place] % (Auto) Eos % (Auto) Baso % (Auto) Neut # Lymph # [place] # Eos # Baso # Sodium Potassium Chloride Carbon Dioxide Anion Gap BUN Creatinine Est GFR ( Amer) Est GFR (Non-Af Amer) POC Glucose (mg/dL) 72 91 107 Random Glucose Calcium Phosphorus Magnesium Total Bilirubin AST ALT Alkaline Phosphatase Total Protein Albumin Globulin Albumin/Globulin Ratio 11/27/16 11/27/16 11/27/16 06:34 06:37 12:20 WBC 6.9 RBC 4.05 Hgb 11.7 Hct 36.1 MCV 89.2 MCH 28.8 MCHC 32.3 L RDW 15.0 H Plt Count 174 MPV 8.9 Neut % (Auto) 74.6 Lymph % (Auto) 16.5 L [place] % (Auto) 6.6 Eos % (Auto) 2.2 Baso % (Auto) 0.1 Neut # 5.1 Lymph # 1.1 [place] # 0.5 Eos # 0.2 Baso # 0.0 Sodium 138 Potassium 4.5 Chloride 96 L Carbon Dioxide 33 H Anion Gap 14 BUN 17 Creatinine 0.3 L Est GFR ( Amer) > 60 Est GFR (Non-Af Amer) > 60 POC Glucose (mg/dL) 114 H Random Glucose 112 H Calcium 7.7 L Phosphorus 3.1 Magnesium 1.9 Total Bilirubin 1.6 H AST 45 H D ALT 29 Alkaline Phosphatase 50 Total Protein 5.0 L Albumin 2.3 L Globulin 2.7 Albumin/Globulin Ratio 0.9 L Fingerstick Blood Sugar Results: 114
--- NOTE | 2016-11-27 19:13 | CP.PCM.PN ---
Subjective - Date & Time of Evaluation Date of Evaluation: 11/27/16 Time of Evaluation: 19:08 - Subjective Subjective: uncontrolled IDDM & hyperthyroidism Objective - Vital Signs/Intake and Output Vital Signs (last 24 hours): Temp Pulse Resp BP Pulse Ox 98 F 85 14 120/52 L 96 11/27/16 16:00 11/27/16 18:00 11/27/16 18:00 11/27/16 18:00 11/27/16 18:00 Intake and Output: 11/27/16 11/28/16 18:59 06:59 Intake Total 910 Output Total 2004 Balance -1095 - Medications Medications: Current Medications Acetaminophen (Tylenol 650mg/20.3ml Solution Ud) 650 mg GT Q6 PRN PRN Reason: Fever >100.4 F Last Admin: 11/16/16 08:59 Dose: 650 mg Amiodarone HCl (Cordarone) 200 mg PO Q8H [facility] Last Admin: 11/27/16 17:29 Dose: 200 mg Budesonide (Pulmicort Respules) 0.25 mg INH RQ12 [facility] Last Admin: 11/27/16 07:32 Dose: 0.25 mg Diltiazem HCl (Cardizem) 60 mg PO Q6 [facility] Last Admin: 11/27/16 17:29 Dose: 60 mg Enoxaparin Sodium (Lovenox) 110 mg SC Q12 [facility] Last Admin: 11/27/16 09:32 Dose: 110 mg Furosemide (Lasix) 40 mg IVP DAILY [facility] Last Admin: 11/27/16 12:05 Dose: 40 mg Vancomycin/Sodium Chloride (Vancocin) 200 mls @ 166.6 mls/hr IVPB Q12H [facility] Stop: 12/03/16 22:00 Last Admin: 11/27/16 09:54 Dose: 166.6 mls/hr Insulin Glargine (Lantus) 13 unit SC HS [facility] Last Admin: 11/25/16 21:11 Dose: 13 u Insulin Human Regular (Novolin R) 0 unit SC Q6 [facility] PRN Reason: Protocol Last Admin: 11/26/16 06:59 Dose: Not Given Ipratropium [place] (Atrovent) 0.5 mg IH RQ12 [facility] Last Admin: 11/27/16 07:31 Dose: 0.5 mg Methimazole (Tapazole) 10 mg PO TID [facility] Last Admin: 11/27/16 17:30 Dose: 10 mg Metoprolol Succinate (Toprol Xl) 12.5 mg PO DAILY [facility] Last Admin: 11/27/16 09:31 Dose: 12.5 mg Pantoprazole Sodium (Protonix Inj) 40 mg IVP DAILY [facility] Last Admin: 11/27/16 09:31 Dose: 40 mg Propofol (Diprivan) 20 mg IV ONCE PRN PRN Reason: Sedation Stop: 12/02/16 10:34 Last Admin: 11/27/16 12:08 Dose: 20 mg Vitamin A (Vitamin A & D Oint Ud Foilpak) 1 ea TOP BID [facility] Last Admin: 11/27/16 17:30 Dose: 1 ea - Labs Labs: 11/27/16 06:37 11/27/16 06:34 PT 12.0 SECONDS (9.7-12.2) 11/13/16 04:57 INR 1.1 11/13/16 04:57 APTT 38 SECONDS (21-34) H D 11/13/16 04:57 Assessment and Plan (1) Diabetes mellitus, insulin dependent (IDDM), uncontrolled Assessment & Plan: Endocrine consult f/u reason for consult: uncontrolled diabetes source : chrart review , pt awake , alert with OGT tube for bleeding unable to give history & as per chart review poor historian is 61 y/o admitted for a fib with rapid venttirucular resonse & DKA / bilateral lower extremities cellulites ,pt was intubated & also started on insulin drip glucose on admission 1023 . also was started on steroid 40 mg po bid , endocrine was contacted yesterday 11/12 for uncontrolled IDDM glucose in 300- 400 & also pt with hyperthyroidism on tapazole , blood glucose log :today 100-170 , lantus on hold , on NG tube , s/p swallowing evaluation , tolerated some apple puree today yesterday 2 episode of 72 & 75 as per nurse in charge , pt pulled NG tube O hypoglycemia Allergy NKDA Past medical history : HTN , pedal edema Past surgical history : not documented Psychiatry history : (+) psychiatry disorder Social history : (+)smoking , ETOH use , illicit drug use Family history : unknown ROS: Constitutional: no fever ,tiredness/weakness .HEENT: no earache, change in voice .Respiratory: no cough, sob . CVS :no chest pain, no palpitations . Abdomen : no abdominal pain, no nausea /vomiting , no change bowel movement . [employer] : no light-headedness, dizziness. Extremities : (+) edema , no tremors . Skin: no itching, no rash Physical exam Well developed , awake & alert , on nasal canula , on continuos feeding VSS HEENT: norm cephalic, atraumatic , no lid lag , no exophthalmos , mild stare NECK: supple, no palpable lymphadenopathy THYROID: unable to palpable thyroid , not tender CHEST: fair air entry, bilateral, CVS: S1,S2 , ABDOMEN: bowel sound present, benign, obese, no wide purple striae , no bruises EXTREMITIES: bilateral hyper pigmented skin with edema, clubbing or cyanosis, no palpable hand tremors Skin : acanthosis nigricans lab: T4 7.3 11/25 Ft4 2.01, wbc 10.9 11/16 FT4 2.59 , tsh <0.02 , T4 8.88 , wbc 9 , LFT wnl thyroid antibodies (-) tsh < 0.02 ,ft4 2.31 , t4 12.1 , a1c 14 , wbc 10.4 Assessment hypoglycemia , asymtomatic , off NG tube uncontrolled IDDM s/p steroids induced hyperglycemia , last dose yesterday 4/5 hyperthyroidisim with afib , on cardiazem & lopressor bilateral cellutitis a fib bleeding /fever /sepsis obesity Plan - lantus @ 13 units @ hs, on hold continue humalin R low dose coverage q6h on tapazole 10 mg po tid Status: Chronic (2) Hyperthyroidism Status: Chronic (3) Atrial fibrillation with rapid ventricular response Status: Acute (4) Bilateral lower leg cellulitis Status: Acute
--- NOTE | 2016-11-27 23:04 | CP.PCM.PN ---
Subjective - Date & Time of Evaluation Date of Evaluation: 11/27/16 Time of Evaluation: 11:35 - Subjective Subjective: patient seen and examined , able to vocalize some words and was able to eat a couple of spoons of apple puree, but cough with water.NG tube replaced since she removed it yesterday. follows commands, alert and awake, sits in cardiac chair, saturates 97% with out oxygen. she is hungry and wants to eat Objective - Vital Signs/Intake and Output Vital Signs (last 24 hours): Temp Pulse Resp BP Pulse Ox 98 F 98 H 15 161/62 H 96 11/27/16 20:00 11/27/16 22:00 11/27/16 22:00 11/27/16 22:00 11/27/16 22:00 Intake and Output: 11/27/16 11/28/16 18:59 06:59 Intake Total 910 300 Output Total 2004 560 Balance -1095 -260 - Medications Medications: Current Medications Acetaminophen (Tylenol 650mg/20.3ml Solution Ud) 650 mg GT Q6 PRN PRN Reason: Fever >100.4 F Last Admin: 11/16/16 08:59 Dose: 650 mg Amiodarone HCl (Cordarone) 200 mg PO Q8H [facility] Last Admin: 11/27/16 17:29 Dose: 200 mg Budesonide (Pulmicort Respules) 0.25 mg INH RQ12 [facility] Last Admin: 11/27/16 19:32 Dose: 0.25 mg Diltiazem HCl (Cardizem) 60 mg PO Q6 [facility] Last Admin: 11/27/16 17:29 Dose: 60 mg Enoxaparin Sodium (Lovenox) 110 mg SC Q12 [facility] Last Admin: 11/27/16 21:05 Dose: 110 mg Furosemide (Lasix) 40 mg IVP DAILY [facility] Last Admin: 11/27/16 12:05 Dose: 40 mg Vancomycin/Sodium Chloride (Vancocin) 200 mls @ 166.6 mls/hr IVPB Q12H [facility] Stop: 12/03/16 22:00 Last Admin: 11/27/16 21:04 Dose: 166.6 mls/hr Insulin Glargine (Lantus) 13 unit SC HS [facility] Last Admin: 11/25/16 21:11 Dose: 13 u Insulin Human Regular (Novolin R) 0 unit SC Q6 [facility] PRN Reason: Protocol Last Admin: 11/26/16 06:59 Dose: Not Given Ipratropium [place] (Atrovent) 0.5 mg IH RQ12 [facility] Last Admin: 11/27/16 19:32 Dose: 0.5 mg Methimazole (Tapazole) 10 mg PO TID [facility] Last Admin: 11/27/16 17:30 Dose: 10 mg Metoprolol Succinate (Toprol Xl) 12.5 mg PO DAILY [facility] Last Admin: 11/27/16 09:31 Dose: 12.5 mg Pantoprazole Sodium (Protonix Inj) 40 mg IVP DAILY [facility] Last Admin: 11/27/16 09:31 Dose: 40 mg Propofol (Diprivan) 20 mg IV ONCE PRN PRN Reason: Sedation Stop: 12/02/16 10:34 Last Admin: 11/27/16 12:08 Dose: 20 mg Vitamin A (Vitamin A & D Oint Ud Foilpak) 1 ea TOP BID [facility] Last Admin: 11/27/16 17:30 Dose: 1 ea - Labs Labs: 11/27/16 06:37 11/27/16 06:34 PT 12.0 SECONDS (9.7-12.2) 11/13/16 04:57 INR 1.1 11/13/16 04:57 APTT 38 SECONDS (21-34) H D 11/13/16 04:57 - Constitutional Appears: Confused, Chronically Ill - Head Exam Head Exam: ATRAUMATIC, NORMAL INSPECTION, NORMOCEPHALIC - Respiratory Exam Respiratory Exam: Clear to Ausculation Bilateral, NORMAL BREATHING PATTERN - Cardiovascular Exam Cardiovascular Exam: REGULAR RHYTHM, +S1, +S2. absent: Murmur - GI/Abdominal Exam GI & Abdominal Exam: Soft, Normal Bowel Sounds. absent: Tenderness - Rectal Exam Rectal Exam: Deferred Assessment and Plan (1) Diabetes Status: Chronic (2) HTN (hypertension) Status: Chronic (3) Bilateral lower leg cellulitis Status: Deleted (4) Atrial fibrillation with rapid ventricular response Status: Acute (5) CHF (congestive heart failure) Status: Acute (6) Pleural effusion Status: Acute
[2016-11-28 06:11] LABS: BASO % 0.3 % (0.0-2.0); EOS # 0.3 K/uL (0.0-0.7); EOS % 3.6 % (0.0-4.0); HEMATOCRIT 34.6 % (34.0-47.0); LYMPH # 1.2 K/uL (1.0-4.3); LYMPH % 15.5 % (20.0-40.0); MEAN CELL VOLUME 88.9 fL (81.0-99.0); MEAN CORPUSCULAR HEMOGLOBIN 29.5 pg (27.0-31.0); MEAN CORPUSCULAR HGB CONC 33.2 g/dL (33.0-37.0); MEAN PLATELET VOLUME 8.6 fL (7.2-11.7); MONO # 0.5 K/uL (0.0-0.8); MONO % 6.4 % (0.0-10.0); NRBC % 0.1 % (0.0-2.0); WHITE BLOOD COUNT 7.6 K/uL (4.8-10.8)
[2016-11-28 06:28] LABS: CHLORIDE 93 mmol/L (98-107); SODIUM 135 mmol/L (132-148)
[2016-11-28 06:29] LABS: POTASSIUM 3.2 mmol/L (3.6-5.2)
[2016-11-28 06:31] LABS: ALKALINE PHOSPHATASE 70 U/L (38-126); AST/SGOT 22 U/L (14-36); BLOOD UREA NITROGEN 14 mg/dL (7-17); CARBON DIOXIDE 31 mmol/L (22-30); GFR AFRICAN-AMERICAN > 60; GLUCOSE,RANDOM 203 mg/dL (65-105); PHOSPHOROUS 2.5 mg/dL (2.5-4.5); TOTAL PROTEIN 4.7 g/dL (6.3-8.3)
[2016-11-28 06:32] LABS: ALT/SGPT 36 U/L (9-52); CALCIUM 7.8 mg/dl (8.6-10.4); MAGNESIUM 1.9 mg/dL (1.6-2.3)
[2016-11-28] MEDS: Ipratropium 0.02% Inhal Soln (0.5 mg/2.5 ml) UD IH SCH ×2 (07:34→19:37)
[2016-11-28] MEDS: Budesonide 0.25 mg/2 ml Inhal Susp UD INH SCH ×2 (07:34→19:36)
[2016-11-28] MEDS: Potassium Chloride 20 mEq/15 ml LIQ UD PO SCH ×2 (09:28→12:15)
[2016-11-28] MEDS: Metoprolol Succinate 12.5 mg XL PO SCH (09:28)
[2016-11-28] MEDS: Enoxaparin 120 mg Syringe SC SCH ×2 (09:28→21:11)
[2016-11-28] MEDS: Vitamins A & D Oint UD Foilpak TOP SCH ×2 (09:29→17:43)
[2016-11-28] MEDS: Vancomycin 1 gm/NS 200 ml 200 ML IVPB SCH ×2 (09:29→21:11)
--- NOTE | 2016-11-28 11:26 | RAD ---
HISTORY: Pneumonia. Technique: Single view portable semi erect @ 09:05. COMPARISON: Multiple serial examinations preceding the most recent study: 11/26/2016. FINDINGS: LUNGS: Modest interval improvement in multifocal airspace disease. PLEURA: Stable bilateral pleural effusions. CARDIOVASCULAR: Stable cardiomegaly. OSSEOUS STRUCTURES: No significant abnormalities. VISUALIZED UPPER ABDOMEN: Normal. OTHER FINDINGS: Satisfactory position of nasogastric tube. IMPRESSION: Modest interval improvement and bilateral multifocal airspace disease.
--- NOTE | 2016-11-28 12:12 | CP.CCUPN ---
CCU Subjective - Physician Review Subjective (Free Text): Patient was seen and examined at bedside. Patient on BiPAP therapy. Patient is intermittently drowsy but arousable. No acute complaints at this time. She removed the NGT on Monday, NGT was replaced. Continued diabeticsource @ 30cc. Continue holding lantus and ISS. Patient is stable and transfer ordered placed to telemetry. CCU Objective - Vital Signs / Intake & Output Vital Signs (Last 4 hours): Vital Signs BP 11/28/16 09:27 132/57 L Intake and Output (Last 8hrs): Intake & Output 11/27/16 11/28/16 11/28/16 22:59 06:59 14:59 Intake Total 570 600 100 Output Total 1635 995 150 Balance -1065 -395 -50 Weight 233 lb Intake: Intake, IV Amount 100 100 left ej 100 100 Tube Feeding 370 400 100 Other 100 100 Output: Urine 1635 995 150 Urethral ([place]) 1635 995 150 Other: # Bowel Movements 1 1 - Physical Exam Head: Positive for: Atraumatic, Normocephalic Pupils: Positive for: PERRL. Negative for: Sluggish, Non-Reactive Extroacular Muscles: Positive for: EOMI. Negative for: Gaze Palsy Conjunctiva: Positive for: Normal. Negative for: Injected, Icteric Mouth: Positive for: Moist Mucous Membranes Nose (Internal): Positive for: Other (packing in place) Neck: Positive for: Normal Range of Motion, Trachea Midline. Negative for: Meningeal Signs, MIDLINE TENDERNESS, Paraspinal Tenderness, JVD, Lymphadenopathy , Bruit, Other Respiratory/Chest: Positive for: Good Air Exchange. Negative for: Rales Cardiovascular: Positive for: Irregular Rhythm, Peripheal Pulses Present. Negative for: Murmurs, Normal S1, S2 Abdomen: Negative for: Tenderness, Distention Upper Extremity: Positive for: Normal Inspection Lower Extremity: Positive for: Edema Neurological: Negative for: Speech Normal Skin: Positive for: Warm, Dry, Rashes Psychiatric: Positive for: Alert, Normal Affect, Normal Mood - Medications Active Medications: Active Medications Generic Name Dose Route Start Last Admin Trade Name Freq PRN Reason Stop Dose Admin Acetaminophen 650 mg 11/14/16 20:10 11/16/16 08:59 Tylenol 650mg/20.3ml Solution Ud GT 650 mg Q6 PRN Administration Fever >100.4 F Amiodarone HCl 200 mg 11/15/16 18:00 11/28/16 09:29 Cordarone PO 200 mg Q8H [facility] Administration Budesonide 0.25 mg 11/24/16 20:00 11/28/16 07:34 Pulmicort Respules INH 0.25 mg RQ12 [facility] Administration Diltiazem HCl 60 mg 11/15/16 12:00 11/28/16 05:02 Cardizem PO 60 mg Q6 [facility] Administration Enoxaparin Sodium 110 mg 11/25/16 22:00 11/28/16 09:28 Lovenox SC 110 mg Q12 [facility] Administration Furosemide 40 mg 11/27/16 12:30 11/28/16 09:27 Lasix IVP 40 mg DAILY [facility] Administration Vancomycin/Sodium Chloride 200 mls @ 166.6 mls/hr 11/19/16 10:00 11/28/16 09:29 Vancocin IVPB 12/03/16 22:00 166.6 mls/hr Q12H [facility] Administration Insulin Glargine 13 unit 11/23/16 22:00 11/25/16 21:11 Lantus SC 13 u HS [facility] Administration Insulin Human Regular 0 unit 11/17/16 08:38 11/26/16 06:59 Novolin R SC Not Given Q6 [facility] Protocol Ipratropium [place] 0.5 mg 11/25/16 09:30 11/28/16 07:34 Atrovent IH 0.5 mg RQ12 [facility] Administration Methimazole 10 mg 11/18/16 10:00 11/28/16 09:28 Tapazole PO 10 mg TID [facility] Administration Metoprolol Succinate 12.5 mg 11/16/16 10:30 11/28/16 09:28 Toprol Xl PO 12.5 mg DAILY [facility] Administration Pantoprazole Sodium 40 mg 11/26/16 10:00 11/28/16 09:28 Protonix Inj IVP 40 mg DAILY [facility] Administration Propofol 20 mg 11/27/16 10:33 11/27/16 12:08 Diprivan IV 12/02/16 10:34 20 mg ONCE PRN Administration Sedation Vitamin A 1 ea 11/09/16 18:00 11/28/16 09:29 Vitamin A & D Oint Ud Foilpak TOP 1 ea BID [facility] Administration - Patient Studies Lab Studies: Microbiology Studies 11/27/16 16:10 Gram Stain - Final Sputum Sputum Culture - Preliminary Staphylococcus Aureus Lab Studies 11/28/16 11/28/16 11/28/16 Range/Units 12:03 06:32 06:06 WBC 7.6 (4.8-10.8) K/uL RBC 3.89 (3.80-5.20) Mil/uL Hgb 11.5 (11.0-16.0) g/dL Hct 34.6 (34.0-47.0) % MCV 88.9 (81.0-99.0) fL MCH 29.5 (27.0-31.0) pg MCHC 33.2 (33.0-37.0) g/dL RDW 15.0 H (11.5-14.5) % Plt Count 161 (130-400) K/uL MPV 8.6 (7.2-11.7) fL Neut % (Auto) 74.2 (50.0-75.0) % Lymph % (Auto) 15.5 L (20.0-40.0) % [place] % (Auto) 6.4 (0.0-10.0) % Eos % (Auto) 3.6 (0.0-4.0) % Baso % (Auto) 0.3 (0.0-2.0) % Neut # 5.6 (1.8-7.0) K/uL Lymph # 1.2 (1.0-4.3) K/uL [place] # 0.5 (0.0-0.8) K/uL Eos # 0.3 (0.0-0.7) K/uL Baso # 0.0 (0.0-0.2) K/uL Sodium 135 (132-148) mmol/L Potassium 3.2 L (3.6-5.2) mmol/L Chloride 93 L (98-107) mmol/L Carbon Dioxide 31 H (22-30) mmol/L Anion Gap 14 (10-20) BUN 14 (7-17) mg/dL Creatinine 0.4 L (0.7-1.2) MG/DL Est GFR ( Amer) > 60 Est GFR (Non-Af Amer) > 60 POC Glucose (mg/dL) 257 H 220 H (65-110) mg/dL Random Glucose 203 H (65-105) mg/dL Calcium 7.8 L (8.6-10.4) mg/dl Phosphorus 2.5 (2.5-4.5) mg/dL Magnesium 1.9 (1.6-2.3) mg/dL Total Bilirubin 1.0 (0.2-1.3) mg/dL AST 22 (14-36) U/L ALT 36 (9-52) U/L Alkaline Phosphatase 70 (38-126) U/L Total Protein 4.7 L (6.3-8.3) g/dL Albumin 2.3 L (3.5-5.0) g/dL Globulin 2.4 (2.2-3.9) gm/dL Albumin/Globulin Ratio 1.0 (1.0-2.1) 11/27/16 11/27/16 11/27/16 Range/Units 23:46 17:49 12:20 WBC (4.8-10.8) K/uL RBC (3.80-5.20) Mil/uL Hgb (11.0-16.0) g/dL Hct (34.0-47.0) % MCV (81.0-99.0) fL MCH (27.0-31.0) pg MCHC (33.0-37.0) g/dL RDW (11.5-14.5) % Plt Count (130-400) K/uL MPV (7.2-11.7) fL Neut % (Auto) (50.0-75.0) % Lymph % (Auto) (20.0-40.0) % [place] % (Auto) (0.0-10.0) % Eos % (Auto) (0.0-4.0) % Baso % (Auto) (0.0-2.0) % Neut # (1.8-7.0) K/uL Lymph # (1.0-4.3) K/uL [place] # (0.0-0.8) K/uL Eos # (0.0-0.7) K/uL Baso # (0.0-0.2) K/uL Sodium (132-148) mmol/L Potassium (3.6-5.2) mmol/L Chloride (98-107) mmol/L Carbon Dioxide (22-30) mmol/L Anion Gap (10-20) BUN (7-17) mg/dL Creatinine (0.7-1.2) MG/DL Est GFR ( Amer) Est GFR (Non-Af Amer) POC Glucose (mg/dL) 221 H 172 H 114 H (65-110) mg/dL Random Glucose (65-105) mg/dL Calcium (8.6-10.4) mg/dl Phosphorus (2.5-4.5) mg/dL Magnesium (1.6-2.3) mg/dL Total Bilirubin (0.2-1.3) mg/dL AST (14-36) U/L ALT (9-52) U/L Alkaline Phosphatase (38-126) U/L Total Protein (6.3-8.3) g/dL Albumin (3.5-5.0) g/dL Globulin (2.2-3.9) gm/dL Albumin/Globulin Ratio (1.0-2.1) Laboratory Results - last 24 hr 11/27/16 11/27/16 11/27/16 12:20 17:49 23:46 WBC RBC Hgb Hct MCV MCH MCHC RDW Plt Count MPV Neut % (Auto) Lymph % (Auto) [place] % (Auto) Eos % (Auto) Baso % (Auto) Neut # Lymph # [place] # Eos # Baso # Sodium Potassium Chloride Carbon Dioxide Anion Gap BUN Creatinine Est GFR ( Amer) Est GFR (Non-Af Amer) POC Glucose (mg/dL) 114 H 172 H 221 H Random Glucose Calcium Phosphorus Magnesium Total Bilirubin AST ALT Alkaline Phosphatase Total Protein Albumin Globulin Albumin/Globulin Ratio 11/28/16 11/28/16 11/28/16 06:06 06:32 12:03 WBC 7.6 RBC 3.89 Hgb 11.5 Hct 34.6 MCV 88.9 MCH 29.5 MCHC 33.2 RDW 15.0 H Plt Count 161 MPV 8.6 Neut % (Auto) 74.2 Lymph % (Auto) 15.5 L [place] % (Auto) 6.4 Eos % (Auto) 3.6 Baso % (Auto) 0.3 Neut # 5.6 Lymph # 1.2 [place] # 0.5 Eos # 0.3 Baso # 0.0 Sodium 135 Potassium 3.2 L Chloride 93 L Carbon Dioxide 31 H Anion Gap 14 BUN 14 Creatinine 0.4 L Est GFR ( Amer) > 60 Est GFR (Non-Af Amer) > 60 POC Glucose (mg/dL) 220 H 257 H Random Glucose 203 H Calcium 7.8 L Phosphorus 2.5 Magnesium 1.9 Total Bilirubin 1.0 AST 22 ALT 36 Alkaline Phosphatase 70 Total Protein 4.7 L Albumin 2.3 L Globulin 2.4 Albumin/Globulin Ratio 1.0 Fingerstick Blood Sugar Results: 220 Assessment/Plan - Assessment and Plan (Free Text) Assessment: 61 F with history of hyperthyroidism, admitted to ED for hyperglycemia, altered mental status, and a-fib. Patient was admitted to ICU for treatment of DKA and patient continues to be monitored in the ICU. Patient's ventilatory status improved tolerating CPAP trial. Patient is s/p therapeutic bronchoscopy 11/15, , 11/18. Pt tolerated well. Extubated 11/23/16. Plan: Neuro: Drowsy at times, but arousable. Neurochecks Q4 Cardiovascular: 11/09 Echocardiogram: LVEF 65%, elevated diastolic filling pressures. 11/04 EKG: atrial fibrillation with RVR, PVCs @ 153 bpm 11/17 CT Surgery consult - - no surgical intervention needed at time time HTN: Amiodarone HCl 200 mg PO TID, Metoprolol 12.5 mg IVP Q6H [facility] A- Fib: Diltiazem 60 mg PO Q6 [facility], Lovenox 110 mg Q12 Pulmonary: MRSA + bronchial washings Hx PNA continue Vanco Q12 day 06/04, pending repeat sputum cultures Endo: HHS Diabetes - uncontrolled Novolin R 0 unit SC Q6H [facility], Lantus 13 units SC HS - BOTH HELD DUE TO HYPOGLYCEMIC EVENTS Accucheck Q6 ACHS Hyperglycemia- steroids component as well tho patient needs better control History of Hyperthyroidism: T4 2.59, TSH <0.02, Methimazole 10 mg PO BID [facility] GI: Fluid differential Pathologist review - few sheets of reactive mesothelial cells. scattered lymphocytes, macrophages, and RBCs negative for malignant cells. mildly inflamed pleural fluid negative for malignant cells. Vitamin A & D oint UD foilpak 1 ea TOP BID [facility] : Monitor I/Os Maintain Hemphill care Nephro: 250cc Q6H free water flushes BUN/Cr: Improving Monitor I/Os Daily CMP Heme: H&H stable Daily CBC ID: WBC stable MRSA bronchial culture + Acetaminophen 650 mg ID Q6 PRN temperature >[address] F[address] Stop dates [address]. Vancomycin IVPB Q12H. Stop dates in place day 06/04 Prophylaxis: DVT: SCDs, Heparin SC Q12 GI: Protonix 40 mg IVP daily [facility] Hans Rivas DO, PGY-1
[2016-11-28] MEDS: (Novolin R) Insulin Human Regular 100 units/ml vial SC SCH (18:19)
--- NOTE | 2016-11-28 22:24 | CP.PCM.PN ---
Subjective - Date & Time of Evaluation Date of Evaluation: 11/28/16 Time of Evaluation: 09:13 - Subjective Subjective: Pt seen and examined at bedside, she is more alert, afebrile, is weak, Patient on BiPAP therapy. Patient is intermittently drowsy but arousable. No acute complaints at this time. She removed the NGT on Monday, NGT was replaced. Continued diabeticsource @ 30cc. Continue holding lantus and ISS. Patient is stable and transfer ordered placed to telemetry. Objective - Vital Signs/Intake and Output Vital Signs (last 24 hours): Temp Pulse Resp BP Pulse Ox 99.1 F 122 H 22 156/63 H 96 11/28/16 12:00 11/28/16 18:00 11/28/16 18:00 11/28/16 18:00 11/28/16 18:00 Intake and Output: 11/28/16 11/29/16 18:59 06:59 Intake Total 1150 Output Total 2950 Balance -1800 - Medications Medications: Current Medications Acetaminophen (Tylenol 650mg/20.3ml Solution Ud) 650 mg GT Q6 PRN PRN Reason: Fever >100.4 F Last Admin: 11/16/16 08:59 Dose: 650 mg Amiodarone HCl (Cordarone) 200 mg PO Q8H [facility] Last Admin: 11/28/16 17:43 Dose: 200 mg Budesonide (Pulmicort Respules) 0.25 mg INH RQ12 [facility] Last Admin: 11/28/16 19:36 Dose: Not Given Diltiazem HCl (Cardizem) 60 mg PO Q6 [facility] Last Admin: 11/28/16 17:43 Dose: 60 mg Enoxaparin Sodium (Lovenox) 110 mg SC Q12 [facility] Last Admin: 11/28/16 21:11 Dose: 110 mg Furosemide (Lasix) 40 mg IVP DAILY [facility] Last Admin: 11/28/16 09:27 Dose: 40 mg Vancomycin/Sodium Chloride (Vancocin) 200 mls @ 166.6 mls/hr IVPB Q12H [facility] Stop: 12/03/16 22:00 Last Admin: 11/28/16 21:11 Dose: 166.6 mls/hr Insulin Glargine (Lantus) 13 unit SC HS [facility] Last Admin: 11/25/16 21:11 Dose: 13 u Insulin Human Regular (Novolin R) 0 unit SC Q6 [facility] PRN Reason: Protocol Last Admin: 11/28/16 18:19 Dose: 6 unit Ipratropium [place] (Atrovent) 0.5 mg IH RQ12 [facility] Last Admin: 11/28/16 19:37 Dose: 0.5 mg Methimazole (Tapazole) 10 mg PO TID [facility] Last Admin: 11/28/16 17:43 Dose: 10 mg Metoprolol Succinate (Toprol Xl) 12.5 mg PO DAILY [facility] Last Admin: 11/28/16 09:28 Dose: 12.5 mg Pantoprazole Sodium (Protonix Inj) 40 mg IVP DAILY [facility] Last Admin: 11/28/16 09:28 Dose: 40 mg Propofol (Diprivan) 20 mg IV ONCE PRN PRN Reason: Sedation Stop: 12/02/16 10:34 Last Admin: 11/27/16 12:08 Dose: 20 mg Vitamin A (Vitamin A & D Oint Ud Foilpak) 1 ea TOP BID [facility] Last Admin: 11/28/16 17:43 Dose: 1 ea - Labs Labs: 11/28/16 06:06 11/28/16 06:06 PT 12.0 SECONDS (9.7-12.2) 11/13/16 04:57 INR 1.1 11/13/16 04:57 APTT 38 SECONDS (21-34) H D 11/13/16 04:57 - Constitutional Appears: No Acute Distress, Chronically Ill - ENT Exam ENT Exam: Normal Exam - Respiratory Exam Respiratory Exam: Rales, Rhonchi - Cardiovascular Exam Cardiovascular Exam: Irregular Rhythm, +S1, +S2. absent: Murmur - GI/Abdominal Exam GI & Abdominal Exam: Soft, Normal Bowel Sounds. absent: Tenderness Assessment and Plan (1) Diabetes Status: Chronic (2) HTN (hypertension) Status: Chronic (3) Bilateral lower leg cellulitis Status: Deleted (4) Atrial fibrillation with rapid ventricular response Status: Acute (5) CHF (congestive heart failure) Status: Acute (6) Pleural effusion Status: Acute
[2016-11-29] MEDS: (Novolin R) Insulin Human Regular 100 units/ml vial SC SCH ×4 (00:40→17:55)
[2016-11-29 05:40] LABS: CHLORIDE 98 mmol/L (98-107)
[2016-11-29 05:41] LABS: POTASSIUM 3.2 mmol/L (3.6-5.2); SODIUM 140 mmol/L (132-148)
[2016-11-29 05:43] LABS: GFR AFRICAN-AMERICAN > 60
[2016-11-29 05:44] LABS: BLOOD UREA NITROGEN 15 mg/dL (7-17); CALCIUM 7.8 mg/dl (8.6-10.4); CARBON DIOXIDE 37 mmol/L (22-30); GLUCOSE,RANDOM 175 mg/dL (65-105)
[2016-11-29] MEDS: Ipratropium 0.02% Inhal Soln (0.5 mg/2.5 ml) UD IH SCH ×2 (07:28→19:23)
[2016-11-29] MEDS: Budesonide 0.25 mg/2 ml Inhal Susp UD INH SCH ×2 (07:28→19:23)
--- NOTE | 2016-11-29 08:29 | RAD ---
HISTORY: PNEUMONIA COMPARISON: 11/28/2016 FINDINGS: LUNGS: Lines and tubes stable position. Mild venous congestion with bibasilar airspace opacities ; left greater than right with small left pleural effusion. Curvilinear opacity along the medial right lower lung zone may represent a thickened fissure. Attention to this area on followup may be helpful. PLEURA: As above. CARDIOVASCULAR: Normal. OSSEOUS STRUCTURES: No significant abnormalities. VISUALIZED UPPER ABDOMEN: Normal. OTHER FINDINGS: None. IMPRESSION: Lines and tubes stable position. Mild venous congestion with bibasilar airspace opacities ; left greater than right with small left pleural effusion. Curvilinear opacity along the medial right lower lung zone may represent a thickened fissure. Attention to this area on followup may be helpful.
[2016-11-29] MEDS: Vancomycin 1 gm/NS 200 ml 200 ML IVPB SCH ×2 (10:41→21:25)
[2016-11-29] MEDS: Potassium Chloride 20 mEq/15 ml LIQ UD PO SCH ×2 (10:41→12:21)
[2016-11-29] MEDS: Enoxaparin 120 mg Syringe SC SCH ×2 (10:43→21:21)
[2016-11-29] MEDS: Vitamins A & D Oint UD Foilpak TOP SCH ×2 (10:44→17:31)
[2016-11-29] MEDS: Metoprolol Succinate 12.5 mg XL PO SCH (10:59)
--- NOTE | 2016-11-29 16:30 | CP.PCM.CON ---
History of Present Illness - History of Present Illness History of Present Illness: INFECTIOUS DISEASE CONSULTATION. HPI; 61 F with history of hyperthyroidism, admitted to ED on 11/04/16 for hyperglycemia, altered mental status, and ATRIAL FIBRILLATION. Patient was admitted to ICU for treatment of DKA and patient continues to be monitored in the ICU. Patient's ventilatory status improved tolerating CPAP trial. Patient is s/p therapeutic bronchoscopy 11/15, 11/16, 11/18. Pt tolerated well. Patient recently Extubated 11/23/16.PATIENT HAS BEEN ON BROAD-SPECTRUM ANTIBIOTICS INCLUDING IMIPENEM AND RECENTLY ON VANCOMYCIN. BRONCHIAL CULTURE ON 11/15/16 POSITIVE FOR MRSA. REPEAT SPUTUM CULTURES 11/27/16 POSITIVE FOR MRSA. INFECTIOUS DISEASE CONSULTATION REQUESTED BY DR Katrina RIVERA FOR MRSA PNEUMONIA. HISTORY PER CHART. PATIENT UNABLE TO GIVE MUCH DETAILS. PATIENT ALSO HAS BILATERAL LOWER EXTREMITY CELLULITIS WITH BILATERAL SWELLING OF HER LOWER EXTREMITIES. PMH: Anxiety, Arthritis, Bronchitis, Depression, Diabetes, HTN, Hyperthyroidism , Peripheral Edema - [facility] Procedures CENTRAL VENOUS CATHETER PLACEMENT WITH GUIDANCE (04/14/15) Family History: States: Unknown Family Hx - Social History Hx Tobacco Use: Yes Hx Alcohol Use: No Hx Substance Use: No - Immunization History Hx Tetanus Toxoid Vaccination: No Hx Influenza Vaccination: No Hx Pneumococcal Vaccination: No ALLERGIES; NKA. Review of Systems - Review of Systems Systems not reviewed;Unavailable: Other Past Patient History - Tetanus Immunizations Tetanus Immunization: Unknown - Past Medical History & Family History Past Medical History?: Yes - Past Social History Smoking Status: Current Some Days Smoker - CARDIAC Hx Cardiac Disorders: Yes Hx Hypertension: Yes - PULMONARY Hx Bronchitis: Yes - NEUROLOGICAL Hx Neurological Disorder: No - HEENT Hx HEENT Problems: No Other/Comment: WEARS READING GLASSES. - RENAL Hx Chronic Kidney Disease: No - ENDOCRINE/METABOLIC Hx Diabetes Mellitus Type 1: Yes Hx Diabetes Mellitus Type 2: Yes - HEMATOLOGICAL/ONCOLOGICAL Hx Blood Disorders: Yes Hx Blood Transfusions: Yes Hx Blood Transfusion Reaction: No - INTEGUMENTARY Hx Cellulitis: Yes - MUSCULOSKELETAL/RHEUMATOLOGICAL Hx Arthritis: Yes - GASTROINTESTINAL Hx Gastrointestinal Disorders: No - GENITOURINARY/GYNECOLOGICAL Hx Genitourinary Disorders: No - PSYCHIATRIC Hx Anxiety: Yes Hx Depression: Yes Hx Substance Use: No - SURGICAL HISTORY Hx Surgeries: Yes Other/Comment: TUMOR FROM OVARIES REMOVED - ANESTHESIA Hx Anesthesia: Yes Hx Anesthesia Reactions: No Hx Malignant Hyperthermia: No Meds Allergies/Adverse Reactions: Allergies Allergy/AdvReac Type Severity Reaction Status Date / Time No Known Allergies Allergy Verified 11/04/16 11:37 - Medications Medications: Current Medications Acetaminophen (Tylenol 650mg/20.3ml Solution Ud) 650 mg GT Q6 PRN PRN Reason: Fever >100.4 F Last Admin: 11/16/16 08:59 Dose: 650 mg Amiodarone HCl (Cordarone) 200 mg PO Q8H [facility] Last Admin: 11/29/16 10:40 Dose: 200 mg Budesonide (Pulmicort Respules) 0.25 mg INH RQ12 [facility] Last Admin: 11/29/16 07:28 Dose: 0.25 mg Diltiazem HCl (Cardizem) 60 mg PO Q6 [facility] Last Admin: 11/29/16 12:19 Dose: 60 mg Enoxaparin Sodium (Lovenox) 110 mg SC Q12 [facility] Last Admin: 11/29/16 10:43 Dose: 110 mg Furosemide (Lasix) 40 mg IVP DAILY [facility] Last Admin: 11/29/16 09:54 Dose: 40 mg Vancomycin/Sodium Chloride (Vancocin) 200 mls @ 166.6 mls/hr IVPB Q12H [facility] Stop: 12/03/16 22:00 Last Admin: 11/29/16 10:41 Dose: 166.6 mls/hr Insulin Glargine (Lantus) 13 unit SC HS [facility] Last Admin: 11/25/16 21:11 Dose: 13 u Insulin Human Regular (Novolin R) 0 unit SC Q6 [facility] PRN Reason: Protocol Last Admin: 11/29/16 12:19 Dose: 2 unit Ipratropium [place] (Atrovent) 0.5 mg IH RQ12 [facility] Last Admin: 11/29/16 07:28 Dose: 0.5 mg Methimazole (Tapazole) 10 mg PO TID [facility] Last Admin: 11/29/16 13:37 Dose: 10 mg Metoprolol Succinate (Toprol Xl) 12.5 mg PO DAILY [facility] Last Admin: 11/29/16 10:59 Dose: 12.5 mg Pantoprazole Sodium (Protonix Inj) 40 mg IVP DAILY [facility] Last Admin: 11/29/16 09:54 Dose: 40 mg Potassium Chloride (Potassium Chloride Oral Soln) 20 meq PO DAILY [facility] Propofol (Diprivan) 20 mg IV ONCE PRN PRN Reason: Sedation Stop: 12/02/16 10:34 Last Admin: 11/27/16 12:08 Dose: 20 mg Vitamin A (Vitamin A & D Oint Ud Foilpak) 1 ea TOP BID [facility] Last Admin: 11/29/16 10:44 Dose: 1 ea Physical Exam - Constitutional Appears: No Acute Distress - Head Exam Head Exam: NORMAL INSPECTION - Eye Exam Eye Exam: EOMI, PERRL - ENT Exam ENT Exam: Mucous Membranes Dry, Normal Oropharynx - Neck Exam Neck exam: Positive for: Normal Inspection. Negative for: Meningismus - Respiratory Exam Respiratory Exam: Decreased Breath Sounds (.), Rhonchi - Cardiovascular Exam Cardiovascular Exam: Irregular Rhythm, +S1, +S2 - GI/Abdominal Exam GI & Abdominal Exam: Normal Bowel Sounds, Soft. absent: Organomegaly - Extremities Exam Extremities exam: Positive for: pedal edema (BILATERAL LOWER EXTREMITY CELLULITIS WITH CHRONIC'S STASIS DERMATITIS CHANGES LEFT LOWER LEG MORE THAN RIGHT LOWER LEG.). Negative for: calf tenderness - Neurological Exam Neurological exam: Alert, CN II-XII Intact - Psychiatric Exam Psychiatric exam: Flat Affect - Skin Skin Exam: Normal Color, Rash (BILATERAL LOWER EXTREMITY CELLULITIS.), Warm Results - Vital Signs Recent Vital Signs: Last Vital Signs Temp 98.4 F 11/29/16 16:00 Pulse 114 H 11/29/16 16:00 Resp 18 11/29/16 16:00 BP 143/73 11/29/16 16:00 Pulse Ox 96 11/29/16 16:00 - Labs Result Diagrams: 11/28/16 06:06 11/29/16 05:21 Labs: Laboratory Results - last 24 hr 11/28/16 11/28/16 11/29/16 17:48 23:29 04:42 Sodium Potassium Chloride Carbon Dioxide Anion Gap BUN Creatinine Est GFR ( Amer) Est GFR (Non-Af Amer) POC Glucose (mg/dL) 297 H 225 H 200 H Random Glucose Calcium 11/29/16 11/29/16 05:21 11:49 Sodium 140 Potassium 3.2 L Chloride 98 Carbon Dioxide 37 H Anion Gap 8 L BUN 15 Creatinine 0.4 L Est GFR ( Amer) > 60 Est GFR (Non-Af Amer) > 60 POC Glucose (mg/dL) 177 H Random Glucose 175 H Calcium 7.8 L - Imaging and Cardiology Chest x-ray Status: Report reviewed by me (chest x-ray 11/29/16 noted.mild venous congestion.. By basilar air space opacities. Left more than right. Small left pleural effusion..) Assessment & Plan (1) Respiratory failure with hypoxia Status: Acute (2) Pneumonia Assessment and Plan: BRONCHIAL WASHINGS 11/15/16 POSITIVE FOR MRSA REPEAT SPUTUM CULTURES 11/27/16 +VE MRSA CONTINUE iv VANCOMYCIN. fOLLOW-UP vANCO TROUGH LEVEL TO THE OPTIMUM BETWEEN 15 AND 20.. ADD IV TYGACIL 100MG LOADING DOSE F/U BY 50MG IV Q 12HRLY 11/30/16 Status: Acute (3) Lower extremity cellulitis Assessment and Plan: PATIENT HAS BILATERAL CELLULITIS LOWER EXTREMITIES LEFT MORE THAN RIGHT. PATIENT ALSO HAS LYMPHEDEMA WITH SOME OOZING SEROUS DRAINAGE. CONTINUE iv VANCOMYCIN 1 G EVERY 12 HOURLY. Status: Acute (4) Lymphedema of both lower extremities Assessment and Plan: DIURESE IS PER DIRECTOR OF HOME HEALTH SERVICES. Status: Acute (5) Diabetes mellitus, insulin dependent (IDDM), uncontrolled Assessment and Plan: ENDO ON BOARD. Status: Chronic (6) Hyperthyroidism Status: Chronic (7) Atrial fibrillation with rapid ventricular response Status: Acute (8) Obesity (BMI 30-39.9) Status: Acute - Assessment and Plan (Free Text) Assessment: PLAN; CONTINUE iv VANCOMYCIN 1 G EVERY 12 HOURLY. F/U VANOMYCIN LEVELS TROUGH IN AM AND KEEP THEM BETWEEN 15 AND 20 ESR. CRP TEICHOIC ACID AB MRSA SCREEN. PULMONARY TOILET. DIURESIS. WILL FOLLOW NEEDED . LYNNE.
--- NOTE | 2016-11-29 21:35 | CP.PCM.PN ---
Subjective - Date & Time of Evaluation Date of Evaluation: 11/29/16 Time of Evaluation: 09:47 - Subjective Subjective: Pt seen and examined at bedside, she is more alert, improving, afebrile, is weak , Patient on BiPAP therapy. Objective - Vital Signs/Intake and Output Vital Signs (last 24 hours): Temp Pulse Resp BP Pulse Ox 98.4 F 85 18 142/63 96 11/29/16 16:00 11/29/16 20:00 11/29/16 17:30 11/29/16 17:30 11/29/16 17:30 Intake and Output: 11/29/16 11/30/16 18:59 06:59 Intake Total 1250 Output Total 2150 Balance -900 - Medications Medications: Current Medications Acetaminophen (Tylenol 650mg/20.3ml Solution Ud) 650 mg GT Q6 PRN PRN Reason: Fever >100.4 F Last Admin: 11/16/16 08:59 Dose: 650 mg Amiodarone HCl (Cordarone) 200 mg PO Q8H [facility] Last Admin: 11/29/16 17:32 Dose: 200 mg Budesonide (Pulmicort Respules) 0.25 mg INH RQ12 [facility] Last Admin: 11/29/16 19:23 Dose: 0.25 mg Diltiazem HCl (Cardizem) 60 mg PO Q6 [facility] Last Admin: 11/29/16 17:32 Dose: 60 mg Enoxaparin Sodium (Lovenox) 110 mg SC Q12 [facility] Last Admin: 11/29/16 21:21 Dose: 110 mg Furosemide (Lasix) 40 mg IVP DAILY [facility] Last Admin: 11/29/16 09:54 Dose: 40 mg Vancomycin/Sodium Chloride (Vancocin) 200 mls @ 166.6 mls/hr IVPB Q12H [facility] Stop: 12/03/16 22:00 Last Admin: 11/29/16 21:25 Dose: 166.6 mls/hr Insulin Glargine (Lantus) 13 unit SC HS [facility] Last Admin: 11/25/16 21:11 Dose: 13 u Insulin Human Regular (Novolin R) 0 unit SC Q6 [facility] PRN Reason: Protocol Last Admin: 11/29/16 17:55 Dose: 6 unit Ipratropium [place] (Atrovent) 0.5 mg IH RQ12 [facility] Last Admin: 11/29/16 19:23 Dose: 0.5 mg Methimazole (Tapazole) 10 mg PO TID [facility] Last Admin: 11/29/16 17:32 Dose: 10 mg Metoprolol Succinate (Toprol Xl) 12.5 mg PO DAILY [facility] Last Admin: 11/29/16 10:59 Dose: 12.5 mg Pantoprazole Sodium (Protonix Inj) 40 mg IVP DAILY [facility] Last Admin: 11/29/16 09:54 Dose: 40 mg Potassium Chloride (Potassium Chloride Oral Soln) 20 meq PO DAILY [facility] Propofol (Diprivan) 20 mg IV ONCE PRN PRN Reason: Sedation Stop: 12/02/16 10:34 Last Admin: 11/27/16 12:08 Dose: 20 mg Vitamin A (Vitamin A & D Oint Ud Foilpak) 1 ea TOP BID [facility] Last Admin: 11/29/16 17:31 Dose: 1 ea - Labs Labs: 11/28/16 06:06 11/29/16 05:21 PT 12.0 SECONDS (9.7-12.2) 11/13/16 04:57 INR 1.1 11/13/16 04:57 APTT 38 SECONDS (21-34) H D 11/13/16 04:57 - Constitutional Appears: No Acute Distress, Chronically Ill - Head Exam Head Exam: ATRAUMATIC, NORMAL INSPECTION, NORMOCEPHALIC - Eye Exam Eye Exam: EOMI, Normal appearance, PERRL Pupil Exam: NORMAL ACCOMODATION, PERRL - Respiratory Exam Respiratory Exam: Decreased Breath Sounds, Rhonchi - Cardiovascular Exam Cardiovascular Exam: REGULAR RHYTHM, +S1, +S2. absent: Murmur - GI/Abdominal Exam GI & Abdominal Exam: Soft, Normal Bowel Sounds. absent: Tenderness Assessment and Plan (1) Diabetes Status: Chronic (2) HTN (hypertension) Status: Chronic (3) Bilateral lower leg cellulitis Status: Deleted (4) Atrial fibrillation with rapid ventricular response Status: Acute (5) CHF (congestive heart failure) Status: Acute (6) Pleural effusion Status: Acute
--- NOTE | 2016-11-29 22:11 | CP.PCM.PN ---
Subjective - Date & Time of Evaluation Date of Evaluation: 11/29/16 Time of Evaluation: 22:08 - Subjective Subjective: DM & hyperthyroidism Objective - Vital Signs/Intake and Output Vital Signs (last 24 hours): Temp Pulse Resp BP Pulse Ox 98.4 F 85 18 142/63 96 11/29/16 16:00 11/29/16 20:00 11/29/16 17:30 11/29/16 17:30 11/29/16 17:30 Intake and Output: 11/29/16 11/30/16 18:59 06:59 Intake Total 1250 Output Total 2150 Balance -900 - Medications Medications: Current Medications Acetaminophen (Tylenol 650mg/20.3ml Solution Ud) 650 mg GT Q6 PRN PRN Reason: Fever >100.4 F Last Admin: 11/16/16 08:59 Dose: 650 mg Amiodarone HCl (Cordarone) 200 mg PO Q8H [facility] Last Admin: 11/29/16 17:32 Dose: 200 mg Budesonide (Pulmicort Respules) 0.25 mg INH RQ12 [facility] Last Admin: 11/29/16 19:23 Dose: 0.25 mg Diltiazem HCl (Cardizem) 60 mg PO Q6 [facility] Last Admin: 11/29/16 17:32 Dose: 60 mg Enoxaparin Sodium (Lovenox) 110 mg SC Q12 [facility] Last Admin: 11/29/16 21:21 Dose: 110 mg Furosemide (Lasix) 40 mg IVP DAILY [facility] Last Admin: 11/29/16 09:54 Dose: 40 mg Vancomycin/Sodium Chloride (Vancocin) 200 mls @ 166.6 mls/hr IVPB Q12H [facility] Stop: 12/03/16 22:00 Last Admin: 11/29/16 21:25 Dose: 166.6 mls/hr Insulin Glargine (Lantus) 13 unit SC HS [facility] Last Admin: 11/25/16 21:11 Dose: 13 u Insulin Human Regular (Novolin R) 0 unit SC Q6 [facility] PRN Reason: Protocol Last Admin: 11/29/16 17:55 Dose: 6 unit Ipratropium [place] (Atrovent) 0.5 mg IH RQ12 [facility] Last Admin: 11/29/16 19:23 Dose: 0.5 mg Methimazole (Tapazole) 10 mg PO TID [facility] Last Admin: 11/29/16 17:32 Dose: 10 mg Metoprolol Succinate (Toprol Xl) 12.5 mg PO DAILY [facility] Last Admin: 11/29/16 10:59 Dose: 12.5 mg Pantoprazole Sodium (Protonix Inj) 40 mg IVP DAILY [facility] Last Admin: 11/29/16 09:54 Dose: 40 mg Potassium Chloride (Potassium Chloride Oral Soln) 20 meq PO DAILY [facility] Propofol (Diprivan) 20 mg IV ONCE PRN PRN Reason: Sedation Stop: 12/02/16 10:34 Last Admin: 11/27/16 12:08 Dose: 20 mg Vitamin A (Vitamin A & D Oint Ud Foilpak) 1 ea TOP BID [facility] Last Admin: 11/29/16 17:31 Dose: 1 ea - Labs Labs: 11/28/16 06:06 11/29/16 05:21 PT 12.0 SECONDS (9.7-12.2) 11/13/16 04:57 INR 1.1 11/13/16 04:57 APTT 38 SECONDS (21-34) H D 11/13/16 04:57 Assessment and Plan (1) Diabetes mellitus, insulin dependent (IDDM), uncontrolled Assessment & Plan: Endocrine consult f/u reason for consult: uncontrolled diabetes source : chrart review , pt awake , alert with OGT tube for bleeding unable to give history & as per chart review poor historian is 61 y/o admitted for a fib with rapid venttirucular resonse & DKA / bilateral lower extremities cellulites ,pt was intubated & also started on insulin drip glucose on admission 1023 . also was started on steroid 40 mg po bid , endocrine was contacted yesterday 11/12 for uncontrolled IDDM glucose in 300- 400 & also pt with hyperthyroidism on tapazole , blood glucose log :today 170-200 NO hypoglycemia Allergy NKDA Past medical history : HTN , pedal edema Past surgical history : not documented Psychiatry history : (+) psychiatry disorder Social history : (+)smoking , ETOH use , illicit drug use Family history : unknown ROS: Constitutional: no fever ,tiredness/weakness .HEENT: no earache, change in voice .Respiratory: no cough, sob . CVS :no chest pain, no palpitations . Abdomen : no abdominal pain, no nausea /vomiting , no change bowel movement . 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 Extremities : (+) edema , no tremors . Skin: no itching, no rash Physical exam Well developed , awake & alert , on bipap , on continuos feeding VSS HEENT: norm cephalic, atraumatic , no lid lag , no exophthalmos , mild stare NECK: supple, no palpable lymphadenopathy THYROID: unable to palpable thyroid , not tender CHEST: fair air entry, bilateral, CVS: S1,S2 , ABDOMEN: bowel sound present, benign, obese, no wide purple striae , no bruises EXTREMITIES: bilateral hyper pigmented skin with edema, clubbing or cyanosis, no palpable hand tremors Skin : acanthosis nigricans lab: T4 7.3 11/25 Ft4 2.01, wbc 10.9 11/16 FT4 2.59 , tsh <0.02 , T4 8.88 , wbc 9 , LFT wnl thyroid antibodies (-) tsh < 0.02 ,ft4 2.31 , t4 12.1 , a1c 14 , wbc 10.4 Assessment hypoglycemia , asymtomatic , off NG tube uncontrolled IDDM s/p steroids induced hyperglycemia , last dose yesterday 11/23 hyperthyroidisim with afib , on cardiazem & lopressor bilateral cellutitis a fib bleeding /fever /sepsis obesity Plan - lantus @ 13 units @ hs, on hold continue humalin R low dose coverage q6h on tapazole 10 mg po tid will monitor Status: Chronic (2) Hyperthyroidism Status: Chronic (3) Atrial fibrillation with rapid ventricular response Status: Acute (4) Bilateral lower leg cellulitis Status: Acute
[2016-11-30] MEDS: (Novolin R) Insulin Human Regular 100 units/ml vial SC SCH ×4 (02:59→17:55)
[2016-11-30 06:34] LABS: CHLORIDE 99 mmol/L (98-107); SODIUM 139 mmol/L (132-148)
[2016-11-30 06:36] LABS: GFR AFRICAN-AMERICAN > 60
[2016-11-30 06:37] LABS: ALB/GLOB RATIO 0.9 (1.0-2.1); ALKALINE PHOSPHATASE 66 U/L (38-126); ALT/SGPT 40 U/L (9-52); AST/SGOT 31 U/L (14-36); BILIRUBIN,DIRECT 0.6 mg/dL (0.0-0.4); BILIRUBIN,TOTAL 1.2 mg/dL (0.2-1.3); BLOOD UREA NITROGEN 16 mg/dL (7-17); CALCIUM 8.3 mg/dl (8.6-10.4); CARBON DIOXIDE 33 mmol/L (22-30); GLUCOSE,RANDOM 165 mg/dL (65-105); TOTAL PROTEIN 5.1 g/dL (6.3-8.3)
[2016-11-30] MEDS: Ipratropium 0.02% Inhal Soln (0.5 mg/2.5 ml) UD IH SCH ×2 (07:21→19:17)
[2016-11-30] MEDS: Budesonide 0.25 mg/2 ml Inhal Susp UD INH SCH ×2 (07:21→19:17)
[2016-11-30] MEDS: Vitamins A & D Oint UD Foilpak TOP SCH ×2 (09:34→17:50)
[2016-11-30] MEDS: Enoxaparin 150 mg Syringe SC SCH ×2 (09:50→21:00)
[2016-11-30] MEDS: Potassium Chloride 20 mEq/15 ml LIQ UD PO SCH (10:03)
[2016-11-30] MEDS: Metoprolol Succinate 12.5 mg XL PO SCH (10:04)
[2016-11-30] MEDS: Vancomycin 1 gm/NS 200 ml 200 ML IVPB SCH ×2 (11:18→21:01)
--- NOTE | 2016-11-30 18:04 | RAD ---
HISTORY: PNEUMONIA COMPARISON: 11/29/2016 FINDINGS: LUNGS: Mild venous congestion. Bilateral hilar prominence. Elevated right hemidiaphragm. Patchy left basilar airspace opacity. Small left pleural effusion. PLEURA: As above. CARDIOVASCULAR: Cardiomegaly. OSSEOUS STRUCTURES: Degenerative changes in the spine and shoulders. VISUALIZED UPPER ABDOMEN: Normal. OTHER FINDINGS: None. IMPRESSION: Mild venous congestion. Bilateral hilar prominence. Elevated right hemidiaphragm. Patchy left basilar airspace opacity. Small left pleural effusion.
--- NOTE | 2016-11-30 22:55 | CP.PCM.PN ---
Subjective - Date & Time of Evaluation Date of Evaluation: 11/30/16 Time of Evaluation: 09:21 - Subjective Subjective: Pt seen and examined in ICU, pulled her NG tube out, get GI eval for Peg Objective - Vital Signs/Intake and Output Vital Signs (last 24 hours): Temp Pulse Resp BP Pulse Ox 99 F 111 H 19 127/65 98 11/30/16 20:00 11/30/16 20:00 11/30/16 20:00 11/30/16 16:00 11/30/16 20:00 Intake and Output: 11/30/16 12/01/16 18:59 06:59 Intake Total 301 Output Total 2600 Balance -2299 - Medications Medications: Current Medications Acetaminophen (Tylenol 650mg/20.3ml Solution Ud) 650 mg GT Q6 PRN PRN Reason: Fever >100.4 F Last Admin: 11/16/16 08:59 Dose: 650 mg Budesonide (Pulmicort Respules) 0.25 mg INH RQ12 [facility] Last Admin: 11/30/16 19:17 Dose: 0.25 mg Diltiazem HCl (Cardizem) 60 mg PO Q6 [facility] Last Admin: 11/30/16 17:53 Dose: Not Given Enoxaparin Sodium (Lovenox) 110 mg SC Q12 [facility] Last Admin: 11/30/16 21:00 Dose: 110 mg Furosemide (Lasix) 40 mg IVP DAILY [facility] Last Admin: 11/30/16 10:36 Dose: 40 mg Vancomycin/Sodium Chloride (Vancocin) 200 mls @ 166.6 mls/hr IVPB Q12H [facility] Stop: 12/03/16 22:00 Last Admin: 11/30/16 21:01 Dose: 166.6 mls/hr Tigecycline 50 mg/ Sodium (Chloride) 100 mls @ 100 mls/hr IV Q12H [facility] Last Admin: 11/30/16 09:52 Dose: 100 mls/hr Diltiazem HCl 125 mg/ Dextrose 125 mls @ 5 mls/hr IV .Q24H [facility]; 5 MG/HR PRN Reason: Protocol Last Admin: 11/30/16 12:54 Dose: 5 mls/hr Insulin Glargine (Lantus) 13 unit SC HS [facility] Last Admin: 11/25/16 21:11 Dose: 13 u Insulin Human Regular (Novolin R) 0 unit SC Q6 [facility] PRN Reason: Protocol Last Admin: 11/30/16 17:55 Dose: Not Given Ipratropium [place] (Atrovent) 0.5 mg IH RQ12 [facility] Last Admin: 11/30/16 19:17 Dose: 0.5 mg Methimazole (Tapazole) 10 mg PO TID [facility] Last Admin: 11/30/16 17:52 Dose: Not Given Metoprolol Succinate (Toprol Xl) 12.5 mg PO DAILY [facility] Last Admin: 11/30/16 10:04 Dose: Not Given Pantoprazole Sodium (Protonix Inj) 40 mg IVP DAILY [facility] Last Admin: 11/30/16 10:36 Dose: 40 mg Potassium Chloride (Potassium Chloride Oral Soln) 20 meq PO DAILY [facility] Last Admin: 11/30/16 10:03 Dose: Not Given Propofol (Diprivan) 20 mg IV ONCE PRN PRN Reason: Sedation Stop: 12/02/16 10:34 Last Admin: 11/27/16 12:08 Dose: 20 mg Vitamin A (Vitamin A & D Oint Ud Foilpak) 1 ea TOP BID [facility] Last Admin: 11/30/16 17:50 Dose: 1 ea - Labs Labs: 11/28/16 06:06 11/30/16 06:06 PT 12.0 SECONDS (9.7-12.2) 11/13/16 04:57 INR 1.1 11/13/16 04:57 APTT 38 SECONDS (21-34) H D 11/13/16 04:57 - Constitutional Appears: No Acute Distress, Chronically Ill - Head Exam Head Exam: ATRAUMATIC, NORMAL INSPECTION, NORMOCEPHALIC - Eye Exam Eye Exam: EOMI, Normal appearance, PERRL Pupil Exam: NORMAL ACCOMODATION, PERRL - Respiratory Exam Respiratory Exam: Decreased Breath Sounds, Rales, Rhonchi - Cardiovascular Exam Cardiovascular Exam: REGULAR RHYTHM, +S1, +S2. absent: Murmur - GI/Abdominal Exam GI & Abdominal Exam: Soft, Normal Bowel Sounds. absent: Tenderness Assessment and Plan (1) Diabetes Status: Chronic (2) HTN (hypertension) Status: Chronic (3) Bilateral lower leg cellulitis Status: Deleted (4) Atrial fibrillation with rapid ventricular response Status: Acute (5) CHF (congestive heart failure) Status: Acute (6) Pleural effusion Status: Acute
--- NOTE | 2016-11-30 23:08 | CP.PCM.PN ---
Subjective - Date & Time of Evaluation Date of Evaluation: 11/30/16 Time of Evaluation: 23:08 - Subjective Subjective: CHIEF COMPLAINTS TODAY : spiked temperature 100.2 Blood pressure 153/71, tachycardic heart rate 110/m On nasal cannula oxygen 4 L Oxygen saturation 97%. WEAK ROS. HEENT : N. Resp : No SOB wheezing, cough Cardio : No CP, PND orthopnea GI : No abd. Pain, n/v I O PSYCHOLOGIST : No headache , focal deficit. Musculoskel : N Ext. : Pedal pulses intact, no edema or calf pain Derm : N Psych : N. PE. Pt. is alert awake in no distress. V.S As noted in the chart Head ,ear nose,throat and eyes : Normal. Neck : Supple with normal carotids. Lungs: bilateral rhonchi Heart : S1 & S2 normal irregular. . No murmur. S4 + Abd : Soft non tender with normal bowel sounds. Neuro : Moves all ext. with no localized deficit. Ext : BILATERAL LOWER EXTREMITY CELLULITIS WITH EDEMA. Neg. calf tenderness Derm : No rashes or decubitus ulcer. Radiology/Labs . ESR40 VANCO TROUGH 13.2 OKAY VANCO RANDOM 16.64 cREATININE 0.4/bun 16 lftS NORMAL chest x-ray 11/30 bilateral hilar prominence. Left basilar opacity with small left pleural effusion. Elevated right hemidiaphragm.. Objective - Vital Signs/Intake and Output Vital Signs (last 24 hours): Temp Pulse Resp BP Pulse Ox 99 F 112 H 19 130/62 96 11/30/16 20:00 11/30/16 23:00 11/30/16 23:00 11/30/16 23:00 11/30/16 23:00 Intake and Output: 11/30/16 12/01/16 18:59 06:59 Intake Total 301 Output Total 2600 Balance -2299 - Medications Medications: Current Medications Acetaminophen (Tylenol 650mg/20.3ml Solution Ud) 650 mg GT Q6 PRN PRN Reason: Fever >100.4 F Last Admin: 11/16/16 08:59 Dose: 650 mg Budesonide (Pulmicort Respules) 0.25 mg INH RQ12 [facility] Last Admin: 11/30/16 19:17 Dose: 0.25 mg Diltiazem HCl (Cardizem) 60 mg PO Q6 [facility] Last Admin: 11/30/16 17:53 Dose: Not Given Enoxaparin Sodium (Lovenox) 110 mg SC Q12 [facility] Last Admin: 11/30/16 21:00 Dose: 110 mg Furosemide (Lasix) 40 mg IVP DAILY [facility] Last Admin: 11/30/16 10:36 Dose: 40 mg Vancomycin/Sodium Chloride (Vancocin) 200 mls @ 166.6 mls/hr IVPB Q12H [facility] Stop: 12/03/16 22:00 Last Admin: 11/30/16 21:01 Dose: 166.6 mls/hr Tigecycline 50 mg/ Sodium (Chloride) 100 mls @ 100 mls/hr IV Q12H [facility] Last Admin: 11/30/16 22:51 Dose: 100 mls/hr Diltiazem HCl 125 mg/ Dextrose 125 mls @ 5 mls/hr IV .Q24H [facility]; 5 MG/HR PRN Reason: Protocol Last Admin: 11/30/16 12:54 Dose: 5 mls/hr Insulin Glargine (Lantus) 13 unit SC HS [facility] Last Admin: 11/25/16 21:11 Dose: 13 u Insulin Human Regular (Novolin R) 0 unit SC Q6 [facility] PRN Reason: Protocol Last Admin: 11/30/16 17:55 Dose: Not Given Ipratropium [place] (Atrovent) 0.5 mg IH RQ12 [facility] Last Admin: 11/30/16 19:17 Dose: 0.5 mg Methimazole (Tapazole) 10 mg PO TID [facility] Last Admin: 11/30/16 17:52 Dose: Not Given Metoprolol Succinate (Toprol Xl) 12.5 mg PO DAILY [facility] Last Admin: 11/30/16 10:04 Dose: Not Given Pantoprazole Sodium (Protonix Inj) 40 mg IVP DAILY [facility] Last Admin: 11/30/16 10:36 Dose: 40 mg Potassium Chloride (Potassium Chloride Oral Soln) 20 meq PO DAILY [facility] Last Admin: 11/30/16 10:03 Dose: Not Given Propofol (Diprivan) 20 mg IV ONCE PRN PRN Reason: Sedation Stop: 12/02/16 10:34 Last Admin: 11/27/16 12:08 Dose: 20 mg Vitamin A (Vitamin A & D Oint Ud Foilpak) 1 ea TOP BID [facility] Last Admin: 11/30/16 17:50 Dose: 1 ea - Labs Labs: 11/28/16 06:06 11/30/16 06:06 PT 12.0 SECONDS (9.7-12.2) 11/13/16 04:57 INR 1.1 11/13/16 04:57 APTT 38 SECONDS (21-34) H D 11/13/16 04:57 Assessment and Plan (1) Respiratory failure with hypoxia Status: Acute (2) Pneumonia Assessment & Plan: CONTINUE iv VANCOMYCIN 1 G EVERY 12 HOURLY. ON IV TYGACIL 100MG LOADING DOSE F/U BY 50MG IV Q 12HRLY 11/30/16 repeat blood cultures ordered 2 sets today 15 minutes apart. 11/30/16 as patient still running low-grade temperatures. Status: Acute (3) Lower extremity cellulitis Assessment & Plan: PATIENT HAS BILATERAL CELLULITIS LOWER EXTREMITIES LEFT MORE THAN RIGHT. PATIENT ALSO HAS LYMPHEDEMA WITH SOME OOZING SEROUS DRAINAGE. CONTINUE iv VANCOMYCIN 1 G EVERY 12 HOURLY. continue IV Tygacil 50 mg every 12 hourly for MRSA and gram-negative coverage. Status: Acute (4) Lymphedema of both lower extremities Status: Acute (5) Diabetes mellitus, insulin dependent (IDDM), uncontrolled Status: Chronic (6) Hyperthyroidism Status: Chronic (7) Atrial fibrillation with rapid ventricular response Status: Acute (8) Obesity (BMI 30-39.9) Status: Acute
[2016-12-01] MEDS: (Novolin R) Insulin Human Regular 100 units/ml vial SC SCH ×4 (05:40→18:03)
[2016-12-01 06:51] LABS: BASO % 0.7 % (0.0-2.0); EOS # 0.1 K/uL (0.0-0.7); EOS % 1.5 % (0.0-4.0); HEMATOCRIT 35.5 % (34.0-47.0); LYMPH # 1.3 K/uL (1.0-4.3); LYMPH % 18.5 % (20.0-40.0); MEAN CELL VOLUME 89.4 fL (81.0-99.0); MEAN CORPUSCULAR HEMOGLOBIN 29.2 pg (27.0-31.0); MEAN CORPUSCULAR HGB CONC 32.6 g/dL (33.0-37.0); MEAN PLATELET VOLUME 8.7 fL (7.2-11.7); MONO # 0.6 K/uL (0.0-0.8); MONO % 8.8 % (0.0-10.0); WHITE BLOOD COUNT 6.8 K/uL (4.8-10.8)
[2016-12-01 06:55] LABS: CHLORIDE 97 mmol/L (98-107)
[2016-12-01 06:56] LABS: POTASSIUM 3.2 mmol/L (3.6-5.2); SODIUM 139 mmol/L (132-148)
[2016-12-01 06:58] LABS: ALB/GLOB RATIO 0.9 (1.0-2.1); ALKALINE PHOSPHATASE 65 U/L (38-126); AST/SGOT 21 U/L (14-36); BILIRUBIN,TOTAL 1.3 mg/dL (0.2-1.3); CARBON DIOXIDE 35 mmol/L (22-30); GFR AFRICAN-AMERICAN > 60; TOTAL PROTEIN 4.9 g/dL (6.3-8.3)
[2016-12-01 06:59] LABS: ALT/SGPT 37 U/L (9-52); BLOOD UREA NITROGEN 23 mg/dL (7-17); CALCIUM 8.3 mg/dl (8.6-10.4); GLUCOSE,RANDOM 139 mg/dL (65-105); MAGNESIUM 1.8 mg/dL (1.6-2.3); PHOSPHOROUS 3.5 mg/dL (2.5-4.5)
--- NOTE | 2016-12-01 07:16 | CP.PCM.CON ---
<Nain Cadena - Last Filed: 12/01/16 13:11> History of Present Illness - History of Present Illness History of Present Illness: PGY4 GI Fellow Consult Note Patient is a 61yo female with PMHx significant for HTN, hyperthyroidism, DM ( A1c 14.3), depression/anxiety who presented to the hospital with altered mentation and shortness of breath. On admission she was found to have B/L pulmonary infiltrates, hyperglycemia (subsequently diagnosed as DKA), as well as atrial fibrillation with RVR and LE cellulitis. She was admitted to the ICU for ongoing care. Since her admission, she has been unable to provide appropriate medical history due to her altered mentation. Her atrial fibrillation and hyperglycemia were stabilized and she was started on IV antibiotics for her cellultiis. Unfortunately, on day 4 of this admission she became dyspneic with poor ability to clear pulmonary secretions and was intubated due to acute respiratory failure. She had a thoracentesis following intubation and remained intubated for two weeks. During her time intubated, an NGT was placed for tube feeding which was complicated by epistaxis requiring removal of NGT and nasal packing for hemostasis. An OGT was then placed for tube feeding. Ten days following this episode an NGT was placed once more and removed following extubation. During the post-extubation period, pt was was noted to be suffering with dysphagia which has been confirmed by BAIT PACKER. Our service has been consulted for PEG tube placement. Of note, the patient's Goddaughter, whose name/number is noted in the chart, stated that patient was to be DNR/DNI however as she did not have any documentation of being the patient's POA/surrogate decision maker and is not an immediate relative, she has been unable to make medical decisions. PMHx: See HPI PSHx: Unknown FHx: Unknown Social: Unknown Endo: None per EMR Review of Systems - Review of Systems Systems not reviewed;Unavailable: Altered Mental Status Past Patient History - Tetanus Immunizations Tetanus Immunization: Unknown - Past Medical History & Family History Past Medical History?: Yes - Past Social History Smoking Status: Current Some Days Smoker - CARDIAC Hx Cardiac Disorders: Yes Hx Hypertension: Yes - PULMONARY Hx Bronchitis: Yes - NEUROLOGICAL Hx Neurological Disorder: No - HEENT Hx HEENT Problems: No Other/Comment: WEARS READING GLASSES. - RENAL Hx Chronic Kidney Disease: No - ENDOCRINE/METABOLIC Hx Diabetes Mellitus Type 1: Yes Hx Diabetes Mellitus Type 2: Yes - HEMATOLOGICAL/ONCOLOGICAL Hx Blood Disorders: Yes Hx Blood Transfusions: Yes Hx Blood Transfusion Reaction: No - INTEGUMENTARY Hx Cellulitis: Yes - MUSCULOSKELETAL/RHEUMATOLOGICAL Hx Arthritis: Yes - GASTROINTESTINAL Hx Gastrointestinal Disorders: No - GENITOURINARY/GYNECOLOGICAL Hx Genitourinary Disorders: No - PSYCHIATRIC Hx Anxiety: Yes Hx Depression: Yes Hx Substance Use: No - SURGICAL HISTORY Hx Surgeries: Yes Other/Comment: TUMOR FROM OVARIES REMOVED - ANESTHESIA Hx Anesthesia: Yes Hx Anesthesia Reactions: No Hx Malignant Hyperthermia: No Meds Allergies/Adverse Reactions: Allergies Allergy/AdvReac Type Severity Reaction Status Date / Time No Known Allergies Allergy Verified 11/04/16 11:37 - Medications Medications: Current Medications Acetaminophen (Tylenol 650mg/20.3ml Solution Ud) 650 mg GT Q6 PRN PRN Reason: Fever >100.4 F Last Admin: 11/16/16 08:59 Dose: 650 mg Budesonide (Pulmicort Respules) 0.25 mg INH RQ12 [facility] Last Admin: 11/30/16 19:17 Dose: 0.25 mg Diltiazem HCl (Cardizem) 60 mg PO Q6 [facility] Last Admin: 12/01/16 05:39 Dose: Not Given Enoxaparin Sodium (Lovenox) 110 mg SC Q12 [facility] Last Admin: 11/30/16 21:00 Dose: 110 mg Furosemide (Lasix) 40 mg IVP DAILY [facility] Last Admin: 11/30/16 10:36 Dose: 40 mg Vancomycin/Sodium Chloride (Vancocin) 200 mls @ 166.6 mls/hr IVPB Q12H [facility] Stop: 12/03/16 22:00 Last Admin: 11/30/16 21:01 Dose: 166.6 mls/hr Tigecycline 50 mg/ Sodium (Chloride) 100 mls @ 100 mls/hr IV Q12H [facility] Last Admin: 11/30/16 22:51 Dose: 100 mls/hr Diltiazem HCl 125 mg/ Dextrose 125 mls @ 5 mls/hr IV .Q24H [facility]; 5 MG/HR PRN Reason: Protocol Last Admin: 11/30/16 12:54 Dose: 5 mls/hr Insulin Glargine (Lantus) 13 unit SC HS [facility] Last Admin: 11/25/16 21:11 Dose: 13 u Insulin Human Regular (Novolin R) 0 unit SC Q6 [facility] PRN Reason: Protocol Last Admin: 12/01/16 05:40 Dose: Not Given Ipratropium [place] (Atrovent) 0.5 mg IH RQ12 [facility] Last Admin: 11/30/16 19:17 Dose: 0.5 mg Methimazole (Tapazole) 10 mg PO TID [facility] Last Admin: 11/30/16 17:52 Dose: Not Given Metoprolol Succinate (Toprol Xl) 12.5 mg PO DAILY [facility] Last Admin: 11/30/16 10:04 Dose: Not Given Pantoprazole Sodium (Protonix Inj) 40 mg IVP DAILY [facility] Last Admin: 11/30/16 10:36 Dose: 40 mg Potassium Chloride (Potassium Chloride Oral Soln) 20 meq PO DAILY [facility] Last Admin: 11/30/16 10:03 Dose: Not Given Propofol (Diprivan) 20 mg IV ONCE PRN PRN Reason: Sedation Stop: 12/02/16 10:34 Last Admin: 11/27/16 12:08 Dose: 20 mg Vitamin A (Vitamin A & D Oint Ud Foilpak) 1 ea TOP BID [facility] Last Admin: 11/30/16 17:50 Dose: 1 ea Physical Exam - Constitutional Appears: Non-toxic, No Acute Distress - Eye Exam Eye Exam: EOMI, PERRL - ENT Exam ENT Exam: Mucous Membranes Dry - Respiratory Exam Respiratory Exam: Rales. absent: Clear to Auscultation Bilateral, Rhonchi, Wheezes - Cardiovascular Exam Cardiovascular Exam: Tachycardia, Irregular Rhythm, +S1, +S2 - GI/Abdominal Exam GI & Abdominal Exam: Normal Bowel Sounds, Soft. absent: Distended, Firm, Guarding, Organomegaly, Rigid, Tenderness - Extremities Exam Extremities exam: Positive for: pedal edema Additional comments: erythema and drainage noted on LE (R>L) - Neurological Exam Neurological exam: Altered - Psychiatric Exam Psychiatric exam: Flat Affect - Skin Skin Exam: Dry, Warm Results - Vital Signs Recent Vital Signs: Last Vital Signs Temp 98.6 F 12/01/16 04:00 Pulse 106 H 12/01/16 06:00 Resp 18 12/01/16 06:00 BP 170/85 H 12/01/16 06:00 Pulse Ox 96 12/01/16 06:00 - Labs Result Diagrams: 12/01/16 06:41 12/01/16 06:41 Labs: Laboratory Results - last 24 hr 11/30/16 11/30/16 11/30/16 06:06 09:50 11:39 WBC RBC Hgb Hct MCV MCH MCHC RDW Plt Count MPV Neut % (Auto) Lymph % (Auto) [place] % (Auto) Eos % (Auto) Baso % (Auto) Neut # Lymph # [place] # Eos # Baso # ESR 40 H Sodium Potassium Chloride Carbon Dioxide Anion Gap BUN Creatinine Est GFR ( Amer) Est GFR (Non-Af Amer) POC Glucose (mg/dL) 187 H Random Glucose Calcium Phosphorus Magnesium Total Bilirubin AST ALT Alkaline Phosphatase Total Protein Albumin Globulin Albumin/Globulin Ratio Vancomycin Trough 13.2 H 11/30/16 11/30/16 12/01/16 17:55 23:42 05:35 WBC RBC Hgb Hct MCV MCH MCHC RDW Plt Count MPV Neut % (Auto) Lymph % (Auto) [place] % (Auto) Eos % (Auto) Baso % (Auto) Neut # Lymph # [place] # Eos # Baso # ESR Sodium Potassium Chloride Carbon Dioxide Anion Gap BUN Creatinine Est GFR ( Amer) Est GFR (Non-Af Amer) POC Glucose (mg/dL) 130 H 167 H 147 H Random Glucose Calcium Phosphorus Magnesium Total Bilirubin AST ALT Alkaline Phosphatase Total Protein Albumin Globulin Albumin/Globulin Ratio Vancomycin Trough 12/01/16 06:41 WBC 6.8 RBC 3.97 Hgb 11.6 Hct 35.5 MCV 89.4 MCH 29.2 MCHC 32.6 L RDW 16.0 H Plt Count 170 MPV 8.7 Neut % (Auto) 70.5 Lymph % (Auto) 18.5 L [place] % (Auto) 8.8 Eos % (Auto) 1.5 Baso % (Auto) 0.7 Neut # 4.8 Lymph # 1.3 [place] # 0.6 Eos # 0.1 Baso # 0.0 ESR Sodium 139 Potassium 3.2 L Chloride 97 L Carbon Dioxide 35 H Anion Gap 10 BUN 23 H Creatinine 0.5 L Est GFR ( Amer) > 60 Est GFR (Non-Af Amer) > 60 POC Glucose (mg/dL) Random Glucose 139 H Calcium 8.3 L Phosphorus 3.5 Magnesium 1.8 Total Bilirubin 1.3 AST 21 ALT 37 Alkaline Phosphatase 65 Total Protein 4.9 L Albumin 2.3 L Globulin 2.6 Albumin/Globulin Ratio 0.9 L Vancomycin Trough Assessment & Plan - Assessment and Plan (Free Text) Assessment: Patient is a 61yo female with PMHx significant for HTN, hyperthyroidism, DM ( A1c 14.3), depression/anxiety who presented to the hospital with altered mentation and shortness of breath. Our service has been consulted for PEG evalaution -MRSA pneumonia -Atrial fibrillation with RVR on Cardizem gtt and Lovenox -B/L LE cellulitis -DKA resolved -Poorly controlled DM (A1c 14.3) -Respiratory failure requiring intermittent BIPAP, s/p mechanical ventilation -Dysphagia -Epistaxis with NGT trauma, resolved Plan: -NGT trauma noted previously with epistaxis and need for removal/nasal packing for hemostasis -Patient has also been agitated and removed NGT previously -Her altered mental status remains unexplained though possibly due to her ongoing infectious processes and initially by her DKA -There is no known family/POA/legal surrogate noted to consent for this patient , thus any procedure would have to be put on hold until this is attained -In order to place PEG, we would need consent, to optimize her medically, improve her pulmonary function and get pulmonary clearance as well as cardiology clearance given her ongoing AFib RVR requiring cardizem gtt. Moreover , she is currently anticoagulated with Lovenox which would have to be held for PEG placement. -Once these issues have been addressed we can re-visit PEG placement; in the time being, as suggested by BAIT PACKER, agree with placement of an NGT if possible - Date & Time Date: 12/01/16 Time: 06:10 <Gil Adan - Last Filed: 12/01/16 14:34> Meds - Medications Medications: Current Medications Acetaminophen (Tylenol 650mg/20.3ml Solution Ud) 650 mg GT Q6 PRN PRN Reason: Fever >100.4 F Last Admin: 11/16/16 08:59 Dose: 650 mg Budesonide (Pulmicort Respules) 0.25 mg INH RQ12 [facility] Last Admin: 12/01/16 07:22 Dose: 0.25 mg Diltiazem HCl (Cardizem) 60 mg PO Q6 [facility] Last Admin: 12/01/16 12:29 Dose: Not Given Enoxaparin Sodium (Lovenox) 110 mg SC Q12 [facility] Last Admin: 12/01/16 09:43 Dose: 110 mg Furosemide (Lasix) 40 mg IVP DAILY [facility] Last Admin: 12/01/16 09:40 Dose: 40 mg Vancomycin/Sodium Chloride (Vancocin) 200 mls @ 166.6 mls/hr IVPB Q12H [facility] Stop: 12/03/16 22:00 Last Admin: 12/01/16 09:41 Dose: 166.6 mls/hr Tigecycline 50 mg/ Sodium (Chloride) 100 mls @ 100 mls/hr IV Q12H [facility] Last Admin: 12/01/16 11:22 Dose: 100 mls/hr Diltiazem HCl 125 mg/ Dextrose 125 mls @ 5 mls/hr IV .Q24H [facility]; 5 MG/HR PRN Reason: Protocol Last Admin: 12/01/16 10:15 Dose: Not Given Insulin Glargine (Lantus) 13 unit SC HS [facility] Last Admin: 11/25/16 21:11 Dose: 13 u Insulin Human Regular (Novolin R) 0 unit SC Q6 [facility] PRN Reason: Protocol Last Admin: 12/01/16 12:29 Dose: 2 unit Ipratropium [place] (Atrovent) 0.5 mg IH RQ12 [facility] Last Admin: 12/01/16 07:22 Dose: 0.5 mg Methimazole (Tapazole) 10 mg PO TID [facility] Last Admin: 12/01/16 13:48 Dose: 10 mg Pantoprazole Sodium (Protonix Inj) 40 mg IVP DAILY [facility] Last Admin: 12/01/16 09:40 Dose: 40 mg Potassium Chloride (Potassium Chloride Oral Soln) 20 meq PO DAILY [facility] Last Admin: 12/01/16 10:00 Dose: Not Given Propofol (Diprivan) 20 mg IV ONCE PRN PRN Reason: Sedation Stop: 12/02/16 10:34 Last Admin: 11/27/16 12:08 Dose: 20 mg Vitamin A (Vitamin A & D Oint Ud Foilpak) 1 ea TOP BID [facility] Last Admin: 12/01/16 09:40 Dose: 1 ea Results - Vital Signs Recent Vital Signs: Last Vital Signs Temp 98.7 F 12/01/16 12:00 Pulse 120 H 12/01/16 12:00 Resp 18 04/13/17 12:00 BP 134/65 12/01/16 12:00 Pulse Ox 98 12/01/16 12:00 - Labs Result Diagrams: 12/01/16 06:41 12/01/16 06:41 Labs: Laboratory Results - last 24 hr 11/30/16 11/30/16 12/01/16 17:55 23:42 05:35 WBC RBC Hgb Hct MCV MCH MCHC RDW Plt Count MPV Neut % (Auto) Lymph % (Auto) [place] % (Auto) Eos % (Auto) Baso % (Auto) Neut # Lymph # [place] # Eos # Baso # Sodium Potassium Chloride Carbon Dioxide Anion Gap BUN Creatinine Est GFR ( Amer) Est GFR (Non-Af Amer) POC Glucose (mg/dL) 130 H 167 H 147 H Random Glucose Calcium Phosphorus Magnesium Total Bilirubin AST ALT Alkaline Phosphatase Total Protein Albumin Globulin Albumin/Globulin Ratio 12/01/16 12/01/16 06:41 11:41 WBC 6.8 RBC 3.97 Hgb 11.6 Hct 35.5 MCV 89.4 MCH 29.2 MCHC 32.6 L RDW 16.0 H Plt Count 170 MPV 8.7 Neut % (Auto) 70.5 Lymph % (Auto) 18.5 L [place] % (Auto) 8.8 Eos % (Auto) 1.5 Baso % (Auto) 0.7 Neut # 4.8 Lymph # 1.3 [place] # 0.6 Eos # 0.1 Baso # 0.0 Sodium 139 Potassium 3.2 L Chloride 97 L Carbon Dioxide 35 H Anion Gap 10 BUN 23 H Creatinine 0.5 L Est GFR ( Amer) > 60 Est GFR (Non-Af Amer) > 60 POC Glucose (mg/dL) 189 H Random Glucose 139 H Calcium 8.3 L Phosphorus 3.5 Magnesium 1.8 Total Bilirubin 1.3 AST 21 ALT 37 Alkaline Phosphatase 65 Total Protein 4.9 L Albumin 2.3 L Globulin 2.6 Albumin/Globulin Ratio 0.9 L Attending/Attestation - Attestation I have personally seen and examined this patient.: Yes I have fully participated in the care of the patient.: Yes I have reviewed all pertinent clinical information: Yes Notes (Text): 12/01/16 14:13 I have seen and examined patient with GI fellow. Agree with above documentation with the following additions. In brief, this is a 61 year old female with history of HTN, obesity, DM, hyperthyroidism, who initially presented to hospital with altered mental status and respiratory distress. Her hospital course was complicated by DKA, respiratory failure s/p intubation (now extubated), atrial fibrillation with RVR, cellulitis. GI called for evaluation of potential endoscopic gastrostomy placement. She was initially given NGT feeding following extubation, however she had a traumatic tube insertion with resulting epistaxis and nasal packing. Since then she has twice pulled out the NGT. Patient herself is not able to provide any additional details, further information obtained via chart review, discussion with nursing staff and patient 's god daughter. There has not been any reported complaint of abdominal pain, nausea, vomiting, fever/chills. HTN Obesity DM, poorly controlled, resolving DKA Atrial fibrillation, currently on lovenox Pneumonia Cellulitis Altered mental status (unclear baseline), dysphagia - Continue with antibiotic therapy as per medical team - Continue with cardizem drip for rapid atrial fibrillation as per cardiology - There are several issues that currently preclude PEG placement. Would request pulmonary and cardiac risk assessment/clearance prior to potential feeding tube placement given ongoing rapid atrial fibrillation and pneumonia. Additionally, the patient does not have any family members or designated power of district attorney available to provide consent for the procedure since she currently lacks capacity for informed medical decision making. A potential alternate would be a two physician consent for the procedure, however this is typically used for emergent procedures where the patient's life is at risk. Another alternative would be to establish a patient guardian who could provide consent. - Would therefore request public health social worker / ethical guidance regarding measures necessary to proceed with potential procedure. - Would begin PPN for time being or repeat trial of NGT placement until medical and consent issues are clarified - Will continue to monitor patient clinical course
[2016-12-01] MEDS: Budesonide 0.25 mg/2 ml Inhal Susp UD INH SCH ×2 (07:22→20:22)
[2016-12-01] MEDS: Ipratropium 0.02% Inhal Soln (0.5 mg/2.5 ml) UD IH SCH ×2 (07:22→20:22)
[2016-12-01] MEDS: Vitamins A & D Oint UD Foilpak TOP SCH ×2 (09:40→17:32)
[2016-12-01] MEDS: Potassium Chloride 20 mEq/15 ml LIQ UD PO SCH ×2 (09:40→10:00)
[2016-12-01] MEDS: Vancomycin 1 gm/NS 200 ml 200 ML IVPB SCH ×2 (09:41→21:58)
[2016-12-01] MEDS: Metoprolol Succinate 12.5 mg XL PO SCH (09:42)
[2016-12-01] MEDS: Enoxaparin 150 mg Syringe SC SCH ×2 (09:43→21:57)
[2016-12-01] MEDS ORDERED: Potassium Chloride 10 mEq 100 ML IVPB ONE ×2 (10:45→11:22)
--- NOTE | 2016-12-01 16:22 | CP.PCM.PN ---
Subjective - Date & Time of Evaluation Date of Evaluation: 12/01/16 Time of Evaluation: 16:22 - Subjective Subjective: CHIEF COMPLAINTS TODAY : AFEBRILE VS NOTED. s/p swallow evaluation 2 As reported by RN. Able to tolerate purree diet Intermittently confused seen by GI for PEG and events noted. ROS. HEENT : N. Resp : No SOB wheezing, cough Cardio : No CP, PND orthopnea GI : No abd. Pain, n/v [employer] : No headache , focal deficit. Musculoskel : N Ext. : Pedal pulses intact, no edema or calf pain Derm : N Psych : N. PE. Pt. is drowsy and awake in no distress. V.S As noted in the chart Head ,ear nose,throat and eyes : Normal. Neck : Supple with normal carotids. Lungs: bilateral rhonchi Heart : S1 & S2 normal irregular. . No murmur. S4 + Abd : Soft non tender with normal bowel sounds. Neuro : Moves all ext. with no localized deficit. Ext : BILATERAL LOWER EXTREMITY CELLULITIS WITH EDEMA. Neg. calf tenderness Derm : No rashes or decubitus ulcer. Radiology/Labs . ESR40 VANCO TROUGH 13.2 OKAY VANCO RANDOM 16.64 cREATININE 0.4/bun 16 lftS NORMAL chest x-ray 11/30 bilateral hilar prominence. Left basilar opacity with small left pleural effusion. Elevated right hemidiaphragm.. Objective - Vital Signs/Intake and Output Vital Signs (last 24 hours): Temp Pulse Resp BP Pulse Ox 98.7 F 120 H 18 134/65 98 12/01/16 12:00 12/01/16 12:00 12/01/16 12:00 12/01/16 12:00 12/01/16 12:00 Intake and Output: 12/01/16 12/01/16 06:59 18:59 Intake Total 15 Balance 15 - Medications Medications: Current Medications Acetaminophen (Tylenol 650mg/20.3ml Solution Ud) 650 mg GT Q6 PRN PRN Reason: Fever >100.4 F Last Admin: 11/16/16 08:59 Dose: 650 mg Budesonide (Pulmicort Respules) 0.25 mg INH RQ12 [facility] Last Admin: 12/01/16 07:22 Dose: 0.25 mg Diltiazem HCl (Cardizem) 60 mg PO Q6 [facility] Last Admin: 12/01/16 12:29 Dose: Not Given Enoxaparin Sodium (Lovenox) 110 mg SC Q12 [facility] Last Admin: 12/01/16 09:43 Dose: 110 mg Furosemide (Lasix) 40 mg IVP DAILY [facility] Last Admin: 12/01/16 09:40 Dose: 40 mg Vancomycin/Sodium Chloride (Vancocin) 200 mls @ 166.6 mls/hr IVPB Q12H [facility] Stop: 12/03/16 22:00 Last Admin: 12/01/16 09:41 Dose: 166.6 mls/hr Tigecycline 50 mg/ Sodium (Chloride) 100 mls @ 100 mls/hr IV Q12H [facility] Last Admin: 12/01/16 11:22 Dose: 100 mls/hr Diltiazem HCl 125 mg/ Dextrose 125 mls @ 5 mls/hr IV .Q24H [facility]; 5 MG/HR PRN Reason: Protocol Last Admin: 12/01/16 10:15 Dose: Not Given Insulin Glargine (Lantus) 13 unit SC HS [facility] Last Admin: 11/25/16 21:11 Dose: 13 u Insulin Human Regular (Novolin R) 0 unit SC Q6 [facility] PRN Reason: Protocol Last Admin: 12/01/16 12:29 Dose: 2 unit Ipratropium [place] (Atrovent) 0.5 mg IH RQ12 [facility] Last Admin: 12/01/16 07:22 Dose: 0.5 mg Methimazole (Tapazole) 10 mg PO TID [facility] Last Admin: 12/01/16 13:48 Dose: 10 mg Pantoprazole Sodium (Protonix Inj) 40 mg IVP DAILY [facility] Last Admin: 12/01/16 09:40 Dose: 40 mg Potassium Chloride (Potassium Chloride Oral Soln) 20 meq PO DAILY [facility] Last Admin: 12/01/16 10:00 Dose: Not Given Propofol (Diprivan) 20 mg IV ONCE PRN PRN Reason: Sedation Stop: 12/02/16 10:34 Last Admin: 11/27/16 12:08 Dose: 20 mg Vitamin A (Vitamin A & D Oint Ud Foilpak) 1 ea TOP BID [facility] Last Admin: 12/01/16 09:40 Dose: 1 ea - Labs Labs: 12/01/16 06:41 12/01/16 06:41 PT 12.0 SECONDS (9.7-12.2) 11/13/16 04:57 INR 1.1 11/13/16 04:57 APTT 38 SECONDS (21-34) H D 11/13/16 04:57 Assessment and Plan (1) Respiratory failure with hypoxia Status: Acute (2) Pneumonia Assessment & Plan: CONTINUE iv VANCOMYCIN 1 G EVERY 12 HOURLY. ON IV TYGACIL 100MG LOADING DOSE F/U BY 50MG IV Q 12HRLY 11/30/16 repeat blood cultures ordered 2 sets today 15 minutes apart. 11/30/16 follow-up blood cultures to adjust antibiotics. CASE DISCUSSED WITH DR SRI RIVERA -PMJimi. Status: Acute Status: Acute (3) Lower extremity cellulitis Assessment & Plan: PATIENT HAS BILATERAL CELLULITIS LOWER EXTREMITIES LEFT MORE THAN RIGHT. PATIENT ALSO HAS LYMPHEDEMA WITH SOME OOZING SEROUS DRAINAGE. CONTINUE DIURESIS GINGERLY. CONTINUE iv VANCOMYCIN 1 G EVERY 12 HOURLY. continue IV Tygacil 50 mg every 12 hourly for MRSA and gram-negative coverage. Status: Acute (4) Lymphedema of both lower extremities Status: Acute (5) Diabetes mellitus, insulin dependent (IDDM), uncontrolled Status: Chronic (6) Hyperthyroidism Status: Chronic (7) Atrial fibrillation with rapid ventricular response Status: Acute (8) Obesity (BMI 30-39.9) Status: Acute
--- NOTE | 2016-12-01 20:08 | CP.PCM.PN ---
Subjective - Date & Time of Evaluation Date of Evaluation: 12/01/16 Time of Evaluation: 20:02 - Subjective Subjective: IDDM & hyperthyroidism Objective - Vital Signs/Intake and Output Vital Signs (last 24 hours): Temp Pulse Resp BP Pulse Ox 98.8 F 104 H 19 129/68 98 12/01/16 16:00 12/01/16 16:00 12/01/16 16:00 12/01/16 16:00 12/01/16 16:00 Intake and Output: 12/01/16 12/02/16 18:59 06:59 Intake Total 355 Output Total 1500 Balance -1145 - Medications Medications: Current Medications Acetaminophen (Tylenol 650mg/20.3ml Solution Ud) 650 mg GT Q6 PRN PRN Reason: Fever >100.4 F Last Admin: 11/16/16 08:59 Dose: 650 mg Budesonide (Pulmicort Respules) 0.25 mg INH RQ12 [facility] Last Admin: 12/01/16 07:22 Dose: 0.25 mg Diltiazem HCl (Cardizem) 60 mg PO Q6 [facility] Last Admin: 12/01/16 17:51 Dose: Not Given Enoxaparin Sodium (Lovenox) 110 mg SC Q12 [facility] Last Admin: 12/01/16 09:43 Dose: 110 mg Furosemide (Lasix) 40 mg IVP DAILY [facility] Last Admin: 12/01/16 09:40 Dose: 40 mg Vancomycin/Sodium Chloride (Vancocin) 200 mls @ 166.6 mls/hr IVPB Q12H [facility] Stop: 12/03/16 22:00 Last Admin: 12/01/16 09:41 Dose: 166.6 mls/hr Tigecycline 50 mg/ Sodium (Chloride) 100 mls @ 100 mls/hr IV Q12H [facility] Last Admin: 12/01/16 11:22 Dose: 100 mls/hr Diltiazem HCl 125 mg/ Dextrose 125 mls @ 5 mls/hr IV .Q24H [facility]; 5 MG/HR PRN Reason: Protocol Last Admin: 12/01/16 10:15 Dose: Not Given Insulin Glargine (Lantus) 13 unit SC HS [facility] Last Admin: 11/25/16 21:11 Dose: 13 u Insulin Human Regular (Novolin R) 0 unit SC Q6 [facility] PRN Reason: Protocol Last Admin: 12/01/16 18:03 Dose: 2 unit Ipratropium [place] (Atrovent) 0.5 mg IH RQ12 [facility] Last Admin: 12/01/16 07:22 Dose: 0.5 mg Methimazole (Tapazole) 10 mg PO TID [facility] Last Admin: 12/01/16 18:00 Dose: Not Given Pantoprazole Sodium (Protonix Inj) 40 mg IVP DAILY [facility] Last Admin: 12/01/16 09:40 Dose: 40 mg Potassium Chloride (Potassium Chloride Oral Soln) 20 meq PO DAILY [facility] Last Admin: 12/01/16 10:00 Dose: Not Given Propofol (Diprivan) 20 mg IV ONCE PRN PRN Reason: Sedation Stop: 12/02/16 10:34 Last Admin: 11/27/16 12:08 Dose: 20 mg Vitamin A (Vitamin A & D Oint Ud Foilpak) 1 ea TOP BID [facility] Last Admin: 12/01/16 17:32 Dose: 1 ea - Labs Labs: 12/01/16 06:41 12/01/16 06:41 PT 12.0 SECONDS (9.7-12.2) 11/13/16 04:57 INR 1.1 11/13/16 04:57 APTT 38 SECONDS (21-34) H D 11/13/16 04:57 Assessment and Plan (1) Diabetes mellitus, insulin dependent (IDDM), uncontrolled Assessment & Plan: Endocrine consult f/u reason for consult: uncontrolled diabetes source : chrart review , pt awake , alert with OGT tube for bleeding unable to give history & as per chart review poor historian is 61 y/o admitted for a fib with rapid venttirucular resonse & DKA / bilateral lower extremities cellulites ,pt was intubated & also started on insulin drip glucose on admission 1023 . also was started on steroid 40 mg po bid , endocrine was contacted yesterday 11/12 for uncontrolled IDDM glucose in 300- 400 & also pt with hyperthyroidism on tapazole , blood glucose log :today 130 -160 NO hypoglycemia , s/p PEG placement evaluation who recommended ethical guidance since pt. has no health proxy on record, puree diet was recommended by swallowing evaluation , however pt refused it Allergy NKDA Past medical history : HTN , pedal edema Past surgical history : not documented Psychiatry history : (+) psychiatry disorder Social history : (+)smoking , ETOH use , illicit drug use Family history : unknown ROS: Constitutional: no fever ,tiredness/weakness .HEENT: no earache, change in voice .Respiratory: no cough, sob . CVS :no chest pain, no palpitations . Abdomen : no abdominal pain, no nausea /vomiting , no change bowel movement . 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 Extremities : (+) edema , no tremors . Skin: no itching, no rash Physical exam Well developed , awake & alert , ex-tubated , on vent mask/bipap , on continuos feeding VSS , aferbril HEENT: norm cephalic, atraumatic , no lid lag , no exophthalmos , mild stare NECK: supple, no palpable lymphadenopathy THYROID: unable to palpable thyroid , not tender CHEST: fair air entry, bilateral, CVS: S1,S2 , ABDOMEN: bowel sound present, benign, obese, no wide purple striae , no bruises EXTREMITIES: bilateral hyper pigmented skin with edema, clubbing or cyanosis, no palpable hand tremors Skin : acanthosis nigricans lab: T4 7.3 T3 1.00 11/25 Ft4 2.01, wbc 10.9 11/16 FT4 2.59 , tsh <0.02 , T4 8.88 , wbc 9 , LFT wnl thyroid antibodies (-) tsh < 0.02 ,ft4 2.31 , t4 12.1 , a1c 14 , wbc 10.4 Assessment hypoglycemia , asymtomatic ,resolved uncontrolled IDDM s/p steroids induced hyperglycemia , last dose yesterday /5 hyperthyroidisim with afib , on cardiazem & lopressor pneumonia /l cellutitis a fib bleeding /fever /sepsis obesity Plan - lantus still on hold continue humalin R low dose coverage q6h on tapazole 10 mg po tid will monitor Status: Chronic (2) Hyperthyroidism Status: Chronic (3) Atrial fibrillation with rapid ventricular response Status: Acute (4) Pneumonia Status: Acute
[2016-12-02] MEDS: (Novolin R) Insulin Human Regular 100 units/ml vial SC SCH ×4 (00:54→18:22)
[2016-12-02 06:48] LABS: CHLORIDE 95 mmol/L (98-107); POTASSIUM 2.9 mmol/L (3.6-5.2); SODIUM 136 mmol/L (132-148)
[2016-12-02 06:51] LABS: BLOOD UREA NITROGEN 26 mg/dL (7-17); CARBON DIOXIDE 33 mmol/L (22-30); GFR AFRICAN-AMERICAN > 60; GLUCOSE,RANDOM 266 mg/dL (65-105)
[2016-12-02 06:52] LABS: CALCIUM 7.6 mg/dl (8.6-10.4)
[2016-12-02] MEDS: Budesonide 0.25 mg/2 ml Inhal Susp UD INH SCH ×2 (07:24→19:24)
[2016-12-02] MEDS: Ipratropium 0.02% Inhal Soln (0.5 mg/2.5 ml) UD IH SCH ×2 (07:24→19:24)
--- NOTE | 2016-12-02 07:53 | CP.PCM.PN ---
<YanisamanthajasonNain - Last Filed: 12/02/16 11:36> Subjective - Date & Time of Evaluation Date of Evaluation: 12/02/16 Time of Evaluation: 07:50 - Subjective Subjective: PGY4 GI Fellow Progress Note Patient seen and examined bedside this morning. The patient does not recognize me from yesterday and is unable to tell me where she is at present. She denies any complaints at the moment. Denies abdominal pain, chest pain, SOB. Per nursing, pt had 2 BM early today. 12 system ROS limited given mentation. Objective - Vital Signs/Intake and Output Vital Signs (last 24 hours): Temp Pulse Resp BP Pulse Ox 97.3 F L 81 15 119/59 L 98 12/02/16 04:00 12/02/16 04:00 12/02/16 04:00 12/02/16 04:00 12/02/16 04:00 Intake and Output: 12/02/16 12/02/16 06:59 18:59 Intake Total 210 Output Total 650 Balance -440 - Medications Medications: Current Medications Acetaminophen (Tylenol 650mg/20.3ml Solution Ud) 650 mg GT Q6 PRN PRN Reason: Fever >100.4 F Last Admin: 11/16/16 08:59 Dose: 650 mg Budesonide (Pulmicort Respules) 0.25 mg INH RQ12 [facility] Last Admin: 12/02/16 07:24 Dose: 0.25 mg Diltiazem HCl (Cardizem) 60 mg PO Q6 [facility] Last Admin: 12/02/16 06:23 Dose: Not Given Enoxaparin Sodium (Lovenox) 110 mg SC Q12 [facility] Last Admin: 12/01/16 21:57 Dose: 110 mg Furosemide (Lasix) 40 mg IVP DAILY [facility] Last Admin: 12/01/16 09:40 Dose: 40 mg Vancomycin/Sodium Chloride (Vancocin) 200 mls @ 166.6 mls/hr IVPB Q12H [facility] Stop: 12/03/16 22:00 Last Admin: 12/01/16 21:58 Dose: 166.6 mls/hr Tigecycline 50 mg/ Sodium (Chloride) 100 mls @ 100 mls/hr IV Q12H [facility] Last Admin: 12/01/16 23:49 Dose: 100 mls/hr Diltiazem HCl 125 mg/ Dextrose 125 mls @ 5 mls/hr IV .Q24H [facility]; 5 MG/HR PRN Reason: Protocol Last Admin: 12/01/16 10:15 Dose: Not Given Insulin Glargine (Lantus) 13 unit SC HS [facility] Last Admin: 11/25/16 21:11 Dose: 13 u Insulin Human Regular (Novolin R) 0 unit SC Q6 [facility] PRN Reason: Protocol Last Admin: 12/02/16 06:08 Dose: 4 unit Ipratropium [place] (Atrovent) 0.5 mg IH RQ12 [facility] Last Admin: 12/02/16 07:24 Dose: 0.5 mg Methimazole (Tapazole) 10 mg PO TID [facility] Last Admin: 12/01/16 18:00 Dose: Not Given Pantoprazole Sodium (Protonix Inj) 40 mg IVP DAILY [facility] Last Admin: 12/01/16 09:40 Dose: 40 mg Potassium Chloride (Potassium Chloride Oral Soln) 20 meq PO DAILY [facility] Last Admin: 12/01/16 10:00 Dose: Not Given Propofol (Diprivan) 20 mg IV ONCE PRN PRN Reason: Sedation Stop: 12/02/16 10:34 Last Admin: 11/27/16 12:08 Dose: 20 mg Vitamin A (Vitamin A & D Oint Ud Foilpak) 1 ea TOP BID [facility] Last Admin: 12/01/16 17:32 Dose: 1 ea - Labs Labs: 12/01/16 06:41 12/02/16 06:29 PT 12.0 SECONDS (9.7-12.2) 11/13/16 04:57 INR 1.1 11/13/16 04:57 APTT 38 SECONDS (21-34) H D 11/13/16 04:57 - Constitutional Appears: Non-toxic, No Acute Distress, Confused - Eye Exam Eye Exam: EOMI, PERRL - ENT Exam ENT Exam: Mucous Membranes Dry - Respiratory Exam Respiratory Exam: Rales. absent: Clear to Ausculation Bilateral, Rhonchi, Wheezes - Cardiovascular Exam Cardiovascular Exam: Irregular Rhythm, +S1, +S2 Additional comments: regular rate - GI/Abdominal Exam GI & Abdominal Exam: Soft, Normal Bowel Sounds. absent: Distended, Firm, Guarding, Rigid, Tenderness, Organomegaly - Extremities Exam Additional comments: B/L LE cellulitic lesions - Neurological Exam Neurological Exam: Altered, Awake. absent: Oriented x3 - Psychiatric Exam Psychiatric exam: Flat Affect - Skin Skin Exam: Dry, Warm Assessment and Plan - Assessment and Plan (Free Text) Assessment: Patient is a 61yo female with PMHx significant for HTN, hyperthyroidism, DM ( A1c 14.3), depression/anxiety who presented to the hospital with altered mentation and shortness of breath. Our service has been consulted for PEG evalaution -MRSA pneumonia -Atrial fibrillation with RVR on Cardizem gtt and Lovenox -B/L LE cellulitis -DKA resolved -Poorly controlled DM (A1c 14.3) -Respiratory failure requiring intermittent BIPAP, s/p mechanical ventilation -Dysphagia -Epistaxis with NGT trauma, resolved Plan: -Recommend one to one assistance with oral intake or repeat swallow eval now that patient more alert -Placement of NGT with TF if deemed to have dysphagia; if cannot place, consider initiation of PPN/TPN -Given patient's altered mentation would need consent from POA or surrogate which the patient has not designated. She was never and does not have children. Consider ethics/social service eval for assistance with obtaining a guardian for this patient -Once/if consent obtained, patient would require pulmonary/cardiology risk assessment/clearance for procedure as well as discussion as to holding anticoagulation prior to placement -Continue IV ABX for ongoing pneumonia, ID following -Off cardizem gtt this AM, regular rate, cardiology following <Phu Edgar - Last Filed: 12/02/16 13:41> Objective - Vital Signs/Intake and Output Vital Signs (last 24 hours): Temp Pulse Resp BP Pulse Ox 98.4 F 100 H 16 112/53 L 99 12/02/16 07:59 12/02/16 09:43 12/02/16 09:43 12/02/16 09:53 12/02/16 09:43 Intake and Output: 12/02/16 12/02/16 06:59 18:59 Intake Total 210 15 Output Total 650 Balance -440 15 - Medications Medications: Current Medications Acetaminophen (Tylenol 650mg/20.3ml Solution Ud) 650 mg GT Q6 PRN PRN Reason: Fever >100.4 F Last Admin: 11/16/16 08:59 Dose: 650 mg Budesonide (Pulmicort Respules) 0.25 mg INH RQ12 [facility] Last Admin: 12/02/16 07:24 Dose: 0.25 mg Diltiazem HCl (Cardizem) 60 mg PO Q6 [facility] Last Admin: 12/02/16 11:54 Dose: 60 mg Enoxaparin Sodium (Lovenox) 110 mg SC Q12 [facility] Last Admin: 12/02/16 09:52 Dose: 110 mg Furosemide (Lasix) 40 mg IVP DAILY [facility] Last Admin: 12/02/16 09:53 Dose: 40 mg Vancomycin/Sodium Chloride (Vancocin) 200 mls @ 166.6 mls/hr IVPB Q12H [facility] Stop: 12/03/16 22:00 Last Admin: 12/02/16 09:55 Dose: 166.6 mls/hr Tigecycline 50 mg/ Sodium (Chloride) 100 mls @ 100 mls/hr IV Q12H [facility] Last Admin: 12/02/16 11:54 Dose: 100 mls/hr Diltiazem HCl 125 mg/ Dextrose 125 mls @ 5 mls/hr IV .Q24H [facility]; 5 MG/HR PRN Reason: Protocol Last Admin: 12/02/16 09:43 Dose: 5 mls/hr Insulin Glargine (Lantus) 13 unit SC HS [facility] Last Admin: 11/25/16 21:11 Dose: 13 u Insulin Human Regular (Novolin R) 0 unit SC Q6 [facility] PRN Reason: Protocol Last Admin: 12/02/16 11:55 Dose: Not Given Ipratropium [place] (Atrovent) 0.5 mg IH RQ12 [facility] Last Admin: 12/02/16 07:24 Dose: 0.5 mg Methimazole (Tapazole) 10 mg PO TID [facility] Last Admin: 12/02/16 09:55 Dose: 10 mg Pantoprazole Sodium (Protonix Inj) 40 mg IVP DAILY [facility] Last Admin: 12/02/16 09:52 Dose: 40 mg Potassium Chloride (Potassium Chloride Oral Soln) 20 meq PO DAILY [facility] Last Admin: 12/02/16 09:52 Dose: 20 meq Vitamin A (Vitamin A & D Oint Ud Foilpak) 1 ea TOP BID [facility] Last Admin: 12/02/16 09:52 Dose: 1 ea - Labs Labs: 12/01/16 06:41 12/02/16 06:29 PT 12.0 SECONDS (9.7-12.2) 11/13/16 04:57 INR 1.1 11/13/16 04:57 APTT 38 SECONDS (21-34) H D 11/13/16 04:57 Attending/Attestation - Attestation I have personally seen and examined this patient.: Yes I have fully participated in the care of the patient.: Yes I have reviewed all pertinent clinical information, including history, physical exam and plan: Yes Notes (Text): 12/02/16 13:37 61 year old female with history of HTN, obesity, DM, hyperthyroidism, who admitted with altered mental status, DKA, respiratory failure, Afib with RVR, cellulitis, traumatic NG insertion. We are consulted for peg evaluation. 1. Dysphagia Plan: -currently, patient is not a suitable candidate for a PEG -it is not clear that her dysphagia precludes normal oral intake -she currently declines PEG placement when offered, although she may not have decisional capacity -in addition, there is currently no surrogate decision maker that could make this decision for her -will sign off, should things change, please call us back, thank you
[2016-12-02] MEDS ORDERED: Potassium Chloride 10 mEq 100 ML IVPB ONE ×2 (08:53→18:16)
[2016-12-02] MEDS: Potassium Chloride 20 mEq/15 ml LIQ UD PO SCH (09:52)
[2016-12-02] MEDS: Vitamins A & D Oint UD Foilpak TOP SCH ×2 (09:52→18:23)
[2016-12-02] MEDS: Enoxaparin 150 mg Syringe SC SCH ×2 (09:52→21:35)
[2016-12-02] MEDS: Vancomycin 1 gm/NS 200 ml 200 ML IVPB SCH ×2 (09:55→21:35)
--- NOTE | 2016-12-02 15:53 | CP.PCM.PN ---
Subjective - Date & Time of Evaluation Date of Evaluation: 12/02/16 Time of Evaluation: 15:53 - Subjective Subjective: AFEBRILE VS NOTED. awake but confused, response to name but unaware of surroundings. the patient out of bed on cardiac chair ROS. HEENT : N. Resp : No SOB wheezing, cough Cardio : No CP, PND orthopnea GI : No abd. Pain, n/v RESEARCH PROFESSIONAL : No headache , focal deficit. Musculoskel : N Ext. : Pedal pulses intact, no edema or calf pain Derm : N Psych : N. PE. Pt. is drowsy and awake in no distress. V.S As noted in the chart Head ,ear nose,throat and eyes : Normal. Neck : Supple with normal carotids. Lungs: bilateral rhonchi Heart : S1 & S2 normal irregular. . No murmur. S4 + Abd : Soft non tender with normal bowel sounds. Neuro : Moves all ext. with no localized deficit. Ext : BILATERAL LOWER EXTREMITY CELLULITIS WITH EDEMA improving. Neg. calf tenderness Derm : No rashes or decubitus ulcer. Radiology/Labs . BLOOD CULTURES -VE GROWTH TO DATE WBC 6.8, platelets 170 ESR40 VANCO TROUGH 13.2 OKAY VANCO RANDOM 16.64 cREATININE 0.4/bun 26 lftS NORMAL urine culture 11/30/16 +ve YEAST SP ( ? COLONIZATION VS CONTAMINANT ) PT WITH FOLYS chest x-ray 11/30 bilateral hilar prominence. Left basilar opacity with small left pleural effusion. Elevated right hemidiaphragm.. Objective - Vital Signs/Intake and Output Vital Signs (last 24 hours): Temp Pulse Resp BP Pulse Ox 98.9 F 78 18 129/74 99 12/02/16 12:00 12/02/16 12:00 12/02/16 12:00 12/02/16 12:00 12/02/16 09:43 Intake and Output: 12/02/16 12/02/16 06:59 18:59 Intake Total 210 15 Output Total 650 Balance -440 15 - Medications Medications: Current Medications Acetaminophen (Tylenol 650mg/20.3ml Solution Ud) 650 mg GT Q6 PRN PRN Reason: Fever >100.4 F Last Admin: 11/16/16 08:59 Dose: 650 mg Budesonide (Pulmicort Respules) 0.25 mg INH RQ12 [facility] Last Admin: 12/02/16 07:24 Dose: 0.25 mg Diltiazem HCl (Cardizem) 60 mg PO Q6 [facility] Last Admin: 12/02/16 11:54 Dose: 60 mg Enoxaparin Sodium (Lovenox) 110 mg SC Q12 [facility] Last Admin: 12/02/16 09:52 Dose: 110 mg Furosemide (Lasix) 40 mg IVP DAILY [facility] Last Admin: 12/02/16 09:53 Dose: 40 mg Vancomycin/Sodium Chloride (Vancocin) 200 mls @ 166.6 mls/hr IVPB Q12H [facility] Stop: 12/03/16 22:00 Last Admin: 12/02/16 09:55 Dose: 166.6 mls/hr Tigecycline 50 mg/ Sodium (Chloride) 100 mls @ 100 mls/hr IV Q12H [facility] Last Admin: 12/02/16 11:54 Dose: 100 mls/hr Diltiazem HCl 125 mg/ Dextrose 125 mls @ 5 mls/hr IV .Q24H [facility]; 5 MG/HR PRN Reason: Protocol Last Admin: 12/02/16 09:43 Dose: 5 mls/hr Insulin Glargine (Lantus) 13 unit SC HS [facility] Last Admin: 11/25/16 21:11 Dose: 13 u Insulin Human Regular (Novolin R) 0 unit SC Q6 [facility] PRN Reason: Protocol Last Admin: 12/02/16 11:55 Dose: Not Given Ipratropium [place] (Atrovent) 0.5 mg IH RQ12 [facility] Last Admin: 12/02/16 07:24 Dose: 0.5 mg Methimazole (Tapazole) 10 mg PO TID [facility] Last Admin: 12/02/16 14:12 Dose: 10 mg Pantoprazole Sodium (Protonix Inj) 40 mg IVP DAILY [facility] Last Admin: 12/02/16 09:52 Dose: 40 mg Potassium Chloride (Potassium Chloride Oral Soln) 20 meq PO DAILY [facility] Last Admin: 12/02/16 09:52 Dose: 20 meq Vitamin A (Vitamin A & D Oint Ud Foilpak) 1 ea TOP BID [facility] Last Admin: 12/02/16 09:52 Dose: 1 ea - Labs Labs: 12/01/16 06:41 12/02/16 06:29 PT 12.0 SECONDS (9.7-12.2) 11/13/16 04:57 INR 1.1 11/13/16 04:57 APTT 38 SECONDS (21-34) H D 11/13/16 04:57 Assessment and Plan (1) Respiratory failure with hypoxia Status: Acute (2) Pneumonia Assessment & Plan: CONTINUE iv VANCOMYCIN 1 G EVERY 12 HOURLY. ON IV TYGACIL 100MG LOADING DOSE F/U BY 50MG IV Q 12HRLY 11/30/16. PULMONARY TOILET. Status: Acute (3) Lower extremity cellulitis Assessment & Plan: PATIENT HAS BILATERAL CELLULITIS LOWER EXTREMITIES LEFT MORE THAN RIGHT WHICH IS IMPROVING SLOWLY. PATIENT ALSO HAS LYMPHEDEMA WITH SOME OOZING SEROUS DRAINAGE. CONTINUE DIURESIS GINGERLY. CONTINUE iv VANCOMYCIN 1 G EVERY 12 HOURLY. continue IV Tygacil 50 mg every 12 hourly for MRSA and gram-negative coverage. Status: Acute (4) Lymphedema of both lower extremities Status: Acute (5) Diabetes mellitus, insulin dependent (IDDM), uncontrolled Status: Chronic (6) Hyperthyroidism Status: Chronic (7) Atrial fibrillation with rapid ventricular response Status: Acute (8) Obesity (BMI 30-39.9) Status: Acute (9) Candiduria Assessment & Plan: PATIENT HAS A Brown. REPEAT CULTURES URINE 11/30/16 POSITIVE FOR YEAST. CONSIDER CHANGING BROWN CATHETER AND CLEAN CATCH UA ,URINE CULTURE. Status: Acute
[2016-12-02] MEDS: Potassium Chloride 10 mEq 100 ML IVPB SCH ×4 (18:18→23:30)
--- NOTE | 2016-12-02 18:50 | CP.PCM.PN ---
Subjective - Date & Time of Evaluation Date of Evaluation: 12/01/16 Time of Evaluation: 09:25 - Subjective Subjective: Pt seen and examined, remains confused s/p peg Objective - Vital Signs/Intake and Output Vital Signs (last 24 hours): Temp Pulse Resp BP Pulse Ox 98.8 F 78 18 129/74 99 12/02/16 16:00 12/02/16 12:00 12/02/16 12:00 12/02/16 12:00 12/02/16 09:43 Intake and Output: 12/02/16 12/02/16 06:59 18:59 Intake Total 210 15 Output Total 650 Balance -440 15 - Medications Medications: Current Medications Acetaminophen (Tylenol 650mg/20.3ml Solution Ud) 650 mg GT Q6 PRN PRN Reason: Fever >100.4 F Last Admin: 11/16/16 08:59 Dose: 650 mg Budesonide (Pulmicort Respules) 0.25 mg INH RQ12 [facility] Last Admin: 12/02/16 07:24 Dose: 0.25 mg Diltiazem HCl (Cardizem) 60 mg PO Q6 [facility] Last Admin: 12/02/16 18:17 Dose: 60 mg Enoxaparin Sodium (Lovenox) 110 mg SC Q12 [facility] Last Admin: 12/02/16 09:52 Dose: 110 mg Furosemide (Lasix) 40 mg IVP DAILY [facility] [place] Last Admin: 12/02/16 09:53 Dose: 40 mg Vancomycin/Sodium Chloride (Vancocin) 200 mls @ 166.6 mls/hr IVPB Q12H [facility] Stop: 12/03/16 22:00 Last Admin: 12/02/16 09:55 Dose: 166.6 mls/hr Tigecycline 50 mg/ Sodium ([facility]) 100 mls @ 100 mls/hr IV Q12H [facility] Last Admin: 12/02/16 11:54 Dose: 100 mls/hr Diltiazem HCl 125 mg/ Dextrose 125 mls @ 5 mls/hr IV .Q24H [facility]; 5 MG/HR PRN Reason: Protocol Last Admin: 12/02/16 09:43 Dose: 5 mls/hr Potassium Chloride (Potassium Chloride 10 Meq/100 Ml) 100 mls @ 100 mls/hr IVPB Q2 [facility] Stop: 12/03/16 00:59 Last Admin: 12/02/16 18:18 Dose: 100 mls/hr Insulin Glargine (Lantus) 13 unit SC HS [facility] Last Admin: 11/25/16 21:11 Dose: 13 u Insulin Human Regular (Novolin R) 0 unit SC Q6 [facility] PRN Reason: Protocol Last Admin: 12/02/16 18:22 Dose: Not Given Ipratropium [place] (Atrovent) 0.5 mg IH RQ12 [facility] [place] Last Admin: 12/02/16 07:24 Dose: 0.5 mg Methimazole (Tapazole) 10 mg PO TID [facility] [place] Last Admin: 12/02/16 18:17 Dose: 10 mg Pantoprazole Sodium (Protonix Inj) 40 mg IVP DAILY [facility] [place] Last Admin: 12/02/16 09:52 Dose: 40 mg Potassium Chloride (Potassium Chloride Oral Soln) 20 meq PO DAILY [facility] [place] Last Admin: 12/02/16 09:52 Dose: 20 meq Vitamin A (Vitamin A & D Oint Ud Foilpak) 1 ea TOP BID [facility] [place] Last Admin: 12/02/16 18:23 Dose: 1 ea - Labs Labs: 12/01/16 06:41 12/02/16 06:29 PT 12.0 SECONDS (9.7-12.2) 11/13/16 04:57 INR 1.1 11/13/16 04:57 APTT 38 SECONDS (21-34) H D 11/13/16 04:57 - Constitutional Appears: No Acute Distress, Chronically Ill - Head Exam Head Exam: ATRAUMATIC, NORMAL INSPECTION, NORMOCEPHALIC - Eye Exam Eye Exam: EOMI, Normal appearance, PERRL Pupil Exam: NORMAL ACCOMODATION, PERRL - Respiratory Exam Respiratory Exam: Clear to Ausculation Bilateral, NORMAL BREATHING PATTERN - Cardiovascular Exam Cardiovascular Exam: REGULAR RHYTHM, +S1, +S2. absent: Murmur - GI/Abdominal Exam GI & Abdominal Exam: Soft, Normal Bowel Sounds. absent: Tenderness Assessment and Plan (1) Diabetes Status: Chronic (2) HTN (hypertension) Status: Chronic (3) Bilateral lower leg cellulitis Status: Deleted (4) Atrial fibrillation with rapid ventricular response Status: Acute (5) CHF (congestive heart failure) Status: Acute (6) Pleural effusion Status: Acute
--- NOTE | 2016-12-02 18:51 | CP.PCM.PN ---
Subjective - Date & Time of Evaluation Date of Evaluation: 12/02/16 Time of Evaluation: 09:25 - Subjective Subjective: Denies fever or chills, denies chest pain. Status post Gi eval for peg placement yesterday Objective - Vital Signs/Intake and Output Vital Signs (last 24 hours): Temp Pulse Resp BP Pulse Ox 98.8 F 78 18 129/74 99 12/02/16 16:00 12/02/16 12:00 12/02/16 12:00 12/02/16 12:00 12/02/16 09:43 Intake and Output: 12/02/16 12/02/16 06:59 18:59 Intake Total 210 15 Output Total 650 Balance -440 15 - Medications Medications: Current Medications Acetaminophen (Tylenol 650mg/20.3ml Solution Ud) 650 mg GT Q6 PRN PRN Reason: Fever >100.4 F Last Admin: 11/16/16 08:59 Dose: 650 mg Budesonide (Pulmicort Respules) 0.25 mg INH RQ12 [facility] Last Admin: 12/02/16 07:24 Dose: 0.25 mg Diltiazem HCl (Cardizem) 60 mg PO Q6 [facility] Last Admin: 12/02/16 18:17 Dose: 60 mg Enoxaparin Sodium (Lovenox) 110 mg SC Q12 [facility] Last Admin: 12/02/16 09:52 Dose: 110 mg Furosemide (Lasix) 40 mg IVP DAILY [facility] Last Admin: 12/02/16 09:53 Dose: 40 mg Vancomycin/Sodium Chloride (Vancocin) 200 mls @ 166.6 mls/hr IVPB Q12H [facility] Stop: 12/03/16 22:00 Last Admin: 12/02/16 09:55 Dose: 166.6 mls/hr Tigecycline 50 mg/ Sodium (Chloride) 100 mls @ 100 mls/hr IV Q12H [facility] Last Admin: 12/02/16 11:54 Dose: 100 mls/hr Diltiazem HCl 125 mg/ Dextrose 125 mls @ 5 mls/hr IV .Q24H [facility]; 5 MG/HR PRN Reason: Protocol Last Admin: 12/02/16 09:43 Dose: 5 mls/hr Potassium Chloride (Potassium Chloride 10 Meq/100 Ml) 100 mls @ 100 mls/hr IVPB Q2 [facility] Stop: 12/03/16 00:59 Last Admin: 12/02/16 18:18 Dose: 100 mls/hr Insulin Glargine (Lantus) 13 unit SC HS [facility] Last Admin: 11/25/16 21:11 Dose: 13 u Insulin Human Regular (Novolin R) 0 unit SC Q6 [facility] PRN Reason: Protocol Last Admin: 12/02/16 18:22 Dose: Not Given Ipratropium [place] (Atrovent) 0.5 mg IH RQ12 [facility] Last Admin: 12/02/16 07:24 Dose: 0.5 mg Methimazole (Tapazole) 10 mg PO TID [facility] Last Admin: 12/02/16 18:17 Dose: 10 mg Pantoprazole Sodium (Protonix Inj) 40 mg IVP DAILY [facility] Last Admin: 12/02/16 09:52 Dose: 40 mg Potassium Chloride (Potassium Chloride Oral Soln) 20 meq PO DAILY [facility] Last Admin: 12/02/16 09:52 Dose: 20 meq Vitamin A (Vitamin A & D Oint Ud Foilpak) 1 ea TOP BID [facility] Last Admin: 12/02/16 18:23 Dose: 1 ea - Labs Labs: 12/01/16 06:41 12/02/16 06:29 PT 12.0 SECONDS (9.7-12.2) 11/13/16 04:57 INR 1.1 11/13/16 04:57 APTT 38 SECONDS (21-34) H D 11/13/16 04:57 - Constitutional Appears: No Acute Distress, Chronically Ill - Head Exam Head Exam: ATRAUMATIC, NORMAL INSPECTION, NORMOCEPHALIC - Eye Exam Eye Exam: EOMI, Normal appearance, PERRL Pupil Exam: NORMAL ACCOMODATION, PERRL - Respiratory Exam Respiratory Exam: Clear to Ausculation Bilateral, NORMAL BREATHING PATTERN - Cardiovascular Exam Cardiovascular Exam: REGULAR RHYTHM, +S1, +S2. absent: Murmur - GI/Abdominal Exam GI & Abdominal Exam: Soft, Normal Bowel Sounds. absent: Tenderness - Neurological Exam Neurological Exam: Alert, Awake, CN II-XII Intact, Normal Gait, Oriented x3 Assessment and Plan (1) Diabetes Status: Chronic (2) HTN (hypertension) Status: Chronic (3) Bilateral lower leg cellulitis Status: Deleted (4) Atrial fibrillation with rapid ventricular response Status: Acute (5) CHF (congestive heart failure) Status: Acute (6) Pleural effusion Status: Acute
--- NOTE | 2016-12-02 19:43 | CP.PCM.PN ---
Subjective - Date & Time of Evaluation Date of Evaluation: 12/02/16 Time of Evaluation: 19:41 - Subjective Subjective: IDDM & hyperthyroidism Objective - Vital Signs/Intake and Output Vital Signs (last 24 hours): Temp Pulse Resp BP Pulse Ox 98.8 F 78 18 129/74 99 12/02/16 16:00 12/02/16 12:00 12/02/16 12:00 12/02/16 12:00 12/02/16 09:43 Intake and Output: 12/02/16 12/03/16 18:59 06:59 Intake Total 175 Output Total 2500 Balance -2325 - Medications Medications: Current Medications Acetaminophen (Tylenol 650mg/20.3ml Solution Ud) 650 mg GT Q6 PRN PRN Reason: Fever >100.4 F Last Admin: 11/16/16 08:59 Dose: 650 mg Budesonide (Pulmicort Respules) 0.25 mg INH RQ12 [facility] Last Admin: 12/02/16 19:24 Dose: 0.25 mg Diltiazem HCl (Cardizem) 60 mg PO Q6 [facility] Last Admin: 12/02/16 18:17 Dose: 60 mg Enoxaparin Sodium (Lovenox) 110 mg SC Q12 [facility] Last Admin: 12/02/16 09:52 Dose: 110 mg Furosemide (Lasix) 40 mg IVP DAILY [facility] Last Admin: 12/02/16 09:53 Dose: 40 mg Vancomycin/Sodium Chloride (Vancocin) 200 mls @ 166.6 mls/hr IVPB Q12H [facility] Stop: 12/03/16 22:00 Last Admin: 12/02/16 09:55 Dose: 166.6 mls/hr Tigecycline 50 mg/ Sodium (Chloride) 100 mls @ 100 mls/hr IV Q12H [facility] Last Admin: 12/02/16 11:54 Dose: 100 mls/hr Diltiazem HCl 125 mg/ Dextrose 125 mls @ 5 mls/hr IV .Q24H [facility]; 5 MG/HR PRN Reason: Protocol Last Admin: 12/02/16 09:43 Dose: 5 mls/hr Potassium Chloride (Potassium Chloride 10 Meq/100 Ml) 100 mls @ 100 mls/hr IVPB Q2 [facility] Stop: 12/03/16 00:59 Last Admin: 12/02/16 19:30 Dose: 100 mls/hr Insulin Glargine (Lantus) 13 unit SC HS [facility] Last Admin: 11/25/16 21:11 Dose: 13 u Insulin Human Regular (Novolin R) 0 unit SC Q6 [facility] PRN Reason: Protocol Last Admin: 12/02/16 18:22 Dose: Not Given Ipratropium [place] (Atrovent) 0.5 mg IH RQ12 [facility] Last Admin: 12/02/16 19:24 Dose: 0.5 mg Methimazole (Tapazole) 10 mg PO TID [facility] Last Admin: 12/02/16 18:17 Dose: 10 mg Pantoprazole Sodium (Protonix Inj) 40 mg IVP DAILY [facility] Last Admin: 12/02/16 09:52 Dose: 40 mg Potassium Chloride (Potassium Chloride Oral Soln) 20 meq PO DAILY [facility] Last Admin: 12/02/16 09:52 Dose: 20 meq Vitamin A (Vitamin A & D Oint Ud Foilpak) 1 ea TOP BID [facility] Last Admin: 12/02/16 18:23 Dose: 1 ea - Labs Labs: 12/01/16 06:41 12/02/16 06:29 PT 12.0 SECONDS (9.7-12.2) 11/13/16 04:57 INR 1.1 11/13/16 04:57 APTT 38 SECONDS (21-34) H D 11/13/16 04:57 Assessment and Plan (1) Diabetes mellitus, insulin dependent (IDDM), uncontrolled Assessment & Plan: Endocrine consult f/u reason for consult: uncontrolled diabetes source : chrart review , pt awake , alert with OGT tube for bleeding unable to give history & as per chart review poor historian is 61 y/o admitted for a fib with rapid venttirucular resonse & DKA / bilateral lower extremities cellulites ,pt was intubated & also started on insulin drip glucose on admission 1023 . also was started on steroid 40 mg po bid , endocrine was contacted yesterday 11/12 for uncontrolled IDDM glucose in 300- 400 & also pt with hyperthyroidism on tapazole , blood glucose log :today 140 -180 NO hypoglycemia , s/p PEG placement evaluation who recommended ethical guidance since pt. has no health proxy on record, Allergy NKDA Past medical history : HTN , pedal edema Past surgical history : not documented Psychiatry history : (+) psychiatry disorder Social history : (+)smoking , ETOH use , illicit drug use Family history : unknown ROS: Constitutional: no fever ,tiredness/weakness .HEENT: no earache, change in voice .Respiratory: no cough, sob . CVS :no chest pain, no palpitations . Abdomen : no abdominal pain, no nausea /vomiting , no change bowel movement . 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 Extremities : (+) edema , no tremors . Skin: no itching, no rash Physical exam Well developed , awake & alert , ex-tubated , on vent mask/bipap , on continuos feeding VSS , aferbril HEENT: norm cephalic, atraumatic , no lid lag , no exophthalmos , mild stare NECK: supple, no palpable lymphadenopathy THYROID: unable to palpable thyroid , not tender CHEST: fair air entry, bilateral, CVS: S1,S2 , ABDOMEN: bowel sound present, benign, obese, no wide purple striae , no bruises EXTREMITIES: bilateral hyper pigmented skin with edema, clubbing or cyanosis, no palpable hand tremors Skin : acanthosis nigricans lab: T4 7.3 T3 1.00 11/25 Ft4 2.01, wbc 10.9 11/16 FT4 2.59 , tsh <0.02 , T4 8.88 , wbc 9 , LFT wnl thyroid antibodies (-) tsh < 0.02 ,ft4 2.31 , t4 12.1 , a1c 14 , wbc 10.4 Assessment hypoglycemia , asymtomatic ,resolved uncontrolled IDDM s/p steroids induced hyperglycemia , last dose yesterday 4/5 hyperthyroidisim with afib , on cardiazem & lopressor pneumonia /l cellutitis a fib bleeding /fever /sepsis obesity Plan - lantus still on hold continue humalin R low dose coverage q6h on tapazole 10 mg po tid will monitor Status: Chronic (2) Hyperthyroidism Status: Chronic (3) Atrial fibrillation with rapid ventricular response Status: Acute (4) Pneumonia Status: Acute
[2016-12-03] MEDS: (Novolin R) Insulin Human Regular 100 units/ml vial SC SCH ×5 (05:40→23:55)
[2016-12-03 06:31] LABS: RBC URINE 22 /hpf (0-3); URINE BACTERIA MANY (<OCC); URINE BILIRUBIN NEGATIVE (NEGATIVE); URINE BLOOD NEGATIVE (NEGATIVE); URINE COLOR Yellow (YELLOW); URINE GLUCOSE (UA) 1+ mg/dL (Normal); URINE KETONE NEGATIVE (NEGATIVE); URINE LEUKOCYTE ESTERASE 1+ Leu/uL (Negative); URINE PROTEIN NEGATIVE (NEGATIVE); URINE UROBILINOGEN NORMAL mg/dL (0.2-1.0); WBC URINE 80 /hpf (0-5)
[2016-12-03 06:34] LABS: HEMATOCRIT 36.4 % (34.0-47.0); MEAN CELL VOLUME 89.4 fL (81.0-99.0); MEAN CORPUSCULAR HEMOGLOBIN 29.6 pg (27.0-31.0); MEAN CORPUSCULAR HGB CONC 33.2 g/dL (33.0-37.0); MEAN PLATELET VOLUME 8.4 fL (7.2-11.7); RED CELL DISTRIBUTION WIDTH 16.8 % (11.5-14.5); WHITE BLOOD COUNT 6.1 K/uL (4.8-10.8)
[2016-12-03 06:45] LABS: CHLORIDE 96 mmol/L (98-107); POTASSIUM 3.4 mmol/L (3.6-5.2); SODIUM 136 mmol/L (132-148)
[2016-12-03 06:48] LABS: BLOOD UREA NITROGEN 35 mg/dL (7-17); CALCIUM 8.1 mg/dl (8.6-10.4); CARBON DIOXIDE 36 mmol/L (22-30); GFR AFRICAN-AMERICAN > 60; GLUCOSE,RANDOM 139 mg/dL (65-105)
[2016-12-03] MEDS: Ipratropium 0.02% Inhal Soln (0.5 mg/2.5 ml) UD IH SCH ×2 (08:15→20:02)
[2016-12-03] MEDS: Budesonide 0.25 mg/2 ml Inhal Susp UD INH SCH ×2 (08:16→20:01)
[2016-12-03] MEDS: Potassium Chloride 20 mEq/15 ml LIQ UD PO SCH (09:46)
[2016-12-03] MEDS: Enoxaparin 150 mg Syringe SC SCH (09:47)
[2016-12-03] MEDS: Vitamins A & D Oint UD Foilpak TOP SCH ×2 (09:47→17:05)
[2016-12-03] MEDS: Vancomycin 1 gm/NS 200 ml 200 ML IVPB SCH (09:48)
[2016-12-03] MEDS ORDERED: Potassium Chloride 10 mEq 100 ML IVPB SCH (11:15)
[2016-12-03] MEDS ORDERED: Potassium Chloride 10 mEq 100 ML IVPB ONE ×3 (11:16→11:17)
[2016-12-03] MEDS: Potassium Chloride 10 mEq 100 ML IVPB SCH ×4 (12:48→15:59)
--- NOTE | 2016-12-03 18:30 | CP.PCM.PN ---
Subjective - Date & Time of Evaluation Date of Evaluation: 12/03/16 Time of Evaluation: 19:00 - Subjective Subjective: AFEBRILE VS NOTED. awake . NO ACUTE EVENTS OVERNIGHT the patient out of bed on cardiac chair ROS. HEENT : N. Resp : No SOB wheezing, cough Cardio : No CP, PND orthopnea GI : No abd. Pain, n/v DIRECTOR OF SUSTAINABILITY : No headache , focal deficit. Musculoskel : N Ext. : Pedal pulses intact, no edema or calf pain Derm : N Psych : N. PE. Pt. is drowsy and awake in no distress. V.S As noted in the chart Head ,ear nose,throat and eyes : Normal. Neck : Supple with normal carotids. Lungs: bilateral rhonchi Heart : S1 & S2 normal irregular. . No murmur. S4 + Abd : Soft non tender with normal bowel sounds. Neuro : Moves all ext. with no localized deficit. Ext : BILATERAL LOWER EXTREMITY CELLULITIS WITH EDEMA improving. Neg. calf tenderness Derm : No rashes or decubitus ulcer. Radiology/Labs . wbc 6.1 PLATELETS 201 BLOOD CULTURES -VE GROWTH TO DATE VANCO TROUGH 21.6 - 12/03/16. 12/03/16 .CREATININE 0.4/bun 35. lftS NORMAL urine culture 11/30/16 +ve YEAST SP ( ? COLONIZATION VS CONTAMINANT ) PT WITH FOLYS 12/03 REPEAT URINALYSIS HAZY wbc 80, rbcS 22,BACTERIA MANY, YEAST FEW chest x-ray 11/30 bilateral hilar prominence. Left basilar opacity with small left pleural effusion. Elevated right hemidiaphragm.. Objective - Vital Signs/Intake and Output Vital Signs (last 24 hours): Temp Pulse Resp BP Pulse Ox 97.9 F 73 16 117/50 L 94 L 12/03/16 16:00 12/03/16 17:00 12/03/16 17:00 12/03/16 17:00 12/03/16 17:00 Intake and Output: 12/03/16 12/03/16 06:59 18:59 Intake Total 665 1055 Output Total 300 Balance 365 1055 - Medications Medications: Current Medications Acetaminophen (Tylenol 650mg/20.3ml Solution Ud) 650 mg GT Q6 PRN PRN Reason: Fever >100.4 F Last Admin: 11/16/16 08:59 Dose: 650 mg Budesonide (Pulmicort Respules) 0.25 mg INH RQ12 [facility] Last Admin: 12/03/16 08:16 Dose: 0.25 mg Diltiazem HCl (Cardizem) 60 mg PO Q6 [facility] Last Admin: 12/03/16 17:05 Dose: 60 mg Furosemide (Lasix) 40 mg IVP DAILY [facility] Last Admin: 12/03/16 09:44 Dose: 40 mg Vancomycin/Sodium Chloride (Vancocin) 200 mls @ 166.6 mls/hr IVPB Q12H [facility] Stop: 12/03/16 22:00 Last Admin: 12/03/16 09:48 Dose: 166.6 mls/hr Tigecycline 50 mg/ Sodium (Chloride) 100 mls @ 100 mls/hr IV Q12H [facility] Last Admin: 12/03/16 09:48 Dose: 100 mls/hr Insulin Glargine (Lantus) 13 unit SC HS [facility] Last Admin: 11/25/16 21:11 Dose: 13 u Insulin Human Regular (Novolin R) 0 unit SC Q6 [facility] PRN Reason: Protocol Last Admin: 12/03/16 17:46 Dose: Not Given Ipratropium [place] (Atrovent) 0.5 mg IH RQ12 [facility] Last Admin: 12/03/16 08:15 Dose: 0.5 mg Methimazole (Tapazole) 10 mg PO TID [facility] Last Admin: 12/03/16 17:05 Dose: 10 mg Pantoprazole Sodium (Protonix Inj) 40 mg IVP DAILY [facility] Last Admin: 12/03/16 09:46 Dose: 40 mg Potassium Chloride (Potassium Chloride Oral Soln) 20 meq PO DAILY [facility] Last Admin: 12/03/16 09:46 Dose: 20 meq Vitamin A (Vitamin A & D Oint Ud Foilpak) 1 ea TOP BID [facility] Last Admin: 12/03/16 17:05 Dose: 1 ea - Labs Labs: 12/03/16 06:21 12/03/16 06:21 PT 12.0 SECONDS (9.7-12.2) 11/13/16 04:57 INR 1.1 11/13/16 04:57 APTT 38 SECONDS (21-34) H D 11/13/16 04:57 Assessment and Plan (1) Respiratory failure with hypoxia Status: Acute (2) Pneumonia Status: Acute (3) Lower extremity cellulitis Status: Acute (4) Lymphedema of both lower extremities Status: Acute (5) Diabetes mellitus, insulin dependent (IDDM), uncontrolled Status: Chronic (6) Hyperthyroidism Status: Chronic (7) Atrial fibrillation with rapid ventricular response Status: Acute (8) Obesity (BMI 30-39.9) Status: Acute (9) Candiduria Status: Acute - Assessment and Plan (Free Text) Plan: PLAN; DECREASE iv VANCOMYCIN 750 EVERY 12 HOURLY. CONTINUE iv TYGACIL 50 MG iv EVERY 12 HOURLY.11/30/16 FOLLOW-UP URINE CULTURES TO ADJUST THERAPY CONTINUE LOCAL LOWER EXTREMITY CARE AND DIURESIS. F/U CXR
[2016-12-03] MEDS ORDERED: Vancomycin 1 gm/NS 200 ml 200 ML IVPB SCH (22:00)
--- NOTE | 2016-12-04 00:03 | CP.PCM.PN ---
Subjective - Date & Time of Evaluation Date of Evaluation: 12/03/16 Time of Evaluation: 09:26 - Subjective Subjective: Pt seen and examined, is more alert, continue Pt and rehab, denies any acute complains Objective - Vital Signs/Intake and Output Vital Signs (last 24 hours): Temp Pulse Resp BP Pulse Ox 98.7 F 111 H 16 120/57 L 94 L 12/03/16 21:00 12/03/16 21:00 12/03/16 21:00 12/03/16 21:00 12/03/16 21:00 Intake and Output: 12/03/16 12/04/16 18:59 06:59 Intake Total 1055 5 Output Total 1500 Balance 1055 -1495 - Medications Medications: Current Medications Acetaminophen (Tylenol 650mg/20.3ml Solution Ud) 650 mg GT Q6 PRN PRN Reason: Fever >100.4 F Last Admin: 11/16/16 08:59 Dose: 650 mg Budesonide (Pulmicort Respules) 0.25 mg INH RQ12 [facility] Last Admin: 12/03/16 20:01 Dose: 0.25 mg Diltiazem HCl (Cardizem) 60 mg PO Q6 [facility] Last Admin: 12/03/16 17:05 Dose: 60 mg Furosemide (Lasix) 40 mg IVP DAILY [facility] Last Admin: 12/03/16 09:44 Dose: 40 mg Tigecycline 50 mg/ Sodium (Chloride) 100 mls @ 100 mls/hr IV Q12H [facility] Last Admin: 12/03/16 21:43 Dose: 100 mls/hr Vancomycin HCl 750 mg/ Sodium (Chloride) 250 mls @ 166.6 mls/hr IVPB Q12H [facility] Last Admin: 12/03/16 22:37 Dose: 166.6 mls/hr Insulin Glargine (Lantus) 13 unit SC HS [facility] Last Admin: 11/25/16 21:11 Dose: 13 u Insulin Human Regular (Novolin R) 0 unit SC Q6 [facility] PRN Reason: Protocol Last Admin: 12/03/16 23:55 Dose: Not Given Ipratropium [place] (Atrovent) 0.5 mg IH RQ12 [facility] Last Admin: 12/03/16 20:02 Dose: 0.5 mg Methimazole (Tapazole) 10 mg PO TID [facility] Last Admin: 12/03/16 17:05 Dose: 10 mg Pantoprazole Sodium (Protonix Inj) 40 mg IVP DAILY [facility] Last Admin: 12/03/16 09:46 Dose: 40 mg Potassium Chloride (Potassium Chloride Oral Soln) 20 meq PO DAILY [facility] Last Admin: 12/03/16 09:46 Dose: 20 meq Vitamin A (Vitamin A & D Oint Ud Foilpak) 1 ea TOP BID [facility] Last Admin: 12/03/16 17:05 Dose: 1 ea - Labs Labs: 12/03/16 06:21 12/03/16 06:21 PT 12.0 SECONDS (9.7-12.2) 11/13/16 04:57 INR 1.1 11/13/16 04:57 APTT 38 SECONDS (21-34) H D 11/13/16 04:57 - Constitutional Appears: No Acute Distress - Head Exam Head Exam: ATRAUMATIC, NORMAL INSPECTION, NORMOCEPHALIC - Eye Exam Eye Exam: EOMI, Normal appearance, PERRL Pupil Exam: NORMAL ACCOMODATION, PERRL - Respiratory Exam Respiratory Exam: Decreased Breath Sounds, Rales, Rhonchi - Cardiovascular Exam Cardiovascular Exam: REGULAR RHYTHM, +S1, +S2. absent: Murmur - GI/Abdominal Exam GI & Abdominal Exam: Soft, Normal Bowel Sounds. absent: Tenderness - Rectal Exam Rectal Exam: Deferred Assessment and Plan (1) Diabetes Status: Chronic (2) HTN (hypertension) Status: Chronic (3) Bilateral lower leg cellulitis Status: Deleted (4) Atrial fibrillation with rapid ventricular response Status: Acute (5) CHF (congestive heart failure) Status: Acute (6) Pleural effusion Status: Acute
[2016-12-04] MEDS ORDERED: Labetalol 25mg/5ml Syringe IVP STA (04:09)
[2016-12-04] MEDS: (Novolin R) Insulin Human Regular 100 units/ml vial SC SCH ×3 (06:17→17:58)
[2016-12-04] MEDS: Ipratropium 0.02% Inhal Soln (0.5 mg/2.5 ml) UD IH SCH ×2 (07:52→19:58)
[2016-12-04] MEDS: Budesonide 0.25 mg/2 ml Inhal Susp UD INH SCH ×2 (07:52→19:58)
[2016-12-04] MEDS: Potassium Chloride 20 mEq/15 ml LIQ UD PO SCH (09:09)
[2016-12-04] MEDS: Vitamins A & D Oint UD Foilpak TOP SCH ×2 (09:09→17:18)
[2016-12-05] MEDS: (Novolin R) Insulin Human Regular 100 units/ml vial SC SCH ×4 (00:21→18:59)
--- NOTE | 2016-12-05 00:32 | CP.PCM.PN ---
Subjective - Date & Time of Evaluation Date of Evaluation: 12/04/16 Time of Evaluation: 09:28 - Subjective Subjective: Pt seen and examined, is more alert, continue Pt and rehab, denies any acute complains Objective - Vital Signs/Intake and Output Vital Signs (last 24 hours): Temp Pulse Resp BP Pulse Ox 99.5 F 97 H 21 112/51 L 95 12/04/16 20:00 12/04/16 20:00 12/04/16 20:00 12/04/16 20:00 12/04/16 20:00 Intake and Output: 12/04/16 12/05/16 18:59 06:59 Intake Total 810 Output Total 1560 Balance -750 - Medications Medications: Current Medications Acetaminophen (Tylenol 650mg/20.3ml Solution Ud) 650 mg GT Q6 PRN PRN Reason: Fever >100.4 F Last Admin: 11/16/16 08:59 Dose: 650 mg Budesonide (Pulmicort Respules) 0.25 mg INH RQ12 [facility] Last Admin: 12/04/16 19:58 Dose: 0.25 mg Diltiazem HCl (Cardizem) 60 mg PO Q6 [facility] Last Admin: 12/05/16 00:21 Dose: 60 mg Furosemide (Lasix) 40 mg IVP DAILY [facility] Last Admin: 12/04/16 09:07 Dose: 40 mg Tigecycline 50 mg/ Sodium (Chloride) 100 mls @ 100 mls/hr IV Q12H [facility] Last Admin: 12/04/16 21:57 Dose: 100 mls/hr Vancomycin HCl 750 mg/ Sodium (Chloride) 250 mls @ 166.6 mls/hr IVPB Q12H [facility] Last Admin: 12/04/16 21:57 Dose: 166.6 mls/hr Insulin Glargine (Lantus) 13 unit SC HS [facility] Last Admin: 11/25/16 21:11 Dose: 13 u Insulin Human Regular (Novolin R) 0 unit SC Q6 [facility] PRN Reason: Protocol Last Admin: 12/05/16 00:21 Dose: Not Given Ipratropium [place] (Atrovent) 0.5 mg IH RQ12 [facility] Last Admin: 12/04/16 19:58 Dose: 0.5 mg Methimazole (Tapazole) 10 mg PO TID [facility] Last Admin: 12/04/16 17:18 Dose: 10 mg Pantoprazole Sodium (Protonix Inj) 40 mg IVP DAILY [facility] Last Admin: 12/04/16 09:06 Dose: 40 mg Potassium Chloride (Potassium Chloride Oral Soln) 20 meq PO DAILY [facility] Last Admin: 12/04/16 09:09 Dose: 20 meq Vitamin A (Vitamin A & D Oint Ud Foilpak) 1 ea TOP BID [facility] Last Admin: 12/04/16 17:18 Dose: 1 ea - Labs Labs: 12/03/16 06:21 12/03/16 06:21 PT 12.0 SECONDS (9.7-12.2) 11/13/16 04:57 INR 1.1 11/13/16 04:57 APTT 38 SECONDS (21-34) H D 11/13/16 04:57 - Constitutional Appears: No Acute Distress, Chronically Ill - Head Exam Head Exam: ATRAUMATIC, NORMAL INSPECTION, NORMOCEPHALIC - Eye Exam Eye Exam: EOMI, Normal appearance, PERRL Pupil Exam: NORMAL ACCOMODATION, PERRL - Respiratory Exam Respiratory Exam: Clear to Ausculation Bilateral, NORMAL BREATHING PATTERN - Cardiovascular Exam Cardiovascular Exam: REGULAR RHYTHM, +S1, +S2. absent: Murmur - GI/Abdominal Exam GI & Abdominal Exam: Soft, Normal Bowel Sounds. absent: Tenderness Assessment and Plan (1) Diabetes Status: Chronic (2) HTN (hypertension) Status: Chronic (3) Bilateral lower leg cellulitis Status: Deleted (4) Atrial fibrillation with rapid ventricular response Status: Acute (5) CHF (congestive heart failure) Status: Acute (6) Pleural effusion Status: Acute
[2016-12-05] MEDS: Budesonide 0.25 mg/2 ml Inhal Susp UD INH SCH ×2 (07:51→19:02)
[2016-12-05] MEDS: Ipratropium 0.02% Inhal Soln (0.5 mg/2.5 ml) UD IH SCH ×2 (07:51→19:02)
[2016-12-05] MEDS: Acetaminophen 650mg/20.3ml solution UD GT PRN (12:32)
[2016-12-05] MEDS: Potassium Chloride 20 mEq/15 ml LIQ UD PO SCH (12:32)
[2016-12-05] MEDS: Vitamins A & D Oint UD Foilpak TOP SCH ×2 (12:33→18:51)
[2016-12-05] MEDS ORDERED: Metoprolol 1 mg/ml Inj IVP ONE (13:29)
--- NOTE | 2016-12-05 14:18 | CP.PCM.PN ---
Subjective - Date & Time of Evaluation Date of Evaluation: 12/05/16 Time of Evaluation: 14:18 - Subjective Subjective: AFEBRILE awake ,weak NO ACUTE EVENTS OVERNIGHT ROS. HEENT : N. Resp : No SOB wheezing, cough Cardio : No CP, PND orthopnea GI : No abd. 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 Musculoskel : N Ext. : Pedal pulses intact, no edema or calf pain Derm : N Psych : N. PE. Pt. is drowsy and awake in no distress. V.S As noted in the chart Head ,ear nose,throat and eyes : Normal. Neck : Supple with normal carotids. Lungs: bilateral rhonchi Heart : S1 & S2 normal irregular. . No murmur. S4 + Abd : Soft non tender with normal bowel sounds. Neuro : Moves all ext. with no localized deficit. Ext : BILATERAL LOWER EXTREMITY CELLULITIS WITH EDEMA improving. Neg. calf tenderness Derm : No rashes or decubitus ulcer. Radiology/Labs . wbc 6.1 PLATELETS 201 CREAT 0.4/BUN35 BLOOD CULTURES -VE GROWTH TO DATE VANCO TROUGH 21.6 - 12/03/16. 12/03/16 .CREATININE 0.4/bun 35. lftS NORMAL urine culture 11/30/16 +ve YEAST SP ( ? COLONIZATION VS CONTAMINANT ) PT WITH FOLYS 12/03 repeat URINE CULTURE +VE YEAST chest x-ray 11/30 bilateral hilar prominence. Left basilar opacity with small left pleural effusion. Elevated right hemidiaphragm.. CXR 12/05/16 MODERATE BILATERAL PLEURAL EFFUSIONS, PROMINENT BY BASILAR AIRSPACE OPACITIES vENOUS CONGESTION, UPPER LOBE GRANULOMATOUS CHANGES. Objective - Vital Signs/Intake and Output Vital Signs (last 24 hours): Temp Pulse Resp BP Pulse Ox 98.9 F 99 H 16 149/66 96 12/05/16 04:00 12/05/16 04:00 12/05/16 04:00 12/05/16 12:32 12/05/16 04:00 Intake and Output: 12/05/16 12/05/16 06:59 18:59 Intake Total 450 Output Total 400 Balance 50 - Medications Medications: Current Medications Acetaminophen (Tylenol 650mg/20.3ml Solution Ud) 650 mg GT Q6 PRN PRN Reason: Fever >100.4 F Last Admin: 12/05/16 12:32 Dose: 650 mg Budesonide (Pulmicort Respules) 0.25 mg INH RQ12 [facility] Last Admin: 12/05/16 07:51 Dose: 0.25 mg Diltiazem HCl (Cardizem) 60 mg PO Q6 [facility] Last Admin: 12/05/16 12:33 Dose: 60 mg Furosemide (Lasix) 40 mg IVP DAILY [facility] Last Admin: 12/05/16 12:32 Dose: 40 mg Tigecycline 50 mg/ Sodium (Chloride) 100 mls @ 100 mls/hr IV Q12H [facility] Last Admin: 12/05/16 12:38 Dose: 100 mls/hr Vancomycin HCl 750 mg/ Sodium (Chloride) 250 mls @ 166.6 mls/hr IVPB Q12H [facility] Last Admin: 12/05/16 12:38 Dose: 166.6 mls/hr Insulin Glargine (Lantus) 13 unit SC HS [facility] Last Admin: 11/25/16 21:11 Dose: 13 u Insulin Human Regular (Novolin R) 0 unit SC Q6 [facility] PRN Reason: Protocol Last Admin: 12/05/16 06:33 Dose: 2 unit Ipratropium [place] (Atrovent) 0.5 mg IH RQ12 [facility] Last Admin: 12/05/16 07:51 Dose: 0.5 mg Methimazole (Tapazole) 10 mg PO TID [facility] Last Admin: 12/05/16 12:38 Dose: 10 mg Pantoprazole Sodium (Protonix Inj) 40 mg IVP DAILY [facility] Last Admin: 12/05/16 12:33 Dose: 40 mg Potassium Chloride (Potassium Chloride Oral Soln) 20 meq PO DAILY [facility] Last Admin: 12/05/16 12:32 Dose: 20 meq Vitamin A (Vitamin A & D Oint Ud Foilpak) 1 ea TOP BID [facility] Last Admin: 12/05/16 12:33 Dose: 1 ea - Labs Labs: 12/03/16 06:21 12/03/16 06:21 PT 12.0 SECONDS (9.7-12.2) 11/13/16 04:57 INR 1.1 11/13/16 04:57 APTT 38 SECONDS (21-34) H D 11/13/16 04:57 Assessment and Plan (1) Respiratory failure with hypoxia Status: Acute (2) Pneumonia Status: Acute (3) Lower extremity cellulitis Status: Acute (4) Lymphedema of both lower extremities Status: Acute (5) Diabetes mellitus, insulin dependent (IDDM), uncontrolled Status: Chronic (6) Hyperthyroidism Status: Chronic (7) Atrial fibrillation with rapid ventricular response Status: Acute (8) Obesity (BMI 30-39.9) Status: Acute (9) Candiduria Status: Acute - Assessment and Plan (Free Text) Plan: DECREASE iv VANCOMYCIN 750 EVERY 12 HOURLY. CONTINUE iv TYGACIL 50 MG iv EVERY 12 HOURLY.11/30/16 ADD iv DIFLUCAN 200 MG ONCE A DAY DAILY.12/05/16 REPEAT SPUTUM CULTURE. PROBMP IN AM CONTINUE LOCAL LOWER EXTREMITY CARE AND DIURESIS. PULMONARY TOILET. DIURESIS PER PMD.
--- NOTE | 2016-12-05 15:21 | RAD ---
HISTORY: pneumonia COMPARISON: 11/30/2016 FINDINGS: LUNGS: Moderate bilateral pleural effusions with prominent bibasilar airspace opacities. Venous congestion. Upper lobe granulomatous changes. PLEURA: As above. CARDIOVASCULAR: Cardiomegaly. OSSEOUS STRUCTURES: Degenerative changes in the spine and shoulders. VISUALIZED UPPER ABDOMEN: Normal. OTHER FINDINGS: None. IMPRESSION: Moderate bilateral pleural effusions with prominent bibasilar airspace opacities. Venous congestion. Upper lobe granulomatous changes.
[2016-12-05] MEDS: Fluconazole IV 200mg/100 ml NS 100 ML IVPB SCH (15:49)
--- NOTE | 2016-12-05 20:59 | CP.PCM.PN ---
Subjective - Date & Time of Evaluation Date of Evaluation: 12/05/16 Time of Evaluation: 20:52 - Subjective Subjective: diabetes & hyperthyroidism Objective - Vital Signs/Intake and Output Vital Signs (last 24 hours): Temp Pulse Resp BP Pulse Ox 98 F 105 H 19 129/68 97 12/05/16 16:00 12/05/16 16:00 12/05/16 16:00 12/05/16 16:00 12/05/16 16:00 Intake and Output: 12/05/16 12/06/16 18:59 06:59 Intake Total 350 Output Total 1150 Balance -800 - Medications Medications: Current Medications Acetaminophen (Tylenol 650mg/20.3ml Solution Ud) 650 mg GT Q6 PRN PRN Reason: Fever >100.4 F Last Admin: 12/05/16 12:32 Dose: 650 mg Budesonide (Pulmicort Respules) 0.25 mg INH RQ12 [facility] Last Admin: 12/05/16 19:02 Dose: 0.25 mg Diltiazem HCl (Cardizem) 60 mg PO Q6 [facility] Last Admin: 12/05/16 18:50 Dose: 60 mg Furosemide (Lasix) 40 mg IVP DAILY [facility] Last Admin: 12/05/16 12:32 Dose: 40 mg Tigecycline 50 mg/ Sodium (Chloride) 100 mls @ 100 mls/hr IV Q12H [facility] Last Admin: 12/05/16 12:38 Dose: 100 mls/hr Vancomycin HCl 750 mg/ Sodium (Chloride) 250 mls @ 166.6 mls/hr IVPB Q12H [facility] Last Admin: 12/05/16 12:38 Dose: 166.6 mls/hr Fluconazole (Diflucan Iv 200 Mg/100 Ml Ns) 100 mls @ 100 mls/hr IVPB DAILY [facility] Last Admin: 12/05/16 15:49 Dose: 100 mls/hr Insulin Human Regular (Novolin R) 0 unit SC TID [facility] PRN Reason: Protocol Ipratropium [place] (Atrovent) 0.5 mg IH RQ12 [facility] Last Admin: 12/05/16 19:02 Dose: 0.5 mg Methimazole (Tapazole) 10 mg PO TID [facility] Last Admin: 12/05/16 18:50 Dose: 10 mg Pantoprazole Sodium (Protonix Inj) 40 mg IVP DAILY [facility] Last Admin: 04/17/17 12:33 Dose: 40 mg Potassium Chloride (Potassium Chloride Oral Soln) 20 meq PO DAILY [facility] Last Admin: 12/05/16 12:32 Dose: 20 meq Vitamin A (Vitamin A & D Oint Ud Foilpak) 1 ea TOP BID [facility] Last Admin: 12/05/16 18:51 Dose: 1 ea - Labs Labs: 12/03/16 06:21 12/03/16 06:21 PT 12.0 SECONDS (9.7-12.2) 11/13/16 04:57 INR 1.1 11/13/16 04:57 APTT 38 SECONDS (21-34) H D 11/13/16 04:57 Assessment and Plan (1) Diabetes mellitus, insulin dependent (IDDM), uncontrolled Assessment & Plan: Endocrine consult f/u reason for consult: uncontrolled diabetes & hyperthyroidism source : chrart review , pt awake , alert with OGT tube for bleeding unable to give history & as per chart review poor historian is 61 y/o admitted for a fib with rapid venttirucular resonse & DKA / bilateral lower extremities cellulites ,pt was intubated & also started on insulin drip glucose on admission 1023 . also was started on steroid 40 mg po bid , endocrine was contacted yesterday 11/12 for uncontrolled IDDM glucose in 300- 400 & also pt with hyperthyroidism on tapazole , blood glucose log :today 107- 150 start to tolerate oral feeding , off NG feeding , not on D5 , however eat 25-30 % , no hypoglycemia Allergy NKDA Past medical history : HTN , pedal edema Past surgical history : not documented Psychiatry history : (+) psychiatry disorder Social history : (+)smoking , ETOH use , illicit drug use Family history : unknown ROS: Constitutional: no fever ,tiredness/weakness .HEENT: no earache, change in voice .Respiratory: no cough, sob . CVS :no chest pain, no palpitations . Abdomen : no abdominal pain, no nausea /vomiting , no change bowel movement . MOBILE ARCHITECT : no light-headedness, dizziness. Extremities : (+) edema , no tremors . Skin: no itching, no rash Physical exam Well developed , awake & alert VSS , aferbril HEENT: norm cephalic, atrumatic , no lid lag , no exophthalmos , mild stare NECK: supple, no palpable lymphadenopathy THYROID: unable to palpable thyroid , not tender CHEST: fair air entry, bilateral, CVS: S1,S2 , ABDOMEN: bowel sound present, benign, obese, no wide purple striae , no bruises EXTREMITIES: bilateral hyper pigmented skin with edema, clubbing or cyanosis, no palpable hand tremors Skin : acanthosis nigricans lab: T4 7.3 T3 1.00 11/25 Ft4 2.01, wbc 10.9 11/16 FT4 2.59 , tsh <0.02 , T4 8.88 , wbc 9 , LFT wnl thyroid antibodies (-) tsh < 0.02 ,ft4 2.31 , t4 12.1 , a1c 14 , wbc 10.4 Assessment hypoglycemia , asymtomatic ,resolved uncontrolled IDDM s/p steroids induced hyperglycemia , last dose yesterday 11/23 hyperthyroidisim with afib , on cardiazem & lopressor pneumonia /cellutitis a fib obesity Plan - stop lantus - change humalin R low dose coverage tid with meals starting above 200 on tapazole 10 mg po tid will monitor Status: Chronic (2) Hyperthyroidism Status: Chronic (3) Atrial fibrillation with rapid ventricular response Status: Acute (4) Pneumonia Status: Acute
--- NOTE | 2016-12-06 01:07 | CP.PCM.PN ---
<Matt Pate - Last Filed: 12/06/16 01:04> Subjective - Date & Time of Evaluation Date of Evaluation: 12/05/16 - Subjective Subjective: Pt seen and examined, weak and lethargic, moans and open eyes, she is in rapid A.fib denies any chest pain, seen by Id on antibiotics is more alert, continue Pt and rehab, denies any acute complains Objective - Vital Signs/Intake and Output Vital Signs (last 24 hours): Temp Pulse Resp BP Pulse Ox 98 F 105 H 19 129/68 97 12/05/16 16:00 12/05/16 16:00 12/05/16 16:00 12/05/16 16:00 12/05/16 16:00 Intake and Output: 12/05/16 12/06/16 18:59 06:59 Intake Total 350 Output Total 1150 Balance -800 - Medications Medications: Current Medications Acetaminophen (Tylenol 650mg/20.3ml Solution Ud) 650 mg GT Q6 PRN PRN Reason: Fever >100.4 F Last Admin: 12/05/16 12:32 Dose: 650 mg Budesonide (Pulmicort Respules) 0.25 mg INH RQ12 [facility] Last Admin: 12/05/16 19:02 Dose: 0.25 mg Diltiazem HCl (Cardizem) 60 mg PO Q6 [facility] Last Admin: 12/05/16 18:50 Dose: 60 mg Furosemide (Lasix) 40 mg IVP DAILY [facility] Last Admin: 12/05/16 12:32 Dose: 40 mg Tigecycline 50 mg/ Sodium (Chloride) 100 mls @ 100 mls/hr IV Q12H [facility] Last Admin: 12/05/16 22:30 Dose: 100 mls/hr Vancomycin HCl 750 mg/ Sodium (Chloride) 250 mls @ 166.6 mls/hr IVPB Q12H [facility] Last Admin: 12/05/16 22:32 Dose: 166.6 mls/hr Fluconazole (Diflucan Iv 200 Mg/100 Ml Ns) 100 mls @ 100 mls/hr IVPB DAILY [facility] Last Admin: 12/05/16 15:49 Dose: 100 mls/hr Insulin Human Regular (Novolin R) 0 unit SC TID [facility] PRN Reason: Protocol Ipratropium [place] (Atrovent) 0.5 mg IH RQ12 [facility] Last Admin: 12/05/16 19:02 Dose: 0.5 mg Methimazole (Tapazole) 10 mg PO TID [facility] Last Admin: 12/05/16 18:50 Dose: 10 mg Pantoprazole Sodium (Protonix Inj) 40 mg IVP DAILY [facility] Last Admin: 12/05/16 12:33 Dose: 40 mg Potassium Chloride (Potassium Chloride Oral Soln) 20 meq PO DAILY [facility] Last Admin: 12/05/16 12:32 Dose: 20 meq - Labs Labs: 12/03/16 06:21 12/03/16 06:21 PT 12.0 SECONDS (9.7-12.2) 11/13/16 04:57 INR 1.1 11/13/16 04:57 APTT 38 SECONDS (21-34) H D 11/13/16 04:57 - Constitutional Appears: No Acute Distress, Chronically Ill - Head Exam Head Exam: ATRAUMATIC, NORMAL INSPECTION, NORMOCEPHALIC - Eye Exam Eye Exam: EOMI, Normal appearance, PERRL Pupil Exam: NORMAL ACCOMODATION, PERRL - Respiratory Exam Respiratory Exam: Decreased Breath Sounds, Rales, Rhonchi - Cardiovascular Exam Cardiovascular Exam: Tachycardia, Irregular Rhythm, +S1, +S2 - GI/Abdominal Exam GI & Abdominal Exam: Soft, Normal Bowel Sounds. absent: Tenderness Assessment and Plan (1) Diabetes Status: h (2) HTN (hypertension) Status: h (3) Bilateral lower leg cellulitis Status: e (4) Atrial fibrillation with rapid ventricular response Assessment & Plan: cardizem Status: c (5) CHF (congestive heart failure) Status: c (6) Pleural effusion Status: c <Guerrero Aaron - Last Filed: 12/15/16 01:57> Subjective - Date & Time of Evaluation Time of Evaluation: 16:00 Objective - Vital Signs/Intake and Output Vital Signs (last 24 hours): Temp Pulse Resp BP Pulse Ox 98 F 105 H 19 129/68 97 12/05/16 16:00 12/05/16 16:00 12/05/16 16:00 12/05/16 16:00 12/05/16 16:00 Intake and Output: 12/05/16 12/06/16 18:59 06:59 Intake Total 350 Output Total 1150 Balance -800 - Medications Medications: Current Medications Acetaminophen (Tylenol 650mg/20.3ml Solution Ud) 650 mg GT Q6 PRN PRN Reason: Fever >100.4 F Last Admin: 12/05/16 12:32 Dose: 650 mg Budesonide (Pulmicort Respules) 0.25 mg INH RQ12 [facility] Last Admin: 12/05/16 19:02 Dose: 0.25 mg Diltiazem HCl (Cardizem) 60 mg PO Q6 [facility] Last Admin: 12/06/16 00:00 Dose: 60 mg Furosemide (Lasix) 40 mg IVP DAILY [facility] Last Admin: 12/05/16 12:32 Dose: 40 mg Tigecycline 50 mg/ Sodium (Chloride) 100 mls @ 100 mls/hr IV Q12H [facility] Last Admin: 12/05/16 22:30 Dose: 100 mls/hr Vancomycin HCl 750 mg/ Sodium (Chloride) 250 mls @ 166.6 mls/hr IVPB Q12H [facility] Last Admin: 12/05/16 22:32 Dose: 166.6 mls/hr Fluconazole (Diflucan Iv 200 Mg/100 Ml Ns) 100 mls @ 100 mls/hr IVPB DAILY [facility] Last Admin: 12/05/16 15:49 Dose: 100 mls/hr Insulin Human Regular (Novolin R) 0 unit SC TID [facility] PRN Reason: Protocol Ipratropium [place] (Atrovent) 0.5 mg IH RQ12 [facility] Last Admin: 12/05/16 19:02 Dose: 0.5 mg Methimazole (Tapazole) 10 mg PO TID [facility] Last Admin: 12/05/16 18:50 Dose: 10 mg Pantoprazole Sodium (Protonix Inj) 40 mg IVP DAILY [facility] Last Admin: 12/05/16 12:33 Dose: 40 mg Potassium Chloride (Potassium Chloride Oral Soln) 20 meq PO DAILY [facility] Last Admin: 12/05/16 12:32 Dose: 20 meq - Labs Labs: 12/03/16 06:21 12/03/16 06:21 PT 12.0 SECONDS (9.7-12.2) 11/13/16 04:57 INR 1.1 11/13/16 04:57 APTT 38 SECONDS (21-34) H D 11/13/16 04:57 Assessment and Plan (1) Lower extremity cellulitis Status: Acute (2) Obesity (BMI 30-39.9) Status: Acute (3) Hyperthyroidism Status: Chronic (4) Lymphedema of both lower extremities Status: Acute (5) Respiratory failure with hypoxia Status: Acute (6) Atrial fibrillation with rapid ventricular response Status: Acute (7) Diabetes mellitus, insulin dependent (IDDM), uncontrolled Status: Chronic (8) Pneumonia Status: Acute (9) Candiduria Status: Acute
[2016-12-06 06:46] LABS: CHLORIDE 100 mmol/L (98-107); POTASSIUM 2.8 mmol/L (3.6-5.2); SODIUM 143 mmol/L (132-148)
[2016-12-06 06:48] LABS: GFR AFRICAN-AMERICAN > 60
[2016-12-06 06:49] LABS: BLOOD UREA NITROGEN 35 mg/dL (7-17); CALCIUM 8.1 mg/dl (8.6-10.4); CARBON DIOXIDE 36 mmol/L (22-30); GLUCOSE,RANDOM 162 mg/dL (65-105)
[2016-12-06] MEDS: Budesonide 0.25 mg/2 ml Inhal Susp UD INH SCH ×2 (07:46→19:36)
[2016-12-06] MEDS: Ipratropium 0.02% Inhal Soln (0.5 mg/2.5 ml) UD IH SCH ×2 (07:46→19:36)
[2016-12-06] MEDS: Potassium Chloride 20 mEq/15 ml LIQ UD PO SCH (09:05)
[2016-12-06] MEDS: Fluconazole IV 200mg/100 ml NS 100 ML IVPB SCH (09:06)
[2016-12-06] MEDS: Potassium Chloride 20 mEq 100 ML IVPB SCH ×2 (12:47→17:04)
[2016-12-06] MEDS: (Novolin R) Insulin Human Regular 100 units/ml vial SC SCH ×3 (12:49→19:03)
--- NOTE | 2016-12-06 13:22 | CP.PCM.PN ---
Subjective - Date & Time of Evaluation Date of Evaluation: 12/06/16 Time of Evaluation: 13:22 - Subjective Subjective: Subjective: AFEBRILE awake ,weak NO ACUTE EVENTS OVERNIGHT POOR APPETITE. TACHYCARDIC PROBMP -1530 CREAT 0.5/BUN 35 ROS. HEENT : N. Resp : No SOB wheezing, cough Cardio : No CP, PND orthopnea GI : No abd. Pain, n/v SHOE CEMENTER : No headache , focal deficit. Musculoskel : N Ext. : Pedal pulses intact, no edema or calf pain Derm : N Psych : N. PE. Pt. is drowsy and awake in no distress. V.S As noted in the chart Head ,ear nose,throat and eyes : Normal. Neck : Supple with normal carotids. Lungs: bilateral rhonchi Heart : S1 & S2 normal irregular. . No murmur. S4 + Abd : Soft non tender with normal bowel sounds. Neuro : Moves all ext. with no localized deficit. Ext : BILATERAL LOWER EXTREMITY CELLULITIS WITH EDEMA improving. Neg. calf tenderness Derm : No rashes or decubitus ulcer. Radiology/Labs . wbc 6.1 PLATELETS 201 CREAT 0.4/BUN35 BLOOD CULTURES -VE GROWTH TO DATE VANCO TROUGH 21.6 - 12/03/16. 12/03/16 .CREATININE 0.4/bun 35. lftS NORMAL urine culture 11/30/16 +ve YEAST SP ( ? COLONIZATION VS CONTAMINANT ) PT WITH FOLYS 12/03 repeat URINE CULTURE +VE YEAST chest x-ray 11/30 bilateral hilar prominence. Left basilar opacity with small left pleural effusion. Elevated right hemidiaphragm.. CXR 12/05/16 MODERATE BILATERAL PLEURAL EFFUSIONS, PROMINENT BY BASILAR AIRSPACE OPACITIES vENOUS CONGESTION, UPPER LOBE GRANULOMATOUS CHANGES. Objective - Vital Signs/Intake and Output Vital Signs (last 24 hours): Temp Pulse Resp BP Pulse Ox 98.8 F 113 H 23 121/75 93 L 12/06/16 08:00 12/06/16 08:00 12/06/16 08:00 12/06/16 12:46 12/06/16 08:00 Intake and Output: 12/06/16 12/06/16 06:59 18:59 Intake Total 400 Output Total 500 Balance -100 - Medications Medications: Current Medications Acetaminophen (Tylenol 650mg/20.3ml Solution Ud) 650 mg GT Q6 PRN PRN Reason: Fever >100.4 F Last Admin: 12/05/16 12:32 Dose: 650 mg Budesonide (Pulmicort Respules) 0.25 mg INH RQ12 [facility] Last Admin: 12/06/16 07:46 Dose: 0.25 mg Diltiazem HCl (Cardizem) 60 mg PO Q6 [facility] Last Admin: 12/06/16 12:46 Dose: 60 mg Furosemide (Lasix) 40 mg IVP DAILY [facility] Last Admin: 12/06/16 09:05 Dose: 40 mg Tigecycline 50 mg/ Sodium (Chloride) 100 mls @ 100 mls/hr IV Q12H [facility] Last Admin: 12/06/16 12:50 Dose: 100 mls/hr Vancomycin HCl 750 mg/ Sodium (Chloride) 250 mls @ 166.6 mls/hr IVPB Q12H [facility] Last Admin: 12/06/16 09:06 Dose: 166.6 mls/hr Fluconazole (Diflucan Iv 200 Mg/100 Ml Ns) 100 mls @ 100 mls/hr IVPB DAILY [facility] Last Admin: 12/06/16 09:06 Dose: 100 mls/hr Potassium Chloride (Potassium Chloride 20 Meq/100 Ml) 100 mls @ 50 mls/hr IVPB Q2H [facility] Stop: 12/06/16 17:14 Last Admin: 12/06/16 12:47 Dose: 50 mls/hr Insulin Human Regular (Novolin R) 0 unit SC TID [facility] PRN Reason: Protocol Last Admin: 12/06/16 12:49 Dose: Not Given Ipratropium [place] (Atrovent) 0.5 mg IH RQ12 [facility] Last Admin: 12/06/16 07:46 Dose: 0.5 mg Methimazole (Tapazole) 10 mg PO TID [facility] Last Admin: 12/06/16 09:05 Dose: 10 mg Metoprolol Tartrate (Lopressor) 25 mg PO BID [facility] Last Admin: 12/06/16 12:46 Dose: 25 mg Pantoprazole Sodium (Protonix Inj) 40 mg IVP DAILY [facility] Last Admin: 12/06/16 09:04 Dose: 40 mg Potassium Chloride (Potassium Chloride Oral Soln) 20 meq PO DAILY [facility] Last Admin: 12/06/16 09:05 Dose: 20 meq - Labs Labs: 04/15/17 06:21 12/06/16 02:03 PT 12.0 SECONDS (9.7-12.2) 11/13/16 04:57 INR 1.1 11/13/16 04:57 APTT 38 SECONDS (21-34) H D 11/13/16 04:57 Assessment and Plan (1) Respiratory failure with hypoxia Status: Acute (2) Pneumonia Status: Acute (3) Lower extremity cellulitis Status: Acute (4) Lymphedema of both lower extremities Status: Acute (5) Diabetes mellitus, insulin dependent (IDDM), uncontrolled Status: Chronic (6) Hyperthyroidism Status: Chronic (7) Atrial fibrillation with rapid ventricular response Status: Acute (8) Obesity (BMI 30-39.9) Status: Acute (9) Candiduria Status: Acute - Assessment and Plan (Free Text) Plan: ON iv VANCOMYCIN 750 EVERY 12 HOURLY. CONTINUE iv TYGACIL 50 MG iv EVERY 12 HOURLY.11/30/16 ADD iv DIFLUCAN 200 MG ONCE A DAY DAILY.12/05/16 REPEAT SPUTUM CULTURE. CONTINUE LOCAL LOWER EXTREMITY CARE AND DIURESIS. PULMONARY TOILET. DIURESIS PER PMD. .AWAITING FAMILY RESPONSE FOR PEG.
--- NOTE | 2016-12-06 14:32 | CP.PCM.PCO ---
Physician Communication Note - Physician Communication Note Physician Communication Note: Fam meeting nadia at noon with Goddaughter.
--- NOTE | 2016-12-07 01:36 | CP.PCM.PN ---
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 OF PREP MANAGER Objective - Vital Signs/Intake and Output Vital Signs (last 24 hours): Temp Pulse Resp BP Pulse Ox 98.2 F 125 H 19 135/86 94 L 12/06/16 20:00 12/06/16 20:00 12/06/16 20:00 12/06/16 20:00 12/06/16 20:00 - Medications Medications: Current Medications Acetaminophen (Tylenol 650mg/20.3ml Solution Ud) 650 mg GT Q6 PRN PRN Reason: Fever >100.4 F Last Admin: 12/05/16 12:32 Dose: 650 mg Budesonide (Pulmicort Respules) 0.25 mg INH RQ12 [facility] Last Admin: 12/06/16 19:36 Dose: 0.25 mg Diltiazem HCl (Cardizem) 60 mg PO Q6 [facility] Last Admin: 12/06/16 17:02 Dose: Not Given Furosemide (Lasix) 40 mg IVP DAILY [facility] Last Admin: 12/06/16 09:05 Dose: 40 mg Tigecycline 50 mg/ Sodium (Chloride) 100 mls @ 100 mls/hr IV Q12H [facility] Last Admin: 12/06/16 22:44 Dose: 100 mls/hr Vancomycin HCl 750 mg/ Sodium (Chloride) 250 mls @ 166.6 mls/hr IVPB Q12H [facility] Last Admin: 12/06/16 21:45 Dose: 166.6 mls/hr Fluconazole (Diflucan Iv 200 Mg/100 Ml Ns) 100 mls @ 100 mls/hr IVPB DAILY [facility] Last Admin: 12/06/16 09:06 Dose: 100 mls/hr Insulin Human Regular (Novolin R) 0 unit SC TID [facility] PRN Reason: Protocol Last Admin: 12/06/16 19:03 Dose: Not Given Ipratropium [place] (Atrovent) 0.5 mg IH RQ12 [facility] Last Admin: 12/06/16 19:36 Dose: 0.5 mg Methimazole (Tapazole) 10 mg PO TID [facility] Last Admin: 12/06/16 17:03 Dose: Not Given Metoprolol Tartrate (Lopressor) 25 mg PO BID [facility] Last Admin: 12/06/16 17:03 Dose: Not Given Pantoprazole Sodium (Protonix Inj) 40 mg IVP DAILY [facility] Last Admin: 12/06/16 09:04 Dose: 40 mg Potassium Chloride (Potassium Chloride Oral Soln) 20 meq PO DAILY [facility] Last Admin: 12/06/16 09:05 Dose: 20 meq - Labs Labs: 12/03/16 06:21 12/06/16 02:03 PT 12.0 SECONDS (9.7-12.2) 11/13/16 04:57 INR 1.1 11/13/16 04:57 APTT 38 SECONDS (21-34) H D 11/13/16 04:57 - Constitutional Appears: No Acute Distress, Chronically Ill - Head Exam Head Exam: ATRAUMATIC, NORMAL INSPECTION, NORMOCEPHALIC - ENT Exam ENT Exam: Mucous Membranes Moist, Normal Exam - Respiratory Exam Respiratory Exam: Decreased Breath Sounds, Rales, Wheezes - Cardiovascular Exam Cardiovascular Exam: REGULAR RHYTHM, +S1, +S2. absent: Murmur - GI/Abdominal Exam GI & Abdominal Exam: Soft, Hypoactive Bowel Sounds Assessment and Plan (1) Diabetes Status: Chronic (2) HTN (hypertension) Status: Chronic (3) Bilateral lower leg cellulitis Status: Deleted (4) Atrial fibrillation with rapid ventricular response Status: Acute (5) CHF (congestive heart failure) Status: Acute (6) Pleural effusion Status: Acute
[2016-12-07 07:18] LABS: CHLORIDE 104 mmol/L (98-107); POTASSIUM 2.7 mmol/L (3.6-5.2); SODIUM 148 mmol/L (132-148)
[2016-12-07 07:21] LABS: BLOOD UREA NITROGEN 39 mg/dL (7-17); CALCIUM 8.5 mg/dl (8.6-10.4); CARBON DIOXIDE 34 mmol/L (22-30); GFR AFRICAN-AMERICAN > 60; GLUCOSE,RANDOM 179 mg/dL (65-105)
[2016-12-07] MEDS: Ipratropium 0.02% Inhal Soln (0.5 mg/2.5 ml) UD IH SCH (07:22)
[2016-12-07] MEDS: Budesonide 0.25 mg/2 ml Inhal Susp UD INH SCH ×2 (07:22→20:29)
[2016-12-07 08:11] LABS: BASO % 0.5 % (0.0-2.0); EOS % 0.5 % (0.0-4.0); HEMATOCRIT 38.6 % (34.0-47.0); LYMPH # 1.7 K/uL (1.0-4.3); LYMPH % 17.6 % (20.0-40.0); MEAN CELL VOLUME 90.7 fL (81.0-99.0); MEAN CORPUSCULAR HEMOGLOBIN 29.6 pg (27.0-31.0); MEAN CORPUSCULAR HGB CONC 32.6 g/dL (33.0-37.0); MEAN PLATELET VOLUME 8.4 fL (7.2-11.7); MONO # 0.8 K/uL (0.0-0.8); MONO % 8.6 % (0.0-10.0); NRBC % 0.1 % (0.0-2.0); RED CELL DISTRIBUTION WIDTH 17.7 % (11.5-14.5); WHITE BLOOD COUNT 9.6 K/uL (4.8-10.8)
[2016-12-07] MEDS: Fluconazole IV 200mg/100 ml NS 100 ML IVPB SCH (09:26)
[2016-12-07] MEDS: Potassium Chloride 20 mEq/15 ml LIQ UD PO SCH (09:28)
[2016-12-07] MEDS: (Novolin R) Insulin Human Regular 100 units/ml vial SC SCH ×3 (10:59→18:47)
[2016-12-07 12:49] LABS: ABG ALLEN TEST POS; ARTERIAL BLOOD HGB O2 SAT 82.8 % (95.0-98.0); CARBOXYHEMOGLOBIN 2.6 % (0.5-1.5); DRAW SITE RR; HHB 13.5 % (0.0-5.0); METHEMOGLOBIN 1.1 % (0.0-3.0)
[2016-12-07] MEDS ORDERED: Potassium Chloride 20 mEq 100 ML IVPB ONE ×2 (13:00→17:31)
[2016-12-07] MEDS: Potassium Chloride 10 mEq 100 ML IVPB SCH ×2 (13:10→16:09)
--- NOTE | 2016-12-07 13:28 | RAD ---
HISTORY: hypoxia COMPARISON: 12/05/2016 FINDINGS: LUNGS: Prominent bibasilar airspace opacities with small to moderate right and small left pleural effusion. Venous congestion. Bilateral paratracheal prominence may represent prominent vasculature. Right hilar prominence. PLEURA: As above. CARDIOVASCULAR: Cardiomegaly. Calcification at the aortic knob. OSSEOUS STRUCTURES: Degenerative changes in the spine and shoulders. VISUALIZED UPPER ABDOMEN: Normal. OTHER FINDINGS: None. IMPRESSION: Prominent bibasilar airspace opacities with small to moderate right and small left pleural effusion. Venous congestion. Bilateral paratracheal prominence may represent prominent vasculature. Right hilar prominence.
[2016-12-07] MEDS: Albuterol-Ipratrop 3 mg / 0.5 (3 ml) UD INH SCH ×3 (13:30→20:29)
--- NOTE | 2016-12-07 15:50 | CP.PCM.PN ---
Subjective - Date & Time of Evaluation Date of Evaluation: 12/07/16 Time of Evaluation: 15:08 - Subjective Subjective: Patient is confused with facial mask on for mild respiratory distress, offers no complaints. Family meeting held attended by patient's goddaughter Arlette Larkin and myself. Goals of care discussed. Objective - Vital Signs/Intake and Output Vital Signs (last 24 hours): Temp Pulse Resp BP Pulse Ox 98.1 F 111 H 18 131/74 99 12/07/16 04:00 12/07/16 04:00 12/07/16 04:00 12/07/16 11:08 12/07/16 04:00 Intake and Output: 12/07/16 12/07/16 06:59 18:59 Intake Total 350 Output Total 0 Balance 350 - Medications Medications: Current Medications Acetaminophen (Tylenol 650mg/20.3ml Solution Ud) 650 mg GT Q6 PRN PRN Reason: Fever >100.4 F Last Admin: 12/05/16 12:32 Dose: 650 mg Albuterol/Ipratropium (Duoneb 3 Mg/0.5 Mg (3 Ml) Ud) 3 ml INH RQ6 [facility] Budesonide (Pulmicort Respules) 0.25 mg INH RQ12 [facility] Last Admin: 12/07/16 07:22 Dose: 0.25 mg Diltiazem HCl (Cardizem) 60 mg PO Q6 [facility] Last Admin: 12/07/16 11:40 Dose: 60 mg Furosemide (Lasix) 40 mg IVP DAILY [facility] Last Admin: 12/07/16 11:08 Dose: 40 mg Tigecycline 50 mg/ Sodium (Chloride) 100 mls @ 100 mls/hr IV Q12H [facility] Last Admin: 12/07/16 12:07 Dose: 100 mls/hr Vancomycin HCl 750 mg/ Sodium (Chloride) 250 mls @ 166.6 mls/hr IVPB Q12H [facility] Last Admin: 12/07/16 10:51 Dose: 166.6 mls/hr Fluconazole (Diflucan Iv 200 Mg/100 Ml Ns) 100 mls @ 100 mls/hr IVPB DAILY [facility] Last Admin: 12/07/16 09:26 Dose: 100 mls/hr Insulin Human Regular (Novolin R) 0 unit SC TID [facility] PRN Reason: Protocol Last Admin: 12/07/16 10:59 Dose: Not Given Ipratropium [place] (Atrovent) 0.5 mg IH RQ12 [facility] Last Admin: 12/07/16 07:22 Dose: 0.5 mg Methimazole (Tapazole) 10 mg PO TID [facility] Last Admin: 12/07/16 09:30 Dose: 10 mg Methylprednisolone (Solu-Medrol) 40 mg IVP Q8 [facility] Metoprolol Tartrate (Lopressor) 25 mg PO BID [facility] Last Admin: 12/07/16 09:30 Dose: 25 mg Pantoprazole Sodium (Protonix Inj) 40 mg IVP DAILY [facility] Last Admin: 12/07/16 11:07 Dose: 40 mg Potassium Chloride (Potassium Chloride Oral Soln) 20 meq PO DAILY [facility] Last Admin: 12/07/16 09:28 Dose: Not Given - Labs Labs: 12/07/16 08:06 12/07/16 06:43 PT 12.0 SECONDS (9.7-12.2) 11/13/16 04:57 INR 1.1 11/13/16 04:57 APTT 38 SECONDS (21-34) H D 11/13/16 04:57 - Constitutional Appears: Confused, Chronically Ill - Eye Exam Eye Exam: Normal appearance, PERRL Pupil Exam: NORMAL ACCOMODATION - ENT Exam ENT Exam: Mucous Membranes Dry - Neck Exam Neck Exam: Normal Inspection - Respiratory Exam Respiratory Exam: Decreased Breath Sounds, Respiratory Distress - Cardiovascular Exam Cardiovascular Exam: Tachycardia - GI/Abdominal Exam GI & Abdominal Exam: Hypoactive Bowel Sounds - Rectal Exam Rectal Exam: Deferred - Extremities Exam Extremities Exam: Pedal Edema - Back Exam Back Exam: NORMAL INSPECTION - Neurological Exam Neurological Exam: Alert, Altered Neuro motor strength exam: Left Upper Extremity: 2/1, Right Upper Extremity: 2/1 , Left Lower Extremity: 2/1, Right Lower Extremity: 2/1 - Psychiatric Exam Psychiatric exam: Anxious - Skin Skin Exam: Pallor Assessment and Plan - Assessment and Plan (Free Text) Assessment: Patient examined sitting in the chair with face mask on, agitated and confused, pulling on the tubes and attachments. The CXR from today was suggestive of B/L pleural effusion and venous congestion. patient has had very poor PO intake for quite while and the concern about her wellbeing has risen. Due to AMS patient has not been able to participate in goals of care, and her only box person on chart Kieran Cruz has not returned our calls. Patient was planned for Guardianship, until yesterday when Nancy called the unit and we agreed to family meeting for today. At the meeting attended by Arlette PORTILLO and myself, Nancy stated that she has been taking care of patient for more than 11 years , and that patient does not have any living relatives. Nancy who introduces her self as patient's Goddaughter stated that on many different occasions patient had stated that she would want Nancy to be her medical decision maker in case patient loses her decision making capacity. Nancy also reports that those statements were witnessed by other people. There is no written document suggesting other POA. I reviewed patent's medical condition and suggested that patient has been refusing food for quite while and we were concerned with her becoming malnourished. As per nursing, patient has taken the most few spoons of apple sauce/ day. The feeding tube was suggested by Doctor Pate the PMD, and Nancy agreed with it. Further I discussed patient's breathing status, her need for face mask and another concern that if her breathing worsened despite all prudent measures applied, that re intubation may have to be done and assistance form MV. Nancy was very specific that patient has told her in the past that if her health deteriorates to the point that meaningful recovery is not expected, she would not want to be kept alive on artificial life support. This was shared with Doctor Calle, Doctor Pate and Doctor Whiteside, and they all agreed with. Doctor Pate had asked me to put in the order DNR/DNI. Impression * Patient is in mild respiratory distress. CXR significant for pulmonary congestion and B/L pleural effusion * Patient is confused and lacks decision making capacity * Patient has had poor PO intake and PEG is suggested * Patient's God daughter Nancy Alcaraz states long lasting friendship with patient and came forward acting in patient's best interest * Nancy suggested patient told her in the past she would not want to be kept alive on life support * MD Pate agreed with DNR/DNI Suggestion * Would continue all ordinary measures to support life * PEG insertion when patient stable for procedure * If patient's respiratory status becomes irreversibly destroyed and patient life would depend on life support, than would promote natural
[2016-12-07] MEDS: MethylPREDNISolone 40 mg Vial IVP SCH ×2 (16:10→21:46)
--- NOTE | 2016-12-07 16:26 | RAD ---
HISTORY: verify right PICC COMPARISON: 12/07/2016. FINDINGS: LUNGS: Hazy opacity in the lung bases. PLEURA: Bilateral small to moderate-sized pleural effusions. CARDIOVASCULAR: Enlarged heart. OSSEOUS STRUCTURES: The osseous structures demonstrate degenerative changes. VISUALIZED UPPER ABDOMEN: Upper abdomen is suboptimally evaluated. OTHER FINDINGS: Introduction of right-sided PICC with the distal tip of the catheter overlying the projection of the SVC. IMPRESSION: Introduction of right-sided PICC with the distal tip of the catheter overlying the projection of the SVC. Other findings as above.
--- NOTE | 2016-12-07 16:47 | CP.PCM.PN ---
Subjective - Date & Time of Evaluation Date of Evaluation: 12/07/16 Time of Evaluation: 16:00 - Subjective Subjective: Patient seen and examined. He remains confused and tachycardic Patient placed on nonrebreather mask for hypoxemia and shortness of breath Afebrile Poor appetite and oral inta Patient lacks decision making capacity, Patient's God daughter Nancy Alcaraz states long lasting friendship with patient Nancy suggested patient told her in the past she would not want to be kept alive on life support, pt is DNR/DNI Objective - Vital Signs/Intake and Output Vital Signs (last 24 hours): Temp Pulse Resp BP Pulse Ox 98.1 F 111 H 18 131/74 99 12/07/16 04:00 12/07/16 04:00 12/07/16 04:00 12/07/16 11:08 12/07/16 04:00 Intake and Output: 12/07/16 12/07/16 06:59 18:59 Intake Total 350 Output Total 0 Balance 350 - Medications Medications: Current Medications Acetaminophen (Tylenol 650mg/20.3ml Solution Ud) 650 mg GT Q6 PRN PRN Reason: Fever >100.4 F Last Admin: 12/05/16 12:32 Dose: 650 mg Albuterol/Ipratropium (Duoneb 3 Mg/0.5 Mg (3 Ml) Ud) 3 ml INH RQ6 [facility] Budesonide (Pulmicort Respules) 0.25 mg INH RQ12 [facility] Last Admin: 12/07/16 07:22 Dose: 0.25 mg Diltiazem HCl (Cardizem) 60 mg PO Q6 [facility] Last Admin: 12/07/16 11:40 Dose: 60 mg Furosemide (Lasix) 40 mg IVP DAILY [facility] Last Admin: 12/07/16 11:08 Dose: 40 mg Tigecycline 50 mg/ Sodium (Chloride) 100 mls @ 100 mls/hr IV Q12H [facility] Last Admin: 12/07/16 12:07 Dose: 100 mls/hr Vancomycin HCl 750 mg/ Sodium (Chloride) 250 mls @ 166.6 mls/hr IVPB Q12H [facility] Last Admin: 12/07/16 10:51 Dose: 166.6 mls/hr Fluconazole (Diflucan Iv 200 Mg/100 Ml Ns) 100 mls @ 100 mls/hr IVPB DAILY [facility] Last Admin: 12/07/16 09:26 Dose: 100 mls/hr Insulin Human Regular (Novolin R) 0 unit SC TID [facility] PRN Reason: Protocol Last Admin: 12/07/16 16:11 Dose: Not Given Ipratropium [place] (Atrovent) 0.5 mg IH RQ12 [facility] Last Admin: 12/07/16 07:22 Dose: 0.5 mg Methimazole (Tapazole) 10 mg PO TID [facility] Last Admin: 12/07/16 16:10 Dose: 10 mg Methylprednisolone (Solu-Medrol) 40 mg IVP Q8 [facility] Last Admin: 12/07/16 16:10 Dose: 40 mg Metoprolol Tartrate (Lopressor) 25 mg PO BID [facility] Last Admin: 12/07/16 09:30 Dose: 25 mg Pantoprazole Sodium (Protonix Inj) 40 mg IVP DAILY [facility] Last Admin: 12/07/16 11:07 Dose: 40 mg Potassium Chloride (Potassium Chloride Oral Soln) 20 meq PO DAILY [facility] Last Admin: 12/07/16 09:28 Dose: Not Given - Labs Labs: 12/07/16 08:06 12/07/16 06:43 PT 12.0 SECONDS (9.7-12.2) 11/13/16 04:57 INR 1.1 11/13/16 04:57 APTT 38 SECONDS (21-34) H D 11/13/16 04:57 Assessment and Plan (1) Pneumonia Status: Acute (2) Atrial fibrillation with rapid ventricular response Status: Acute
--- NOTE | 2016-12-07 20:41 | CP.PCM.PN ---
Subjective - Date & Time of Evaluation Date of Evaluation: 12/07/16 Time of Evaluation: 20:41 - Subjective Subjective: AFEBRILE. ON NONREBREATHER MASK FOR SHORTNESS OF BREATH. POOR ORAL INTAKE. REMAINS CONFUSED AND UNAWARE OF SURROUNDINGS. HAD PALLIATIVE CARE MEETING TODAY. AGREED FOR peg INSERTION ROS.not obtainable. As per observation HEENT : N. Resp : No SOB wheezing, cough Cardio : No CP, PND orthopnea GI : No abd. Pain, n/v EXPORT SPECIALIST : No headache , focal deficit. Musculoskel : N Ext. : Pedal pulses intact, no edema or calf pain Derm : N Psych : N. PE. Pt. is drowsy and awake . ON NO ON BREATHER MASK. V.S As noted in the chart Head ,ear nose,throat and eyes : Normal. Neck : Supple with normal carotids. Lungs: bilateral rhonchi Heart : S1 & S2 normal irregular. . No murmur. S4 + Abd : Soft non tender with normal bowel sounds. Neuro : Moves all ext. with no localized deficit. Ext : BILATERAL LOWER EXTREMITY CELLULITIS WITH EDEMA improving. Neg. calf tenderness Derm : No rashes or decubitus ulcer. Radiology/Labs . 12/07/16-creatinine 0.5/BUN 39 Vanco trough 18.7-ok BLOOD CULTURES -VE GROWTH TO DATE VANCO TROUGH 21.6 - 12/03/16. 12/03 repeat URINE CULTURE +VE YEAST chest x-ray 12/07/16 right PICC line. Hazy opacity in both lung bases with bilateral small to moderate pleural effusions CXR 12/05/16 MODERATE BILATERAL PLEURAL EFFUSIONS, PROMINENT BY BASILAR AIRSPACE OPACITIES vENOUS CONGESTION, UPPER LOBE GRANULOMATOUS CHANGES. Objective - Vital Signs/Intake and Output Vital Signs (last 24 hours): Temp Pulse Resp BP Pulse Ox 97.4 F L 76 20 133/72 93 L 12/07/16 18:53 12/07/16 18:53 12/07/16 18:53 12/07/16 18:53 12/07/16 18:53 Intake and Output: 12/07/16 12/08/16 18:59 06:59 Intake Total 800 Output Total 750 Balance 50 - Medications Medications: Current Medications Acetaminophen (Tylenol 650mg/20.3ml Solution Ud) 650 mg GT Q6 PRN PRN Reason: Fever >100.4 F Last Admin: 12/05/16 12:32 Dose: 650 mg Albuterol/Ipratropium (Duoneb 3 Mg/0.5 Mg (3 Ml) Ud) 3 ml INH RQ6 [facility] Last Admin: 12/07/16 20:29 Dose: 3 ml Budesonide (Pulmicort Respules) 0.25 mg INH RQ12 [facility] Last Admin: 12/07/16 20:29 Dose: Not Given Diltiazem HCl (Cardizem) 60 mg PO Q6 [facility] Last Admin: 12/07/16 17:25 Dose: 60 mg Furosemide (Lasix) 40 mg IVP DAILY [facility] Last Admin: 12/07/16 11:08 Dose: 40 mg Tigecycline 50 mg/ Sodium (Chloride) 100 mls @ 100 mls/hr IV Q12H [facility] Last Admin: 12/07/16 12:07 Dose: 100 mls/hr Vancomycin HCl 750 mg/ Sodium (Chloride) 250 mls @ 166.6 mls/hr IVPB Q12H [facility] Last Admin: 12/07/16 10:51 Dose: 166.6 mls/hr Fluconazole (Diflucan Iv 200 Mg/100 Ml Ns) 100 mls @ 100 mls/hr IVPB DAILY [facility] Last Admin: 12/07/16 09:26 Dose: 100 mls/hr Insulin Human Regular (Novolin R) 0 unit SC TID [facility] PRN Reason: Protocol Last Admin: 12/07/16 18:47 Dose: 2 unit Methimazole (Tapazole) 10 mg PO TID [facility] Last Admin: 12/07/16 17:24 Dose: Not Given Methylprednisolone (Solu-Medrol) 40 mg IVP Q8 [facility] Last Admin: 12/07/16 16:10 Dose: 40 mg Metoprolol Tartrate (Lopressor) 25 mg PO BID [facility] Last Admin: 12/07/16 17:24 Dose: 25 mg Pantoprazole Sodium (Protonix Inj) 40 mg IVP DAILY [facility] Last Admin: 12/07/16 11:07 Dose: 40 mg Potassium Chloride (Potassium Chloride Oral Soln) 20 meq PO DAILY [facility] Last Admin: 12/07/16 09:28 Dose: Not Given - Labs Labs: 12/07/16 08:06 12/07/16 06:43 PT 12.0 SECONDS (9.7-12.2) 11/13/16 04:57 INR 1.1 11/13/16 04:57 APTT 38 SECONDS (21-34) H D 11/13/16 04:57 Assessment and Plan (1) Respiratory failure with hypoxia Status: Acute (2) Pneumonia Status: Acute (3) Lower extremity cellulitis Status: Acute (4) Lymphedema of both lower extremities Status: Acute (5) Diabetes mellitus, insulin dependent (IDDM), uncontrolled Status: Chronic (6) Hyperthyroidism Status: Chronic (7) Atrial fibrillation with rapid ventricular response Status: Acute (8) Obesity (BMI 30-39.9) Status: Acute (9) Candiduria Status: Acute - Assessment and Plan (Free Text) Plan: ON iv VANCOMYCIN 750 EVERY 12 HOURLY. CONTINUE iv TYGACIL 50 MG iv EVERY 12 HOURLY.11/30/16 ON iv DIFLUCAN 200 MG ONCE A DAY DAILY.12/05/16 REPEAT SPUTUM CULTURE-P. PATIENT FOR peg INSERTION WHEN STABLE. CONTINUE LOCAL LOWER EXTREMITY CARE AND DIURESIS. PULMONARY TOILET. DIURESIS PER PMD. NOTED PATIENT DNR/DNI..
--- NOTE | 2016-12-07 22:05 | CP.PCM.PN ---
Subjective - Date & Time of Evaluation Date of Evaluation: 12/07/16 Time of Evaluation: 09:30 - Subjective Subjective: PT CONTINUES TO DETERIOTE, NEXT OF KIN SPOKE TO PALLIATIVE CARE AND OPTED FOR dnr/dni PT IS ALTERERD, AWAKE, AFEBRILE. ON NONREBREATHER MASK FOR SHORTNESS OF BREATH. POOR ORAL INTAKE. REMAINS CONFUSED AND UNAWARE OF SURROUNDINGS. HAD PALLIATIVE CARE MEETING TODAY. AGREED FOR peg INSERTION Objective - Vital Signs/Intake and Output Vital Signs (last 24 hours): Temp Pulse Resp BP Pulse Ox 97.4 F L 76 20 133/72 93 L 12/07/16 18:53 12/07/16 18:53 12/07/16 18:53 12/07/16 18:53 12/07/16 18:53 Intake and Output: 12/07/16 12/08/16 18:59 06:59 Intake Total 800 Output Total 750 Balance 50 - Medications Medications: Current Medications Acetaminophen (Tylenol 650mg/20.3ml Solution Ud) 650 mg GT Q6 PRN PRN Reason: Fever >100.4 F Last Admin: 12/05/16 12:32 Dose: 650 mg Albuterol/Ipratropium (Duoneb 3 Mg/0.5 Mg (3 Ml) Ud) 3 ml INH RQ6 [facility] Last Admin: 12/07/16 20:29 Dose: 3 ml Budesonide (Pulmicort Respules) 0.25 mg INH RQ12 [facility] Last Admin: 12/07/16 20:29 Dose: Not Given Diltiazem HCl (Cardizem) 60 mg PO Q6 [facility] Last Admin: 12/07/16 17:25 Dose: 60 mg Furosemide (Lasix) 40 mg IVP DAILY [facility] Last Admin: 12/07/16 11:08 Dose: 40 mg Tigecycline 50 mg/ Sodium (Chloride) 100 mls @ 100 mls/hr IV Q12H [facility] Last Admin: 12/07/16 12:07 Dose: 100 mls/hr Vancomycin HCl 750 mg/ Sodium (Chloride) 250 mls @ 166.6 mls/hr IVPB Q12H [facility] Last Admin: 12/07/16 21:44 Dose: 166.6 mls/hr Fluconazole (Diflucan Iv 200 Mg/100 Ml Ns) 100 mls @ 100 mls/hr IVPB DAILY [facility] Last Admin: 12/07/16 09:26 Dose: 100 mls/hr Insulin Human Regular (Novolin R) 0 unit SC TID [facility] PRN Reason: Protocol Last Admin: 12/07/16 18:47 Dose: 2 unit Methimazole (Tapazole) 10 mg PO TID [facility] Last Admin: 12/07/16 17:24 Dose: Not Given Methylprednisolone (Solu-Medrol) 40 mg IVP Q8 [facility] Last Admin: 12/07/16 21:46 Dose: 40 mg Metoprolol Tartrate (Lopressor) 25 mg PO BID [facility] Last Admin: 12/07/16 17:24 Dose: 25 mg Pantoprazole Sodium (Protonix Inj) 40 mg IVP DAILY [facility] Last Admin: 12/07/16 11:07 Dose: 40 mg Potassium Chloride (Potassium Chloride Oral Soln) 20 meq PO DAILY [facility] Last Admin: 12/07/16 09:28 Dose: Not Given - Labs Labs: 12/07/16 08:06 12/07/16 06:43 PT 12.0 SECONDS (9.7-12.2) 11/13/16 04:57 INR 1.1 11/13/16 04:57 APTT 38 SECONDS (21-34) H D 11/13/16 04:57 - Constitutional Appears: No Acute Distress, Confused, Chronically Ill - Head Exam Head Exam: ATRAUMATIC, NORMAL INSPECTION, NORMOCEPHALIC - Respiratory Exam Respiratory Exam: Decreased Breath Sounds, Rales, Rhonchi - Cardiovascular Exam Cardiovascular Exam: REGULAR RHYTHM, +S1, +S2. absent: Murmur - GI/Abdominal Exam GI & Abdominal Exam: Soft, Normal Bowel Sounds. absent: Tenderness - Rectal Exam Rectal Exam: Deferred Assessment and Plan (1) Diabetes Status: Chronic (2) HTN (hypertension) Status: Chronic (3) Bilateral lower leg cellulitis Status: Deleted (4) Atrial fibrillation with rapid ventricular response Status: Acute (5) CHF (congestive heart failure) Status: Acute (6) Pleural effusion Status: Acute
[2016-12-08] MEDS: Albuterol-Ipratrop 3 mg / 0.5 (3 ml) UD INH SCH (01:24)
[2016-12-08] MEDS ORDERED: Metoprolol 1 mg/ml Inj IVP ONE ×2 (03:35→07:45)
[2016-12-08] MEDS ORDERED: Levalbuterol 0.63 MG/3 ML Inhal Soln UD INH PRN (03:43)
[2016-12-08 03:58] LABS: CHLORIDE 104 mmol/L (98-107); POTASSIUM 3.6 mmol/L (3.6-5.2); SODIUM 151 mmol/L (132-148)
[2016-12-08 04:01] LABS: BLOOD UREA NITROGEN 47 mg/dL (7-17); CARBON DIOXIDE 36 mmol/L (22-30); GFR AFRICAN-AMERICAN > 60
[2016-12-08 04:02] LABS: CALCIUM 8.7 mg/dl (8.6-10.4); GLUCOSE,RANDOM 247 mg/dL (65-105); MAGNESIUM 1.9 mg/dL (1.6-2.3)
[2016-12-08 04:03] LABS: ABG ALLEN TEST POS; ARTERIAL BLOOD HGB O2 SAT 92.2 % (95.0-98.0); CARBOXYHEMOGLOBIN 2.2 % (0.5-1.5); DRAW SITE RR; HHB 4.2 % (0.0-5.0); METHEMOGLOBIN 1.4 % (0.0-3.0)
[2016-12-08] MEDS: MethylPREDNISolone 40 mg Vial IVP SCH ×3 (05:18→22:42)
[2016-12-08] MEDS: Budesonide 0.25 mg/2 ml Inhal Susp UD INH SCH ×2 (07:35→20:30)
[2016-12-08] MEDS: Potassium Chloride 20 mEq/15 ml LIQ UD PO SCH ×2 (10:40→11:08)
[2016-12-08] MEDS: (Novolin R) Insulin Human Regular 100 units/ml vial SC SCH ×3 (10:41→19:30)
[2016-12-08] MEDS: Fluconazole IV 200mg/100 ml NS 100 ML IVPB SCH (14:01)
--- NOTE | 2016-12-08 20:07 | CP.PCM.PN ---
Subjective - Date & Time of Evaluation Date of Evaluation: 12/08/16 Time of Evaluation: 20:07 - Subjective Subjective: AFEBRILE NONREBREATHER MASK REMAINS CONFUSED AND UNAWARE OF SURROUNDINGS. ON PALLIATIVE CARE DNR/DNI AGREED FOR peg INSERTION ROS.not obtainable. As per observation HEENT : N. Resp : No SOB wheezing, cough Cardio : No CP, PND orthopnea GI : No abd. Pain, n/v NURSE SEXUAL ASSAULT : No headache , focal deficit. Musculoskel : N Ext. : Pedal pulses intact, no edema or calf pain Derm : N Psych : N. PE. Pt. is drowsy and awake . ON NON BREATHER MASK. V.S As noted in the chart Head ,ear nose,throat and eyes : Normal. Neck : Supple with normal carotids. Lungs: bilateral rhonchi Heart : S1 & S2 normal irregular. . No murmur. S4 + Abd : Soft non tender with normal bowel sounds. Neuro : Moves all ext. with no localized deficit. Ext : BILATERAL LOWER EXTREMITY CELLULITIS WITH EDEMA improving. Neg. calf tenderness Derm : No rashes or decubitus ulcer. Radiology/Labs . 12/07/16-creatinine 0.5/BUN 39 Vanco trough 12/07. 18.7-ok BLOOD CULTURES -VE GROWTH TO DATE VANCO TROUGH 21.6 - 12/03/16. 12/03 repeat URINE CULTURE +VE YEAST chest x-ray 12/07/16 right PICC line. Hazy opacity in both lung bases with bilateral small to moderate pleural effusions CXR 12/05/16 MODERATE BILATERAL PLEURAL EFFUSIONS, PROMINENT BY BASILAR AIRSPACE OPACITIES vENOUS CONGESTION, UPPER LOBE GRANULOMATOUS CHANGES. Objective - Vital Signs/Intake and Output Vital Signs (last 24 hours): Temp Pulse Resp BP Pulse Ox 99.4 F 84 22 110/85 98 12/08/16 16:03 12/08/16 16:03 12/08/16 16:03 12/08/16 19:28 12/08/16 16:03 - Medications Medications: Current Medications Acetaminophen (Tylenol 650mg/20.3ml Solution Ud) 650 mg GT Q6 PRN PRN Reason: Fever >100.4 F Last Admin: 12/05/16 12:32 Dose: 650 mg Albuterol Sulfate (Albuterol 0.042% Inhal [place] (1.25mg/3ml) Ud) 1.25 mg INH RQ6 PRN PRN Reason: Wheezing Budesonide (Pulmicort Respules) 0.25 mg INH RQ12 [facility] Last Admin: 12/08/16 07:35 Dose: 0.25 mg Diltiazem HCl (Cardizem) 60 mg PO Q6 [facility] Last Admin: 12/08/16 19:30 Dose: 60 mg Furosemide (Lasix) 40 mg IVP DAILY [facility] Last Admin: 12/08/16 11:01 Dose: Not Given Tigecycline 50 mg/ Sodium (Chloride) 100 mls @ 100 mls/hr IV Q12H [facility] Last Admin: 12/08/16 11:04 Dose: 100 mls/hr Vancomycin HCl 750 mg/ Sodium (Chloride) 250 mls @ 166.6 mls/hr IVPB Q12H [facility] Last Admin: 12/08/16 10:56 Dose: 166.6 mls/hr Fluconazole (Diflucan Iv 200 Mg/100 Ml Ns) 100 mls @ 100 mls/hr IVPB DAILY [facility] Last Admin: 12/08/16 14:01 Dose: 100 mls/hr Insulin Human Regular (Novolin R) 0 unit SC TID [facility] PRN Reason: Protocol Last Admin: 12/08/16 19:30 Dose: Not Given Methimazole (Tapazole) 10 mg PO TID [facility] Last Admin: 12/08/16 19:29 Dose: 10 mg Methylprednisolone (Solu-Medrol) 40 mg IVP Q8 [facility] Last Admin: 12/08/16 14:02 Dose: 40 mg Metoprolol Tartrate (Lopressor) 25 mg PO BID [facility] Last Admin: 12/08/16 19:28 Dose: 25 mg Pantoprazole Sodium (Protonix Inj) 40 mg IVP DAILY [facility] Last Admin: 12/08/16 10:40 Dose: 40 mg Potassium Chloride (Potassium Chloride Oral Soln) 20 meq PO DAILY [facility] Last Admin: 12/08/16 11:08 Dose: Not Given - Labs Labs: 12/07/16 08:06 12/08/16 03:49 PT 12.0 SECONDS (9.7-12.2) 11/13/16 04:57 INR 1.1 11/13/16 04:57 APTT 38 SECONDS (21-34) H D 11/13/16 04:57 Assessment and Plan (1) Respiratory failure with hypoxia Status: Acute (2) Pneumonia Status: Acute (3) Lower extremity cellulitis Status: Acute (4) Lymphedema of both lower extremities Status: Acute (5) Diabetes mellitus, insulin dependent (IDDM), uncontrolled Status: Chronic (6) Hyperthyroidism Status: Chronic (7) Atrial fibrillation with rapid ventricular response Status: Acute (8) Obesity (BMI 30-39.9) Status: Acute (9) Candiduria Status: Acute - Assessment and Plan (Free Text) Plan: Plan: ON iv VANCOMYCIN 750 EVERY 12 HOURLY. DC iv TYGACIL 50 MG iv EVERY 12 HOURLY.11/30/16 -9TH DAY ON iv DIFLUCAN 200 MG ONCE A DAY DAILY.12/05/16 REPEAT SPUTUM CULTURE-P. PATIENT FOR peg INSERTION WHEN STABLE. CONTINUE LOCAL LOWER EXTREMITY CARE AND DIURESIS. PULMONARY TOILET.
[2016-12-08] MEDS: Albuterol 0.042% Inhal Sol (1.25 mg/3 mL) UD INH PRN (20:30)
--- NOTE | 2016-12-08 21:30 | CP.PCM.PN ---
Subjective - Date & Time of Evaluation Date of Evaluation: 12/08/16 Time of Evaluation: 21:23 - Subjective Subjective: IDDM & hyperthyroidism Objective - Vital Signs/Intake and Output Vital Signs (last 24 hours): Temp Pulse Resp BP Pulse Ox 99.4 F 134 H 22 110/85 98 12/08/16 16:03 12/08/16 20:32 12/08/16 16:03 12/08/16 19:28 12/08/16 16:03 - Medications Medications: Current Medications Acetaminophen (Tylenol 650mg/20.3ml Solution Ud) 650 mg GT Q6 PRN PRN Reason: Fever >100.4 F Last Admin: 12/05/16 12:32 Dose: 650 mg Albuterol Sulfate (Albuterol 0.042% Inhal Gerri (1.25mg/3ml) Ud) 1.25 mg INH RQ6 PRN PRN Reason: Wheezing Last Admin: 12/08/16 20:30 Dose: 1.25 mg Budesonide (Pulmicort Respules) 0.25 mg INH RQ12 [facility] Last Admin: 12/08/16 20:30 Dose: 0.25 mg Diltiazem HCl (Cardizem) 60 mg PO Q6 [facility] Last Admin: 12/08/16 19:30 Dose: 60 mg Furosemide (Lasix) 40 mg IVP DAILY [facility] Last Admin: 12/08/16 11:01 Dose: Not Given Vancomycin HCl 750 mg/ Sodium (Chloride) 250 mls @ 166.6 mls/hr IVPB Q12H [facility] Last Admin: 12/08/16 10:56 Dose: 166.6 mls/hr Fluconazole (Diflucan Iv 200 Mg/100 Ml Ns) 100 mls @ 100 mls/hr IVPB DAILY [facility] Last Admin: 12/08/16 14:01 Dose: 100 mls/hr Insulin Human Regular (Novolin R) 0 unit SC TID [facility] PRN Reason: Protocol Last Admin: 12/08/16 19:30 Dose: Not Given Methimazole (Tapazole) 10 mg PO TID [facility] Last Admin: 12/08/16 19:29 Dose: 10 mg Methylprednisolone (Solu-Medrol) 40 mg IVP Q8 [facility] Last Admin: 12/08/16 14:02 Dose: 40 mg Metoprolol Tartrate (Lopressor) 25 mg PO BID [facility] Last Admin: 12/08/16 19:28 Dose: 25 mg Pantoprazole Sodium (Protonix Inj) 40 mg IVP DAILY [facility] Last Admin: 12/08/16 10:40 Dose: 40 mg Potassium Chloride (Potassium Chloride Oral Soln) 20 meq PO DAILY [facility] Last Admin: 12/08/16 11:08 Dose: Not Given - Labs Labs: 12/07/16 08:06 12/08/16 03:49 PT 12.0 SECONDS (9.7-12.2) 11/13/16 04:57 INR 1.1 11/13/16 04:57 APTT 38 SECONDS (21-34) H D 11/13/16 04:57 Assessment and Plan (1) Diabetes mellitus, insulin dependent (IDDM), uncontrolled Assessment & Plan: Endocrine consult f/u reason for consult: uncontrolled diabetes & hyperthyroidism is 61 y/o admitted to ICU with fib with rapid venttirucular resonse & DKA / bilateral lower extremities cellulites ,pt was intubated & also started on insulin drip glucose on admission 1023 . also was started on steroid 40 mg po bid , endocrine was contacted yesterday 11/12 for uncontrolled IDDM glucose in 300- 400 & also pt with hyperthyroidism on tapazole trasfered to floor 12/07 DNR/DNI blood glucose log :today 170-200 on episode 400 , no hypoglycemia .on IV slumedrol 40 mg q 8h , with poor intake Allergy NKDA Past medical history : HTN , pedal edema Past surgical history : not documented Psychiatry history : (+) psychiatry disorder Social history : (+)smoking , ETOH use , illicit drug use Family history : unknown ROS: Constitutional: no fever ,tiredness/weakness .HEENT: no earache, change in voice .Respiratory: no cough, sob . CVS :no chest pain, no palpitations . Abdomen : no abdominal pain, no nausea /vomiting , no change bowel movement . [employer] : no light-headedness, dizziness. Extremities : (+) edema , no tremors . Skin: no itching, no rash Physical exam Well developed , confised /lethargic , on bipap VSS , aferbril T 99.4 , pulse 84-134 HEENT: norm cephalic, atrumatic , no lid lag , no exophthalmos , mild stare NECK: supple, no palpable lymphadenopathy THYROID: unable to palpable thyroid , not tender CHEST: fair air entry, bilateral, CVS: S1,S2 , ABDOMEN: bowel sound present, benign, obese, no wide purple striae , no bruises EXTREMITIES: bilateral hyper pigmented skin with edema, clubbing or cyanosis, no palpable hand tremors Skin : acanthosis nigricans lab: T4 7.3 T3 1.00 4/7 Ft4 2.01, wbc 10.9 11/16 FT4 2.59 , tsh <0.02 , T4 8.88 , wbc 9 , LFT wnl thyroid antibodies (-) tsh < 0.02 ,ft4 2.31 , t4 12.1 , a1c 14 , wbc 10.4 Assessment hypoglycemia , resolved uncontrolled IDDM steroids induced hyperglycemia hyperthyroidisim with afib , on cardiazem & lopressor pneumonia /cellutitis a fib obesity Plan - change humalin R low dose coverage [id number] starting above 200 on tapazole 10 mg po tid will monitor Status: Chronic (2) Hyperthyroidism Status: Chronic (3) Atrial fibrillation with rapid ventricular response Status: Acute (4) Pneumonia Status: Acute (5) Steroid-induced hyperglycemia Status: Acute
[2016-12-08] MEDS ORDERED: (Novolin R) Insulin Human Regular 100 units/ml vial SC SCH (21:45)
[2016-12-09] MEDS: (Novolin R) Insulin Human Regular 100 units/ml vial SC SCH ×2 (00:22→06:35)
[2016-12-09] MEDS: Albuterol 0.042% Inhal Sol (1.25 mg/3 mL) UD INH PRN (01:06)
--- NOTE | 2016-12-09 01:26 | CP.PCM.PN ---
Subjective - Date & Time of Evaluation Date of Evaluation: 12/08/16 Time of Evaluation: 09:34 - Subjective Subjective: PT CONTINUES TO DETERIOTE, NEXT OF KIN SPOKE TO PALLIATIVE CARE AND OPTED FOR dnr/dni PT IS ALTERERD, AWAKE, AFEBRILE. ON NONREBREATHER MASK FOR SHORTNESS OF BREATH. POOR ORAL INTAKE. REMAINS CONFUSED AND UNAWARE OF SURROUNDINGS. HAD PALLIATIVE CARE MEETING TODAY. AGREED FOR peg INSERTION NO IMPROVEMENT Objective - Vital Signs/Intake and Output Vital Signs (last 24 hours): Temp Pulse Resp BP Pulse Ox 99.4 F 134 H 22 110/85 98 12/08/16 16:03 12/08/16 20:32 12/08/16 16:03 12/08/16 19:28 12/08/16 16:03 - Medications Medications: Current Medications Acetaminophen (Tylenol 650mg/20.3ml Solution Ud) 650 mg GT Q6 PRN PRN Reason: Fever >100.4 F Last Admin: 12/05/16 12:32 Dose: 650 mg Albuterol Sulfate (Albuterol 0.042% Inhal Gerri (1.25mg/3ml) Ud) 1.25 mg INH RQ6 PRN PRN Reason: Wheezing Last Admin: 12/09/16 01:06 Dose: 1.25 mg Budesonide (Pulmicort Respules) 0.25 mg INH RQ12 [facility] Last Admin: 12/08/16 20:30 Dose: 0.25 mg Diltiazem HCl (Cardizem) 60 mg PO Q6 [facility] Last Admin: 12/09/16 00:14 Dose: 60 mg Furosemide (Lasix) 40 mg IVP DAILY [facility] Last Admin: 12/08/16 11:01 Dose: Not Given Vancomycin HCl 750 mg/ Sodium (Chloride) 250 mls @ 166.6 mls/hr IVPB Q12H [facility] Last Admin: 12/08/16 22:45 Dose: 166.6 mls/hr Fluconazole (Diflucan Iv 200 Mg/100 Ml Ns) 100 mls @ 100 mls/hr IVPB DAILY [facility] Last Admin: 12/08/16 14:01 Dose: 100 mls/hr Insulin Human Regular (Novolin R) 0 unit SC Q6 [facility] PRN Reason: Protocol Last Admin: 12/09/16 00:22 Dose: Not Given Methimazole (Tapazole) 10 mg PO TID [facility] Last Admin: 12/08/16 19:29 Dose: 10 mg Methylprednisolone (Solu-Medrol) 40 mg IVP Q8 [facility] Last Admin: 12/08/16 22:42 Dose: 40 mg Metoprolol Tartrate (Lopressor) 25 mg PO BID [facility] Last Admin: 12/08/16 19:28 Dose: 25 mg Pantoprazole Sodium (Protonix Inj) 40 mg IVP DAILY [facility] Last Admin: 12/08/16 10:40 Dose: 40 mg Potassium Chloride (Potassium Chloride Oral Soln) 20 meq PO DAILY [facility] Last Admin: 12/08/16 11:08 Dose: Not Given - Labs Labs: 12/07/16 08:06 12/08/16 03:49 PT 12.0 SECONDS (9.7-12.2) 11/13/16 04:57 INR 1.1 11/13/16 04:57 APTT 38 SECONDS (21-34) H D 11/13/16 04:57 - Constitutional Appears: No Acute Distress - Head Exam Head Exam: ATRAUMATIC, NORMAL INSPECTION, NORMOCEPHALIC - Eye Exam Eye Exam: EOMI, Normal appearance, PERRL Pupil Exam: NORMAL ACCOMODATION, PERRL - ENT Exam ENT Exam: Mucous Membranes Moist, Normal Exam - Neck Exam Neck Exam: Full ROM, Normal Inspection. absent: Lymphadenopathy - Respiratory Exam Respiratory Exam: Decreased Breath Sounds, Rales, Rhonchi - Cardiovascular Exam Cardiovascular Exam: Irregular Rhythm, +S1, +S2 Assessment and Plan (1) Diabetes Status: Chronic (2) HTN (hypertension) Status: Chronic (3) Bilateral lower leg cellulitis Status: Deleted (4) Atrial fibrillation with rapid ventricular response Status: Acute (5) CHF (congestive heart failure) Status: Acute (6) Pleural effusion Status: Acute
[2016-12-09 01:28] VITALS: RESP 20; TEMP 98.6; O2SAT 94
[2016-12-09] MEDS ORDERED: Metoprolol 1 mg/ml Inj IVP ONE (01:59)
[2016-12-09 06:22] VITALS: BP 94/61
[2016-12-09] MEDS: MethylPREDNISolone 40 mg Vial IVP SCH (06:28)
[2016-12-09 07:46] LABS: POTASSIUM 4.9 mmol/L (3.6-5.2)
[2016-12-09 07:50] LABS: CALCIUM 8.6 mg/dl (8.6-10.4)
[2016-12-09] MEDS: Budesonide 0.25 mg/2 ml Inhal Susp UD INH SCH (07:53)
[2016-12-09 07:55] VITALS: PULSE 120
--- NOTE | 2016-12-09 08:36 | CP.PCM.PRO ---
Pronouncement of Note - Clinical Findings Physical Exam: No Response Verbal/Painful Stimuli, Absent Peripheral Pulses{ Carotid & Femoral}, Absent Heart & Breath Sounds, No Pupillary Light Reflex, No Corneal Reflex, Pupils Fixed & Dilated, Absence of Vital Signs - Pronouncement Time Time of Pronouncement of : 08:30 - Notifications Pronouncement Notifications: Family Notified, Atending Notified Radio Adjuster Notified: No - Autopsy Autopsy Requested: No - N.[place]rina Certificate [place]: [id number] Additional Comments: Was notified by nurse that patient around 0830 am. Examined patient. She has no heart or breath sounds, no pulse, no pupil reflex, pupils are fixed and dialated.
--- NOTE | 2016-12-10 13:43 | CP.PCM.DIS ---
Provider - Provider Date of Admission: 11/04/16 13:18 Attending physician: Matt Pate MD Time Spent in preparation of Discharge (in minutes): 30 Diagnosis - Discharge Diagnosis (1) Diabetes Status: Chronic (2) HTN (hypertension) Status: Chronic (3) Bilateral lower leg cellulitis Status: Deleted (4) Atrial fibrillation with rapid ventricular response Status: Acute (5) CHF (congestive heart failure) Status: Acute (6) Pleural effusion Status: Acute Hospital Course - Lab Results Lab Results: Micro Results 12/07/16 18:30 Naris MRSA Culture - Final MRSA DETECTED 11/30/16 16:00 Blood-Venous Blood Culture - Final NO GROWTH AFTER 5 DAYS 11/30/16 16:00 Blood-Venous Gram Stain - Final TEST NOT PERFORMED 11/30/16 16:00 Blood-Venous Blood Culture - Final NO GROWTH AFTER 5 DAYS 11/30/16 16:00 Blood-Venous Gram Stain - Final TEST NOT PERFORMED 12/03/16 04:39 Urine,Catheterized Urine Culture - Final Yeast Species 11/30/16 16:00 Urine,Hemphill Urine Culture - Final Yeast Species 11/27/16 16:10 Sputum Gram Stain - Final 11/27/16 16:10 Sputum Sputum Culture - Final Methicillin Resistant S Aureus 11/15/16 12:15 Blood-Thru Central Line Blood Culture - Final NO GROWTH AFTER 5 DAYS 11/15/16 12:15 Blood-Thru Central Line Gram Stain - Final TEST NOT PERFORMED 11/15/16 12:45 Blood-Thru Central Line Blood Culture - Final NO GROWTH AFTER 5 DAYS 11/15/16 12:45 Blood-Thru Central Line Gram Stain - Final TEST NOT PERFORMED 11/15/16 14:16 Bronchial Washings Bronchial Culture - Final Methicillin Resistant S Aureus 11/15/16 15:03 Urine,Clean Catch Urine Culture - Final Yeast Species 11/04/16 17:30 Naris MRSA Culture (Admit) - Final MRSA NOT DETECTED Most Recent Lab Values WBC 9.6 K/uL (4.8-10.8) D 12/07/16 08:06 RBC 4.26 Mil/uL (3.80-5.20) 12/07/16 08:06 Hgb 12.6 g/dL (11.0-16.0) 12/07/16 08:06 Hct 38.6 % (34.0-47.0) 12/07/16 08:06 MCV 90.7 fL (81.0-99.0) 12/07/16 08:06 MCH 29.6 pg (27.0-31.0) 12/07/16 08:06 MCHC 32.6 g/dL (33.0-37.0) L 12/07/16 08:06 RDW 17.7 % (11.5-14.5) H 12/07/16 08:06 Plt Count 151 K/uL (130-400) 12/07/16 08:06 MPV 8.4 fL (7.2-11.7) 12/07/16 08:06 Neut % (Auto) 72.8 % (50.0-75.0) 12/07/16 08:06 Lymph % (Auto) 17.6 % (20.0-40.0) L 12/07/16 08:06 [place] % (Auto) 8.6 % (0.0-10.0) 12/07/16 08:06 Eos % (Auto) 0.5 % (0.0-4.0) 12/07/16 08:06 Baso % (Auto) 0.5 % (0.0-2.0) 12/07/16 08:06 Neut # 7.0 K/uL (1.8-7.0) 12/07/16 08:06 Lymph # 1.7 K/uL (1.0-4.3) 12/07/16 08:06 [place] # 0.8 K/uL (0.0-0.8) 12/07/16 08:06 Eos # 0.0 K/uL (0.0-0.7) 12/07/16 08:06 Baso # 0.0 K/uL (0.0-0.2) 12/07/16 08:06 Neutrophils % (Manual) 83 % (50-75) H 11/24/16 05:54 Band Neutrophils % 1 % (0-2) 11/24/16 05:54 Lymphocytes % (Manual) 10 % (20-40) L 11/24/16 05:54 Reactive Lymphs % 1 % (0-0) H 11/08/16 05:53 Monocytes % (Manual) 6 % (0-10) 11/24/16 05:54 Eosinophils % (Manual) 1 % (0-4) 11/16/16 05:55 Metamyelocytes % 4 % (0-0) H 11/21/16 06:45 Toxic Granulation Present 11/04/16 12:14 Platelet Estimate Normal (NORMAL) 11/24/16 05:54 RBC Morphology Normal 11/15/16 06:30 Polychromasia Slight 11/24/16 05:54 Hypochromasia (manual) Slight 11/24/16 05:54 Poikilocytosis (manual Slight 11/24/16 05:54 Anisocytosis (manual) Slight 11/24/16 05:54 Ovalocytes Slight 11/24/16 05:54 ESR 40 mm/hr (0-20) H 11/30/16 06:06 PT 12.0 SECONDS (9.7-12.2) 11/13/16 04:57 INR 1.1 11/13/16 04:57 APTT 38 SECONDS (21-34) H D 11/13/16 04:57 Plt Function Assay 79 K/uL 11/13/16 16:26 Puncture Site Rr 12/08/16 03:55 pCO2 41 mm/Hg (35-45) 12/08/16 03:55 pO2 66 mm/Hg (80-100) L 12/08/16 03:55 HCO3 33.7 mmol/L (21-28) H 12/08/16 03:55 ABG pH 7.54 (7.35-7.45) H 12/08/16 03:55 ABG Total CO2 36.4 mmol/L (22-28) H 12/08/16 03:55 ABG O2 Saturation 95.6 % (95-98) 12/08/16 03:55 ABG Base Excess 11.4 mmol/L (-2.0-3.0) H 12/08/16 03:55 ABG Hemoglobin 13.3 g/dL (11.7-17.4) 12/08/16 03:55 ABG Carboxyhemoglobin 2.2 % (0.5-1.5) H 12/08/16 03:55 POC ABG HHb (Measured) 4.2 % (0.0-5.0) 12/08/16 03:55 ABG Methemoglobin 1.4 % (0.0-3.0) 12/08/16 03:55 Chaz Test Pos 12/08/16 03:55 VBG pH 7.22 (7.32-7.43) L 11/04/16 12:30 VBG pCO2 59 mmHg (40-60) 11/04/16 12:30 VBG HCO3 20.7 mmol/L 11/04/16 12:30 VBG Total CO2 25.9 mmol/L (22-28) 11/04/16 12:30 VBG O2 Sat (Calc) 76.2 % (40-65) H 11/04/16 12:30 VBG Base Excess -4.5 mmol/L (0.0-2.0) L 11/04/16 12:30 VBG Potassium 5.3 mmol/L (3.6-5.2) H 11/04/16 12:30 A-a O2 Difference 596.0 mm/Hg 12/08/16 03:55 Respiratory Index 9.0 12/08/16 03:55 Hgb O2 Saturation 92.2 % (95.0-98.0) L 12/08/16 03:55 Sodium 132.0 mmol/l (132-148) 11/04/16 12:30 Chloride 92.0 mmol/L (98-107) L 11/04/16 12:30 Glucose > 750 mg/dl (65-105) H* 11/04/16 12:30 Lactate 3.2 mmol/L (0.7-2.1) H 11/04/16 12:30 Liter Flow 40.0 11/07/16 17:35 Mechanical Rate 14 11/23/16 04:20 FiO2 100.0 % 12/08/16 03:55 Tidal Volume 500 11/23/16 04:20 PEEP 5 11/23/16 04:20 Pressure Support 10 11/21/16 05:21 CPAP 5 11/21/16 05:21 Inspiratory BiPAP 12 11/24/16 12:12 Expiratory BiPAP 6 11/24/16 12:12 Sodium 154 mmol/L (132-148) H 12/09/16 07:17 Potassium 4.9 mmol/L (3.6-5.2) 12/09/16 07:17 Chloride 107 mmol/L (98-107) 12/09/16 07:17 Carbon Dioxide 28 mmol/L (22-30) 12/09/16 07:17 Anion Gap 24 (10-20) H 12/09/16 07:17 BUN 80 mg/dL (7-17) H 12/09/16 07:17 Creatinine 2.3 MG/DL (0.7-1.2) H 12/09/16 07:17 Est GFR ( Amer) 26 12/09/16 07:17 Est GFR (Non-Af Amer) 12/09/16 07:17 POC Glucose (mg/dL) 271 mg/dL (65-110) H 12/09/16 06:30 Random Glucose 258 mg/dL (65-105) H 12/09/16 07:17 Hemoglobin A1c 14.3 % (4.2-6.5) H D 11/08/16 05:53 Calcium 8.6 mg/dl (8.6-10.4) 12/09/16 07:17 Phosphorus 3.5 mg/dL (2.5-4.5) 12/01/16 06:41 Magnesium 1.9 mg/dL (1.6-2.3) 12/08/16 03:49 Total Bilirubin 1.3 mg/dL (0.2-1.3) 12/01/16 06:41 Direct Bilirubin 0.6 mg/dL (0.0-0.4) H 11/30/16 06:06 AST 21 U/L (14-36) 12/01/16 06:41 ALT 37 U/L (9-52) 12/01/16 06:41 Alkaline Phosphatase 65 U/L (38-126) 12/01/16 06:41 Ammonia 33 umol/L (9-33) 11/07/16 00:19 Total Creatine Kinase < 20 U/L (30-135) L 12/06/16 02:03 Troponin I 0.0480 ng/mL (0.00-0.120) 11/04/16 12:14 C-React Prot High Sens 6.61 mg/L (1.00-3.00) H 11/30/16 06:06 NT-Pro-B Natriuret Pep 1530 pg/mL (0-900) H 12/06/16 02:03 Total Protein 4.9 g/dL (6.3-8.3) L 12/01/16 06:41 Albumin 2.3 g/dL (3.5-5.0) L 12/01/16 06:41 Globulin 2.6 gm/dL (2.2-3.9) 12/01/16 06:41 Albumin/Globulin Ratio 0.9 (1.0-2.1) L 12/01/16 06:41 Triglycerides 154 mg/dL (0-149) H D 11/08/16 05:53 Cholesterol 108 mg/dL (0-199) 11/08/16 05:53 LDL Cholesterol Direct 71 mg/dL (0-129) 11/08/16 05:53 HDL Cholesterol 17 mg/dL (30-70) L 11/08/16 05:53 Vitamin B12 > 1000 pg/mL (239-931) H 11/07/16 00:19 Free T4 2.01 ng/dL (0.78-2.19) 11/25/16 06:57 Thyroxine (T4) 7.35 ug/dL (5.5-11.0) 11/26/16 06:35 Total T3 1.00 nmol/L (1.49-2.60) L 11/26/16 06:35 TSH 3rd Generation < 0.02 mIU/L (0.46-4.68) L 11/25/16 06:57 Venous Blood Potassium 5.3 mmol/L (3.6-5.2) H 11/04/16 12:30 Urine Color Yellow (YELLOW) 12/03/16 06:21 Urine Clarity Hazy (Clear) 12/03/16 06:21 Urine pH 5.0 (5.0-8.0) 12/03/16 06:21 Ur Specific [place] 1.021 (1.003-1.030) 12/03/16 06:21 Urine Protein Negative mg/dL (NEGATIVE) 12/03/16 06:21 Urine Glucose (UA) 1+ mg/dL (Normal) 12/03/16 06:21 Urine Ketones Negative mg/dL (NEGATIVE) 12/03/16 06:21 Urine Blood Negative (NEGATIVE) 12/03/16 06:21 Urine Nitrate Negative (NEGATIVE) 12/03/16 06:21 Urine Bilirubin Negative (NEGATIVE) 12/03/16 06:21 Urine Urobilinogen Normal mg/dL (0.2-1.0) 12/03/16 06:21 Ur Leukocyte Esterase 1+ Mary/uL (Negative) H 12/03/16 06:21 Urine WBC (Auto) 80 /hpf (0-5) H 12/03/16 06:21 Urine RBC (Auto) 22 /hpf (0-3) H 12/03/16 06:21 Ur Squamous Epith Cells 1 /hpf (0-5) 12/03/16 06:21 Urine Bacteria Many (<OCC) H 12/03/16 06:21 Urine Yeast (Budding) Few /hpf (NEGATIVE) H 12/03/16 06:21 Fluid Source Pleural/thoracentesi 11/10/16 15:30 Fluid Appearance Clear (CLEAR) 11/10/16 15:30 Fluid WBC 170.0 /mm3 (0.0-300.0) 11/10/16 15:30 Fluid RBC 424.0 /mm3 (0.0-0.0) H 11/10/16 15:30 Fluid Tot Cell Count 100 (0-0) H 11/10/16 15:30 Fluid Neutrophils 2.0 % (0-0) H 11/10/16 15:30 Fluid Lymphocytes 90.0 % (0-0) H 11/10/16 15:30 Fld Monocyte/Macrophag 8 % (0-0) H 11/10/16 15:30 Fluid Diff Path Review 11/10/16 15:30 Fluid Albumin 0.6 g/dL (()) 11/10/16 15:30 Fluid Comment 11/10/16 15:30 Pleural Total Protein <3.0 g/dL (()) 11/10/16 15:30 Pleural LDH 62 U/L (()) 11/10/16 15:30 Pleural Glucose 253 mg/dL (()) 11/10/16 15:30 Pleural Amylase <10 U/L (()) 11/10/16 15:30 Pleural Lipase 8.0 U/L (<10) 11/10/16 15:30 Pleural Cholesterol see note (()) 11/10/16 15:30 Pleural Triglycerides 21 mg/dL (()) 11/10/16 15:30 Pleur Adenosine Deamin 2.1 U/L (<9.2) 11/10/16 15:30 Vancomycin Trough 18.7 ug/mL (5.0-10.0) H 12/07/16 06:43 Random Vancomycin 16.64 ug/mL 11/30/16 06:06 Serum Ketones Trace (NEGATIVE) 11/04/16 12:14 Thyroperoxidase Ab <1 IU/mL (<9) 11/13/16 04:57 Thyroglobulin Antibody <1 IU/mL (< OR = 1) 11/13/16 04:57 Blood Type A POSITIVE 11/13/16 13:43 Blood Type Confirm A POSITIVE 11/13/16 13:43 Antibody Screen Negative 11/13/16 13:43 - Hospital Course Hospital Course: Pt was on palliative care, DNR,DNI, patient around 0830 am. Examined patient. She has no heart or breath sounds, no pulse, no pupil reflex , pupils are fixed and dialated. Discharge Exam - Head Exam Head Exam: ATRAUMATIC, NORMAL INSPECTION, NORMOCEPHALIC - Eye Exam Pupil Exam: Fixed - Respiratory Exam Respiratory Exam: absent: Accessory Muscle Use, Chest Wall Tenderness, Decreased Breath Sounds, Clear to PA & Lateral, Prolonged Expiratory Phase, Rales, Rhonchi, Wheezes, Respiratory Distress, Stridor, NORMAL BREATHING PATTERN , UNREMARKABLE Discharge Plan - Follow Up Plan Condition: CRITICAL Disposition: WITH WITHOUT AUTOPSY
== END 2016-12-09 08:30 | DRG 581 ==
LOC: C.ER 11:19 → C.9E 13:18 → C.9I 13:31 → C.6T 12-07 17:32
PROVIDERS: ADMIT Internal Medicine; ATTEND Internal Medicine
PROC: 5A09457 Assistance with Respiratory Ventilation, 24-96 Consecutive Hours, Continuous Positive Airway Pressure (ICD-10-PCS; 2016-11-05)
PROC: 05HM33Z Insertion of Infusion Device into Right Internal Jugular Vein, Percutaneous Approach (ICD-10-PCS; 2016-11-05)
PROC: 3E0336Z Introduction of Nutritional Substance into Peripheral Vein, Percutaneous Approach (ICD-10-PCS; 2016-11-05)
PROC: 5A1955Z Respiratory Ventilation, Greater than 96 Consecutive Hours (ICD-10-PCS; principal; 2016-11-08)
PROC: 0BH17EZ Insertion of Endotracheal Airway into Trachea, Via Natural or Artificial Opening (ICD-10-PCS; 2016-11-08)
PROC: 0W993ZZ Drainage of Right Pleural Cavity, Percutaneous Approach (ICD-10-PCS; 2016-11-10)
PROC: 2Y41X5Z Packing of Nasal Region using Packing Material (ICD-10-PCS; 2016-11-13)
PROC: 0B978ZZ Drainage of Left Main Bronchus, Via Natural or Artificial Opening Endoscopic (ICD-10-PCS; 2016-11-15)
PROC: 0B938ZZ Drainage of Right Main Bronchus, Via Natural or Artificial Opening Endoscopic (ICD-10-PCS; 2016-11-15)
PROC: 0B978ZZ Drainage of Left Main Bronchus, Via Natural or Artificial Opening Endoscopic (ICD-10-PCS; 2016-11-16)
PROC: 0B938ZZ Drainage of Right Main Bronchus, Via Natural or Artificial Opening Endoscopic (ICD-10-PCS; 2016-11-16)
PROC: 0B978ZZ Drainage of Left Main Bronchus, Via Natural or Artificial Opening Endoscopic (ICD-10-PCS; 2016-11-18)
PROC: 0B938ZZ Drainage of Right Main Bronchus, Via Natural or Artificial Opening Endoscopic (ICD-10-PCS; 2016-11-18)
PROC: 02HV33Z Insertion of Infusion Device into Superior Vena Cava, Percutaneous Approach (ICD-10-PCS; 2016-12-07)
PROC: B548ZZA Ultrasonography of Superior Vena Cava, Guidance (ICD-10-PCS; 2016-12-07)
DX: A41.9 Sepsis, unspecified organism (principal); J15.212 Pneumonia due to Methicillin resistant Staphylococcus aureus; J96.01 Acute respiratory failure with hypoxia; I50.31 Acute diastolic (congestive) heart failure; E10.10 Type 1 diabetes mellitus with ketoacidosis without coma; J96.02 Acute respiratory failure with hypercapnia; Z99.11 Dependence on respirator [ventilator] status; I11.0 Hypertensive heart disease with heart failure; D69.6 Thrombocytopenia, unspecified; E10.649 Type 1 diabetes mellitus with hypoglycemia without coma; J98.11 Atelectasis; B37.49 Other urogenital candidiasis; J91.8 Pleural effusion in other conditions classified elsewhere; E87.0 Hyperosmolality and hypernatremia; L03.115 Cellulitis of right lower limb; L03.116 Cellulitis of left lower limb; E87.6 Hypokalemia; E05.90 Thyrotoxicosis, unspecified without thyrotoxic crisis or storm; R65.20 Severe sepsis without septic shock; T17.890A Other foreign object in other parts of respiratory tract causing asphyxiation, initial encounter; E83.51 Hypocalcemia; I48.91 Unspecified atrial fibrillation; Z79.01 Long term (current) use of anticoagulants; F17.200 Nicotine dependence, unspecified, uncomplicated; Z79.4 Long term (current) use of insulin; E66.9 Obesity, unspecified; Z68.32 Body mass index [BMI] 32.0-32.9, adult; Z66 Do not resuscitate; R04.0 Epistaxis; I89.0 Lymphedema, not elsewhere classified; F41.8 Other specified anxiety disorders; R13.10 Dysphagia, unspecified; K21.9 Gastro-esophageal reflux disease without esophagitis; Z51.5 Encounter for palliative care; N28.9 Disorder of kidney and ureter, unspecified; E03.9 Hypothyroidism, unspecified